=== PATIENT | female | born 1955 | race Caucasian/White ===

== ENCOUNTER 2022-08-03 12:54 | Outpatient (CLI) | payer MEDICARE, OTHER, SELFPAY ==
--- NOTE | ~2022-08-03 | US_ITS ---
EXAMINATION: US carotid duplex BI DATE: 08/03/2022 14:50 INDICATION: Carotid stenosis TECHNIQUE: Grayscale, color Doppler, and pulsed Doppler images of the cervical carotid arteries were obtained. The degree of vessel stenosis is placed in one of the following categories: normal, <50%, 5 0-69%, >=70% but less than near-occlusion, near-occlusion, or total occlusion. Note that percent sten osis relative to normal distal artery lumen diameter is indirectly measured from velocity measurement s as described by Jono, et al. Radiology 2003; 229:340-346. Notes: Normal: Peak systolic velocity <125 centimeters/sec and no plaque <50%. Peak systolic velocity <125 ( EDV <40; ICA/CCA PSV ratio <2.0; used these factors only a tandem lesions or low cardiac output or co ntralateral disease) 50-69 %: PSV 125-230 (EDV 40-100; ratio 2-4) >= 70% but less than near occlusion: PSV greater than 230 (EDV > 100; ratio> 4.0) Near Occlusion: PSV that is variable; markedly narrowed lumen Occlusion: Absent flow on color/spectral Doppler and no lumen on cardona scale. COMPARISON: None. FINDINGS: RIGHT: The right common carotid artery (CCA) peak systolic velocity (PSV) is 78 cm/s. The right internal car otid artery (ICA) PSV is 122 cm/s. The right ICA end-diastolic velocity (EDV) is 19 cm/s. The right I CA/CCA PSV ratio is 1.6. The external carotid artery (ECA) PSV is 232 cm/s. There is antegrade flow i n the right vertebral artery. LEFT: The left CCA PSV is 102 cm/s. The left ICA PSV is 293 cm/s. The left ICA EDV is 62 cm/s. The left ICA /CCA PSV ratio is 2.9. The ECA PSV is 181 cm/s. There is antegrade flow in the left vertebral artery . IMPRESSION: 1. Less than 50% stenosis in the right internal carotid artery by sonographic criteria. 2. Greater than or equal to 70% stenosis in the left internal carotid artery by sonographic criteria. Reviewed, dictated and finalized at location A. HIC DESIGN ASSISTANT IMPRESSION: 1. Less than 50% stenosis in the right internal carotid artery by sonographic c riteria. 2. Greater than or equal to 70% stenosis in the left internal carotid artery by sonographic criteria.
--- NOTE | ~2022-08-03 | US_ITS ---
US art doppler w press LE BI INDICATION: Intermittent claudication bilaterally. TECHNIQUE: Segmental pressures and plethysmographic and Doppler waveforms of the brachial and lower e xtremity arteries were obtained. COMPARISON: None. FINDINGS: Right and left brachial artery pressures of 193 mm Hg and 187 mm Hg, respectively, are concordant (no rmal difference <= 30 mmHg). There is bilateral mixed monophasic and biphasic flow in the lower extre mity arteries. The femoral artery pressures are significantly lower than the brachial pressures, cons istent with inflow disease. The right ankle-brachial index (ALEXIS) is 0.49 (normal >= 0.9-1.0). The right great toe-brachial index (TBI) is 0.26 (normal >= 0.60). The left ALEXIS is 0.41. The left TBI is 0.23. IMPRESSION: 1. Moderate-severe bilateral lower extremity peripheral vascular disease. Reviewed, dictated and finalized at location A. L MAKING SUPERVISOR
== END 2022-08-03 12:55 | disposition home or self-care (01) ==
LOC: ANHIMG 12:56
PROVIDERS: Visit Provider Internal Medicine Cardiovascular Disease
DX: I70.213 Atherosclerosis of native arteries of extremities with intermittent claudication, bilateral legs (principal); I65.23 Occlusion and stenosis of bilateral carotid arteries
CPT/HCPCS: 93880; 93923

== ENCOUNTER 2022-11-26 18:09 | Inpatient (IN) | payer MEDICARE, OTHER, SELFPAY ==
[2022-11-26] VITALS (11 sets, daily range): BP systolic 120–207; BP diastolic 60–87; PULSE 55–82; RESP 10–20; TEMP 36.4–37; O2SAT 96–100; BMI 26.1
--- NOTE | ~2022-11-26 | CT_ITS ---
EXAMINATION: CT abdomen pelvis wo con DATE: 11/26/2022 19:22 INDICATION: Lower abdominal pain TECHNIQUE: Computed tomography (CT) of the abdomen and pelvis was performed without intravenous contr ast. The dose-length product (DLP) was 398.96 mGy-cm. Automated exposure control and iterative recons truction technique were employed. COMPARISON: None FINDINGS: There are two nodules of the right middle lobe which measure 2 mm the heart size is normal. There are changes of prior cardiac surgery. A dialysis catheter ends with its tip in the right atriu m. The gallbladder is surgically absent. The liver, spleen, pancreas, and adrenal glands are normal. There is bilateral atrophy of the kidneys. There is a 3.7 cm fusiform aneurysm of the infrarenal abdo robi aorta. There is calcified atherosclerosis of the aorta and many of the other arteries. A right internal ureteral stent is in expected position. There are multiple dilated loops of small bowel with transition point in the pelvis. There is a spiculated mass of the small bowel mesentery with calcifi cation. There are adjacent lymph nodes of the small bowel mesentery which, although normal in size, c ould reflect metastatic disease A femoral-femoral bypass graft is noted. There is mild lumbar spondyl osis. There are changes of mesh ventral hernia repair. IMPRESSION: 1. 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 Adjacent lymph nodes of the small bowel mesentery could reflect metast atic disease. 2. Fusiform infrarenal abdominal aortic aneurysm. Reviewed, dictated and finalized at location F. IMPRESSION: 1. Small bowel obstruction with transition point in the pelvis, possibly relate d to a carcinoid tumor of the small bowel mesentery. Adjacent lymph nodes of th e small bowel mesentery could reflect metastatic disease. 2. Fusiform infrarenal abdominal aortic aneurysm.
--- NOTE | ~2022-11-26 | XR_ITS ---
EXAMINATION: XR abdomen NG/feed tube insert INDICATION: Nasogastric tube placement TECHNIQUE: Portable AP KUB-NG at 2110 hours COMPARISON: None available FINDINGS: The nasogastric tube is in the stomach. There are multiple dilated loops of small bowel. Th ere is a partially imaged right internal ureteral stent. Changes of mesh ventral hernia repair are no alex. A dialysis catheter ends with its tip in the right atrium. IMPRESSION: 1. Nasogastric tube in the stomach. 2. Small bowel obstruction. Reviewed, dictated and finalized at location F.
--- NOTE | ~2022-11-26 | XR_ITS ---
EXAMINATION: XR fl guide central line place DATE: 11/28/2022 15:54 INDICATION: Central line placement. TECHNIQUE: 5 intraoperative fluoroscopic views of the chest were obtained. I was not present. Fluoros copy exposure time was 17 seconds. COMPARISON: Chest single view 11/28/2022 FINDINGS: The initial image demonstrates a left internal jugular central venous catheter. The second image demonstrates removal of the catheter and a right subclavian central venous catheter with tip in right atrium. Median sternotomy wires and mediastinal surgical clips are seen, likely from prior cor onary artery bypass grafting. The nasogastric tube tip is beyond the inferior margin of the radiograp h, but at least to the stomach. IMPRESSION: 1. Central line tip in right atrium. Reviewed, dictated and finalized at location A.
--- NOTE | ~2022-11-26 | XR_ITS ---
EXAMINATION: XR chest port-a-cath/central DATE: 11/28/2022 15:53 INDICATION: Central line placement. TECHNIQUE: A single frontal view of the chest was obtained. COMPARISON: CT abdomen and pelvis 11/26/2022 FINDINGS: There is mild elevation of right hemidiaphragm. There is mild scarring in right lower lung zone. No pleural effusion or pneumothorax. The heart size is normal. Median sternotomy wires and medi astinal surgical clips are seen, likely from prior coronary artery bypass grafting. The nasogastric t ube tip is in the stomach. Surgical clips in the right upper quadrant are likely from cholecystectomy . A right subclavian central venous catheter is seen with tip in the right atrium. IMPRESSION: 1. Central line tip in right atrium. 2. Chronic mild scarring in right lower lung zone. Reviewed, dictated and finalized at location A.
--- NOTE | ~2022-11-26 | XR_ITS ---
EXAMINATION: XR sm bowel follow through DATE: 11/27/2022 16:21 INDICATION: Small bowel obstruction. TECHNIQUE: Oral contrast was administered, and a time course of radiographs of the abdomen was obtain ed. Fluoroscopy of the small bowel was not performed. Fluoroscopy exposure time was 0 minutes. The to matteo number of images was 5. COMPARISON: CT abdomen and pelvis 11/26/2022 FINDINGS: There are multiple dilated loops of small bowel. There are surgical clips from ventral hernia repair. Vascular stents are noted. The nasogastric tube tip is in the stomach. Surgical clips in the right u pper quadrant are likely from cholecystectomy. There is a right internal ureteral stent in expected p osition. Transit time from the stomach to proximal colon was approximately 1 hour 45 minutes. IMPRESSION: 1. Dilated small bowel with normal transit time of contrast to the colon, consistent with partial sma ll bowel obstruction. Reviewed, dictated and finalized at location A. IMPRESSION: 1. Dilated small bowel with normal transit time of contrast to the colon, consi stent with partial small bowel obstruction.
--- NOTE | ~2022-11-26 | XR_ITS ---
EXAMINATION: XR chest 1V portable DATE: 11/29/2022 14:38 INDICATION: Right lateral chest pain. TECHNIQUE: A single frontal view of the chest was obtained. COMPARISON: Chest single view 11/28/2022 FINDINGS: There is mild elevation of right hemidiaphragm. There is mild scarring in right lower lung zone. No pleural effusion or pneumothorax. The heart size is normal. Median sternotomy wires and medi astinal surgical clips are seen, likely from prior coronary artery bypass grafting. There is a right subclavian central venous catheter tip in right atrium. There is indentation of the catheter between the clavicle and first rib. Surgical clips in the right upper quadrant are likely from cholecystectom y. IMPRESSION: 1. Chronic mild scarring in right lower lung zone. 2. Indentation of the central venous catheter between the clavicle and first rib, which increases the risk of catheter fracture. Reviewed, dictated and finalized at location A. IMPRESSION: 1. Chronic mild scarring in right lower lung zone. 2. Indentation of the central venous catheter between the clavicle and first ri b, which increases the risk of catheter fracture.
--- NOTE | 2022-11-26 19:09 | ED.NAVMDI ---
HPI - Nausea/Vomiting/Diarrhea General Chief complaint: Nausea/Vomiting/Diarrhea <Rebecca Muñiz PA-C - Last Filed: 11/26/22 22:28> Stated complaint: abd pain/vomiting <Rebecca Muñiz PA-C - Last Filed: 11/26/22 22:28> Time Seen by Provider: 11/26/22 18:49 <Rebecca Muñiz PA-C - Last Filed: 11/26/22 22:28> History of Present Illness HPI Narrative: Patient is a 67-year-old female with a history of ESRD on hemodialysis Sunday and through duraflow in her chest (placed 4 months ago at [facility]), numerous vascular bypass surgeries and stenting, hernia repair, SBO x3 treated nonsurgically, here for evaluation of nausea, vomiting and abdominal cramping x2 days. Feels similar to history of bowel obstructions. She took milk of magnesia yesterday and was able to have a bowel movement at noon today, reportedly with her bowel obstruction she usually passes gas as well. She does still make urine and denies any changes to that. Patient followed at [facility] in the past, however was told they do not manage dialysis and therefore will need to find new electric stop installer. <Rebecca Muñiz PA-C - Last Filed: 11/26/22 22:28> Related Data Home medications: Home Medications Medication Instructions Recorded Confirmed aspirin 325 mg tablet 325 mg PO DAILY 11/26/22 11/26/22 carvedilol 6.25 mg tablet 6.25 mg PO BID 11/26/22 11/26/22 clonazepam 1 mg tablet 1 mg PO DAILY PRN Anxiety 11/26/22 11/26/22 furosemide 40 mg tablet 40 mg PO BID 11/26/22 11/26/22 gabapentin 300 mg capsule 300 mg PO HS 11/26/22 11/26/22 hydralazine 25 mg tablet 25 mg PO BID 11/26/22 11/26/22 losartan 25 mg tablet 25 mg PO DAILY 11/26/22 11/26/22 nifedipine 60 mg tablet,extended 60 mg PO DAILY 11/26/22 11/26/22 release thyroid (pork) 60 mg tablet ([employer] SERVICE SUPERVISOR 60 mg PO QAM 11/26/22 11/26/22 Thyroid) <Rebecca Muñiz PA-C - Last Filed: 11/26/22 22:28> Allergies/Adverse reactions: Allergies Allergy/AdvReac Type Severity Reaction Status Date / Time iohexol Allergy Rash Verified 11/26/22 18:20 [From contrast - CT, X-RAY] fentanyl AdvReac Other Verified 11/26/22 18:19 <SAI Fuentes Last Filed: 11/26/22 22:28> Review of Systems Review of Systems: Gen.: Denies fevers or chills Eyes: Denies eye pain or visual change ENT: Denies congestion Respiratory: Denies shortness of breath or cough CV: Denies chest pain or palpitations GI: Reports abdominal pain, nausea and vomiting denies burning, urgency, frequency or hematuria Musculoskeletal: Denies back pain or muscle pain Neuro: Denies numbness, tingling, weakness or focal weakness Skin: Denies rash Except as documented, all other systems reviewed and negative <Rebecca Muñiz PA-C - Last Filed: 11/26/22 22:28> [facility] Past Medical History Medical History: Medical History (Updated 11/28/22 @ 12:59 by Jazlyn Cai MD) Atrial fibrillation 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 No longer on chronic anticoagulation due to bleeds History of small bowel obstruction Hypothyroidism Kidney stones Peripheral artery disease Moderate to severe bilateral lower extremity peripheral vascular disease noted on ABIs July 2022 <Rebecca Muñiz PA-C - Last Filed: 11/26/22 22:28> Surgical History Surgical History: Surgical History (Updated 11/27/22 @ 15:13 by AGUSTINA Muhammad) History of abdominal aortic aneurysm repair (1997) Open repair History of cardiac radiofrequency ablation History of four vessel coronary artery bypass graft (1997) History of vascular surgery History of ve
[2022-11-26] MEDS: ONDANSETRON INJ 4 MG/2 ML VIAL IV PUSH (19:43)
[2022-11-26 19:51] LABS: Basophils Absolute Auto 0.1 K/mm3 (0.0-0.1); Basophils Percent Auto 0.4 % (0.2-1.2); Eosinophils Absolute Auto 0.1 K/mm3 (0-0.3); Eosinophils Percent Auto 0.8 % (0-4.4); Hematocrit 41.2 % (37.0-47.0); Hemoglobin 13.5 g/dL (12.0-15.0); Immature Granulocyte Absolute 0.08 K/mm3 (0.00-0.031); Immature Granulocyte Percent A 0.5 % (0-0.5); Lymphocytes Absolute Auto 1.03 K/mm3 (0.9-3.2); Lymphocytes Percent Auto 6.6 % (18.3-44.2); Mean Corpuscular HGB Conc 32.8 g/dl (32-36); Mean Corpuscular Hemoglobin 29.7 pg (26-34); Mean Corpuscular Volume 90.7 fl (80-100); Mean Platelet Volume 10.6 fl (7.4-10.4); Monocytes Percent Auto 6.4 % (2.6-8.5); Neutrophils Absolute Auto 13.3 K/mm3 (1.3-6.7); Neutrophils Percent Auto 85.3 % (45.5-73.1); Platelet Count Result 324 k/mm3 (150-375); Red Blood Count 4.54 M/mm3 (4.2-5.4); Red Cell Distribution Width 12.9 % (11.5-14.5); White Blood Count 15.6 K/mm3 (4.5-10.0)
[2022-11-26 19:59] LABS: Alanine Aminotransferase 17 U/L (6-35); Albumin Level 5.1 g/dL (3.5-5.1); Alkaline Phosphatase 84 U/L (38-126); Anion Gap 16 mmol/L (8-16); Aspartate Amino Transferase 25 U/L (14-36); Bilirubin,Total 0.8 mg/dL (0.2-1.3); Blood Urea Nitrogen 49 mg/dL (7-17); Calcium 10.8 mg/dL (8.4-10.2); Carbon Dioxide 25 mmol/L (22-30); Chloride 95 mmol/L (98-107); Estimated CRCL calculation 8 ml/min; Estimated Glomerular Filt Rate 9; Glucose 121 mg/dL (65-110); Lactic Acid Reflex 1.3 mmol/L (0.7-2.0); Lipase 101 U/L (23-300); Magnesium 3.4 mg/dL (1.6-2.3); Potassium 4.5 mmol/L (3.4-5.0); Sodium 136 mmol/L (137-145)
[2022-11-26 20:08] LABS: Appearance Urine Cloudy (Clear); Bacteria Urine None Seen /hpf; Bilirubin Urine Negative (Negative); Blood Urine Negative (Negative); Color Urine Yellow (Yellow); Glucose Urine UA Negative (Negative); Ketones Urine Negative (Negative); Leukocyte Esterase Ur 2+ LEU/UL (Negative); Need Manual Microscopic Reviewed; Nitrate Urine Negative (Negative); Non Pathogenic Casts >20; Protein Urine 3+ mg/dL (Negative); Specific Grav Ur 1.017 (1.001-1.035); Squamous Epithelial Cell Urine Moderate /hpf (Few); Urobilinogen Urine 0.2 mg/dL (<2.0); WBC Urine >100 /hpf; pH Urine 5.5 (5.0-9.0)
[2022-11-26 20:17] LABS: Add Urine Microscopic? YES
[2022-11-26] MEDS: SODIUM CHLORIDE 0.9% IV 1,000 ML 500 ML IV CONT (20:36)
--- NOTE | 2022-11-26 23:53 | PM.IMHP ---
H&P: HPI History of Present Illness Date/Time: 11/26/22 23:53 Chief Complaint: ?Pain like when I have my bowel obstructions? Narrative: 67-year-old female with a past medical history of multiple abdominal surgeries, coronary disease status post four-vessel CABG, aortic aneurysm repair, peripheral vascular disease, COPD, essential hypertension, hypothyroidism and end-stage renal disease who presented to the ER with abdominal pain nausea and vomiting similar to when she has had her prior bowel obstructions. The patient reports that she has had bowel obstructions as far back as 2017 due to her history of multiple abdominal surgeries. The patient reports that she began having nausea vomiting and abdominal cramping 2 days prior to presentation. She tried to manage this at home with just eating puddings and soft foods as well as clear liquids. However she has not been able to keep anything down for over 24 hours. She last ate something on the morning of the . After that time her abdominal pain got per aggressively worse. She has continued to have soft mushy bowel movements. She took a dose of milk of magnesia yesterday. She had another small mushy stool after she arrived to the medical floor. She she is passing gas but states that she usually is able to pass gas with her bowel obstructions. Her abdominal pain is improved significantly since NG tube has been placed. She has had about 250 mL out of the NG since she arrived to the medical floor. She states that she still makes urine but does get frequent urinary tract infections since she started on dialysis 1.5 years ago. Her dialysis is on Sunday and Sunday. She usually gets her care at [facility] but they told her the last time she was there that she needs to go to a different hospital when she is having issues since they no longer provide dialysis services inpatient. She reports that she has 2 small vessels to have a AV fistula created and is afraid to have an AV graft created as she has had problems with clotting of her intra-abdominal graft in the past. She had a right-sided dialysis catheter in the right upper chest but it was nonfunctioning and had it replaced 5 months ago she now has 1 in the left upper chest. She reports that she is no longer on anticoagulants besides full-dose aspirin due to history of multiple GI bleeds. The patient was hypertensive in the ER. On arrival to the medical floor patient was diet denying any pain but was markedly hypertensive. She reports that she had not been able to take her antihypertensives today. Dose of IV hydralazine and IV MAX-inhibitor was provided and patient improvement blood pressures. She reports that she at times will not completely empty her bladder and has to sit on the toilet to let her bladder drain. She denies any current dysuria. She has not been having any fevers or chills. She denies chest pain or shortness of breath. Review of Systems Review of Systems: 12 systems were reviewed with pertinent positives and negatives per HPI. Except as documented in the HPI, all other systems were reviewed and are negative. [facility] Past Medical History Medical History (Updated 11/27/22 @ 08:15 by Cleo Guzman DO) Atrial fibrillation Coronary artery disease End-stage renal disease on hemodialysis Essential hypertension History of GI bleed Multiple and requiring transfusion. No longer on chronic anticoagulation due to bleeds Hypothyroidism Kidney stones Peripheral artery disease Surgical History Surgical History (Updated 11/27/22 @ 08:15 by Cleo Guzman DO) History of abdominal aortic aneurysm repair (1997) Open repair History of cardiac radiofrequency ablation History of four vessel coronary artery bypass graft (1997) History of ventral hernia repair With mesh Hx laparoscopic cholecystectomy (~2000) Retained ureteral stent Chronic S/P dialysis catheter insertion Right upper chest was placed and r
[2022-11-27 00:48] VITALS: BP 158/65
[2022-11-27] MEDS: hydrALAZINE HCL 20 MG/ML VIAL 10 MG IV PUSH (01:06)
[2022-11-27] MEDS: ENALAPRILAT 1.25 MG/ML VIAL IV PUSH ×5 (01:06→23:24)
[2022-11-27] MEDS: SODIUM CHLORIDE 0.9% IV 1,000 ML 30 ML IV CONT ×2 (01:06→15:25)
[2022-11-27 05:15] VITALS: BP 127/42; PULSE 61; RESP 17; TEMP 37; O2SAT 95
[2022-11-27 08:15] LABS: Basophils Absolute Auto 0.1 K/mm3 (0.0-0.1); Basophils Percent Auto 0.4 % (0.2-1.2); Eosinophils Absolute Auto 0.1 K/mm3 (0-0.3); Eosinophils Percent Auto 0.8 % (0-4.4); Hematocrit 36.2 % (37.0-47.0); Hemoglobin 11.9 g/dL (12.0-15.0); Immature Granulocyte Absolute 0.04 K/mm3 (0.00-0.031); Immature Granulocyte Percent A 0.3 % (0-0.5); Lymphocytes Absolute Auto 1.29 K/mm3 (0.9-3.2); Lymphocytes Percent Auto 9.8 % (18.3-44.2); Mean Corpuscular HGB Conc 32.9 g/dl (32-36); Mean Corpuscular Hemoglobin 30.1 pg (26-34); Mean Corpuscular Volume 91.6 fl (80-100); Mean Platelet Volume 10.2 fl (7.4-10.4); Monocytes Absolute Auto 1.3 K/mm3 (0.1-0.6); Monocytes Percent Auto 9.7 % (2.6-8.5); Neutrophils Absolute Auto 10.4 K/mm3 (1.3-6.7); Platelet Count Result 263 k/mm3 (150-375); Red Blood Count 3.95 M/mm3 (4.2-5.4); Red Cell Distribution Width 13.2 % (11.5-14.5); White Blood Count 13.2 K/mm3 (4.5-10.0)
[2022-11-27 08:25] LABS: Alanine Aminotransferase 14 U/L (6-35); Albumin Level 4.4 g/dL (3.5-5.1); Alkaline Phosphatase 63 U/L (38-126); Anion Gap 11 mmol/L (8-16); Aspartate Amino Transferase 20 U/L (14-36); Bilirubin,Total 0.6 mg/dL (0.2-1.3); Blood Urea Nitrogen 59 mg/dL (7-17); Calcium 9.4 mg/dL (8.4-10.2); Carbon Dioxide 31 mmol/L (22-30); Chloride 96 mmol/L (98-107); Estimated CRCL calculation 7 ml/min; Estimated Glomerular Filt Rate 8; Glucose 113 mg/dL (65-110); Phosphorus 6.5 mg/dL (2.5-4.5); Potassium 3.7 mmol/L (3.4-5.0); Sodium 138 mmol/L (137-145)
[2022-11-27 09:10] LABS: Hepatitis B Surface Antigen Negative (Negative)
[2022-11-27 09:16] LABS: HAV RESULT Negative (Negative); Hepatitis B Core IgM Result Negative (Negative)
[2022-11-27 09:29] LABS: Hepatitis B Surface Anti Res Indeterminate; Hepatitis C Virus Antibody Negative (Negative)
--- NOTE | 2022-11-27 10:28 | PC.NURSE ---
Pt past medical hx is extensive. Pt brought in paperwork outlining most of her procedures. Entered into hx. Paper copied and placed into chart.
--- NOTE | 2022-11-27 11:34 | PM.CNNEP ---
Assessment and Plan Assessment and plan (1) End stage renal disease: Code(s): N18.6 - End stage renal disease Status: Chronic Assessment and Plan: will plan HD today normally does HD on Mondays and Fridays follow electrolytes, volume status, and clearance (2) Small bowel obstruction: Code(s): K56.609 - Unspecified intestinal obstruction, unspecified as to partial versus complete obstruction Status: Acute Assessment and Plan: as evidenced by history and imaging studies NG tube in place for decompression Surgery consulted for further recommendations continue current therapy (3) Essential hypertension: Code(s): I10 - Essential (primary) hypertension Status: Chronic Assessment and Plan: noted fluctuations since admission suspect pain issues playing a role along with inability to take po BP medications recommend PRN IV medications (i.e. hydralazine or labetalol) for now until she can resume home oral BP medications follow trend of hemodynamics (4) Mesenteric mass: Code(s): K63.89 - Other specified diseases of intestine Status: Acute Assessment and Plan: spiculated mass of the small bowel mesentery with calcification, concerning for possible carcinoid tumor Surgery to see I will continue follow patient with you while she remains hospitalized make further recommendations during her hospital course. Thank you for allowing me to participate in the care of this patient. History of Present Illness Reason for Consult Consult date: 11/27/22 Reason for consult: end stage renal disease Chief Complaint Chief complaint: small bowel obstruction History of Present Illness Narrative: The patient is a 67-year-old female with a past medical history as outlined below who presented to [facility] Emergency Room due to complaints of abdominal pain. The patient reports that her abdominal pain in association with nausea and vomiting for last 2-3 days. Initially, she tried to conservative management with just clear liquids and soft foods but when the nausea and vomiting started to occur, she became quite concern. She has a known history of small-bowel obstructions that date back to 2018 secondary to her multiple abdominal surgeries in the past. The symptoms that she was having for last 2-3 days are quite similar to her previous episodes of small-bowel obstructions. Her abdominal pain has progressively worsened although she reports she has had still some soft bowel movements and has been passing flatus. Nonetheless, she came to the emergency room for further assessment Workup and evaluation in the emergency room demonstrated the patient be hemodynamically stable if not hypertensive and in mild to moderate distress secondary to her abdominal pain routine blood test demonstrated labs consistent with her known history of end-stage renal disease with no critical electrolyte abnormalities noted. Subsequent imaging of her abdomen was consistent with a small-bowel obstruction. An NG tube was placed for decompression and general surgery was consulted for further recommendations. She was subsequently admitted to the hospital for further evaluation and therapy. Renal consultation was requested due to her end-stage renal disease. The patient normally dialyzes on a Sunday and Sunday schedule currently at [facility] under the care of Dr. Grey. Prior to this, she was receiving dialysis at [facility] but this facility recently closed down. I am not entirely sure why she only dialyzes 2 times a week but presumably she has significant residual kidney function that allows her to not need 3 time a week dialysis treatments. Her last dialysis treatment was on 11/24/2022. She tells me that she has had issues and problems with dialysis access placement secondary to her significant and profound peripheral vascular disease and a
[2022-11-27] MEDS: ONDANSETRON INJ 4 MG/2 ML VIAL IV PUSH ×2 (12:29→17:16)
--- NOTE | 2022-11-27 13:33 | PM.EVENT ---
Event Note Event Note Event Note: Informed by dialysis nurse that patient's tunneled HD catheter is non-functional despite several attempts at use. Her last treatment was on Sunday (11/24/22) and there were apparently some issues per patient at that time but she was able to complete her treatment. She is unable to recall who or when her current HD catheter was placed but does report she has had several HD catheter exchanges in the past secondary to general HD catheter dysfunction. Will ask Surgery if they can attempt a guidewire exchange of her current HD catheter -- if this is not successful or her new HD catheter still has issues, she may need transfer to another facility that has Vascular Surgery or Interventional Radiology capable of the intervention she needs.
--- NOTE | 2022-11-27 14:10 | PM.IMPN ---
Progress Note: A&P Assessment and Plan (1) Small bowel obstruction: Code(s): K56.609 - Unspecified intestinal obstruction, unspecified as to partial versus complete obstruction Status: Acute Assessment and Plan: Pt does have history of SBO and has had multiple prior abdodminal surgeries. 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 antihypertensives are on hold while NPO appreciate nephrology recommendations for BP control continue IV vasotec q.6 while NPO (3) End-stage renal disease on hemodialysis: Code(s): N18.6 - End stage renal disease; Z99.2 - Dependence on renal dialysis Status: Acute Assessment and Plan: patient is maintained on hemodialysis on Mondays and Fridays appreciate nephrology consultation for dialysis management attempted dialysis today, however tunneled dialysis catheter not functioning. General surgery aware and will await further recommendations (4) Sterile pyuria: Code(s): R82.81 - Pyuria Status: Acute Assessment and Plan: The patient has pyuria but no bacteriuria. She does not have any significant symptoms of UTI. No antibiotics indicated. urine culture is pending Subjective Date/time seen: 11/27/22 14:10 Interval history: date of service: 11/27/2022 Mary Ramirez is a 67-year-old female with a history of ESRD on hemodialysis,bperipheral artery disease, hypertension, and atrial fibrillation who is seen in follow-up for small bowel obstruction. Patient reports she is feeling slightly improved today. She does endorse abdominal cramping. States that her abdominal bloating has improved. She denies nausea or vomiting. She denies fever, chills, sweats, dizziness, or lightheadedness. She reports having approximately 4-5 stools today that she describes as mushy brown. She denies shortness of breath, cough, or chest pain. Does complain of sore throat secondary to NG tube. Review of Systems Review of Systems: 12 systems were reviewed with pertinent positives and negatives per HPI. Except as documented in the HPI, all other systems were reviewed and are negative. All systems reviewed & are unremarkable except as noted in HPI and below Exam Narrative: General: thin, well-appearing 67-year-old female, sitting up in bed, comfortable, NARD Neuro: awake, alert and oriented x4, speech clear, no focal neuro deficits noted HEENMT: normocephalic, atraumatic, EOMI, sclerae anicteric, moist oral mucosa Respiratory: clear to auscultation bilaterally, nonlabored breathing Cardio: regular rate, regular rhythm with S1-S2 Abdomen: nondistended, normoactive bowel sounds, soft, nontender to palpation Extremities: no edema, erythema, or tenderness to palpation, DP pulses 2+ bilaterally Skin: no rashes or lesions, warm and dry Psych: appropriate mood and affect, judgment and insight intact Objective Data Vital Signs Vital Signs: Vital Signs - 24 hr 11/26/22 18:15 11/26/22 20:32 11/26/22 20:47 Temperature 97.5 F L Pulse Rate 69 63 61 Respiratory Rate 20 13 14 Blood Pressure 123/67 189/79 H 177/72 H Pulse Oximetry 100 99 100 Oxygen Delivery Room Air 11/26/22 21:17 11/26/22 21:32 11/26/22 21:40 Temperature Pulse Rate 65 66 63 Respiratory Rate 13 12 10 L
--- NOTE | 2022-11-27 14:35 | PM.CNGS ---
Assessment and Plan Assessment and plan (1) Small bowel obstruction: Code(s): K56.609 - Unspecified intestinal obstruction, unspecified as to partial versus complete obstruction Status: Acute Assessment and Plan: Patient has had multiple previous abdominal surgeries and at least three previous episodes of small bowel obstructions since 2018. CT showed evidence of a small bowel obstruction with a mesenteric mass concerning for possible carcinoid. Her small bowel obstruction could also be related to intraabdominal adhesions from previous surgeries. There are no peritoneal signs on exam. Lactic acid normal. Her abdominal pain has already improved and her abdomen is not distended. She has also had a few liquid bowel movements overnight. Does not appear to have a high-grade small bowel obstruction or acute abdomen at this time. Will continue conservative measures with NG tube decompression, bowel rest, IV fluids, and analgesics as needed. Will order a water-soluble small bowel follow through to further evaluate the obstruction. (2) Mesenteric mass: Code(s): K63.89 - Other specified diseases of intestine Status: Acute Assessment and Plan: CT suggests a spiculated mass of the small bowel mesentery with calcification, concerning for possible carcinoid tumor. Will review CT with Radiologist. Patient denies any known history of a mesenteric mass with previous obstruction. (3) Hemodialysis catheter malfunction: Code(s): T82.41XA - Breakdown (mechanical) of vascular dialysis catheter, initial encounter Status: Acute Assessment and Plan: Left chest tunneled hemodialysis catheter is not functioning. Nephrology requesting to replace the catheter for hemodialysis, which is not currently emergent. Discussed this with Dr. Sal and will work on planning accordingly. (4) End-stage renal disease on hemodialysis: Code(s): N18.6 - End stage renal disease; Z99.2 - Dependence on renal dialysis Status: Acute Assessment and Plan: Nephrology following. She last received hemodialysis on Sunday and they were unable to do dialysis today due to catheter malfunction. See above. (5) Peripheral artery disease: Code(s): I73.9 - Peripheral vascular disease, unspecified Status: Acute (6) History of abdominal aortic aneurysm repair: Onset Date: 1997 Code(s): Z98.890 - Other specified postprocedural states Status: Resolved Plan I have discussed the patient's case and plan of care with Dr. Sal. Thank you for allowing us to see the patient in consultation and we will continue to follow along with you. History of Present Illness Consult details Consult date: 11/27/22 Reason for consult: other (Small bowel obstruction with possible mesenteric mass) Requesting physician: Rebecca Muñiz PA-C Narrative: This is a 67-year-old woman with multiple previous abdominal and vascular surgeries, with a past medical history significant for CAD s/p four-vessel CABG, aortic aneurysm repair, peripheral vascalar disease, COPD, end-stage renal disease on hemodialysis, hypertension, and multiple other medical problems, who presented to the ER via EMS for evaluation of abdominal pain. She has a history of small bowel obstructions in the past, reportedly three since 2018, that have been managed conservatively. She reports an onset of lower abdominal pain that was cramping in nature, starting yesterday. She developed nausea and vomiting. Her symptoms felt similar to previous bowel obstructions. She has been treated at [facility] in the past and was told to go to another facility if she has another bowel obstruction that could also manage her hemodialysis, therefore she presented here for evaluation. Labs showed a WBC count of 15,[address] and l[address] acid [address]3. [address] scan of the abdomen and pelvis showed a small bowel obstruction with transition point in the pelvis, possibly related to a carcinoid tumor of th
[2022-11-27] MEDS: LORazepam INJ (*CRX) 2 MG/ML VIAL 0.5 MG IV PUSH ×2 (15:26→23:47)
[2022-11-27 15:28] VITALS: BP 128/65; PULSE 64; RESP 16; TEMP 37.2; O2SAT 100
[2022-11-27] MEDS: PANTOPRAZOLE SODIUM IV 40 MG VIAL IV PUSH (17:05)
[2022-11-27 20:39] VITALS: BP 149/58; PULSE 65; RESP 17; TEMP 36.8; O2SAT 98
[2022-11-27 23:25] VITALS: BP 147/55
[2022-11-28] VITALS (23 sets, daily range): BP systolic 141–198; BP diastolic 42–97; PULSE 64–82; RESP 14–20; TEMP 36–37; O2SAT 92–100
[2022-11-28] MEDS: ENALAPRILAT 1.25 MG/ML VIAL IV PUSH ×3 (05:12→23:46)
[2022-11-28] MEDS: LORazepam INJ (*CRX) 2 MG/ML VIAL 0.5 MG IV PUSH ×2 (05:15→20:07)
[2022-11-28 05:37] LABS: Hematocrit 38.1 % (37.0-47.0); Mean Corpuscular HGB Conc 31.5 g/dl (32-36); Mean Corpuscular Hemoglobin 29.9 pg (26-34); Mean Platelet Volume 10.6 fl (7.4-10.4); Platelet Count Result 279 k/mm3 (150-375); Red Blood Count 4.01 M/mm3 (4.2-5.4); Red Cell Distribution Width 13.5 % (11.5-14.5); White Blood Count 11.9 K/mm3 (4.5-10.0)
[2022-11-28 05:58] LABS: Anion Gap 15 mmol/L (8-16); Blood Urea Nitrogen 70 mg/dL (7-17); Calcium 9.2 mg/dL (8.4-10.2); Carbon Dioxide 27 mmol/L (22-30); Chloride 104 mmol/L (98-107); Estimated CRCL calculation 6 ml/min; Estimated Glomerular Filt Rate 6; Glucose 102 mg/dL (65-110); Potassium 3.5 mmol/L (3.4-5.0); Sodium 146 mmol/L (137-145)
[2022-11-28] MEDS: PANTOPRAZOLE SODIUM IV 40 MG VIAL IV PUSH (08:40)
--- NOTE | 2022-11-28 11:11 | PM.PNGS ---
Progress Note: A&P Assessment and Plan (1) Small bowel obstruction: Code(s): K56.609 - Unspecified intestinal obstruction, unspecified as to partial versus complete obstruction Status: Acute Assessment and Plan: Small bowel follow through showed contrast moving through to the colon in under 2 hours. No evidence of a high-grade obstruction. Bowels are moving and she is clinically improving. Will clamp her NG for now. She will remain NPO for replacement of her dialysis catheter later today. (2) Mesenteric mass: Code(s): K63.89 - Other specified diseases of intestine Status: Acute (3) Hemodialysis catheter malfunction: Code(s): T82.41XA - Breakdown (mechanical) of vascular dialysis catheter, initial encounter Status: Acute Assessment and Plan: Left chest dialysis catheter not functioning. Dr. Sal spoke with Nephrology who is requesting we attempt to replace the catheter. Plan to proceed with replacement of Permacath later today. Description of the procedure, risks, benefits, and alternatives were discussed with the patient. She agrees to proceed. (4) End-stage renal disease on hemodialysis: Code(s): N18.6 - End stage renal disease; Z99.2 - Dependence on renal dialysis Status: Acute Plan I have discussed the patient's case and plan of care with Dr. Sal. Subjective Subjective Date/Time Seen: 11/28/22 09:11 Patient reports: no new complaints, feels better, pain is less, flatus, bowel movement and diarrhea Interval history: Patient doing better today. She denies any abdominal pain. She reports some mild nausea overnight but has not received any Zofran since 5pm yesterday with improvement. Reports multiple liquid BMs since her SBFT yesterday. No other complaints at this time. Exam Const: General: comfortable and no acute distress Orientation/consciousness: patient oriented x3 GI: Inspection: non-distended GI Palp: Yes Soft to palpation (soft with some firmness to the mid lower abdomen ), Yes Tenderness to palpation present (GI) (mild improved lower abdominal tenderness, reportedly chronic), No Guarding due to palpation present (GI) and No Rebound tenderness present Auscultation: normal bowel sounds Psych: Mental Status: mental status grossly normal Insight: Good insight present (Psych) Objective Data Vital Signs Vital Signs: Vital Signs - 24 hr 11/27/22 15:28 11/27/22 20:39 11/27/22 23:25 Temperature 98.9 F 98.2 F Pulse Rate 64 65 Respiratory Rate 16 17 Blood Pressure 128/65 149/58 H 147/55 H Pulse Oximetry 100 98 11/28/22 04:59 Temperature 98.4 F Pulse Rate 66 Respiratory Rate 17 Blood Pressure 143/51 H Pulse Oximetry 99 Intake/Output Intake/Output: Intake & Output 11/25/22 11/26/22 11/27/22 11/28/22 23:59 23:59 23:59 23:59 Intake Total 500 240 Output Total 400 1 400 Balance 100 -1 -160 Meds/Results Medications: Active Medications Generic Name Dose Route Start Last Admin Trade Name Freq PRN Reason Stop Dose Admin Enalaprilat 1.25 mg 11/27/22 00:00 11/28/22 05:12 Enalaprilat 1.25 Mg/Ml Vial IV PUSH 1.25 mg Q6HR ANDRÉS Administration Hydralazine HCl 10 mg 11/26/22 23:54 11/27/22 01:06 Hydralazine Hcl 20 Mg/Ml Vial IV PUSH 10 mg Q4H PRN Administration SBP greater than 160 Albumin Human 50 mls @ 999 mls/hr 11/27/22 11:56 Albutein IVPB 12/27/22 11:55 Q10M PRN HYPOTENSION Sodium Chloride 1,000 mls @ 30 mls/hr 11/27/22 14:40 11/27/22 15:25 Normal Saline Iv IV CONT 30 mls/hr .Q24H ANDRÉS Administration Lorazepam 0.5 mg 11/27/22 23:39 11/28/22 05:15 Lorazepam Inj (*Crx) 2 Mg/Ml Vial IV PUSH 0.5 mg Q4H PRN Administration Anxiety Ondansetron HCl 4 mg 11/26/22 21:10 11/27/22 17:16 Ondansetron Inj 4 Mg/2 Ml Vial IV PUSH 4 mg Q4H PRN Administration Nausea Pantoprazole Sodium 40 mg 11/27/22 15:05 11/28/22 08:40 Pantoprazole Sodium Iv 40 Mg
--- NOTE | 2022-11-28 12:36 | WPDHPUPDATE1 ---
History and Physical Update Update Date/Time: 11/28/22 12:36 History and Physical has been reviewed, including an updated exam of the patient. There are NO changes in the patient's condition. Risks, benefits, and alternatives have been discussed and questions answered. Patient agrees to proceed with procedure.
--- NOTE | 2022-11-28 12:44 | WPDHPUPDATE1 ---
History and Physical Update Update Date/Time: 11/28/22 12:44 History and Physical has been reviewed, including an updated exam of the patient. There are NO changes in the patient's condition. Risks, benefits, and alternatives have been discussed and questions answered. Patient agrees to proceed with procedure.
--- NOTE | 2022-11-28 13:03 | WPDANESEPPF ---
Anes - Initial Pre Proc Eval Procedure: Operation Date: 11/28/22 20:30 Proposed Procedures p Replacment Permacath - Abdifatah Sal MD Date/Time: 11/28/22 13:03 Surgeon: Betsy Murray PA-C Pre Op Diagnosis: small bowel obstruction Patient Data Age: 67 Gender: F Height: 1.57 m Weight: 64.6 kg Last Vital Signs Temp 36.9 C 11/28/22 04:59 Pulse 66 11/28/22 04:59 Resp 17 11/28/22 04:59 BP 143/51 H 11/28/22 04:59 Pulse Ox 99 11/28/22 04:59 O2 Del Method Room Air 11/26/22 22:46 Allergies Allergy/AdvReac Type Severity Reaction Status Date / Time iohexol Allergy Rash Verified 11/26/22 18:20 [From contrast - CT, X-RAY] fentanyl AdvReac Other Verified 11/26/22 18:19 Home Medications Medication Instructions Recorded Confirmed Type aspirin 325 mg tablet 325 mg PO DAILY 11/26/22 11/26/22 History carvedilol 6.25 mg tablet 6.25 mg PO BID 11/26/22 11/26/22 History clonazepam 1 mg tablet 1 mg PO DAILY PRN Anxiety 11/26/22 11/26/22 History furosemide 40 mg tablet 40 mg PO BID 11/26/22 11/26/22 History gabapentin 300 mg capsule 300 mg PO HS 11/26/22 11/26/22 History hydralazine 25 mg tablet 25 mg PO BID 11/26/22 11/26/22 History losartan 25 mg tablet 25 mg PO DAILY 11/26/22 11/26/22 History nifedipine 60 mg tablet,extended 60 mg PO DAILY 11/26/22 11/26/22 History release thyroid (pork) 60 mg tablet ([employer]GER 60 mg PO QAM 11/26/22 11/26/22 History Thyroid) Laboratory Tests 11/28/22 05:00 WBC 11.9 H K/mm3 (4.5-10.0) RBC 4.01 L M/mm3 (4.2-5.4) Hgb 12.0 g/dL (12.0-15.0) Hct 38.1 % (37.0-47.0) MCV 95.0 fl (80-100) MCH 29.9 pg (26-34) MCHC 31.5 L g/dl (32-36) RDW 13.5 % (11.5-14.5) Plt Count 279 k/mm3 (150-375) MPV 10.6 H fl (7.4-10.4) Sodium 146 H mmol/L (137-145) Potassium 3.5 mmol/L (3.4-5.0) Chloride 104 mmol/L (98-107) Carbon Dioxide 27 mmol/L (22-30) Anion Gap 15 mmol/L (8-16) BUN 70 H D mg/dL (7-17) Creatinine 6.80 H mg/dL (0.7-1.0) Estim Creat Clear Calc 6 ml/min Estimated GFR 6 L (59 - ) Glucose 102 mg/dL (65-110) Calcium 9.2 mg/dL (8.4-10.2) Patient hx anesthesia problems: none Family hx anesthesia problems: none Results Review: All pre-operative results and documents have been reviewed as part of the pre-operative evaluation. 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 No longer on chronic anticoagulation due to bleeds History of small bowel obstruction Hypothyroidism Kidney stones Peripheral artery disease Moderate to severe bilateral lower extremity peripheral vascular disease noted on ABIs July 2022 Surgical History Surgical History (Updated 11/27/22 @ 15:13 by AGUSTINA Muhammad) History of abdominal aortic aneurysm repair (1997) Open repair History of cardiac radiofrequency ablation History of four vessel coronary artery bypass graft (1997) History of vascular surgery History of ventral hernia repair With mesh Hx laparoscopic cholecystectomy (~2000) Retained ureteral stent Chronic S/P dialysis catheter insertion Right upper chest was placed and removed, currently in left upper chest Stenosis of right femoral artery Status post stent approximately 1994 Family History Family History Sibling Acute myocardial infarction Hx of CABG Sibling , As a child Third degree burn injury Sibling Opiate abuse,
[2022-11-28] MEDS: SODIUM CHLORIDE 0.9% IV 500 ML 30 ML IV CONT (13:07)
[2022-11-28] MEDS: VANCOMYCIN HCL 500 MG in DEXTROSE 5% 100 ML IVPB (13:12)
[2022-11-28] MEDS: HEPARIN SODIUM 1,000 UNITS/ML VIAL 1000 UNITS IV PUSH (13:46)
[2022-11-28] MEDS: HEPARIN SODIUM 5,000 UNITS/ML VIAL 5000 UNITS IRRIGATION (13:47)
[2022-11-28] MEDS: LIDO 1%/EPINEPHRINE 1:100,000 50 ML VIAL 10 ML INFILTRATE (13:51)
[2022-11-28] MEDS: BUPivacaine HCL 0.5% PF 30 ML VIAL INFILTRATE (13:51)
--- NOTE | 2022-11-28 16:15 | PM.IMPN ---
Progress Note: A&P Assessment and Plan (1) Small bowel obstruction: Code(s): K56.609 - Unspecified intestinal obstruction, unspecified as to partial versus complete obstruction Status: Acute Assessment and Plan: Pt does have history of SBO and has had multiple prior abdominal surgeries. 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 Continue with fluids to keep vein open 30 mL an hour but will avoid any more aggressive IV fluid hydration due to ESRD (2) Essential hypertension: Code(s): I10 - Essential (primary) hypertension Status: Chronic Assessment and Plan: BP has been poorly controlled Likely due to missed p.o. antihypertensives which are on hold while NPO appreciate nephrology recommendations for BP control continue IV vasotec q.6 while NPO P.r.n. hydralazine as needed for systolic BP greater than 160 (3) End-stage renal disease on hemodialysis: Code(s): N18.6 - End stage renal disease; Z99.2 - Dependence on renal dialysis Status: Acute Assessment and Plan: patient is maintained on hemodialysis on Mondays and Fridays appreciate nephrology consultation for dialysis management attempted dialysis on 11/27/2022 but not able to be completed due to dialysis catheter malfunction Planning for PermCath replacement this evening per General surgery. NPO (4) Sterile pyuria: Code(s): R82.81 - Pyuria Status: Acute Assessment and Plan: The patient has pyuria but no bacteriuria. She does not have any significant symptoms of UTI. No antibiotics indicated. urine culture with mixed genital kraig not indicative of UTI Subjective Date/time seen: 11/28/22 16:15 Interval history: date of service: 11/27/2022 Mary Ramirez is a 67-year-old female with a history of ESRD on hemodialysis, peripheral artery disease, hypertension, and atrial fibrillation who is seen in follow-up for small bowel obstruction. She states that her abdominal discomfort is better today. She has no abdominal pain or bloating. She does have intermittent mild abdominal cramps. She reports 3 watery stools this morning. Denies fevers or chills. Complains of feeling fatigued. No shortness of breath, cough, or chest pain. Review of Systems Review of Systems: All systems reviewed & are unremarkable except as noted in HPI and below Exam Narrative: General: thin, well-appearing 67-year-old female, sitting up in bed, comfortable, NARD Neuro: awake, alert and oriented x4, speech clear, no focal neuro deficits noted HEENMT: normocephalic, atraumatic, EOMI, sclerae anicteric, moist oral mucosa Respiratory: clear to auscultation bilaterally, nonlabored breathing Cardio: regular rate, regular rhythm with S1-S2 Abdomen: nondistended, normoactive bowel sounds, soft, nontender to palpation Extremities: no edema, erythema, or tenderness to palpation, DP pulses 2+ bilaterally Skin: no rashes or lesions, warm and dry Psych: appropriate mood and affect, judgment and insight intact Objective Data Vital Signs Vital Signs: Vital Signs - 24 hr 11/27/22 20:39 11/27/22 23:25 11/28/22 04:59 Temperature 98.2 F 98.4 F Pulse Rate 65 66 Respiratory Rate 17 17 Blood Pressure 149/58 H 147/55 H 143/51 H Pulse Oximetry 98 99 Oxygen Delivery Oxygen Flow Rate 11/28/22 14:43 11/28/22 15:40 11/28/22 15:55 Temperature 98.1 F Pulse Rate 82 71 67 Respiratory Rate 16 16 1
--- NOTE | 2022-11-28 17:22 | PM.PNNEP ---
Progress Note: A&P Assessment and Plan (1) End stage renal disease: Code(s): N18.6 - End stage renal disease Status: Chronic Assessment and Plan: HD today normally does HD on Mondays and Fridays plan next treatment Sunday or Sunday if still hospitalized follow electrolytes, volume status, and clearance (2) Small bowel obstruction: Code(s): K56.609 - Unspecified intestinal obstruction, unspecified as to partial versus complete obstruction Status: Acute Assessment and Plan: as evidenced by history and imaging studies NG tube in place for decompression Surgery following continue current therapy (3) Essential hypertension: Code(s): I10 - Essential (primary) hypertension Status: Chronic Assessment and Plan: noted fluctuations since admission suspect pain issues playing a role along with inability to take po BP medications recommend PRN IV medications (i.e. hydralazine or labetalol) for now until she can resume home oral BP medications follow trend of hemodynamics (4) Mesenteric mass: Code(s): K63.89 - Other specified diseases of intestine Status: Acute Assessment and Plan: spiculated mass of the small bowel mesentery with calcification, concerning for possible carcinoid tumor Surgery following (5) Hemodialysis catheter malfunction: Code(s): T82.41XA - Breakdown (mechanical) of vascular dialysis catheter, initial encounter Status: Acute Assessment and Plan: new HD catheter in place for dialysis and being used currently (good blood flow noted) Will continue to follow. Subjective Date/time seen: 11/28/22 17:22 Interval history: Follow-up for end stage renal disease on hemodialysis. Unable to receive dialysis yesterday as her HD catheter was non-functional; new HD catheter placed in OR by Surgery earlier today with subsequent removal of previous HD catheter; tolerating dialysis at the time of my visit (seen on HD at 5:10PM); less abdominal pain at this time as well. Exam Narrative: General:thin WD/WN female in NAD Heart: normal S1 and S2; no rub Lungs: clear to auscultation Abdomen: soft, mild TTP, nondistended, positive bowel sounds Extremities: no cyanosis or clubbing; no edema Skin: warm and dry Objective Data Vital Signs Vital Signs: Vital Signs Temp Pulse Resp BP Pulse Ox O2 Del Method O2 Flow Rate 11/28/22 15:25 70 14 184/52 H 100 Room Air 11/28/22 15:10 71 16 173/60 H 100 Simple Face Mask 6 11/28/22 14:55 80 16 174/66 H 100 Simple Face Mask 6 11/28/22 16:10 68 16 184/49 H Nasal Cannula 2 11/28/22 15:55 67 16 168/59 H 100 Nasal Cannula 2 11/28/22 15:40 71 16 180/55 H 92 Room Air 11/28/22 14:43 98.1 F 82 16 169/66 H 100 Simple Face Mask 6 11/28/22 04:59 98.4 F 66 17 143/51 H 99 11/27/22 23:25 147/55 H 11/27/22 20:39 98.2 F 65 17 149/58 H 98 Intake/Output Intake/Output: Intake & Output 11/25/22 11/26/22 11/27/22 11/28/22 23:59 23:59 23:59 23:59 Intake Total 500 290 Output Total 400 1 400 Balance 100 -1 -110 Meds/Results Medications: Active Medications Generic Name Dose Route Start Last Admin Trade Name Freq PRN Reason Stop Dose Admin Enalaprilat 1.25 mg 11/27/22 00:00 11/28/22 12:30 Enalaprilat 1.25 Mg/Ml Vial IV PUSH 1.25 mg Q6HR ANDRÉS Administration Hydralazine HCl 10 mg 11/26/22 23:54 11/27/22 01:06 Hydralazine Hcl 20 Mg/Ml Vial IV PUSH 10 mg Q4H PRN Administration SBP greater than 160 Hydromorphone HCl 0.25 mg 11/28/22 13:03 Hydromorphone Hcl Inj (*Crx) 1 Mg/Ml Syr IV PUSH Q5M PRN Pain Albumin Human 50 mls @ 999 mls/hr 11/27/22 11:56 Albutein IVPB 12/27/22 11:55 Q10M PRN HYPOTENSION Sodium Chloride 1,000 mls @ 30 mls/hr 11/27/22 14:40 11/27/22 15:25 Normal Saline Iv IV CONT 30 mls/hr .Q2
[2022-11-28] MEDS: SODIUM CHLORIDE 0.9% IV 1,000 ML 30 ML IV CONT (20:06)
[2022-11-29] MEDS: LORazepam INJ (*CRX) 2 MG/ML VIAL 0.5 MG IV PUSH (00:21)
[2022-11-29 05:41] LABS: Hematocrit 33.7 % (37.0-47.0); Hemoglobin 10.6 g/dL (12.0-15.0); Mean Corpuscular HGB Conc 31.5 g/dl (32-36); Mean Corpuscular Hemoglobin 29.9 pg (26-34); Mean Corpuscular Volume 94.9 fl (80-100); Mean Platelet Volume 10.5 fl (7.4-10.4); Platelet Count Result 220 k/mm3 (150-375); Red Blood Count 3.55 M/mm3 (4.2-5.4); Red Cell Distribution Width 13.2 % (11.5-14.5); White Blood Count 11.8 K/mm3 (4.5-10.0)
[2022-11-29] MEDS: ENALAPRILAT 1.25 MG/ML VIAL IV PUSH ×2 (05:56→12:11)
[2022-11-29 05:59] LABS: Alanine Aminotransferase 11 U/L (6-35); Alkaline Phosphatase 60 U/L (38-126); Anion Gap 10 mmol/L (8-16); Aspartate Amino Transferase 20 U/L (14-36); Bilirubin,Total 0.9 mg/dL (0.2-1.3); Blood Urea Nitrogen 39 mg/dL (7-17); Carbon Dioxide 26 mmol/L (22-30); Chloride 100 mmol/L (98-107); Estimated CRCL calculation 9 ml/min; Estimated Glomerular Filt Rate 10; Glucose 89 mg/dL (65-110); Potassium 3.9 mmol/L (3.4-5.0); Sodium 136 mmol/L (137-145)
[2022-11-29 06:44] VITALS: BP 138/56; PULSE 77; RESP 20; TEMP 36.6; O2SAT 98
[2022-11-29] MEDS: PANTOPRAZOLE SODIUM IV 40 MG VIAL IV PUSH (09:08)
--- NOTE | 2022-11-29 10:22 | PM.IMPN ---
Progress Note: A&P Assessment and Plan (1) Small bowel obstruction: Code(s): K56.609 - Unspecified intestinal obstruction, unspecified as to partial versus complete obstruction Status: Acute Assessment and Plan: Pt does have history of SBO and has had multiple prior abdominal surgeries. 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 NG tube discontinued per surgery Advanced diet as tolerated per General surgery recommendations. After discussion with General surgery possible carcinoid tumor seen on CT scan is unlikely cause of small-bowel obstruction. Per General surgery this may also be scarring from previous surgery and would recommend repeat CT outpatient to ensure it is not increasing in size (2) Essential hypertension: Code(s): I10 - Essential (primary) hypertension Status: Chronic Assessment and Plan: BP has been poorly controlled Likely due to missed p.o. antihypertensives which were held while NPO appreciate nephrology recommendations for BP control 11/29/2022 patient is able to take clear liquids today and will resume home antihypertensives. Adjust as needed P.r.n. hydralazine as needed for systolic BP greater than 160 (3) End-stage renal disease on hemodialysis: Code(s): N18.6 - End stage renal disease; Z99.2 - Dependence on renal dialysis Status: Chronic Assessment and Plan: patient is maintained on hemodialysis on Mondays and Fridays appreciate nephrology consultation for dialysis management attempted dialysis on 11/27/2022 but not able to be completed due to dialysis catheter malfunction PermCath replaced by 11/28/22 and repeat chest x-ray without pneumothorax And next dialysis day is Sunday (4) Sterile pyuria: Code(s): R82.81 - Pyuria Status: Acute Assessment and Plan: The patient has pyuria but no bacteriuria. She does not have any significant symptoms of UTI. No antibiotics indicated. urine culture with mixed genital kraig not indicative of UTI Time Spent With Patient Time with patient: 25 - 35 minutes Subjective Date/time seen: 11/29/22 10:22 Interval history: Patient is a? 67-year-old female with a history of? ESRD on hemodialysis, peripheral artery disease, hypertension, and atrial fibrillation who is seen in follow-up for small bowel obstruction.??She complains of some dizziness this morning but reports she has had this for several days. She attributes dizziness to decreased activity since admission. No complaints of abdominal pain, nausea, vomiting. She has had loose stool since small-bowel follow-through was completed on 11/27 however she reports no stool today. She had clear liquid tray for lunch and has been tolerating so far. She is concerned about starting her aspirin. She does have some tenderness to her right upper chest/breast region following PermCath placement yesterday. No right upper extremity swelling or paresthesia per patient. Review of Systems Review of Systems: All systems reviewed & are unremarkable except as noted in HPI and below Exam Narrative: General: thin, well-appearing 67-year-old female, sitting up in bed, no acute distress Neuro: awake, alert and oriented x4, speech clear, no focal neuro deficits noted HEENMT: normocephalic, atraumatic, EOMI, sclerae anicteric, moist oral mucosa Respiratory: clear to auscultation bilaterally, nonlabored breathing Cardio: regular rate, regular rhythm with S1-S2 Ab
[2022-11-29 11:11] VITALS: BP 159/56; PULSE 64; RESP 18; TEMP 36.7; O2SAT 98
--- NOTE | 2022-11-29 12:13 | WPDANESPN ---
Anes - Prog Note Post-Op Date/Time: 11/29/22 12:13 Vital Signs: Last Vital Signs Temp 36.7 C 11/29/22 11:11 Pulse 64 11/29/22 11:11 Resp 18 11/29/22 11:11 BP 159/56 H 11/29/22 11:11 Pulse Ox 98 11/29/22 11:11 O2 Del Method Nasal Cannula 11/28/22 16:10 O2 Flow Rate 2 11/28/22 16:10 Pain Score (VAS): 0 I/O: Intake & Output 11/28/22 11/29/22 11/29/22 23:59 07:59 15:59 Intake Total 1050 440 480 Output Total 170 400 Balance 880 40 480 Laboratory Tests 11/29/22 05:15 11/29/22 05:15 11/29/22 05:15 WBC 11.8 H RBC 3.55 L Hgb 10.6 L Hct 33.7 L MCV 94.9 MCH 29.9 MCHC 31.5 L RDW 13.2 Plt Count 220 MPV 10.5 H Sodium 136 L Potassium 3.9 Chloride 100 Carbon Dioxide 26 Anion Gap 10 BUN 39 H D Creatinine 4.20 H Estim Creat Clear Calc 9 Estimated GFR 10 L Glucose 89 Calcium 9.0 Total Bilirubin 0.9 AST 20 ALT 11 Alkaline Phosphatase 60 Total Protein 7.0 Albumin 4.0 Microbiology 11/26/22 19:40 Urine Clean Catch Urine Culture - Final Patient Feedback: Patient satisfied with anesthetic care.
--- NOTE | 2022-11-29 13:42 | PM.PNNEP ---
Progress Note: A&P Assessment and Plan (1) End stage renal disease: Code(s): N18.6 - End stage renal disease Status: Chronic Assessment and Plan: HD yesterday normally does HD on Mondays and Fridays plan next treatment Sunday or Sunday if still hospitalized follow electrolytes, volume status, and clearance (2) Small bowel obstruction: Code(s): K56.609 - Unspecified intestinal obstruction, unspecified as to partial versus complete obstruction Status: Acute Assessment and Plan: as evidenced by history and imaging studies s/p NG tube placement for decompression Surgery following continue current therapy (3) Essential hypertension: Code(s): I10 - Essential (primary) hypertension Status: Chronic Assessment and Plan: noted fluctuations since admission suspect pain issues playing a role along with inability to take po BP medications recommend PRN IV medications (i.e. hydralazine or labetalol) for now until she can resume home oral BP medications follow trend of hemodynamics (4) Mesenteric mass: Code(s): K63.89 - Other specified diseases of intestine Status: Acute Assessment and Plan: spiculated mass of the small bowel mesentery with calcification, concerning for possible carcinoid tumor Surgery recommnedations noted (5) Hemodialysis catheter malfunction: Code(s): T82.41XA - Breakdown (mechanical) of vascular dialysis catheter, initial encounter Status: Acute Assessment and Plan: new HD catheter in place for dialysis Will continue to follow. Subjective Date/time seen: 11/29/22 13:42 Interval history: Follow-up for end stage renal disease on hemodialysis. Tolerated dialysis treatment yesterday without any issue or problems following new HD catheter placement yesterday afternoon; small bowel obstruction seems to be slowly resolving; mild discomfort at insertion site of new HD catheter; no acute distress at this time. Exam Narrative: General:thin WD/WN female in NAD Heart: normal S1 and S2; no rub Lungs: clear to auscultation Abdomen: soft, mild TTP, nondistended, positive bowel sounds Extremities: no cyanosis or clubbing; no edema Skin: warm and intact Objective Data Vital Signs Vital Signs: Vital Signs Temp Pulse Resp BP Pulse Ox 11/29/22 13:40 97.4 F L 61 16 176/47 H 98 11/29/22 11:11 98.0 F 64 18 159/56 H 98 11/29/22 06:44 97.8 F 77 20 138/56 L 98 11/28/22 23:49 159/42 H 11/28/22 22:52 97.3 F L 70 20 147/55 H 99 11/28/22 19:38 98.0 F 70 18 182/70 H 11/28/22 19:25 67 177/75 H 11/28/22 19:20 73 186/81 H 11/28/22 19:00 74 177/92 H 11/28/22 18:40 68 168/78 H 11/28/22 18:20 79 157/83 H 11/28/22 18:00 82 182/97 H 11/28/22 17:40 76 166/88 H Intake/Output Intake/Output: Intake & Output 11/26/22 11/27/22 11/28/22 11/29/22 23:59 23:59 23:59 23:59 Intake Total 500 1290 1400 Output Total 400 1 570 400 Balance 100 -1 720 1000 Meds/Results Medications: Active Medications Generic Name Dose Route Start Last Admin Trade Name Chavoq PRN Reason Stop Dose Admin Aspirin 325 mg 11/30/22 09:00 Aspirin 325 Mg Enteric Tablet PO QAM ANDRÉS Carvedilol 6.25 mg 11/29/22 17:00 11/29/22 17:22 Carvedilol 6.25 Mg Tablet PO 6.25 mg BID ANDRÉS Administration Clonazepam 1 mg 11/29/22 13:06 Clonazepam (*Crx) 0.5 Mg Tablet PO DAILY PRN Anxiety Furosemide 40 mg 11/29/22 17:00 11/29/22 17:23 Furosemide 40 Mg Tablet PO 40 mg BID ANDRÉS Administration Gabapentin 300 mg 11/29/22 21:00 Gabapentin 300 Mg Capsule PO HS ANDRÉS Hydralazine HCl 10 mg 11/26/22 23:54 11/27/22 01:06 Hydralazine Hcl 20 Mg/Ml Vial IV PUSH 10 mg Q4H PRN Administration SBP greater than 160 Hydralazine HCl 25 mg 11/29/22 17:00 11/29/22 17:23 Hydralazine Hcl 2
[2022-11-29 13:57] VITALS: BP 176/47; PULSE 61; RESP 16; TEMP 36.3; O2SAT 98
--- NOTE | 2022-11-29 14:25 | PM.PNGS ---
Progress Note: A&P Assessment and Plan (1) Small bowel obstruction: Code(s): K56.609 - Unspecified intestinal obstruction, unspecified as to partial versus complete obstruction Status: Acute Assessment and Plan: SBFT showed contrast moving through to the colon in under 2 hours, no high grade obstruction. Bowels are functioning and she continues to clinically improve. NG removed and okay to advance diet as tolerated. No indication for surgical intervention. Will sign off at this time. Call with any surgical questions or concerns. (2) Mesenteric mass: Code(s): K63.89 - Other specified diseases of intestine Status: Acute Assessment and Plan: CT suggested a possible mesenteric mass, which is very small and is not the cause of her small bowel obstruction. Radiologist suggested possible carcinoid but this could also be some scar tissue from previous surgeries or a benign finding. No indication for surgical intervention or follow-up at this time. If felt necessary, could recommend outpatient CT in 6 months to re-evaluate. (3) Hemodialysis catheter malfunction: Code(s): T82.41XA - Breakdown (mechanical) of vascular dialysis catheter, initial encounter Status: Acute Assessment and Plan: Placement of right subclavian tunneled dialysis catheter yesterday. Doing well today and able to be dialyzed last night without issues. Call with any issues. (4) End-stage renal disease on hemodialysis: Code(s): N18.6 - End stage renal disease; Z99.2 - Dependence on renal dialysis Status: Acute Plan I have discussed the patient's case and plan of care with Dr. Sal. Subjective Subjective Date/Time Seen: 11/29/22 08:45 Patient reports: no new complaints, feels better, flatus, bowel movement and afebrile Interval history: Patient seen this morning. She still has her NG in place. Per nursing, when they attempted to remove it she requested it be left in overnight as she was scared it would have to be put back in. Her NG has been clamped overnight with no nausea, vomiting, bloating, or abdominal pain. She is passing flatus today and had multiple liquid BMs yesterday. I removed her NG while in the room this morning. No other complaints at this time. Review of Systems Review of Systems: ROS unchanged Exam Const: General: comfortable, no acute distress and awake Orientation/consciousness: patient oriented x3 Chest: Other: Right subclavian tunneled cath with dressing dry and intact, no swelling Resp: Effort & Inspection: normal respiratory effort Auscultation: clear to auscultation bilaterally GI: Inspection: non-distended GI Palp: Yes Soft to palpation, No Tenderness to palpation present (GI), No Guarding due to palpation present (GI) and No Rebound tenderness present Auscultation: normal bowel sounds Extrem: General: normal to inspection and no edema Psych: Mental Status: mental status grossly normal Insight: Good insight present (Psych) Objective Data Vital Signs Vital Signs: Vital Signs - 24 hr 11/28/22 14:43 11/28/22 15:40 11/28/22 15:55 Temperature 98.1 F Pulse Rate 82 71 67 Respiratory Rate 16 16 16 Blood Pressure 169/66 H 180/55 H 168/59 H Pulse Oximetry 100 92 100 Oxygen Delivery Simple Face Mask Room Air Nasal Cannula Oxygen Flow Rate 6 2 11/28/22 16:10 11/28/22 14:55 11/28/22 15:10 Temperature Pulse Rate 68 80 71 Respiratory Rate 16 16 16 Blood Pressure 184/49 H 174/66 H 173/60 H Pulse Oximetry 100 100 Oxygen Delivery Nasal Cannula Simple Face Mask Simple Face Mask Oxygen Flow Rate 2 6 6 11/28/22 15:25 11/28/22 16:28 11/28/22 16:43 Temperature 98.6 F Pulse Rate 70 64 65 Respiratory Rate 14 18 Blood Pressure 184/52 H 198/73 H 171/78 H Pulse Oximetry 100 Oxygen Delivery Room Air Oxygen Flow Rate 11/28/22 17:00 11/28/22 17:20 11/28/22 17:40 Temperature Pulse Rate 70 71 76 Respiratory Rate Blood Pressur
[2022-11-29 17:22] VITALS: PULSE 81
[2022-11-29] MEDS: carvediloL 6.25 MG TABLET PO (17:22)
[2022-11-29] MEDS: FUROSEMIDE 40 MG TABLET PO (17:23)
[2022-11-29] MEDS: hydrALAZINE HCL 25 MG TABLET PO (17:23)
[2022-11-29] MEDS: GABAPENTIN 300 MG CAPSULE PO (20:01)
[2022-11-29 21:32] VITALS: BP 164/32; PULSE 54; RESP 20; TEMP 37; O2SAT 98
[2022-11-29] MEDS: clonazePAM (*CRX) 0.5 MG TABLET 1 MG PO (21:32)
[2022-11-30] VITALS (7 sets, daily range): BP systolic 145–180; BP diastolic 43–52; PULSE 64–70; RESP 17–20; TEMP 36.4–37.3; O2SAT 96
[2022-11-30] MEDS: hydrALAZINE HCL 20 MG/ML VIAL 10 MG IV PUSH (05:09)
[2022-11-30 05:57] LABS: Basophils Absolute Auto 0.1 K/mm3 (0.0-0.1); Basophils Percent Auto 0.6 % (0.2-1.2); Eosinophils Absolute Auto 0.5 K/mm3 (0-0.3); Eosinophils Percent Auto 5.9 % (0-4.4); Hematocrit 30.8 % (37.0-47.0); Hemoglobin 9.8 g/dL (12.0-15.0); Immature Granulocyte Absolute 0.04 K/mm3 (0.00-0.031); Immature Granulocyte Percent A 0.5 % (0-0.5); Lymphocytes Absolute Auto 1.58 K/mm3 (0.9-3.2); Lymphocytes Percent Auto 18.5 % (18.3-44.2); Mean Corpuscular HGB Conc 31.8 g/dl (32-36); Mean Corpuscular Hemoglobin 29.6 pg (26-34); Mean Corpuscular Volume 93.1 fl (80-100); Mean Platelet Volume 10.7 fl (7.4-10.4); Monocytes Percent Auto 11.4 % (2.6-8.5); Neutrophils Absolute Auto 5.4 K/mm3 (1.3-6.7); Neutrophils Percent Auto 63.1 % (45.5-73.1); Platelet Count Result 182 k/mm3 (150-375); Red Blood Count 3.31 M/mm3 (4.2-5.4); Red Cell Distribution Width 12.9 % (11.5-14.5); White Blood Count 8.5 K/mm3 (4.5-10.0)
[2022-11-30 06:07] LABS: Alanine Aminotransferase 11 U/L (6-35); Alkaline Phosphatase 47 U/L (38-126); Anion Gap 11 mmol/L (8-16); Aspartate Amino Transferase 23 U/L (14-36); Bilirubin,Total 0.7 mg/dL (0.2-1.3); Blood Urea Nitrogen 54 mg/dL (7-17); Calcium 9.1 mg/dL (8.4-10.2); Carbon Dioxide 25 mmol/L (22-30); Chloride 100 mmol/L (98-107); Estimated CRCL calculation 8 ml/min; Estimated Glomerular Filt Rate 9; Glucose 92 mg/dL (65-110); Potassium 3.9 mmol/L (3.4-5.0); Sodium 136 mmol/L (137-145)
[2022-11-30] MEDS: PANTOPRAZOLE SODIUM IV 40 MG VIAL IV PUSH (08:14)
--- NOTE | 2022-11-30 08:49 | PM.IMPN ---
Progress Note: A&P Assessment and Plan (1) Small bowel obstruction: Code(s): K56.609 - Unspecified intestinal obstruction, unspecified as to partial versus complete obstruction Status: Acute Assessment and Plan: Pt does have history of SBO and has had multiple prior abdominal surgeries. 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 NG tube discontinued per surgery Advanced diet as tolerated per General surgery recommendations. After discussion with General surgery possible carcinoid tumor seen on CT scan is unlikely cause of small-bowel obstruction. Per General surgery this may also be scarring from previous surgery and would recommend repeat CT outpatient to ensure it is not increasing in size (2) Essential hypertension: Code(s): I10 - Essential (primary) hypertension Status: Chronic Assessment and Plan: BP has been poorly controlled Likely due to missed p.o. antihypertensives which were held while NPO appreciate nephrology recommendations for BP control 11/29/2022 patient is able to take clear liquids today and will resume home antihypertensives. Adjust as needed P.r.n. hydralazine as needed for systolic BP greater than 160 (3) End-stage renal disease on hemodialysis: Code(s): N18.6 - End stage renal disease; Z99.2 - Dependence on renal dialysis Status: Chronic Assessment and Plan: patient is maintained on hemodialysis on Mondays and Fridays appreciate nephrology consultation for dialysis management attempted dialysis on 11/27/2022 but not able to be completed due to dialysis catheter malfunction PermCath replaced by 11/28/22 and repeat chest x-ray without pneumothorax And next dialysis day is Sunday (4) Sterile pyuria: Code(s): R82.81 - Pyuria Status: Acute Assessment and Plan: The patient has pyuria but no bacteriuria. She does not have any significant symptoms of UTI. No antibiotics indicated. urine culture with mixed genital kraig not indicative of UTI Subjective Date/time seen: 11/30/22 08:49 Exam Narrative: General: thin, well-appearing 67-year-old female, sitting up in bed, no acute distress Neuro: awake, alert and oriented x4, speech clear, no focal neuro deficits noted HEENMT: normocephalic, atraumatic, EOMI, sclerae anicteric, moist oral mucosa Respiratory: clear to auscultation bilaterally, nonlabored breathing Cardio: regular rate, regular rhythm with S1-S2 Abdomen: nondistended, normoactive bowel sounds, soft, nontender to palpation Extremities: no edema, erythema, or tenderness to palpation, DP pulses 2+ bilaterally Skin: no rashes or lesions, warm and dry. Right upper chest PermCath with some ecchymosis to upper border. No discharge noted Psych: appropriate mood and affect Objective Data Vital Signs Vital Signs: Vital Signs - 24 hr 11/29/22 11:11 11/29/22 13:57 11/29/22 17:22 Temperature 98.0 F 97.4 F L Pulse Rate 64 61 81 Respiratory Rate 18 16 Blood Pressure 159/56 H 176/47 H Pulse Oximetry 98 98 11/29/22 21:32 11/30/22 05:04 11/30/22 05:05 Temperature 98.6 F 97.6 F Pulse Rate 54 L 64 Respiratory Rate 20 20 Blood Pressure 164/32 H 168/47 H 177/43 H Pulse Oximetry 98 96 11/30/22 05:09 11/30/22 05:44 11/30/22 08:10 Temperature Pulse Rate 67 Respiratory Rate Blood Pressure 180/50 H 152/50 H 145/46 H Pulse Oximetry Intake/Output Intake/Output: Intake & Output 11/27/22 0
[2022-11-30] MEDS: ASPIRIN 325 MG ENTERIC TABLET PO (10:21)
[2022-11-30] MEDS: carvediloL 6.25 MG TABLET PO (10:22)
[2022-11-30] MEDS: FUROSEMIDE 40 MG TABLET PO (10:23)
[2022-11-30] MEDS: hydrALAZINE HCL 25 MG TABLET PO (10:23)
--- NOTE | 2022-11-30 11:37 | W.PM.PROC2 ---
Procedure Note - Detailed Date of Procedure 11/30/22 Pre-op Diagnosis Malfunctioning left internal jugular vein tunneled hemodialysis catheter, End-stage renal disease. Post-op Diagnosis Same Procedure Performed 1.) Placement of right subclavian vein tunneled Perma catheter. 2.) Removal of left internal jugular vein tunneled Perma catheter Surgeon Abdifatah Sal MD [employer] Gat[employer] Beverley Ontiveros, FACILITIES ENGINEER Anesthesia MAC and Local Indications The patient has end-stage renal disease and has had multiple tunneled Perma catheters the bilateral upper central veins in the past. Her last primary catheter placed about 4 to 5 months ago and was placed in the left internal jugular vein. It is now malfunctioning and nonfunctional. Patient presents now for placement of a new primary catheter for hemodialysis and removal of the old Perma catheter that is now malfunctioning. Findings None. Description of Procedure After informed consent was obtained the patient was brought to the operating room she was placed supine position and then IV sedation was administered by anesthesia. The bilateral upper anterior neck and chest was then prepped and draped in usual sterile fashion including the exit site of the existing nonfunctioning Perma catheter in the left upper anterior chest region. Time-out was then performed correctly identifying the patient as well as procedure to be performed. She was given 500mg IV vancomycin as a 1 time dose perioperatively. I 1st started by trying to get access into the right-sided central veins. Two attempts were made to try to access the right internal jugular vein without success. I then switched to trying to access the right subclavian vein and on the 2nd pass and was able to cannulate the right subclavian vein with return of dark venous appearing blood. I advanced the guidewire through the needle into the right subclavian vein into the right atrium of the heart. Intraoperative fluoroscopy views confirmed the correct location of the tip of the guidewire. I then proceeded to remove the left internal jugular vein Perma catheter. I palpated the cuff in the subcutaneous tissues and anesthetized the area with 1% lidocaine mixed with 0.5% Marcaine. The mid transverse incision over the calf and dissected down through the subcutaneous tissues and then divided the scar tissue around the cuff to free the catheter. With gentle traction on the catheter distal to the cuff I removed the catheter from the left internal jugular vein. Pressure was held in the area of the insertion site of the catheter into the vein for about 5minutes to achieve hemostasis. I then removed the remaining portion of the malfunction catheter from the subcutaneous tissues discarded the catheter. I then irrigated the incision with sterile saline solution hemostasis excellent. I then closed the incision utilizing interrupted 3-0 Vicryl sutures in the subcutaneous tissues. The skin edges were approximated using a running subcuticular 4 Monocryl suture. The old exit site the catheter was left open to drain spontaneously and to close by secondary intention. I then returned to placing the right-sided new tunneled Perma catheter. The Perma catheter was measured and I made a small stab incision in the right upper anterior chest region after anesthetizing the area stable local anesthetic mixture. I then tunneled the primary catheter to the insertion site of the guidewire. The cuff was located in the mid point between the insertion site of the guidewire and the skin opening where the catheter exited. I then serially advanced dilators over the guidewire to enlarge the anatomy in the right subclavian vein. Lastly the dilator and breakaway sheath was advanced over the guidewire and the guidewire and dilator were removed leaving the sheath in place. I then advanced the rim catheter through the sheath into the right subclavian vein and subsequently down into the superior vena cava.
--- NOTE | 2022-11-30 16:13 | P.DS_ITS ---
DS: Admitting Diagnosis Discharge Date 11/30/22 Admitting Diagnosis Small bowel obstruction Essential (primary) hypertension ESRD on HD Pyuria DS: Discharge Diagnosis Discharge Diagnosis (1) Small bowel obstruction: Code(s): K56.609 - Unspecified intestinal obstruction, unspecified as to partial versus complete obstruction Status: Acute Assessment and Plan: Pt has history of SBO and has had multiple prior abdominal surgeries. 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 Patient treated conservatively. * ?NG decompression initiated and completed 11/29/2022 * ?Small-bowel follow-through completed on 11/27/2022 nd showed dilated small bowel with normal transit time of contrast into the colon consistent with partial SBO * 11/29/2022 patient advanced to clear liquid diet.? NG tube discontinued per surgery * Advanced diet as tolerated per General surgery recommendations.? * 11/30/22 Patient tolerating regular diet and having bowel movements following small bowel follow-through, as well as flatus. (2) Essential hypertension: Code(s): I10 - Essential (primary) hypertension Status: Chronic Assessment and Plan: BP has been poorly controlled * Likely due to missed p.o. antihypertensives which were held while NPO * nephrology following. * 11/29/2022 patient is able to take clear liquids and home antihypertensives resumed.? Adjust as needed * P.r.n. hydralazine as needed for systolic BP greater than 160 * 11/30/22 BP improved. (3) Hemodialysis catheter malfunction: Qualifiers: Encounter type: initial encounter Qualified Code(s): T82.41XA - Breakdown (mechanical) of vascular dialysis catheter, initial encounter Code(s): T82.41XA - Breakdown (mechanical) of vascular dialysis catheter, initial encounter Status: Acute Assessment and Plan: Permacath replaced 11/28/22 due to poor functioning line during dialysis Sunday11/27/22. Old left IJ tunneled catheter removed. (4) End-stage renal disease on hemodialysis: Code(s): N18.6 - End stage renal disease; Z99.2 - Dependence on renal dialysis Status: Chronic Assessment and Plan: ?patient is on hemodialysis on Mondays and Fridays * nephrology consulted for dialysis management * attempted dialysis on 11/27/2022 but not able to be completed due to dialysis catheter malfunction * PermCath replaced by 11/28/22 as detailed above * 11/29/22 chest x-ray for c/o right lower breast pain without pneumothorax * And next dialysis day is Sunday as previous scheduled at outpatient HD facility. (5) Mesenteric mass: Code(s): K63.89 - Other specified diseases of intestine Status: Acute Assessment and Plan: Possible small bowel mesenteric mass on CT scan. * After discussion with General surgery possible carcinoid tumor seen on CT scan is unlikely cause of small-bowel obstruction.? * Per General surgery this may also be scarring from previous surgery and would recommend repeat CT outpatient to ensure it is not increasing in size * Discussed with patient who reports understanding.? * Repeat CT scan abd/pelvis in 6 months (6) Sterile pyuria: Code(s): R82.81 - Pyuria Status: Acute Assessment and Plan: The patient has pyuria but no bacteriuria.? She does not have any significant symptoms of UTI.? * No antibiotics indicated. * urine culture wit
--- NOTE | 2022-11-30 16:13 | PM.DS ---
DS: Admitting Diagnosis Discharge Date 11/30/22 Admitting Diagnosis Small bowel obstruction Essential (primary) hypertension ESRD on HD Pyuria DS: Discharge Diagnosis Discharge Diagnosis (1) Small bowel obstruction: Code(s): K56.609 - Unspecified intestinal obstruction, unspecified as to partial versus complete obstruction Status: Acute Assessment and Plan: Pt has history of SBO and has had multiple prior abdominal surgeries. 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 Patient treated conservatively. ?NG decompression initiated and completed 11/29/2022 ?Small-bowel follow-through completed on 11/27/2022 nd showed dilated small bowel with normal transit time of contrast into the colon consistent with partial SBO 11/29/2022 patient advanced to clear liquid diet.? NG tube discontinued per surgery Advanced diet as tolerated per General surgery recommendations.? 11/30/22 Patient tolerating regular diet and having bowel movements following small bowel follow-through, as well as flatus. (2) Essential hypertension: Code(s): I10 - Essential (primary) hypertension Status: Chronic Assessment and Plan: BP has been poorly controlled Likely due to missed p.o. antihypertensives which were held while NPO nephrology following. 11/29/2022 patient is able to take clear liquids and home antihypertensives resumed.? Adjust as needed P.r.n. hydralazine as needed for systolic BP greater than 160 11/30/22 BP improved. (3) Hemodialysis catheter malfunction: Qualifiers: Encounter type: initial encounter Qualified Code(s): T82.41XA - Breakdown (mechanical) of vascular dialysis catheter, initial encounter Code(s): T82.41XA - Breakdown (mechanical) of vascular dialysis catheter, initial encounter Status: Acute Assessment and Plan: Permacath replaced 11/28/22 due to poor functioning line during dialysis Sunday11/27/22. Old left IJ tunneled catheter removed. (4) End-stage renal disease on hemodialysis: Code(s): N18.6 - End stage renal disease; Z99.2 - Dependence on renal dialysis Status: Chronic Assessment and Plan: ?patient is on hemodialysis on Mondays and Fridays nephrology consulted for dialysis management attempted dialysis on 11/27/2022 but not able to be completed due to dialysis catheter malfunction PermCath replaced by 11/28/22 as detailed above 11/29/22 chest x-ray for c/o right lower breast pain without pneumothorax And next dialysis day is Sunday as previous scheduled at outpatient HD facility. (5) Mesenteric mass: Code(s): K63.89 - Other specified diseases of intestine Status: Acute Assessment and Plan: Possible small bowel mesenteric mass on CT scan. After discussion with General surgery possible carcinoid tumor seen on CT scan is unlikely cause of small-bowel obstruction.? Per General surgery this may also be scarring from previous surgery and would recommend repeat CT outpatient to ensure it is not increasing in size Discussed with patient who reports understanding.? Repeat CT scan abd/pelvis in 6 months (6) Sterile pyuria: Code(s): R82.81 - Pyuria Status: Acute Assessment and Plan: The patient has pyuria but no bacteriuria.? She does not have any significant symptoms of UTI.? No antibiotics indicated. urine culture with mixed genital kraig not indicative of UTI DS: Summary Hospital Course Reason for hospitalization: cc: Pain like when I have my bowel obstructions Hospital Course: Patient is a 67-year-old female with history of multiple abdominal surgeries, coronary disease status post four-vessel CABG, aortic aneurysm repair, peripheral vascular disease, COPD, essential hypertension, hypothyroidism and end-stage renal disease
== END 2022-11-30 13:32 | disposition home or self-care (01) | DRG 698 ==
LOC: ANHED 20:48 → ANH2MED 21:33
PROVIDERS: Emergency Medicine; Internal Medicine Nephrology; Physician Assistant; Surgery; Admitting Provider Internal Medicine; Emergency Provider Physician Assistant; Visit Provider Nurse Practitioner Family
PROC: 05H533Z Insertion of Infusion Device into Right Subclavian Vein, Percutaneous Approach (ICD-10-PCS; CPT 36908; principal; 2022-11-28 20:30)
DX: T82.41XA Breakdown (mechanical) of vascular dialysis catheter, initial encounter (principal); N18.6 End stage renal disease; K56.600 Partial intestinal obstruction, unspecified as to cause; I12.0 Hypertensive chronic kidney disease with stage 5 chronic kidney disease or end stage renal disease; E03.9 Hypothyroidism, unspecified; I73.9 Peripheral vascular disease, unspecified; I48.91 Unspecified atrial fibrillation; I25.10 Atherosclerotic heart disease of native coronary artery without angina pectoris; J44.9 Chronic obstructive pulmonary disease, unspecified; K63.89 Other specified diseases of intestine; R82.81 Pyuria; Z90.49 Acquired absence of other specified parts of digestive tract; Z99.2 Dependence on renal dialysis; Z79.82 Long term (current) use of aspirin; Z96.0 Presence of urogenital implants; Z87.891 Personal history of nicotine dependence; Z95.1 Presence of aortocoronary bypass graft; Z95.828 Presence of other vascular implants and grafts
CPT/HCPCS: 36415; 71045; 74176; 74250; 77001; 80048; 80053; 80074; 81001; 83605; 83690; 83735; 84100; 84443; 85025; 85027; 86706; 87086; 87088; 87340; 96361; 96374; 96375; 97165; 97530; 97535; 99285; A9270; C1750; C9113; G0257; G0378; J0360; J0696; J1644; J2060; J2250; J2370; J2405; J2704; J3370; J7030; J7040

== ENCOUNTER 2023-06-25 05:55 | Inpatient (IN) | payer MEDICARE, OTHER, SELFPAY ==
[2023-06-25] VITALS (34 sets, daily range): BP systolic 117–187; BP diastolic 52–66; PULSE 48–69; RESP 12–21; TEMP 36.1–37.2; O2SAT 93–100; BMI 26.5
--- NOTE | ~2023-06-25 | CT_ITS ---
Non-contrast CT scan of the Abdomen and Pelvis Clinical indication: Abdominal pain Technique: 2.5 mm axial scans were obtained through the abdomen and pelvis without intravenous or or al contrast. Dose reduction technique was used on this scan by utilizing automated exposure control a nd iterative reconstruction technique. The dose-length product (DLP) was 441.69 mGy-cm. COMPARISON: 11/26/2022 Findings: Images through the lung bases reveal right basilar scarring and right basilar calcified pl eural plaques. There is extensive atherosclerotic calcification of the aortic root. Right ureteral stent in place, with minimal fullness of the right renal collecting system. No stone i s seen on either side. No left hydronephrosis. The liver, spleen, pancreas, and adrenals appear normal. Cholecystectomy clips are present. There are atherosclerotic calcifications of the aorta, with infrarenal abdominal aortic aneurysm measuring up to 3.7 cm in diameter. There are multiple mildly distended proximal small bowel loops. Distal small bowel is decompressed. P robable small bilateral central mesenteric mass present (axial images 129-135). Evidence of probable prior herniorrhaphy. Images through the pelvis were performed. There is no evidence of ascites or lymphadenopathy. Femoral -femoral bypass present. Urinary bladder unremarkable aside from the distal portion of ureteral stent in place. No adnexal mass evident. Impression: Findings most consistent with small bowel obstruction. Suspected small central mesenteric mass presen t, unchanged, which could reflect carcinoid. Please see details above. Right ureteral stent in place. Reviewed, dictated and finalized at [facility]. [place] OPERATOR Impression: Findings most consistent with small bowel obstruction. Suspected small central mesenteric mass present, unchanged, which could reflect carcinoid. Please see d etails above. Right ureteral stent in place.
--- NOTE | ~2023-06-25 | XR_ITS ---
XR abdomen/kub 1V 06/30/2023 20:32 Indication: Abdominal pain and distention Procedure: KUB Comparison: 06/26/2023 Findings: There is a large amount of gas throughout the small bowel and colon, likely ileus. There ar e changes of anterior abdominal wall hernia repair. Right internal ureteral stent in expected positio n. Impression: 1: Persistent diffusely gas-filled distended small bowel and colon, likely ileus. Reviewed, dictated and finalized at location A. [employer] Impression: 1: Persistent diffusely gas-filled distended small bowel and colon, likely ileu s.
--- NOTE | ~2023-06-25 | XR_ITS ---
Supine and upright views of the abdomen Clinical history: Small bowel obstruction COMPARISON: 11/27/2022 Findings: Probable mildly distended small bowel loops are present. No definite free air. Right ureter al stent in place. There is evidence of prior herniorrhaphy. Osseous structures are intact. Impression: Probable mildly distended small bowel loops. Correlate for small bowel obstruction. Right ureteral stent. Reviewed, dictated and finalized at location . SIVE MIXER Impression: Probable mildly distended small bowel loops. Correlate for small bowel obstruct ion. Right ureteral stent.
--- NOTE | ~2023-06-25 | CT_ITS ---
EXAMINATION: CT abdomen pelvis wo con DATE: 06/29/2023 13:10 INDICATION: Small bowel obstruction. TECHNIQUE: Computed tomography (CT) of the abdomen and pelvis was performed without intravenous contr ast. The dose-length product was 469.47 mGy-cm. Automated exposure control and iterative reconstructi on technique were employed. COMPARISON: CT dated 06/25/2023. FINDINGS: Persistent dilated small bowel with air-fluid levels. No definite transition site identifie d. The colon is decompressed. There is a right internal ureteral stent. There is diffuse atherosclero sis with ectasia of the abdominal aorta measuring up to 2.8 cm greatest sagittal dimension. There is a right common iliac artery stent. There is a femoral-femoral bypass graft. Status post median sterno antonietta. There are changes of ventral abdominal wall hernia mesh repair. There are calcified pleural plaques, consistent with priors asbestos exposure. There is a right inter nal ureteral stent in expected position. There is bilateral renal atrophy. There is an irregular shap ed mesenteric mass with spiculations, images 134-136, suspicious for carcinoid tumor. No acute osseou s abnormality. IMPRESSION: 1. Diffusely dilated small bowel with air-fluid levels which may reflect obstruction or ileus. No tra nsition site is identified. 2: Irregular shaped 1.2 cm mesenteric mass with spiculations, suspicious for carcinoid tumor. 3: Calcified pleural plaques, consistent with prior asbestos exposure. Reviewed, dictated and finalized at location B. STEWARD IMPRESSION: 1. Diffusely dilated small bowel with air-fluid levels which may reflect obstru ction or ileus. No transition site is identified. 2: Irregular shaped 1.2 cm mesenteric mass with spiculations, suspicious for ca rcinoid tumor. 3: Calcified pleural plaques, consistent with prior asbestos exposure.
--- NOTE | ~2023-06-25 | XR_ITS ---
EXAMINATION: XR abdomen gastric tube insert DATE: 06/25/2023 09:04 INDICATION: Nasogastric tube placement. TECHNIQUE: An upright view of the abdomen was obtained. COMPARISON: CT abdomen and pelvis 06/25/2023 FINDINGS: There are multiple dilated loops of small bowel. The lower abdomen is excluded. There are c hanges of ventral hernia repair. There is a right internal ureteral stent in expected position. The n asogastric tube tip is in the stomach. Median sternotomy wires and mediastinal surgical clips are see n, likely from prior coronary artery bypass grafting. There is a central venous catheter with tip in right atrium. Surgical clips in the right upper quadrant are likely from cholecystectomy. IMPRESSION: 1. Nasogastric tube tip in the stomach. 2. Dilated small bowel, consistent with small bowel obstruction. Reviewed, dictated and finalized at location A. DIMPLING MACHINE OPERATOR
--- NOTE | ~2023-06-25 | XR_ITS ---
EXAMINATION: XR sm bowel follow through WS DATE: 07/01/2023 13:20 INDICATION: Small bowel obstruction TECHNIQUE: Experimental Preflight Mechanic radiograph(s) of the abdomen was/were obtained. Water-soluble oral contrast was admi nistered through the patient's existing nasogastric tube, and sequential radiographs of the abdomen w ere obtained until oral contrast was noted to be in the proximal colon. COMPARISON: CT dated 06/29/2023 FINDINGS: Experimental Preflight Mechanic image demonstrates nasogastric tube in expected position with distal tip in proximal side port in the stomach. There are multiple gas-filled but nondilated loops of bowel throughout the abdomen an d pelvis. Cholecystectomy clips in right upper quadrant. There are few additional surgical clips scat tered throughout the central abdomen. Change of prior infraumbilical ventral hernia mesh repair and r ight common iliac artery stenting. Right internal ureteral stent in expected position with loops form ed over the right renal pelvis and bladder. Transit time from the stomach to proximal colon was appro ximately 1 hour. There is normal caliber and mucosal fold pattern throughout the small bowel. Calcifi cations projecting over the central abdomen correspond to the heterotopic ossifications along the ant erior abdominal wall on prior CT. IMPRESSION: 1. Postoperative changes detailed above. No bowel obstruction. Reviewed, dictated and finalized at location A. ING PANTOGRAPH OPERATOR
--- NOTE | ~2023-06-25 | XR_ITS ---
XR abdomen gastric tube insert INDICATION: Evaluate NG tube position. TECHNIQUE: Limited KUB perform for evaluating NG tube . COMPARISON: 06/25/2023 FINDINGS: NG tube tip in the stomach. Visualized bowel gas pattern is nonspecific. IMPRESSION: 1: NG tube tip in the stomach. Reviewed, dictated and finalized at location A. DER AND CHIEF EXECUTIVE OFFICER
[2023-06-25 06:16] LABS: Basophils Absolute Auto 0.1 K/mm3 (0.0-0.1); Basophils Percent Auto 0.7 % (0.2-1.2); Eosinophils Absolute Auto 0.1 K/mm3 (0-0.3); Eosinophils Percent Auto 0.8 % (0-4.4); Hematocrit 42.2 % (37.0-47.0); Hemoglobin 13.8 g/dL (12.0-15.0); Immature Granulocyte Percent A 0.6 % (0-0.5); Lymphocytes Absolute Auto 1.19 K/mm3 (0.9-3.2); Lymphocytes Percent Auto 7.1 % (18.3-44.2); Mean Corpuscular HGB Conc 32.7 g/dl (32-36); Mean Corpuscular Hemoglobin 29.9 pg (26-34); Mean Corpuscular Volume 91.3 fl (80-100); Mean Platelet Volume 10.5 fl (7.4-10.4); Monocytes Absolute Auto 1.2 K/mm3 (0.1-0.6); Monocytes Percent Auto 7.2 % (2.6-8.5); Neutrophils Absolute Auto 14.1 K/mm3 (1.3-6.7); Neutrophils Percent Auto 83.6 % (45.5-73.1); Platelet Count Result 311 k/mm3 (150-375); Red Blood Count 4.62 M/mm3 (4.2-5.4); Red Cell Distribution Width 13.4 % (11.5-14.5); White Blood Count 16.9 K/mm3 (4.5-10.0)
[2023-06-25 06:26] LABS: Alanine Aminotransferase 14 U/L (6-35); Albumin Level 4.9 g/dL (3.5-5.1); Alkaline Phosphatase 80 U/L (38-126); Anion Gap 16 mmol/L (8-16); Aspartate Amino Transferase 26 U/L (14-36); Bilirubin,Total 0.8 mg/dL (0.2-1.3); Blood Urea Nitrogen 42 mg/dL (7-17); Carbon Dioxide 25 mmol/L (22-30); Chloride 94 mmol/L (98-107); Estimated CRCL calculation 11 ml/min; Estimated Glomerular Filt Rate 11; Glucose 132 mg/dL (65-110); Lipase 51 U/L (23-300); Potassium 4.3 mmol/L (3.4-5.0); Sodium 135 mmol/L (137-145)
--- NOTE | 2023-06-25 06:45 | ED.GENADULT ---
HPI - General Adult General Chief complaint: Abdominal Pain Stated complaint: lower abd pain, hx sbo Time Seen by Provider: 06/25/23 06:33 History of Present Illness HPI narrative: the patient is a 68-year-old female who presents emergency department with chief complaint of abdominal pain. Patient reports that she has prior history of bowel obstructions that have been treated with medical management. The patient reports that she has had multiple abdominal surgeries before in the past and has had several episodes of bowel obstructions. The patient also reports that she is a dialysis patient goes to dialysis Sunday and Sunday the patient states that due to the holiday the patient had dialysis on Sunday. Patient reports that yesterday she started having fullness feeling in her lower abdomen reports that she has had bowel movements and has passed gas patient states that her abdomen feels full and has a crampy-like sensation similar to previous episodes the patient reports this is not as bad as her previous episodes have been previously. The patient denies fever Related Data Home Medications Medication Instructions Recorded Confirmed aspirin 325 mg tablet 325 mg PO DAILY 11/26/22 06/25/23 carvedilol 6.25 mg tablet 6.25 mg PO BID 11/26/22 06/25/23 clonazepam 1 mg tablet 1 mg PO DAILY PRN Anxiety 11/26/22 06/25/23 furosemide 40 mg tablet 40 mg PO BID 11/26/22 06/25/23 gabapentin 300 mg capsule 300 mg PO HS 11/26/22 06/25/23 hydralazine 25 mg tablet 25 mg PO BID 11/26/22 06/25/23 losartan 25 mg tablet 25 mg PO DAILY 11/26/22 06/25/23 nifedipine 60 mg tablet,extended 60 mg PO DAILY 11/26/22 06/25/23 release Allergies Allergy/AdvReac Type Severity Reaction Status Date / Time iohexol Allergy Mild Rash Verified 06/25/23 11:41 [From contrast - CT, X-RAY] fentanyl AdvReac Other Verified 06/25/23 11:41 Review of Systems Review of Systems: A 10 system review of systems was completed on the patient and is negative except for what is stated in the HPI. Nursing and ancillary documentation was reviewed. [facility] Past Medical History Medical History (Updated 06/26/23 @ 07:05 by Jean Marie Romero MD) Anxiety Atrial fibrillation Carotid stenosis Most recent carotid Doppler July 2022: Less than 50% stenosis right internal carotid artery and greater than 70% stenosis of the left internal carotid artery. Coronary artery disease End-stage renal disease on hemodialysis Essential hypertension History of GI bleed Multiple and requiring transfusion. No longer on chronic anticoagulation due to bleeds History of small bowel obstruction Hypothyroidism Kidney stones Peripheral artery disease Moderate to severe bilateral lower extremity peripheral vascular disease noted on ABIs July 2022 Surgical History Surgical History (Updated 06/25/23 @ 14:28 by Trang Talbert PA-C) History of abdominal aortic aneurysm repair (1997) Open repair History of cardiac radiofrequency ablation History of four vessel coronary artery bypass graft (1997) History of laparoscopic cholecystectomy (2000) History of vascular surgery History of ventral hernia repair With mesh Retained ureteral stent Chronic S/P dialysis catheter insertion Right upper chest was placed and removed, currently in left upper chest Stenosis of right femoral artery Status post stent approximately 1994 Family History Family History Sibling Acute myocardial infarction Hx of CABG Sibling , As a child Third degree burn injury Sibling Opiate abuse, continuous Mother Age older than 80 years Father , Age greater than 80 Acute myocardial infarction, Onset Age: 45 Sibling Acute myocardial infarction Heart disease Social History Social History (Updated 06/25/23 @ 14:29 by Trang Talbert PA-C) Social History: Surrogate medical de
[2023-06-25] MEDS: SODIUM CHLORIDE 0.9% IV 500 ML 999 ML IV CONT (07:07)
[2023-06-25] MEDS: LORazepam INJ (*CRX) 2 MG/ML VIAL 0.5 MG IV PUSH (07:07)
[2023-06-25] MEDS: ONDANSETRON INJ 4 MG/2 ML VIAL IV PUSH ×2 (07:07→11:42)
[2023-06-25 07:08] LABS: Lactic Acid Reflex 1.8 mmol/L (0.7-2.0)
--- NOTE | 2023-06-25 07:59 | PC.NURSE ---
Incontinent of bowel and bladder. Linens changed.
[2023-06-25 08:50] LABS: Appearance Urine Cloudy (Clear); Bacteria Urine None Seen /hpf; Bilirubin Urine Negative (Negative); Budding Yeast Urine Present /hpf; Color Urine Yellow (Yellow); Glucose Urine UA Negative (Negative); Ketones Urine Negative (Negative); Leukocyte Esterase Ur 2+ LEU/UL (Negative); Need Manual Microscopic Reviewed; Nitrate Urine Negative (Negative); Protein Urine 3+ mg/dL (Negative); Specific Grav Ur 1.016 (1.001-1.035); Squamous Epithelial Cell Urine None seen /hpf (Few); Urobilinogen Urine 0.2 mg/dL (<2.0); WBC Urine 51-100 /hpf; pH Urine 6.5 (5.0-9.0)
[2023-06-25 08:52] LABS: Add Urine Microscopic? YES
--- NOTE | 2023-06-25 09:02 | PM.CNGS ---
Assessment and Plan Assessment and plan (1) Small bowel obstruction: Code(s): K56.609 - Unspecified intestinal obstruction, unspecified as to partial versus complete obstruction Status: Acute Assessment and Plan: Patient presents with recurrent small-bowel obstruction. CT reviewed and discussed with patient in detail. No diffuse peritoneal signs on exam. Would recommend to continue conservative treatment with NG tube decompression, bowel rest, IV fluids, and analgesics as needed. We will continue to monitor with serial abdominal exams and imaging. The patient would be a high risk surgical candidate given her multiple comorbidities and extensive surgical history. (2) Mesenteric mass: Code(s): K63.89 - Other specified diseases of intestine Status: Acute Assessment and Plan: Small central mesenteric mass that was also seen in November of 2022. Appears unchanged on recent CT. (3) UTI (urinary tract infection): Code(s): N39.0 - Urinary tract infection, site not specified Status: Acute Assessment and Plan: Abnormal UA with yeast present, urine culture pending, management per primary service (4) End-stage renal disease on hemodialysis: Code(s): N18.6 - End stage renal disease; Z99.2 - Dependence on renal dialysis Status: Chronic Assessment and Plan: Nephrology consulted. (5) Peripheral artery disease: Code(s): I73.9 - Peripheral vascular disease, unspecified Status: Acute (6) History of abdominal aortic aneurysm repair: Onset Date: 1997 Code(s): Z98.890 - Other specified postprocedural states Status: Resolved (7) Atrial fibrillation: Code(s): I48.91 - Unspecified atrial fibrillation Status: Chronic (8) Essential hypertension: Code(s): I10 - Essential (primary) hypertension Status: Chronic Plan I have discussed the patient's case and plan of care with Dr. Webb. Thank you for allowing us to see the patient in consultation and we will continue to follow along with you. History of Present Illness Consult details Consult date: 06/25/23 Reason for consult: other (Small-bowel obstruction) Requesting physician: Ulisses Meeks MD Narrative: This is a 68-year-old woman with multiple medical problems and multiple previous abdominal and vascular surgeries. She is known to our service from a previous hospitalization for a small-bowel obstruction in November of this year. She developed generalized abdominal pain last night that progressively worsened overnight. She reports associated nausea and vomiting. Multiple episodes of vomiting at home. Symptoms felt similar to her previous bowel obstruction and she presented to the ER for further evaluation. [place] [address] and lactic acid 1.8. She has end-stage renal disease on hemodialysis. BUN is 42 and creatinine 4.1. UA also shows 2+ leukocytes, 11-20 rbc's, 5100 wbc's, 3+ protein, and yeast. CT scan of the abdomen and pelvis suggests small bowel obstruction with an unchanged small central mesenteric mass. Incidentally noted is a right ureteral stent and 3.7 cm infrarenal abdominal aortic aneurysm. Our service was consulted by the ED physician for the small-bowel obstruction. She has had multiple previous small-bowel obstructions that were all treated conservatively in the past. This is her second hospitalization this year for a small-bowel obstruction. She has had multiple previous abdominal surgeries. She had an abdominal aortic aneurysm repair, what appears to be a femoral femoral bypass and reported clotting complication of her bypass that required further surgery. She also had an incisional hernia repair and laparoscopic cholecystectomy. She denies any new surgeries or bowel obstructions since her last office pill is a toth. She denies having any further workup of her mesenteric mass. She has a history of coronary artery disease
--- NOTE | 2023-06-25 10:21 | ADMGEN ---
This patient, Mary Ramirez, was admitted to Medical Room 346-01. Patient/family oriented to hospital policies and general routines including ID bracelet, bed and alarms, visiting hours, pain management, procedures, bathroom and other care routines, personal items, smoking policy, room service/diet, and visiting hours. Information on how to activate the Rapid Response Team has been discussed. Patient/Family are encouraged to report perceived risks to care and to ask questions if they do not understand what they are told or what they should do.
--- NOTE | 2023-06-25 11:15 | PM.CNNEP ---
Assessment and Plan Assessment and plan (1) End stage renal disease: Code(s): N18.6 - End stage renal disease Status: Chronic Assessment and Plan: plan HD tomorrow per patient preference normally does HD on Mondays and Fridays follow electrolytes, volume status, and clearance (2) Small bowel obstruction: Code(s): K56.609 - Unspecified intestinal obstruction, unspecified as to partial versus complete obstruction Status: Acute Assessment and Plan: as evidenced by history and imaging studies NG tube in place for decompression Surgery following continue current therapy (3) Essential hypertension: Code(s): I10 - Essential (primary) hypertension Status: Chronic Assessment and Plan: noted fluctuations since admission suspect pain issues playing a role along with inability to take po BP medications recommend PRN IV medications (i.e. hydralazine or labetalol) for now until she can resume home oral BP medications follow trend of hemodynamics (4) Mesenteric mass: Code(s): K63.89 - Other specified diseases of intestine Status: Acute Assessment and Plan: noted on previous CT scan done on 11/26/22 appears unchanged I will continue follow patient with you while she remains hospitalized make further recommendations during her hospital course. Thank you for allowing me to participate in the care of this patient. History of Present Illness Reason for Consult Consult date: 06/25/23 Reason for consult: end stage renal disease Chief Complaint Chief complaint: SBO/ESRD History of Present Illness Narrative: The patient is a 68-year-old female with a past medical history as outlined below who presented to [facility] Emergency Room due to complaints of abdominal pain. Apparently, the evening before admission the patient noticed increasing fullness and cramping throughout her lower abdominal. The symptoms were somewhat similar to her previous bowel obstructions but she did state that she was passing gas and passing stools. Her symptoms persisted overnight and on the day of admission in association with 3 episodes of vomiting which prompted her to come to the emergency room for further assessment for fear that she had another bowel obstruction. She reported no fevers, chills, diaphoresis, hemataemesis, melena, or hematochezia. Workup and evaluation emergency room demonstrated the patient to be hemodynamically stable and afebrile. Routine blood test demonstrated an elevated white blood cell count of 16.9 and her chemistry results demonstrated labs consistent with her known history of end-stage renal disease although her calcium level was slightly elevated. Subsequent CT scan of the abdomen pelvis demonstrated findings consistent with a small-bowel obstruction and a small suspected central mesenteric mass which was unchanged from previous imaging. Given these findings, an NG-tube was placed for decompression and she was subsequently admitted to the hospital for further evaluation and therapy along with surgery consultation. Renal consultation was requested due to her end-stage renal disease. The patient normally dialyzes on a Sunday and Sunday schedule currently at [facility] under the care of Dr. Grey. I am not entirely sure why she only dialyzes 2 times a week but presumably she has significant residual kidney function that allows her to not need 3 times a week dialysis treatments. Her last dialysis treatment was on 06/22/23. She tells me that she has had issues and problems with dialysis access placement secondary to her significant and profound peripheral vascular disease and also had issues and problems with dialysis catheters requiring multiple exchanges and placements since her initiation on renal replacement therapy/dialysis. She is due for dialysis today. Currently, at the time my visit, she is in mild discomfo
[2023-06-25] MEDS: SODIUM CHLORIDE 0.9% IV 1,000 ML 100 ML IV CONT ×2 (11:39→21:21)
--- NOTE | 2023-06-25 13:14 | PM.IMHP ---
H&P: HPI History of Present Illness Date/Time: 06/25/23 14:00 Chief Complaint: Abdominal pain. Narrative: This is a pleasant 68-year-old female with history of multiple abdominal surgeries and bowel obstructions, aortic aneurysm repair, paroxysmal atrial fibrillation, coronary artery disease status post 4 vessel bypass, peripheral vascular disease, hypertension, chronic obstructive pulmonary disease, hypothyroidism, and end-stage renal disease on hemodialysis who presented to the emergency department via EMS from home for evaluation of abdominal pain. The patient provides the following history. Yesterday evening she noticed fullness and cramping throughout the lower abdomen, somewhat similar to prior bowel obstructions however she reports passing gas and passing loose stools. Her symptoms persisted overnight and this morning she had 3 episodes of emesis which prompted her to come in for evaluation. She denies fever, chills, sweats, hematemesis, melena, and hematochezia. She was afebrile on arrival with stable vital signs. Labs were significant for a WBC count of 16.9, sodium 135, chloride 94, BUN 42, creatinine 4.10, calcium 11.0. CT of the abdomen and pelvis showed findings most consistent with small-bowel obstruction, right ureteral stent in place, and a suspected small central mesenteric mass which is unchanged from previous imaging, could reflect carcinoid. NG tube was inserted and she has been admitted in this setting. She is resting comfortably at the time my evaluation and has no complaints. Review of Systems Review of Systems: Twelve systems were reviewed. She has had URI symptoms for the last couple of weeks after being exposed to a sick great grandson. She tested negative for COVID on a home test. She continues to have a cough which is rarely productive. Other than that she is feeling back to normal. She does still urinate but denies dysuria. Except as documented, all other systems were reviewed and are negative. [facility] Past Medical History Medical History (Updated 06/25/23 @ 15:50 by Trang Talbert PA-C) Anxiety Atrial fibrillation Carotid stenosis Most recent carotid Doppler July 2022: Less than 50% stenosis right internal carotid artery and greater than 70% stenosis of the left internal carotid artery. Coronary artery disease End-stage renal disease on hemodialysis Essential hypertension History of GI bleed Multiple and requiring transfusion. No longer on chronic anticoagulation due to bleeds History of small bowel obstruction Hypothyroidism Kidney stones Peripheral artery disease Moderate to severe bilateral lower extremity peripheral vascular disease noted on ABIs July 2022 Surgical History Surgical History (Updated 06/25/23 @ 14:28 by Trang Talbert PA-C) History of abdominal aortic aneurysm repair (1997) Open repair History of cardiac radiofrequency ablation History of four vessel coronary artery bypass graft (1997) History of laparoscopic cholecystectomy (2000) History of vascular surgery History of ventral hernia repair With mesh Retained ureteral stent Chronic S/P dialysis catheter insertion Right upper chest was placed and removed, currently in left upper chest Stenosis of right femoral artery Status post stent approximately 1994 Family History Family History Sibling Acute myocardial infarction Hx of CABG Sibling , As a child Third degree burn injury Sibling Opiate abuse, continuous Mother Age older than 80 years Father , Age greater than 80 Acute myocardial infarction, Onset Age: 45 Sibling Acute myocardial infarction Heart disease Social History Social History (Updated 06/25/23 @ 14:29 by Trang Talbert PA-C) Social History: Surrogate medical decision maker: Beverley Ann, daughter Code status: Full code Smoking packs per day: 2 Smoking cigarettes
[2023-06-25] MEDS: METOPROLOL TARTRATE INJ 5 MG/5 ML VIAL IV PUSH (17:29)
[2023-06-25] MEDS: HEPARIN SODIUM 5,000 UNITS/ML VIAL 5000 UNITS SUB-Q (21:21)
[2023-06-26] VITALS (24 sets, daily range): BP systolic 162–220; BP diastolic 59–93; PULSE 49–71; RESP 16–20; TEMP 36.1–37.4; O2SAT 97–98; BMI 24.2
[2023-06-26 06:01] LABS: Basophils Absolute Auto 0.1 K/mm3 (0.0-0.1); Basophils Percent Auto 0.8 % (0.2-1.2); Eosinophils Absolute Auto 0.3 K/mm3 (0-0.3); Eosinophils Percent Auto 3.1 % (0-4.4); Hemoglobin 12.2 g/dL (12.0-15.0); Immature Granulocyte Absolute 0.07 K/mm3 (0.00-0.031); Immature Granulocyte Percent A 0.7 % (0-0.5); Lymphocytes Absolute Auto 1.55 K/mm3 (0.9-3.2); Lymphocytes Percent Auto 15.4 % (18.3-44.2); Mean Corpuscular HGB Conc 32.1 g/dl (32-36); Mean Corpuscular Hemoglobin 30.3 pg (26-34); Mean Corpuscular Volume 94.5 fl (80-100); Mean Platelet Volume 10.6 fl (7.4-10.4); Monocytes Absolute Auto 0.8 K/mm3 (0.1-0.6); Monocytes Percent Auto 8.3 % (2.6-8.5); Neutrophils Absolute Auto 7.2 K/mm3 (1.3-6.7); Neutrophils Percent Auto 71.7 % (45.5-73.1); Platelet Count Result 238 k/mm3 (150-375); Red Blood Count 4.02 M/mm3 (4.2-5.4); Red Cell Distribution Width 13.2 % (11.5-14.5); White Blood Count 10.1 K/mm3 (4.5-10.0)
[2023-06-26 06:25] LABS: Anion Gap 11 mmol/L (8-16); Blood Urea Nitrogen 45 mg/dL (7-17); Calcium 9.3 mg/dL (8.4-10.2); Carbon Dioxide 27 mmol/L (22-30); Chloride 102 mmol/L (98-107); Estimated CRCL calculation 10 ml/min; Estimated Glomerular Filt Rate 10; Glucose 91 mg/dL (65-110); Magnesium 2.4 mg/dL (1.6-2.3); Phosphorus 4.9 mg/dL (2.5-4.5); Potassium 3.8 mmol/L (3.4-5.0); Sodium 140 mmol/L (137-145)
[2023-06-26] MEDS: hydrALAZINE HCL 20 MG/ML VIAL 10 MG IV PUSH ×3 (06:34→20:15)
[2023-06-26 07:50] LABS: Parathyroid Intact 281.3 pg/mL (7.5-53.5)
[2023-06-26] MEDS: HEPARIN SODIUM 5,000 UNITS/ML VIAL 5000 UNITS SUB-Q ×2 (08:29→20:14)
--- NOTE | 2023-06-26 10:00 | PM.PNGS ---
Progress Note: A&P Assessment and Plan (1) Small bowel obstruction: Code(s): K56.609 - Unspecified intestinal obstruction, unspecified as to partial versus complete obstruction Status: Acute Assessment and Plan: Clinically improving. We will clamp her NG. If she is able to tolerate the clamping trial, then we will remove the NG tube and start clear liquids. (2) Mesenteric mass: Code(s): K63.89 - Other specified diseases of intestine Status: Acute Assessment and Plan: Small central mesenteric mass that was also seen in November of 2022. Appears unchanged on recent CT. (3) End-stage renal disease on hemodialysis: Code(s): N18.6 - End stage renal disease; Z99.2 - Dependence on renal dialysis Status: Chronic Assessment and Plan: Nephrology following Plan I have discussed the patient's case and plan of care with Dr. Webb. Subjective Subjective Date/Time Seen: 06/26/23 10:00 Patient reports: feels better, pain is less, flatus and no bowel movement Interval history: Patient doing well today. She is reporting only mild intermittent lower abdominal cramping this morning, but much improved from yesterday. No nausea. NG tube with 1400 out yesterday and only 200 cc out overnight. Other complaints at this time. Exam Const: General: comfortable and no acute distress Orientation/consciousness: patient oriented x3 GI: Inspection: non-distended GI Palp: Yes Soft to palpation (Other than some firmness just the right of midline in the lower abdomen), Yes Tenderness to palpation present (GI) (Mild tenderness across the lower abdomen), No Guarding due to palpation present (GI) and No Rebound tenderness present Auscultation: normal bowel sounds Objective Data Vital Signs Vital Signs: Vital Signs - 24 hr 06/25/23 11:00 06/25/23 13:07 06/25/23 14:00 Temperature 97.5 F L 97.0 F L Pulse Rate 60 68 Respiratory Rate 18 16 Blood Pressure 142/55 H 172/57 H Pulse Oximetry 95 96 Oxygen Delivery Room Air 06/25/23 12:00 06/25/23 16:00 06/25/23 17:29 Temperature Pulse Rate 61 60 69 Respiratory Rate Blood Pressure Pulse Oximetry Oxygen Delivery 06/25/23 23:34 06/25/23 20:00 06/26/23 00:00 Temperature Pulse Rate 48 L 58 L 52 L Respiratory Rate Blood Pressure Pulse Oximetry Oxygen Delivery 06/25/23 20:00 06/26/23 04:00 06/26/23 06:33 Temperature Pulse Rate 54 L 49 L Respiratory Rate Blood Pressure Pulse Oximetry Oxygen Delivery Room Air 06/26/23 06:00 06/25/23 22:15 Temperature 98.1 F 97.4 F L Pulse Rate 60 60 Respiratory Rate 18 16 Blood Pressure 182/64 H 155/52 H Pulse Oximetry 97 94 Oxygen Delivery Intake/Output Intake/Output: Intake & Output 06/23/23 06/24/23 06/25/23 06/26/23 23:59 23:59 23:59 23:59 Intake Total 1500 Output Total 1400 200 Balance 100 -200 Meds/Results Medications: Active Medications Generic Name Dose Route Start Last Admin Trade Name Freq PRN Reason Stop Dose Admin Heparin Sodium (Porcine) 5,000 units 06/25/23 21:00 06/26/23 08:29 Heparin Sodium 5,000 Units/Ml Vial SUB-Q 5,000 units Q12HR ANDRÉS Administration Hydralazine HCl 10 mg 06/25/23 15:57 06/26/23 06:34 Hydralazine Hcl 20 Mg/Ml Vial IV PUSH 10 mg Q6H PRN Administration SBP > 165 or DBP > 105 Albumin Human 50 mls @ 999 mls/hr 06/26/23 06:49 Albutein IVPB 07/26/23 06:48 Q10M PRN HYPOTENSION Lorazepam 0.5 mg 06/25/23 15:50 Lorazepam Inj (*Crx) 2 Mg/Ml Vial IV PUSH TID PRN Anxiety Metoprolol Tartrate 5 mg 06/25/23 18:00 06/26/23 06:33 Metoprolol Tartrate Inj 5 Mg/5 Ml Vial IV PUSH Not Given Q6H ANDRÉS Ondansetron HCl 4 mg 06/25/23 09:15 06/25/23 11:42 Ondansetron Inj 4 Mg/2 Ml Vial IV PUSH 4 mg Q4H PRN Administration Nausea Radiology Results: ITS Impressions Abdomen/Pelvis CT 06/25/23 07:23 Impre
[2023-06-26] MEDS: clonazePAM (*CRX) 0.5 MG TABLET 1 MG PO (12:35)
--- NOTE | 2023-06-26 12:52 | PM.IMPN ---
Progress Note: A&P Assessment and Plan (1) Small bowel obstruction: Code(s): K56.609 - Unspecified intestinal obstruction, unspecified as to partial versus complete obstruction Status: Acute Assessment and Plan: Patient has had multiple abdominal surgeries and prior small-bowel obstructions. Conservative treatment with NG tube decompression and bowel rest. Avoid over-hydration as she has on dialysis. Analgesics and antiemetics are available as needed. Continue serial abdominal exams and imaging. General surgery consulted. NG tube clamped and clear liquids at dinner. (2) Mesenteric mass: Code(s): K63.89 - Other specified diseases of intestine Status: Acute Assessment and Plan: Small central mesenteric mass appears unchanged from CT in November 2022. May need outpatient monitoring. (3) End-stage renal disease on hemodialysis: Code(s): N18.6 - End stage renal disease; Z99.2 - Dependence on renal dialysis Status: Chronic Assessment and Plan: Patient has dialysis on Sunday, Sunday, Sunday. Stable volume status. No acute electrolyte abnormalities. Nephrology consulted. (4) Hypercalcemia: Code(s): E83.52 - Hypercalcemia Status: Acute Assessment and Plan: Has not historically had an issue with hypercalcemia. Nephrology is following. Check parathyroid and phosphorus. Repeat calcium in a.m. (5) Essential hypertension: Code(s): I10 - Essential (primary) hypertension Status: Chronic Assessment and Plan: Blood pressures have fluctuated from the 120s to 170 systolic, in part due to pain. Home medications restarted. Continue to monitor blood pressures closely. (6) Anxiety: Code(s): F41.9 - Anxiety disorder, unspecified Status: Acute Assessment and Plan: Home dose of clonazepam 1 mg as needed for anxiety. Subjective Date/time seen: 06/26/23 12:52 Interval history: Patient doing well today. Denies any nausea vomiting at this time. NG tube clamped and plan to give patient water around lunch and then clear liquids at dinner if tolerated. Her home medications have been restarted. She denies any abdominal pain. This is her 5th small-bowel obstruction. General surgery also following. Exam Narrative: GENERAL: Comfortable, no acute distress HENMT: moist mucous membranes , NG tube in place and clamped EYES: EOM intact b/l RESPIRATORY: clear to auscultation CARDIO: RRR GI: soft, nontender, bowel sounds present EXTREMITIES: no edema, redness or tenderness Objective Data Vital Signs Vital Signs: Vital Signs - 24 hr 06/25/23 13:07 06/25/23 14:00 06/25/23 16:00 Temperature 97.0 F L Pulse Rate 68 60 Respiratory Rate 16 Blood Pressure 172/57 H Pulse Oximetry 96 Oxygen Delivery Room Air 06/25/23 17:29 06/25/23 23:34 06/25/23 20:00 Temperature Pulse Rate 69 48 L 58 L Respiratory Rate Blood Pressure Pulse Oximetry Oxygen Delivery 06/26/23 00:00 06/25/23 20:00 06/26/23 04:00 Temperature Pulse Rate 52 L 54 L Respiratory Rate Blood Pressure Pulse Oximetry Oxygen Delivery Room Air 06/26/23 06:33 06/26/23 06:00 06/25/23 22:15 Temperature 98.1 F 97.4 F L Pulse Rate 49 L 60 60 Respiratory Rate 18 16 Blood Pressure 182/64 H 155/52 H Pulse Oximetry 97 94 Oxygen Delivery 06/26/23 08:00 06/26/23 12:00 Temperature Pulse Rate 56 L 62 Respiratory Rate Blood Pressure Pulse Oximetry Oxygen Delivery Intake/Output Intake/Output: Intake & Output 06/23/23 06/24/23 06/25/23 06/26/23 23:59 23:59 23:59 23:59 Intake Total 1500 Output Total 1400 200 Balance 100 -200 Meds/Results Medications: Active Medications Generic Name Dose Route Start Last Admin Trade Name Freq PRN Reason Stop Dose Admin Carvedilol 6.25 mg 06/26/23 17:00 Carvedilol 6.25 Mg Tablet P
--- NOTE | 2023-06-26 16:46 | PM.PNNEP ---
Progress Note: A&P Assessment and Plan (1) End stage renal disease: Code(s): N18.6 - End stage renal disease Status: Chronic Assessment and Plan: HD today normally does HD on Mondays and Fridays will eventually transtion back to follow electrolytes, volume status, and clearance (2) Small bowel obstruction: Code(s): K56.609 - Unspecified intestinal obstruction, unspecified as to partial versus complete obstruction Status: Acute Assessment and Plan: as evidenced by history and imaging studies NG tube in place for decompression Surgery following continue current therapy (3) Essential hypertension: Code(s): I10 - Essential (primary) hypertension Status: Chronic Assessment and Plan: noted fluctuations since admission suspect pain issues playing a role along with inability to take po BP medications recommend PRN IV medications (i.e. hydralazine or labetalol) for now until she can resume home oral BP medications follow trend of hemodynamics (4) Mesenteric mass: Code(s): K63.89 - Other specified diseases of intestine Status: Acute Assessment and Plan: noted on previous CT scan done on 11/26/22 appears unchanged Will continue to follow. Subjective Date/time seen: 06/26/23 16:46 Interval history: Follow-up for end stage renal disease on hemodialysis. Tolerating dialysis treatment at the time of my visit (seen on HD at 4:38PM); reports only mild mild intermittent lower abdominal cramping earlier today but much better in comparison to yesterday; still with significant NG tube output noted but no nausea; no other acute complaints voiced. Exam Narrative: General: thin WD/WN female in NAD Heart: normal S1 and S2; no rub Lungs: clear to auscultation Abdomen: soft, mild TTP, nondistended, positive bowel sounds Extremities: no cyanosis or clubbing; no edema Skin: warm and dry Objective Data Vital Signs Vital Signs: Vital Signs Temp Pulse Resp BP Pulse Ox O2 Del Method 06/26/23 16:00 67 06/26/23 16:30 65 204/87 H 06/26/23 16:17 62 220/83 H 06/26/23 16:25 97.4 F L 65 18 216/93 H 06/26/23 15:28 97.7 F 59 L 16 200/70 H 97 06/26/23 12:00 62 06/26/23 08:00 56 L 06/25/23 22:15 97.4 F L 60 16 155/52 H 94 06/26/23 06:00 98.1 F 60 18 182/64 H 97 06/26/23 06:33 49 L 06/26/23 04:00 54 L 06/25/23 20:00 Room Air 06/26/23 00:00 52 L 06/25/23 20:00 58 L 06/25/23 23:34 48 L Intake/Output Intake/Output: Intake & Output 06/23/23 06/24/23 06/25/23 06/26/23 23:59 23:59 23:59 23:59 Intake Total 1500 Output Total 1400 200 Balance 100 -200 Meds/Results Medications: Active Medications Generic Name Dose Route Start Last Admin Trade Name Freq PRN Reason Stop Dose Admin Carvedilol 6.25 mg 06/26/23 17:00 Carvedilol 6.25 Mg Tablet PO BID ANDRÉS Clonazepam 1 mg 06/26/23 11:56 06/26/23 12:35 Clonazepam (*Crx) 0.5 Mg Tablet PO 1 mg DAILY PRN Administration Anxiety Furosemide 40 mg 06/26/23 17:00 Furosemide 40 Mg Tablet PO BID ANDRÉS Gabapentin 300 mg 06/26/23 21:00 Gabapentin 300 Mg Capsule PO HS ANDRÉS Heparin Sodium (Porcine) 5,000 units 06/25/23 21:00 06/26/23 08:29 Heparin Sodium 5,000 Units/Ml Vial SUB-Q 5,000 units Q12HR ANDRÉS Administration Hydralazine HCl 10 mg 06/25/23 15:57 06/26/23 15:29 Hydralazine Hcl 20 Mg/Ml Vial IV PUSH 10 mg Q6H PRN Administration SBP > 165 or DBP > 105 Hydralazine HCl 25 mg 06/26/23 17:00 Hydralazine Hcl 25 Mg Tablet PO BID ANDRÉS Albumin Human 50 mls @ 999 mls/hr 06/26/23 06:49 Albutein IVPB 07/26/23 06:48 Q10M PRN HYPOTENSION Losartan Potassium 25 mg 06/27/23 09:00 Losartan Potassium 25 Mg Tablet PO DAILY ANDRÉS Nifedipine 60 mg 06/27/23 09:00 Nif
--- NOTE | 2023-06-26 16:46 | P.PNNP_ITS ---
Progress Note: A&P Assessment and Plan (1) End stage renal disease: Code(s): N18.6 - End stage renal disease Status: Chronic Assessment and Plan: * HD today * normally does HD on Mondays and Fridays * will eventually transtion back to * follow electrolytes, volume status, and clearance (2) Small bowel obstruction: Code(s): K56.609 - Unspecified intestinal obstruction, unspecified as to partial versus complete obstruction Status: Acute Assessment and Plan: * as evidenced by history and imaging studies * NG tube in place for decompression * Surgery following * continue current therapy (3) Essential hypertension: Code(s): I10 - Essential (primary) hypertension Status: Chronic Assessment and Plan: * noted fluctuations since admission * suspect pain issues playing a role along with inability to take po BP medications * recommend PRN IV medications (i.e. hydralazine or labetalol) for now until she can resume home oral BP medications * follow trend of hemodynamics (4) Mesenteric mass: Code(s): K63.89 - Other specified diseases of intestine Status: Acute Assessment and Plan: * noted on previous CT scan done on 11/26/22 * appears unchanged Will continue to follow. Subjective Date/time seen: 06/26/23 16:46 Interval history: Follow-up for end stage renal disease on hemodialysis. Tolerating dialysis treatment at the time of my visit (seen on HD at 4:38PM); reports only mild mild intermittent lower abdominal cramping earlier today but much better in comparison to yesterday; still with significant NG tube output noted but no nausea; no other acute complaints voiced. Exam Narrative: General: thin WD/WN female in NAD Heart: normal S1 and S2; no rub Lungs: clear to auscultation Abdomen: soft, mild TTP, nondistended, positive bowel sounds Extremities: no cyanosis or clubbing; no edema Skin: warm and dry Objective Data Vital Signs Vital Signs: Vital Signs Temp Pulse Resp BP Pulse Ox O2 Del Method 06/26/23 16:00 67 06/26/23 16:30 65 204/87 H 06/26/23 16:17 62 220/83 H 06/26/23 16:25 97.4 F L 65 18 216/93 H 06/26/23 15:28 97.7 F 59 L 16 200/70 H 97 06/26/23 12:00 62 11/28/23 08:00 56 L 06/25/23 22:15 97.4 F L 60 16 155/52 H 94 06/26/23 06:00 98.1 F 60 18 182/64 H 97 06/26/23 06:33 49 L 06/26/23 04:00 54 L 06/25/23 20:00 Room Air 06/26/23 00:00 52 L 06/25/23 20:00 58 L 06/25/23 23:34 48 L Intake/Output Intake/Output: Intake & Output 06/23/23 06/24/23 06/25/23 06/26/23 23:59 23:59 23:59 23:59 Intake Total 1500 Output Total 1400 200 Balance 100 -200 Meds/Results Medications: Active Medications Generic Name Dose Route Start Last Admin Trade Name Freq PRN Reason Stop Dose Admin Carvedilol 6.25 mg 06/26/23 17:00 Carvedilol 6.25 Mg Tablet PO BID [facility] Clonazepam 1 mg 06/26/23 11:56 06/26/23 12:35 Clonazepam (*Crx) 0.5 Mg Tablet PO 1 mg DAILY PRN Administr
[2023-06-26] MEDS: GABAPENTIN 300 MG CAPSULE PO (20:15)
[2023-06-26] MEDS: ONDANSETRON INJ 4 MG/2 ML VIAL IV PUSH (20:15)
[2023-06-26] MEDS: LORazepam INJ (*CRX) 2 MG/ML VIAL 0.5 MG IV PUSH (23:08)
[2023-06-27] VITALS (13 sets, daily range): BP systolic 163–196; BP diastolic 41–64; PULSE 56–72; RESP 16–18; TEMP 36.9–37.1; O2SAT 97–98
[2023-06-27 05:48] LABS: Hematocrit 36.3 % (37.0-47.0); Hemoglobin 11.4 g/dL (12.0-15.0); Mean Corpuscular HGB Conc 31.4 g/dl (32-36); Mean Corpuscular Hemoglobin 30.1 pg (26-34); Mean Corpuscular Volume 95.8 fl (80-100); Mean Platelet Volume 10.3 fl (7.4-10.4); Platelet Count Result 211 k/mm3 (150-375); Red Blood Count 3.79 M/mm3 (4.2-5.4); Red Cell Distribution Width 13.5 % (11.5-14.5); White Blood Count 8.3 K/mm3 (4.5-10.0)
[2023-06-27] MEDS: hydrALAZINE HCL 20 MG/ML VIAL 10 MG IV PUSH (05:56)
[2023-06-27 06:15] LABS: Anion Gap 8 mmol/L (8-16); Blood Urea Nitrogen 22 mg/dL (7-17); Calcium 9.6 mg/dL (8.4-10.2); Carbon Dioxide 28 mmol/L (22-30); Chloride 104 mmol/L (98-107); Estimated CRCL calculation 13 ml/min; Estimated Glomerular Filt Rate 16; Glucose 88 mg/dL (65-110); Sodium 140 mmol/L (137-145)
[2023-06-27] MEDS: FUROSEMIDE 40 MG TABLET PO ×2 (09:13→17:36)
[2023-06-27] MEDS: HEPARIN SODIUM 5,000 UNITS/ML VIAL 5000 UNITS SUB-Q ×2 (09:13→20:10)
[2023-06-27] MEDS: hydrALAZINE HCL 25 MG TABLET PO ×2 (09:13→17:37)
[2023-06-27] MEDS: NIFEdipine 30 MG TAB.ER.24 60 MG PO (09:13)
[2023-06-27] MEDS: LOSARTAN POTASSIUM 25 MG TABLET PO (09:13)
[2023-06-27] MEDS: carvediloL 6.25 MG TABLET PO ×2 (09:15→17:37)
--- NOTE | 2023-06-27 11:14 | PM.PNGS ---
Progress Note: A&P Assessment and Plan (1) Small bowel obstruction: Code(s): K56.609 - Unspecified intestinal obstruction, unspecified as to partial versus complete obstruction Status: Acute Assessment and Plan: Continues to improve. Refused NG removal yesterday as she continued to have abdominal cramping, which has improved overnight. Will try clamping the NG tube today and remove the NG if she tolerates. May need to consider getting a water-soluble small bowel follow through if she doesn't tolerate the clamping trial. (2) Mesenteric mass: Code(s): K63.89 - Other specified diseases of intestine Status: Acute Assessment and Plan: Small central mesenteric mass that was also seen in November of 2022. Appears unchanged on recent CT. (3) End-stage renal disease on hemodialysis: Code(s): N18.6 - End stage renal disease; Z99.2 - Dependence on renal dialysis Status: Chronic Assessment and Plan: Nephrology following Plan I have discussed the patient's case and plan of care with Dr. Webb. Subjective Subjective Date/Time Seen: 06/27/23 11:14 Patient reports: feels better, pain is less, flatus, no bowel movement and afebrile Interval history: Patient seen this morning. She had her NG clamped yesterday morning and into the afternoon during dialysis. She began having worsening abdominal cramping in her lower abdomen while clamped and apparently refused to have her NG tube pulled. She did not try any clear liquids yesterday when the tube was clamped, but somehow her diet was changed to clear liquids and she received a clear liquid tray while her NG was in place this morning. She reportedly took in her entire tray of clear liquids. She had 550 cc NG output overnight when on suction. She reports her abdominal pain and cramping is much better today. Still passing flatus today but no BM since admission. Review of Systems Review of Systems: All systems reviewed & are unremarkable except as noted in HPI and below Exam Const: General: comfortable and no acute distress Orientation/consciousness: patient oriented x3 GI: Inspection: non-distended GI Palp: Yes Soft to palpation, No Tenderness to palpation present (GI), No Guarding due to palpation present (GI) and No Rebound tenderness present Auscultation: normal bowel sounds Objective Data Vital Signs Vital Signs: Vital Signs - 24 hr 06/26/23 12:00 06/26/23 15:28 06/26/23 16:25 Temperature 97.7 F 97.4 F L Pulse Rate 62 59 L 65 Respiratory Rate 16 18 Blood Pressure 200/70 H 216/93 H Pulse Oximetry 97 Oxygen Delivery 06/26/23 16:17 06/26/23 16:30 06/26/23 16:00 Temperature Pulse Rate 62 65 67 Respiratory Rate Blood Pressure 220/83 H 204/87 H Pulse Oximetry Oxygen Delivery 06/26/23 16:45 06/26/23 17:00 06/26/23 17:15 Temperature Pulse Rate 69 68 63 Respiratory Rate Blood Pressure 190/88 H 189/76 H 188/81 H Pulse Oximetry Oxygen Delivery 06/26/23 17:30 06/26/23 17:45 06/26/23 18:00 Temperature Pulse Rate 66 69 70 Respiratory Rate Blood Pressure 169/76 H 189/89 H 172/87 H Pulse Oximetry Oxygen Delivery 06/26/23 18:15 06/26/23 18:57 06/26/23 18:30 Temperature 97.4 F L Pulse Rate 68 63 71 Respiratory Rate 18 Blood Pressure 184/89 H 203/76 H 179/93 H Pulse Oximetry Oxygen Delivery 06/26/23 18:45 06/26/23 18:48 06/26/23 22:50 Temperature 97.0 F L Pulse Rate 67 67 61 Respiratory Rate 20 Blood Pressure 186/86 H 162/81 H 181/59 H Pulse Oximetry 98 Oxygen Delivery 06/26/23 20:00 06/26/23 20:00 06/27/23 00:00 Temperature Pulse Rate 60 68 Respiratory Rate Blood Pressure Pulse Oximetry Oxygen Delivery Room Air 06/27/23 04:00 06/27/23 06:08 06/27/23 06:37 Temperature 98.7 F Pulse Rate 66 63 Respiratory Rate 17 Blood Pressure 195/56 H 173/64 H Pulse Oximetry 98 Oxygen Delivery 06/27/23 09:15 1
--- NOTE | 2023-06-27 14:02 | PM.PNNEP ---
Progress Note: A&P Assessment and Plan (1) End stage renal disease: Code(s): N18.6 - End stage renal disease Status: Chronic Assessment and Plan: plan next HD session Sunday or Sunday normally does HD on Mondays and Fridays will eventually transition back to this schedule follow electrolytes, volume status, and clearance (2) Small bowel obstruction: Code(s): K56.609 - Unspecified intestinal obstruction, unspecified as to partial versus complete obstruction Status: Acute Assessment and Plan: as evidenced by history and imaging studies NG tube in place for decompression Surgery following clamping NGT and attempting to advance diet continue current therapy (3) Essential hypertension: Code(s): I10 - Essential (primary) hypertension Status: Chronic Assessment and Plan: noted fluctuations since admission suspect pain issues playing a role along with inability to take po BP medications PRN IV medications (i.e. hydralazine or labetalol) for now until she can resume home oral BP medications follow trend of hemodynamics (4) Mesenteric mass: Code(s): K63.89 - Other specified diseases of intestine Status: Acute Assessment and Plan: noted on previous CT scan done on 11/26/22 appears unchanged Will continue to follow. Subjective Date/time seen: 06/27/23 14:02 Interval history: Follow-up for end stage renal disease on hemodialysis. Tolerated dialysis yesterday without any issues or problems; trial of clamping NG tube resulted in worsening abdominal cramping in her lower abdomen while clamped and apparently refused to have her NG tube pulled. She reports her abdominal pain and cramping is much better today; + flatus but no bowel movement as of yet. Exam Narrative: General: thin WD/WN female in NAD Heart: normal S1 and S2; no rub Lungs: clear to auscultation Abdomen: soft, mild TTP, nondistended, positive bowel sounds Extremities: no cyanosis or clubbing; no edema Skin: warm and intact Objective Data Vital Signs Vital Signs: Vital Signs Temp Pulse Resp BP Pulse Ox O2 Del Method 06/27/23 14:00 98.7 F 60 16 196/48 H 98 06/27/23 13:21 98 Room Air 06/27/23 08:00 Room Air 06/27/23 09:15 72 06/27/23 06:37 173/64 H 06/27/23 06:08 98.7 F 63 17 195/56 H 98 06/27/23 04:00 66 06/27/23 00:00 68 06/26/23 20:00 Room Air 06/26/23 20:00 60 06/26/23 22:50 97.0 F L 61 20 181/59 H 98 06/26/23 18:48 67 162/81 H 06/26/23 18:45 67 186/86 H 06/26/23 18:57 97.4 F L 63 18 203/76 H Intake/Output Intake/Output: Intake & Output 06/24/23 06/25/23 06/26/23 06/27/23 23:59 23:59 23:59 23:59 Intake Total 1500 560 Output Total 1400 200 150 Balance 100 -200 410 Meds/Results Medications: Active Medications Generic Name Dose Route Start Last Admin Trade Name Freq PRN Reason Stop Dose Admin Carvedilol 6.25 mg 06/26/23 17:00 06/27/23 17:37 Carvedilol 6.25 Mg Tablet PO 6.25 mg BID ANDRÉS Administration Clonazepam 1 mg 06/27/23 18:28 Clonazepam (*Crx) 0.5 Mg Tablet PO BID PRN Anxiety Furosemide 40 mg 06/26/23 17:00 06/27/23 17:36 Furosemide 40 Mg Tablet PO 40 mg BID ANDRÉS Administration Gabapentin 300 mg 06/26/23 21:00 06/26/23 20:15 Gabapentin 300 Mg Capsule PO 300 mg HS ANDRÉS Administration Guaifenesin 600 mg 06/27/23 21:00 Guaifenesin 12 Hr 600 Mg Tabcr PO Q12HR ANDRÉS Guaifenesin/Dextromethorphan 10 ml 06/27/23 14:45 Guaifenesin/Dextromethorphan 10 Ml Udc PO Q4H PRN Cough Heparin Sodium (Porcine) 5,000 units 06/25/23 21:00 06/27/23 09:13 Heparin Sodium 5,000 Units/Ml Vial SUB-Q 5,000 units Q12HR ANDRÉS Administration Hydralazine HCl 10 mg 06/25/23 15:57 06/27/23 05:56 Hydralazine Hcl 20 Mg/Ml Vial IV PUSH 10 mg Q6H PRN
--- NOTE | 2023-06-27 14:09 | P.PNIM_ITS ---
Progress Note: A&P Assessment and Plan (1) Small bowel obstruction: Code(s): K56.609 - Unspecified intestinal obstruction, unspecified as to partial versus complete obstruction Status: Acute Assessment and Plan: 06/26/23: * Patient has had multiple abdominal surgeries and prior small-bowel obstructions. * Conservative treatment with NG tube decompression and bowel rest. * Avoid over-hydration as she has on dialysis. * Analgesics and antiemetics are available as needed. * Continue serial abdominal exams and imaging. * General surgery consulted. * NG tube clamped and clear liquids at dinner. 06/27/23: * Continue with conservative management. * We will clamp NG tube today and start clear liquid see how she tolerates. * General surgery following. (2) Mesenteric mass: Code(s): K63.89 - Other specified diseases of intestine Status: Acute Assessment and Plan: 06/26/23: * Small central mesenteric mass appears unchanged from CT in November 2022. * May need outpatient monitoring. 06/27/23: * Of note (3) End-stage renal disease on hemodialysis: Code(s): N18.6 - End stage renal disease; Z99.2 - Dependence on renal dialysis Status: Chronic Assessment and Plan: 06/26/23: * Patient has dialysis on Sunday, Sunday, Sunday. * Stable volume status. * No acute electrolyte abnormalities. * Nephrology consulted. 06/27/23: * Patient had HD today, no UF removal * BUN 22, creatinine 2.9, potassium 4.0 * Nephrology following * has right chest port a cath (4) Hypercalcemia: Code(s): E83.52 - Hypercalcemia Status: Acute Assessment and Plan: 06/26/23: * Has not historically had an issue with hypercalcemia. * Nephrology is following. * Check parathyroid and phosphorus. * Repeat calcium in a.m. 06/27/23: * Calcium level 9.6 * Phosphorus 4.9 * Continue to trend labs (5) Essential hypertension: Code(s): I10 - Essential (primary) hypertension Status: Chronic Assessment and Plan: 06/26/23: * Blood pressures have fluctuated from the 120s to 170 systolic, in part due to pain. * Home medications restarted. * Continue to monitor blood pressures closely. 06/27/23: * Blood pressures ranging 173/64 to 196/48 * Continue with home medication for blood pressure control * Continue with hydralazine 10 mg IV push q.6 hour p.r.n. for systolic greater than 165 (6) Anxiety: Code(s): F41.9 - Anxiety disorder, unspecified Status: Acute Assessment and Plan: 06/26/23: * Home dose of clonazepam 1 mg as needed for anxiety. 06/27/23: * Will increase clonazepam to 1 mg twice a day as needed for anxiety. Time Spent With Patient Time with patient: Greater than 35 minutes Subjective Date/time seen: 06/27/23 14:09 Interval history: This is a 68 year old female who presented to the hospital on 06/25/2023 with complaints of abdominal pain. Patient has had history of multiple abdominal surgeries and bowel obstructions in the past. Workup in the hospital included a CT scan of the abdomen and pelvis which showed findings consistent with small-bowel obstruction, a suspected small central mesenteric mass was also present and unchanged from previous imaging. Patient also had a KUB done which showed dilated small bowel, consistent with a small-bowel obstruction in the NG tube was in the stomach. Patient had an NG tube inserted and placed to lo
--- NOTE | 2023-06-27 14:09 | PM.IMPN ---
Progress Note: A&P Assessment and Plan (1) Small bowel obstruction: Code(s): K56.609 - Unspecified intestinal obstruction, unspecified as to partial versus complete obstruction Status: Acute Assessment and Plan: 06/26/23: Patient has had multiple abdominal surgeries and prior small-bowel obstructions. Conservative treatment with NG tube decompression and bowel rest. Avoid over-hydration as she has on dialysis. Analgesics and antiemetics are available as needed. Continue serial abdominal exams and imaging. General surgery consulted. NG tube clamped and clear liquids at dinner. 06/27/23: Continue with conservative management. We will clamp NG tube today and start clear liquid see how she tolerates. General surgery following. (2) Mesenteric mass: Code(s): K63.89 - Other specified diseases of intestine Status: Acute Assessment and Plan: 06/26/23: Small central mesenteric mass appears unchanged from CT in November 2022. May need outpatient monitoring. 06/27/23: Of note (3) End-stage renal disease on hemodialysis: Code(s): N18.6 - End stage renal disease; Z99.2 - Dependence on renal dialysis Status: Chronic Assessment and Plan: 06/26/23: Patient has dialysis on Sunday, Sunday, Sunday. Stable volume status. No acute electrolyte abnormalities. Nephrology consulted. 06/27/23: Patient had HD today, no UF removal BUN 22, creatinine 2.9, potassium 4.0 Nephrology following has right chest port a cath (4) Hypercalcemia: Code(s): E83.52 - Hypercalcemia Status: Acute Assessment and Plan: 06/26/23: Has not historically had an issue with hypercalcemia. Nephrology is following. Check parathyroid and phosphorus. Repeat calcium in a.m. 06/27/23: Calcium level 9.6 Phosphorus 4.9 Continue to trend labs (5) Essential hypertension: Code(s): I10 - Essential (primary) hypertension Status: Chronic Assessment and Plan: 06/26/23: Blood pressures have fluctuated from the 120s to 170 systolic, in part due to pain. Home medications restarted. Continue to monitor blood pressures closely. 06/27/23: Blood pressures ranging 173/64 to 196/48 Continue with home medication for blood pressure control Continue with hydralazine 10 mg IV push q.6 hour p.r.n. for systolic greater than 165 (6) Anxiety: Code(s): F41.9 - Anxiety disorder, unspecified Status: Acute Assessment and Plan: 06/26/23: Home dose of clonazepam 1 mg as needed for anxiety. 06/27/23: Will increase clonazepam to 1 mg twice a day as needed for anxiety. Time Spent With Patient Time with patient: Greater than 35 minutes Subjective Date/time seen: 06/27/23 14:09 Interval history: This is a 68 year old female who presented to the hospital on 06/25/2023 with complaints of abdominal pain. Patient has had history of multiple abdominal surgeries and bowel obstructions in the past. Workup in the hospital included a CT scan of the abdomen and pelvis which showed findings consistent with small-bowel obstruction, a suspected small central mesenteric mass was also present and unchanged from previous imaging. Patient also had a KUB done which showed dilated small bowel, consistent with a small-bowel obstruction in the NG tube was in the stomach. Patient had an NG tube inserted and placed to low intermittent suction with high-output the 1st day. General surgery was consulted and is following. Patient also has end-stage renal disease on HD Sunday. Nephrology was consulted as well. On examination today patient is alert and oriented x4 lying in the bed. Vital signs are stable, she is afebrile, she is currently on room air. She denies any pain or discomfort at this time. She also denies any fevers, chills, nausea, vomiting, diarrhea, shortness of breath, chest pain, abdominal pain. She does
[2023-06-27] MEDS: guaiFENesin 12 HR 600 MG TABCR PO (20:09)
[2023-06-27] MEDS: GABAPENTIN 300 MG CAPSULE PO (20:09)
[2023-06-27] MEDS: clonazePAM (*CRX) 0.5 MG TABLET 1 MG PO (20:13)
[2023-06-27] MEDS: guaiFENesin/DEXTROMETHORPHAN 10 ML UDC PO (20:13)
[2023-06-28] VITALS (7 sets, daily range): BP systolic 148–173; BP diastolic 51–58; PULSE 53–60; RESP 14–17; TEMP 36.6–37.1; O2SAT 95–99
[2023-06-28] MEDS: guaiFENesin/DEXTROMETHORPHAN 10 ML UDC PO ×3 (00:33→17:18)
[2023-06-28 05:48] LABS: Basophils Absolute Auto 0.1 K/mm3 (0.0-0.1); Eosinophils Absolute Auto 0.3 K/mm3 (0-0.3); Eosinophils Percent Auto 4.3 % (0-4.4); Hematocrit 32.3 % (37.0-47.0); Hemoglobin 10.1 g/dL (12.0-15.0); Immature Granulocyte Absolute 0.02 K/mm3 (0.00-0.031); Immature Granulocyte Percent A 0.3 % (0-0.5); Lymphocytes Absolute Auto 1.45 K/mm3 (0.9-3.2); Mean Corpuscular HGB Conc 31.3 g/dl (32-36); Mean Corpuscular Volume 95.8 fl (80-100); Mean Platelet Volume 10.6 fl (7.4-10.4); Monocytes Absolute Auto 0.9 K/mm3 (0.1-0.6); Monocytes Percent Auto 11.4 % (2.6-8.5); Neutrophils Absolute Auto 4.9 K/mm3 (1.3-6.7); Platelet Count Result 174 k/mm3 (150-375); Red Blood Count 3.37 M/mm3 (4.2-5.4); Red Cell Distribution Width 13.3 % (11.5-14.5); White Blood Count 7.7 K/mm3 (4.5-10.0)
[2023-06-28 06:01] LABS: Alanine Aminotransferase 10 U/L (6-35); Albumin Level 3.7 g/dL (3.5-5.1); Alkaline Phosphatase 61 U/L (38-126); Anion Gap 11 mmol/L (8-16); Aspartate Amino Transferase 21 U/L (14-36); Bilirubin,Total 0.8 mg/dL (0.2-1.3); Blood Urea Nitrogen 31 mg/dL (7-17); Calcium 9.7 mg/dL (8.4-10.2); Carbon Dioxide 27 mmol/L (22-30); Chloride 98 mmol/L (98-107); Estimated CRCL calculation 10 ml/min; Estimated Glomerular Filt Rate 12; Glucose 93 mg/dL (65-110); Phosphorus 3.4 mg/dL (2.5-4.5); Potassium 3.7 mmol/L (3.4-5.0); Sodium 136 mmol/L (137-145)
[2023-06-28] MEDS: NIFEdipine 30 MG TAB.ER.24 60 MG PO (08:29)
[2023-06-28] MEDS: guaiFENesin 12 HR 600 MG TABCR PO ×2 (08:29→20:33)
[2023-06-28] MEDS: FUROSEMIDE 40 MG TABLET PO ×2 (08:29→17:18)
[2023-06-28] MEDS: LOSARTAN POTASSIUM 25 MG TABLET PO (08:30)
[2023-06-28] MEDS: hydrALAZINE HCL 25 MG TABLET PO ×2 (08:30→17:18)
[2023-06-28] MEDS: HEPARIN SODIUM 5,000 UNITS/ML VIAL 5000 UNITS SUB-Q (08:32)
[2023-06-28] MEDS: carvediloL 6.25 MG TABLET PO ×2 (08:33→17:20)
--- NOTE | 2023-06-28 11:25 | P.PNIM_ITS ---
Progress Note: A&P Assessment and Plan (1) Small bowel obstruction: Code(s): K56.609 - Unspecified intestinal obstruction, unspecified as to partial versus complete obstruction Status: Acute Assessment and Plan: 06/26/23: * Patient has had multiple abdominal surgeries and prior small-bowel obstructions. * Conservative treatment with NG tube decompression and bowel rest. * Avoid over-hydration as she has on dialysis. * Analgesics and antiemetics are available as needed. * Continue serial abdominal exams and imaging. * General surgery consulted. * NG tube clamped and clear liquids at dinner. 06/27/23: * Continue with conservative management. * We will clamp NG tube today and start clear liquid see how she tolerates. * General surgery following. 06/28/23: * NG tube removed. Patient tolerating clears. * Will advance diet today and see how she tolerates. (2) Mesenteric mass: Code(s): K63.89 - Other specified diseases of intestine Status: Acute Assessment and Plan: 06/26/23: * Small central mesenteric mass appears unchanged from CT in November 2022. * May need outpatient monitoring. 06/27/23: * Of note (3) End-stage renal disease on hemodialysis: Code(s): N18.6 - End stage renal disease; Z99.2 - Dependence on renal dialysis Status: Chronic Assessment and Plan: 06/26/23: * Patient has dialysis on Sunday, Sunday, Sunday. * Stable volume status. * No acute electrolyte abnormalities. * Nephrology consulted. 06/27/23: * Patient had HD today, no UF removal * BUN 22, creatinine 2.9, potassium 4.0 * Nephrology following * has right chest port a cath 06/28/23: * Plan for HD tomorrow * BUN 31, Creatinine 3.70, K+ 3.7 * Nephrology following (4) Essential hypertension: Code(s): I10 - Essential (primary) hypertension Status: Chronic Assessment and Plan: 06/26/23: * Blood pressures have fluctuated from the 120s to 170 systolic, in part due to pain. * Home medications restarted. * Continue to monitor blood pressures closely. 06/27/23: * Blood pressures ranging 173/64 to 196/48 * Continue with home medication for blood pressure control * Continue with hydralazine 10 mg IV push q.6 hour p.r.n. for systolic greater than 165 06/28/23: * Blood pressures ranging 163/41-173/51 * Continue with current treatment plan (5) Anxiety: Code(s): F41.9 - Anxiety disorder, unspecified Status: Acute Assessment and Plan: 06/26/23: * Home dose of clonazepam 1 mg as needed for anxiety. 06/27/23: * Will increase clonazepam to 1 mg twice a day as needed for anxiety. 06/28/23: * No change to current treatment plan Time Spent With Patient Time with patient: 25 - 35 minutes Subjective Date/time seen: 06/28/23 11:25 Interval history: 06/27/23: This is a 68 year old female who presented to the hospital on 06/25/2023 with complaints of abdominal pain. Patient has had history of multiple abdominal surgeries and bowel obstructions in the past. Workup in the hospital included a CT scan of the abdomen and pelvis which showed findings consistent with small- bowel obstruction, a suspected small central mesenteric mass was also present and unchanged from previous imaging. Patient also had a KUB done which showed dilated small bowel, consistent with a small-bowel obstruction in the NG tube was in the stomach. Patient had an NG tube inserted and placed to
--- NOTE | 2023-06-28 11:25 | PM.IMPN ---
Progress Note: A&P Assessment and Plan (1) Small bowel obstruction: Code(s): K56.609 - Unspecified intestinal obstruction, unspecified as to partial versus complete obstruction Status: Acute Assessment and Plan: 06/26/23: Patient has had multiple abdominal surgeries and prior small-bowel obstructions. Conservative treatment with NG tube decompression and bowel rest. Avoid over-hydration as she has on dialysis. Analgesics and antiemetics are available as needed. Continue serial abdominal exams and imaging. General surgery consulted. NG tube clamped and clear liquids at dinner. 06/27/23: Continue with conservative management. We will clamp NG tube today and start clear liquid see how she tolerates. General surgery following. 06/28/23: NG tube removed. Patient tolerating clears. Will advance diet today and see how she tolerates. (2) Mesenteric mass: Code(s): K63.89 - Other specified diseases of intestine Status: Acute Assessment and Plan: 06/26/23: Small central mesenteric mass appears unchanged from CT in November 2022. May need outpatient monitoring. 06/27/23: Of note (3) End-stage renal disease on hemodialysis: Code(s): N18.6 - End stage renal disease; Z99.2 - Dependence on renal dialysis Status: Chronic Assessment and Plan: 06/26/23: Patient has dialysis on Sunday, Sunday, Sunday. Stable volume status. No acute electrolyte abnormalities. Nephrology consulted. 06/27/23: Patient had HD today, no UF removal BUN 22, creatinine 2.9, potassium 4.0 Nephrology following has right chest port a cath 06/28/23: Plan for HD tomorrow BUN 31, Creatinine 3.70, K+ 3.7 Nephrology following (4) Essential hypertension: Code(s): I10 - Essential (primary) hypertension Status: Chronic Assessment and Plan: 06/26/23: Blood pressures have fluctuated from the 120s to 170 systolic, in part due to pain. Home medications restarted. Continue to monitor blood pressures closely. 06/27/23: Blood pressures ranging 173/64 to 196/48 Continue with home medication for blood pressure control Continue with hydralazine 10 mg IV push q.6 hour p.r.n. for systolic greater than 165 06/28/23: Blood pressures ranging 163/41-173/51 Continue with current treatment plan (5) Anxiety: Code(s): F41.9 - Anxiety disorder, unspecified Status: Acute Assessment and Plan: 06/26/23: Home dose of clonazepam 1 mg as needed for anxiety. 06/27/23: Will increase clonazepam to 1 mg twice a day as needed for anxiety. 06/28/23: No change to current treatment plan Time Spent With Patient Time with patient: 25 - 35 minutes Subjective Date/time seen: 06/28/23 11:25 Interval history: 06/27/23: This is a 68 year old female who presented to the hospital on 06/25/2023 with complaints of abdominal pain. Patient has had history of multiple abdominal surgeries and bowel obstructions in the past. Workup in the hospital included a CT scan of the abdomen and pelvis which showed findings consistent with small-bowel obstruction, a suspected small central mesenteric mass was also present and unchanged from previous imaging. Patient also had a KUB done which showed dilated small bowel, consistent with a small-bowel obstruction in the NG tube was in the stomach. Patient had an NG tube inserted and placed to low intermittent suction with high-output the 1st day. General surgery was consulted and is following. Patient also has end-stage renal disease on HD Sunday. Nephrology was consulted as well. On examination today patient is alert and oriented x4 lying in the bed. Vital signs are stable, she is afebrile, she is currently on room air. She denies any pain or discomfort at this time. She also denies any fevers, chills, nausea, vomiting, diarrhea, shortness of breath, chest pain, abdominal pain. She
--- NOTE | 2023-06-28 12:59 | PM.PNGS ---
Progress Note: A&P Assessment and Plan (1) Small bowel obstruction: Code(s): K56.609 - Unspecified intestinal obstruction, unspecified as to partial versus complete obstruction Status: Acute Assessment and Plan: Resolving. Bowel function returned. Advance diet as tolerated to a renal diet. Okay to discharge from a surgical standpoint once tolerating a solid diet. F/u only as needed. (2) Mesenteric mass: Code(s): K63.89 - Other specified diseases of intestine Status: Acute (3) End-stage renal disease on hemodialysis: Code(s): N18.6 - End stage renal disease; Z99.2 - Dependence on renal dialysis Status: Chronic Assessment and Plan: Nephrology following Plan I have discussed the patient's case and plan of care with Dr. Webb. Subjective Subjective Date/Time Seen: 06/28/23 09:59 Patient reports: no new complaints, feels better, pain is less, tolerating liquids well, flatus and bowel movement Interval history: Patient feeling much better today. No abdominal pain or bloating. Denies nausea or vomiting. Had a BM last night. Exam Const: General: comfortable and no acute distress GI: Inspection: non-distended GI Palp: Yes Soft to palpation, No Tenderness to palpation present (GI) and No Guarding due to palpation present (GI) Auscultation: normal bowel sounds Objective Data Vital Signs Vital Signs: Vital Signs - 24 hr 06/27/23 13:21 06/27/23 14:00 06/27/23 16:00 Temperature 98.7 F Pulse Rate 60 66 Respiratory Rate 16 Blood Pressure 196/48 H Pulse Oximetry 98 98 Oxygen Delivery Room Air 06/27/23 17:37 06/27/23 20:00 06/27/23 22:00 Temperature 98.4 F Pulse Rate 65 59 L 56 L Respiratory Rate 18 Blood Pressure 163/41 H Pulse Oximetry 97 Oxygen Delivery 06/28/23 00:00 06/28/23 06:00 06/28/23 08:33 Temperature 98.7 F Pulse Rate 53 L 58 L 54 L Respiratory Rate 17 Blood Pressure 173/51 H Pulse Oximetry 97 Oxygen Delivery 06/28/23 08:00 Temperature Pulse Rate 54 L Respiratory Rate 17 Blood Pressure Pulse Oximetry 97 Oxygen Delivery Room Air Intake/Output Intake/Output: Intake & Output 06/25/23 06/26/23 06/27/23 11/30/23 23:59 23:59 23:59 23:59 Intake Total 1500 680 240 Output Total 1400 200 800 Balance 100 -200 -120 240 Meds/Results Medications: Active Medications Generic Name Dose Route Start Last Admin Trade Name Sherrie PRN Reason Stop Dose Admin Carvedilol 6.25 mg 06/26/23 17:00 06/28/23 08:33 Carvedilol 6.25 Mg Tablet PO 6.25 mg BID ANDRÉS Administration Clonazepam 1 mg 06/27/23 18:28 06/27/23 20:13 Clonazepam (*Crx) 0.5 Mg Tablet PO 1 mg BID PRN Administration Anxiety Furosemide 40 mg 06/26/23 17:00 06/28/23 08:29 Furosemide 40 Mg Tablet PO 40 mg BID ANDRÉS Administration Gabapentin 300 mg 06/26/23 21:00 06/27/23 20:09 Gabapentin 300 Mg Capsule PO 300 mg HS ANDRÉS Administration Guaifenesin 600 mg 06/27/23 21:00 06/28/23 08:29 Guaifenesin 12 Hr 600 Mg Tabcr PO 600 mg Q12HR ANDRÉS Administration Guaifenesin/Dextromethorphan 10 ml 06/27/23 14:45 06/28/23 08:29 Guaifenesin/Dextromethorphan 10 Ml Udc PO 10 ml Q4H PRN Administration Cough Heparin Sodium (Porcine) 5,000 units 06/25/23 21:00 06/28/23 08:32 Heparin Sodium 5,000 Units/Ml Vial SUB-Q 5,000 units Q12HR ANDRÉS Administration Hydralazine HCl 10 mg 06/25/23 15:57 06/27/23 05:56 Hydralazine Hcl 20 Mg/Ml Vial IV PUSH 10 mg Q6H PRN Administration SBP > 165 or DBP > 105 Hydralazine HCl 25 mg 06/26/23 17:00 06/28/23 08:30 Hydralazine Hcl 25 Mg Tablet PO 25 mg BID ANDRÉS Administration Albumin Human 50 mls @ 999 mls/hr 06/26/23 06:49 Albutein IVPB 07/26/23 06:48 Q10M PRN HYPOTENSION Losartan Potassium 25 mg 06/27/23 09:00 06/28/23 08:30 Losartan Potassium 25 Mg Tablet PO 25 mg DAILY ANDRÉS Administration Nifed
--- NOTE | 2023-06-28 15:36 | PM.PNNEP ---
Progress Note: A&P Assessment and Plan (1) End stage renal disease: Code(s): N18.6 - End stage renal disease Status: Chronic Assessment and Plan: plan next HD session Sunday or Sunday normally does HD on Mondays and Fridays will eventually transition back to this schedule follow electrolytes, volume status, and clearance (2) Small bowel obstruction: Code(s): K56.609 - Unspecified intestinal obstruction, unspecified as to partial versus complete obstruction Status: Acute Assessment and Plan: as evidenced by history and imaging studies s/p NG tube placement for decompression Surgery following NG tube out -- diet being advanced continue current therapy (3) Essential hypertension: Code(s): I10 - Essential (primary) hypertension Status: Chronic Assessment and Plan: noted fluctuations since admission suspect pain issues playing a role along with inability to take po BP medications PRN IV medications (i.e. hydralazine or labetalol) and slowly restart oral BP medications follow trend of hemodynamics (4) Mesenteric mass: Code(s): K63.89 - Other specified diseases of intestine Status: Acute Assessment and Plan: noted on previous CT scan done on 11/26/22 appears unchanged Will continue to follow. Subjective Date/time seen: 06/28/23 15:36 Interval history: Follow-up for end stage renal disease on hemodialysis. NG tube is out and she appears to tolerating oral intake; passing flatus and did have a bowel movement as well; no other acute issues or problems voiced; no apparent distress. Exam Narrative: General: thin WD/WN female in NAD Heart: normal S1 and S2; no rub Lungs: clear to auscultation Abdomen: soft, mild TTP, nondistended, positive bowel sounds Extremities: no cyanosis or clubbing; no edema Skin: no rash Objective Data Vital Signs Vital Signs: Vital Signs Temp Pulse Resp BP Pulse Ox O2 Del Method 06/28/23 14:00 97.9 F 60 16 148/53 H 99 06/28/23 08:00 54 L 17 97 Room Air 06/28/23 08:33 54 L 06/28/23 06:00 98.7 F 58 L 17 173/51 H 97 06/28/23 00:00 53 L 06/27/23 22:00 98.4 F 56 L 18 163/41 H 97 06/27/23 20:00 59 L Intake/Output Intake/Output: Intake & Output 06/25/23 06/26/23 06/27/23 06/28/23 23:59 23:59 23:59 23:59 Intake Total 1500 680 600 Output Total 1400 200 800 Balance 100 -200 -120 600 Meds/Results Medications: Active Medications Generic Name Dose Route Start Last Admin Trade Name Freq PRN Reason Stop Dose Admin Carvedilol 6.25 mg 06/26/23 17:00 06/28/23 17:20 Carvedilol 6.25 Mg Tablet PO 6.25 mg BID ANDRÉS Administration Clonazepam 1 mg 06/27/23 18:28 06/27/23 20:13 Clonazepam (*Crx) 0.5 Mg Tablet PO 1 mg BID PRN Administration Anxiety Furosemide 40 mg 06/26/23 17:00 06/28/23 17:18 Furosemide 40 Mg Tablet PO 40 mg BID ANDRÉS Administration Gabapentin 300 mg 06/26/23 21:00 06/27/23 20:09 Gabapentin 300 Mg Capsule PO 300 mg HS ANDRÉS Administration Guaifenesin 600 mg 06/27/23 21:00 06/28/23 08:29 Guaifenesin 12 Hr 600 Mg Tabcr PO 600 mg Q12HR ANDRÉS Administration Guaifenesin/Dextromethorphan 10 ml 06/27/23 14:45 06/28/23 17:18 Guaifenesin/Dextromethorphan 10 Ml Udc PO 10 ml Q4H PRN Administration Cough Heparin Sodium (Porcine) 5,000 units 06/25/23 21:00 06/28/23 08:32 Heparin Sodium 5,000 Units/Ml Vial SUB-Q 5,000 units Q12HR ANDRÉS Administration Hydralazine HCl 10 mg 06/25/23 15:57 06/27/23 05:56 Hydralazine Hcl 20 Mg/Ml Vial IV PUSH 10 mg Q6H PRN Administration SBP > 165 or DBP > 105 Hydralazine HCl 25 mg 06/26/23 17:00 06/28/23 17:18 Hydralazine Hcl 25 Mg Tablet PO 25 mg BID ANDRÉS Administration Albumin Human 50 mls @ 999 mls/hr 06/26/23 06:49 Albutein IVPB 07/26/23 06:48 Q10M PRN HYPOT
--- NOTE | 2023-06-28 20:07 | PC.NURSE ---
Patient is refusing heparin injection at this time. Patient educated on importance of taking the medication as scheduled while in the hospital and risks of not taking this medication. Patient verbalizes understanding.
[2023-06-28] MEDS: clonazePAM (*CRX) 0.5 MG TABLET 1 MG PO (20:33)
[2023-06-28] MEDS: GABAPENTIN 300 MG CAPSULE PO (20:33)
[2023-06-28] MEDS: CALCIUM CARBONATE (TUMS) 500 MG (200 MG ELEMENTAL) PO (20:33)
[2023-06-29] VITALS (22 sets, daily range): BP systolic 120–181; BP diastolic 51–87; PULSE 53–65; RESP 16–18; TEMP 36.6–37.1; O2SAT 93–94
[2023-06-29] MEDS: MORPHINE SULFATE (*CRX) 4 MG/ML INJ 2 MG IV PUSH (00:35)
[2023-06-29] MEDS: ACETAMINOPHEN 500 MG TABLET PO (00:35)
[2023-06-29] MEDS: ONDANSETRON INJ 4 MG/2 ML VIAL IV PUSH (05:49)
[2023-06-29 05:57] LABS: Basophils Absolute Auto 0.1 K/mm3 (0.0-0.1); Basophils Percent Auto 0.5 % (0.2-1.2); Eosinophils Absolute Auto 0.3 K/mm3 (0-0.3); Eosinophils Percent Auto 3.1 % (0-4.4); Hematocrit 34.1 % (37.0-47.0); Hemoglobin 10.9 g/dL (12.0-15.0); Immature Granulocyte Absolute 0.06 K/mm3 (0.00-0.031); Immature Granulocyte Percent A 0.6 % (0-0.5); Lymphocytes Absolute Auto 0.59 K/mm3 (0.9-3.2); Mean Corpuscular Hemoglobin 29.6 pg (26-34); Mean Corpuscular Volume 92.7 fl (80-100); Mean Platelet Volume 10.5 fl (7.4-10.4); Monocytes Percent Auto 10.4 % (2.6-8.5); Neutrophils Absolute Auto 7.8 K/mm3 (1.3-6.7); Neutrophils Percent Auto 79.4 % (45.5-73.1); Platelet Count Result 206 k/mm3 (150-375); Red Blood Count 3.68 M/mm3 (4.2-5.4); Red Cell Distribution Width 12.9 % (11.5-14.5); White Blood Count 9.8 K/mm3 (4.5-10.0)
[2023-06-29 06:01] LABS: Alanine Aminotransferase 28 U/L (6-35); Alkaline Phosphatase 74 U/L (38-126); Anion Gap 11 mmol/L (8-16); Aspartate Amino Transferase 50 U/L (14-36); Bilirubin,Total 0.8 mg/dL (0.2-1.3); Blood Urea Nitrogen 33 mg/dL (7-17); Calcium 9.9 mg/dL (8.4-10.2); Carbon Dioxide 31 mmol/L (22-30); Chloride 93 mmol/L (98-107); Estimated CRCL calculation 9 ml/min; Estimated Glomerular Filt Rate 10; Glucose 110 mg/dL (65-110); Potassium 3.7 mmol/L (3.4-5.0); Sodium 135 mmol/L (137-145)
[2023-06-29] MEDS: CALCIUM CARBONATE (TUMS) 500 MG (200 MG ELEMENTAL) PO (06:32)
[2023-06-29] MEDS: hydrALAZINE HCL 20 MG/ML VIAL 10 MG IV PUSH (06:38)
[2023-06-29] MEDS: hydrALAZINE HCL 25 MG TABLET PO ×2 (09:37→17:50)
[2023-06-29] MEDS: NIFEdipine 30 MG TAB.ER.24 60 MG PO (09:37)
[2023-06-29] MEDS: carvediloL 6.25 MG TABLET PO ×2 (09:37→17:50)
--- NOTE | 2023-06-29 10:01 | PM.DS ---
DS: Discharge Diagnosis Discharge Diagnosis (1) Small bowel obstruction: Code(s): K56.609 - Unspecified intestinal obstruction, unspecified as to partial versus complete obstruction Status: Acute (2) Mesenteric mass: Code(s): K63.89 - Other specified diseases of intestine Status: Acute (3) End-stage renal disease on hemodialysis: Code(s): N18.6 - End stage renal disease; Z99.2 - Dependence on renal dialysis Status: Chronic (4) Essential hypertension: Code(s): I10 - Essential (primary) hypertension Status: Chronic (5) Anxiety: Code(s): F41.9 - Anxiety disorder, unspecified Status: Acute DS: Summary Hospital Course Reason for hospitalization: Small bowel obstruction Hospital Course: This is a 68 year old female who presents to the hospital on Status at Discharge Cognitive/behavioral status at discharge: Alert and oriented x4 Functional status at discharge: independent ambulation Overall status at discharge: patient is progressing back to baseline Time Spent with Patient Time attestation: Total time spent providing and/or coordinating discharge services: Exam Narrative: General: In no acute distress, well nourished Head: atraumatic, no encephalopathy Eyes: EOMI, PERRLA, sclera clear ENT: moist mucous membranes, nasal passages clear Neck: supple, no JVD, no adenopathy, trachea midline Cardiac: Normal S1 and S2. No murmur, gallops or friction rubs, peripheral pulses intact. Respiratory: Lungs clear to auscultation, no adventitious lung sounds Gastrointestinal: soft, non-distended, non-tender, normoactive bowel sounds, she is passing flatus, NG tube removed. BM x1 liquid stool : voiding without difficulty. Extremities: moves all extremities well, no edema, good ROM, strength 5/5 Skin: clean, dry, intact. No wounds or lesions. Neuro: Alert and oriented x4, cranial nerves intact, no neuro deficits. Psych: normal mood, normal affect, interactive DS: Data Data Completed and Pending Completed studies during hospitalization: Abdomen/Pelvis CT Abdomen X-ray x2 Pending studies at discharge: None Labs on day of discharge: Labs from last 24 hours 06/29/23 05:40 WBC 9.8 RBC 3.68 L Hgb 10.9 L Hct 34.1 L MCV 92.7 MCH 29.6 MCHC 32.0 RDW 12.9 Plt Count 206 MPV 10.5 H Immature Gran % (Auto) 0.6 H Neut % (Auto) 79.4 H Lymph % (Auto) 6.0 L Weakley % (Auto) 10.4 H Eos % (Auto) 3.1 Baso % (Auto) 0.5 Lymph # (Auto) 0.59 L Weakley # (Auto) 1.0 H Eos # (Auto) 0.3 Baso # (Auto) 0.1 Abs Immat Gran (auto) 0.06 H Absolute Neuts (auto) 7.8 H Absolute Nucleated RBC 0.0 Nucleated RBC % 0.0 Sodium 135 L Potassium 3.7 Chloride 93 L Carbon Dioxide 31 H Anion Gap 11 BUN 33 H Creatinine 4.40 H Estim Creat Clear Calc 9 Estimated GFR 10 L Glucose 110 Calcium 9.9 Total Bilirubin 0.8 AST 50 H ALT 28 Alkaline Phosphatase 74 Total Protein 7.0 Albumin 4.0 Discharge Plan Discharge Attending physician on discharge: Shelley Greer Consulting providers: Nicol Webb; Marzena Limon Discharging Clinician: Juliette Rodriguez Anticipated Discharge Date/Time: 06/29/23 09:59 Patient Disposition: Home, Self-Care Activity: as tolerated Diet: as tolerated Patient Instructions: Bowel Obstruction (DC) Patient Language: Cook Islander Stand Alone Forms: General Discharge Information Follow-up/Referrals: Katherine,Radha Jean-Baptiste MD [Primary Care Provider] - 1 Week Discharge Medications: Continued furosemide 40 mg tablet 40 mg PO BID carvedilol 6.25 mg tablet 6.25 mg PO BID aspirin 325 mg Tablet 325 mg PO DAILY clonazepam 1 mg tablet 1 mg PO DAILY PRN (Reason: Anxiety) losartan 25 mg tablet 25 mg PO DAILY gabapentin 300 mg capsule 300 mg PO HS nifedipine 60 mg tablet extended release 60 mg PO DAILY No Action hydralazine 25 mg tablet 25
[2023-06-29] MEDS: clonazePAM (*CRX) 0.5 MG TABLET 1 MG PO ×2 (11:03→20:45)
--- NOTE | 2023-06-29 12:21 | P.PNIM_ITS ---
Progress Note: A&P Assessment and Plan (1) Small bowel obstruction: Code(s): K56.609 - Unspecified intestinal obstruction, unspecified as to partial versus complete obstruction Status: Acute Assessment and Plan: 06/26/23: * Patient has had multiple abdominal surgeries and prior small-bowel obstructions. * Conservative treatment with NG tube decompression and bowel rest. * Avoid over-hydration as she has on dialysis. * Analgesics and antiemetics are available as needed. * Continue serial abdominal exams and imaging. * General surgery consulted. * NG tube clamped and clear liquids at dinner. 06/27/23: * Continue with conservative management. * We will clamp NG tube today and start clear liquid see how she tolerates. * General surgery following. 06/28/23: * NG tube removed. Patient tolerating clears. * Will advance diet today and see how she tolerates. 06/29/23: * Patient complaining of increased abdominal pain, increased nausea, increased distension of her abdomen today. * Patient has been passing gas, she has had a small bowel movement last night, her bowel sounds are hypoactive currently. * Will back off on her diet again today to a clear liquid diet as tolerated * Continue Zofran for nausea * Encourage ambulation in the halls * Will go ahead and repeat a CT scan of her abdomen pelvis today considering her abdomen is firm and she is more symptomatic today. (2) Mesenteric mass: Code(s): K63.89 - Other specified diseases of intestine Status: Acute Assessment and Plan: 06/26/23: * Small central mesenteric mass appears unchanged from CT in November 2022. * May need outpatient monitoring. 06/27/23: * Of note (3) End-stage renal disease on hemodialysis: Code(s): N18.6 - End stage renal disease; Z99.2 - Dependence on renal dialysis Status: Chronic Assessment and Plan: 06/26/23: * Patient has dialysis on Sunday, Sunday, Sunday. * Stable volume status. * No acute electrolyte abnormalities. * Nephrology consulted. 06/27/23: * Patient had HD today, no UF removal * BUN 22, creatinine 2.9, potassium 4.0 * Nephrology following * has right chest port a cath 06/28/23: * Plan for HD tomorrow * BUN 31, Creatinine 3.70, K+ 3.7 * Nephrology following 06/29/23: * BUN 33, creatinine 4.4, potassium 3.7 * Plan for HD today * Nephrology following (4) Essential hypertension: Code(s): I10 - Essential (primary) hypertension Status: Chronic Assessment and Plan: 06/26/23: * Blood pressures have fluctuated from the 120s to 170 systolic, in part due to pain. * Home medications restarted. * Continue to monitor blood pressures closely. 06/27/23: * Blood pressures ranging 173/64 to 196/48 * Continue with home medication for blood pressure control * Continue with hydralazine 10 mg IV push q.6 hour p.r.n. for systolic greater than 165 06/28/23: * Blood pressures ranging 163/41-173/51 * Continue with current treatment plan 06/29/23: * Continue with current treatment plan (5) Anxiety: Code(s): F41.9 - Anxiety disorder, unspecified Status: Acute Assessment and Plan: 06/26/23: * Home dose of clonazepam 1 mg as needed for anxiety. 06/27/23: * Will increase clonazepam to 1 mg twice a day as needed for anxiety. 06/28/23: * No change to current treatment plan Time Spent With Patient Time with patient: Greater than 35 minutes
--- NOTE | 2023-06-29 12:21 | PM.IMPN ---
Progress Note: A&P Assessment and Plan (1) Small bowel obstruction: Code(s): K56.609 - Unspecified intestinal obstruction, unspecified as to partial versus complete obstruction Status: Acute Assessment and Plan: 06/26/23: Patient has had multiple abdominal surgeries and prior small-bowel obstructions. Conservative treatment with NG tube decompression and bowel rest. Avoid over-hydration as she has on dialysis. Analgesics and antiemetics are available as needed. Continue serial abdominal exams and imaging. General surgery consulted. NG tube clamped and clear liquids at dinner. 06/27/23: Continue with conservative management. We will clamp NG tube today and start clear liquid see how she tolerates. General surgery following. 06/28/23: NG tube removed. Patient tolerating clears. Will advance diet today and see how she tolerates. 06/29/23: Patient complaining of increased abdominal pain, increased nausea, increased distension of her abdomen today. Patient has been passing gas, she has had a small bowel movement last night, her bowel sounds are hypoactive currently. Will back off on her diet again today to a clear liquid diet as tolerated Continue Zofran for nausea Encourage ambulation in the halls Will go ahead and repeat a CT scan of her abdomen pelvis today considering her abdomen is firm and she is more symptomatic today. (2) Mesenteric mass: Code(s): K63.89 - Other specified diseases of intestine Status: Acute Assessment and Plan: 06/26/23: Small central mesenteric mass appears unchanged from CT in November 2022. May need outpatient monitoring. 06/27/23: Of note (3) End-stage renal disease on hemodialysis: Code(s): N18.6 - End stage renal disease; Z99.2 - Dependence on renal dialysis Status: Chronic Assessment and Plan: 06/26/23: Patient has dialysis on Sunday, Sunday, Sunday. Stable volume status. No acute electrolyte abnormalities. Nephrology consulted. 06/27/23: Patient had HD today, no UF removal BUN 22, creatinine 2.9, potassium 4.0 Nephrology following has right chest port a cath 06/28/23: Plan for HD tomorrow BUN 31, Creatinine 3.70, K+ 3.7 Nephrology following 06/29/23: BUN 33, creatinine 4.4, potassium 3.7 Plan for HD today Nephrology following (4) Essential hypertension: Code(s): I10 - Essential (primary) hypertension Status: Chronic Assessment and Plan: 06/26/23: Blood pressures have fluctuated from the 120s to 170 systolic, in part due to pain. Home medications restarted. Continue to monitor blood pressures closely. 06/27/23: Blood pressures ranging 173/64 to 196/48 Continue with home medication for blood pressure control Continue with hydralazine 10 mg IV push q.6 hour p.r.n. for systolic greater than 165 06/28/23: Blood pressures ranging 163/41-173/51 Continue with current treatment plan 06/29/23: Continue with current treatment plan (5) Anxiety: Code(s): F41.9 - Anxiety disorder, unspecified Status: Acute Assessment and Plan: 06/26/23: Home dose of clonazepam 1 mg as needed for anxiety. 06/27/23: Will increase clonazepam to 1 mg twice a day as needed for anxiety. 06/28/23: No change to current treatment plan Time Spent With Patient Time with patient: Greater than 35 minutes Subjective Date/time seen: 06/29/23 12:21 Interval history: 06/27/23: This is a 68 year old female who presented to the hospital on 06/25/2023 with complaints of abdominal pain. Patient has had history of multiple abdominal surgeries and bowel obstructions in the past. Workup in the hospital included a CT scan of the abdomen and pelvis which showed findings consistent with small-bowel obstruction, a suspected small central mesenteric mass was also present and unchanged from previous imaging. Patient also had a KUB done which showed dilate
--- NOTE | 2023-06-29 13:09 | PC.NURSE ---
Patient is refusing heparin injection at morning med pass. Patient educated on importance of taking the medication as scheduled while in the hospital and risks of not taking this medication. Patient verbalizes understanding.
--- NOTE | 2023-06-29 13:48 | PC.NURSE ---
Patient to Dialysis at 1349
[2023-06-29 13:49] LABS: Hepatitis B Surface Antigen Negative (Negative)
--- NOTE | 2023-06-29 14:50 | PM.PNNEP ---
Progress Note: A&P Assessment and Plan (1) End stage renal disease: Code(s): N18.6 - End stage renal disease Status: Chronic Assessment and Plan: HD today normally does HD on Mondays and Fridays follow electrolytes, volume status, and clearance (2) Small bowel obstruction: Code(s): K56.609 - Unspecified intestinal obstruction, unspecified as to partial versus complete obstruction Status: Acute Assessment and Plan: as evidenced by history and imaging studies s/p NG tube placement for decompression Surgery following NG tube out -- diet being advanced continue current therapy (3) Essential hypertension: Code(s): I10 - Essential (primary) hypertension Status: Chronic Assessment and Plan: noted fluctuations since admission suspect pain issues playing a role along with inability to take po BP medications PRN IV medications (i.e. hydralazine or labetalol) and back on oral BP medications follow trend of hemodynamics (4) Mesenteric mass: Code(s): K63.89 - Other specified diseases of intestine Status: Acute Assessment and Plan: noted on previous CT scan done on 11/26/22 appears unchanged Will continue to follow. Subjective Date/time seen: 06/29/23 14:50 Interval history: Follow-up for end stage renal disease on hemodialysis. Tolerating dialysis treatment at the time of my visit (seen on HD at 2:40PM); issues with nausea, increased abdominal pain + distension overnight with associated restlessness -- repeat CT scan of abdomen/pelvis noted today; attempting to ambulate as tolerated. Exam Narrative: General: thin WD/WN female in NAD Heart: normal S1 and S2; no rub Lungs: clear to auscultation Abdomen: soft, mild TTP, nondistended, positive bowel sounds Extremities: no cyanosis or clubbing; no edema Skin: no rash Objective Data Vital Signs Vital Signs: Vital Signs Temp Pulse Resp BP Pulse Ox 06/29/23 09:37 59 L 06/29/23 09:34 59 L 143/57 H 06/29/23 06:35 170/51 H 06/29/23 05:45 98.8 F 64 16 181/87 H 93 06/28/23 19:46 98.4 F 59 L 14 152/58 H 95 06/28/23 17:20 58 L Intake/Output Intake/Output: Intake & Output 06/26/23 06/27/23 06/28/23/01/23 23:59 23:59 23:59 23:59 Intake Total 680 1840 220 Output Total 200 800 Balance -200 -120 1840 220 Meds/Results Medications: Active Medications Generic Name Dose Route Start Last Admin Trade Name Sherrie PRN Reason Stop Dose Admin Acetaminophen 500 mg 06/29/23 00:26 06/29/23 00:35 Acetaminophen 500 Mg Tablet PO 500 mg Q6H PRN Administration Mild Pain (1-3) or Fever Calcium Carbonate 200 mg 06/28/23 20:09 06/29/23 06:32 Calcium Carbonate (Tums) 500 Mg (200 Mg Elemental) PO 200 mg Q6H PRN Administration Indigestion Carvedilol 6.25 mg 06/26/23 17:00 06/29/23 09:37 Carvedilol 6.25 Mg Tablet PO 6.25 mg BID ANDRÉS Administration Clonazepam 1 mg 06/27/23 18:28 06/29/23 11:03 Clonazepam (*Crx) 0.5 Mg Tablet PO 0.5 mg BID PRN Administration Anxiety Epoetin Erasmo-epbx 4,000 units 06/29/23 20:23 06/29/23 16:08 Epoetin Erasmo-Epbx 4,000 Units/Ml Vial IV PUSH 06/29/23 20:24 4,000 units ONCE ONE Administration Furosemide 40 mg 06/26/23 17:00 06/29/23 09:35 Furosemide 40 Mg Tablet PO Not Given BID ANDRÉS Gabapentin 300 mg 06/26/23 21:00 06/28/23 20:33 Gabapentin 300 Mg Capsule PO 300 mg HS ANDRÉS Administration Guaifenesin 600 mg 06/27/23 21:00 06/29/23 09:36 Guaifenesin 12 Hr 600 Mg Tabcr PO Not Given Q12HR ANDRÉS Guaifenesin/Dextromethorphan 10 ml 06/27/23 14:45 06/28/23 17:18 Guaifenesin/Dextromethorphan 10 Ml Udc PO 10 ml Q4H PRN Administration Cough Heparin Sodium (Porcine) 5,000 units 06/25/23 21:00 06/29/23 09:36 Heparin Sodium 5,000 Units/Ml Vial SUB-Q Not Given Q12HR ANDRÉS Hydralazine HCl
--- NOTE | 2023-06-29 15:45 | PM.PNGS ---
Progress Note: A&P Assessment and Plan (1) Small bowel obstruction: Code(s): K56.609 - Unspecified intestinal obstruction, unspecified as to partial versus complete obstruction Status: Acute Assessment and Plan: worsening symptoms today, CT reviewed and likely c ileus, cont serial exams, back down to clears for now (2) Mesenteric mass: Code(s): K63.89 - Other specified diseases of intestine Status: Acute Assessment and Plan: stable, will workup further as outpt Subjective Subjective Date/Time Seen: 06/29/23 15:45 Interval history: feels worse today, more bloating, pain Review of Systems Review of Systems: All systems reviewed & are unremarkable except as noted in HPI and below Exam Const: General: cooperative, no acute distress, ill appearing and uncomfortable Resp: Auscultation: diminished lung sounds Cardio: Rate: regular rate Rhythm: regular rhythm GI: Inspection: normal to inspection and distended GI Palp: Yes abdominal tenderness, Yes Soft to palpation, Yes Tenderness to palpation present (GI), No Guarding due to palpation present (GI) and No Rigid due to palpation Objective Data Vital Signs Vital Signs: Vital Signs - 24 hr 06/28/23 17:20 06/28/23 19:46 06/29/23 05:45 Temperature 36.9 C 37.1 C Pulse Rate 58 L 59 L 64 Respiratory Rate 14 16 Blood Pressure 152/58 H 181/87 H Pulse Oximetry 95 93 06/29/23 06:35 06/29/23 09:34 06/29/23 09:37 Temperature Pulse Rate 59 L 59 L Respiratory Rate Blood Pressure 170/51 H 143/57 H Pulse Oximetry Intake/Output Intake/Output: Intake & Output 06/26/23 06/27/23 06/28/23 06/29/23 23:59 23:59 23:59 23:59 Intake Total 680 1840 220 Output Total 200 800 Balance -200 -120 1840 220 Meds/Results Medications: Active Medications Generic Name Dose Route Start Last Admin Trade Name Freq PRN Reason Stop Dose Admin Acetaminophen 500 mg 06/29/23 00:26 06/29/23 00:35 Acetaminophen 500 Mg Tablet PO 500 mg Q6H PRN Administration Mild Pain (1-3) or Fever Calcium Carbonate 200 mg 06/28/23 20:09 06/29/23 06:32 Calcium Carbonate (Tums) 500 Mg (200 Mg Elemental) PO 200 mg Q6H PRN Administration Indigestion Carvedilol 6.25 mg 06/26/23 17:00 06/29/23 09:37 Carvedilol 6.25 Mg Tablet PO 6.25 mg BID ANDRÉS Administration Clonazepam 1 mg 06/27/23 18:28 06/29/23 11:03 Clonazepam (*Crx) 0.5 Mg Tablet PO 0.5 mg BID PRN Administration Anxiety Epoetin Erasmo-epbx 4,000 units 06/29/23 20:23 Epoetin Erasmo-Epbx 4,000 Units/Ml Vial IV PUSH 06/29/23 20:24 ONCE ONE Furosemide 40 mg 06/26/23 17:00 06/29/23 09:35 Furosemide 40 Mg Tablet PO Not Given BID ANDRÉS Gabapentin 300 mg 06/26/23 21:00 06/28/23 20:33 Gabapentin 300 Mg Capsule PO 300 mg HS ANDRÉS Administration Guaifenesin 600 mg 06/27/23 21:00 06/29/23 09:36 Guaifenesin 12 Hr 600 Mg Tabcr PO Not Given Q12HR ANDRÉS Guaifenesin/Dextromethorphan 10 ml 06/27/23 14:45 06/28/23 17:18 Guaifenesin/Dextromethorphan 10 Ml Udc PO 10 ml Q4H PRN Administration Cough Heparin Sodium (Porcine) 5,000 units 06/25/23 21:00 06/29/23 09:36 Heparin Sodium 5,000 Units/Ml Vial SUB-Q Not Given Q12HR ANDRÉS Hydralazine HCl 10 mg 06/25/23 15:57 06/29/23 06:38 Hydralazine Hcl 20 Mg/Ml Vial IV PUSH 10 mg Q6H PRN Administration SBP > 165 or DBP > 105 Hydralazine HCl 25 mg 06/26/23 17:00 06/29/23 09:37 Hydralazine Hcl 25 Mg Tablet PO 25 mg BID ANDRÉS Administration Albumin Human 50 mls @ 999 mls/hr 06/26/23 06:49 Albutein IVPB 07/26/23 06:48 Q10M PRN HYPOTENSION Losartan Potassium 25 mg 06/27/23 09:00 06/29/23 09:40 Losartan Potassium 25 Mg Tablet PO Not Given DAILY ANDRÉS Nifedipine 60 mg 06/27/23 09:00 06/29/23 09:37 Nifedipine 30 Mg Tab.Er.24 PO 60 mg DAILY ANDRÉS Administration Ondansetron HCl 4 mg
[2023-06-29] MEDS: EPOETIN ALFA-EPBX 4,000 UNITS/ML VIAL 4000 UNITS IV PUSH (16:08)
[2023-06-29 17:38] LABS: Hepatitis B Surface Anti Res Indeterminate
[2023-06-29 20:03] LABS: Vitamin D 1,25 (OH)2 Total 22 pg/mL (18-72); Vitamin D2 1,25 (OH)2 <8 pg/mL; Vitamin D3 1,25 (OH)2 22 pg/mL
[2023-06-29] MEDS: GABAPENTIN 300 MG CAPSULE PO (20:45)
[2023-06-29] MEDS: guaiFENesin 12 HR 600 MG TABCR PO (20:46)
[2023-06-29] MEDS: guaiFENesin/DEXTROMETHORPHAN 10 ML UDC PO (22:17)
[2023-06-30 05:55] VITALS: BP 151/64; PULSE 57; RESP 16; TEMP 37.2; O2SAT 95
[2023-06-30 06:04] LABS: Basophils Absolute Auto 0.1 K/mm3 (0.0-0.1); Basophils Percent Auto 0.9 % (0.2-1.2); Eosinophils Absolute Auto 0.3 K/mm3 (0-0.3); Eosinophils Percent Auto 4.9 % (0-4.4); Hematocrit 34.9 % (37.0-47.0); Hemoglobin 11.1 g/dL (12.0-15.0); Immature Granulocyte Absolute 0.04 K/mm3 (0.00-0.031); Immature Granulocyte Percent A 0.6 % (0-0.5); Lymphocytes Absolute Auto 1.03 K/mm3 (0.9-3.2); Lymphocytes Percent Auto 14.9 % (18.3-44.2); Mean Corpuscular HGB Conc 31.8 g/dl (32-36); Mean Corpuscular Hemoglobin 30.2 pg (26-34); Mean Corpuscular Volume 94.8 fl (80-100); Mean Platelet Volume 10.8 fl (7.4-10.4); Monocytes Absolute Auto 0.8 K/mm3 (0.1-0.6); Monocytes Percent Auto 11.4 % (2.6-8.5); Neutrophils Absolute Auto 4.6 K/mm3 (1.3-6.7); Neutrophils Percent Auto 67.3 % (45.5-73.1); Platelet Count Result 190 k/mm3 (150-375); Red Blood Count 3.68 M/mm3 (4.2-5.4); Red Cell Distribution Width 13.2 % (11.5-14.5); White Blood Count 6.9 K/mm3 (4.5-10.0)
[2023-06-30 06:26] LABS: Alanine Aminotransferase 33 U/L (6-35); Albumin Level 3.9 g/dL (3.5-5.1); Alkaline Phosphatase 72 U/L (38-126); Anion Gap 6 mmol/L (8-16); Aspartate Amino Transferase 44 U/L (14-36); Bilirubin,Total 0.7 mg/dL (0.2-1.3); Blood Urea Nitrogen 15 mg/dL (7-17); Calcium 9.5 mg/dL (8.4-10.2); Carbon Dioxide 29 mmol/L (22-30); Chloride 102 mmol/L (98-107); Estimated CRCL calculation 14 ml/min; Estimated Glomerular Filt Rate 15; Glucose 97 mg/dL (65-110); Potassium 3.9 mmol/L (3.4-5.0); Sodium 137 mmol/L (137-145)
[2023-06-30] MEDS: ONDANSETRON INJ 4 MG/2 ML VIAL IV PUSH ×2 (08:00→21:00)
[2023-06-30 08:32] VITALS: PULSE 55
[2023-06-30] MEDS: NIFEdipine 30 MG TAB.ER.24 60 MG PO (08:32)
[2023-06-30] MEDS: carvediloL 6.25 MG TABLET PO ×2 (08:32→17:13)
[2023-06-30] MEDS: LOSARTAN POTASSIUM 25 MG TABLET PO (08:33)
[2023-06-30] MEDS: hydrALAZINE HCL 25 MG TABLET PO ×2 (08:33→17:13)
[2023-06-30] MEDS: guaiFENesin 12 HR 600 MG TABCR PO (08:33)
[2023-06-30] MEDS: FUROSEMIDE 40 MG TABLET PO ×2 (08:33→17:13)
[2023-06-30 08:34] VITALS: PULSE 55; O2SAT 97
--- NOTE | 2023-06-30 08:39 | P.PNIM_ITS ---
Progress Note: A&P Assessment and Plan (1) Small bowel obstruction: Code(s): K56.609 - Unspecified intestinal obstruction, unspecified as to partial versus complete obstruction Status: Acute Assessment and Plan: 06/26/23: * Patient has had multiple abdominal surgeries and prior small-bowel obstructions. * Conservative treatment with NG tube decompression and bowel rest. * Avoid over-hydration as she has on dialysis. * Analgesics and antiemetics are available as needed. * Continue serial abdominal exams and imaging. * General surgery consulted. * NG tube clamped and clear liquids at dinner. 06/27/23: * Continue with conservative management. * We will clamp NG tube today and start clear liquid see how she tolerates. * General surgery following. 06/28/23: * NG tube removed. Patient tolerating clears. * Will advance diet today and see how she tolerates. 06/29/23: * Patient complaining of increased abdominal pain, increased nausea, increased distension of her abdomen today. * Patient has been passing gas, she has had a small bowel movement last night, her bowel sounds are hypoactive currently. * Will back off on her diet again today to a clear liquid diet as tolerated * Continue Zofran for nausea * Encourage ambulation in the halls * Will go ahead and repeat a CT scan of her abdomen pelvis today considering her abdomen is firm and she is more symptomatic today. 06/30/23: * Patient's symptoms have improved significantly today. She is still reporting some nausea but she is contributing that to her cough with phlegm more than her abdominal issue. * She is passing gas and had a small bowel movement overnight, her bowel sounds are normoactive and her abdomen is slightly distended this morning, nontender. * CT scan her abdomen pelvis shown small bowel obstruction versus ileus * Continue to encourage ambulation in the halls, patient reports she has been walking the halls at least once an hour while she is awake. * General surgery still following * Plan to increase her diet again today and see how she does (2) Mesenteric mass: Code(s): K63.89 - Other specified diseases of intestine Status: Acute Assessment and Plan: 06/26/23: * Small central mesenteric mass appears unchanged from CT in November 2022. * May need outpatient monitoring. 06/27/23: * Of note (3) End-stage renal disease on hemodialysis: Code(s): N18.6 - End stage renal disease; Z99.2 - Dependence on renal dialysis Status: Chronic Assessment and Plan: 06/26/23: * Patient has dialysis on Sunday, Sunday, Sunday. * Stable volume status. * No acute electrolyte abnormalities. * Nephrology consulted. 06/27/23: * Patient had HD today, no UF removal * BUN 22, creatinine 2.9, potassium 4.0 * Nephrology following * has right chest port a cath 06/28/23: * Plan for HD tomorrow * BUN 31, Creatinine 3.70, K+ 3.7 * Nephrology following 06/29/23: * BUN 33, creatinine 4.4, potassium 3.7 * Plan for HD today * Nephrology following 06/30/23: * Patient had dialysis yesterday * BUN 15, creatinine 3.0, potassium 3.9 * Nephrology following * Plan for dialysis tomorrow (4) Essential hypertension: Code(s): I10 - Essential (primary) hypertension Status: Chronic Assessment and Plan: 06/26/23: * Blood pressures have fluctuated from the 120s to 170 systolic, in part due to pain. * Home medications restarted. * Continue to monitor blood pressures closely.
--- NOTE | 2023-06-30 08:39 | PM.IMPN ---
Progress Note: A&P Assessment and Plan (1) Small bowel obstruction: Code(s): K56.609 - Unspecified intestinal obstruction, unspecified as to partial versus complete obstruction Status: Acute Assessment and Plan: 06/26/23: Patient has had multiple abdominal surgeries and prior small-bowel obstructions. Conservative treatment with NG tube decompression and bowel rest. Avoid over-hydration as she has on dialysis. Analgesics and antiemetics are available as needed. Continue serial abdominal exams and imaging. General surgery consulted. NG tube clamped and clear liquids at dinner. 06/27/23: Continue with conservative management. We will clamp NG tube today and start clear liquid see how she tolerates. General surgery following. 06/28/23: NG tube removed. Patient tolerating clears. Will advance diet today and see how she tolerates. 06/29/23: Patient complaining of increased abdominal pain, increased nausea, increased distension of her abdomen today. Patient has been passing gas, she has had a small bowel movement last night, her bowel sounds are hypoactive currently. Will back off on her diet again today to a clear liquid diet as tolerated Continue Zofran for nausea Encourage ambulation in the halls Will go ahead and repeat a CT scan of her abdomen pelvis today considering her abdomen is firm and she is more symptomatic today. 06/30/23: Patient's symptoms have improved significantly today. She is still reporting some nausea but she is contributing that to her cough with phlegm more than her abdominal issue. She is passing gas and had a small bowel movement overnight, her bowel sounds are normoactive and her abdomen is slightly distended this morning, nontender. CT scan her abdomen pelvis shown small bowel obstruction versus ileus Continue to encourage ambulation in the halls, patient reports she has been walking the halls at least once an hour while she is awake. General surgery still following Plan to increase her diet again today and see how she does (2) Mesenteric mass: Code(s): K63.89 - Other specified diseases of intestine Status: Acute Assessment and Plan: 06/26/23: Small central mesenteric mass appears unchanged from CT in November 2022. May need outpatient monitoring. 06/27/23: Of note (3) End-stage renal disease on hemodialysis: Code(s): N18.6 - End stage renal disease; Z99.2 - Dependence on renal dialysis Status: Chronic Assessment and Plan: 06/26/23: Patient has dialysis on Sunday, Sunday, Sunday. Stable volume status. No acute electrolyte abnormalities. Nephrology consulted. 06/27/23: Patient had HD today, no UF removal BUN 22, creatinine 2.9, potassium 4.0 Nephrology following has right chest port a cath 06/28/23: Plan for HD tomorrow BUN 31, Creatinine 3.70, K+ 3.7 Nephrology following 06/29/23: BUN 33, creatinine 4.4, potassium 3.7 Plan for HD today Nephrology following 06/30/23: Patient had dialysis yesterday BUN 15, creatinine 3.0, potassium 3.9 Nephrology following Plan for dialysis tomorrow (4) Essential hypertension: Code(s): I10 - Essential (primary) hypertension Status: Chronic Assessment and Plan: 06/26/23: Blood pressures have fluctuated from the 120s to 170 systolic, in part due to pain. Home medications restarted. Continue to monitor blood pressures closely. 06/27/23: Blood pressures ranging 173/64 to 196/48 Continue with home medication for blood pressure control Continue with hydralazine 10 mg IV push q.6 hour p.r.n. for systolic greater than 165 06/28/23: Blood pressures ranging 163/41-173/51 Continue with current treatment plan 06/29/23: Continue with current treatment plan 06/30/23: No change to current treatment plan (5) Anxiety: Code(s): F41.9 - Anxiety disorder, unspecified Status: Acute Assessment and [place]
--- NOTE | 2023-06-30 08:44 | PC.NURSE ---
Patient refused hep injection with morning med pass. Educated patient on risk and benefits. Patient verbally expressed understanding expressed
--- NOTE | 2023-06-30 10:11 | PM.PNGS ---
Progress Note: A&P Assessment and Plan (1) Small bowel obstruction: Code(s): K56.609 - Unspecified intestinal obstruction, unspecified as to partial versus complete obstruction Status: Acute Assessment and Plan: feels better today, +bowel fxn, will advance to renal diet Subjective Subjective Date/Time Seen: 06/30/23 10:11 Interval history: feels better this am, had a BM overnight, jose clears Review of Systems Review of Systems: All systems reviewed & are unremarkable except as noted in HPI and below Exam Const: General: cooperative, comfortable and no acute distress Resp: Auscultation: clear to auscultation bilaterally Cardio: Rate: regular rate Rhythm: regular rhythm GI: Inspection: normal to inspection and non-distended GI Palp: Yes abdominal tenderness, Yes Soft to palpation, Yes Tenderness to palpation present (GI), No Guarding due to palpation present (GI) and No Rigid due to palpation Objective Data Vital Signs Vital Signs: Vital Signs - 24 hr 06/29/23 13:53 06/29/23 13:53 06/29/23 14:07 Temperature 36.6 C Pulse Rate 61 60 Respiratory Rate 18 Blood Pressure 162/58 H 138/58 L Pulse Oximetry Oxygen Flow Rate 0 Fraction of Inspired Oxygen 0 06/29/23 14:15 06/29/23 14:30 06/29/23 14:45 Temperature Pulse Rate 57 L 55 L 56 L Respiratory Rate Blood Pressure 144/64 H 161/58 H 144/61 H Pulse Oximetry Oxygen Flow Rate Fraction of Inspired Oxygen 06/29/23 15:00 06/29/23 15:15 06/29/23 15:30 Temperature Pulse Rate 54 L 57 L 56 L Respiratory Rate Blood Pressure 131/54 L 145/60 H 142/57 H Pulse Oximetry Oxygen Flow Rate Fraction of Inspired Oxygen 06/29/23 15:45 06/29/23 16:00 06/29/23 16:15 Temperature Pulse Rate 55 L 56 L 57 L Respiratory Rate Blood Pressure 144/51 H 142/57 H 132/56 L Pulse Oximetry Oxygen Flow Rate Fraction of Inspired Oxygen 06/29/23 16:30 06/29/23 16:47 06/29/23 16:58 Temperature 36.7 C Pulse Rate 61 63 61 Respiratory Rate 18 Blood Pressure 165/63 H 170/64 H 162/58 H Pulse Oximetry Oxygen Flow Rate Fraction of Inspired Oxygen 06/29/23 17:49 06/29/23 17:50 06/29/23 21:22 Temperature 36.8 C Pulse Rate 65 65 53 L Respiratory Rate 18 Blood Pressure 158/51 H 120/62 Pulse Oximetry 94 Oxygen Flow Rate Fraction of Inspired Oxygen 06/30/23 05:55 06/30/23 08:32 06/30/23 08:34 Temperature 37.2 C Pulse Rate 57 L 55 L 55 L Respiratory Rate 16 Blood Pressure 151/64 H Pulse Oximetry 95 97 Oxygen Flow Rate Fraction of Inspired Oxygen 06/30/23 08:36 Temperature Pulse Rate Respiratory Rate Blood Pressure Pulse Oximetry Oxygen Flow Rate Fraction of Inspired Oxygen 0 Intake/Output Intake/Output: Intake & Output 06/27/23 06/28/23 06/29/23 06/30/23 23:59 23:59 23:59 23:59 Intake Total 680 1840 220 200 Output Total 800 0 Balance -120 1840 220 200 Meds/Results Medications: Active Medications Generic Name Dose Route Start Last Admin Trade Name Chavoq PRN Reason Stop Dose Admin Acetaminophen 500 mg 06/29/23 00:26 06/29/23 00:35 Acetaminophen 500 Mg Tablet PO 500 mg Q6H PRN Administration Mild Pain (1-3) or Fever Calcium Carbonate 200 mg 06/28/23 20:09 06/29/23 06:32 Calcium Carbonate (Tums) 500 Mg (200 Mg Elemental) PO 200 mg Q6H PRN Administration Indigestion Carvedilol 6.25 mg 06/26/23 17:00 06/30/23 08:32 Carvedilol 6.25 Mg Tablet PO 6.25 mg BID ANDRÉS Administration Clonazepam 1 mg 06/27/23 18:28 06/29/23 20:45 Clonazepam (*Crx) 0.5 Mg Tablet PO 1 mg BID PRN Administration Anxiety Furosemide 40 mg 06/26/23 17:00 06/30/23 08:33 Furosemide 40 Mg Tablet PO 40 mg BID ANDRÉS Administration Gabapentin 300 mg 06/26/23 21:00 06/29/23 20:45 Gabapentin 300 Mg Capsule PO 300 mg HS ANDRÉS Administration Guaifenesin 600 mg 06/27/23 21:00 1
--- NOTE | 2023-06-30 13:15 | PM.PNNEP ---
Progress Note: A&P Assessment and Plan (1) End stage renal disease: Code(s): N18.6 - End stage renal disease Status: Chronic Assessment and Plan: HD yesterday normally does HD on Mondays and Fridays follow electrolytes, volume status, and clearance (2) Small bowel obstruction: Code(s): K56.609 - Unspecified intestinal obstruction, unspecified as to partial versus complete obstruction Status: Acute Assessment and Plan: as evidenced by history and imaging studies s/p NG tube placement for decompression Surgery following NG tube out -- diet being advanced continue current therapy (3) Essential hypertension: Code(s): I10 - Essential (primary) hypertension Status: Chronic Assessment and Plan: noted fluctuations since admission suspect pain issues playing a role along with inability to take po BP medications PRN IV medications (i.e. hydralazine or labetalol) and back on oral BP medications follow trend of hemodynamics (4) Mesenteric mass: Code(s): K63.89 - Other specified diseases of intestine Status: Acute Assessment and Plan: noted on previous CT scan done on 11/26/22 appears unchanged Will continue to follow. Subjective Date/time seen: 06/30/23 13:15 Interval history: Follow-up for end stage renal disease on hemodialysis. Tolerated dialysis treatment yesterday without any issues or problems; overall, feels better in general; + flatus and bowel movements; still with some intermittent nausea; no apparent distress voiced. Exam Narrative: General: thin WD/WN female in NAD Heart: normal S1 and S2; no rub Lungs: clear to auscultation Abdomen: soft, mild TTP, nondistended, positive bowel sounds Extremities: no cyanosis or clubbing; no edema Skin: no nodules Objective Data Vital Signs Vital Signs: Vital Signs Temp Pulse Resp BP Pulse Ox FiO2 06/30/23 13:15 97.8 F 56 L 18 152/56 H 97 06/30/23 08:36 0 06/30/23 08:34 55 L 97 06/30/23 08:32 55 L 06/30/23 05:55 98.9 F 57 L 16 151/64 H 95 06/29/23 21:22 98.2 F 53 L 18 120/62 94 06/29/23 17:50 65 06/29/23 17:49 65 158/51 H Intake/Output Intake/Output: Intake & Output 06/27/23 06/28/23 06/29/23 06/30/23 23:59 23:59 23:59 23:59 Intake Total 680 1840 220 560 Output Total 800 0 Balance -120 1840 220 560 Meds/Results Medications: Active Medications Generic Name Dose Route Start Last Admin Trade Name Freq PRN Reason Stop Dose Admin Acetaminophen 500 mg 06/29/23 00:26 06/29/23 00:35 Acetaminophen 500 Mg Tablet PO 500 mg Q6H PRN Administration Mild Pain (1-3) or Fever Calcium Carbonate 200 mg 06/28/23 20:09 06/29/23 06:32 Calcium Carbonate (Tums) 500 Mg (200 Mg Elemental) PO 200 mg Q6H PRN Administration Indigestion Carvedilol 6.25 mg 06/26/23 17:00 06/30/23 17:13 Carvedilol 6.25 Mg Tablet PO 6.25 mg BID ANDRÉS Administration Clonazepam 1 mg 06/27/23 18:28 06/30/23 15:31 Clonazepam (*Crx) 0.5 Mg Tablet PO 0.5 mg BID PRN Administration Anxiety Furosemide 40 mg 06/26/23 17:00 06/30/23 17:13 Furosemide 40 Mg Tablet PO 40 mg BID ANDRÉS Administration Gabapentin 300 mg 06/26/23 21:00 06/29/23 20:45 Gabapentin 300 Mg Capsule PO 300 mg HS ANDRÉS Administration Guaifenesin 600 mg 06/27/23 21:00 06/30/23 08:33 Guaifenesin 12 Hr 600 Mg Tabcr PO 600 mg Q12HR ANDRÉS Administration Guaifenesin/Dextromethorphan 10 ml 06/27/23 14:45 06/29/23 22:17 Guaifenesin/Dextromethorphan 10 Ml Udc PO 10 ml Q4H PRN Administration Cough Heparin Sodium (Porcine) 5,000 units 06/25/23 21:00 06/30/23 08:33 Heparin Sodium 5,000 Units/Ml Vial SUB-Q Not Given Q12HR ANDRÉS Hydralazine HCl 10 mg 06/25/23 15:57 06/29/23 06:38 Hydralazine Hcl 20 Mg/Ml Vial IV PUSH 10 mg Q6H PRN Administration SBP
[2023-06-30 14:18] VITALS: BP 152/56; PULSE 56; RESP 18; TEMP 36.6; O2SAT 97
[2023-06-30] MEDS: clonazePAM (*CRX) 0.5 MG TABLET 1 MG PO ×2 (15:31→20:34)
--- NOTE | 2023-06-30 15:31 | PC.NURSE ---
Pt ask literary writer at administer 0.5 mg clonazepam rather than full dose
[2023-06-30 17:13] VITALS: PULSE 62
[2023-06-30 19:40] VITALS: BP 147/65; PULSE 61; RESP 16; TEMP 36.7; O2SAT 98
[2023-06-30] MEDS: GABAPENTIN 300 MG CAPSULE PO (20:35)
[2023-06-30] MEDS: LORazepam INJ (*CRX) 2 MG/ML VIAL 1 MG IV PUSH (21:16)
[2023-07-01 04:39] VITALS: BP 186/54; PULSE 61; RESP 14; TEMP 36.9; O2SAT 96
[2023-07-01] MEDS: hydrALAZINE HCL 20 MG/ML VIAL 10 MG IV PUSH ×2 (04:58→20:34)
[2023-07-01 05:44] VITALS: BP 165/52
[2023-07-01 06:21] LABS: Basophils Percent Auto 0.4 % (0.2-1.2); Eosinophils Absolute Auto 0.3 K/mm3 (0-0.3); Eosinophils Percent Auto 3.7 % (0-4.4); Hematocrit 33.6 % (37.0-47.0); Hemoglobin 10.7 g/dL (12.0-15.0); Immature Granulocyte Absolute 0.06 K/mm3 (0.00-0.031); Immature Granulocyte Percent A 0.7 % (0-0.5); Lymphocytes Absolute Auto 1.32 K/mm3 (0.9-3.2); Lymphocytes Percent Auto 15.9 % (18.3-44.2); Mean Corpuscular HGB Conc 31.8 g/dl (32-36); Mean Corpuscular Hemoglobin 29.9 pg (26-34); Mean Corpuscular Volume 93.9 fl (80-100); Mean Platelet Volume 10.9 fl (7.4-10.4); Monocytes Absolute Auto 0.9 K/mm3 (0.1-0.6); Monocytes Percent Auto 10.6 % (2.6-8.5); Neutrophils Absolute Auto 5.7 K/mm3 (1.3-6.7); Neutrophils Percent Auto 68.7 % (45.5-73.1); Platelet Count Result 196 k/mm3 (150-375); Red Blood Count 3.58 M/mm3 (4.2-5.4); Red Cell Distribution Width 13.1 % (11.5-14.5); White Blood Count 8.3 K/mm3 (4.5-10.0)
[2023-07-01 06:39] LABS: Alanine Aminotransferase 24 U/L (6-35); Albumin Level 3.7 g/dL (3.5-5.1); Alkaline Phosphatase 70 U/L (38-126); Anion Gap 12 mmol/L (8-16); Aspartate Amino Transferase 26 U/L (14-36); Bilirubin,Total 0.5 mg/dL (0.2-1.3); Blood Urea Nitrogen 22 mg/dL (7-17); Calcium 9.4 mg/dL (8.4-10.2); Carbon Dioxide 25 mmol/L (22-30); Chloride 100 mmol/L (98-107); Estimated CRCL calculation 10 ml/min; Estimated Glomerular Filt Rate 12; Glucose 98 mg/dL (65-110); Potassium 3.3 mmol/L (3.4-5.0); Sodium 137 mmol/L (137-145)
--- NOTE | 2023-07-01 08:30 | P.PNIM_ITS ---
Progress Note: A&P Assessment and Plan (1) Small bowel obstruction: Code(s): K56.609 - Unspecified intestinal obstruction, unspecified as to partial versus complete obstruction Status: Acute Assessment and Plan: 06/26/23: * Patient has had multiple abdominal surgeries and prior small-bowel obstructions. * Conservative treatment with NG tube decompression and bowel rest. * Avoid over-hydration as she has on dialysis. * Analgesics and antiemetics are available as needed. * Continue serial abdominal exams and imaging. * General surgery consulted. * NG tube clamped and clear liquids at dinner. 06/27/23: * Continue with conservative management. * We will clamp NG tube today and start clear liquid see how she tolerates. * General surgery following. 06/28/23: * NG tube removed. Patient tolerating clears. * Will advance diet today and see how she tolerates. 06/29/23: * Patient complaining of increased abdominal pain, increased nausea, increased distension of her abdomen today. * Patient has been passing gas, she has had a small bowel movement last night, her bowel sounds are hypoactive currently. * Will back off on her diet again today to a clear liquid diet as tolerated * Continue Zofran for nausea * Encourage ambulation in the halls * Will go ahead and repeat a CT scan of her abdomen pelvis today considering her abdomen is firm and she is more symptomatic today. 06/30/23: * Patient's symptoms have improved significantly today. She is still reporting some nausea but she is contributing that to her cough with phlegm more than her abdominal issue. * She is passing gas and had a small bowel movement overnight, her bowel sounds are normoactive and her abdomen is slightly distended this morning, nontender. * CT scan her abdomen pelvis shown small bowel obstruction versus ileus * Continue to encourage ambulation in the halls, patient reports she has been walking the halls at least once an hour while she is awake. * General surgery still following * Plan to increase her diet again today and see how she does 07/01/23: * Patient having symptoms through the night requiring an NG tube to be replaced. * General surgery seen patient today and recommended an SBS, results are pending * Will defer to General surgery team for any increase in her diet (2) Mesenteric mass: Code(s): K63.89 - Other specified diseases of intestine Status: Acute Assessment and Plan: 06/26/23: * Small central mesenteric mass appears unchanged from CT in November 2022. * May need outpatient monitoring. 06/27/23: * Of note (3) End-stage renal disease on hemodialysis: Code(s): N18.6 - End stage renal disease; Z99.2 - Dependence on renal dialysis Status: Chronic Assessment and Plan: 06/26/23: * Patient has dialysis on Sunday, Sunday, Sunday. * Stable volume status. * No acute electrolyte abnormalities. * Nephrology consulted. 06/27/23: * Patient had HD today, no UF removal * BUN 22, creatinine 2.9, potassium 4.0 * Nephrology following * has right chest port a cath 06/28/23: * Plan for HD tomorrow * BUN 31, Creatinine 3.70, K+ 3.7 * Nephrology following 06/29/23: * BUN 33, creatinine 4.4, potassium 3.7 * Plan for HD today * Nephrology following 06/30/23: * Patient had dialysis yesterday * BUN 15, creatinine 3.0, potassium 3.9 * Nephrology following * Plan for dialysis tomorrow 07/01/23: * Nephrology following * Patient will have HD tomorrow * BUN 22, creatinine 3.8, potas
--- NOTE | 2023-07-01 08:30 | PM.IMPN ---
Progress Note: A&P Assessment and Plan (1) Small bowel obstruction: Code(s): K56.609 - Unspecified intestinal obstruction, unspecified as to partial versus complete obstruction Status: Acute Assessment and Plan: 06/26/23: Patient has had multiple abdominal surgeries and prior small-bowel obstructions. Conservative treatment with NG tube decompression and bowel rest. Avoid over-hydration as she has on dialysis. Analgesics and antiemetics are available as needed. Continue serial abdominal exams and imaging. General surgery consulted. NG tube clamped and clear liquids at dinner. 06/27/23: Continue with conservative management. We will clamp NG tube today and start clear liquid see how she tolerates. General surgery following. 06/28/23: NG tube removed. Patient tolerating clears. Will advance diet today and see how she tolerates. 06/29/23: Patient complaining of increased abdominal pain, increased nausea, increased distension of her abdomen today. Patient has been passing gas, she has had a small bowel movement last night, her bowel sounds are hypoactive currently. Will back off on her diet again today to a clear liquid diet as tolerated Continue Zofran for nausea Encourage ambulation in the halls Will go ahead and repeat a CT scan of her abdomen pelvis today considering her abdomen is firm and she is more symptomatic today. 06/30/23: Patient's symptoms have improved significantly today. She is still reporting some nausea but she is contributing that to her cough with phlegm more than her abdominal issue. She is passing gas and had a small bowel movement overnight, her bowel sounds are normoactive and her abdomen is slightly distended this morning, nontender. CT scan her abdomen pelvis shown small bowel obstruction versus ileus Continue to encourage ambulation in the halls, patient reports she has been walking the halls at least once an hour while she is awake. General surgery still following Plan to increase her diet again today and see how she does 07/01/23: Patient having symptoms through the night requiring an NG tube to be replaced. General surgery seen patient today and recommended an SBS, results are pending Will defer to General surgery team for any increase in her diet (2) Mesenteric mass: Code(s): K63.89 - Other specified diseases of intestine Status: Acute Assessment and Plan: 06/26/23: Small central mesenteric mass appears unchanged from CT in November 2022. May need outpatient monitoring. 06/27/23: Of note (3) End-stage renal disease on hemodialysis: Code(s): N18.6 - End stage renal disease; Z99.2 - Dependence on renal dialysis Status: Chronic Assessment and Plan: 06/26/23: Patient has dialysis on Sunday, Sunday, Sunday. Stable volume status. No acute electrolyte abnormalities. Nephrology consulted. 06/27/23: Patient had HD today, no UF removal BUN 22, creatinine 2.9, potassium 4.0 Nephrology following has right chest port a cath 06/28/23: Plan for HD tomorrow BUN 31, Creatinine 3.70, K+ 3.7 Nephrology following 06/29/23: BUN 33, creatinine 4.4, potassium 3.7 Plan for HD today Nephrology following 06/30/23: Patient had dialysis yesterday BUN 15, creatinine 3.0, potassium 3.9 Nephrology following Plan for dialysis tomorrow 07/01/23: Nephrology following Patient will have HD tomorrow BUN 22, creatinine 3.8, potassium 3.3 Will continue to trend labs (4) Essential hypertension: Code(s): I10 - Essential (primary) hypertension Status: Chronic Assessment and Plan: 06/26/23: Blood pressures have fluctuated from the 120s to 170 systolic, in part due to pain. Home medications restarted. Continue to monitor blood pressures closely. 06/27/23: Blood pressures ranging 173/64 to 196/48 Continue with home medication for blood pressure control Continue with hydralaz
--- NOTE | 2023-07-01 08:41 | PC.NURSE ---
Pt refused hep injection. Educated pt on risk and benefits quita with re-insertion of NG and ambulating less. Pt verbally stated understanding.
--- NOTE | 2023-07-01 11:17 | PM.PNGS ---
Progress Note: A&P Assessment and Plan (1) Small bowel obstruction: Code(s): K56.609 - Unspecified intestinal obstruction, unspecified as to partial versus complete obstruction Status: Acute Assessment and Plan: exam benign this am, cont NG, bowel rest, will get SBS Subjective Subjective Date/Time Seen: 07/01/23 11:17 Interval history: recurrent N/V, cramping last night requiring NG placement, feels better this am Review of Systems Review of Systems: All systems reviewed & are unremarkable except as noted in HPI and below Exam Const: General: cooperative, comfortable, no acute distress and ill appearing Resp: Auscultation: clear to auscultation bilaterally Cardio: Rate: regular rate Rhythm: regular rhythm GI: Inspection: normal to inspection and distended GI Palp: Yes abdominal tenderness, Yes Soft to palpation, Yes Tenderness to palpation present (GI), No Guarding due to palpation present (GI) and No Rigid due to palpation Objective Data Vital Signs Vital Signs: Vital Signs - 24 hr 06/30/23 14:18 06/30/23 17:13 06/30/23 19:40 Temperature 36.6 C 36.7 C Pulse Rate 56 L 62 61 Respiratory Rate 18 16 Blood Pressure 152/56 H 147/65 H Pulse Oximetry 97 98 07/01/23 04:39 07/01/23 05:44 Temperature 36.9 C Pulse Rate 61 Respiratory Rate 14 Blood Pressure 186/54 H 165/52 H Pulse Oximetry 96 Intake/Output Intake/Output: Intake & Output 06/28/23 06/29/23 06/30/23 07/01/23 23:59 23:59 23:59 23:59 Intake Total 1840 220 800 0 Output Total 0 1100 Balance 1840 220 800 -1100 Meds/Results Medications: Active Medications Generic Name Dose Route Start Last Admin Trade Name Freq PRN Reason Stop Dose Admin Acetaminophen 500 mg 06/29/23 00:26 06/29/23 00:35 Acetaminophen 500 Mg Tablet PO 500 mg Q6H PRN Administration Mild Pain (1-3) or Fever Calcium Carbonate 200 mg 06/28/23 20:09 06/29/23 06:32 Calcium Carbonate (Tums) 500 Mg (200 Mg Elemental) PO 200 mg Q6H PRN Administration Indigestion Carvedilol 6.25 mg 06/26/23 17:00 07/01/23 08:33 Carvedilol 6.25 Mg Tablet PO Not Given BID ANDRÉS Clonazepam 1 mg 06/27/23 18:28 06/30/23 20:34 Clonazepam (*Crx) 0.5 Mg Tablet PO 0.5 mg BID PRN Administration Anxiety Furosemide 40 mg 06/26/23 17:00 07/01/23 08:33 Furosemide 40 Mg Tablet PO Not Given BID ANDRÉS Gabapentin 300 mg 06/26/23 21:00 06/30/23 20:35 Gabapentin 300 Mg Capsule PO 300 mg HS ANDRÉS Administration Guaifenesin 600 mg 06/27/23 21:00 07/01/23 08:33 Guaifenesin 12 Hr 600 Mg Tabcr PO Not Given Q12HR ANDRÉS Guaifenesin/Dextromethorphan 10 ml 06/27/23 14:45 06/29/23 22:17 Guaifenesin/Dextromethorphan 10 Ml Udc PO 10 ml Q4H PRN Administration Cough Heparin Sodium (Porcine) 5,000 units 06/25/23 21:00 07/01/23 08:41 Heparin Sodium 5,000 Units/Ml Vial SUB-Q Not Given Q12HR ANDRÉS Hydralazine HCl 10 mg 06/25/23 15:57 07/01/23 04:58 Hydralazine Hcl 20 Mg/Ml Vial IV PUSH 10 mg Q6H PRN Administration SBP > 165 or DBP > 105 Hydralazine HCl 25 mg 06/26/23 17:00 07/01/23 08:33 Hydralazine Hcl 25 Mg Tablet PO Not Given BID [facility] Albumin Human 50 mls @ 999 mls/hr 06/26/23 06:49 Albutein IVPB 07/26/23 06:48 Q10M PRN HYPOTENSION Losartan Potassium 25 mg 06/27/23 09:00 07/01/23 08:33 Losartan Potassium 25 Mg Tablet PO Not Given DAILY [facility] Nifedipine 60 mg 06/27/23 09:00 07/01/23 08:33 Nifedipine 30 Mg Tab.Er.24 PO Not Given DAILY [facility] Ondansetron HCl 4 mg 06/25/23 09:15 06/30/23 21:00 Ondansetron Inj 4 Mg/2 Ml Vial IV PUSH 4 mg Q4H PRN Administration Nausea Radiology Results: ITS Impressions Abdomen/Pelvis CT 06/29/23 13:14 IMPRESSION: 1. Diffusely dilated small bowel with air-fluid levels which may reflect obstruction or ileus. No transition site is identified. 2: Irregular shaped 1
--- NOTE | 2023-07-01 12:16 | PM.PNNEP ---
Progress Note: A&P Assessment and Plan (1) End stage renal disease: Code(s): N18.6 - End stage renal disease Status: Chronic Assessment and Plan: HD tomorrow normally does HD on Mondays and Fridays follow electrolytes, volume status, and clearance (2) Small bowel obstruction: Code(s): K56.609 - Unspecified intestinal obstruction, unspecified as to partial versus complete obstruction Status: Acute Assessment and Plan: as evidenced by history and imaging studies s/p NG tube placement for decompression NG tube placed again overnight () Surgery following small bowel follow-through ordered continue current therapy (3) Essential hypertension: Code(s): I10 - Essential (primary) hypertension Status: Chronic Assessment and Plan: noted fluctuations since admission suspect pain issues playing a role along with inability to take po BP medications PRN IV medications (i.e. hydralazine or labetalol) and back on oral BP medications follow trend of hemodynamics (4) Mesenteric mass: Code(s): K63.89 - Other specified diseases of intestine Status: Acute Assessment and Plan: noted on previous CT scan done on 11/26/22 appears unchanged Will continue to follow. Subjective Date/time seen: 07/01/23 12:16 Interval history: Follow-up for end stage renal disease on hemodialysis. Worsening symptoms noted as diet being advanced; NG tube placed again as KUB overnight noted diffusely gas filled/distended small bowel and colon likely to be ileus; a bit down by her lack of progress in the last 24 hours. Exam Narrative: General: thin WD/WN female in NAD Heart: normal S1 and S2; no rub Lungs: clear to auscultation Abdomen: soft, mild TTP, nondistended, positive bowel sounds Extremities: no cyanosis or clubbing; no edema Skin: warm and dry Objective Data Vital Signs Vital Signs: Vital Signs Temp Pulse Resp BP Pulse Ox 07/01/23 11:52 98.8 F 63 16 176/65 H 96 07/01/23 05:44 165/52 H 07/01/23 04:39 98.4 F 61 14 186/54 H 96 06/30/23 19:40 98.1 F 61 16 147/65 H 98 06/30/23 17:13 62 Intake/Output Intake/Output: Intake & Output 06/28/23 06/29/23 06/30/2307/01/23 23:59 23:59 23:59 23:59 Intake Total 1840 220 800 0 Output Total 0 1100 Balance 1840 220 800 -1100 Meds/Results Medications: Active Medications Generic Name Dose Route Start Last Admin Trade Name Freq PRN Reason Stop Dose Admin Acetaminophen 500 mg 06/29/23 00:26 06/29/23 00:35 Acetaminophen 500 Mg Tablet PO 500 mg Q6H PRN Administration Mild Pain (1-3) or Fever Calcium Carbonate 200 mg 06/28/23 20:09 06/29/23 06:32 Calcium Carbonate (Tums) 500 Mg (200 Mg Elemental) PO 200 mg Q6H PRN Administration Indigestion Carvedilol 6.25 mg 06/26/23 17:00 07/01/23 08:33 Carvedilol 6.25 Mg Tablet PO Not Given BID ANDRÉS Clonazepam 1 mg 06/27/23 18:28 06/30/23 20:34 Clonazepam (*Crx) 0.5 Mg Tablet PO 0.5 mg BID PRN Administration Anxiety Furosemide 40 mg 06/26/23 17:00 07/01/23 08:33 Furosemide 40 Mg Tablet PO Not Given BID ANDRÉS Gabapentin 300 mg 06/26/23 21:00 06/30/23 20:35 Gabapentin 300 Mg Capsule PO 300 mg HS ANDRÉS Administration Guaifenesin 600 mg 06/27/23 21:00 07/01/23 08:33 Guaifenesin 12 Hr 600 Mg Tabcr PO Not Given Q12HR ANDRÉS Guaifenesin/Dextromethorphan 10 ml 06/27/23 14:45 06/29/23 22:17 Guaifenesin/Dextromethorphan 10 Ml Udc PO 10 ml Q4H PRN Administration Cough Heparin Sodium (Porcine) 5,000 units 06/25/23 21:00 07/01/23 08:41 Heparin Sodium 5,000 Units/Ml Vial SUB-Q Not Given Q12HR ANDRÉS Hydralazine HCl 10 mg 06/25/23 15:57 07/01/23 04:58 Hydralazine Hcl 20 Mg/Ml Vial IV PUSH 10 mg Q6H PRN Administration SBP > 165 or DBP > 105 Hydralazine HCl 25 mg 06/26/23 17:00 07/01/23
--- NOTE | 2023-07-01 12:16 | P.PNNP_ITS ---
Progress Note: A&P Assessment and Plan (1) End stage renal disease: Code(s): N18.6 - End stage renal disease Status: Chronic Assessment and Plan: * HD tomorrow * normally does HD on Mondays and Fridays * follow electrolytes, volume status, and clearance (2) Small bowel obstruction: Code(s): K56.609 - Unspecified intestinal obstruction, unspecified as to partial versus complete obstruction Status: Acute Assessment and Plan: * as evidenced by history and imaging studies * s/p NG tube placement for decompression * NG tube placed again overnight () * Surgery following * small bowel follow-through ordered * continue current therapy (3) Essential hypertension: Code(s): I10 - Essential (primary) hypertension Status: Chronic Assessment and Plan: * noted fluctuations since admission * suspect pain issues playing a role along with inability to take po BP medications * PRN IV medications (i.e. hydralazine or labetalol) and back on oral BP medications * follow trend of hemodynamics (4) Mesenteric mass: Code(s): K63.89 - Other specified diseases of intestine Status: Acute Assessment and Plan: * noted on previous CT scan done on 11/26/22 * appears unchanged Will continue to follow. Subjective Date/time seen: 07/01/23 12:16 Interval history: Follow-up for end stage renal disease on hemodialysis. Worsening symptoms noted as diet being advanced; NG tube placed again as KUB overnight noted diffusely gas filled/distended small bowel and colon likely to be ileus; a bit down by her lack of progress in the last 24 hours. Exam Narrative: General: thin WD/WN female in NAD Heart: normal S1 and S2; no rub Lungs: clear to auscultation Abdomen: soft, mild TTP, nondistended, positive bowel sounds Extremities: no cyanosis or clubbing; no edema Skin: warm and dry Objective Data Vital Signs Vital Signs: Vital Signs Temp Pulse Resp BP Pulse Ox 07/01/23 11:52 98.8 F 63 16 176/65 H 96 07/01/23 05:44 165/52 H 07/01/23 04:39 98.4 F 61 14 186/54 H 96 06/30/23 19:40 98.1 F 61 16 147/65 H 98 06/30/23 17:13 62 Intake/Output Intake/Output: Intake & Output 06/28/23 06/29/23 06/30/23 07/01/23 23:59 23:59 23:59 23:59 Intake Total 1840 220 800 0 Output Total 0 1100 Balance 1840 220 800 -1100 Meds/Results Medications: Active Medications Generic Name Dose Route Start Last Admin Trade Name Freq PRN Reason Stop Dose Admin Acetaminophen 500 mg 06/29/23 00:26 06/29/23 00:35 Acetaminophen 500 Mg Tablet PO 500 mg Q6H PRN Administration Mild Pain (1-3) or Fever Calcium Carbonate 200 mg 06/28/23 20:09 06/29/23 06:32 Calcium Carbonate (Tums) 500 Mg (200 Mg Elemental) PO 200 mg Q6H PRN Administration Indigestion Carvedilol 6.25 mg 06/26/23 17:00 07/01/23 08:33 Carvedilol 6.25 Mg Tablet PO Not Given BID ANDRÉS Clonazepam 1 mg 06/27/23 18:28 06/30/23 20:34 Clonazepam (*Crx) 0.5 Mg Tablet PO 0.5 mg BID PRN Administration Anxiety Furo
--- NOTE | 2023-07-01 13:17 | PC.NURSE ---
Pt back to room following SBS
[2023-07-01 14:52] VITALS: BP 176/65; PULSE 63; RESP 16; TEMP 37.1; O2SAT 96
[2023-07-01 17:25] VITALS: BP 156/58
[2023-07-01 20:15] VITALS: BP 175/67; PULSE 59; RESP 16; TEMP 36.6; O2SAT 95
[2023-07-01 21:40] VITALS: BP 170/65
[2023-07-02] VITALS (20 sets, daily range): BP systolic 140–214; BP diastolic 50–101; PULSE 60–82; RESP 14–18; TEMP 36.4–37; O2SAT 98–100
--- NOTE | 2023-07-02 02:57 | PC.NURSE ---
Verified with patient that it is ok if her sister Mariella receives information over the phone about her condition. Mariella's number added to chart.
[2023-07-02 05:59] LABS: Basophils Absolute Auto 0.1 K/mm3 (0.0-0.1); Basophils Percent Auto 0.6 % (0.2-1.2); Eosinophils Absolute Auto 0.3 K/mm3 (0-0.3); Hematocrit 36.1 % (37.0-47.0); Hemoglobin 11.3 g/dL (12.0-15.0); Immature Granulocyte Absolute 0.03 K/mm3 (0.00-0.031); Immature Granulocyte Percent A 0.4 % (0-0.5); Lymphocytes Absolute Auto 1.26 K/mm3 (0.9-3.2); Lymphocytes Percent Auto 16.3 % (18.3-44.2); Mean Corpuscular HGB Conc 31.3 g/dl (32-36); Mean Corpuscular Hemoglobin 30.1 pg (26-34); Mean Platelet Volume 10.9 fl (7.4-10.4); Monocytes Absolute Auto 0.9 K/mm3 (0.1-0.6); Neutrophils Absolute Auto 5.2 K/mm3 (1.3-6.7); Neutrophils Percent Auto 67.7 % (45.5-73.1); Platelet Count Result 201 k/mm3 (150-375); Red Blood Count 3.76 M/mm3 (4.2-5.4); Red Cell Distribution Width 13.3 % (11.5-14.5); White Blood Count 7.7 K/mm3 (4.5-10.0)
[2023-07-02] MEDS: hydrALAZINE HCL 20 MG/ML VIAL 10 MG IV PUSH ×2 (06:18→12:49)
[2023-07-02 06:25] LABS: Alanine Aminotransferase 21 U/L (6-35); Albumin Level 3.9 g/dL (3.5-5.1); Alkaline Phosphatase 65 U/L (38-126); Anion Gap 15 mmol/L (8-16); Aspartate Amino Transferase 28 U/L (14-36); Bilirubin,Total 0.7 mg/dL (0.2-1.3); Blood Urea Nitrogen 29 mg/dL (7-17); Carbon Dioxide 22 mmol/L (22-30); Chloride 105 mmol/L (98-107); Estimated CRCL calculation 9 ml/min; Estimated Glomerular Filt Rate 10; Glucose 84 mg/dL (65-110); Potassium 3.6 mmol/L (3.4-5.0); Sodium 142 mmol/L (137-145)
[2023-07-02] MEDS: EPOETIN ALFA-EPBX 4,000 UNITS/ML VIAL 4000 UNITS IV PUSH (10:52)
[2023-07-02] MEDS: SODIUM CHLORIDE 0.9% IV 1,000 ML 999 ML IV CONT (10:52)
--- NOTE | 2023-07-02 10:52 | PM.PNNEP ---
Progress Note: A&P Assessment and Plan (1) End stage renal disease: Code(s): N18.6 - End stage renal disease Status: Chronic Assessment and Plan: HD today normally does HD on Mondays and Fridays follow electrolytes, volume status, and clearance (2) Small bowel obstruction: Code(s): K56.609 - Unspecified intestinal obstruction, unspecified as to partial versus complete obstruction Status: Acute Assessment and Plan: as evidenced by history and imaging studies s/p NG tube placement for decompression NG tube placed again overnight () Surgery following small bowel follow-through ordered continue current therapy (3) Essential hypertension: Code(s): I10 - Essential (primary) hypertension Status: Chronic Assessment and Plan: noted fluctuations since admission suspect pain issues playing a role along with inability to take po BP medications PRN IV medications (i.e. hydralazine or labetalol) and back on oral BP medications follow trend of hemodynamics (4) Mesenteric mass: Code(s): K63.89 - Other specified diseases of intestine Status: Acute Assessment and Plan: noted on previous CT scan done on 11/26/22 appears unchanged Will continue to follow. Subjective Date/time seen: 07/02/23 10:52 Interval history: Follow-up for end stage renal disease on hemodialysis. Tolerating hemodialysis treatment at the time of my visit (seen on HD at 10:48AM); small bowel series yesterday was negative; plan clamping NGT and advancing diet again later today. Exam Narrative: General: thin WD/WN female in NAD Heart: normal S1 and S2; no rub Lungs: clear to auscultation Abdomen: soft, mild TTP, nondistended, positive bowel sounds Extremities: no cyanosis or clubbing; no edema Skin: warm and intact Objective Data Vital Signs Vital Signs: Vital Signs Temp Pulse Resp BP Pulse Ox 07/02/23 10:45 66 170/77 H 07/02/23 10:30 74 183/77 H 07/02/23 10:15 69 207/79 H 07/02/23 10:00 70 172/85 H 07/02/23 09:45 72 176/80 H 07/02/23 09:30 70 170/80 H 07/02/23 09:15 72 174/81 H 07/02/23 09:00 68 167/101 H 07/02/23 08:49 67 194/80 H 07/02/23 08:37 98.4 F 82 16 214/82 H 07/01/23 21:40 170/65 H 07/01/23 20:15 97.9 F 59 L 16 175/67 H 95 07/01/23 17:25 156/58 H 07/01/23 14:52 98.8 F 63 16 176/65 H 96 Intake/Output Intake/Output: Intake & Output 06/29/23 06/30/23 07/01/23 07/02/23 23:59 23:59 23:59 23:59 Intake Total 220 800 0 Output Total 0 1100 750 Balance 220 800 -1100 -750 Meds/Results Medications: Active Medications Generic Name Dose Route Start Last Admin Trade Name Freq PRN Reason Stop Dose Admin Acetaminophen 500 mg 06/29/23 00:26 06/29/23 00:35 Acetaminophen 500 Mg Tablet PO 500 mg Q6H PRN Administration Mild Pain (1-3) or Fever Calcium Carbonate 200 mg 06/28/23 20:09 06/29/23 06:32 Calcium Carbonate (Tums) 500 Mg (200 Mg Elemental) PO 200 mg Q6H PRN Administration Indigestion Camphor/Menthol/Phenol 1 applic 07/01/23 20:35 Alum/Camp/Menth/Phenol/Salicy (Carmex) 7.5 Gm Jar TOPICAL PRN PRN Dry Lips Carvedilol 6.25 mg 06/26/23 17:00 07/01/23 23:22 Carvedilol 6.25 Mg Tablet PO Not Given BID ANDRÉS Clonazepam 1 mg 06/27/23 18:28 06/30/23 20:34 Clonazepam (*Crx) 0.5 Mg Tablet PO 0.5 mg BID PRN Administration Anxiety Furosemide 40 mg 06/26/23 17:00 07/01/23 23:22 Furosemide 40 Mg Tablet PO Not Given BID ANDRÉS Gabapentin 300 mg 06/26/23 21:00 07/01/23 19:58 Gabapentin 300 Mg Capsule PO Not Given HS ANDRÉS Guaifenesin 600 mg 06/27/23 21:00 07/01/23 19:58 Guaifenesin 12 Hr 600 Mg Tabcr PO Not Given Q12HR ANDRÉS Guaifenesin/Dextromethorphan 10 ml 06/27/23 14:45 06/29/23 22:17 Guaifenesin/Dextromethorphan 10 Ml Udc PO
--- NOTE | 2023-07-02 11:31 | PCNFU ---
Nutrition Follow-Up Complete: Inadequate Oral Intake as related to SBO as evidenced by NPO. Adequate Intake of at least 75% of meals/supplements - Not meeting goal Goal: Pt current nutrition is NPO. Nutrition recommendation: Possible PPN if unable to advance diet: Clinmix 4.25/5 with lipids @ goal 80 ml/h: 1153 kcal, 82 g protein, 2170 ml total volume Last recorded weight is 63 kg. Bowel Motility: +1 BM 07/02/23 Labs Reviewed: Hgb 11,3m Hct 36.1, BUN 29. Cre 4.4 Meds Noted: Lasix, Zofran Skin: No pressure breakdown Additional Notes: Unable to advance diet; may want to try PPN until diet can be advanced, as pt has been unable to eat and NPO/clear liquids combined [address] will monitor weight, labs, skin, oral intake every 5 days.
--- NOTE | 2023-07-02 11:38 | PCDIET ---
TPN orders if needed: PPN Clinmix 4.25.5 w/lipids @ 80 ml/h: 1153 kcal, 82 g protein, 2170 ml free water.
--- NOTE | 2023-07-02 12:31 | PC.NURSE ---
[employer] spoke with DAVION Segovia regarding pt crying and stating its her anxiety . Instructed to give po clonazepam and clamp NG for 1 hr after administration
[2023-07-02] MEDS: clonazePAM (*CRX) 0.5 MG TABLET 1 MG PO ×2 (12:37→20:03)
--- NOTE | 2023-07-02 16:06 | PM.PNGS ---
Progress Note: A&P Assessment and Plan (1) Small bowel obstruction: Code(s): K56.609 - Unspecified intestinal obstruction, unspecified as to partial versus complete obstruction Status: Acute Assessment and Plan: SBS with normal transit to the colon, no bowel obstruction. Will remove NG and start liquids. Advance diet as tolerated. Plan I have discussed the patient's case and plan of care with Dr. Webb. Subjective Subjective Date/Time Seen: 07/02/23 16:06 Patient reports: no new complaints, feels better, pain is less, flatus and bowel movement Interval history: Chart reviewed since last seen. She had her NG tube replaced through the weekend. She had a small bowel series today and is having multiple bowel movements. No abdominal pain or nausea at this time. She is tearful and anxious that she reports is due to discomfort from coughing/phlegm production during dialysis. Exam Const: General: comfortable and no acute distress Orientation/consciousness: patient oriented x3 GI: Inspection: non-distended GI Palp: Yes Soft to palpation, No Tenderness to palpation present (GI), No Guarding due to palpation present (GI) and No Rebound tenderness present Auscultation: normal bowel sounds Objective Data Vital Signs Vital Signs: Vital Signs - 24 hr 07/01/23 17:25 07/01/23 20:15 07/01/23 21:40 Temperature 97.9 F Pulse Rate 59 L Respiratory Rate 16 Blood Pressure 156/58 H 175/67 H 170/65 H Pulse Oximetry 95 07/02/23 08:37 07/02/23 08:49 07/02/23 09:00 Temperature 98.4 F Pulse Rate 82 67 68 Respiratory Rate 16 Blood Pressure 214/82 H 194/80 H 167/101 H Pulse Oximetry 07/02/23 09:15 07/02/23 09:30 07/02/23 09:45 Temperature Pulse Rate 72 70 72 Respiratory Rate Blood Pressure 174/81 H 170/80 H 176/80 H Pulse Oximetry 07/02/23 10:00 07/02/23 10:15 07/02/23 10:30 Temperature Pulse Rate 70 69 74 Respiratory Rate Blood Pressure 172/85 H 207/79 H 183/77 H Pulse Oximetry 07/02/23 10:45 07/02/23 11:00 07/02/23 11:15 Temperature Pulse Rate 66 68 69 Respiratory Rate Blood Pressure 170/77 H 163/64 H 179/89 H Pulse Oximetry 07/02/23 11:30 07/02/23 11:45 07/02/23 12:05 Temperature 98.2 F Pulse Rate 68 74 63 Respiratory Rate 18 Blood Pressure 160/76 H 162/82 H 190/73 H Pulse Oximetry 07/02/23 11:58 07/02/23 12:48 07/02/23 13:43 Temperature 98.3 F Pulse Rate 73 64 Respiratory Rate 18 Blood Pressure 166/75 H 170/65 H 164/62 H Pulse Oximetry 100 Intake/Output Intake/Output: Intake & Output 06/29/23 06/30/23 07/01/23 07/02/23 23:59 23:59 23:59 23:59 Intake Total 220 800 0 Output Total 0 1100 750 Balance 220 800 -1100 -750 Meds/Results Medications: Active Medications Generic Name Dose Route Start Last Admin Trade Name Freq PRN Reason Stop Dose Admin Acetaminophen 500 mg 06/29/23 00:26 06/29/23 00:35 Acetaminophen 500 Mg Tablet PO 500 mg Q6H PRN Administration Mild Pain (1-3) or Fever Calcium Carbonate 200 mg 06/28/23 20:09 06/29/23 06:32 Calcium Carbonate (Tums) 500 Mg (200 Mg Elemental) PO 200 mg Q6H PRN Administration Indigestion Camphor/Menthol/Phenol 1 applic 07/01/23 20:35 Alum/Camp/Menth/Phenol/Salicy (Carmex) 7.5 Gm Jar TOPICAL PRN PRN Dry Lips Carvedilol 6.25 mg 06/26/23 17:00 07/02/23 12:12 Carvedilol 6.25 Mg Tablet PO Not Given BID ANDRÉS Clonazepam 1 mg 06/27/23 18:28 07/02/23 12:37 Clonazepam (*Crx) 0.5 Mg Tablet PO 1 mg BID PRN Administration Anxiety Furosemide 40 mg 06/26/23 17:00 07/02/23 12:13 Furosemide 40 Mg Tablet PO Not Given BID ANDRÉS Gabapentin 300 mg 06/26/23 21:00 07/01/23 19:58 Gabapentin 300 Mg Capsule PO Not Given HS ANDRÉS Guaifenesin 600 mg 06/27/23 21:00 07/02/23 12:13 Guaifenesin 12 Hr 600 Mg Tabcr PO Not Given Q12HR ANDRÉS Guaifenesin/Dextromethorphan 10 ml 06/27
--- NOTE | 2023-07-02 16:26 | P.PNIM_ITS ---
Progress Note: A&P Assessment and Plan (1) Small bowel obstruction: Code(s): K56.609 - Unspecified intestinal obstruction, unspecified as to partial versus complete obstruction Status: Acute Assessment and Plan: 06/26/23: * Patient has had multiple abdominal surgeries and prior small-bowel obstructions. * Conservative treatment with NG tube decompression and bowel rest. * Avoid over-hydration as she has on dialysis. * Analgesics and antiemetics are available as needed. * Continue serial abdominal exams and imaging. * General surgery consulted. * NG tube clamped and clear liquids at dinner. 06/27/23: * Continue with conservative management. * We will clamp NG tube today and start clear liquid see how she tolerates. * General surgery following. 06/28/23: * NG tube removed. Patient tolerating clears. * Will advance diet today and see how she tolerates. 06/29/23: * Patient complaining of increased abdominal pain, increased nausea, increased distension of her abdomen today. * Patient has been passing gas, she has had a small bowel movement last night, her bowel sounds are hypoactive currently. * Will back off on her diet again today to a clear liquid diet as tolerated * Continue Zofran for nausea * Encourage ambulation in the halls * Will go ahead and repeat a CT scan of her abdomen pelvis today considering her abdomen is firm and she is more symptomatic today. 06/30/23: * Patient's symptoms have improved significantly today. She is still reporting some nausea but she is contributing that to her cough with phlegm more than her abdominal issue. * She is passing gas and had a small bowel movement overnight, her bowel sounds are normoactive and her abdomen is slightly distended this morning, nontender. * CT scan her abdomen pelvis shown small bowel obstruction versus ileus * Continue to encourage ambulation in the halls, patient reports she has been walking the halls at least once an hour while she is awake. * General surgery still following * Plan to increase her diet again today and see how she does 07/01/23: * Patient having symptoms through the night requiring an NG tube to be replaced. * General surgery seen patient today and recommended an SBS, results are pending * Will defer to General surgery team for any increase in her diet 07/02/2023: * SP is normal according to General surgery * plan to remove NG tube again and advanced diet as tolerated, we will start with clears * will touch base with General surgery team tomorrow regarding plan of care going forward. (2) Mesenteric mass: Code(s): K63.89 - Other specified diseases of intestine Status: Acute Assessment and Plan: 06/26/23: * Small central mesenteric mass appears unchanged from CT in November 2022. * May need outpatient monitoring. 06/27/23: * Of note (3) End-stage renal disease on hemodialysis: Code(s): N18.6 - End stage renal disease; Z99.2 - Dependence on renal dialysis Status: Chronic Assessment and Plan: 06/26/23: * Patient has dialysis on Sunday, Sunday, Sunday. * Stable volume status. * No acute electrolyte abnormalities. * Nephrology consulted. 06/27/23: * Patient had HD today, no UF removal * BUN 22, creatinine 2.9, potassium 4.0 * Nephrology following * has right chest port a cath 06/28/23: * Plan for HD tomorrow * BUN 31, Creatinine 3.70, K+ 3.7 * Nephrology following 06/29/23: * BUN 33, creatinine 4.4, potassium 3.7 * Plan for HD today * Nephrology following
--- NOTE | 2023-07-02 16:26 | PM.IMPN ---
Progress Note: A&P Assessment and Plan (1) Small bowel obstruction: Code(s): K56.609 - Unspecified intestinal obstruction, unspecified as to partial versus complete obstruction Status: Acute Assessment and Plan: 06/26/23: Patient has had multiple abdominal surgeries and prior small-bowel obstructions. Conservative treatment with NG tube decompression and bowel rest. Avoid over-hydration as she has on dialysis. Analgesics and antiemetics are available as needed. Continue serial abdominal exams and imaging. General surgery consulted. NG tube clamped and clear liquids at dinner. 06/27/23: Continue with conservative management. We will clamp NG tube today and start clear liquid see how she tolerates. General surgery following. 06/28/23: NG tube removed. Patient tolerating clears. Will advance diet today and see how she tolerates. 06/29/23: Patient complaining of increased abdominal pain, increased nausea, increased distension of her abdomen today. Patient has been passing gas, she has had a small bowel movement last night, her bowel sounds are hypoactive currently. Will back off on her diet again today to a clear liquid diet as tolerated Continue Zofran for nausea Encourage ambulation in the halls Will go ahead and repeat a CT scan of her abdomen pelvis today considering her abdomen is firm and she is more symptomatic today. 06/30/23: Patient's symptoms have improved significantly today. She is still reporting some nausea but she is contributing that to her cough with phlegm more than her abdominal issue. She is passing gas and had a small bowel movement overnight, her bowel sounds are normoactive and her abdomen is slightly distended this morning, nontender. CT scan her abdomen pelvis shown small bowel obstruction versus ileus Continue to encourage ambulation in the halls, patient reports she has been walking the halls at least once an hour while she is awake. General surgery still following Plan to increase her diet again today and see how she does 07/01/23: Patient having symptoms through the night requiring an NG tube to be replaced. General surgery seen patient today and recommended an SBS, results are pending Will defer to General surgery team for any increase in her diet 07/02/2023: SP is normal according to General surgery plan to remove NG tube again and advanced diet as tolerated, we will start with clears will touch base with General surgery team tomorrow regarding plan of care going forward. (2) Mesenteric mass: Code(s): K63.89 - Other specified diseases of intestine Status: Acute Assessment and Plan: 06/26/23: Small central mesenteric mass appears unchanged from CT in November 2022. May need outpatient monitoring. 06/27/23: Of note (3) End-stage renal disease on hemodialysis: Code(s): N18.6 - End stage renal disease; Z99.2 - Dependence on renal dialysis Status: Chronic Assessment and Plan: 06/26/23: Patient has dialysis on Sunday, Sunday, Sunday. Stable volume status. No acute electrolyte abnormalities. Nephrology consulted. 06/27/23: Patient had HD today, no UF removal BUN 22, creatinine 2.9, potassium 4.0 Nephrology following has right chest port a cath 06/28/23: Plan for HD tomorrow BUN 31, Creatinine 3.70, K+ 3.7 Nephrology following 06/29/23: BUN 33, creatinine 4.4, potassium 3.7 Plan for HD today Nephrology following 06/30/23: Patient had dialysis yesterday BUN 15, creatinine 3.0, potassium 3.9 Nephrology following Plan for dialysis tomorrow 07/01/23: Nephrology following Patient will have HD tomorrow BUN 22, creatinine 3.8, potassium 3.3 Will continue to trend labs 07/02/2023: nephrology following patient had HD today BUN 11, creatinine 0.7 continue to trend labs (4) Essential hypertension: Code(s): I10 - Essential (primary) hypertension
[2023-07-02] MEDS: carvediloL 6.25 MG TABLET PO (18:12)
[2023-07-02] MEDS: FUROSEMIDE 40 MG TABLET PO (18:12)
[2023-07-02] MEDS: hydrALAZINE HCL 25 MG TABLET PO (18:12)
[2023-07-02] MEDS: GABAPENTIN 300 MG CAPSULE PO (20:03)
[2023-07-03 05:50] VITALS: BP 210/60; PULSE 56; RESP 20; TEMP 36.5; O2SAT 97
[2023-07-03 05:53] LABS: Basophils Absolute Auto 0.1 K/mm3 (0.0-0.1); Basophils Percent Auto 0.9 % (0.2-1.2); Eosinophils Absolute Auto 0.5 K/mm3 (0-0.3); Eosinophils Percent Auto 5.3 % (0-4.4); Hematocrit 37.5 % (37.0-47.0); Hemoglobin 11.7 g/dL (12.0-15.0); Immature Granulocyte Absolute 0.09 K/mm3 (0.00-0.031); Lymphocytes Absolute Auto 1.81 K/mm3 (0.9-3.2); Lymphocytes Percent Auto 19.6 % (18.3-44.2); Mean Corpuscular HGB Conc 31.2 g/dl (32-36); Mean Corpuscular Hemoglobin 30.2 pg (26-34); Mean Corpuscular Volume 96.6 fl (80-100); Mean Platelet Volume 10.8 fl (7.4-10.4); Monocytes Absolute Auto 1.1 K/mm3 (0.1-0.6); Monocytes Percent Auto 11.4 % (2.6-8.5); Neutrophils Absolute Auto 5.7 K/mm3 (1.3-6.7); Neutrophils Percent Auto 61.8 % (45.5-73.1); Platelet Count Result 229 k/mm3 (150-375); Red Blood Count 3.88 M/mm3 (4.2-5.4); Red Cell Distribution Width 13.6 % (11.5-14.5); White Blood Count 9.2 K/mm3 (4.5-10.0)
[2023-07-03] MEDS: hydrALAZINE HCL 20 MG/ML VIAL 10 MG IV PUSH (06:45)
[2023-07-03 07:46] LABS: Alanine Aminotransferase 17 U/L (6-35); Alkaline Phosphatase 73 U/L (38-126); Anion Gap 11 mmol/L (8-16); Aspartate Amino Transferase 23 U/L (14-36); Bilirubin,Total 0.6 mg/dL (0.2-1.3); Blood Urea Nitrogen 17 mg/dL (7-17); Calcium 10.1 mg/dL (8.4-10.2); Carbon Dioxide 23 mmol/L (22-30); Chloride 102 mmol/L (98-107); Estimated CRCL calculation 12 ml/min; Estimated Glomerular Filt Rate 14; Glucose 85 mg/dL (65-110); Sodium 136 mmol/L (137-145)
[2023-07-03 08:29] VITALS: BP 191/56; PULSE 58
[2023-07-03] MEDS: NIFEdipine 30 MG TAB.ER.24 60 MG PO (08:29)
[2023-07-03] MEDS: guaiFENesin 12 HR 600 MG TABCR PO (08:29)
[2023-07-03] MEDS: carvediloL 6.25 MG TABLET PO (08:29)
[2023-07-03] MEDS: hydrALAZINE HCL 25 MG TABLET PO (08:30)
[2023-07-03] MEDS: FUROSEMIDE 40 MG TABLET PO (08:30)
[2023-07-03] MEDS: LOSARTAN POTASSIUM 25 MG TABLET PO (08:30)
--- NOTE | 2023-07-03 08:54 | PM.DS ---
DS: Admitting Diagnosis Discharge Date 07/03/23 Admitting Diagnosis Small bowel obstruction Mesenteric mass ESRD on HD Hypercalcemia Essential hypertension Anxiety DS: Discharge Diagnosis Discharge Diagnosis (1) Small bowel obstruction: Code(s): K56.609 - Unspecified intestinal obstruction, unspecified as to partial versus complete obstruction Status: Acute (2) Mesenteric mass: Code(s): K63.89 - Other specified diseases of intestine Status: Acute (3) End-stage renal disease on hemodialysis: Code(s): N18.6 - End stage renal disease; Z99.2 - Dependence on renal dialysis Status: Chronic (4) Essential hypertension: Code(s): I10 - Essential (primary) hypertension Status: Chronic (5) Anxiety: Code(s): F41.9 - Anxiety disorder, unspecified Status: Acute DS: Summary Hospital Course Reason for hospitalization: Small bowel obstruction Hospital Course: This is a 68 year old female who presented to the hospital on 06/25/2023 with complaints of abdominal pain.? Patient has had history of multiple abdominal surgeries and bowel obstructions in the past.? Workup in the hospital included a CT scan of the abdomen and pelvis which showed findings consistent with small-bowel obstruction, a suspected small central mesenteric mass was also present and unchanged from previous imaging.? Patient also had a KUB done which showed dilated small bowel, consistent with a small-bowel obstruction in the NG tube was in the stomach.? Patient had an NG tube inserted and placed to low intermittent suction with high-output the 1st day. Then was discontinued.? General surgery was consulted and is following.? Patient also has end-stage renal disease on HD Sunday.? Nephrology was consulted as well. Patient was tolerating an advancement of her diet with clear liquids but became symptomatic with any additional advancement. On 06/30/23 she had NG tube placed again and another KUB which shown persistent diffusely gas filled distended small bowel and colon, likely ileus. On 07/01/23 she had an SBS which shown contrast moving through her bowels, essentially normal. NG tube was discontinued again and we advanced her back to a clear liquid diet. General surgery is fine with discharging the patient home today. On examination today patient is alert and oriented x3, sitting in the chair, eating her lunch. She has been tolerating solid food, has been passing gas, and has had BM's. Her abdomen is less distended. Labs today reveal WBC 9.2, Hgb 11.7, Na+ 136, K+ 4.0, BUN 17, Creatinine 3.30, liver enzymes are normal, BG ranging 84-98. Patient had HD yesterday. Patient is stable for discharge. She will need to follow up with PCP in 1 week. I prescribed Zofran for use at home, for nausea. I also prescribed tessalon perles for her cough. Final diagnosis: Small bowel obstruction Status at Discharge Cognitive/behavioral status at discharge: Alert and oriented x3 Functional status at discharge: independent ambulation Overall status at discharge: patient is not back to baseline Time Spent with Patient Time attestation: Total time spent providing and/or coordinating discharge services: Time spent: Greater than 30 minutes Exam Narrative: General:Chronically ill appearing, no acute distress, plesant Head: atraumatic, no encephalopathy Eyes: EOMI, PERRLA, sclera clear ENT: moist mucous membranes, nasal passages clear Neck: supple, no JVD, no adenopathy, trachea midline Cardiac: Normal S1 and S2. No murmur, gallops or friction rubs, peripheral pulses intact. Respiratory: Lungs clear to auscultation, no adventitious lung sounds Gastrointestinal: Abdomen soft, non-distended, nontender, bowel sounds are normoactive, she is passing gas, she has had normal BM's, and is tolerating solid foods. : voiding without difficulty. Extremities: moves all extremities well, no edema, good ROM, strength 5/5 Skin: clean, dry, intact. No w
[2023-07-03 12:15] LABS: Hepatitis B Core Ab Total Nonreactive (Nonreactive)
--- NOTE | 2023-07-03 12:15 | PM.PNGS ---
Progress Note: A&P Assessment and Plan (1) Small bowel obstruction: Code(s): K56.609 - Unspecified intestinal obstruction, unspecified as to partial versus complete obstruction Status: Acute Assessment and Plan: Resolved. Tolerating solid foods and bowels are moving. Okay to discharge from a surgical standpoint. F/u PRN. Plan I have discussed the patient's case and plan of care with Dr. Webb. Subjective Subjective Date/Time Seen: 07/03/23 12:15 Patient reports: no new complaints, feels better, tolerating a regular diet, flatus and bowel movement Interval history: Patient feeling better today. No abdominal pain, nausea, or vomiting. Bowels are moving. Exam GI: Inspection: non-distended GI Palp: Yes Soft to palpation, No Tenderness to palpation present (GI) and No Guarding due to palpation present (GI) Auscultation: normal bowel sounds Objective Data Vital Signs Vital Signs: Vital Signs - 24 hr 07/02/23 12:48 07/02/23 13:43 07/02/23 18:12 Temperature 98.3 F Pulse Rate 64 64 Respiratory Rate 18 Blood Pressure 170/65 H 164/62 H Pulse Oximetry 100 07/02/23 21:30 07/03/23 05:50 07/03/23 08:29 Temperature 97.5 F L 97.7 F Pulse Rate 60 56 L Respiratory Rate 14 20 Blood Pressure 140/50 L 210/60 H 191/56 H Pulse Oximetry 98 97 07/03/23 08:29 Temperature Pulse Rate 58 L Respiratory Rate Blood Pressure Pulse Oximetry Intake/Output Intake/Output: Intake & Output 06/30/23 07/01/23 07/02/23 07/03/23 23:59 23:59 23:59 23:59 Intake Total 800 0 440 Output Total 1100 750 Balance 800 -1100 -750 440 Meds/Results Medications: Active Medications Generic Name Dose Route Start Last Admin Trade Name Freq PRN Reason Stop Dose Admin Acetaminophen 500 mg 06/29/23 00:26 06/29/23 00:35 Acetaminophen 500 Mg Tablet PO 500 mg Q6H PRN Administration Mild Pain (1-3) or Fever Calcium Carbonate 200 mg 06/28/23 20:09 06/29/23 06:32 Calcium Carbonate (Tums) 500 Mg (200 Mg Elemental) PO 200 mg Q6H PRN Administration Indigestion Camphor/Menthol/Phenol 1 applic 07/01/23 20:35 Alum/Camp/Menth/Phenol/Salicy (Carmex) 7.5 Gm Jar TOPICAL PRN PRN Dry Lips Carvedilol 6.25 mg 06/26/23 17:00 07/03/23 08:29 Carvedilol 6.25 Mg Tablet PO 6.25 mg BID ANDRÉS Administration Clonazepam 1 mg 06/27/23 18:28 07/02/23 20:03 Clonazepam (*Crx) 0.5 Mg Tablet PO 1 mg BID PRN Administration Anxiety Furosemide 40 mg 06/26/23 17:00 07/03/23 08:30 Furosemide 40 Mg Tablet PO 40 mg BID ANDRÉS Administration Gabapentin 300 mg 06/26/23 21:00 07/02/23 20:03 Gabapentin 300 Mg Capsule PO 300 mg HS ANDRÉS Administration Guaifenesin 600 mg 06/27/23 21:00 07/03/23 08:29 Guaifenesin 12 Hr 600 Mg Tabcr PO 600 mg Q12HR ANDRÉS Administration Guaifenesin/Dextromethorphan 10 ml 06/27/23 14:45 06/29/23 22:17 Guaifenesin/Dextromethorphan 10 Ml Udc PO 10 ml Q4H PRN Administration Cough Heparin Sodium (Porcine) 5,000 units 06/25/23 21:00 07/03/23 08:30 Heparin Sodium 5,000 Units/Ml Vial SUB-Q Not Given Q12HR ANDRÉS Hydralazine HCl 10 mg 06/25/23 15:57 07/03/23 06:45 Hydralazine Hcl 20 Mg/Ml Vial IV PUSH 10 mg Q6H PRN Administration SBP > 165 or DBP > 105 Hydralazine HCl 25 mg 06/26/23 17:00 07/03/23 08:30 Hydralazine Hcl 25 Mg Tablet PO 25 mg BID ANDRÉS Administration Albumin Human 50 mls @ 999 mls/hr 06/26/23 06:49 Albutein IVPB 07/26/23 06:48 Q10M PRN HYPOTENSION Losartan Potassium 25 mg 06/27/23 09:00 07/03/23 08:30 Losartan Potassium 25 Mg Tablet PO 25 mg DAILY ANDRÉS Administration Nifedipine 60 mg 06/27/23 09:00 12/05/23 08:29 Nifedipine 30 Mg Tab.Er.24 PO 60 mg DAILY ANDRÉS Administration Ondansetron HCl 4 mg 06/25/23 09:15 06/30/23 21:00 Ondansetron Inj 4 Mg/2 Ml Vial IV PUSH 4 mg Q4H PRN Administration Nausea
[2023-07-03 14:00] VITALS: BP 139/55; PULSE 68; RESP 18; TEMP 36.4; O2SAT 98
[2023-07-04 16:33] LABS: Parathyroid Hormone Related Pr 21 pg/mL (11-20)
== END 2023-07-03 16:02 | disposition home or self-care (01) | DRG 388 ==
LOC: ANHED 07:44 → ANH3MEDSUR 09:35 → ANH3MED 09:57
PROVIDERS: Internal Medicine Critical Care Medicine; Internal Medicine Nephrology; Nurse Practitioner Family; Physician Assistant; Admitting Provider Internal Medicine; Emergency Provider Emergency Medicine; PCP Family Medicine; Visit Provider Nurse Practitioner Acute Care
DX: K56.699 Other intestinal obstruction unspecified as to partial versus complete obstruction (principal); N18.6 End stage renal disease; I12.0 Hypertensive chronic kidney disease with stage 5 chronic kidney disease or end stage renal disease; N39.0 Urinary tract infection, site not specified; I48.91 Unspecified atrial fibrillation; E03.9 Hypothyroidism, unspecified; E83.52 Hypercalcemia; F41.9 Anxiety disorder, unspecified; I73.9 Peripheral vascular disease, unspecified; I71.43 Infrarenal abdominal aortic aneurysm, without rupture; I25.10 Atherosclerotic heart disease of native coronary artery without angina pectoris; J44.9 Chronic obstructive pulmonary disease, unspecified; K63.89 Other specified diseases of intestine; R05.9 Cough, unspecified; Z99.2 Dependence on renal dialysis; Z79.82 Long term (current) use of aspirin; Z95.1 Presence of aortocoronary bypass graft; Z90.49 Acquired absence of other specified parts of digestive tract; Z96.0 Presence of urogenital implants; Z87.891 Personal history of nicotine dependence
CPT/HCPCS: 36415; 74018; 74176; 74250; 80048; 80053; 81001; 82652; 83519; 83605; 83690; 83735; 83970; 84100; 84443; 85025; 85027; 86704; 86706; 87086; 87340; 96361; 96374; 96375; 99285; A9270; G0257; J0360; J1644; J2060; J2270; J2405; J7030; J7040; Q5105

== ENCOUNTER 2024-04-09 17:10 | Inpatient (IN) | payer MEDICARE, OTHER, SELFPAY ==
--- NOTE | ~2024-04-09 | CT_ITS ---
CT abdomen pelvis wo con Ordering provider: Jazlyn Vanegas MD History: 68 years Female with . abdominal pain, concern for SBO . Comparison: None. Technique: CT abdomen and pelvis without IV and without oral contrast. Automated exposure control and iterative reconstruction technique were employed. The dose-length product was 287.34 mGy-cm. Findings: VISUALIZED LOWER CHEST: Atherosclerotic changes of the aorta coronary arteries. Pleural calcification in the right lung bases. Subsegmental atelectasis in the middle lobe area. UPPER ABDOMINAL ORGANS: Liver: Normal. Slightly dilated CBD measuring 1.5 cm. Gallbladder: Status post cholecystectomy. Spleen: Normal. Stomach/duodenum: Normal. Pancreas: Normal. Adrenals: Normal. Kidneys: Atrophic kidneys. Right kidney hydronephrotic changes with double-J stent. PELVIC ORGANS: The bladder is normal. BOWEL AND MESENTERY: Colon: No evidence of diverticulitis. Fluid is seen in the proximal colon. Appendix is not demonstrat ed. Small Bowel: Dilated small bowel loops are seen which may indicate ileus versus small bowel obstructi on. Follow-up advised. Peritoneum/mesentery: No free air or free fluid. No mesenteric lymphadenopathy . RETROPERITONEUM: Aneurysmal dilatation seen in the distal abdominal aorta measuring 2.7 cm.. Mild ath eromatous disease of the abdominal aorta. No retroperitoneal lymphadenopathy. MUSCULOSKELETAL: Superficial soft tissues: Postoperative changes in the anterior abdominal wall. Otherwise, The superf icial soft tissues are normal. Bifemoral stent is noted. Bones: Age appropriate degenerative changes of the spine. Left sacroiliitis. IMPRESSION: 1. Bilateral atrophic kidneys with the right double-J stent. Mild right hydronephrotic changes. 2. Pleural calcification in the right hemidiaphragm area. 3. Small bowel dilatation suggestive of ileus versus intestinal obstruction. Follow-up advised. 4. Aneurysmal dilatation of the distal aorta measuring 2.7 cm. Bifemoral stent. Reviewed, dictated and finalized at location A. IMPRESSION: 1. Bilateral atrophic kidneys with the right double-J stent. Mild right hydron ephrotic changes. 2. Pleural calcification in the right hemidiaphragm area. 3. Small bowel dilatation suggestive of ileus versus intestinal obstruction. F ollow-up advised. 4. Aneurysmal dilatation of the distal aorta measuring 2.7 cm. Bifemoral stent .
--- NOTE | ~2024-04-09 | XR_ITS ---
XR chest 1V portable Ordering provider: Marzena Limon MD History: 68 years Female with . SOB . Comparison: None. FINDINGS: MEDIASTINUM: The cardiac silhouette is not enlarged. Right permacath with the tip overlying the right atrium. Postoperative changes in the mediastinum. LUNGS: No infiltrates, effusions or pneumothorax. OTHER: No free air under the diaphragm. IMPRESSION: No acute cardiopulmonary pathology. Reviewed, dictated and finalized at location A.
[2024-04-09 17:13] VITALS: BP 134/55; PULSE 54; RESP 15; TEMP 36.4; O2SAT 98
--- NOTE | 2024-04-09 18:00 | ED.NAVMDI ---
HPI - Nausea/Vomiting/Diarrhea General Chief complaint: Nausea/Vomiting/Diarrhea <Rebecca King PA-C - Last Filed: 04/10/24 10:00> Stated complaint: N/V/D <Rebecca King PA-C - Last Filed: 04/10/24 10:00> Time Seen by Provider: 04/09/24 18:00 <Rebecca King PA-C - Last Filed: 04/10/24 10:00> Focused HPI: This is a 68 year old female that presents to the ER for possible bowel blockage. Reports she has had abdominal pain ongoing since Sunday. Reports she started having vomiting and diarrhea. Her last bowel movement was 2 days ago. Reports she was on Bactrim for a UTI prior to this starting. She only finished a couple days of this antibiotic due to abdominal discomfort. She does dialysis on Mondays and Fridays. Denies fevers. GENERAL: Chronically ill-appearing, well-nourished, and in no acute distress. HEAD: Normocephalic, atraumatic. CHEST: Clear to auscultation. ?No respiratory distress. HEART: Regular rate and rhythm.? NEURO: ?Alert and oriented x3. Patient screened in triage and initial orders placed.? ?Additional care and disposition to be based upon?diagnostic testing and treatment. <Rebecca King PA-C - Last Filed: 04/10/24 10:00> History of Present Illness HPI Narrative: 68-year-old female presenting with concerns for possible bowel obstruction. States that she has a history of bowel obstructions and she is scheduled for a biopsy tomorrow. Her oncologist wanted her to come in to be evaluated for SBO. States that she has been having some diarrhea and vomiting for the last 4-5 days. States that the vomiting has actually resolved and so has the diarrhea. States that she just has some mild diffuse abdominal pain. Has not vomited for the last 3 days. Is tolerating p.o. intake. No further complaints. <Jazlyn Vanegas MD - Last Filed: 04/10/24 22:05> Related Data Home medications: Home Medications Medication Instructions Recorded Confirmed aspirin 325 mg tablet 325 mg PO DAILY 11/26/22 04/10/24 carvedilol 6.25 mg tablet 6.25 mg PO BIDWM 11/26/22 04/10/24 clonazepam 1 mg tablet 0.5 mg PO BID PRN Anxiety 11/26/22 04/10/24 furosemide 40 mg tablet 40 mg PO BID 11/26/22 04/10/24 gabapentin 300 mg capsule 300 mg PO HS 11/26/22 04/10/24 hydralazine 25 mg tablet 25 mg PO BID 11/26/22 04/10/24 losartan 25 mg tablet 25 mg PO DAILY 11/26/22 04/10/24 nifedipine 60 mg tablet,extended 60 mg PO DAILY 11/26/22 04/10/24 release Colace 100 mg PO DAILY PRN Constipation 04/10/24 04/10/24 Miralax 17 g PO DAILY PRN Constipation 04/10/24 04/10/24 Vitamin D3 1,000 units PO DAILY 04/10/24 04/10/24 <Rebecca King PA-C - Last Filed: 04/10/24 10:00> Allergies/Adverse reactions: Allergies Allergy/AdvReac Type Severity Reaction Status Date / Time iohexol Allergy Mild Rash Verified 04/10/24 00:27 [From contrast - CT, X-RAY] fentanyl AdvReac Other Verified 04/10/24 00:27 <Rebecca King PA-C - Last Filed: 04/10/24 10:00> Review of Systems Review of Systems: All systems reviewed & are unremarkable except as noted in HPI and below <Jazlyn Vanegas MD - Last Filed: 04/10/24 22:05> [facility] Past Medical History Medical History: Medical History Anxiety Atrial fibrillation Carotid stenosis Most recent carotid Doppler July 2022: Less than 50% stenosis right internal carotid artery and greater than 70% stenosis of the left internal carotid artery. Coronary artery disease End-stage renal disease on hemodialysis Essential hypertension History of GI bleed Multiple and requiring transfusion. No longer on chronic anticoagulation due to bleeds History of small bowel obstruction Hypothyroidism Kidney stones Lung nodule Peripheral artery disease Moderate to severe bilateral lower extremity peripheral vascular disease noted on ABIs July 2022 <Reebcca King PA-C - Last Filed: 04/10/24 10:00> Surgical History Melo
[2024-04-09 18:16] LABS: Basophils Absolute Auto 0.1 K/mm3 (0.0-0.1); Basophils Percent Auto 1.2 % (0.2-1.2); Eosinophils Absolute Auto 0.2 K/mm3 (0-0.3); Eosinophils Percent Auto 1.9 % (0-4.4); Hemoglobin 10.9 g/dL (12.0-15.0); Immature Granulocyte Absolute 0.07 K/mm3 (0.00-0.031); Immature Granulocyte Percent A 0.7 % (0-0.5); Lymphocytes Absolute Auto 1.48 K/mm3 (0.9-3.2); Lymphocytes Percent Auto 15.5 % (18.3-44.2); Mean Corpuscular HGB Conc 32.1 g/dl (32-36); Mean Corpuscular Hemoglobin 29.3 pg (26-34); Mean Corpuscular Volume 91.4 fl (80-100); Mean Platelet Volume 11.2 fl (7.4-10.4); Monocytes Absolute Auto 0.8 K/mm3 (0.1-0.6); Neutrophils Absolute Auto 6.9 K/mm3 (1.3-6.7); Neutrophils Percent Auto 72.7 % (45.5-73.1); Platelet Count Result 258 k/mm3 (150-375); Red Blood Count 3.72 M/mm3 (4.2-5.4); Red Cell Distribution Width 13.7 % (11.5-14.5); White Blood Count 9.5 K/mm3 (4.5-10.0)
[2024-04-09 18:26] LABS: Alanine Aminotransferase 10 U/L (6-35); Albumin Level 4.5 g/dL (3.5-5.1); Alkaline Phosphatase 50 U/L (38-126); Anion Gap 24 mmol/L (4-12); Aspartate Amino Transferase 26 U/L (14-36); Bilirubin,Total 0.9 mg/dL (0.2-1.3); Blood Urea Nitrogen 49 mg/dL (7-17); Calcium 10.1 mg/dL (8.4-10.2); Carbon Dioxide 21 mmol/L (22-30); Chloride 89 mmol/L (98-107); Estimated CRCL calculation 6 ml/min; Estimated Glomerular Filt Rate 7; Glucose 72 mg/dL (65-110); Lipase 158 U/L (23-300); Potassium 3.9 mmol/L (3.4-5.0); Sodium 134 mmol/L (137-145)
[2024-04-09 18:32] LABS: INR 0.9; Prothrombin Time 13.1 Seconds (11.1-14.7)
[2024-04-09 18:34] LABS: Partial Thromboplastin Time 30.9 Seconds (22.3-36.8)
[2024-04-09 18:41] LABS: Add Urine Microscopic? YES; Appearance Urine Clear (Clear); Bacteria Urine None Seen /hpf; Bilirubin Urine Negative (Negative); Blood Urine Negative (Negative); Color Urine Yellow (Yellow); Glucose Urine UA Negative (Negative); Ketones Urine 1+ mg/dL (Negative); Leukocyte Esterase Ur 2+ LEU/UL (Negative); Nitrate Urine Negative (Negative); Protein Urine 2+ mg/dL (Negative); Squamous Epithelial Cell Urine Moderate /hpf (Few); WBC Urine 21-50 /hpf (0-3); pH Urine 6.5 (5.0-9.0)
--- NOTE | 2024-04-09 21:47 | PM.IMHP ---
H&P: HPI History of Present Illness Date/Time: 04/09/24 21:47 Chief Complaint: abdominal pain Narrative: This is a 68-year-old female with past medical history significant for peripheral vascular disease, coronary artery disease, atrial fibrillation, carotid stenosis, end-stage renal disease on hemodialysis. patient presents to the emergency room due to abdominal pain, abdominal distention, small bowel movements, poor per orally intake. Patient has been her usual state of health up until this moment recently completed a course of antibiotics. Preliminary workup was significant for CT of abdomen and pelvis with dilated bowel loops CT abdomen pelvis wo con Ordering provider: Jazlyn Vanegas MD History: 68 years Female with . abdominal pain, concern for SBO . Comparison: None. Technique: CT abdomen and pelvis without IV and without oral contrast. Automated exposure control and iterative reconstruction technique were employed. The dose-length product was 287.34 mGy-cm. Findings: VISUALIZED LOWER CHEST: Atherosclerotic changes of the aorta coronary arteries. Pleural calcification in the right lung bases. Subsegmental atelectasis in the middle lobe area. UPPER ABDOMINAL ORGANS: Liver: Normal. Slightly dilated CBD measuring 1.5 cm. Gallbladder: Status post cholecystectomy. Spleen: Normal. Stomach/duodenum: Normal. Pancreas: Normal. Adrenals: Normal. Kidneys: Atrophic kidneys. Right kidney hydronephrotic changes with double-J stent. PELVIC ORGANS: The bladder is normal. BOWEL AND MESENTERY: Colon: No evidence of diverticulitis. Fluid is seen in the proximal colon. Appendix is not demonstrated. Small Bowel: Dilated small bowel loops are seen which may indicate ileus versus small bowel obstruction. Follow-up advised. Peritoneum/mesentery: No free air or free fluid. No mesenteric lymphadenopathy. RETROPERITONEUM: Aneurysmal dilatation seen in the distal abdominal aorta measuring 2.7 cm.. Mild atheromatous disease of the abdominal aorta. No retroperitoneal lymphadenopathy. MUSCULOSKELETAL: Superficial soft tissues: Postoperative changes in the anterior abdominal wall. Otherwise, The superficial soft tissues are normal. Bifemoral stent is noted. Bones: Age appropriate degenerative changes of the spine. Left sacroiliitis. IMPRESSION: 1. Bilateral atrophic kidneys with the right double-J stent. Mild right hydronephrotic changes. 2. Pleural calcification in the right hemidiaphragm area. 3. Small bowel dilatation suggestive of ileus versus intestinal obstruction. Follow-up advised. 4. Aneurysmal dilatation of the distal aorta measuring 2.7 cm. Bifemoral stent. Review of Systems Review of Systems: abdominal pain, abdominal distention, nausea, poor per orally intake, small bowel movements PMFSH Past Medical History Medical History Anxiety Atrial fibrillation Carotid stenosis Most recent carotid Doppler July 2022: Less than 50% stenosis right internal carotid artery and greater than 70% stenosis of the left internal carotid artery. Coronary artery disease End-stage renal disease on hemodialysis Essential hypertension History of GI bleed Multiple and requiring transfusion. No longer on chronic anticoagulation due to bleeds History of small bowel obstruction Hypothyroidism Kidney stones Peripheral artery disease Moderate to severe bilateral lower extremity peripheral vascular disease noted on ABIs July 2022 Surgical History Surgical History History of abdominal aortic aneurysm repair (1997) Open repair History of cardiac radiofrequency ablation History of four vessel coronary artery bypass graft (1997) History of laparoscopic cholecystectomy (2000) History of vascular surgery History of ventral hernia repair With mesh Retained ureteral stent Chronic S/P dialysis catheter
[2024-04-09] MEDS: cefTRIAXone 2 GM/NS 100 ML 2 GM/100 ML BAG IVPB (22:07)
[2024-04-09 22:13] VITALS: BP 190/52; PULSE 52; RESP 15; O2SAT 98
[2024-04-10] VITALS (11 sets, daily range): BP systolic 152–190; BP diastolic 45–64; PULSE 46–60; RESP 14–20; TEMP 35.9–36.8; O2SAT 96–100; BMI 23.8
--- NOTE | 2024-04-10 00:19 | ADMGEN ---
This patient, Mary Ramirez, was admitted to [facility] Surg Room 322-02. Patient/family oriented to hospital policies and general routines including ID bracelet, bed and alarms, visiting hours, pain management, procedures, bathroom and other care routines, personal items, smoking policy, room service/diet, and visiting hours. Information on how to activate the Rapid Response Team has been discussed. Patient/Family are encouraged to report perceived risks to care and to ask questions if they do not understand what they are told or what they should do.
[2024-04-10] MEDS: ONDANSETRON INJ 4 MG/2 ML VIAL IV PUSH ×2 (00:51→08:14)
[2024-04-10] MEDS: hydrALAZINE HCL 20 MG/ML VIAL 10 MG IV PUSH ×2 (02:48→04:37)
[2024-04-10] MEDS: FUROSEMIDE INJ 40 MG/4 ML VIAL IV PUSH (04:37)
--- NOTE | 2024-04-10 09:21 | PM.IMPN ---
Progress Note: A&P Assessment and Plan (1) Small bowel obstruction: Code(s): K56.609 - Unspecified intestinal obstruction, unspecified as to partial versus complete obstruction Status: Acute (2) End-stage renal disease on hemodialysis: Code(s): N18.6 - End stage renal disease; Z99.2 - Dependence on renal dialysis Status: Chronic (3) Anxiety: Code(s): F41.9 - Anxiety disorder, unspecified Status: Acute (4) Atrial fibrillation: Code(s): I48.91 - Unspecified atrial fibrillation Status: Chronic (5) End stage renal disease: Code(s): N18.6 - End stage renal disease Status: Chronic (6) Peripheral artery disease: Code(s): I73.9 - Peripheral vascular disease, unspecified Status: Acute (7) Essential hypertension: Code(s): I10 - Essential (primary) hypertension Status: Chronic Plan This is a 68-year-old female who presents to the ED for abdominal pain nausea vomiting possible bowel obstruction. Patient has history of bowel obstruction in the past. Last bowel movement was on Sunday. He was on Bactrim for UTI bowel movement initially. She has end-stage renal disease and on hemodialysis Sunday and Fridays on 80 evaluation were stable. Laboratory evaluation showed a hemoglobin of 10.9 WBC of 9.5 creatinine of 6.2 potassium of 3.9. Urinalysis with urine WBC 20 1-50 RBC 3-5 lipase was normal at 158. LFTs were within normal limits. CT abdomen pelvis was performed which showed bilateral atrophic kidneys with right double-J stent mild right hydronephrotic changes to rule out a calcification in the right hemidiaphragmatic area. Small bowel dilatation suggestive of ileus versus intestinal obstruction. Dilatation of the distal aorta measuring 2.7 cm by femoral stent. General surgery has been consulted. She already started having bowel movement. Will start clear liquid diet and advanced as tolerated await General surgery evaluation nephrology will be consulted for inpatient hemodialysis. UTI will treat with antibiotics ceftriaxone follow urine culture Hypertension resume home medication disorder home medication End-stage renal disease on hemodialysis Mondays and Fridays DVT prophylaxis heparin subQ Code status full Subjective Date/time seen: 04/10/24 09:21 Interval history: History reviewed. Reports have bowel movement earlier today. Abdominal distention has improved. No nausea or vomiting. Review of Systems Review of Systems: All systems reviewed & are unremarkable except as noted in HPI and below Exam Narrative: GENERAL: Well-appearing, in no acute distress, pleasant cooperative HEAD: Normocephalic, atraumatic. EYES: PERRLA and EOMI. ENT: Mucous membranes moist. NECK: Supple. CHEST: Clear to auscultation. No respiratory distress. HEART: Regular rate and rhythm ABDOMEN: Soft, nontender mildly distended hypoactive bowel sounds EXTREMITIES: Normal range of motion. SKIN: Warm, dry, no rash. NEURO: Alert and oriented x3. PSYCH: Normal mood and affect. Objective Data Vital Signs Vital Signs: Vital Signs - 24 hr 04/09/24 17:13 04/09/24 22:13 04/10/24 00:42 Temperature 97.5 F L Pulse Rate 54 L 52 L Respiratory Rate 15 15 Blood Pressure 134/55 L 190/52 H Pulse Oximetry 98 98 Oxygen Delivery Room Air Room Air 04/10/24 00:45 04/10/24 03:35 04/10/24 05:50 Temperature 96.7 F L 97.5 F L Pulse Rate 46 L 52 L Respiratory Rate 20 18 Blood Pressure 188/64 H 190/62 H 164/60 H Pulse Oximetry 100 98 Oxygen Delivery Intake/Output Intake/Output: Intake & Output 04/07/24 04/08/24 04/09/24 04/10/24 23:59 23:59 23:59 23:59 Intake Total 100 Balance 100 Meds/Results Medications: Active Medications Generic Name Dose Route Start Last Admin Trade Name Freq PRN Reason Stop Dose Admin Ondansetron HCl 4 mg 04/10/24 00:40 04/10/24 08:14 Ondansetron Inj 4 Mg/2 Ml Vial IV PUSH 4 mg Q6H PRN Admi
[2024-04-10] MEDS: ASPIRIN 325 MG TABLET PO (09:54)
[2024-04-10] MEDS: hydrALAZINE HCL 25 MG TABLET PO ×2 (09:54→16:54)
[2024-04-10] MEDS: LOSARTAN POTASSIUM 25 MG TABLET PO (09:54)
[2024-04-10] MEDS: NIFEdipine 30 MG TAB.ER.24 60 MG PO (09:54)
[2024-04-10] MEDS: CHOLECALCIFEROL 1,000 UNITS TABLET 1000 UNITS PO (09:55)
[2024-04-10] MEDS: HEPARIN SODIUM 5,000 UNITS/ML VIAL 5000 UNITS SUB-Q ×2 (09:55→20:18)
--- NOTE | 2024-04-10 11:00 | P.CONGS_ITS ---
Patient with extensive abdominal surgery to include prior cholecystectomy and bowel resection. She also had ventral hernia repair with mesh. Last admitted to the hospital May 2023 for partial small-bowel obstruction which resolved without surgical management. She apparently had multiple admissions in the past for the same condition. She apparently has enlarging lung nodule which could be metastatic disease from a abdominal mass. Patient tells me that she has been under the care of an oncologist at [facility] and a PET scan was done and the scanned shows these lesions to be consistent with a malignant process. She was supposed to get a CT-guided lung biopsy at [facility] today but was admitted to the hospital because of her recent history of having several days of nausea vomiting and abdominal distention abdominal pain. Since admission to the hospital she has had no further nausea or vomiting. She had a bowel movement last evening. She does not feel that her abdomen is particularly distended this point. She feels she is getting back to her baseline. Her abdominal exam is benign now. She most likely has had a partial small-bowel obstruction again due to her abdominal adhesions which has resolved without need for further surgical management or evaluation. She can go ahead and start on clear liquids and advanced diet as tolerated. She will need to follow-up with her oncologist at [facility] to get her lung biopsy rescheduled. Assessment and Plan Assessment and plan (1) Small bowel obstruction: Code(s): K56.609 - Unspecified intestinal obstruction, unspecified as to partial versus complete obstruction <AGUSTINA Muhammad - Last Filed: 04/10/24 12:55> Status: Acute <AGUSTINA Muhammad - Last Filed: 04/10/24 12:55> Assessment and Plan: CT scan shows dilated small bowel without definite transition point, suspicious for partial small bowel obstruction versus ileus. She has had multiple previous small bowel obstructions and previous surgeries that could cause intraabdominal adhesions. The patient initially had vomiting and diarrhea 5-6 days ago, which has resolved. Clinically she was improving at home, but she was instructed to come in for evaluation by Oncology. Her bowels are moving and her abdominal exam is benign. She has not evidence of a high-grade small bowel obstruction. We will start a clear liquid diet now and start advancing as tolerated. If she develops obstructive symptoms again, then we could consider a small bowel follow through to further evaluate. No indication for surgical intervention at this time. That being said, the patient would be a high risk surgical candidate due to her multiple co-morbidities. Will continue to follow along with serial abdominal exams. <AGUSTINA Muhammad - Last Filed: 04/10/24 12:55> (2) Mesenteric mass: Code(s): K63.89 - Other specified diseases of intestine <AGUSTINA Muhammad - Last Filed: 04/10/24 12:55> Status: Chronic <AGUSTINA Muhammad - Last Filed: 04/10/24 12:55> Assessment and Plan: Patient with a mesenteric mass measuring 1.2 cm on her previous CT scan of the abdomen and pelvis from May 2023. The patient has known about the mass for almost 2 years and is currently following an Oncologist at [facility]. She has also had a growing lung nodule that Oncology was planning to biopsy. Follow-up with Oncology after discharge. <AGUSTINA Muhammad - Last Filed: 04/10/24 12:55> (3) Lung nodule: Code(s): R91.1 - Solitary pulmonary nodule <AGUSTINA Muhammad - Last Filed: 04/10/24 12:55> Status: Chronic <AGUSTINA Muhammad - Last Filed: 04/10/24 12:55> Assessment and Plan:
--- NOTE | 2024-04-10 11:00 | PM.CNGS ---
Assessment and Plan Assessment and plan (1) Small bowel obstruction: Code(s): K56.609 - Unspecified intestinal obstruction, unspecified as to partial versus complete obstruction <Edith GarciaAGUSTINA gaming - Last Filed: 04/10/24 12:55> Status: Acute <Edith ZunigaAGUSTINA - Last Filed: 04/10/24 12:55> Assessment and Plan: CT scan shows dilated small bowel without definite transition point, suspicious for partial small bowel obstruction versus ileus. She has had multiple previous small bowel obstructions and previous surgeries that could cause intraabdominal adhesions. The patient initially had vomiting and diarrhea 5-6 days ago, which has resolved. Clinically she was improving at home, but she was instructed to come in for evaluation by Oncology. Her bowels are moving and her abdominal exam is benign. She has not evidence of a high-grade small bowel obstruction. We will start a clear liquid diet now and start advancing as tolerated. If she develops obstructive symptoms again, then we could consider a small bowel follow through to further evaluate. No indication for surgical intervention at this time. That being said, the patient would be a high risk surgical candidate due to her multiple co-morbidities. Will continue to follow along with serial abdominal exams. <Edith UgarteAGUSTINA harvey - Last Filed: 04/10/24 12:55> (2) Mesenteric mass: Code(s): K63.89 - Other specified diseases of intestine <Edith UgarteAGUSTINA harvey - Last Filed: 04/10/24 12:55> Status: Chronic <Edith UgarteAGUSTINA harvey - Last Filed: 04/10/24 12:55> Assessment and Plan: Patient with a mesenteric mass measuring 1.[address] cm [address] previous [address] scan of the abdomen and pelvis from May 2023. The patient has known about the mass for almost 2 years and is currently following an Oncologist at [facility]. She has also had a growing lung nodule that Oncology was planning to biopsy. Follow-up with Oncology after discharge. <Edith UgarteAGUSTINA harvey - Last Filed: 04/10/24 12:55> (3) Lung nodule: Code(s): R91.1 - Solitary pulmonary nodule <Edith Angeles ToritoAGUSTINA harvey - Last Filed: 04/10/24 12:55> Status: Chronic <Edith Bridgette Zuniga TUBE WASHER - Last Filed: 04/10/24 12:55> Assessment and Plan: Lung biopsy will be rescheduled by Oncology after discharge. <VIPUL MuhammadP - Last Filed: 04/10/24 12:55> (4) End-stage renal disease on hemodialysis: Code(s): N18.6 - End stage renal disease; Z99.2 - Dependence on renal dialysis <Edith Zuniga, TUBE WASHER - Last Filed: 04/10/24 12:55> Status: Chronic <Edith BShivani Ugartemutamberly, TUBE WASHER - Last Filed: 04/10/24 12:55> (5) Peripheral artery disease: Code(s): I73.9 - Peripheral vascular disease, unspecified <Edith Bridgette Zuniga, TUBE WASHER - Last Filed: 04/10/24 12:55> Status: Acute <Edith Bridgette Zuniga TUBE WASHER - Last Filed: 04/10/24 12:55> (6) History of abdominal aortic aneurysm repair: Onset Date: 1997 <Edith Zuniga TUBE WASHER - Last Filed: 04/10/24 12:55> Code(s): Z98.890 - Other specified postprocedural states <Edith Zuniga, TUBE WASHER - Last Filed: 04/10/24 12:55> Status: Resolved <Edith BShivani Ugartemutamberly, TUBE WASHER - Last Filed: 04/10/24 12:55> (7) Atrial fibrillation: Code(s): I48.91 - Unspecified atrial fibrillation <Edith Bridgette Ugartemutamberly, TUBE WASHER - Last Filed: 04/10/24 12:55> Status: Chronic <Edith BShivani Ugartemutamberly, TUBE WASHER - Last Filed: 04/10/24 12:55> Assessment and Plan: I have discussed the patient's case and plan of care with Dr. Sal. Thank you for allowing us to see the patient in consultation and we will continue to follow along with you. <Edith Zuniga, TUBE WASHER - Last Filed: 04/10/24 12:55> History of Present Illness Consult details Consult date: 04/10/24 <AGUSTINA Muhammad - Last Filed: 04/10/24 12:55> 04/10/24 <Abdifatah Sal MD - Last Filed: 04/10/24 12:27> Reason for consult: other (Small-bowel obst
--- NOTE | 2024-04-10 14:20 | PM.CNNEP ---
Assessment and Plan Assessment and plan (1) End stage renal disease: Code(s): N18.6 - End stage renal disease Status: Chronic Assessment and Plan: plan HD tomorrow normally does HD on Mondays and Fridays - will continue this schedule while hospitalized follow electrolytes, volume status, and clearance (2) Small bowel obstruction: Code(s): K56.609 - Unspecified intestinal obstruction, unspecified as to partial versus complete obstruction Status: Acute Assessment and Plan: CT scan shows dilated small bowel suspicious for partial small bowel obstruction versus ileus she also had vomiting and diarrhea 5-6 days ago (which has resolved) had been having bowel movements since admission tolerating clear liquid diet General Surgery is following continue supportive therapy (3) Essential hypertension: Code(s): I10 - Essential (primary) hypertension Status: Chronic Assessment and Plan: noted fluctuations since admission suspect pain issues playing a role along with inability to take po BP medications PRN IV medications (i.e. hydralazine or labetalol) for now until she can resume home oral BP medications follow trend of hemodynamics (4) Anemia: Code(s): D64.9 - Anemia, unspecified Status: Chronic Assessment and Plan: due to ESRD JESSY with dialysis follow trend of H/H (5) UTI (urinary tract infection): Code(s): N39.0 - Urinary tract infection, site not specified Status: Suspected Assessment and Plan: admission UA suggestive follow-up on urine culture on antibiotics I will continue to follow the patient with you while she remains hospitalized and make further recommendations as deemed necessary. Thank you for allowing me to participate in the care of this patient. History of Present Illness Reason for Consult Consult date: 04/10/24 Reason for consult: end stage renal disease Chief Complaint Chief complaint: UTI/Possible SBO vs Ileus History of Present Illness Narrative: The patient is a 68-year-old female with a past medical history as outlined below who presented to [facility] Emergency Room due to complaints of abdominal pain. Her abdominal pain has been present for last few days has been associated with some nausea and vomiting. She has a long extensive history of bowel obstructions in the past and due to these symptoms, she had concerns that there was another possible bowel obstruction present and came to the ER for further assessment. Workup and evaluation emergency room demonstrated the patient to be hemodynamically stable but in mild distress secondary to abdominal pain. Routine blood test demonstrated labs consistent with her known history of end-stage renal disease with otherwise normal CBC. Her urinalysis was somewhat suggestive of urinary tract infection and her liver function tests were all within normal limits. Given her extensive history of abdominal surgeries and previous bowel obstructions, she underwent a CT scan of the abdomen pelvis which demonstrated bilateral atrophic kidneys with a right double-J stent with mild right hydronephrotic changes along with small bowel dilation suggestive of ileus versus intestinal obstruction. General surgery was consulted given the CT scan findings and after appropriate cultures were obtained, she was started on IV antibiotics for her potential urinary tract infection. She was subsequently admitted to the hospital for further evaluation and therapy. Since her admission, she has been seen by General surgery and her overall abdominal symptoms seem to be improving. She is tolerating a clear liquid diet and she has already had a bowel movement. There are currently no plans for any type of surgical intervention at this time given her improvement in symptoms. Renal consultation was requested due to her end-stage renal disease. The patient normally dialyze
[2024-04-10] MEDS: FUROSEMIDE 40 MG TABLET PO (16:54)
[2024-04-10] MEDS: carvediloL 6.25 MG TABLET PO (16:55)
[2024-04-10] MEDS: GABAPENTIN 300 MG CAPSULE PO (20:15)
[2024-04-11] VITALS (26 sets, daily range): BP systolic 142–215; BP diastolic 49–98; PULSE 44–80; RESP 14–18; TEMP 36.1–37; O2SAT 97–100
[2024-04-11 06:47] LABS: Basophils Absolute Auto 0.1 K/mm3 (0.0-0.1); Basophils Percent Auto 1.4 % (0.2-1.2); Eosinophils Absolute Auto 0.3 K/mm3 (0-0.3); Eosinophils Percent Auto 4.4 % (0-4.4); Hematocrit 33.8 % (37.0-47.0); Hemoglobin 10.6 g/dL (12.0-15.0); Immature Granulocyte Absolute 0.06 K/mm3 (0.00-0.031); Immature Granulocyte Percent A 0.9 % (0-0.5); Lymphocytes Percent Auto 18.4 % (18.3-44.2); Mean Corpuscular HGB Conc 31.4 g/dl (32-36); Mean Corpuscular Hemoglobin 29.3 pg (26-34); Mean Corpuscular Volume 93.4 fl (80-100); Mean Platelet Volume 11.4 fl (7.4-10.4); Monocytes Absolute Auto 0.7 K/mm3 (0.1-0.6); Monocytes Percent Auto 10.7 % (2.6-8.5); Neutrophils Absolute Auto 4.2 K/mm3 (1.3-6.7); Neutrophils Percent Auto 64.2 % (45.5-73.1); Platelet Count Result 232 k/mm3 (150-375); Red Blood Count 3.62 M/mm3 (4.2-5.4); Red Cell Distribution Width 13.8 % (11.5-14.5); White Blood Count 6.5 K/mm3 (4.5-10.0)
[2024-04-11 07:18] LABS: Alanine Aminotransferase 9 U/L (6-35); Alkaline Phosphatase 34 U/L (38-126); Anion Gap 20 mmol/L (4-12); Aspartate Amino Transferase 27 U/L (14-36); Bilirubin,Total 0.6 mg/dL (0.2-1.3); Blood Urea Nitrogen 59 mg/dL (7-17); Calcium 10.1 mg/dL (8.4-10.2); Carbon Dioxide 22 mmol/L (22-30); Chloride 94 mmol/L (98-107); Estimated CRCL calculation 7 ml/min; Estimated Glomerular Filt Rate 8; Glucose 99 mg/dL (65-110); Magnesium 2.1 mg/dL (1.6-2.3); Potassium 3.9 mmol/L (3.4-5.0); Sodium 136 mmol/L (137-145)
[2024-04-11 07:52] LABS: Hepatitis B Surface Antigen Negative (Negative)
--- NOTE | 2024-04-11 08:26 | PC.NURSE ---
RN spoke with dredge or barge shore hand about holding her meds and she suggested holding meds and only give hydralazine.
[2024-04-11 08:38] LABS: Hepatitis B Surface Anti Res Positive
--- NOTE | 2024-04-11 08:59 | PM.IMPN ---
Progress Note: A&P Assessment and Plan (1) Small bowel obstruction: Code(s): K56.609 - Unspecified intestinal obstruction, unspecified as to partial versus complete obstruction Status: Acute (2) End-stage renal disease on hemodialysis: Code(s): N18.6 - End stage renal disease; Z99.2 - Dependence on renal dialysis Status: Chronic (3) Anxiety: Code(s): F41.9 - Anxiety disorder, unspecified Status: Acute (4) Atrial fibrillation: Code(s): I48.91 - Unspecified atrial fibrillation Status: Chronic (5) End stage renal disease: Code(s): N18.6 - End stage renal disease Status: Chronic (6) Peripheral artery disease: Code(s): I73.9 - Peripheral vascular disease, unspecified Status: Acute (7) Essential hypertension: Code(s): I10 - Essential (primary) hypertension Status: Chronic Plan This is a 68-year-old female who presents to the ED for abdominal pain nausea vomiting possible bowel obstruction. Patient has history of bowel obstruction in the past. Last bowel movement was on Sunday. He was on Bactrim for UTI bowel movement initially. She has end-stage renal disease and on hemodialysis Sunday and Fridays on 80 evaluation were stable. Laboratory evaluation showed a hemoglobin of 10.9 WBC of 9.5 creatinine of 6.2 potassium of 3.9. Urinalysis with urine WBC 20 1-50 RBC 3-5 lipase was normal at 158. LFTs were within normal limits. CT abdomen pelvis was performed which showed bilateral atrophic kidneys with right double-J stent mild right hydronephrotic changes to rule out a calcification in the right hemidiaphragmatic area. Small bowel dilatation suggestive of ileus versus intestinal obstruction. Dilatation of the distal aorta measuring 2.7 cm by femoral stent. General surgery has been consulted. She already started having bowel movement. Will start clear liquid diet and advanced as tolerated await General surgery evaluation nephrology will be consulted for inpatient hemodialysis. UTI will treat with antibiotics ceftriaxone follow urine culture Hypertension resume home medication disorder home medication End-stage renal disease on hemodialysis Mondays and Fridays small-bowel obstruction Patient is on clear diet now, will advance diet per general surgeon evaluation pain is tolerable patient denies nausea vomiting, abdomen pain, patient had a bowel movement a.m. today UTI Patient is on ceftriaxone urine culture has no growth Patient is asymptomatic Discontinue ceftriaxone end-stage renal disease and on hemodialysis Sunday and Fridays consult floor broker for dialysis BUN creatinine close to baseline No sign of fluid overload patient is on hemodialysis today, patient felt comfortable on dialysis Chronic anemia Hemoglobin stable Likely secondary to chronic renal failure and chronic medical issues management per floor broker patient is on epoetin essential hypertension Continue losartan 25 mg daily p.o., nifedipine 6 mg daily p.o. DVT prophylaxis heparin subQ Code status full Subjective Date/time seen: 04/11/24 08:59 Interval history: I saw examined the patient but patient was on hemodialysis. Patient fell combo on hemodialysis, denies headache, lightheadedness, shortness cough asthma chest pain. patient tolerate liquid diet, denies nausea vomiting abdomen pain Exam Narrative: GENERAL: Pleasant, in no acute distress. Well-nourished. - EYES: EOMI. Anicteric. - HENT: Moist mucous membranes. - LUNGS: Clear to auscultation bilaterally, no wheezing, rhonchi, or rales. - CARDIOVASCULAR: Regular rate and rhythm. No murmur. No JVD. - ABDOMEN: Soft, mild abdominal tender and non-distended. No palpable masses. - EXTREMITIES: No edema. Peripheral pulses 2+. Non-tender. - NEUROLOGIC: No focal neurological deficits. CN II-XII grossly intact. - PSYCHIATRIC: Awake, Alert and oriented x 3. Appropriate mood and affect.
[2024-04-11] MEDS: hydrALAZINE HCL 25 MG TABLET PO ×2 (09:35→16:57)
--- NOTE | 2024-04-11 09:39 | PC.NURSE ---
RN took pt to dialysis
--- NOTE | 2024-04-11 10:40 | PC.NURSE ---
Primary RN, Mars Chavarria called to bring patient's remaining blood pressure medications due to SBP in the 200's.
--- NOTE | 2024-04-11 10:55 | PM.PNNEP ---
Progress Note: A&P Assessment and Plan (1) End stage renal disease: Code(s): N18.6 - End stage renal disease Status: Chronic Assessment and Plan: HD today normally does HD on Mondays and Fridays - will continue this schedule while hospitalized follow electrolytes, volume status, and clearance (2) Small bowel obstruction: Code(s): K56.609 - Unspecified intestinal obstruction, unspecified as to partial versus complete obstruction Status: Acute Assessment and Plan: CT scan shows dilated small bowel suspicious for partial small bowel obstruction versus ileus she also had vomiting and diarrhea 5-6 days ago prior to admission (which has resolved) had been having bowel movements since admission tolerating clear liquid diet with diet being advanced General Surgery is following continue supportive therapy (3) Essential hypertension: Code(s): I10 - Essential (primary) hypertension Status: Chronic Assessment and Plan: noted fluctuations since admission suspect pain issues playing a role along with inability to take po BP medications on admission restarted on oral BP mediations follow trend of hemodynamics (4) Anemia: Code(s): D64.9 - Anemia, unspecified Status: Chronic Assessment and Plan: due to ESRD JESSY with dialysis follow trend of H/H (5) UTI (urinary tract infection): Code(s): N39.0 - Urinary tract infection, site not specified Status: Suspected Assessment and Plan: admission UA suggestive follow-up on urine culture - negative to date on antibiotics Will continue to follow.. Subjective Date/time seen: 04/11/24 10:55 Interval history: Follow-up for end stage renal disease on hemodialysis. Tolerating dialysis treatment at the time of my visit (seen on HD at 10:45AM); BP quite elevated so floor nurse to administer AM blood pressure medications; tolerated clear liquid diet yesterday and noted plans to advance diet as tolerated; still with some abdominal pain but has a chronic component; no other issues/events overnight or earlier this morning. Exam Narrative: General: thin WD/WN female in NAD Heart: normal S1 and S2; no rub Lungs: clear to auscultation Abdomen: soft, mild TTP, nondistended, positive bowel sounds Extremities: no cyanosis or clubbing; no edema Skin: warm and dry Objective Data Vital Signs Vital Signs: Vital Signs Temp Pulse Resp BP Pulse Ox O2 Del Method 04/11/24 10:45 49 L 200/77 H 04/11/24 10:30 50 L 205/62 H 04/11/24 09:55 53 L 215/96 H 04/11/24 09:48 97.9 F 55 L 18 207/83 H 97 04/11/24 05:52 97.4 F L 53 L 14 174/49 H 97 04/11/24 04:00 76 04/11/24 00:00 52 L 04/10/24 20:00 49 L 04/10/24 20:00 Room Air 04/10/24 20:59 98.3 F 50 L 16 152/45 H 97 Intake/Output Intake/Output: Intake & Output 04/08/24 04/09/24 04/10/24 04/11/24 23:59 23:59 23:59 23:59 Intake Total 100 860 750 Output Total 1 496 Balance 100 859 254 Meds/Results Medications: Active Medications Generic Name Dose Route Start Last Admin Trade Name Chavoq PRN Reason Stop Dose Admin Aspirin 325 mg 04/10/24 09:35 04/11/24 16:58 Aspirin 325 Mg Tablet PO 325 mg DAILY ANDRÉS Administration Carvedilol 6.25 mg 04/10/24 09:40 04/11/24 16:57 Carvedilol 6.25 Mg Tablet PO 6.25 mg BIDWM ANDRÉS Administration Clonazepam 0.5 mg 04/10/24 09:25 Clonazepam (*Crx) 0.5 Mg Tablet PO BID PRN Anxiety Docusate Sodium 100 mg 04/10/24 09:25 Docusate Sodium 100 Mg Capsule PO DAILY PRN Constipation Epoetin Erasmo-epbx 4,000 units 04/11/24 20:01 04/11/24 10:37 Epoetin Erasmo-Epbx 4,000 Units/Ml Vial IV PUSH 04/11/24 20:02 Not Given ONCE ONE Furosemide 40 mg 04/10/24 17:00 04/11/24 17:02 Furosemide 40 Mg Tablet PO 40 mg BID ANDRÉS Administration Gabapentin 300
--- NOTE | 2024-04-11 10:55 | P.PNNP_ITS ---
Progress Note: A&P Assessment and Plan (1) End stage renal disease: Code(s): N18.6 - End stage renal disease Status: Chronic Assessment and Plan: * HD today * normally does HD on Mondays and Fridays - will continue this schedule while hospitalized * follow electrolytes, volume status, and clearance (2) Small bowel obstruction: Code(s): K56.609 - Unspecified intestinal obstruction, unspecified as to partial versus complete obstruction Status: Acute Assessment and Plan: * CT scan shows dilated small bowel suspicious for partial small bowel obstruction versus ileus * she also had vomiting and diarrhea 5-6 days ago prior to admission (which has resolved) * had been having bowel movements since admission * tolerating clear liquid diet with diet being advanced * General Surgery is following * continue supportive therapy (3) Essential hypertension: Code(s): I10 - Essential (primary) hypertension Status: Chronic Assessment and Plan: * noted fluctuations since admission * suspect pain issues playing a role along with inability to take po BP medications on admission * restarted on oral BP mediations * follow trend of hemodynamics (4) Anemia: Code(s): D64.9 - Anemia, unspecified Status: Chronic Assessment and Plan: * due to ESRD * JESSY with dialysis * follow trend of H/H (5) UTI (urinary tract infection): Code(s): N39.0 - Urinary tract infection, site not specified Status: Suspected Assessment and Plan: * admission UA suggestive * follow-up on urine culture - negative to date * on antibiotics Will continue to follow.. Subjective Date/time seen: 04/11/24 10:55 Interval history: Follow-up for end stage renal disease on hemodialysis. Tolerating dialysis treatment at the time of my visit (seen on HD at 10:45AM); BP quite elevated so floor nurse to administer AM blood pressure medications; tolerated clear liquid diet yesterday and noted plans to advance diet as tolerated; still with some abdominal pain but has a chronic component; no other issues/events overnight or earlier this morning. Exam Narrative: General: thin WD/WN female in NAD Heart: normal S1 and S2; no rub Lungs: clear to auscultation Abdomen: soft, mild TTP, nondistended, positive bowel sounds Extremities: no cyanosis or clubbing; no edema Skin: warm and dry Objective Data Vital Signs Vital Signs: Vital Signs Temp Pulse Resp BP Pulse Ox O2 Del Method 04/11/24 10:45 49 L 200/77 H 04/11/24 10:30 50 L 205/62 H 04/11/24 09:55 53 L 215/96 H 04/11/24 09:48 97.9 F 55 L 18 207/83 H 97 04/11/24 05:52 97.4 F L 53 L 14 174/49 H 97 04/11/24 04:00 76 04/11/24 00:00 52 L 04/10/24 20:00 49 L 04/10/24 20:00 Room Air 04/10/24 20:59 98.3 F 50 L 16 152/45 H 97 Intake/Output Intake/Output: Intake & Output 04/08/24 04/09/24 04/10/24 04/11/24 23:59 23:59 23:59 23:59 Intake Total 100 860 750 Output Total 1 496 Balance 100 859 254 Meds/Results Medications: Active Medications Generic Name Dose Route Start Last Admin
[2024-04-11] MEDS: LOSARTAN POTASSIUM 25 MG TABLET PO (11:15)
[2024-04-11] MEDS: NIFEdipine 30 MG TAB.ER.24 60 MG PO (11:15)
[2024-04-11] MEDS: carvediloL 6.25 MG TABLET PO ×2 (11:16→16:57)
[2024-04-11] MEDS: HEPARIN SODIUM 1,000 UNITS/ML VIAL 5000 UNITS (13:14)
[2024-04-11] MEDS: HEPARIN SODIUM 1,000 UNITS/ML VIAL 2000 UNITS (13:15)
--- NOTE | 2024-04-11 13:20 | WPDPN ---
Progress Note: A&P Assessment and Plan (1) Small bowel obstruction: Code(s): K56.609 - Unspecified intestinal obstruction, unspecified as to partial versus complete obstruction Status: Acute Assessment and Plan: Patient is improving after her partial small-bowel obstruction. Apparently this has been more chronic intermittent issue with the patient since had multiple admissions in the past for partial small-bowel obstructions to her many prior abdominal surgeries. She has always been able to resolve these with non operative management. Her abdomen is benign. She has tolerated liquids and advanced to solid food today. From a surgical standpoint as on she is able to tolerate solid food and she be discharged when she is medically optimized. No need to follow up with general surgery after discharge. Subjective Date/time seen: 04/11/24 13:20 Interval history: Patient without acute changes today surgically. She was seen up in the dialysis unit and she was tolerating hemodialysis well. Had tolerated liquids yesterday had but had not had any solid food yet today and is planning on having solid food after her dialysis treatment. No nausea or vomiting. She is passing flatus but has not had a bowel movement in 1/2 days. Really denies any significant change in her low level chronic abdominal pain. Exam GI: Other: Abdomen is soft and nondistended. Minimal diffuse tenderness which is pretty much the patient's baseline. No acute surgical abdomen. Objective Data Vital Signs Vital Signs: Vital Signs - 24 hr 04/10/24 14:00 04/10/24 16:55 04/10/24 16:00 Temperature 36.1 C L Pulse Rate 51 L 60 54 L Respiratory Rate 14 Blood Pressure 187/53 H Pulse Oximetry 96 Oxygen Delivery 04/10/24 20:59 04/10/24 20:00 04/10/24 20:00 Temperature 36.8 C Pulse Rate 50 L 49 L Respiratory Rate 16 Blood Pressure 152/45 H Pulse Oximetry 97 Oxygen Delivery Room Air 04/11/24 00:00 04/11/24 04:00 04/11/24 05:52 Temperature 36.3 C L Pulse Rate 52 L 76 53 L Respiratory Rate 14 Blood Pressure 174/49 H Pulse Oximetry 97 Oxygen Delivery 04/11/24 09:48 04/11/24 09:55 04/11/24 10:30 Temperature 36.6 C Pulse Rate 55 L 53 L 50 L Respiratory Rate 18 Blood Pressure 207/83 H 215/96 H 205/62 H Pulse Oximetry 97 Oxygen Delivery 04/11/24 10:45 04/11/24 11:16 04/11/24 11:00 Temperature Pulse Rate 49 L 50 L 48 L Respiratory Rate Blood Pressure 200/77 H 205/76 H Pulse Oximetry Oxygen Delivery 04/11/24 12:00 04/11/24 12:15 04/11/24 10:00 Temperature Pulse Rate 49 L 52 L 56 L Respiratory Rate Blood Pressure 173/76 H 179/66 H 199/87 H Pulse Oximetry Oxygen Delivery 04/11/24 10:15 04/11/24 11:15 04/11/24 11:30 Temperature Pulse Rate 54 L 50 L 51 L Respiratory Rate Blood Pressure 202/98 H 201/73 H 190/72 H Pulse Oximetry Oxygen Delivery 04/11/24 11:45 Temperature Pulse Rate 50 L Respiratory Rate Blood Pressure 204/74 H Pulse Oximetry Oxygen Delivery Intake/Output Intake/Output: Intake & Output 04/08/24 04/09/24 04/10/24 04/11/24 23:59 23:59 23:59 23:59 Intake Total 100 860 750 Output Total 1 Balance 100 859 750 Meds/Results Medications: Active Medications Generic Name Dose Route Start Last Admin Trade Name Freq PRN Reason Stop Dose Admin Aspirin 325 mg 04/10/24 09:35 04/10/24 09:54 Aspirin 325 Mg Tablet PO 325 mg DAILY ANDRÉS Administration Carvedilol 6.25 mg 04/10/24 09:40 04/11/24 11:16 Carvedilol 6.25 Mg Tablet PO 6.25 mg BIDWM ANDRÉS Administration Clonazepam 0.5 mg 04/10/24 09:25 Clonazepam (*Crx) 0.5 Mg Tablet PO BID PRN Anxiety Docusate Sodium 100 mg 04/10/24 09:25 Docusate Sodium 100 Mg Capsule PO DAILY PRN Constipation Epoetin Erasmo-epbx 4,000 units 04/11/24 20:01 04/11/24 10:37 Epoetin Erasmo-Epbx 4,000 Units/Ml Vi
[2024-04-11] MEDS: CHOLECALCIFEROL 1,000 UNITS TABLET 1000 UNITS PO (16:57)
[2024-04-11] MEDS: ASPIRIN 325 MG TABLET PO (16:58)
[2024-04-11] MEDS: FUROSEMIDE 40 MG TABLET PO (17:02)
--- NOTE | 2024-04-11 18:05 | PC.NURSE ---
RN called provider regarding pt Klonopin and order was put in place at night
[2024-04-11] MEDS: clonazePAM (*CRX) 0.5 MG TABLET PO (20:21)
[2024-04-11] MEDS: GABAPENTIN 300 MG CAPSULE PO (20:21)
[2024-04-11] MEDS: HEPARIN SODIUM 5,000 UNITS/ML VIAL 5000 UNITS SUB-Q (20:22)
[2024-04-12] VITALS (14 sets, daily range): BP systolic 142–198; BP diastolic 56–68; PULSE 49–70; RESP 12–18; TEMP 36.6–36.8; O2SAT 96–99
[2024-04-12 06:54] LABS: MRSA (PCR) NOT DETECTED (NOT DETECTE)
--- NOTE | 2024-04-12 08:23 | PM.IMPN ---
Progress Note: A&P Assessment and Plan (1) Small bowel obstruction: Code(s): K56.609 - Unspecified intestinal obstruction, unspecified as to partial versus complete obstruction Status: Acute (2) End-stage renal disease on hemodialysis: Code(s): N18.6 - End stage renal disease; Z99.2 - Dependence on renal dialysis Status: Chronic (3) Anxiety: Code(s): F41.9 - Anxiety disorder, unspecified Status: Acute (4) Atrial fibrillation: Code(s): I48.91 - Unspecified atrial fibrillation Status: Chronic (5) End stage renal disease: Code(s): N18.6 - End stage renal disease Status: Chronic (6) Peripheral artery disease: Code(s): I73.9 - Peripheral vascular disease, unspecified Status: Acute (7) Essential hypertension: Code(s): I10 - Essential (primary) hypertension Status: Chronic Plan This is a 68-year-old female who presents to the ED for abdominal pain nausea vomiting possible bowel obstruction. Patient has history of bowel obstruction in the past. Last bowel movement was on Sunday. He was on Bactrim for UTI bowel movement initially. She has end-stage renal disease and on hemodialysis Sunday and Fridays on 80 evaluation were stable. Laboratory evaluation showed a hemoglobin of 10.9 WBC of 9.5 creatinine of 6.2 potassium of 3.9. Urinalysis with urine WBC 20 1-50 RBC 3-5 lipase was normal at 158. LFTs were within normal limits. CT abdomen pelvis was performed which showed bilateral atrophic kidneys with right double-J stent mild right hydronephrotic changes to rule out a calcification in the right hemidiaphragmatic area. Small bowel dilatation suggestive of ileus versus intestinal obstruction. Dilatation of the distal aorta measuring 2.7 cm by femoral stent. General surgery has been consulted. She already started having bowel movement. Will start clear liquid diet and advanced as tolerated await General surgery evaluation nephrology will be consulted for inpatient hemodialysis. UTI will treat with antibiotics ceftriaxone follow urine culture Hypertension resume home medication disorder home medication End-stage renal disease on hemodialysis Mondays and Fridays small-bowel obstruction Patient is on clear diet now, will advance diet per general surgeon evaluation pain is tolerable patient denies nausea vomiting, abdomen pain, patient had a bowel movement a.m. today 9/14: patient tolerated breakfast in the morning, denies abdomen pain, nausea vomiting UTI Patient is on ceftriaxone urine culture has no growth Patient is asymptomatic Discontinue ceftriaxone end-stage renal disease and on hemodialysis Sunday and Fridays consult research specialist for dialysis BUN creatinine close to baseline No sign of fluid overload patient is on hemodialysis , patient underwent dialysis yesterday, patient felt comfortable on dialysis without complication no sign of fluid overload 04/12 Chronic anemia Hemoglobin stable Likely secondary to chronic renal failure and chronic medical issues management per research specialist patient is on epoetin hemoglobin 10.6, stable essential hypertension Continue losartan 25 mg daily p.o., nifedipine 6 mg daily p.o. DVT prophylaxis heparin subQ Code status full Subjective Date/time seen: 04/12/24 08:23 Interval history: I saw examined patient today, patient tolerated breakfast with regular renal diet. Patient denies abdomen pain, nausea vomiting. No new issue or event over the night. patient tolerated dialysis well yesterday. patient is afebrile, blood pressure stable, pulse ox 96 on room air Exam Narrative: GENERAL: Pleasant, in no acute distress. Well-nourished. - EYES: EOMI. Anicteric. - HENT: Moist mucous membranes. - LUNGS: Clear to auscultation bilaterally, no wheezing, rhonchi, or rales. - CARDIOVASCULAR: Regular rate and rhythm. No murmur. No JVD. - ABDOMEN: Soft, abdominal te
[2024-04-12] MEDS: FUROSEMIDE 40 MG TABLET PO ×2 (08:51→17:14)
[2024-04-12] MEDS: NIFEdipine 30 MG TAB.ER.24 60 MG PO (08:51)
[2024-04-12] MEDS: hydrALAZINE HCL 25 MG TABLET PO (08:51)
[2024-04-12] MEDS: LOSARTAN POTASSIUM 25 MG TABLET PO (08:51)
[2024-04-12] MEDS: ASPIRIN 325 MG TABLET PO (08:51)
[2024-04-12] MEDS: carvediloL 6.25 MG TABLET PO ×2 (08:52→17:14)
[2024-04-12] MEDS: CHOLECALCIFEROL 1,000 UNITS TABLET 1000 UNITS PO (08:52)
[2024-04-12 09:26] LABS: Hematocrit 33.6 % (37.0-47.0); Hemoglobin 10.6 g/dL (12.0-15.0); Mean Corpuscular HGB Conc 31.5 g/dl (32-36); Mean Corpuscular Hemoglobin 29.1 pg (26-34); Mean Corpuscular Volume 92.3 fl (80-100); Mean Platelet Volume 11.5 fl (7.4-10.4); Platelet Count Result 204 k/mm3 (150-375); Red Blood Count 3.64 M/mm3 (4.2-5.4); White Blood Count 6.5 K/mm3 (4.5-10.0)
[2024-04-12 09:44] LABS: Anion Gap 11 mmol/L (4-12); Blood Urea Nitrogen 23 mg/dL (7-17); Calcium 9.8 mg/dL (8.4-10.2); Carbon Dioxide 30 mmol/L (22-30); Chloride 96 mmol/L (98-107); Estimated CRCL calculation 10 ml/min; Estimated Glomerular Filt Rate 12; Glucose 140 mg/dL (65-110); Potassium 3.1 mmol/L (3.4-5.0); Sodium 137 mmol/L (137-145)
--- NOTE | 2024-04-12 13:46 | P.PNNP_ITS ---
Progress Note: A&P Assessment and Plan (1) End stage renal disease: Code(s): N18.6 - End stage renal disease Status: Chronic Assessment and Plan: * HD done yesterday * Volume status looks good * Electrolytes look okay (2) Small bowel obstruction: Code(s): K56.609 - Unspecified intestinal obstruction, unspecified as to partial versus complete obstruction Status: Acute Assessment and Plan: * CT scan shows dilated small bowel suspicious for partial small bowel obstruction versus ileus * she also had vomiting and diarrhea 5-6 days ago prior to admission (which has resolved) * had been having bowel movements since admission * tolerating clear liquid diet with diet being advanced * General Surgery is following * She feels much better and is hoping to be discharged. (3) Essential hypertension: Code(s): I10 - Essential (primary) hypertension Status: Chronic Assessment and Plan: * Systolic very high early this morning. * Will have nursing call me if a blood pressure from this afternoon * She has received her blood pressure meds today (4) Anemia: Code(s): D64.9 - Anemia, unspecified Status: Chronic Assessment and Plan: * due to ESRD * Hemoglobin 10.6 today * Getting Epogen (5) UTI (urinary tract infection): Code(s): N39.0 - Urinary tract infection, site not specified Status: Suspected Assessment and Plan: * admission UA suggestive * follow-up on urine culture - negative to date * on antibiotics Subjective Date/time seen: 04/12/24 13:46 Interval history: Patient is eager for discharge. She is due for dialysis on Sunday Exam Narrative: General: thin WD/WN female in NAD Heart: normal S1 and S2; no rub or gallop Lungs: clear to auscultation Abdomen: soft, mild TTP, nondistended, positive bowel sounds Extremities: no cyanosis or clubbing; no edema Skin: No rash Objective Data Vital Signs Vital Signs: Vital Signs - 24 hr 04/11/24 14:03 04/11/24 14:00 04/11/24 16:57 Temperature 96.9 F L Pulse Rate 54 L 80 Respiratory Rate 14 Blood Pressure 167/53 H Pulse Oximetry 100 Oxygen Delivery Room Air 04/11/24 16:00 04/11/24 20:50 04/11/24 20:00 Temperature 97.5 F L Pulse Rate 50 L 52 L Respiratory Rate 18 Blood Pressure 142/52 H Pulse Oximetry 100 Oxygen Delivery Room Air 04/11/24 20:00 04/12/24 00:00 04/12/24 04:00 Temperature Pulse Rate 80 54 L 49 L Respiratory Rate Blood Pressure Pulse Oximetry Oxygen Delivery 04/12/24 06:00 04/12/24 08:52 04/12/24 09:56 Temperature 98.0 F Pulse Rate 62 62 Respiratory Rate 12 Blood Pressure 198/66 H Pulse Oximetry 98 96 Oxygen Delivery Room Air 04/12/24 08:02 04/12/24 08:49 Temperature Pulse Rate 54 L 62 Respiratory Rate 18 Blood Pressure Pulse Oximetry 98 Oxygen Delivery Room Air Intake/Output Intake/Output: Intake & Output 04/09/24 04/10/2403/30
--- NOTE | 2024-04-12 13:46 | PM.PNNEP ---
Progress Note: A&P Assessment and Plan (1) End stage renal disease: Code(s): N18.6 - End stage renal disease Status: Chronic Assessment and Plan: HD done yesterday Volume status looks good Electrolytes look okay (2) Small bowel obstruction: Code(s): K56.609 - Unspecified intestinal obstruction, unspecified as to partial versus complete obstruction Status: Acute Assessment and Plan: CT scan shows dilated small bowel suspicious for partial small bowel obstruction versus ileus she also had vomiting and diarrhea 5-6 days ago prior to admission (which has resolved) had been having bowel movements since admission tolerating clear liquid diet with diet being advanced General Surgery is following She feels much better and is hoping to be discharged. (3) Essential hypertension: Code(s): I10 - Essential (primary) hypertension Status: Chronic Assessment and Plan: Systolic very high early this morning. Will have nursing call me if a blood pressure from this afternoon She has received her blood pressure meds today (4) Anemia: Code(s): D64.9 - Anemia, unspecified Status: Chronic Assessment and Plan: due to ESRD Hemoglobin 10.6 today Getting Epogen (5) UTI (urinary tract infection): Code(s): N39.0 - Urinary tract infection, site not specified Status: Suspected Assessment and Plan: admission UA suggestive follow-up on urine culture - negative to date on antibiotics Subjective Date/time seen: 04/12/24 13:46 Interval history: Patient is eager for discharge. She is due for dialysis on Sunday Exam Narrative: General: thin WD/WN female in NAD Heart: normal S1 and S2; no rub or gallop Lungs: clear to auscultation Abdomen: soft, mild TTP, nondistended, positive bowel sounds Extremities: no cyanosis or clubbing; no edema Skin: No rash Objective Data Vital Signs Vital Signs: Vital Signs - 24 hr 04/11/24 14:03 04/11/24 14:00 04/11/24 16:57 Temperature 96.9 F L Pulse Rate 54 L 80 Respiratory Rate 14 Blood Pressure 167/53 H Pulse Oximetry 100 Oxygen Delivery Room Air 04/11/24 16:00 04/11/24 20:50 04/11/24 20:00 Temperature 97.5 F L Pulse Rate 50 L 52 L Respiratory Rate 18 Blood Pressure 142/52 H Pulse Oximetry 100 Oxygen Delivery Room Air 04/11/24 20:00 04/12/24 00:00 04/12/24 04:00 Temperature Pulse Rate 80 54 L 49 L Respiratory Rate Blood Pressure Pulse Oximetry Oxygen Delivery 04/12/24 06:00 04/12/24 08:52 04/12/24 09:56 Temperature 98.0 F Pulse Rate 62 62 Respiratory Rate 12 Blood Pressure 198/66 H Pulse Oximetry 98 96 Oxygen Delivery Room Air 04/12/24 08:02 04/12/24 08:49 Temperature Pulse Rate 54 L 62 Respiratory Rate 18 Blood Pressure Pulse Oximetry 98 Oxygen Delivery Room Air Intake/Output Intake/Output: Intake & Output 04/09/24 04/10/24 04/11/24 04/12/24 23:59 23:59 23:59 23:59 Intake Total 100 860 750 800 Output Total 1 496 Balance 100 859 254 800 Meds/Results Medications: Active Medications Generic Name Dose Route Start Last Admin Trade Name Freq PRN Reason Stop Dose Admin Aspirin 325 mg 04/10/24 09:35 04/12/24 08:51 Aspirin 325 Mg Tablet PO 325 mg DAILY ANDRÉS Administration Carvedilol 6.25 mg 04/10/24 09:40 04/12/24 08:52 Carvedilol 6.25 Mg Tablet PO 6.25 mg BIDWM ANDRÉS Administration Clonazepam 0.5 mg 04/11/24 21:00 04/11/24 20:21 Clonazepam (*Crx) 0.5 Mg Tablet PO 0.5 mg HS ANDRÉS Administration Docusate Sodium 100 mg 04/10/24 09:25 Docusate Sodium 100 Mg Capsule PO DAILY PRN Constipation Furosemide 40 mg 04/10/24 17:00 04/12/24 08:51 Furosemide 40 Mg Tablet PO 40 mg BID ANDRÉS Administration Gabapentin 300 mg 04/10/24 21:00 04/11/24 20:21 Gabapentin 300 Mg Capsule PO 300 mg HS ANDRÉS Admi
--- NOTE | 2024-04-12 14:36 | PC.NURSE ---
Dr. Goldstein (nephrology) called as requested for blood pressure of 190/60 and stated to give the prn IV Hydralazine as ordered, change scheduled po hydralazine to 50mg BID, hold discharge for now and recheck blood pressure in 2hrs. BP was verified by second RN Mary. Patient made aware of instructions and verbalized understanding. Will administer medication and continue to monitor.
[2024-04-12] MEDS: hydrALAZINE HCL 20 MG/ML VIAL 10 MG IV PUSH ×2 (14:40→21:09)
--- NOTE | 2024-04-12 14:41 | PC.NURSE ---
1440 IV Hydralazine administered as ordered and will recheck blood pressure in 2 hrs.
--- NOTE | 2024-04-12 16:43 | PC.NURSE ---
Torito Teague called and was made aware of continued blood pressure of 180/56 with heart rate of 57 and stated to continue to hold discharge related to blood pressure and give Nifedipine 30mg po x1 now and continue to monitor.
--- NOTE | 2024-04-12 16:53 | PCDIET ---
MD Dejesus notified at 1652 about patient's elevated blood pressure, orders received from DR. Goldstein of medication change and statement to hold off on discharge today related to blood pressure. MD Dejesus stated to place nurse monitoring back on and continue to monitor.
[2024-04-12] MEDS: NIFEdipine 30 MG TAB.ER.24 PO (17:15)
[2024-04-12] MEDS: hydrALAZINE HCL 25 MG TABLET 50 MG PO (17:15)
[2024-04-12] MEDS: GABAPENTIN 300 MG CAPSULE PO (20:01)
[2024-04-12] MEDS: clonazePAM (*CRX) 0.5 MG TABLET PO (20:02)
[2024-04-13] VITALS (16 sets, daily range): BP systolic 184–202; BP diastolic 58–68; PULSE 59–72; RESP 14–20; TEMP 36.3–37.7; O2SAT 97–98
[2024-04-13] MEDS: hydrALAZINE HCL 20 MG/ML VIAL 10 MG IV PUSH ×3 (03:43→20:48)
[2024-04-13] MEDS: CHOLECALCIFEROL 1,000 UNITS TABLET 1000 UNITS PO (08:35)
[2024-04-13] MEDS: carvediloL 6.25 MG TABLET PO ×2 (08:35→17:41)
[2024-04-13] MEDS: FUROSEMIDE 40 MG TABLET PO ×2 (08:35→17:41)
[2024-04-13] MEDS: hydrALAZINE HCL 25 MG TABLET 50 MG PO ×2 (08:35→17:41)
[2024-04-13] MEDS: LOSARTAN POTASSIUM 25 MG TABLET PO (08:35)
[2024-04-13] MEDS: ASPIRIN 325 MG TABLET PO (08:35)
[2024-04-13] MEDS: HEPARIN SODIUM 5,000 UNITS/ML VIAL 5000 UNITS SUB-Q ×2 (08:35→20:47)
[2024-04-13] MEDS: NIFEdipine 30 MG TAB.ER.24 60 MG PO (08:35)
--- NOTE | 2024-04-13 09:44 | P.PNNP_ITS ---
Progress Note: A&P Assessment and Plan (1) End stage renal disease: Code(s): N18.6 - End stage renal disease Status: Chronic Assessment and Plan: * HD is due tomorrow. * Volume status looks good * Electrolytes look okay (2) Small bowel obstruction: Code(s): K56.609 - Unspecified intestinal obstruction, unspecified as to partial versus complete obstruction Status: Acute Assessment and Plan: * CT scan shows dilated small bowel suspicious for partial small bowel obstruction versus ileus * she also had vomiting and diarrhea 5-6 days ago prior to admission (which has resolved) * had been having bowel movements since admission * tolerating clear liquid diet with diet being advanced * General Surgery is following * She feels much better and is hoping to be discharged. (3) Essential hypertension: Code(s): I10 - Essential (primary) hypertension Status: Chronic Assessment and Plan: * Systolic very high early this morning. * It was high yesterday also. She was given p.r.n. hydralazine and the scheduled hydralazine was increased also she was given an extra dose of nifedipine. Blood pressure still high this morning. Sometimes it takes a day or so for the nifedipine to kick in so will give another 90 this morning. * Consider higher dose of hydralazine or possibly changing from losartan to irbesartan but I do not make too many changes at once. (4) Anemia: Code(s): D64.9 - Anemia, unspecified Status: Chronic Assessment and Plan: * due to ESRD * Hemoglobin 10.6 today * Getting Epogen * Will hold the blood pressure is high (5) UTI (urinary tract infection): Code(s): N39.0 - Urinary tract infection, site not specified Status: Suspected Assessment and Plan: * admission UA suggestive * follow-up on urine culture - negative to date * finished atbs Subjective Date/time seen: 04/13/24 09:44 Interval history: Patient feels okay. No chest pain or shortness of breath Blood pressure was high yesterday and so received extra nifedipine. Exam Narrative: General: thin WD/WN female in NAD Heart: normal S1 and S2; no rub or gallop Lungs: clear to auscultation Abdomen: soft, mild TTP, nondistended, positive bowel sounds Extremities: no cyanosis or clubbing; no edema Skin: No rash or subQ nodules Objective Data Vital Signs Vital Signs: Vital Signs - 24 hr 04/12/24 09:56 04/12/24 14:00 04/12/24 16:41 Temperature 97.9 F Pulse Rate 55 L 57 L Respiratory Rate 18 Blood Pressure 190/60 H 180/56 H Pulse Oximetry 96 97 Oxygen Delivery Room Air 04/12/24 17:14 04/12/24 17:19 04/12/24 20:32 Temperature 98.3 F Pulse Rate 58 L 70 58 L Respiratory Rate 14 Blood Pressure 184/62 H Pulse Oximetry 99 Oxygen Delivery 04/12/24 20:00 04/12/24 22:05 04/13/24 03:38 Temperature Pulse Rate Respiratory Rate Blood Pressure 142/68 H 198/64 H Pulse Oximetry Oxygen Delivery Room Air 04/12/24 20:00 04/13/24 00:00 04/13/24 04:00 Temperature Pulse Rate 57 L 61 65 Respiratory Rate Blood Pressure Pulse Oxim
--- NOTE | 2024-04-13 09:44 | PM.PNNEP ---
Progress Note: A&P Assessment and Plan (1) End stage renal disease: Code(s): N18.6 - End stage renal disease Status: Chronic Assessment and Plan: HD is due tomorrow. Volume status looks good Electrolytes look okay (2) Small bowel obstruction: Code(s): K56.609 - Unspecified intestinal obstruction, unspecified as to partial versus complete obstruction Status: Acute Assessment and Plan: CT scan shows dilated small bowel suspicious for partial small bowel obstruction versus ileus she also had vomiting and diarrhea 5-6 days ago prior to admission (which has resolved) had been having bowel movements since admission tolerating clear liquid diet with diet being advanced General Surgery is following She feels much better and is hoping to be discharged. (3) Essential hypertension: Code(s): I10 - Essential (primary) hypertension Status: Chronic Assessment and Plan: Systolic very high early this morning. It was high yesterday also. She was given p.r.n. hydralazine and the scheduled hydralazine was increased also she was given an extra dose of nifedipine. Blood pressure still high this morning. Sometimes it takes a day or so for the nifedipine to kick in so will give another 90 this morning. Consider higher dose of hydralazine or possibly changing from losartan to irbesartan but I do not make too many changes at once. (4) Anemia: Code(s): D64.9 - Anemia, unspecified Status: Chronic Assessment and Plan: due to ESRD Hemoglobin 10.6 today Getting Epogen Will hold the blood pressure is high (5) UTI (urinary tract infection): Code(s): N39.0 - Urinary tract infection, site not specified Status: Suspected Assessment and Plan: admission UA suggestive follow-up on urine culture - negative to date finished atbs Subjective Date/time seen: 04/13/24 09:44 Interval history: Patient feels okay. No chest pain or shortness of breath Blood pressure was high yesterday and so received extra nifedipine. Exam Narrative: General: thin WD/WN female in NAD Heart: normal S1 and S2; no rub or gallop Lungs: clear to auscultation Abdomen: soft, mild TTP, nondistended, positive bowel sounds Extremities: no cyanosis or clubbing; no edema Skin: No rash or subQ nodules Objective Data Vital Signs Vital Signs: Vital Signs - 24 hr 04/12/24 09:56 04/12/24 14:00 04/12/24 16:41 Temperature 97.9 F Pulse Rate 55 L 57 L Respiratory Rate 18 Blood Pressure 190/60 H 180/56 H Pulse Oximetry 96 97 Oxygen Delivery Room Air 04/12/24 17:14 04/12/24 17:19 04/12/24 20:32 Temperature 98.3 F Pulse Rate 58 L 70 58 L Respiratory Rate 14 Blood Pressure 184/62 H Pulse Oximetry 99 Oxygen Delivery 04/12/24 20:00 04/12/24 22:05 04/13/24 03:38 Temperature Pulse Rate Respiratory Rate Blood Pressure 142/68 H 198/64 H Pulse Oximetry Oxygen Delivery Room Air 04/12/24 20:00 04/13/24 00:00 04/13/24 04:00 Temperature Pulse Rate 57 L 61 65 Respiratory Rate Blood Pressure Pulse Oximetry Oxygen Delivery 04/13/24 05:39 04/13/24 06:00 04/13/24 09:08 Temperature 99.9 F H Pulse Rate 64 Respiratory Rate 14 Blood Pressure 184/58 H 188/60 H Pulse Oximetry 98 Oxygen Delivery Intake/Output Intake/Output: Intake & Output 04/10/24 04/11/24 04/12/24 04/13/24 23:59 23:59 23:59 23:59 Intake Total 542 953 4797 790 Output Total 1 496 1 Balance 295 718 3061 790 Meds/Results Medications: Active Medications Generic Name Dose Route Start Last Admin Trade Name Freq PRN Reason Stop Dose Admin Aspirin 325 mg 04/10/24 09:35 04/13/24 08:35 Aspirin 325 Mg Tablet PO 325 mg DAILY ANDRÉS Administration Carvedilol 6.25 mg 04/10/24 09:40 04/13/24 08:35 Carvedilol 6.25 Mg Tablet PO 6.25 mg BIDWM ANDRÉS Administration Clonazepam
--- NOTE | 2024-04-13 10:50 | PM.IMPN ---
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 and plan -patient with history of HD on Wednesdays (3) Anxiety: Code(s): F41.9 - Anxiety disorder, unspecified Status: Acute (4) Atrial fibrillation: Code(s): I48.91 - Unspecified atrial fibrillation Status: Chronic (5) End stage renal disease: Code(s): N18.6 - End stage renal disease Status: Chronic (6) Peripheral artery disease: Code(s): I73.9 - Peripheral vascular disease, unspecified Status: Acute (7) Essential hypertension: Code(s): I10 - Essential (primary) hypertension Status: Chronic Assessment and Plan: -continue losartan 25 mg daily, nifedipine 60 mg daily -b/p: has been consistently high during admission -may consider higher dose of hydralazine, or changing losartan to irbesartan, change on hold at this time per Nephrology Plan Continue home medications: VTE Prophylaxis: Heparin subQ DIET: Renal diet Anticipated hospital stay: > 2 days Code Status: Full code Time Spent With Patient Time with patient: 25 - 35 minutes Subjective Date/time seen: 04/13/24 10:50 Interval history: Patient seen this morning, A&O x3, she denies any overnight events. She reports she was going to discharge yesterday put her b/p: was moderately elevated, she has history of ESRD on HD Wednesdays, she denies any SOB, fever chills nausea vomiting this morning. Review of Systems Review of Systems: All systems reviewed & are unremarkable except as noted in HPI and below Exam Narrative: GENERAL: Pleasant, in no acute distress. Well-nourished. - EYES: EOMI. Anicteric. - HENT: Moist mucous membranes. - LUNGS: Clear to auscultation bilaterally, no wheezing, rhonchi, or rales. - CARDIOVASCULAR: Regular rate and rhythm. No murmur. No JVD. - ABDOMEN: Soft, abdominal tender and non-distended. No palpable masses. - EXTREMITIES: No edema. Peripheral pulses 2+. Non-tender. - NEUROLOGIC: No focal neurological deficits. CN II-XII grossly intact. - PSYCHIATRIC: Awake, Alert and oriented x 3. Appropriate mood and affect. - SKIN: No rashes or lesions. Warm. - LYMPH: No cervical lymphadenopathy. Objective Data Vital Signs Vital Signs: Vital Signs - 24 hr 04/12/24 14:00 04/12/24 16:41 04/12/24 17:14 Temperature 97.9 F Pulse Rate 55 L 57 L 58 L Respiratory Rate 18 Blood Pressure 190/60 H 180/56 H Pulse Oximetry 97 Oxygen Delivery 04/12/24 17:19 04/12/24 20:32 04/12/24 20:00 Temperature 98.3 F Pulse Rate 70 58 L Respiratory Rate 14 Blood Pressure 184/62 H Pulse Oximetry 99 Oxygen Delivery Room Air 04/12/24 22:05 04/13/24 03:38 04/12/24 20:00 Temperature Pulse Rate 57 L Respiratory Rate Blood Pressure 142/68 H 198/64 H Pulse Oximetry Oxygen Delivery 04/13/24 00:00 04/13/24 04:00 04/13/24 05:39 Temperature Pulse Rate 61 65 Respiratory Rate Blood Pressure 184/58 H Pulse Oximetry Oxygen Delivery 04/13/24 06:00 04/13/24 09:08 04/13/24 08:00 Temperature 99.9 F H Pulse Rate 64 64 Respiratory Rate 14 14 Blood Pressure 188/60 H Pulse Oximetry 98 98 Oxygen Delivery Room Air Intake/Output Intake/Output: Intake & Output 04/10/24 04/11/24 04/12/24 04/13/24 23:59 23:59 23:59 23:59 Intake Total 185 978 7739 790 Output Total 1 4
[2024-04-13] MEDS: NIFEdipine 30 MG TAB.ER.24 PO (12:15)
[2024-04-13] MEDS: DOCUSATE SODIUM 100 MG CAPSULE PO (12:18)
--- NOTE | 2024-04-13 17:43 | PC.NURSE ---
Patient took 1 PO Clonazepam from personal supply at 1700. Has scheduled Clonazepam ordered for 2100, pt felt that she needed to take one for breakthrough anxiety. Hospitalist is aware.
--- NOTE | 2024-04-13 17:47 | PC.NURSE ---
MD notified of high blood pressures throughout the day. Systolic's of 200. PRN hydralazine and ANDRÉS hydralazine given. Systolic only down to 198 after 10mg IVP. Pt is asymptomatic currently but did c/o headache, pounding heart rate and ear ringing this AM. MD came to bedside to assess and discuss with patient. Given she is asymptomatic, will hold off on adding any new medication. Assess BP after dialysis tomorrow per MD. Will continue to monitor.
[2024-04-13] MEDS: clonazePAM (*CRX) 0.5 MG TABLET PO (20:47)
[2024-04-13] MEDS: GABAPENTIN 300 MG CAPSULE PO (20:47)
[2024-04-14] VITALS (21 sets, daily range): BP systolic 130–178; BP diastolic 54–76; PULSE 59–87; RESP 12–18; TEMP 36.2–37.2; O2SAT 96–100
[2024-04-14] MEDS: hydrALAZINE HCL 20 MG/ML VIAL 10 MG IV PUSH (00:45)
[2024-04-14 06:55] LABS: Hematocrit 34.3 % (37.0-47.0); Hemoglobin 10.6 g/dL (12.0-15.0); Mean Corpuscular HGB Conc 30.9 g/dl (32-36); Mean Corpuscular Hemoglobin 28.6 pg (26-34); Mean Corpuscular Volume 92.7 fl (80-100); Mean Platelet Volume 11.2 fl (7.4-10.4); Platelet Count Result 201 k/mm3 (150-375); Red Cell Distribution Width 14.6 % (11.5-14.5); White Blood Count 7.6 K/mm3 (4.5-10.0)
[2024-04-14 07:31] LABS: Albumin Level 3.9 g/dL (3.5-5.1); Anion Gap 12 mmol/L (4-12); Blood Urea Nitrogen 45 mg/dL (7-17); Calcium 10.6 mg/dL (8.4-10.2); Carbon Dioxide 25 mmol/L (22-30); Chloride 98 mmol/L (98-107); Estimated CRCL calculation 7 ml/min; Estimated Glomerular Filt Rate 8; Glucose 104 mg/dL (65-110); Phosphorus 4.8 mg/dL (2.5-4.5); Potassium 3.6 mmol/L (3.4-5.0); Sodium 135 mmol/L (137-145)
[2024-04-14] MEDS: hydrALAZINE HCL 25 MG TABLET 50 MG PO (07:37)
--- NOTE | 2024-04-14 10:14 | PM.DS ---
DS: Admitting Diagnosis Discharge Date 04/14/2024 Admitting Diagnosis small-bowel obstruction end-stage renal disease anxiety atrial fibrillation peripheral arterial hypertension DS: Discharge Diagnosis Discharge Diagnosis (1) Small bowel obstruction: Code(s): K56.609 - Unspecified intestinal obstruction, unspecified as to partial versus complete obstruction Status: Resolved Assessment and Plan: Resolved -patient had bowel rest seen by general surgeon -she denies any nausea vomiting or abdominal pain, also reported she had a bowel movement yesterday 04/14/24: Date of discharge. Pt denies having had any BM's for this provider, but does report flatus and has reportedly refused the Miralax that has been offered to her as she did not want to take it with having a room mate in her room. She wants to take at home to clean herself out. Gen Lara has signed off of the case and the pt is otherwise stable for discharge at this time. (2) End-stage renal disease on hemodialysis: Code(s): N18.6 - End stage renal disease; Z99.2 - Dependence on renal dialysis Status: Chronic Assessment and Plan: -notereader following appreciate recommendation and plan -patient with history of HD on Wednesdays04/14/24: Date of discharge. Pt dialyzed today. I have spoken with her Nude Model, Dr. Limon regarding his agreement for discharge and he is comfortable for discharge after dialysis today and believes she is someone who just has poorly controlled HTN. He suggests following her normal dialysis schedule and to continue the current regimen of anti-hypertensives. (3) Anxiety: Code(s): F41.9 - Anxiety disorder, unspecified Status: Chronic Assessment and Plan: 04/14/24: Date of discharge: Continue all home medications. (4) Atrial fibrillation: Code(s): I48.91 - Unspecified atrial fibrillation Status: Chronic Assessment and Plan: 04/14/24: Date of discharge: Continue all home medications for rate control and anticoagulation. (5) End stage renal disease: Code(s): N18.6 - End stage renal disease Status: Chronic Assessment and Plan: 04/14/24: Date of discharge: continue HD schedule. Confirmed ok to discharge with Dr. limon, the pt's notereader. (6) Peripheral artery disease: Code(s): I73.9 - Peripheral vascular disease, unspecified Status: Chronic Assessment and Plan: 04/14/24: Date of discharge: Continue all therapies. (7) Essential hypertension: Code(s): I10 - Essential (primary) hypertension Status: Chronic Assessment and Plan: -continue losartan 25 mg daily, nifedipine 60 mg daily -b/p: has been consistently high during admission -may consider higher dose of hydralazine, or changing losartan to irbesartan, change on hold at this time per Nephrology 04/14/24: Date of discharge. Discussed with Dr. Limon prior to discharge and he would like patient to be discharged on the medications she is currently taking including increased dose of losartan. He also suggest continuing hydralazine, nifedipine, carvedilol and furosemide. Patient will follow-up his clinic post discharge. DS: Summary Hospital Course Reason for hospitalization: Small-bowel obstruction, end-stage renal Hospital Course: This very pleasant 68-year-old female patient with past medical history significant of end-stage renal disease on hemodialysis with this could be due to, peripheral vascular disease, hypertension, atrial fibrillation, anxiety and repetitive small-bowel obstructions presented to the Emergency was subsequently admitted on April 09, 2024. she presented to the emergency room with complaints of having nausea, vomiting and diarrhea as well as some abdominal pain. In the emergency room it was found that patient had a potential small bowel obstruction. she was therefore admitted to hospital, genera
--- NOTE | 2024-04-14 10:20 | PM.PNNEP ---
Progress Note: A&P Assessment and Plan (1) End stage renal disease: Code(s): N18.6 - End stage renal disease Status: Chronic Assessment and Plan: HD today continue outpatient schedule of Mondays and Fridays follow electrolytes, volume status, and clearance (2) Small bowel obstruction: Code(s): K56.609 - Unspecified intestinal obstruction, unspecified as to partial versus complete obstruction Status: Resolved Assessment and Plan: CT scan shows dilated small bowel suspicious for partial small bowel obstruction versus ileus she also had vomiting and diarrhea 5-6 days ago prior to admission (which has resolved) had been having bowel movements since admission tolerating oral intake General Surgery following (3) Essential hypertension: Code(s): I10 - Essential (primary) hypertension Status: Chronic Assessment and Plan: noted elevate BPs over the weekend appears better currently nifedipine XL increased to 90mg qday with noted increase in hydralazine and losartan dosage BP seems to be doing better (4) Anemia: Code(s): D64.9 - Anemia, unspecified Status: Chronic Assessment and Plan: due to ESRD H/H in range hold JESSY in the context of elevated BP (5) UTI (urinary tract infection): Code(s): N39.0 - Urinary tract infection, site not specified Status: Suspected Assessment and Plan: admission UA suggestive follow-up on urine culture - negative to date completed antibiotics Not opposed to discharge from renal perspective following dialysis today if otherwise medically stable. Will continue to follow. Subjective Date/time seen: 04/14/24 10:20 Interval history: Follow-up for end stage renal disease on hemodialysis. Chart reviewed since last seen -- issues with HTN over the weekend but appears to be doing better; tolerating dialysis treatment at the time of my visit (seen on HD at 10:10AM); tolerating oral intake without any issues or problems; no apparent distress noted; no issues/events overnight or earlier this morning. Exam Narrative: General: thin WD/WN female in NAD Heart: normal S1 and S2; no rub Lungs: clear to auscultation Abdomen: soft, mild TTP, nondistended, positive bowel sounds Extremities: no cyanosis or clubbing; no edema Skin: warm and dry Objective Data Vital Signs Vital Signs: Vital Signs Temp Pulse Resp BP Pulse Ox O2 Del Method 04/14/24 10:15 70 172/74 H 04/14/24 10:00 65 172/69 H 04/14/24 09:45 66 166/63 H 04/14/24 09:30 62 169/63 H 04/14/24 09:15 62 177/73 H 04/14/24 11:30 66 145/71 H 04/14/24 10:45 67 163/74 H 04/14/24 10:30 75 144/76 H 04/14/24 08:58 59 L 155/73 H 04/14/24 08:48 97.6 F 59 L 16 178/71 H 100 04/14/24 05:45 97.2 F L 62 14 178/54 H 97 04/14/24 04:00 62 04/14/24 01:28 162/58 H 04/14/24 00:00 63 04/13/24 20:00 59 L 04/13/24 20:00 Room Air 04/13/24 23:47 196/62 H 04/13/24 21:58 200/68 H 04/13/24 20:55 98.5 F 61 16 202/62 H 97 04/13/24 16:00 62 04/13/24 15:19 198/62 H 04/13/24 14:00 97.3 F L 60 20 98 04/13/24 13:58 200/60 H Intake/Output Intake/Output: Intake & Output 04/11/24 04/12/24 04/13/24 04/14/24 23:59 23:59 23:59 23:59 Intake Total 750 2380 1890 360 Output Total 496 1 Balance 254 2379 1890 360 Meds/Results Medications: Active Medications Generic Name Dose Route Start Last Admin Trade Name Sherrie PRN Reason Stop Dose Admin Aspirin 325 mg 04/10/24 09:35 04/13/24 08:35 Aspirin 325 Mg Tablet PO 325 mg DAILY ANDRÉS Administration Carvedilol 6.25 mg 04/10/24 09:40 04/13/24 17:41 Carvedilol 6.25 Mg Tablet PO 6.25 mg BIDWM ANDRÉS Administration Clonazepam 0.5 mg 04/11/24 21:00 04/13/24 20:47 Clonazepam (*Crx) 0.5 Mg Tablet PO 0.5 m
[2024-04-14] MEDS: EPOETIN ALFA-EPBX 10,000 UNITS/ML VIAL 10000 UNITS IV PUSH (10:48)
[2024-04-14] MEDS: HEPARIN SODIUM 1,000 UNITS/ML VIAL 5000 UNITS IV PUSH (12:16)
[2024-04-14] MEDS: NIFEdipine 30 MG TAB.ER.24 90 MG PO (13:31)
[2024-04-14] MEDS: LOSARTAN POTASSIUM 25 MG TABLET 50 MG PO (13:31)
[2024-04-14] MEDS: FUROSEMIDE 40 MG TABLET PO (13:31)
[2024-04-14] MEDS: ASPIRIN 325 MG TABLET PO (13:31)
[2024-04-14] MEDS: CHOLECALCIFEROL 1,000 UNITS TABLET 1000 UNITS PO (13:31)
[2024-04-14] MEDS: carvediloL 6.25 MG TABLET PO (13:34)
--- NOTE | 2024-04-14 13:59 | PCPTNOTE ---
Patient declined PT this afternoon stating she just returned from dialysis and is feeling fatigued and cold. Patient states she hopes to discharge home later today. Patient states she has no difficulties or concerns transferring and ambulating without assist at home.
== END 2024-04-14 19:00 | disposition home or self-care (01) | DRG 388 ==
LOC: ANHED 19:21 → ANH3MEDSUR 22:37
PROVIDERS: Hospitalist; Internal Medicine; Internal Medicine Nephrology; Physician Assistant; Admitting Provider Internal Medicine; Emergency Provider Emergency Medicine; Visit Provider Nurse Practitioner Adult Health
DX: K56.609 Unspecified intestinal obstruction, unspecified as to partial versus complete obstruction (principal); N18.6 End stage renal disease; I12.0 Hypertensive chronic kidney disease with stage 5 chronic kidney disease or end stage renal disease; N39.0 Urinary tract infection, site not specified; Z99.2 Dependence on renal dialysis; E03.9 Hypothyroidism, unspecified; F41.9 Anxiety disorder, unspecified; I48.91 Unspecified atrial fibrillation; I73.9 Peripheral vascular disease, unspecified; I25.10 Atherosclerotic heart disease of native coronary artery without angina pectoris; K63.89 Other specified diseases of intestine; Z87.891 Personal history of nicotine dependence; R91.1 Solitary pulmonary nodule; Z90.49 Acquired absence of other specified parts of digestive tract; Z95.1 Presence of aortocoronary bypass graft
CPT/HCPCS: 36415; 71045; 74176; 80048; 80053; 80069; 81001; 83690; 83735; 85025; 85027; 85610; 85730; 86706; 87086; 87340; 87641; 96365; 96375; 96376; 97161; 97165; 99285; A9270; G0257; G0378; J0360; J0696; J1644; J1940; J2405; J7030; Q5105

== ENCOUNTER 2025-05-29 16:07 | Inpatient (IN) | payer MEDICARE, OTHER, SELFPAY ==
[2025-05-29] VITALS (8 sets, daily range): BP systolic 144–205; BP diastolic 54–86; PULSE 51–67; RESP 14–23; TEMP 36.4; O2SAT 97–100; BMI 16.3
--- NOTE | ~2025-05-29 | XR_ITS ---
EXAMINATION: XR chest 1V portable COMPARISON: No comparisons available. HISTORY: vascular catheter not working FINDINGS: Ill-defined spiculated appearing density noted in the left lung apex possibly an area of nodular scarring but incompletely evaluated, this appears more prominent compared to the prior study and may represent a small focus of pneumonia, follow-up recommended to assess resolution No pneumothorax. Heart is normal size. Mediastinal and hilar contours are within normal limits. Poststernotomy. Miscellaneous: Right central line terminates in the SVC. Impression: Please see above Reviewed, dictated and finalized at location P. PATCHER Impression: Please see above
--- NOTE | ~2025-05-29 | XR_ITS ---
PROCEDURE(S): Radiograph abdomen/one view KUB INDICATION(S): Small bowel obstruction. Follow-up. COMPARISON(S): May 31 TECHNIQUE: Two supine radiographic images was/were obtained. FINDINGS: Bowel gas: The bowel gas pattern is non-specific. There are scattered gas throughout the nondilated small bowel and colon. There is no evidence of bowel obstruction. Soft tissues: Multiple coiled metallic structures overlie the right lower quadrant. Bones: Osseous structures appear to be intact. There is a stent in right common iliac artery. There is also a right ureteral stent in place, unchanged. NG tube has its tip in the gastric fundus. Multiple surgical clips overlie the right upper quadrant and the medial right lung. IMPRESSION: No positive evidence for obstruction. Similar to the prior study. Reviewed, dictated and finalized at location A. HER MACHINE OPERATOR
--- NOTE | ~2025-05-29 | XR_ITS ---
EXAMINATION: XR abdomen gastric tube rechec, 05/30/2025 15:15 CDT HISTORY: NGT readvance confirmation COMPARISON: No comparisons available. Technique: 3 view. Findings: Bowel gas pattern unremarkable. No obstruction. No free air. No abnormal calcifications No acute osseous abnormality. Nasogastric tube terminates in the mid stomach. Partially imaged right ureteral stent. Impression: 1. Nasogastric tube in appropriate location Reviewed, dictated and finalized at location P. Impression: 1. Nasogastric tube in appropriate location
--- NOTE | ~2025-05-29 | XR_ITS ---
Abdominal radiograph(s) INDICATION: Small bowel obstruction COMPARISON: One day prior TECHNIQUE: Portable AP supine abdomen FINDINGS: NG tube within gastric fundus. Air-fluid levels cannot be assessed on supine projection. Scattered small and large bowel gas. Right double-J ureteral stent. No acute bony abnormality. IMPRESSION: 1. No significant change or acute abnormality given supine technique. Reviewed, dictated and finalized at location R. LE NEEDLE OPERATOR LOCKSTITCH
--- NOTE | ~2025-05-29 | XR_ITS ---
EXAMINATION: XR chest 2V, 05/29/2025 17:20 CDT HISTORY: weakness COMPARISON: No comparisons available. Technique: 2 views obtained. Findings: Small left upper lobe and right lower lobe infiltrates. No pneumothorax. Heart is normal size. Mediastinal and hilar contours are within normal limits. Post sternotomy. Right central line in the SVC. Impression: Bilateral pneumonia Reviewed, dictated and finalized at location P. Impression: Bilateral pneumonia
--- NOTE | ~2025-05-29 | XR_ITS ---
Abdominal radiograph(s) INDICATION: SBO COMPARISON: CT and x-ray one day prior TECHNIQUE: Portable supine AP abdomen FINDINGS: NG tube sidehole just past GE junction. Air-fluid levels cannot be assessed on supine projection Scattered colonic gas. Small bowel loops not well seen. Right-sided double-J ureteral stent. No acute bony abnormality. IMPRESSION: 1. No acute abnormality identified given supine projection. Reviewed, dictated and finalized at location R.
--- NOTE | ~2025-05-29 | XR_ITS ---
EXAMINATION: XR abdomen/kub 1V DATE: 06/03/2025 05:45 INDICATION: Follow-up small bowel obstruction TECHNIQUE: A supine view of the abdomen on 2 radiographs was obtained. COMPARISON: 06/02/2025 FINDINGS: Advancement of the oral contrast material from the small bowel follow-through from 2 days prior which is now located predominantly in the colon with small amount of residual dilute contrast in the persistently dilated distal ileum at the right lower quadrant. Right internal ureteral stent projecting over expected position. Stenting along the right common iliac artery. Cholecystectomy clips right upper quadrant. Additional surgical clips bilaterally in the pelvis. Median sternotomy wires and mediastinal surgical clips are seen, likely from prior coronary artery bypass grafting. Distal tip of a large-bore dual-lumen central venous catheter extends caudally from the superior vena cava with distal tip in the right atrium. IMPRESSION: 1. Advancement of oral contrast now predominantly within the colon but with residual dilute contrast within the persistently dilated loop of small bowel in the right lower quadrant consistent with persistent intermittent versus partial obstruction. Reviewed, dictated and finalized at location A. UE WORKER IMPRESSION: 1. Advancement of oral contrast now predominantly within the colon but with res idual dilute contrast within the persistently dilated loop of small bowel in th e right lower quadrant consistent with persistent intermittent versus partial o bstruction.
--- NOTE | ~2025-05-29 | US_ITS ---
EXAMINATION: US carotid duplex BI DATE: 06/01/2025 20:59 INDICATION: History of severe left internal carotid artery stenosis TECHNIQUE: Grayscale, color Doppler, and pulsed Doppler images of the cervical carotid arteries were obtained. The degree of vessel stenosis is placed in one of the following categories: normal, <50%, 50-69%, >=70% but less than near- occlusion, near-occlusion, or total occlusion. Note that percent stenosis relative to normal distal artery lumen diameter is indirectly measured from velocity measurements as described by Jono, et al. Radiology 2003; 229:340-346. Notes: Normal: Peak systolic velocity <125 centimeters/sec and no plaque <50%. Peak systolic velocity <125 (EDV <40; ICA/CCA PSV ratio <2.0; used these factors only a tandem lesions or low cardiac output or contralateral disease) 50-69 %: PSV 125-230 (EDV 40-100; ratio 2-4) >= 70% but less than near occlusion: PSV greater than 230 (EDV > 100; ratio> 4.0) Near Occlusion: PSV that is variable; markedly narrowed lumen Occlusion: Absent flow on color/spectral Doppler and no lumen on cardona scale. COMPARISON: Ultrasound dated 08/03/2022. FINDINGS: RIGHT: The right common carotid artery (CCA) peak systolic velocity (PSV) is 40 cm/s. The right internal carotid artery (ICA) PSV is 146 cm/s. The right ICA end- diastolic velocity (EDV) is 30 cm/s. The right ICA/CCA PSV ratio is 3.7. The external carotid artery (ECA) PSV is 104 cm/s. There is antegrade flow in the right vertebral artery. LEFT: The left CCA PSV is 58 cm/s. The left ICA PSV is 269 cm/s. The left ICA EDV is 83 cm/s. The left ICA/CCA PSV ratio is 4.6. The ECA PSV is 64 cm/s. There is antegrade flow in the left vertebral artery. IMPRESSION: 1. 50-69% stenosis in the right internal carotid artery by sonographic criteria. 2. Greater than or equal to 70% stenosis in the left internal carotid artery by sonographic criteria. Reviewed, dictated and finalized at location O. R SERVICE WORKER SPRING IMPRESSION: 1. 50-69% stenosis in the right internal carotid artery by sonographic criteria . 2. Greater than or equal to 70% stenosis in the left internal carotid artery by sonographic criteria.
--- NOTE | ~2025-05-29 | XR_ITS ---
EXAMINATION: XR sm bowel follow through WS DATE: 06/01/2025 15:19 INDICATION: Small bowel obstruction TECHNIQUE: [employer] radiograph(s) of the abdomen was/were obtained. Oral contrast was administered, and sequential radiographs of the abdomen were obtained until oral contrast was noted to be in the proximal colon. COMPARISON: None. FINDINGS: [employer] images demonstrate nasogastric tube tip in proximal side port in the body the stomach. Multiple surgical clips in the abdomen, pelvis and lower chest including cholecystectomy clips in right upper quadrant. Postoperative change of prior ventral hernia mesh repair. Stenting along the right common and external iliac artery. Additional femoral-femoral bypass graft. Atherosclerotic calcifications along the margin of an aneurysmal infrarenal abdominal aorta. Right internal ureteral stent in expected position. There is some gas scattered throughout multiple loops of nondilated small bowel. Additional moderate amount of gas and stool scattered throughout the colon. Contrast extends through a significant length of ileum on the initial 15 minutes. There is subsequently slower progression through the jejunum or the following 4 hours of imaging. There are loops of ileum which are of normal caliber when initially opacified with contrast at 30 minutes but which progressively dilated, most prominent on the three-hour imaging. Contrast can be seen in the hepatic flexure the colon on the 4 hour and 15 minute imaging. IMPRESSION: 1. Likely intermittent or partial small bowel obstruction in the distal ileum with transit time to the colon of between 3-4 hours. 2. Multiple postoperative changes in the abdomen and pelvis as detailed above. Reviewed, dictated and finalized at location A. ERN SETTER IMPRESSION: 1. Likely intermittent or partial small bowel obstruction in the distal ileum w ith transit time to the colon of between 3-4 hours. 2. Multiple postoperative changes in the abdomen and pelvis as detailed above.
--- NOTE | ~2025-05-29 | XR_ITS ---
XR abdomen gastric tube insert INDICATION: NG tube REFERENCE: NONE FINDINGS: A supine view of the abdomen is submitted.Enteric tube is in appropriate position within the stomach. Gaseous distention of the bowel loops are partially included. Osseous structures are intact. IMPRESSION: Enteric tube is in appropriate position. Reviewed, dictated and finalized at location S. EMATICAL STATISTICIAN
--- NOTE | ~2025-05-29 | XR_ITS ---
EXAMINATION: XR chest port-a-cath/central COMPARISON: No comparisons available. 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 No pneumothorax. Heart is normal size. Mediastinal and hilar contours are within normal limits. Poststernotomy. Miscellaneous: Right central line terminates in the atrium. Impression: Line placement as above. Probable early right lower lobe pneumonia Reviewed, dictated and finalized at location P. H CLEANER Impression: Line placement as above. Probable early right lower lobe pneumonia
--- NOTE | ~2025-05-29 | XR_ITS ---
EXAMINATION: XR abdomen/kub 1V DATE: 06/02/2025 07:46 INDICATION: Small bowel obstruction. Follow-up TECHNIQUE: A single portable AP supine frontal image of the abdomen was obtained. COMPARISON: 06/01/2025 FINDINGS: Contrast is noted within large bowel and possibly within the stomach. Right- sided double-J ureteral stent is identified in similar position. Clips are noted in the abdomen. Air-filled loops of small bowel are noted which are distended. Tubing projects over the right hemipelvis. IMPRESSION: 1. Air-filled loops of small bowel noted which are distended. 2. Contrast is noted within the large bowel and possibly within the stomach. If continued concern, consider a CT of the abdomen and pelvis are further assessment. Reviewed, dictated and finalized at location Q. L ARTIST IMPRESSION: 1. Air-filled loops of small bowel noted which are distended. 2. Contrast is noted within the large bowel and possibly within the stomach. If continued concern, consider a CT of the abdomen and pelvis are further asses sment.
--- NOTE | ~2025-05-29 | XR_ITS ---
XR abdomen gastric tube insert INDICATION: KUB INSERT REFERENCE: NONE FINDINGS: A supine view of the abdomen is submitted.Enteric tube terminates in the stomach. Gaseous distention of the bowel loops are noted. No free air is identified. Osseous structures are intact. IMPRESSION: Enteric tube is in appropriate position. Reviewed, dictated and finalized at location S.
--- NOTE | ~2025-05-29 | XR_ITS ---
XR fl guide central line place Indication: Central line placement TECHNIQUE: Fluoroscopy used during central line placement performed by [Yonas Gonzalez MD] on 06/02/2025. Fluoroscopy time is 2 minutes 21 seconds with 16 fluoroscopic images captured. FINDINGS: Correlate with procedure note. IMPRESSION: Fluoroscopy used during central line placement. Reviewed, dictated and finalized at location O. WORKER
--- NOTE | ~2025-05-29 | CT_ITS ---
CT abdomen pelvis wo con INDICATION:n/v, constipation, abd pain, hx obstruction . COMPARISON: 04/09/2024 TECHNIQUE: Axial 2.5 mm images of the abdomen were obtained without IV or oral contrast. Diagnostic sensitivity is limited due to lack of IV contrast. FINDINGS: Pleural plaque calcification at the right lung base is again noted. The liver parenchyma is unremarkable. No intrahepatic mass or ductal dilatation is evident. The patient has had a cholecystectomy. The pancreas and spleen are normal in appearance. The adrenal glands are symmetric in size. Right double-J ureteral stent is in place. There is mild right hydronephrosis. There is atrophy of the left kidney. No intrarenal stones are noted. Evaluation of the stomach and bowel loops are limited due to lack of oral contrast. Distended small bowel loops with multiple air-fluid levels may represent partial to early small bowel obstruction. Moderate fecal loading of the rectum suggestive of constipation. Bladder is moderately distended. No free intraperitoneal fluid or air is evident. There is no significant retroperitoneal lymphadenopathy. Aneurysmal dilatation of the infrarenal abdominal aorta measures up to 3.6 cm. There is extensive vascular calcification. The lower thoracic and lumbar vertebrae are in normal alignment. IMPRESSION: Right double-J ureteral stent is noted. There is mild right hydronephrosis. The left kidneys atrophy. There is fluid filled distended small bowel loops with multiple air-fluid levels may represent partial to early small bowel obstruction. All CT scans at this facility are performed using low dose modulation techniques as appropriate to perform exam including the following: automated exposure control; use of iterative reconstruction technique; adjustment of the mA and/or kV according to patient size (this includes techniques or standardized protocols for targeted exams where dose is matched to indication/reason for exam). Reviewed, dictated and finalized at location S. IMPRESSION: Right double-J ureteral stent is noted. There is mild right hydronephrosis. The left kidneys atrophy. There is fluid filled distended small bowel loops with multiple air-fluid level s may represent partial to early small bowel obstruction. All CT scans at this facility are performed using low dose modulation techniqu es as appropriate to perform exam including the following: automated exposure c ontrol; use of iterative reconstruction technique; adjustment of the mA and/or kV according to patient size (this includes techniques or standardized protocol s for targeted exams where dose is matched to indication/reason for exam).
--- OUTSIDE RECORDS SUMMARY | 2025-05-29 16:11 | XMS_ITS | Patient Health Record ---
Author Organization [facility] Address [address] [place], [place] [id number] Support Name Relationship Address Phone KANNAN JAMESON Emergency Contact Unknown ADITYA JAMESON Guarantor Unknown [phone] Reason For Referral No Information Social History Social History Additional Details Category Social Info Options Details Migrated Social History Migrated Social History Smoking Status : Former smoker , History of tobacco use : Plan Of Treatment No Information Insurance Providers Payer Name Payer Address Payer Phone Subscriber Number Group Number Insured Name Patient Relationship to Insured Coverage Start Date Coverage End Date [facility] [address] [address] [place] [address] [id number] KANNAN JAMESON Spouse - patient is the spouse of the insured Medicare Part [place] [address] [place] [address] [id number] ADITYA JAMESON Self - patient is the insured [facility] [address] [place], [place] [id number] ADITYA JAMESON Self - patient is the insured
--- OUTSIDE RECORDS SUMMARY | 2025-05-29 16:11 | XMS_ITS | Clinical Summary ---
Author Organization [facility] Address [address] [place] [address] Care Team Providers Care Used Car Lot Attendant Name Role Phone Radha Murphy MD Primary Care Provider [phone] Radha Murphy MD Unavailable [phone] Source Comments [facility],non-owned Affiliates and Associated Physician Practices is amultiple site organization consisting of ambulatory clinics and hospital sitesin [place], [place], [place] and [place]. This disclosure is being madepursuant to the Care Everywhere program and may not contain all information available regarding this patient. Last updated 18.[facility] Allergies Active Allergy Reactions Criticality Noted Date Comments Ciprofloxacin Other Low 02/03/2021 Pt said she does not want this med due to hearing that it causes aneurysms and she has one Red Dye Itching 01/10/2018 Fentanyl Other Reaction: Decreased respirat, , Reaction: OTHER, Hydromorphone Other Reaction: UNKNOWN, Nitrofurantoin Diarrhea,Other Low 01/26/2020 Shellfish-Derived Products Itching,Rash Medium 021 Medications * Be aware that medications may not be up to date on this document. Alwaysverify current medications with the patient. ROBERTH KNIGHTICK 140 MG/ML auto-injector 8 Active clonazePAM (KLONOPIN) 1 MG tablet Take 1 mg by mouth once daily as needed 1 8 Active aspirin EC (ECOTRIN) 81 MG tablet aspirin 81 mg tablet,delayed release Take 1 tablet every day by oral route. Active carvedilol (COREG) 6.25 MG tablet Take 6.25 mg by mouth 2 times daily 1 Active vitamin D3 (CHOLECALCIFERO L) (25 MCG) 1000 UNIT capsule Take 1,000 Units by mouth once daily Active Docusate Sodium (DSS) 100 MG Take 100 mg by mouth Active furosemide (LASIX) 40 MG tablet TAKE 1 TABLET BY MOUTH BEFORE BREAKFAST AND BEFORE SUPPER 1 Active gabapentin (NEURONTIN) 300 MG capsule Take 300 mg by mouth once daily 1 Active hydrALAZINE (APRESOLINE) 50 MG tablet Take 75 mg by mouth 3 times daily 1 Active losartan (COZAAR) 25 MG tablet TAKE 1 TABLET BY MOUTH ONCE DAILY EXCEPT SUNDAY AND Sunday 1 Active mirtazapine (REMERON) 15 MG tablet Take 15 mg by mouth at bedtime 1 Active NIFEdipine CR 24hr (ADALAT CC) 60 MG tablet Take 60 mg by mouth once daily 1 Active thyroid (SUPERVISOR VAT [employer]SE THYROID) 60 MG tablet Take 60 mg by mouth once daily Active polyethylene glycol 3350 (MIRALAX) 17 g packet Take by mouth once daily Active ondansetron (ZOFRAN) 4 MG tablet Take 4 mg by mouth every 6 hours as needed for Nausea/Vomitin g Active Active Problems No known active problems Family History Medical History Relation Name Comments Cancer - Skin, Melanoma Brother Other Father vascular diseas e Relation Name Status Comments Brother Father Mother Alive Sister Social History Tobacco Use Types Packs/Day Years Used Date Smoking Tobacco: Former Cigarettes Q uit: 07/30/1997 Smokeless Tobacco: Never Alcohol Use Standard Drinks/Week Comments No 0 (1 standard drink = 0.6 oz pur e alcohol) Comments Unknown Sex and Gender Information Value Date Recorded Sex Assigned at Not on file Legal Sex Female 5:56 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 Gender Identity Not on file Sexual Orientation Not on file Last Filed Vital Signs Vital Sign Reading Time Taken Comments Blood Pressure - - Pulse - - Temperature - - Respiratory Rate - - Oxygen Saturation - - Inhaled Oxygen Concentration - - Weight 65.5 kg (144 lb 8 oz) 02/03/2021 1:07 PM CDT Height 157.5 cm (5' 2) 02/03/2021 1:07 PM CDT Body Mass Index 26.43 02/03/2021 1:07 PM CDT Plan of Treatment Health Maintenance Due Date Last Done Comments BONE DENSITY TESTING 1953 COLOGUARD (AGES 45-75) - COL ON CA SCREENING 1953 CT COLONOGRAPHY - COLON CA SCREENING 1955 FIT - COLON CA SCREENING 1953 FLEX SIG - COLON CA SCREENING 1953 LIPID TESTING 1955 MAMMOGRAM 1955 MEDICARE AWV 12 MONTHS 1953 HEPATITIS C SCREENING 05/17/1971 DTAP/TDAP/TD VACCINES (1 - Tdap) 1972 PNEUMOCOCCAL VACCINE 50+ (1 of 2 - PCV) 1972 HEPATITIS B VACCINE (1 of 3 - Risk Dialysis 4-dose series) 1973 ZOSTER VACCINE (1 of 2) 2003 Respiratory Syncytial Virus (RSV) Vaccine Pt: or over 60 yrs (1 - Risk 60-74 years 1-dose series) 2013 SCREENING FOR DIABETES 02/03/2021 DEPRESSION SCREENING 07/30/2024 COVID-19 VACCINE (1 - 2023-2 5 season) 2025 INFLUENZA VACCINE (#1) 2025 COLON MONITORING 07/16/2028 07/16/2018 COLONOSCOPY - COLON CA SCREENING 07/16/2028 07/16/20 18 Colorectal Cancer Screening 07/16/2028 HIB VACCINE Aged Out No longer eligi ble based on patient's age to complete this topic HPV VACCINE Aged Out No longer eligi ble based on patient's age to complete this topic MENINGOCOCCAL (Group B) VACC INE SHARED DECISION-MAKING Aged Out No longer eligibl e based on patient's age to complete this topic MENINGOCOCCAL GROUPS A/C/Y/W VACCINE Aged Out No longer eligible b ased on patient's age to complete this topic Insurance MEDICARE [place] [id number] Care Teams Used Car Lot Attendant Relationship Specialty Start Date End Date Radha Murphy MD [address] [place] [id number] PCP - General Family Medicine 02/03/21 Radha Murphy MD [address] [id number] [facility] 11/27/24
--- OUTSIDE RECORDS SUMMARY | 2025-05-29 16:11 | XMS_ITS | Encounter Summary ---
Author Organization [facility] Address [address] [place] [address] Phone Care Team Providers Care Public Relations Sales Marketing Name Role Phone Yoanna Dove MD PhD Unavailable [phone] Jair Waterman MD Unavailable Unknown, Notinfile Primary Care Provider Unavail able Serina Pedroza MD Unavailable [phone] Encounter Details Date Type Department Care Team (Late st Contact Info) Description 05/26/2025 Orders Only [facility] Medicine Oncology [address] [facility] [address] [place] [address] Jair Waterman MD [address] [facility] [address] [place] [address] Social History Tobacco Use Types Packs/Day Years Used Date Smoking Tobacco: Former Cigarettes 2 28 1 970 - 1997 Smokeless Tobacco: Never Alcohol Use Standard Drinks/Week Comments Never 0 (1 standard drink = 0.6 oz pur e alcohol) [facility] Utilities Answer Date Recorded In the past 12 months has e electric, gas, oil, or water company threatened to shut off services in your home? Patient unable to answer 01/13/2025 Social Connection and Isolation Panel Answer Date Recorded In a typical week, how many times do you talk on the phone with family, friends, or neighbors? Patient unable to answer 01/13/2025 How often do you get togethe r with friends or relatives? Patient unable to answer 01/13/2025 How often do you attend chur or cheondoism services? Patient unable to answer 01/13/2025 Do you belong to any clubs o r organizations such as mormonism groups, unions, fraternal or athletic groups, or school groups? Patient unable to answer 01/13/2025 How often do you attend meet ings of the clubs or organizations you belong to? Patient unable to answer 01/13/2025 Are you , , di vorced, , never , or living with a partner? Patient unable to answer 01/13/2025 Overall Financial Resource Strain (CARDIA) Answe r Date Recorded How hard is it for you to pa y for the very basics like food, housing, medical care, and heating? Patient unable to answer 01/13/2025 Hunger Vital Sign Answer Date Recorded Within the past 12 months, y ou worried that your food would run out before you got the money to buy more. Patient unable to answer 01/13/2025 Within the past 12 months, t he food you bought just didn't last and you didn't have money to get more. Patient unable to answer 01/13/2025 PRAPARE - Transportation Answer Date Re corded In the past 12 months, has l ack of transportation kept you from medical appointments or from getting medications? Patient unable to answer 01/13/2025 In the past 12 months, has l ack of transportation kept you from meetings, work, or from getting things needed for daily living? Patient unable to answer 01/13/2025 Housing Stability Vital Sign Answer John e Recorded In the last 12 months, was t here a time when you were not able to pay the mortgage or rent on time? Patient unable to answer 01/13/2025 In the past 12 months, how m any times have you moved where you were living? 0 01/13/2025 At any time in the past 12 m [facility], were you homeless or living in a longterm (including now)? Patient unable to answer 01/13/2025 AUDIT-C Answer Date Recorded Q1: How often do you have a drink containing alcohol? Never 03/11/2025 Q2: How many drinks containi ng alcohol do you have on a typical day when you are drinking? Patient does not drink Q3: How often do you have si x or more drinks on one occasion? Never 03/11/2025 Personal Safety Answer Date Recorded Have you ever been in or are you currently in a harmful physical or emotional relationship or is someone making you feel afraid or unsafe? 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 Gender Identity Not on file Sexual Orientation Not on file Occupation Industry Job Start Date Job End Date disability Not on file Not on file Not on file documented as of this encounter Plan of Treatment Not on file documented as of this encounter Visit Diagnoses Not on filedocumented in this encounter Care Teams Public Relations Sales Marketing Relationship Specialty Start Date End Date Unknown, Notinfile PCP - General 06/12/24 Yoanna Dove MD PhD Surgeon Vascular Surgery 12/09/18 Jair Waterman MD [address] [place] [address] Consulting Physician Medical Oncology 05/29/24 Serina Pedroza MD [address] [facility] [address] [place] [address] Radiation Oncologist Radiation Oncology 07/14/24 documented as of this encounter
--- OUTSIDE RECORDS SUMMARY | 2025-05-29 16:11 | XMS_ITS | Encounter Summary ---
Author Organization [facility] Health Address [address] [place] [address] Care Team Providers Care Hospital Receptionist Name Role Phone Radha Murphy MD Primary Care Provider Swapnil Dill MD Unavailable Unavailable Radha Murphy MD Unavailable Swapnil Dill MD Unavailable Unavailable Radha Murphy MD Unavailable Encounter Details Date Type Department Care Team (Late st Contact Info) Description 01/10/2018 [facility] Outpatient Visit [facility] [address] [place] [address] [place] [address] [place] [id number] Social History Tobacco Use Types Packs/Day Years Used Date Smoking Tobacco: Former Cigarettes Q uit: 07/30/1997 Smokeless Tobacco: Never Alcohol Use Standard Drinks/Week Comments No 0 (1 standard drink = 0.6 oz pur e alcohol) Comments Unknown Sex and Gender Information Value Date Recorded Sex Assigned at Not on file 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 [id number] PCP - General Family Medicine 02/03/21 Swapnil Dill MD PCP - [facility] 03/06/22 05/08/22 Radha Murphy MD [address] [place] [address] PCP - [facility] 05/09/22 05/29/23 Swapnil Dill MD PCP - [facility] 05/30/23 11/26/24 Radha Murphy MD [address] [place] [address] PCP - [facility] 11/27/24 documented as of this encounter
--- OUTSIDE RECORDS SUMMARY | 2025-05-29 16:11 | XMS_ITS | Encounter Summary ---
Author Organization [facility] Address [address] [place] [address] Phone Care Team Providers Care Negotiator Sales Name Role Phone Yoanna Dove MD PhD Unavailable [phone] Jair Waterman MD Unavailable [phone] Unknown, Notinfile Primary Care Provider Unavail able Serina Pedroza MD Unavailable [phone] Encounter Details Date Type Department Care Team (Late st Contact Info) Description 05/26/2025 Telephone [facility] Medicine Oncology [address] [facility] [address] [place] [address] Jair Waterman MD [address] [facility] [address] [place] [address] Social History Tobacco Use Types Packs/Day Years Used Date Smoking Tobacco: Former Cigarettes 2 28 1 970 - 1997 Smokeless Tobacco: Never Alcohol Use Standard Drinks/Week Comments Never 0 (1 standard drink = 0.6 oz pur e alcohol) [facility] Utilities Answer Date Recorded In the [...] 01/13/2025 How often do you attend chur ch or yazidism services? Patient unable to answer 01/13/2025 Do you belong to any clubs o r organizations such as episcopalian groups, unions, fraternal or athletic groups, or [...] any time in the past 12 m [facility], were you homeless or living in a prison (including now)? 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 ----- Message from Lara Schulz sent at 05/26/2025 1:14 PM CDT ----- Pt needs refill on her shots used the last one the other day documented in this encounter Plan of Treatment Not on file documented as of this encounter Visit Diagnoses Not on filedocumented in this encounter Care Teams Negotiator Sales Relationship Specialty Start Date End Date Unknown, Notinfile PCP - General 06/12/24 Yoanna Dove MD PhD Surgeon Vascular Surgery 12/09/18 Jair Waterman MD [address] [place] [address] Consulting Physician Medical Oncology 05/29/24 Serina Pedroza MD [address] [facility] [address] [place] [address] Radiation Oncologist Radiation Oncology 07/14/24 documented as of this encounter
--- OUTSIDE RECORDS SUMMARY | 2025-05-29 16:11 | XMS_ITS | Encounter Summary ---
Author Organization [facility] Address [address] [place] [address] Phone Care Team Providers Care Set Up Inspector Name Role Phone Yoanna Dove MD PhD Unavailable [phone] aJir Waterman MD Unavailable Unknown, Notinfile Primary Care Provider Unavail able Serina Pedroza MD Unavailable [phone] Encounter Details Date Type Department Care Team (Late st Contact Info) Description 05/28/2025 Telephone [facility] Medicine Oncology [address] [facility] [address] [place] [address] Jair Waterman MD [address] [facility] [address] [place] [address] Social History Tobacco Use Types Packs/Day Years Used Date Smoking Tobacco: Former Cigarettes 2 28 1 970 - 1997 Smokeless Tobacco: Never Alcohol Use Standard Drinks/Week Comments Never 0 (1 standard drink = 0.6 oz pur e alcohol) [facility] Utilities Answer Date Recorded In the [...] often do you attend chur ch or jehovah's witness services? Patient unable to answer 01/13/2025 Do you belong to any clubs o r organizations such as cheondoism groups, unions, fraternal or athletic groups, or [...] any time in the past 12 m [facility], were you homeless or living in a senior care (including now)? 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 Patient let me know she has not been feeling well, and has been implementing the diet provided by the [employer] administrator, but has not been doing well with the diet. She has reported having stomach cramping around belly button area, and sometimes gurgling across grown area. Patient reports when she eats, she gets nausea and vomits up the food and is feeling unable to eat; feeling weak; no fevers or chills; does feel like her heart is racing and SOB when ambulating. [facility] in [place], [facility] would be closest if needs to go to ER for evaluation; but her daughter is on way and will have her call me. Do patric Guajardo [phone], patient's daughter called back and said the symptoms started yesterday and she was concerned; and continue to get worse. called and said it started yesterday and getting worse. Discussed with Ruchi to take her Mom to the emergency room and they agreed would go to the closest one, [facility] in [place], [place]: I called report to their ER, spoke with Corrine; she will obtain medical records from [facility] but asked if I could fax the last office note with Dr. Randhawa FAX [phone]. Updated Dr. Waterman. documented in this encounter Plan of Treatment Not on file documented as of this encounter Visit Diagnoses Not on filedocumented in this encounter Care Teams Set Up Inspector Relationship Specialty Start Date End Date Unknown, Notinfile PCP - General 06/12/24 Yoanna Dove MD PhD Surgeon Vascular Surgery 12/09/18 Jair Waterman MD [address] [place] [address] Consulting Physician Medical Oncology 05/29/24 Serina Pedroza MD [address] [facility] [address] [place] [address] Radiation Oncologist Radiation Oncology 07/14/24 documented as of this encounter
--- OUTSIDE RECORDS SUMMARY | 2025-05-29 16:11 | XMS_ITS | Encounter Summary ---
Author Organization [facility] Address [address] [place] [address] Phone Care Team Providers Care Account Executive Agribusiness Name Role Phone Yoanna Dove MD PhD Unavailable [phone] Jair Waterman MD Unavailable [phone] Unknown, Notinfile Primary Care Provider Unavail able Serina Pedroza MD Unavailable [phone] Encounter Details Date Type Department Care Team (Late st Contact Info) Description 05/27/2025 Orders Only [facility] Medicine Oncology [address] [facility] [address] [place] [address] Jair Waterman MD [address] [facility] [address] [place] [address] Neuroendocrine carcinoma of small bowel (HCC); Diarrhea, unspecified type Social History Tobacco Use Types Packs/Day Years Used Date Smoking Tobacco: Former Cigarettes 2 28 1 970 - 1997 Smokeless Tobacco: Never Alcohol Use Standard Drinks/Week Comments Never 0 (1 standard drink = 0.6 oz pur e alcohol) [facility] Utilities Answer Date Recorded In the past 12 months has [employer], gas, oil, or water company threatened to [...] often do you attend chur ch or religion services? Patient unable to answer 01/13/2025 Do you belong to any clubs o r organizations such as gnosticism groups, unions, fraternal or athletic groups, or [...] any time in the past 12 m [facility], were you homeless or living in a [facility] (including now)? 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 Gender Identity Not on file Sexual Orientation Not on file Occupation Industry Job Start Date Job End Date disability Not on file Not on file Not on file documented as of this encounter Ordered Prescriptions Prescription Sig Dispense Quantity Refills Last Filled Start Date End Date octreotide (SandoSTATIN) 100 mcg/mL injectionIndicatio ns:Neuroendocrine carcinoma of small bowel (HCC),Diarrhea, unspecified type Inject 1 mL (100 mcg total) under the skin 3 (three) times a day as needed (Diarrhea) 9 mL 05/27/2025 syringe with needle 1 mL 28 gauge x 1/2 syringeIndications :Neuroendocrine carcinoma of small bowel (HCC),Diarrhea, unspecified type 1 Syringe 3 (three) times a day as needed (Syringes to use for pre-filled short acting Octreotide) 9 each 05/27/2025 documented in this encounter Plan of Treatment Not on file documented as of this encounter Visit Diagnoses Diagnosis Neuroendocrine carcinoma of small bowel (HCC) Diarrhea, unspecified type documented in this encounter Discontinued Medications Medication Sig Discontinue Reason Start Date End Da te syringe with needle 1 mL 28 gauge x 1/2 syringeIndications:Ne uroendocrine carcinoma of small bowel (HCC),Diarrhea, unspecified type 1 Syringe 3 (three) times a day as needed (Syringes to use for pre-filled short acting Octreotide) Reorder 06/10/2024 05/27/2025 octreotide (SandoSTATIN) 100 mcg/mL injectionIndications: Neuroendocrine carcinoma of small bowel (HCC),Diarrhea, unspecified type INJECT 1 ML SUBCUTANEOUSLY 3 TIMES DAILY NEEDED FOR DIARRHEA Reorder 04/15/2025 05/27/2025 documented as of this encounter Care Teams Account Executive Agribusiness Relationship Specialty Start Date End Date Unknown, Notinfile PCP - General 06/12/24 Yoanna Dove MD PhD Surgeon Vascular Surgery 12/09/18 Jair Waterman MD [address] [facility] [address] [place] [address] Consulting Physician Medical Oncology 05/29/24 Serina Pedroza MD [address] [facility] [address] [place] [address] Radiation Oncologist Radiation Oncology 07/14/24 documented as of this encounter
--- OUTSIDE RECORDS SUMMARY | 2025-05-29 16:12 | XMS_ITS | Data Portability ---
Author Organization [facility], Main Office Address [address] [place] [address] Assessment Encounter Date Assessment Date Assessment LastModified by Organization Details LastModified Time 07/19/2023 07/19/2023 I have reconciled the patient's medications post their discharge from inpatient facility. [email or web address] Not available 07/19/2023 14:25:43 Plan of Treatment Reminders Order Date Submit Date Provider Last Modified By Organization Details Last Modified Time Details Appointments None recorded. 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 Please call patient to schedule appointment . Thank you 2022 023 [email or web address] [facility], [address] [place], [address], 4 16:17:17 Procedures None recorded. Surgeries None recorded. Imaging DEXA 2023 [email or web address] [place] [address] (Imaging), [address] [place] [address], [place], [address], 4 08:44:41 Medication Orders clonazepam 0.5 mg tablet 2023 024 [facility], [address] [facility], [place], [address], 4 15:17:06 Patient TargetsNo targets recorded. Patient Instructions Encounter Date Encounter Id Patient Instructions Last Modified By Organization Details Last Modified Time 07/19/2023 [id number] Thank you for yo ur visit to our office today. We would like to request that you reach out to your referring or previous provider and request that they send us a Summary of Care in electronic form, so that we may have it on file in your medical record. At your visit, we had the medical records we needed to provide you with the best possible care; however, for insurance purposes, an electronic Summary of Care is beneficial. Thank you for your assistance in obtaining this information and we look forward to providing continued care to you. Please review your medication list from the Summary of Care for this visit. If there are any differences from what you are currently taking at home, please call us to discuss. [email or web address] Not available 07/19/2023 14:25:43 Homebound Status : Required Home Health Services: Durable Medical Equipment needed: Billing Guidelines CPT code 74098- Transitional Care Management services with moderate medical decision complexity (igpo-wf-injc visit within 14 days of discharge). CPT code 73636- Transitional Care Management services with high medical decision complexity (qcti-za-rfva visit within 7 days of discharge). [email or web address] Not available 07/19/2023 14:25:43 10/16/2023 [id number] Personalized a lt Plan and Screening Recommendations Advance Directives - Do you have one? Advance Directives - Do we have your advance directive on file in your health record? Primary Prevention/Interven tion (prevents or decreases the chance of common diseases from occurring) Smoking Risk: Alcohol Misuse Screening: Weight: Physical activity: Nutrition: Fall Risk (screened today): Vaccines Pneumococcal: Influenza: Your next one in the fall of this year Chronic Disease Risks Stroke: Active diagnosis, Continue current treatment plan Heart Attack: Active diagnosis, Continue current treatment plan Clogging of the Arteries: Active diagnosis, Continue current treatment plan Diabetes: Active diagnosis, Continue current treatment plan Secondary Prevention/Interven tion (detects treatable diseases before they may cause symptoms, disability, or ) Breast Cancer Screening with mammogram: Cervical/Uterine/Ov alon Cancer Screening: Osteoporosis Screening: Date Screening Last Performed: Colon Cancer Screening: Date Screening Last Performed: Eye Disease Screening: Your next exam in: Dementia Risk: Depression Screening: Active diagnosis, Continue current treatment plan [email or web address] Not available 10/25/2023 21:04:38 Reason for Referral suspected mesenteric carcino id tumor. Please call patient to schedule appointment. Thank you Referring Physician: Radha Murphy, Family Medicine, Encounter Date: 07/19/2023 Results Created Date Observation Date Name Description Value Unit Range Abnormal Flag Note LastModifiedBy Organization Detail LastModifiedTime 06/29/20 23 06/29/2023 CT, abdom en + pelvi s, w/o contr ast No observ ation record ed. [address], [address], 07/18/2023 09:54:58 06/30/20 23 06/30/2023 XR, abdom en No observ ation record ed. [email or web address] [address], [address], 12/07/2023 16:44:45 06/30/20 23 06/30/2023 XR, abdom en No observ ation record ed. [address], [address], 07/18/2023 10:01:01 07/02/20 23 07/01/2023 RF, small bowel follo w-thr ough study No observ ation record ed. [email or web address] [address], [address], 07/18/2023 09:54:34 Result Notes None recorded. Problems Name Problem SNOMED Code Status Onset Date Resolution Date Notes Provider Name and Address Organization Details Recorded Time Hemoglobin below reference range 053297771 Active Not Available [facility] 3 00:46:51 Hematocrit - borderline low 441236714 Active low Not Available [facility] 3 00:46:51 Abdominal aortic aneurysm 804701237 Active Not Available [facility] 3 00:46:51 Peripheral vascular disease 024923255 Active Not Available [facility] 3 00:46:51 Essential hypertension 33904444 Active Not Available [facility] 3 00:46:51 Spinal stenosis 72769063 Active Not Available [facility] 3 00:46:52 Anxiety 04002563 Active 2022 LESLIE Doshi [address], [place], [address] , [facility] 3 11:19:10 Hypothyroidis m 63860219 Active 2022 Radha Murphy MD [address], [place], [address] , [facility] 3 12:46:39 Insomnia 124107306 Active 2022 Radha Murphy MD [address], [place], [address] , [facility] 3 13:09:15 Carcinoid tumor 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 Procedures Surgical History Date Name Laterality Status Provider Name and Address Organization Details Recorded Time 4 Medicare Wellness CPT Code, subsequent completed RUY [facility] 10/16/2023 14:44:56 3 Transitional_Ca re_Management completed RUY [facility] [facility] 07/19/2023 14:25:43 Imaging Results None recorded. Procedure Notes None recorded. Medical Equipment None Reported. Allergies Allergen ID Allergen Name Allergen Category Reaction Reaction Severity Criticality Documentation Date Start Date Code Code System Note Provider Name and Address Organization Details Recorded Time 355 nitrofura ntoin medicatio n other Not available Not available 09/27/2022 7454 RxNorm Not Available [facility] 3 00:51:17 356 Iodinated contrast media (substanc e) medicatio n Not available Not available Not available 09/27/2022 66758 2004 SNOMED IV dye Not Available [facility] 3 00:51:17 357 fentanyl medicatio n respirato ry distress Not available Not available 09/27/2022 4337 RxNorm Not Available [facility] 3 00:51:17 358 ciproflox acin medicatio n Not available Not available Not available 09/27/2022 2551 RxNorm Not Available [facility] 3 00:51:17 Medications Name Sig Start Date Stop Date Status Note LastModified by Organization Details LastModified Time losartan 50 mg tablet Take 1 tablet every day by oral route for 90 days. 02/07 completed Not Available Not Available Not Available nifedipin e ER 30 mg tablet,ex tended release 24 hr TAKE 1 TABLET BY MOUTH ONCE DAILY 09/30 completed Not Available Not Available Not Available amoxicill in 500 mg capsule TAKE 1 CAPSULE BY MOUTH TWICE DAILY 01/25 completed Not Available Not Available Not Available furosemid e 40 mg tablet TAKE 1 TABLET BY MOUTH TWICE DAILY active Not Available Not Available No t Available nystatin 100,000 unit/mL oral suspensio n SWISH AND SWALLOW 5 MILLILIT ERS BY MOUTH THREE TIMES DAILY FOR 14 DAYS 02/07 completed Not Available Not Available Not Available clonidine HCl 0.1 mg tablet TAKE 1 TABLET BY MOUTH TWICE DAILY HOLD OF BP 140 90 12/15 completed Not Available Not Available Not Available carvedilo l 6.25 mg tablet Take 1 tablet twice a day by oral route with meals for 90 days. active Not Available Not Available No t Available gabapenti n 600 mg tablet TAKE 1 TABLET BY MOUTH 4 TIMES DAILY 02/07 completed Not Available Not Available Not Available cefuroxim e axetil 250 mg tablet 02/07 completed Not Available Not Available Not Available diphenhyd ramine 50 mg capsule TAKE ONE CAPSULE BY MOUTH MORNING OF PROCEDUR E 02/13 completed Not Available Not Available Not Available Epogen 10,000 unit/mL injection solution Take by injectio n route. 2021 active Not Available Not Available Not Avai lable polyethyl jesus glycol 3350 17 gram oral powder packet 12/15 completed Not Available Not Available Not Available azithromy aislinn 250 mg tablet 02/13 completed Not Available Not Available Not Available aspirin 325 mg tablet Take 1 tablet every day by oral route. 09/30 completed Not Available Not Available Not Available pravastat in 40 mg tablet Take 1 tablet every day by oral route for 90 days. 01/11 completed Not Available Not Available Not Available fluconazo le 150 mg tablet TAKE 1 TABLET BY MOUTH ONCE DAILY FOR 1 DAY 12/15 completed Not Available Not Available Not Available benzonata te 200 mg capsule TAKE 1 CAPSULE BY MOUTH THREE TIMES DAILY FOR COUGH 10/15 completed Not Available Not Available Not Available sulfameth oxazole 400 mg-trimet hoprim 80 mg tablet TAKE 1 TABLET BY MOUTH TWICE DAILY FOR 7 DAYS 10/15 completed Not Available Not Available Not Available phenazopy ridine 200 mg tablet Take 1 tablet 3 times a day by oral route as needed for 2 days. active Not Available Not Available No t Available lisinopri l 20 mg tablet Take 1 tablet twice a day by oral route for 90 days. 07/16 completed Not Available Not Available Not Available ondansetr on HCl 4 mg tablet TAKE 1 TABLET BY MOUTH THREE TIMES DAILY NEEDED FOR 10 DAYS 02/07 completed Not Available Not Available Not Available prednison e 20 mg tablet TAKE 2 TABLETS BY MOUTH ONCE DAILY FOR 5 DAYS active Not Available Not Available No t Available clonazepa m 0.5 mg tablet TAKE 1 TABLET BY MOUTH TWICE DAILY NEEDED active Not Available Not Available No t Available clonazepa m 1 mg tablet TAKE 1 TABLET BY MOUTH ONCE DAILY NEEDED 10/15 completed Not Available Not Available Not Available hydralazi ne 25 mg tablet TAKE 1 TABLET BY MOUTH TWICE DAILY active Not Available Not Available No t Available clopidogr el 75 mg tablet Take 1 tablet every day by oral route for 90 days. 07/24 completed Not Available Not Available Not Available ciproflox acin 250 mg tablet Take 1 tablet every 12 hours by oral route for 7 days. active Not Available Not Available No t Available sulfameth oxazole 800 mg-trimet hoprim 160 mg tablet TAKE 1 TABLET qday x 7 days active Not Available Not Available No t Available aspirin 81 mg tablet,de layed release Take 1 tablet every day by oral route. 02/07 completed Not Available Not Available Not Available spironola ctone 25 mg tablet Take 1 tablet every day by oral route for 90 days. 01/11 completed Not Available Not Available Not Available famotidin e 20 mg tablet TAKE 1 TABLET BY MOUTH AT BEDTIME THEN 1 TABLET MORNING OF PROCEDUR E 09/30 completed Not Available Not Available Not Available magnesium oxide 400 mg (241.3 mg magnesium ) tablet TAKE 1 TABLET BY MOUTH TWICE A DAY 05/26 completed Not Available Not Available Not Available sodium bicarbona te 650 mg tablet TAKE 1 TABLET BY MOUTH TWICE DAILY active Not Available Not Available No t Available phenazopy ridine 100 mg tablet TAKE 1 TABLET BY MOUTH THREE TIMES DAILY NEEDED FOR URINARY PAIN 02/07 completed Not Available Not Available Not Available amlodipin e 10 mg tablet TAKE 1 TABLET BY MOUTH ONCE DAILY active Not Available Not Available No t Available cephalexi n 500 mg capsule TAKE 1 CAPSULE BY MOUTH TWICE DAILY FOR 7 DAYS 10/15 completed Not Available Not Available Not Available pantopraz ole 40 mg tablet,de layed release TAKE 1 TABLET BY MOUTH TWICE DAILY 01/11 completed Not Available Not Available Not Available prednison e 50 mg tablet TAKE 1 TAB BY MOUTH EVENING BEFORE WITH DINNER 1 TAB AT BEDTIME 1 TAB IN THE MORNING OF PROCEDUR E 07/16 completed Not Available Not Available Not Available losartan 25 mg tablet TAKE 1 TABLET BY MOUTH ONCE DAILY EXCEPT SUNDAY AND SUNDAY active Not Available Not Available No t Available gabapenti n 300 mg capsule TAKE 1 CAPSULE BY MOUTH ONCE DAILY active Not Available Not Available No t Available codeine 10 mg-guaife nesin 100 mg/5 mL oral liquid 02/13 completed Not Available Not Available Not Available hydralazi ne 50 mg tablet TAKE 1 & 1/2 (ONE & ONE HALF) TABLETS BY MOUTH THREE TIMES DAILY 02/07 completed Not Available Not Available Not Available hydrochlo rothiazid e 25 mg tablet TAKE 1 TABLET BY MOUTH ONCE DAILY active Not Available Not Available No t Available mirtazapi ne 15 mg tablet TAKE 1 TABLET BY MOUTH EVERY DAY AT BEDTIME 02/07 completed Not Available Not Available Not Available metoprolo l succinate ER 25 mg tablet,ex tended release 24 hr TAKE 1 TABLET BY MOUTH ONCE DAILY active Not Available Not Available No t Available diazepam 10 mg tablet 02/13 completed Not Available Not Available Not Available Ecotrin 325 mg tablet,en teric coated Take 1 tablet every day by oral route. 09/30 completed Not Available Not Available Not Available zolpidem 10 mg tablet Take 1 tablet as needed by oral route at bedtime for 30 days. 05/26 completed Not Available Not Available Not Available celecoxib 100 mg capsule 07/24 completed Not Available Not Available Not Available oxybutyni n chloride 5 mg tablet 09/30 completed Not Available Not Available Not Available nifedipin e ER 60 mg tablet,ex tended release Take 1 tablet every day by oral route for 90 days. active Not Available Not Available No t Available lisinopri l 40 mg tablet TAKE A 1/2 TABLET BY MOUTH TWICE A DAY 07/24 completed Not Available Not Available Not Available ondansetr on 4 mg disintegr ating tablet DISSOLVE 1 TABLET IN MOUTH EVERY 6 HOURS NEEDED FOR NAUSEA AND VOMITING 10/15 completed Not Available Not Available Not Available losartan 100 mg tablet Take 1 tablet every day by oral route for 90 days. active Not Available Not Available No t Available amoxicill in 500 mg-potass ium clavulana te 125 mg tablet TAKE 1 TABLET BY MOUTH ONCE DAILY ON HEMO DAYS 10/15 completed Not Available Not Available Not Available oxycodone 5 mg tablet 05/29 completed Not Available Not Available Not Available enoxapari n 80 mg/0.8 mL subcutane ous syringe 05/29 completed Not Available Not Available Not Available escitalop bella 10 mg tablet TAKE 1 TABLET BY MOUTH EVERY DAY AT BEDTIME 02/07 completed Not Available Not Available Not Available ezetimibe 10 mg tablet TAKE 1 TABLET EVERY DAY active Not Available Not Available No t Available nitrofura ntoin monohydra te/macroc rystals 100 mg capsule Take 1 capsule every 12 hours by oral route for 7 days. 07/24 completed Not Available Not Available Not Available Flovent HFA 220 mcg/actua tion aerosol inhaler INHALE ONE PUFF BY MOUTH TWICE DAILY 05/26 completed Not Available Not Available Not Available Vitamin C 01/11 completed dialysis Not Available Not Available Not Available Fish Oil 09/30 completed Not Available Not Available Not Available iron 09/30 completed Not Available Not Available Not Available Stool Softener 2017 active Not Available Not Available Not Avai lable Vitamin D3 2017 active Not Available Not Available Not Avai lable Miralax prn 2021 active Not Available Not Available Not Avai lable FeroSul 325 mg (65 mg iron) tablet TAKE 1 TABLET BY MOUTH TWICE DAILY 12/15 completed Not Available Not Available Not Available sevelamer carbonate 800 mg tablet TAKE 1 TABLET BY MOUTH WITH MEALS THREE TIMES DAILY 02/07 completed Not Available Not Available Not Available Triphroca ps 1 mg capsule TAKE 1 CAPSULE BY MOUTH ONCE DAILY 02/07 completed Not Available Not Available Not Available PRODUCTION PROOFREADER Thyroid 60 mg tablet TAKE 1 TABLET BY MOUTH ONCE DAILY 02/07 completed Not Available Not Available Not Available Eliquis 5 mg tablet Take 1 tablet twice a day by oral route. active Not Available Not Available No t Available B6 100 mg-FA 800 mcg-B12 200 mcg-co Q10 100 mg-herbal no.225 tablet Take by oral route. 02/07 completed Not Available Not Available Not Available Vitamin B12 02/07 completed Not Available Not Available Not Available Repatha SureClick 140 mg/mL subcutane ous pen injector 09/30 completed Not Available Not Available Not Available Vitals Date Recorded Body height Body mass index (BMI) Body weight Heart rate Oxygen saturation Oxygen saturation in Arterial blood by Pulse oximetry Body temperature Systolic And Diastolic Provider Name and Address Organization Details Last Updated DateTime 4 157.48 cm 24.7 kg/m2 31025.9 7 g 64 /min 97 % 97 % 98.2 [degF] 142/72 mm[Hg] Isabel Hendrickson RN [facility] 4 14:47:12 Date Recorded Body height Body mass index (BMI) Body weight Provider Name and Address Organization Details Last Updated DateTime 11/23/2022 157.48 cm 25.8 kg/m2 02071.52 g Kristen Zhao, QUALITY AUDIT REPRESENTATIVE [facility] Lysanda [facility] 11/23/2022 08:48:54 Date Recorded Body height Body mass index (BMI) Body weight Body temperature Heart rate Oxygen saturation Oxygen saturation in Arterial blood by Pulse oximetry Systolic And Diastolic Provider Name and Address Organization Details Last Updated DateTime 3 157.48 cm 26.2 kg/m2 45015.7 1 g 97.2 [degF] 55 /min 97 % 97 % 140/72 mm[Hg] Isabel Hendrickson RN [facility] Lysanda [facility] 3 12:26:49 Date Recorded Body mass index (BMI) Body height Oxygen saturation Oxygen saturation in Arterial blood by Pulse oximetry Heart rate Body temperature Body weight Systolic And Diastolic Provider Name and Address Organization Details Last Updated DateTime 2 25.1 kg/m2 157.48 cm 98 % 98 % 56 /min 98.4 [degF] 23111.1 5 g 117/60 mm[Hg] Not Available [facility] 3 00:46:10 Date Recorded Body height Body mass index (BMI) Body weight Body temperature Heart rate Oxygen saturation Oxygen saturation in Arterial blood by Pulse oximetry Systolic And Diastolic Provider Name and Address Organization Details Last Updated DateTime 3 157.48 cm 24.3 kg/m2 50868.7 9 g 97.8 [degF] 57 /min 97 % 97 % 164/72 mm[Hg] Isabel Hendrickson RN [facility] Lysanda [facility] 3 14:28:29 Social History Question Answer Notes LastModified by Organizat ion Details LastModified Time Tobacco Smoking Status Never Smoker Not Available [facility] 09/27/2022 00:42:11 Are You Blind Or Do You Have Difficulty Seeing? Yes Eyeglasses [id number] Information not available 09/27/2022 What Is Your Level Of Caffeine Consumption? Occasional MIGRATION.23861 [id number] Information not available 09/27/2022 How Much Tobacco Do You Chew? None MIGRATION.88522 [id number] Information not available 09/27/2022 What Is Your Code Status? Full Code MIGRATION. Information not available 09/27/2022 In The 14 Days Before Symptom Onset, Have You Had Close Contact With A Laboratory-confi rmed COVID-19 While That Case Was Ill? No [id number].[id number] Information not available 09/27/2022 In The 14 Days Before Symptom Onset, Have You Had Close Contact With A Person Who Is Under Investigation For COVID-19 While That Person Was Ill? No MIGRATION.44007 [id number] Information not available 09/27/2022 Are You Deaf Or Do You Have Serious Difficulty Hearing? No MIGRATION.36160 55020 Information not available 09/27/2022 What Type Of Diet Are You Following? REGULAR MIGRATION.57782 87204 Information not available 09/27/2022 Which Illicit Or Recreational Drugs Have You Used? No MIGRATION.81438 [id number] Information not available 09/27/2022 Are There Any Guns Present In Your Home? No MIGRATION.12078 06585 Information not available 09/27/2022 Do You Use Insect Repellent Routinely? No N/A MIGRATION.51359 08521 Information not available 09/27/2022 What Was The Date Of Your Most Recent Tobacco Screening? 10/16/2023 [email or web address] Information not available 10/16/2023 Do You Have Smoke And Carbon Monoxide Detectors In Your Home? No Not CO Monoxide Detector MIGRATION.59637 33243 Information not available 09/27/2022 How Much Tobacco Do You Smoke? No MIGRATION.87416 99308 Information not available 09/27/2022 Do You Use Sunscreen Routinely? Yes MIGRATION.32393 [id number] Information not available 09/27/2022 Do You Have Difficulty Walking Or Climbing Stairs? Yes Can't Climb Stairs MIGRATION.89035 26201 Information not available 09/27/2022 Sex: Unknown Functional Status Question Answer Note LastModified by Organizat ion Details LastModified Time What is your level of alcohol consumption? None MIGRATION.27628 [id number] Information not available 09/27/2022 Do you or have you ever used smokeless tobacco? Never used smokeless tobacco MIGRATION.84483 49558 Information not available 09/27/2022 Do you have transportation difficulties? No MIGRATION.34420 36765 Information not available 09/27/2022 Are you able to walk independently without assistance or assistive devices? YESASSIST walker if needed MIGRATION.40775 35271 Information not available 09/27/2022 Do you have difficulty doing errands alone? No MIGRATION.61413 05403 Information not available 09/27/2022 Are you able to care for yourself independently? 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 No MIGRATION.32630 90042 Information not available 09/27/2022 Do you or have you ever used e-cigarettes or vape? Never used electronic cigarettes MIGRATION.39067 84107 Information not available 09/27/2022 What is your exercise level? Occasional MIGRATION.70068 27718 Information not available 09/27/2022 Mental Status Question Answer Note LastModified by Organizat ion Details LastModified Time Do you have difficulty concentrating, remembering or making decisions? Yes sometimes MIGRATION.[id number] 026 Information not available 09/27/2022 Family History Relationship Description Onset Age of this Age Resolved Age Notes LastModified by Organization Details LastModified Time Father Heart disease [id number].793 [id number] Not available 09/27/2022 00:42:32 Father Essential hypertension MIGRATION.748 [id number] Not available 09/27/2022 00:42:32 Father Peripheral vascular disease MIGRATION.857 [id number] Not available 09/27/2022 00:42:32 Sister Sister [id number].216 [id number] Not available 09/27/2022 00:42:32 Sister Essential hypertension MIGRATION.119 [id number] Not available 09/27/2022 00:42:33 Sister Diabetes mellitus [id number].018 [id number] Not available 09/27/2022 00:42:33 Brother Malignant neoplastic disease MIGRATION.877 [id number] Not available 09/27/2022 00:42:33 Medical History Condition Response BLINDNESS N RHEUMATIC FEVER N KIDNEY STONES N BLADDER PROBLEMS N MRSA N OTHER # 1 N POLIO N LUNG DISEASE/DISORDER N RADIATION / CHEMOTHERAPY N COPD N Other # 2 N BLOOD DISEASES N SURGERY N EAR OR HEARING PROBLEMS N MUMPS N FEMALE PROBLEMS / INFECTIONS N DEPRESSION (INCLUDING POST ) Y BOWEL PROBLEMS Y STROKE/TIA N THYROID DISEASE N ULCERS N BENIGN PROSTATIC HYPERPLASIA N MEASLES N CERVICALGIA N TB SKIN TEST N MYOCARDIAL INFARCTION N PARAPELGIA N OBESITY N GERD/NAUSEA N ANEURYSM Y URINARY/BLADDER/KIDNEY PROBLEMS N CORONARY ARTERY DISEASE (CAD) N MENIERE'S DISEASE N ADDICTION CONCERNS N ENDOMETRIOSIS N USE OF BLOOD THINNERS N SKIN PROBLEMS N EMPHYSEMA N GASTROINTESTINAL DISORDER N MUSCLE,JOINT OR BONE PROBLEMS N GASTROINTESTINAL BLEEDING N BLOOD CLOTS N ASTHMA N CATARACTS N ERECTILE DYSFUNCTION N GI PROBLEMS N CHF N Low Testosterone N NEUROPATHY N INFERTILITY N AIDS/HIV N FRACTURES N CHEMOTHERAPY / RADIATION N VISION/EYE PROBLEMS N LIVER DISEASE N MALE HYPOGONADISM N HYPERTENSION Y ANXIETY DISORDER Y BLOOD TRANSFUSION N ANEMIA/BLOOD DISORDER Y CHRONIC EAR INFECTIONS N BRONCHITIS N TUBERCULOSIS N GLAUCOMA N FOOT PROBLEM N DIVERTICULITIS N SLEEP APNEA N CHICKENPOX N ALLERGIES/HAYFEVER N INFECTIOUS DISEASE N PROSTATE N HEART ARRHYTHMIA N INSOMNIA N HIGH CHOLESTEROL / HYPERLIPIDEMIA N EYE PROBLEMS N HYPERTHYROIDISM N EATING DISORDER N NEUROLOGICAL PROBLEMS N EDEMA N CHRONIC PAIN SYNDROME N HYPOTHYROIDISM N CAROTID BLOCKAGE Y CONSTIPATION N BACK / NECK PROBLEMS N HAVE YOU BEEN HOSPITALIZED OR SEEN IN [facility] IN THE PAST YEAR ? N ATHEROSCLEROSIS N BREAST PROBLEMS N DIALYSIS N ECZEMA N FIBROMYALGIA N OSTEOPOROSIS N ARTHRITIS Y NO SIGNIFICANT PAST MEDICAL HISTORY N APPENDICITIS N DIABETES, TYPE N BAD TEETH N HEARTBURN / REFLUX N ADD/ADHD N AFIB N AUTISM SPECTRUM DISORDER (ASD) N HEPATITIS / LIVER DISEASE N PULMONARY DISEASE N GOUT N SLEEP DISORDER Y ALZHEIMER'S DISEASE N PAIN N DEMENTIA N HERPES N SEIZURES/EPILEPSY N HEADACHES/MIGRAINES N VASCULAR DISEASE Y PACEMAKER N DIZZINESS N HEART DISEASE/HEART PROBLEMS N KIDNEY DISEASE N SCARLET FEVER N MULTIPLE SCLEROSIS N DEVELOPMENTAL OR BEHAVIORAL DISORDERS N MENTAL DISORDER/ILLNESS N CANCER: SPECIFY N CARDIAC ARRHYTHMIA N PNEUMONIA N ATRIAL FIBRILLATION N Gall Stones N PULMONARY EMBOLISM N AUTOIMMUNE DISEASE N Gynecological History Statement/Question Response Menses Monthly N Date of Last Colonoscopy Breast Problems no Discharge no Obstetrics History GPAL:G 0 P 0 0 0 0 Immunizations Vaccine Type Date Status Note Provider Nam e and Address Organization Details Recorded Time Pneumococcal conjugate PCV 13 2 completed Not Available [facility] 09/27/2022 00:51:10 Influenza, high-dose, quadrivalent, PF 0 completed Not Available [facility] 09/27/2022 00:51:10 Influenza, split virus, quadrivalent, PF 9 completed Tracee Gonzalez, ROTARY BAR OPERATOR [address] [facility], [place] [address], [place], [address], [facility] [employer] [facility] 04/10/2024 09:00:46 pneumococcal polysaccharide PPV23 8 completed Not Available [facility] 09/27/2022 00:51:11 Tdap 8 completed Not Available [facility] 09/27/2022 00:51:11 Influenza, high-dose, trivalent, PF 8 completed Not Available [facility] 09/27/2022 00:51:11 Past Encounters Encounter ID Performer Location Encounter Start Date Encounter Closed Date Diagnosis/Indication Diagnosis SNOMED-CT Code Diagnosis ICD10 Code Diagnosis IMO Codes Diagnosis Note [id number] AGUSTINA Mora [facility] [place] [address] [place] [address] 11/10/2020 00:00:00 11/10/2020 20:12:40 [id number] AGUSTINA Mora [facility] [place] [address] [place] [address] 12/15/2020 00:00:00 12/15/2020 19:53:08 [id number] AGUSTINA Mora [facility] [place] [address] [place] [address] 01/11/2021 00:00:00 01/11/2021 19:42:20 [id number] Radha Murphy MD [facility] Primary [facility] [place] [address] [place] [address] 02/07/2022 00:00:00 02/07/2022 14:34:03 [id number] Radha Murphy MD [facility] [place] [address] [place] [address] 07/05/2022 00:00:00 07/27/2022 10:09:18 [id number] Radha Murphy MD [facility] Primary [facility] [place] [address] [place] [address] 11/23/2022 08:43:56 11/25/2022 03:54:49 [id number] Radha Murphy MD [facility] Primary [facility] [place] [address] [place] [address] 01/25/2023 12:22:33 01/25/2023 13:02:44 Hypothyroidism 95989038 E03.9 doing well off 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 labf/u in 6 months Insomnia 672881539 G47.0 0 ok to take melatonin up to 10 mg qhs [id number] Radha Murphy MD [facility] Primary Care [facility] [address] [facility] [address] [facility] [place] [address] 07/19/2023 14:21:31 07/19/2023 15:05:45 Transition of care 2408931546 105 Z75.8 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[address] scan that has been followed with at least 2 CTs thought to be probable carcinoid tumorrefer ral given [id number] Radha Murphy MD [facility] Primary Care [facility] [address] [facility] [facility] [place] [address] 10/16/2023 14:40:30 10/16/2023 15:18:07 Adult health examination 665028733 Z00.00 Has received pneumovax 23 and prevnar 13 Tdap 2018 Recommend yearly flu vaccine She declines covid booster screen mammogram recommende d, declined for now port a cath in place DEXA normal 2017, repeat 2022 Postmenopausal state 764 57515 Z78.0 Hypothyroidism 61376335 E03.9 doing well off 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 labf/u in 6 months Anxiety 15135489 F41.9 stable, refill given End-stage renal disease 39502060 N18.6 on dialysis Health Concerns Section Related Observation LastModified by Organization Detai ls LastModified Time None Recorded Concern Status LastModified by Organization Details LastModified Time None Recorded Advance Directives Directive None Recorded Payers Insurance Date Sequence Insurance Name Policy Number Policy Morales Covered Member ID Morales Member ID Guarantor Name 10/16/2023 1 [place] Mary Ramirez [id number] Mary Ramirez 10/26/2023 2 [employer] [facility] (MEDICARE SUPPLEMENT) Mary Ramirez [id number] Mary Ramirez Notes Date Note Type Note Provider Name and Address Organization Details Recorded Time 01/25/2023 text/html ROS as noted in the HPI dialysis twice per week not sleeping well, does not want to take a sleeping prescription med Radha Murphy MD [address], [place], [address], [employer] [facility] 01/26/2023 12:25:49 07/19/2023 text/html ROS as noted in the HPI appetite is still downnausea is okshe is drinking okno constipation or diarrheaeating some foodcough is now betterhad labs done at dialysis Radha Murphy MD [address], [place], [address], [employer] 07/26/2023 13:59:39 10/16/2023 text/html ROS as noted in the HPI appetite is still downnausea is okshe is drinking okno constipation or diarrheaeating some foodcough is now betterhad labs done at dialysis update 10/16/23: MWErecently had a bowel obstruction she dealt with at home but it seemed to increase her degenerative disk disease that radiated down left leg. She has to lay a certain way and using biofreeze. Today it is feeling better, close to baseline. Gets dialysis 2x per week, has ESRD Radha Murphy MD [address], [place], [address], [employer] 10/25/2023 21:04:54 OBGyn Episode No OBEpisode recorded.
--- OUTSIDE RECORDS SUMMARY | 2025-05-29 16:12 | XMS_ITS | Encounter Summary ---
Author Organization [facility] Healthcare Address [address] [place] [address] Care Team Providers Care Community Development Coordinator Name Role Phone Radha Murphy MD Primary Care Provider + Yoanna Dove MD PhD Unavailable [phone] Jair Waterman MD Unavailable [phone] Unknown, Notinfile Primary Care Provider Unavail able Serina Pedroza MD Unavailable [phone] Encounter Details Date Type Department Care Team (Late st Contact Info) Description 06/23/2020 Telephone [facility] Radiology [address] [place], [place] [id number] Yoanna Dove MD PhD [address] [place] [address] Social History Tobacco Use Types Packs/Day Years Used Date Smoking Tobacco: Former Cigarettes 2 28 1 970 - 1997 Smokeless Tobacco: Never Alcohol Use Standard Drinks/Week Comments Never 0 (1 standard drink = 0.6 oz pur e alcohol) AUDIT-C Answer Date Recorded Frequency of Alcohol Consumption Never 11/13/2018 Average Number of Drinks Not on file 019 Frequency of Binge Drinking Not on file 10/28 Comments No Sex and Gender Information Value Date Recorded Sex Assigned at Not on file Legal Sex Female 3:32 PM SETTER UP Gender Identity Not on file Sexual Orientation Not on file Occupation Industry Job Start Date Job End Date disability Not on file Not on file Not on file documented as of this encounter Plan of Treatment Not on file documented as of this encounter Visit Diagnoses Not on filedocumented in this encounter Additional Health Concerns Infection Onset Date Last Indicated Resolved Time C. difficile suspected 05/27/2024 05/27/202405/30 9:42 AM CDT documented as of this encounter Care Teams Community Development Coordinator Relationship Specialty Start Date End Date Radha Murphy MD [address] [place] [address] PCP - General Family Medicine 11/13/18 06/11/24 Unknown, Notinfile PCP - General 06/12/24 Yoanna Dove MD PhD [address] [place] [address] Surgeon Vascular Surgery 12/09/18 Jair Waterman MD [address] [place] [address] Consulting Physician Medical Oncology 05/29/24 Serina Pedroza MD [address] [facility] [address] [place] [address] Radiation Oncologist Radiation Oncology 07/14/24 documented as of this encounter
--- OUTSIDE RECORDS SUMMARY | 2025-05-29 16:12 | XMS_ITS ---
Author Organization [facility] al Address [address] [place] [address] Care Team Providers Care Supervisor [employer] Name Role Phone Yoanna Dove MD PhD Unavailable [phone] Jair Waterman MD Unavailable Unknown, Notinfile Primary Care Provider Unavail able Serina Pedroza MD Unavailable [phone] Active Problems Problem Noted Date Diagnosed Date Encounter for preoperative assessment 03/05/2025 Bowel obstruction 01/10/2025 Assessment & Plan (01/13/2025 5:11 PM CDT): - Patient presenting with acute onset of worsening abdominal pain, nausea and vomiting, which feel to her similar in characteristic to her prior history of bowel obstructions. 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 Associated mild wall thickening of scattered small bowel loops may represent a component of superimposed enteritis. - On PRN nausea meds - s/p 1L IVF and given a dose of ceftriaxone on 01/10 and started Augmentin 01/11- 01/14 for possible enteritis - Unable to place NG tube and No nausea/vomiting. Hence advanced diet to clear liquid-->esophageal soft-->regular. Assessment & Plan (01/12/2025 6:25 PM CDT): - Patient presenting with acute onset of worsening abdominal pain, nausea and vomiting, which feel to her similar in characteristic to her prior history of bowel obstructions. 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 Associated mild wall thickening of scattered small bowel loops may represent a component of superimposed enteritis. - On PRN nausea meds - s/p 1L IVF and given a dose of ceftriaxone on 01/10 and started Augmentin 01/11- P - Unable to place NG tube and No nausea/vomiting. Hence advanced diet to clear liquid-->esophageal soft. Assessment & Plan (01/11/2025 6:23 PM CDT): - Patient presenting with acute onset of worsening abdominal pain, nausea and vomiting, which feel to her similar in characteristic to her prior history of bowel obstructions. 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 Associated mild wall thickening of scattered small bowel loops may represent a component of superimposed enteritis. - On PRN nausea meds - s/p 1L IVF and given a dose of ceftriaxone on 01/10 and started Augmentin 01/11- P - Unable to place NG tube and No nausea/vomiting. Hence advanced diet to clear liquid. Assessment & Plan (01/10/2025 6:28 PM CDT): - Patient presenting with acute onset of worsening abdominal pain, nausea and vomiting, which feel to her similar in characteristic to her prior history of bowel obstructions. - We will plan to get a CT scan of her abdomen and pelvis to evaluate for possible partial versus total obstruction. If she does have evidence of obstruction, would recommend NG tube placement which he has had in the past. -Unfortunately, patient has significant contrast allergy and tries to avoid contrast in general due to her renal dysfunction, so we will have to start with a noncontrasted scan - Plan for symptomatic control as well with antiemetics - Given significant poor p.o. intake over the past several days, we will plan for 1 L of lactated Ringer bolus, but we will avoid maintenance fluids due to her end- stage renal disease and difficulty with fluid balance. Intractable nausea and vomiting 01/10/2025 Assessment & Plan (01/13/2025 5:11 PM CDT): - Patient presenting with acute onset of worsening abdominal pain, nausea and vomiting, which feel to her similar in characteristic to her prior history of bowel obstructions. 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 Associated mild wall thickening of scattered small bowel loops may represent a component of superimposed enteritis. - On PRN nausea meds - s/p 1L IVF and given a dose of ceftriaxone on 01/10 and started Augmentin 01/11- 01/14 for possible enteritis - Unable to place NG tube and No nausea/vomiting. Hence advanced diet to clear liquid-->esophageal soft-->regular. Assessment & Plan (01/12/2025 6:25 PM CDT): - Patient presenting with acute onset of worsening abdominal pain, nausea and vomiting, which feel to her similar in characteristic to her prior history of bowel obstructions. 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 Associated mild wall thickening of scattered small bowel loops may represent a component of superimposed enteritis. - On PRN nausea meds - s/p 1L IVF and given a dose of ceftriaxone on 01/10 and started Augmentin 01/11- P - Unable to place NG tube and No nausea/vomiting. Hence advanced diet to clear liquid-->esophageal soft. Assessment & Plan (01/11/2025 6:23 PM CDT): - Patient presenting with acute onset of worsening abdominal pain, nausea and vomiting, which feel to her similar in characteristic to her prior history of bowel obstructions. 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 Associated mild wall thickening of scattered small bowel loops may represent a component of superimposed enteritis. - On PRN nausea meds - s/p 1L IVF and given a dose of ceftriaxone on 01/10 and started Augmentin 01/11- P - Unable to place NG tube and No nausea/vomiting. Hence advanced diet to clear liquid. Assessment & Plan (01/10/2025 6:28 PM CDT): - Patient presenting with acute onset of worsening abdominal pain, nausea and vomiting, which feel to her similar in characteristic to her prior history of bowel obstructions. - We will plan to get a CT scan of her abdomen and pelvis to evaluate for possible partial versus total obstruction. If she does have evidence of obstruction, would recommend NG tube placement which he has had in the past. -Unfortunately, patient has significant contrast allergy and tries to avoid contrast in general due to her renal dysfunction, so we will have to start with a noncontrasted scan - Plan for symptomatic control as well with antiemetics - Given significant poor p.o. intake over the past several days, we will plan for 1 L of lactated Ringer bolus, but we will avoid maintenance fluids due to her end- stage renal disease and difficulty with fluid balance. Abdominal pain 11/22/2024 Assessment & Plan (11/27/2024 2:34 PM CDT): Due to partial small bowel obstruction Longstanding issue with bowel obstruction/ileus in the setting of multiple abdominal surgeries and possible mesentric neuroendocrine tumor. - CT A/P wo contrast (hx contrast allergy): Multiple mildly dilated fluid-filled loops of small bowel, without discrete transition point identified, may represent partial small bowel obstruction Patient was treated conservatively with bowel rest, later patient's nausea/vomiting/abdominal pain got improved, patient was started on diet, patient's diet was advanced. Patient started tolerating solid diet without any issues. will discharge patient home. Assessment & Plan (11/26/2024 11:50 AM CDT): Longstanding issue with bowel obstruction/ileus in the setting of multiple abdominal surgeries and possible mesentric neuroendocrine tumor. Substantial nausea with intermittent emesis. Variable stool output (sometimes diarrhea, sometimes no BM for days) - CT A/P wo contrast (hx contrast allergy): Multiple mildly dilated fluid-filled loops of small bowel, without discrete transition point identified, may represent partial small bowel obstruction - med onc feels It is unlikely that her presumed neuroendocrine neoplasm is the sole etiology of her current partial SBO - On full liquid diet - serial abdominal exam Assessment & Plan (11/25/2024 11:42 AM CDT): Longstanding issue with bowel obstruction/ileus in the setting of multiple abdominal surgeries and possible mesentric neuroendocrine tumor. Substantial nausea with intermittent emesis. Variable stool output (sometimes diarrhea, sometimes no BM for days) - CT A/P wo contrast (hx contrast allergy): Multiple mildly dilated fluid-filled loops of small bowel, without discrete transition point identified, may represent partial small bowel obstruction - med onc feels It is unlikely that her presumed neuroendocrine neoplasm is the sole etiology of her current partial SBO - Tolerated clear liquid diet, advanced to full liquid diet - serial abdominal exam Assessment & Plan (11/24/2024 9:44 AM CDT): Longstanding issue with bowel obstruction/ileus in the setting of multiple abdominal surgeries and possible mesentric neuroendocrine tumor. Substantial nausea with intermittent emesis. Variable stool output (sometimes diarrhea, sometimes no BM for days) - CT A/P wo contrast (hx contrast allergy): Multiple mildly dilated fluid-filled loops of small bowel, without discrete transition point identified, may represent partial small bowel obstruction - med onc feels It is unlikely that her presumed neuroendocrine neoplasm is the sole etiology of her current partial SBO - diet changed to CLD as no nausea/vomiting - serial abdominal exam Assessment & Plan (11/23/2024 10:33 AM CDT): Longstanding issue with bowel obstruction/ileus in the setting of multiple abdominal surgeries and possible mesentric neuroendocrine tumor. Substantial nausea with intermittent emesis. Variable stool output (sometimes diarrhea, sometimes no BM for days) - CT A/P wo contrast (hx contrast allergy): Multiple mildly dilated fluid-filled loops of small bowel, without discrete transition point identified, may represent partial small bowel obstruction - NPO - serial abdominal exam Assessment & Plan (11/22/2024 6:02 PM CDT): Longstanding issue with bowel obstruction/ileus in the setting of multiple abdominal surgeries and possible small bowel carcinoid tumor. Substantial nausea with intermittent emesis. Variable stool output (sometimes diarrhea, sometimes no BM for days) - last BM 11/16. Previously documented concern for carcinoid syndrome. Given extensive history of vasculopathy, mesenteric ischemia is a distinct possibility. Other consideration is pyelonephritis/hydronephrosis given R ureteral stent. Tolerating small amounts of food - KUB, CT A/P wo contrast (hx contrast allergy); may require a contrasted study if there is concern for mesenteric ischemia - Check lactate, CMP, TSH - Check UA w/reflex to culture - RD consult - Limit opioids and anticholinergics, hold nifedipine for now given concern for ileus Diagnosis unknown 11/19/2024 Overview (11/19/2024): low Low hemoglobin 11/19/2024 Spinal stenosis 11/19/2024 Adenocarcinoma of left lung 05/27/2024 Overview (06/11/2024): [facility] #: [id number] Taken:05/06/2024 Received:05/06/2024 Reported: 05/08/2024 Patient Type: [facility] Ancillary Service: Pulmonary Location: Physician(s): Luiz Landers MD Saiama N. Waqar, M.D. FINAL DIAGNOSIS A. Lung, left upper lobe nodule, endobronchial ultrasound-guided fine needle aspiration: - Non-small cell carcinoma, favor adenocarcinoma (see comment) Assessment & Plan (01/13/2025 8:32 AM CDT): - Diagnosed 01/2024 with 1.7 x 2.1cm left upper lobe pulmonary spiculated nodule with mild dotatate uptake on PET dotatate scan. EBUS biopsy of left upper lobe lung nodule on 05/06/24 showed non-small cell carcinoma favored to be adenocarcinoma. S/p palliative XRT (end 07/07/24) with resolution of L apical pulmonary mass on PET/CT 09/30/24 Assessment & Plan (01/12/2025 9:19 AM CDT): - Diagnosed 01/2024 with 1.7 x 2.1cm left upper lobe pulmonary spiculated nodule with mild dotatate uptake on PET dotatate scan. EBUS biopsy of left upper lobe lung nodule on 05/06/24 showed non-small cell carcinoma favored to be adenocarcinoma. S/p palliative XRT (end 07/07/24) with resolution of L apical pulmonary mass on PET/CT 09/30/24 Assessment & Plan (01/11/2025 8:48 AM CDT): - Diagnosed 01/2024 with 1.7 x 2.1cm left upper lobe pulmonary spiculated nodule with mild dotatate uptake on PET dotatate scan. EBUS biopsy of left upper lobe lung nodule on 05/06/24 showed non-small cell carcinoma favored to be adenocarcinoma. S/p palliative XRT (end 07/07/24) with resolution of L apical pulmonary mass on PET/CT 09/30/24 Assessment & Plan (01/10/2025 6:28 PM CDT): - Diagnosed 01/2024 with 1.7 x 2.1cm left upper lobe pulmonary spiculated nodule with mild dotatate uptake on PET dotatate scan. EBUS biopsy of left upper lobe lung nodule on 05/06/24 showed non-small cell carcinoma favored to be adenocarcinoma. S/p palliative XRT (end 07/07/24) with resolution of L apical pulmonary mass on PET/CT 09/30/24 Assessment & Plan (11/27/2024 2:34 PM CDT): She was found in 01/2024 to have 1.7 x 2.1cm left upper lobe pulmonary spiculated nodule with mild dotatate uptake on PET dotatate scan. EBUS biopsy of left upper lobe lung nodule on 05/06/24 showed non-small cell carcinoma favored to be adenocarcinoma. S/p palliative XRT (end 07/07/24) with resolution of L apical pulmonary mass on PET/CT 09/30/24 Assessment & Plan (11/26/2024 11:50 AM CDT): She was found in 01/2024 to have 1.7 x 2.1cm left upper lobe pulmonary spiculated nodule with mild dotatate uptake on PET dotatate scan. EBUS biopsy of left upper lobe lung nodule on 05/06/24 showed non-small cell carcinoma favored to be adenocarcinoma. S/p palliative XRT (end 07/07/24) with resolution of L apical pulmonary mass on PET/CT 09/30/24 Assessment & Plan (11/25/2024 11:42 AM CDT): She was found in 01/2024 to have 1.7 x 2.1cm left upper lobe pulmonary spiculated nodule with mild dotatate uptake on PET dotatate scan. EBUS biopsy of left upper lobe lung nodule on 05/06/24 showed non-small cell carcinoma favored to be adenocarcinoma. S/p palliative XRT (end 07/07/24) with resolution of L apical pulmonary mass on PET/CT 09/30/24 Assessment & Plan (11/24/2024 9:44 AM CDT): She was found in 01/2024 to have 1.7 x 2.1cm left upper lobe pulmonary spiculated nodule with mild dotatate uptake on PET dotatate scan. EBUS biopsy of left upper lobe lung nodule on 05/06/24 showed non-small cell carcinoma favored to be adenocarcinoma. S/p palliative XRT (end 07/07/24) with resolution of L apical pulmonary mass on PET/CT 09/30/24 Assessment & Plan (11/23/2024 10:33 AM CDT): She was found in 01/2024 to have 1.7 x 2.1cm left upper lobe pulmonary spiculated nodule with mild dotatate uptake on PET dotatate scan. EBUS biopsy of left upper lobe lung nodule on 05/06/24 showed non-small cell carcinoma favored to be adenocarcinoma. S/p palliative XRT (end 07/07/24) with resolution of L apical pulmonary mass on PET/CT 09/30/24 Assessment & Plan (11/22/2024 5:54 PM CDT): She was found in 01/2024 to have 1.7 x 2.1cm left upper lobe pulmonary spiculated nodule with mild dotatate uptake on PET dotatate scan. EBUS biopsy of left upper lobe lung nodule on 05/06/24 showed non-small cell carcinoma favored to be adenocarcinoma. S/p palliative XRT (end 07/07/24) with resolution of L apical pulmonary mass on PET/CT 09/30/24 - north onc c/s Assessment & Plan (06/03/2024 2:13 PM SLIP BRIDGE OPERATOR): Follows with Dr. Gaitan, seen in clinic 05/27. - She was found in 01/2024 to have 1.7 x 2.1cm left upper lobe pulmonary spiculated nodule with mild dotatate uptake on PET dotatate scan. - EBUS biopsy of left upper lobe lung nodule on 05/06/24 showed non-small cell carcinoma favored to be adenocarcinoma - MRI brain (05/29) - no IC mets; FDG PET (05/28/24) - Markedly hypermetabolic left upper lobar spiculated pulmonary nodule is consistent with known non-small cell carcinoma. There is no FDG PET evidence of mimi or distant metastasis. Previously demonstrated soft tissue mass in the mesentery and small bowel lesions do not reveal significant FDG uptake. 2. Moderately hypermetabolic right thyroid nodule. Correlation with ultrasound is recommended. 3. Intense FDG uptake along the infrarenal aortic aneurysm as well as along the femoral arterial bypass grafts, likely reactive. 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 Waterman for history of suspected neuroendocrine neoplasm - Has not been able to be confirmed by biopsy, but clinically has had episodes of periodic diarrhea - onc on board. Recommended to follow up as outpt and also the recurrent SBO could be from the neuroendocrine cancer and plan to revisit the regimen again. Assessment & Plan (01/12/2025 6:25 PM CDT): - Patient follows with Dr. Waterman for history of suspected neuroendocrine neoplasm - Has not been able to be confirmed by biopsy, but clinically has had episodes of periodic diarrhea - onc on board. Recommended to follow up as outpt and also the recurrent SBO could be from the neuroendocrine cancer and plan to revisit the regimen again. Assessment & Plan (01/11/2025 6:23 PM CDT): - Patient follows with Dr. Waterman for history of suspected neuroendocrine neoplasm - Has not been able to be confirmed by biopsy, but clinically has had episodes of periodic diarrhea - onc on board Assessment & Plan (01/10/2025 6:28 PM CDT): - Patient follows with Dr. Waterman for history of suspected neuroendocrine neoplasm - Has not been able to be confirmed by biopsy, but clinically has had episodes of periodic diarrhea - Admitted with another episode of severe abdominal pain/discomfort, plan for oncology consult Assessment & Plan (06/03/2024 2:15 PM SLIP BRIDGE OPERATOR): Patient has had intermittent self resolving small bowel obstruction episodes and more recently uncontrolled diarrhea Possible carcinoid lesions in the distal small bowel seen in CT in June of 2023 PET-DOTATATE scan showed intensely somatostatin receptor avid lesions in the distal small bowel associated with tracer avid mesenteric node/adjacent desmoplasia Patient had a quick resolution of the diarrhea while started on octreotide, held beginning 05/30 with no bowel movements until 11/5 AM - serotonin serum 367, chromogranin A - 399 - urine 5 HIAA - pending - unable to obtain biopsy inpatient. GI feels reaching lesion via balloon enteroscopy would be difficult, HPB recommended against surgery given adhesions, IR considered FNA but unable to visualize mass on abdominal US - Per discussion with oncology, no further need for inpatient workup, discharge for outpatient follow up with Dr. Waterman Diarrhea 05/27/2024 Assessment & Plan (06/02/2024 1:56 PM SLIP BRIDGE OPERATOR): Likely 2/2 known carcinoid tumor; unable to send cdiff as diarrhea resolved quickly with octreotide initiation. - serotonin serum 367, chromogranin A - 399 - urine 5 HIAA pending - holding octreotide as no BM for over 24 hrs Generalized weakness 05/27/2024 Assessment & Plan (06/03/2024 2:16 PM SLIP BRIDGE OPERATOR): 2/2 dehydration and diarrhea discussed elsewhere PT - home with family/home with initial 24 hour supervision/home. Daughter will take home and supervise initially at home while patient regains strength Atrial fibrillation 05/27/2024 Assessment & Plan (06/03/2024 2:16 PM SLIP BRIDGE OPERATOR): S/p ablation. 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 Waterman. Suspicion for a neuroendocrine neoplasm (consensus at [facility]) based on episodes of diarrhea and index mesenteric mass, Dotatate avid and FDG negative. Not amenable to surgery or biopsy by HPB or IR. Assessment & Plan (11/26/2024 11:50 AM CDT): Follows Roque Waterman. Suspicion for a neuroendocrine neoplasm (consensus at [facility]) based on episodes of diarrhea and index mesenteric mass, Dotatate avid and FDG negative. Not amenable to surgery or biopsy by HPB or IR. - north onc c/s Assessment & Plan (11/25/2024 11:42 AM CDT): Follows Roque Waterman. Suspicion for a neuroendocrine neoplasm (consensus at [facility]) based on episodes of diarrhea and index mesenteric mass, Dotatate avid and FDG negative. Not amenable to surgery or biopsy by HPB or IR. - north onc c/s Assessment & Plan (11/24/2024 9:44 AM CDT): Follows Roque Waterman. Suspicion for a neuroendocrine neoplasm (consensus at [facility]) based on episodes of diarrhea and index mesenteric mass, Dotatate avid and FDG negative. Not amenable to surgery or biopsy by HPB or IR. - north onc c/s Assessment & Plan (11/23/2024 10:33 AM CDT): Follows Roque Waterman. Suspicion for a neuroendocrine neoplasm (consensus at [facility]) based on episodes of diarrhea and index mesenteric mass, Dotatate avid and FDG negative. Not amenable to surgery or biopsy by HPB or IR. - north onc c/s Assessment & Plan (11/22/2024 5:54 PM CDT): Follows w/Dr. Waterman. Suspicion for a neuroendocrine neoplasm (consensus at [facility]) based on episodes of diarrhea and index mesenteric mass, Dotatate avid and FDG negative. Not amenable to surgery or biopsy by HPB or IR. Some concern in the past for carcinoid syndrome based on diarrhea, but clinical picture is not fully clear. Possibly contributing to present abdominal pain - north onc c/s Hypothyroidism 01/25/2023 Insomnia 01/25/2023 Anxiety 10/23/2022 Assessment & Plan (01/13/2025 8:32 AM CDT): - PRN clonazepam (home medication) Assessment & Plan (01/12/2025 9:19 AM CDT): - PRN clonazepam (home medication) Assessment & Plan (01/11/2025 8:48 AM CDT): - PRN clonazepam (home medication) Assessment & Plan (01/10/2025 6:28 PM CDT): - PRN clonazepam (home medication) Bilateral carotid artery stenosis 07/19/2022 History of GI bleed 07/19/2022 Statin myopathy 07/19/2022 ESRD (end stage renal disease) 06/12/2022 Overview (06/12/2022): Added automatically from request for surgery [id number] Assessment & Plan (01/13/2025 8:32 AM CDT): - On lasix and has oliguri. M/F schedules but missed Sunday. - consulted nephrology for dialysis on 01/12 Assessment & Plan (01/12/2025 9:19 AM CDT): - On lasix and has oliguri. M/F schedules but missed Sunday. - consulted nephrology for dialysis on 01/12 Assessment & Plan (01/11/2025 6:23 PM CDT): - On lasix and has oliguri. M/F schedules but missed Sunday. - consulted nephrology for dialysis on 01/12 Assessment & Plan (01/10/2025 6:28 PM CDT): - Patient currently gets dialysis on Mondays and Fridays, also on scheduled Lasix she is nonoliguric - We will consult Nephrology team to resume dialysis on Sunday, does not appear overtly volume overloaded at this point in time Assessment & Plan (11/27/2024 2:34 PM CDT): Gets HD Mondays and Fridays. Still makes urine. Euvolemic on exam. - Renal on board for HD - Continue Lasix 40 BID Assessment & Plan (11/26/2024 11:50 AM CDT): Gets HD Mondays and Fridays. Still makes urine. Euvolemic on exam. - Renal on board for HD - Continue Lasix 40 BID Assessment & Plan (11/25/2024 11:42 AM CDT): Gets HD Mondays and Fridays. Still makes urine. Euvolemic on exam. - Renal on board for HD - Continue Lasix 40 BID Assessment & Plan (11/24/2024 9:44 AM CDT): Gets HD Mondays and Fridays. Still makes urine. Euvolemic on exam. - Renal on board for HD - Continue Lasix 40 BID Assessment & Plan (11/23/2024 10:33 AM CDT): Gets HD Mondays and Fridays. Still makes urine. Euvolemic on exam. - Renal consult for HD - Continue Lasix 40 BID Assessment & Plan (11/22/2024 5:54 PM CDT): Gets HD Mondays and Fridays. Still makes urine. Euvolemic on exam. - Renal consult for HD when closer to dialysis day - Continue Lasix 40 BID Assessment & Plan (06/03/2024 2:11 PM SLIP BRIDGE OPERATOR): HD on Mondays and Fridays - nephrology following; s/p HD on 05/30, 06/02 - PTH 196 Assessment & Plan (06/13/2022 2:47 PM SLIP BRIDGE OPERATOR): Patient seen today for malfunctioning subclavian Perma catheter. states that she only able to be dialyzed for 1 hour on Sunday06/09/2022. They used Allteplase to the catheter which did not resolve the issue of high-pressure alarms. I stated that the red port was sluggish unable to draw. Here at the access center blue port is working well however the report remained sluggish. Chest x-ray shows the tip of the catheter in the superior vena cava. She has had this catheter for the past year. As is nonfunctioning she will need appropriate catheter exchange. Discussed procedure with the patient. Answered all questions at this time. She is scheduled for catheter exchange with Dr. Kelly Cole tomorrow at 1:30 p.m. Ureteral obstruction, right 04/20/2022 Obstruction of right ureter 11/15/2018 Overview (11/15/2018): Added automatically from request for surgery [id number] Sciatica 07/11/2018 Assessment & Plan (07/11/2018 4:12 AM SLIP BRIDGE OPERATOR): With MRI spine earlier this year w/o evidence of central canal stenosis. Seen by orthopedic surgery for this and started on Celebrex. Peripheral neuropathy 07/11/2018 Assessment & Plan (05/28/2024 6:23 PM CDT): On gabapentin 300 nightly Assessment & Plan (07/11/2018 5:50 AM SLIP BRIDGE OPERATOR): Peripheral vascular neuropathy. Resume gabapentin. Check B12. Peripheral vascular disease 07/11/2018 Assessment & Plan (01/13/2025 8:32 AM CDT): - Has history of longstanding vascular disease with multiple surgeries including fem-fem bypasses, aortobifemoral grafting, angioplastie - h/o CABG. Continue ASA 325 mg nightly Assessment & Plan (01/12/2025 9:19 AM CDT): - Has history of longstanding vascular disease with multiple surgeries including fem-fem bypasses, aortobifemoral grafting, angioplastie - h/o CABG. Continue ASA 325 mg nightly Assessment & Plan (01/11/2025 6:23 PM CDT): - Has history of longstanding vascular disease with multiple surgeries including fem-fem bypasses, aortobifemoral grafting, angioplastie - h/o CABG. Continue ASA 325 mg nightly Assessment & Plan (01/10/2025 6:28 PM CDT): - Has history of longstanding vascular disease with multiple surgeries including fem-fem bypasses, aortobifemoral grafting, angioplastie - Also has previously undergone CABG - Continue ASA 325 mg nightly Assessment & Plan (11/27/2024 2:34 PM CDT): Extensive history of vascular surgeries including fem-fem bypasses, aortobifemoral grafting, angioplasties, CABG - ASA 325 nightly Assessment & Plan (11/26/2024 11:50 AM CDT): Extensive history of vascular surgeries including fem-fem bypasses, aortobifemoral grafting, angioplasties, CABG - ASA 325 nightly Assessment & Plan (11/25/2024 11:42 AM CDT): Extensive history of vascular surgeries including fem-fem bypasses, aortobifemoral grafting, angioplasties, CABG - ASA 325 nightly Assessment & Plan (11/24/2024 9:44 AM CDT): Extensive history of vascular surgeries including fem-fem bypasses, aortobifemoral grafting, angioplasties, CABG - ASA 325 nightly - held just in case if she requires surgery for sbo, resume if tolerating clear liquid diet Assessment & Plan (11/23/2024 10:33 AM CDT): Extensive history of vascular surgeries including fem-fem bypasses, aortobifemoral grafting, angioplasties, CABG - Continue ASA 325 nightly Assessment & Plan (11/22/2024 5:54 PM CDT): Extensive history of vascular surgeries including fem-fem bypasses, aortobifemoral grafting, angioplasties, CABG - Continue ASA 325 nightly Assessment & Plan (07/19/2018 12:07 PM SLIP BRIDGE OPERATOR): She has a long vascular history s/p aortobifemoral and fem-fem bypass with recurrent claudication s/p TRADING ANALYST stent x 2 to R aortofem limb and known L limb occlusion. She now presents with worsening vascular neuropathy and claudication symptoms, which are not explained by her recent spine MRI. CTA was obtained on 07/12 and shows fairly patent grafts; however vascular surgery is concerned that given her degree of vascular disease, she should remain inpatient on a heparin drip for as long as she is off aspirin and Plavix. Now that her scopes have been finished, she can go off the heparin drip. -Continue Zetia -History of statin myopathy -Appreciate vascular surgery recs, will eventually need outpatient follow-up with Dr. Dove -Per vascular, stay on aspirin and may discontinue Plavix - Also vascular recommends Eliquis 5 BID. Assessment & Plan (07/18/2018 12:40 PM SLIP BRIDGE OPERATOR): She has a long vascular history s/p aortobifemoral and fem-fem bypass with recurrent claudication s/p TRADING ANALYST stent x 2 to R aortofem limb and known L limb occlusion. She now presents with worsening vascular neuropathy and claudication symptoms, which are not explained by her recent spine MRI. CTA was obtained on 07/12 and shows fairly patent grafts; however vascular surgery is concerned that given her degree of vascular disease, she should remain inpatient on a heparin drip for as long as she is off aspirin and Plavix. Now that her scopes have been finished, she can go off the heparin drip. -Continue Zetia -History of statin myopathy -Appreciate vascular surgery recs, will eventually need outpatient follow-up with Dr. Dove -Per vascular, stay on aspirin and may discontinue Plavix - Also vascular recommends Eliquis 5 BID. Assessment & Plan (07/17/2018 2:30 PM SLIP BRIDGE OPERATOR): She has a long vascular history s/p aortobifemoral and fem-fem bypass with recurrent claudication s/p TRADING ANALYST stent x 2 to R aortofem limb and known L limb occlusion. She now presents with worsening vascular neuropathy and claudication symptoms, which are not explained by her recent spine MRI. CTA was obtained on 07/12 and shows fairly patent grafts; however vascular surgery is concerned that given her degree of vascular disease, she should remain inpatient on a heparin drip for as long as she is off aspirin and Plavix. -Continue Zetia -History of statin myopathy -Appreciate vascular surgery recs, will eventually need outpatient follow-up with Dr. Dove -Per vascular, is okay to stay on aspirin and may discontinue Plavix if no heart indication after GI workup - Also vascular recommends starting Eliquis 5 BID. Assessment & Plan (07/16/2018 10:57 AM SLIP BRIDGE OPERATOR): She has a long vascular history s/p aortobifemoral and fem-fem bypass with recurrent claudication s/p TRADING ANALYST stent x 2 to R aortofem limb and known L limb occlusion. She now presents with worsening vascular neuropathy and claudication symptoms, which are not explained by her recent spine MRI. CTA was obtained on 07/12 and shows fairly patent grafts; however vascular surgery is concerned that given her degree of vascular disease, she should remain inpatient on a heparin drip for as long as she is off aspirin and Plavix. -Continue Zetia -History of statin myopathy -Appreciate vascular surgery recs, will eventually need outpatient follow-up with Dr. Dove -Holding ASA/Plavix and bridging with heparin drip, holding heparin 6 hours before any procedure Assessment & Plan (07/15/2018 2:08 PM SLIP BRIDGE OPERATOR): She has a long vascular history s/p aortobifemoral and fem-fem bypass with recurrent claudication s/p TRADING ANALYST stent x 2 to R aortofem limb and known L limb occlusion. She now presents with worsening vascular neuropathy and claudication symptoms, which are not explained by her recent spine MRI. CTA was obtained on 07/12 and shows fairly patent grafts; however vascular surgery is concerned that given her degree of vascular disease, she should remain inpatient on a heparin drip for as long as she is off aspirin and Plavix. -Continue Zetia -History of statin myopathy -Appreciate vascular surgery recs, will eventually need outpatient follow-up with Dr. Dove -Holding ASA/Plavix and bridging with heparin drip - plan to hold heparin drip 6 hr before any procedure. Assessment & Plan (07/14/2018 12:52 PM SLIP BRIDGE OPERATOR): She has a long vascular history s/p aortobifemoral and fem-fem bypass with recurrent claudication s/p TRADING ANALYST stent x 2 to R aortofem limb and known L limb occlusion. She now presents with worsening vascular neuropathy and claudication symptoms, which are not explained by her recent spine MRI. CTA was obtained on 07/12 and shows fairly patent grafts; however vascular surgery is concerned that given her degree of vascular disease, she should remain inpatient on a heparin drip for as long as she is off aspirin and Plavix. -Continue Zetia -History of statin myopathy -Appreciate vascular surgery recs, will eventually need outpatient follow-up with Dr. Dove -Holding ASA/Plavix and bridging with heparin drip Assessment & Plan (07/13/2018 5:26 PM SLIP BRIDGE OPERATOR): She has a long vascular history s/p aortobifemoral and fem-fem bypass with recurrent claudication s/p TRADING ANALYST stent x 2 to R aortofem limb and known L limb occlusion. She now presents with worsening vascular neuropathy and claudication symptoms, which are not explained by her recent spine MRI. CTA was obtained on 07/12 and shows fairly patent grafts; however vascular surgery is concerned that given her degree of vascular disease, she should remain inpatient on a heparin drip for as long as she is off aspirin and Plavix. -Continue Zetia -History of statin myopathy -Holding ASA/Plavix and bridging with heparin drip Assessment & Plan (07/12/2018 6:40 PM SLIP BRIDGE OPERATOR): She has a long vascular history s/p aortobifemoral and fem-fem bypass with recurrent claudication s/p TRADING ANALYST stent x 2 to R aortofem limb and known L limb occlusion. She now presents with worsening vascular neuropathy and claudication symptoms, which are not explained by her recent spine MRI. CTA was obtained today and shows fairly patent grafts; however vascular surgery is concerned that given her degree of vascular disease, she should remain inpatient on a heparin drip for as long as she is off aspirin and Plavix. -Continue Zetia -History of statin myopathy -Holding ASA/Plavix and bridging with heparin drip Assessment & Plan (07/11/2018 5:37 AM SLIP BRIDGE OPERATOR): H/o aortobifemoral and fem-fem bypass with recurrent claudication s/p TRADING ANALYST stent x 2 to R aortofem limb and known L limb occlusion. Patient with acute of chronic worsening of b/l lower extremity numbness and decreased pulses. Recent spine MRI not c/w spine compression to explain these symptoms. Patient also with known infrarenal AAA and aortofem bypass graft arising from this aneurysm. Per patient, her vascular surgeon has now retired. -concern for vascular neuropathy -will order ABIs and discuss with vascular surgery as may need CT angio for further eval while inhouse. -ASA and Plavix currently on hold due to c/f GIB -no longer on Evolocumab as unable to afford; h/o myopathy wit statin -continue Zetia, check lipids Recurrent UTI 07/11/2018 Assessment & Plan (07/19/2018 12:08 PM SLIP BRIDGE OPERATOR): Patient with recurrent UTI over the past 3 years and recent admission in April for pyelo. Has history of chronic right ureteral obstruction and undergoes yearly stent exchanges with Dr. Carney here. -Urine culture with no growth, CTX discontinued Assessment & Plan (07/18/2018 12:43 PM SLIP BRIDGE OPERATOR): Patient with recurrent UTI over the past 3 years and recent admission in April for pyelo. Has history of chronic right ureteral obstruction and undergoes yearly stent exchanges with Dr. Carney here. -Urine culture with no growth, CTX discontinued Assessment & Plan (07/17/2018 2:31 PM SLIP BRIDGE OPERATOR): Patient with recurrent UTI over the past 3 years and recent admission in April for pyelo. Has history of chronic right ureteral obstruction and undergoes yearly stent exchanges with Dr. Carney here. -Urine culture with no growth, CTX discontinued Assessment & Plan (07/16/2018 11:01 AM SLIP BRIDGE OPERATOR): Patient with recurrent UTI over the past 3 years and recent admission in April for pyelo. Has history of chronic right ureteral obstruction and undergoes yearly stent exchanges with Dr. Carney here. -Urine culture with no growth, CTX discontinued Assessment & Plan (07/15/2018 2:09 PM SLIP BRIDGE OPERATOR): Patient with recurrent UTI over the past 3 years and recent admission in April for pyelo. Has history of chronic right ureteral obstruction and undergoes yearly stent exchanges with Dr. Carney here. -Urine culture with no growth, CTX discontinued Assessment & Plan (07/12/2018 6:40 PM SLIP BRIDGE OPERATOR): Patient with recurrent UTI over the past 3 years and recent admission in April for pyelo. Has history of chronic right ureteral obstruction and undergoes yearly stent exchanges with Dr. Carney here. -Urine culture with no growth, CTX discontinued Assessment & Plan (07/11/2018 5:45 AM SLIP BRIDGE OPERATOR): Patient with recurrent UTI over the past 3 years and recent admission in April for pyelo. Has history of chronic right ureteral obstruction and undergoes yearly stent exchanges with Dr. Carney here. Planned for next exchange in the spring. -UA with 3+ LE and pyuria. Symptomatic a few days ago but states that sxs have now improved. -started empirically on CTX; f/u Ucx and d/c abx if no growth Anemia 07/11/2018 Assessment & Plan (07/19/2018 12:08 PM SLIP BRIDGE OPERATOR): She presented with anemia down to 6.8 in setting of almost a month of dark and maroon stools. These have cleared in the week before admission, and she has no active signs of bleeding currently. She finished her scopes on 07/16 with no absolute cause of the anemia. On 07/17, patient's Hgb dropped from 8.4 to 7. 12/20 After 2 units of blood, now at 9.9. KUB shows pill not stuck in abdomen. On 07/19, hemoglobin stable at 9.9 and had endoscopy did not find a source of bleeding. -Transfuse for Hgb >7 -PO PPI - start ferrous sulfate 325 daily Assessment & Plan (07/18/2018 12:41 PM SLIP BRIDGE OPERATOR): She presented with anemia down to 6.8 in setting of almost a month of dark and maroon stools. These have cleared in the week before admission, and she has no active signs of bleeding currently. She finished her scopes on 07/16 with no absolute cause of the anemia. On 07/17, patient's Hgb dropped from 8.4 to 7. 12/20 After 2 units of blood, now at 9.9. KUB shows pill not stuck in abdomen. -Transfuse for Hgb >7 -PO PPI - Now to get, actual study pill. Assessment & Plan (07/17/2018 2:33 PM SLIP BRIDGE OPERATOR): She presented with anemia down to 6.8 in setting of almost a month of dark and maroon stools. These have cleared in the week before admission, and she has no active signs of bleeding currently. She finished her scopes on 07/16 with no absolute cause of the anemia. On 07/17, patient's Hgb dropped from 8.4 to 7. -Transfuse for Hgb >7 - 07/17 transfuse 2 units of blood - After conversation with GI, planning to give placebo pill the PM, then KUB tomorrow morning with NPO at midnight. - Actual pill study tomorrow -PO PPI Assessment & Plan (07/16/2018 10:58 AM SLIP BRIDGE OPERATOR): She presented with anemia down to 6.8 in setting of almost a month of dark and maroon stools. These have cleared in the week before admission, and she has no active signs of bleeding currently. GI would like her to be off ASA/Plavix for at least five days at this would otherwise limit her endoscopic intervention options. However given her severe PVD, vascular surgery recommends bridging with a heparin drip, so she will need to remain here until her scopes on 07/16. Her hemoglobin has been fairly stable here with a very slow downtrend since transfusion. -Transfuse for Hgb >7 -PO PPI -Dual scopes today -Should return to previous diet after scopes if they do not find any problems. Assessment & Plan (07/15/2018 2:09 PM SLIP BRIDGE OPERATOR): She presented with anemia down to 6.8 in setting of almost a month of dark and maroon stools. These have cleared in the week before admission, and she has no active signs of bleeding currently. GI would like her to be off ASA/Plavix for at least five days at this would otherwise limit her endoscopic intervention options. However given her severe PVD, vascular surgery recommends bridging with a heparin drip, so she will need to remain here until her scopes on 07/16. Her hemoglobin has been fairly stable here with a very slow downtrend since transfusion. -Transfuse for Hgb >7 -Transitioned PPI to PO -Plan dual scopes on 07/16 after five days off ASA/Plavix, bridging with heparin drip until then -clear liquid diet today, ordered new bowel prep for the evening. Assessment & Plan (07/14/2018 12:51 PM SLIP BRIDGE OPERATOR): She presented with anemia down to 6.8 in setting of almost a month of dark and maroon stools. These have cleared in the week before admission, and she has no active signs of bleeding currently. GI would like her to be off ASA/Plavix for at least five days at this would otherwise limit her endoscopic intervention options. However given her severe PVD, vascular surgery recommends bridging with a heparin drip, so she will need to remain here until her scopes on 07/16. Her hemoglobin has been fairly stable here with a very slow downtrend since transfusion. -Transfuse for Hgb >7 -Transitioned PPI to PO -Plan dual scopes on 07/16 after five days off ASA/Plavix, bridging with heparin drip until then -Will initiate 2-day prep starting tonight as she reports she is fairly constipated -Clear liquids tomorrow, will need new bowel prep ordered for tomorrow night Assessment & Plan (07/13/2018 5:22 PM SLIP BRIDGE OPERATOR): She presented with anemia down to 6.8 in setting of almost a month of dark and maroon stools. These have evidently cleared in the last week, and she has no active signs of bleeding currently. GI would like her to be off ASA/Plavix for at least five days at this would otherwise limit her intervention options. However given her severe PVD, vascular surgery recommends bridging with a heparin drip, so she will need to remain here until her scopes on 07/16. -Transfuse for Hgb >7 -Transition PPI to PO -Plan dual scopes on 07/16 after five days off ASA/Plavix, bridging with heparin drip until then Assessment & Plan (07/12/2018 6:38 PM SLIP BRIDGE OPERATOR): She presented with anemia down to 6.8 in setting of almost a month of dark and maroon stools. These have evidently cleared in the last week, and she has no active signs of bleeding currently. GI would like her to be off ASA/Plavix for at least five days at this would otherwise limit her intervention options. However given her severe PVD, vascular surgery recommends bridging with a heparin drip, so she will need to remain here until her scopes on 07/16. -Transfuse for Hgb >7 -PPI BID, will transition to PO pending hemoglobin stability -Plan dual scopes on 07/16 after five days off ASA/Plavix, bridging with heparin drip until then Assessment & Plan (07/11/2018 5:49 AM SLIP BRIDGE OPERATOR): Normocytic anemia of 6.8 in setting of recent dark (maroon and black stools) since early May c/f blood loss anemia and possible upper GIB. Per patient stools have now cleared for the most part and she is HD stable. -has been ordered for 1u prbc -f/u post transfusion CBC -PPI BID -iron studies ordered -PIV x [address] -currently NPO -GI c/s for possible upper GI -no h/o C-scopes in the past but known diverticulosis per previous imaging Palpitations 07/11/2018 Assessment & Plan (07/19/2018 12:08 PM SLIP BRIDGE OPERATOR): Symptomatically improved after transfusion. Likely 2/2 stress of anemia. - Discontinue telemetry Assessment & Plan (07/18/2018 12:43 PM SLIP BRIDGE OPERATOR): Symptomatically improved after transfusion. Likely 2/2 stress of anemia. - Discontinue telemetry Assessment & Plan (07/17/2018 2:30 PM SLIP BRIDGE OPERATOR): Symptomatically improved after transfusion. Likely 2/2 stress of anemia Assessment & Plan (07/16/2018 11:00 AM SLIP BRIDGE OPERATOR): Symptomatically improved after transfusion. Likely 2/2 stress of anemia Assessment & Plan (07/15/2018 2:11 PM SLIP BRIDGE OPERATOR): Symptomatically improved after transfusion. She is having runs of NSVT on telemetry for which she might benefit from a beta-ubaldo. Assessment & Plan (07/14/2018 12:52 PM SLIP BRIDGE OPERATOR): Symptomatically improved after transfusion. She is having runs of NSVT on telemetry for which she might benefit from a beta-ubaldo. Assessment & Plan (07/13/2018 5:25 PM SLIP BRIDGE OPERATOR): Symptomatically improved after transfusion. She is having runs of NSVT on telemetry for which she might benefit from a beta-ubaldo. Assessment & Plan (07/11/2018 5:51 AM SLIP BRIDGE OPERATOR): H/o PVCs s/p RF ablation; not on BB. Reports ongoing palpitations w/o associated CP. EKG as above. -monitor on tele -correct anemia -trend troponins as above, check TSH Severe malnutrition 07/11/2018 Assessment & Plan (05/28/2024 6:22 PM CDT): RD consulted. Supplements ordered Gastrointestinal hemorrhage 07/10/2018 Overview (07/15/2018): Added automatically from request for surgery [id number] Hyperlipidemia 11/10/2016 Abnormal results of pulmonary function studies 0 09/15/2016 Ventricular premature depolarization 09/15/2016 Bradycardia 09/08/2016 Shortness of breath 09/08/2016 Atrial paroxysmal tachycardia 08/31/2016 Premature atrial contraction 08/31/2016 Septic shock 07/02/2016 Stenosis of carotid artery 08/27/2014 Right renal artery stenosis 08/14/2014 Abdominal aortic aneurysm 06/09/2014 Atherosclerosis of coronary artery bypass graft(s) without angina pectoris 10/15/1997 Assessment & Plan (01/13/2025 8:32 AM CDT): - Continue home dose of aspirin (325 mg daily) - Not on statin due to history of muscle pains in the past Assessment & Plan (01/12/2025 9:19 AM CDT): - Continue home dose of aspirin (325 mg daily) - Not on statin due to history of muscle pains in the past Assessment & Plan (01/11/2025 8:48 AM CDT): - Continue home dose of aspirin (325 mg daily) - Not on statin due to history of muscle pains in the past Assessment & Plan (01/10/2025 6:28 PM CDT): - Continue home dose of aspirin (325 mg daily) - Not on statin due to history of muscle pains in the past Assessment & Plan (11/27/2024 2:34 PM CDT): Continue ASA 325, not currently on a statin (muscle pains) Assessment & Plan (11/26/2024 11:50 AM CDT): Continue ASA 325, not currently on a statin (muscle pains) Assessment & Plan (11/25/2024 11:42 AM CDT): Continue ASA 325, not currently on a statin (muscle pains) Assessment & Plan (11/24/2024 9:44 AM CDT): Continue ASA 325, not currently on a statin (muscle pains) Assessment & Plan (11/23/2024 10:33 AM CDT): Continue ASA 325, not currently on a statin (muscle pains) Assessment & Plan (11/22/2024 5:54 PM CDT): Continue ASA 325, not currently on a statin (muscle pains) Assessment & Plan (11/22/2024 5:33 PM CDT): Continue ASA 325 nightly, not on statin (muscle pains) Assessment & Plan (05/27/2024 8:47 PM CDT): S/p CABG Assessment & Plan (07/19/2018 12:08 PM SLIP BRIDGE OPERATOR): CAD s/p CABG, currently without chest pain. Serial troponins were negative. -Continue Zetia - ASA restarted - Discontinue plavix on elquis Assessment & Plan (07/18/2018 12:43 PM SLIP BRIDGE OPERATOR): CAD s/p CABG, currently without chest pain. Serial troponins were negative. -Continue Zetia - ASA restarted - Discontinue plavix on elquis Assessment & Plan (07/17/2018 2:31 PM SLIP BRIDGE OPERATOR): CAD s/p CABG, currently without chest pain. Serial troponins were negative. -Continue Zetia - ASA restarted - Discontinue plavix as no more cardiac indication for it - Planning to start eliquis instead Assessment & Plan (07/16/2018 11:00 AM SLIP BRIDGE OPERATOR): CAD s/p CABG, currently without chest pain. Serial troponins were negative. -Continue Zetia -Heparin drip as noted elsewhere in place of ASA/Plavix Assessment & Plan (07/15/2018 2:08 PM SLIP BRIDGE OPERATOR): CAD s/p CABG, currently without chest pain. Serial troponins were negative. -Continue Zetia -Heparin drip as noted elsewhere in place of ASA/Plavix Assessment & Plan (07/14/2018 12:51 PM SLIP BRIDGE OPERATOR): CAD s/p CABG, currently without chest pain. Serial troponins were negative. -Continue Zetia -Heparin drip as noted elsewhere in place of ASA/Plavix Assessment & Plan (07/13/2018 5:22 PM SLIP BRIDGE OPERATOR): CAD s/p CABG, currently without chest pain. -Continue Zetia -Heparin drip as noted elsewhere in place of ASA/Plavix -Serial troponins were negative Assessment & Plan (07/12/2018 6:38 PM SLIP BRIDGE OPERATOR): CAD s/p CABG, currently without chest pain. Holding ASA/Plavix as noted elsewhere. -Continue Zetia -Serial troponins were negative Assessment & Plan (07/11/2018 5:42 AM SLIP BRIDGE OPERATOR): CAD s/p CABG; currenlty w/o chest pain but endorsing palpitations. -ASA and Plavix on hold -resume Zetia as above -recheck lipids and a1c -EKG with new TWI in II/III/aVF; initial troponin neg -trend troponins, monitor on tele Hypertension, essential 10/15/1997 Assessment & Plan (01/13/2025 8:32 AM CDT): - c/w hydralazine, nifedipine, Lasix Assessment & Plan (01/12/2025 9:19 AM CDT): - c/w hydralazine, nifedipine, Lasix Assessment & Plan (01/11/2025 6:23 PM CDT): - c/w hydralazine, nifedipine, Lasix Assessment & Plan (01/10/2025 6:28 PM CDT): - Okay to continue patient's home medication regimen including hydralazine, nifedipine, Lasix Assessment & Plan (11/27/2024 3:01 PM CDT): Continue hydralazine 50 TID, losartan 50 daily, continue nifedipine xr 90 mg Recommended increasing hydralazine dose to 100 t.i.d. but patient prefers talking to her outpatient Nephrology before increasing hydralazine dose. Assessment & Plan (11/26/2024 11:50 AM CDT): Continue hydralazine 50 TID, losartan 50 daily, continue nifedipine Assessment & Plan (11/25/2024 11:42 AM CDT): Continue hydralazine 50 TID, losartan 50 daily, continue nifedipine Assessment & Plan (11/24/2024 9:44 AM CDT): Continue hydralazine 50 TID, losartan 50 daily, continue nifedipine Assessment & Plan (11/23/2024 10:33 AM CDT): Continue hydralazine 50 TID, losartan 50 daily, continue nifedipine Assessment & Plan (11/22/2024 5:54 PM CDT): Continue hydralazine 50 TID, losartan 50 daily Nifedipine on hold given c/f ileus Assessment & Plan (06/03/2024 2:11 PM SLIP BRIDGE OPERATOR): Prior to admission, the patient was on Coreg 6.25 BID, hydralazine 50mg BID, nifedipine 90mg nightly and losartan 50mg daily on non-dialysis days. Due to uncontrolled blood pressures especially at night, the regimen was adjusted to hydralazine 50 TID, nifedipine 90 nightly, and losartan 50 mg daily. Due to concomitant bradycardia, Coreg was held Given episodic hypertension obtained pheochromocytoma workup with plasma and urine metanephrines, collected and in process at time of discharge Assessment & Plan (06/13/2022 2:39 PM SLIP BRIDGE OPERATOR): Chronic stable hypertension be controlled with medications. Continue monitoring blood pressures and taking medications as per PCP. Assessment & Plan (07/19/2018 12:08 PM SLIP BRIDGE OPERATOR): She has a fairly wide pulse pressure so despite high systolic pressures, her actual MAP is not particularly high. She is now starting to be hypertensive - restarting lisinopril Assessment & Plan (07/18/2018 12:42 PM SLIP BRIDGE OPERATOR): She has a fairly wide pulse pressure so despite high systolic pressures, her actual MAP is not particularly high. She is not currently tachycardic or hypertensive - Continue holding lisinopril Assessment & Plan (07/17/2018 2:30 PM SLIP BRIDGE OPERATOR): She has a fairly wide pulse pressure so despite high systolic pressures, her actual MAP is not particularly high. She may benefit from a beta-ubaldo for her NSVT, but pulse might be too low. NVST has also resolved - Continue lisinopril though might remove if pressures become too low Assessment & Plan (07/16/2018 11:00 AM SLIP BRIDGE OPERATOR): She has a fairly wide pulse pressure so despite high systolic pressures, her actual MAP is not particularly high. She may benefit from a beta-ubaldo for her NSVT, but pulse might be too low. NEST has also resolved -Restarting lisinopril this AM. Assessment & Plan (07/15/2018 2:11 PM SLIP BRIDGE OPERATOR): She has a fairly wide pulse pressure so despite high systolic pressures, her actual MAP is not particularly high. She may benefit from a beta-ubaldo for her NSVT, but herbal in between 62 and 70 and this might be too low. -Holding lisinopril in setting of recent contrast load -If heart rate improves in the next 1-2 days, would favor starting a beta- ubaldo instead of her MAX-inhibitor Assessment & Plan (07/14/2018 12:52 PM SLIP BRIDGE OPERATOR): She has a fairly wide pulse pressure so despite high systolic pressures, her actual MAP is not particularly high. She may benefit from a beta-ubaldo for her NSVT, but she is also fairly bradycardic to the 60s. -Holding lisinopril in setting of recent contrast load -If heart rate improves in the next 1-2 days, would favor starting a beta- ubaldo instead of her MAX-inhibitor Assessment & Plan (07/13/2018 5:26 PM SLIP BRIDGE OPERATOR): She has a fairly wide pulse pressure so despite high systolic pressures, her actual MAP is not particularly high. She may benefit from a beta-ubaldo for her NSVT. -Holding lisinopril in setting of recent contrast load -Will discuss beta-ubaldo versus ACEi Assessment & Plan (07/12/2018 6:39 PM SLIP BRIDGE OPERATOR): She has a fairly wide pulse pressure. -Holding lisinopril in setting of recent contrast load, restart if creatinine is stable Assessment & Plan (07/11/2018 5:50 AM SLIP BRIDGE OPERATOR): Hold home lisinopril given low hemoglobin although will likely be able to start in AM. 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 Past Treatment and Therapy Plans Oncology Chemotherapy Treatment Plan Name Start Date Discontinue Date Treatment Medications Discontinue Reason Plan Provider Cycles Octreotide 28 Day Cycles - Carcinoid 05/28/20 24 07/13/2024 octreotide (SandoSTATIN LAR) Provider Discretion Jair Waterman MD 1 of 5 cycles completed Radiation Treatments * Course [id number] - 07/07/2024 Treatment Period Energy Fraction Dose Fractions Total Dose Plans Planned SBRT GISSEL LUNG 07/01/2024 - 07/07/2024 1,800 3 / 5,400 Reference Points Delivered SBRT [id number] 07/01/2024 - 07/07/2024 5,400 Lifetime Dose Tracking * Chemical Lifetime Dose Automatic Entry Manual Entr y Fluoro Time 15.894 minutes 15.794 minutes 0.1 minutes Air kerma at the reference point (Ka,r) 63.627 mGy 5 9.627 mGy 4 mGy DLP 2,036 mGycm 2,036 mGycm 0 mGycm DAP 0.08 Gy-cm2 0 Gy-cm2 0.08 Gy-cm2 Resolved Problems Problem Noted Date Diagnosed Date Resolved Date Goals of care, counseling/discussion 05/27/2024 12/30/2024 Adenocarcinoma of upper lobe of left lung 03/18/2024 05/27/2024 Hx of CABG 07/19/2022 05/27/2024
--- OUTSIDE RECORDS SUMMARY | 2025-05-29 16:12 | XMS_ITS | Encounter Summary ---
Author Organization [facility] Healthcare Address [address] [place] [address] Care Team Providers Care Revenue Cycle Analyst Name Role Phone Radha Murphy MD Primary Care Provider + Yoanna Dove MD PhD Unavailable [phone] Jair Waterman MD Unavailable [phone] Unknown, Notinfile Primary Care Provider Unavail able Serina Pedroza MD Unavailable [phone] Encounter Details Date Type Department Care Team (Late st Contact Info) Description 04/20/2022 Telephone [facility] [id number] [place] [address] Radha Corey RN Social History Tobacco Use Types Packs/Day Years Used Date Smoking Tobacco: Former Cigarettes 2 28 1 970 - 1998 Smokeless Tobacco: Never Alcohol Use Standard Drinks/Week Comments Never 0 (1 standard drink = 0.6 oz pur e alcohol) AUDIT-C Answer Date Recorded Q1: How often do you have a drink containing alcohol? Never 04/20/2022 Q2: How many drinks containi ng alcohol do you have on a typical day when you are drinking? Patient does not drink Q3: How often do you have si x or more drinks on one occasion? Never 04/20/2022 Comments No Sex and Gender Information Value Date Recorded Sex Assigned at Not on file Legal Sex Female 3:32 PM CAUSTIC PUMP OPERATOR Gender Identity Not on file Sexual Orientation Not on file Occupation Industry Job Start Date Job End Date disability Not on file Not on file Not on file documented as of this encounter Functional Status * AUDIT-C Score Answer Date of Assessment Author 0 04/20/2022 8:16 AM CDT Sherrill Paiz RN * Question Answer Date of Assessment Author Q1: How often do you have a drink containing alcohol? Never 04/20/2022 8:16 AM CDT Hima Paiz RN Q2: How many drinks containing alcohol do you have on a typical day when you are drinking? Patient does not drink 04/20/2022 8:16 AM CDT Sherrill Paiz RN Q3: How often do you have six or more drinks on one occasion? Never 04/20/2022 8:16 AM CDT Hima Paiz RN documented as of this encounter Plan of Treatment Not on file documented as of this encounter Visit Diagnoses Not on filedocumented in this encounter Additional Health Concerns Infection Onset Date Last Indicated Resolved Time C. difficile suspected 05/27/2024 05/27/202405/30 9:42 AM CDT documented as of this encounter Care Teams Revenue Cycle Analyst Relationship Specialty Start Date End Date Radha Murphy MD [address] [place] [address] PCP - General Family Medicine 11/13/18 06/11/24 Unknown, Notinfile PCP - General 06/12/24 Yoanna Dove MD PhD [address] [place] [address] Surgeon Vascular Surgery 12/09/18 Jair Waterman MD [address] [place] [address] Consulting Physician Medical Oncology 05/29/24 Serina Pedroza MD [address] [facility] [place] [address] [place] [address] Radiation Oncologist Radiation Oncology 07/14/24 documented as of this encounter
--- OUTSIDE RECORDS SUMMARY | 2025-05-29 16:12 | XMS_ITS ---
Author Organization [facility] al Address [address] [place] [address] Care Team Providers Care Embroiderer Hand Name Role Phone Yoanna Dove MD PhD Unavailable [phone] Jair Waterman MD Unavailable [phone] Unknown, Notinfile Primary Care Provider Unavail able Serina Pedroza MD Unavailable [phone] Dialysis Access Sites Type Status Location Placement Date Removal Da te Hemodialysis Cath Double Active Right Breast - Upper 0 10/28/2020 Procedures Procedure Name Priority Date/Time Associated Diagnosis Comments EGFR Routine 03/11/2025 12:36 PM CDT Neuroendocrine carcinoma of small bowel (HCC) DIFFERENTIAL AUTO Routine 03/11/2025 12: 36 PM CDT Neuroendocrine carcinoma of small bowel (HCC) COMPREHENSIVE METABOLIC PANEL Routine 03/11/2025 12:36 PM CDT Neuroendocrine carcinoma of small bowel (HCC) PREALBUMIN Routine 03/11/2025 12:36 PM CDT Neuroendocrine carcinoma of small bowel (HCC) CBC WITH AUTO DIFFERENTIAL Routine 03/11/2025 12:36 PM CDT Neuroendocrine carcinoma of small bowel (HCC) FL FLUOROSCOPY < 1 HOUR IP Routine 03/05/2025 12:02 PM CDT PYELOGRAM - RETROGRADE 03/05/2025 11:31 AM CDT Obstruction of right ureter Case Notes C-ARM CYSTOSCOPY 03/05/2025 11:31 AM CDT Obstruction of right ureter Case Notes C-ARM EXCHANGE STENT - URETERAL 03/05/2025 11:31 AM CDT Obstruction of right ureter Case Notes C-ARM POC BLOOD GAS AND CHEMISTRIES, VENOUS Routine 03/05/2025 11:10 AM CDT HEPATITIS PANEL, ACUTE STAT 04/21/2022 11:19 AM CDT COLONOSCOPY 07/16/2018 12:21 PM SHOT EXAMINER DIAGNOSTIC MAMMOGRAM BILATERAL W MIKHAIL Routine 06/22/2015 11:21 AM SHOT EXAMINER from Last 3 Months or Most Recently Relevant to Health Maintenance Allergies Active Allergy Reactions Criticality Noted Date Comments Chlorhexidine Itching Low 01/12/2025 Ciprofloxacin Other (See comments) Low Pt said she does not want this med due to hearing that it causes aneurysms and she has one Iodinated Contrast Media Itching,Rash Medium Fentanyl Shortness of breath High Per pt stops her breathing Hydromorphone Other (See comments),Dizziness Low Reaction: Pt felt weird Nitrofurantoin Diarrhea Low 01/26/2020 Iagxrzr-Abq-Fmt Reductase Inhibitors Muscle pain Medium 07/19/2022 Multiple statins Medications polyethylene glycol (MIRALAX) 17 gram packet Take 1 packet (17 g total) by mouth as needed for constipation Active furosemide (LASIX) 40 mg tablet Take 1 tablet (40 mg total) by mouth 2 (two) times a day 01/01/20 21 Active aspirin 325 mg tablet Take 1 tablet (325 mg total) by mouth nightly Active acetaminophen (TYLENOL) 325 mg tablet Take 2 tablets (650 mg total) by mouth every 4 (four) hours as needed for pain 30 tablet 04/23/20 22 Active gabapentin (NEURONTIN) 300 mg capsule Take 1 capsule (300 mg total) by mouth nightly 04/25/20 22 Active clonazePAM (KlonoPIN) 0.5 mg disintegrating tablet Take 1 tablet (0.5 mg total) by mouth 2 (two) times a day as needed for anxiety Active losartan (COZAAR) 50 mg tablet Take 1 tablet (50 mg total) by mouth daily 60 tablet 06/04/20 24 025 Active Additional Information Patient taking differently:50 mg oralEvery morning, Does not take on Sunday or Fridays, Informant: Self, Reported on 03/05/2025 NIFEdipine (PROCARDIA XL/ADALAT CC) 90 mg 24 hr tablet Take 1 tablet (90 mg total) by mouth daily 30 tablet 11/29/19 25 026 Active Additional Information Patient taking differently:90 mg oralNightly, Indications: Blood Pressure, Informant: Self, Reported on 03/05/[address] (PROTONIX) 40 mg EC tablet Take 1 tablet (40 mg total) by mouth daily 30 tablet 11/29/19 25 026 Active Additional Information Patient taking differently:40 mg oralEvery morning, Informant: Self, Reported on 03/05/2025 ondansetron ODT (ZOFRAN-ODT) 8 mg disintegrating tablet Take 1 tablet (8 mg total) by mouth every 8 (eight) hours as needed for nausea or vomiting 20 tablet 11/28/19 25 Active docusate sodium (DOK) 100 mg tablet Take 1 tablet (100 mg total) by mouth 2 (two) times a day as needed for constipation Active hydrALAZINE (APRESOLINE) 50 mg tablet Take 1.5 tablets (75 mg total) by mouth 3 (three) times a day 01/14/20 25 026 Active predniSONE (DELTASONE) 50 mg tablet Take 50mg 13h before, 50mg 7h before, and 50mg 1h before CT o 3 tablet 02/05/20 25 Active Additional Information Patient taking differently: 50 mg oral As needed, ct scan, Take 50mg 13h before, 50mg 7h before, and 50mg 1h before CT o, Informant: Self, Reported on 03/05/2025 diphenhydrAMINE (BENADRYL) 50 mg capsule Take 1 capsule (50 mg total) by mouth once for 1 dose [address] 1 capsule 02/05/20 25 Active hydrALAZINE (APRESOLINE) 25 mg tablet Take 1 tablet (25 mg total) by mouth 3 (three) times a day 02/12/20 25 Active syringe with needle 1 mL 28 gauge x 1/2 syringeIndication s:Neuroendocrine carcinoma of small bowel (HCC),Diarrhea, unspecified type 1 Syringe 3 (three) times a day as needed (Syringes to use for pre-filled short acting Octreotide) 9 each 05/27/20 25 Active octreotide (SandoSTATIN) 100 mcg/mL injectionIndicati ons:Neuroendocrin e carcinoma of small bowel (HCC),Diarrhea, unspecified type Inject 1 mL (100 mcg total) under the skin 3 (three) times a day as needed (Diarrhea) 9 mL 05/27/20 25 Active syringe with needle 1 mL 28 gauge x 1/2 syringeIndication s:Neuroendocrine carcinoma of small bowel (HCC),Diarrhea, unspecified type 1 Syringe 3 (three) times a day as needed (Syringes to use for pre-filled short acting Octreotide) 9 each 06/10/20 24 025 Disconti nued(Reo rder) octreotide (SandoSTATIN) 100 mcg/mL injectionIndicati ons:Neuroendocrin e carcinoma of small bowel (HCC),Diarrhea, unspecified type INJECT 1 ML SUBCUTANEOUSLY 3 TIMES DAILY NEEDED FOR DIARRHEA 9 mL 04/15/20 25 025 Disconti nued(Reo rder) Active Problems Problem Noted Date Diagnosed Date [...] Adenocarcinoma of left lung 05/27/2024 Overview (06/11/2024): Hospital #: [id number] Taken:05/06/2024 Received:05/06/2024 Reported: 05/08/2024 Patient Type: [facility] Ancillary Service: Pulmonary Location: Physician(s): Luiz [...] apical pulmonary mass on PET/CT 09/30/24 - [facility] c/s Assessment & Plan (06/03/2024 2:13 PM SHOT EXAMINER): Follows with Dr. 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 - serotonin serum 367, chromogranin A - 399 - urine 5 HIAA pending - holding octreotide as no BM for over 24 hrs Generalized weakness 05/27/2024 Assessment & Plan (06/03/2024 2:16 PM SHOT EXAMINER): 2/2 dehydration and diarrhea discussed elsewhere PT - home with family/home with initial 24 hour supervision/home. Daughter will take home and supervise initially at home while patient regains strength Atrial fibrillation 05/27/2024 Assessment & Plan (06/03/2024 2:16 PM SHOT EXAMINER): S/p ablation. 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 Waterman. Suspicion for a neuroendocrine neoplasm (consensus at [facility]) based on episodes of diarrhea and index mesenteric mass, Dotatate avid and FDG negative. Not amenable to surgery or biopsy by HPB or IR. Assessment & Plan (11/26/2024 11:50 AM CDT): Follows Roque Waterman. Suspicion for a neuroendocrine neoplasm (consensus at [facility]) based on episodes of diarrhea and index mesenteric mass, Dotatate avid and FDG negative. Not amenable to surgery or biopsy by [facility] or IR. - [facility] c/s Assessment & Plan (11/25/2024 11:42 AM CDT): Follows Roque Waterman. Suspicion for a neuroendocrine neoplasm (consensus at [facility]) based on episodes of diarrhea and index mesenteric mass, Dotatate avid and FDG negative. Not amenable to surgery or biopsy by [facility] or IR. - [facility] onc c/s Assessment & Plan (11/24/2024 9:44 AM CDT): Follows Roque Waterman. Suspicion for a neuroendocrine neoplasm (consensus at [facility]) based on episodes of diarrhea and index mesenteric mass, Dotatate avid and FDG negative. Not amenable to surgery or biopsy by [facility] or IR. - [facility] onc c/s Assessment & Plan (11/23/2024 10:33 AM CDT): Follows w/Dr. Waterman. Suspicion for a neuroendocrine neoplasm (consensus at [facility]) based on episodes of diarrhea and index mesenteric mass, Dotatate avid and FDG negative. Not amenable to surgery or biopsy by [facility] or IR. - [facility] onc c/s Assessment & Plan (11/22/2024 5:54 PM CDT): Follows w/Dr. Waterman. Suspicion for a neuroendocrine neoplasm (consensus at [facility]) based on episodes of diarrhea and index [...] (06/12/2022): Added automatically from request for surgery [id number] Assessment & Plan (01/13/2025 8:32 AM CDT): [...] BID Assessment & Plan (06/03/2024 2:11 PM SHOT EXAMINER): HD on Mondays and Fridays - nephrology following; s/p HD on 05/30, 06/02 - PTH 196 Assessment & Plan (06/13/2022 2:47 PM SHOT EXAMINER): Patient seen today for malfunctioning subclavian Perma [...] (11/15/2018): Added automatically from request for surgery [id number] Sciatica 07/11/2018 Assessment & Plan (07/11/2018 4:12 AM SHOT EXAMINER): With MRI spine earlier this year w/o evidence of central canal stenosis. Seen by orthopedic surgery for this and started on Celebrex. Peripheral neuropathy 07/11/2018 Assessment & Plan (05/28/2024 6:23 PM CDT): On gabapentin 300 nightly Assessment & Plan (07/11/2018 5:50 AM SHOT EXAMINER): Peripheral vascular neuropathy. Resume gabapentin. Check B12. [...] nightly Assessment & Plan (07/19/2018 12:07 PM SHOT EXAMINER): She has a long vascular history s/p aortobifemoral and fem-fem bypass with recurrent claudication s/p DRAFTER PATENT stent x 2 to R aortofem limb [...] BID. Assessment & Plan (07/18/2018 12:40 PM SHOT EXAMINER): She has a long vascular history s/p aortobifemoral and fem-fem bypass with recurrent claudication s/p DRAFTER PATENT stent x 2 to R aortofem limb [...] will eventually need outpatient follow-up with Dr. Derrell mcdaniel, stay on aspirin and may discontinue Plavix - Also vascular recommends Eliquis 5 BID. Assessment & Plan (07/17/2018 2:30 PM SHOT EXAMINER): She has a long vascular history s/p aortobifemoral and fem-fem bypass with recurrent claudication s/p DRAFTER PATENT stent x 2 to R aortofem limb [...] eventually need outpatient follow-up with Dr. Dove -[facility], is okay to stay on aspirin and may discontinue Plavix if no heart indication after GI workup - Also vascular recommends starting Eliquis 5 BID. Assessment & Plan (07/16/2018 10:57 AM SHOT EXAMINER): She has a long vascular history s/p aortobifemoral and fem-fem bypass with recurrent claudication s/p DRAFTER PATENT stent x 2 to R aortofem limb [...] procedure Assessment & Plan (07/15/2018 2:08 PM SHOT EXAMINER): She has a long vascular history s/p aortobifemoral and fem-fem bypass with recurrent claudication s/p DRAFTER PATENT stent x 2 to R aortofem limb [...] procedure. Assessment & Plan (07/14/2018 12:52 PM SHOT EXAMINER): She has a long vascular history s/p aortobifemoral and fem-fem bypass with recurrent claudication s/p DRAFTER PATENT stent x 2 to R aortofem limb [...] drip Assessment & Plan (07/13/2018 5:26 PM SHOT EXAMINER): She has a long vascular history s/p aortobifemoral and fem-fem bypass with recurrent claudication s/p DRAFTER PATENT stent x 2 to R aortofem limb [...] drip Assessment & Plan (07/12/2018 6:40 PM SHOT EXAMINER): She has a long vascular history s/p aortobifemoral and fem-fem bypass with recurrent claudication s/p DRAFTER PATENT stent x 2 to R aortofem limb [...] drip Assessment & Plan (07/11/2018 5:37 AM SHOT EXAMINER): H/o aortobifemoral and fem-fem bypass with recurrent claudication s/p DRAFTER PATENT stent x 2 to R aortofem limb [...] 07/11/2018 Assessment & Plan (07/19/2018 12:08 PM SHOT EXAMINER): Patient with recurrent UTI over the past 3 years and recent admission in April for pyelo. Has history of chronic right ureteral obstruction and undergoes yearly stent exchanges with Dr. Carney here. -Urine culture with no growth, CTX discontinued Assessment & Plan (07/18/2018 12:43 PM SHOT EXAMINER): Patient with recurrent UTI over the past 3 years and recent admission in April for pyelo. Has history of chronic right ureteral obstruction and undergoes yearly stent exchanges with Dr. Carney here. -Urine culture with no growth, CTX discontinued Assessment & Plan (07/17/2018 2:31 PM SHOT EXAMINER): Patient with recurrent UTI over the past 3 years and recent admission in April for pyelo. Has history of chronic right ureteral obstruction and undergoes yearly stent exchanges with Dr. Carney here. -Urine culture with no growth, CTX discontinued Assessment & Plan (07/16/2018 11:01 AM SHOT EXAMINER): Patient with recurrent UTI over the past 3 years and recent admission in April for pyelo. Has history of chronic right ureteral obstruction and undergoes yearly stent exchanges with Dr. Carney here. -Urine culture with no growth, CTX discontinued Assessment & Plan (07/15/2018 2:09 PM SHOT EXAMINER): Patient with recurrent UTI over the past 3 years and recent admission in April for pyelo. Has history of chronic right ureteral obstruction and undergoes yearly stent exchanges with Dr. Carney here. -Urine culture with no growth, CTX discontinued Assessment & Plan (07/12/2018 6:40 PM SHOT EXAMINER): Patient with recurrent UTI over the past 3 years and recent admission in April for pyelo. Has history of chronic right ureteral obstruction and undergoes yearly stent exchanges with Dr. Carney here. -Urine culture with no growth, CTX discontinued Assessment & Plan (07/11/2018 5:45 AM SHOT EXAMINER): Patient with recurrent UTI over the past [...] 07/11/2018 Assessment & Plan (07/19/2018 12:08 PM SHOT EXAMINER): She presented with anemia down to 6.8 [...] daily Assessment & Plan (07/18/2018 12:41 PM SHOT EXAMINER): She presented with anemia down to 6.8 [...] pill. Assessment & Plan (07/17/2018 2:33 PM SHOT EXAMINER): She presented with anemia down to 6.8 [...] PPI Assessment & Plan (07/16/2018 10:58 AM SHOT EXAMINER): She presented with anemia down to 6.8 [...] problems. Assessment & Plan (07/15/2018 2:09 PM SHOT EXAMINER): She presented with anemia down to 6.8 [...] evening. Assessment & Plan (07/14/2018 12:51 PM SHOT EXAMINER): She presented with anemia down to 6.8 [...] night Assessment & Plan (07/13/2018 5:22 PM SHOT EXAMINER): She presented with anemia down to 6.8 [...] then Assessment & Plan (07/12/2018 6:38 PM SHOT EXAMINER): She presented with anemia down to 6.8 [...] then Assessment & Plan (07/11/2018 5:49 AM SHOT EXAMINER): Normocytic anemia of 6.8 in setting of [...] 07/11/2018 Assessment & Plan (07/19/2018 12:08 PM SHOT EXAMINER): Symptomatically improved after transfusion. Likely 2/2 stress of anemia. - Discontinue telemetry Assessment & Plan (07/18/2018 12:43 PM SHOT EXAMINER): Symptomatically improved after transfusion. Likely 2/2 stress of anemia. - Discontinue telemetry Assessment & Plan (07/17/2018 2:30 PM SHOT EXAMINER): Symptomatically improved after transfusion. Likely 2/2 stress of anemia Assessment & Plan (07/16/2018 11:00 AM SHOT EXAMINER): Symptomatically improved after transfusion. Likely 2/2 stress of anemia Assessment & Plan (07/15/2018 2:11 PM SHOT EXAMINER): Symptomatically improved after transfusion. She is having runs of NSVT on telemetry for which she might benefit from a beta-ubaldo. Assessment & Plan (07/14/2018 12:52 PM SHOT EXAMINER): Symptomatically improved after transfusion. She is having runs of NSVT on telemetry for which she might benefit from a beta-ubaldo. Assessment & Plan (07/13/2018 5:25 PM SHOT EXAMINER): Symptomatically improved after transfusion. She is having runs of NSVT on telemetry for which she might benefit from a beta-ubaldo. Assessment & Plan (07/11/2018 5:51 AM SHOT EXAMINER): H/o PVCs s/p RF ablation; not on BB. Reports ongoing palpitations w/o associated CP. EKG as above. -monitor on tele -correct anemia -trend troponins as above, check TSH Severe malnutrition 07/11/2018 Assessment & Plan (05/28/2024 6:22 PM CDT): RD consulted. Supplements ordered Gastrointestinal hemorrhage 07/10/2018 Overview (07/15/2018): Added automatically from request for surgery [id number] Hyperlipidemia 11/10/2016 Abnormal results of pulmonary function [...] CABG Assessment & Plan (07/19/2018 12:08 PM SHOT EXAMINER): CAD s/p CABG, currently without chest pain. Serial troponins were negative. -Continue Zetia - ASA restarted - Discontinue plavix on elquis Assessment & Plan (07/18/2018 12:43 PM SHOT EXAMINER): CAD s/p CABG, currently without chest pain. Serial troponins were negative. -Continue Zetia - ASA restarted - Discontinue plavix on elquis Assessment & Plan (07/17/2018 2:31 PM SHOT EXAMINER): CAD s/p CABG, currently without chest pain. Serial troponins were negative. -Continue Zetia - ASA restarted - Discontinue plavix as no more cardiac indication for it - Planning to start eliquis instead Assessment & Plan (07/16/2018 11:00 AM SHOT EXAMINER): CAD s/p CABG, currently without chest pain. Serial troponins were negative. -Continue Zetia -Heparin drip as noted elsewhere in place of ASA/Plavix Assessment & Plan (07/15/2018 2:08 PM SHOT EXAMINER): CAD s/p CABG, currently without chest pain. Serial troponins were negative. -Continue Zetia -Heparin drip as noted elsewhere in place of ASA/Plavix Assessment & Plan (07/14/2018 12:51 PM SHOT EXAMINER): CAD s/p CABG, currently without chest pain. Serial troponins were negative. -Continue Zetia -Heparin drip as noted elsewhere in place of ASA/Plavix Assessment & Plan (07/13/2018 5:22 PM SHOT EXAMINER): CAD s/p CABG, currently without chest pain. -Continue Zetia -Heparin drip as noted elsewhere in place of ASA/Plavix -Serial troponins were negative Assessment & Plan (07/12/2018 6:38 PM SHOT EXAMINER): CAD s/p CABG, currently without chest pain. Holding ASA/Plavix as noted elsewhere. -Continue Zetia -Serial troponins were negative Assessment & Plan (07/11/2018 5:42 AM SHOT EXAMINER): CAD s/p CABG; currenlty w/o chest pain [...] ileus Assessment & Plan (06/03/2024 2:11 PM SHOT EXAMINER): Prior to admission, the patient was on [...] discharge Assessment & Plan (06/13/2022 2:39 PM SHOT EXAMINER): Chronic stable hypertension be controlled with medications. Continue monitoring blood pressures and taking medications as per PCP. Assessment & Plan (07/19/2018 12:08 PM SHOT EXAMINER): She has a fairly wide pulse pressure so despite high systolic pressures, her actual MAP is not particularly high. She is now starting to be hypertensive - restarting lisinopril Assessment & Plan (07/18/2018 12:42 PM SHOT EXAMINER): She has a fairly wide pulse pressure so despite high systolic pressures, her actual MAP is not particularly high. She is not currently tachycardic or hypertensive - Continue holding lisinopril Assessment & Plan (07/17/2018 2:30 PM SHOT EXAMINER): She has a fairly wide pulse pressure so despite high systolic pressures, her actual MAP is not particularly high. She may benefit from a beta-ubaldo for her NSVT, but pulse might be too low. [facility] has also resolved - Continue lisinopril though might remove if pressures become too low Assessment & Plan (07/16/2018 11:00 AM SHOT EXAMINER): She has a fairly wide pulse pressure so despite high systolic pressures, her actual MAP is not particularly high. She may benefit from a beta-ubaldo for her NSVT, but pulse might be too low. [facility] has also resolved -Restarting lisinopril this AM. Assessment & Plan (07/15/2018 2:11 PM SHOT EXAMINER): She has a fairly wide pulse pressure [...] MAX-inhibitor Assessment & Plan (07/14/2018 12:52 PM SHOT EXAMINER): She has a fairly wide pulse pressure [...] MAX-inhibitor Assessment & Plan (07/13/2018 5:26 PM SHOT EXAMINER): She has a fairly wide pulse pressure so despite high systolic pressures, her actual MAP is not particularly high. She may benefit from a beta-ubaldo for her NSVT. -Holding lisinopril in setting of recent contrast load -Will discuss beta-ubaldo versus ACEi Assessment & Plan (07/12/2018 6:39 PM SHOT EXAMINER): She has a fairly wide pulse pressure. -Holding lisinopril in setting of recent contrast load, restart if creatinine is stable Assessment & Plan (07/11/2018 5:50 AM SHOT EXAMINER): Hold home lisinopril given low hemoglobin although will likely be able to start in AM. Atherosclerosis of [place] of extremities with intermittent claudication, unspecified extremity 12/12/1995 Overview (11/29/2018): Added automatically from request for surgery Immunizations Immunization Administration Dates Next Due Influenza, Quadrivalent, Hig h Dose, Preservative Free, Intrr 04/28/2020 Influenza, Quadrivalent, Spl it, Preservative Free, Intramuscular 05/29/2019 Influenza, Trivalent, High D ose, Split, Preservative Free, Intramuscular 05/29/2018 Pneumococcal Conjugate PCV 13 05/08/2012 Pneumococcal Polysaccharide PPV23 05/29/2018 Tdap 05/29/2018 Social History Tobacco Use Types Packs/Day Years Used Date Smoking Tobacco: Former Cigarettes 2 28 1 970 - 1998 Smokeless Tobacco: Never Tobacco Cessation:Counseling Given: Not Answered Alcohol Use Standard Drinks/Week Comments Never 0 (1 standard drink = 0.6 oz pur e alcohol) [facility] Utilities Answer Date Recorded In the past 12 months has [employer], gas, oil, or water [employer] threatened to shut off services in your [...] answer 01/13/2025 How often do you attend [facility] or buddhism services? Patient unable to answer 01/13/2025 Do you belong to any clubs o r organizations such as congregational groups, unions, fraternal or athletic groups, or [...] any time in the past 12 m [facility], were you homeless or living in a usp (including now)? Patient unable to answer 01/13/2025 [...] on file Legal Sex Female 3:32 PM SHOT EXAMINER Gender Identity Not on file Sexual Orientation Not on file Occupation Industry Job Start Date Job End Date disability Not on file Not on file Not on file Last Filed Vital Signs Vital Sign Reading Time Taken Comments Blood Pressure 124/72 05/20/2025 8:41 AM CDT Pulse 75 05/20/2025 8:41 AM CDT Temperature 36 C (96.8 F) 05/20/2025 8:41 AM CDT Respiratory Rate 18 05/20/2025 8:41 AM CDT Oxygen Saturation 99% 05/20/2025 8:41 AM CDT Inhaled Oxygen Concentration - - Weight 44.2 kg (97 lb 6.4 oz) 05/20/2025 8:41 AM CDT Height 157.5 cm (5' 2) 05/20/2025 8:41 AM CDT Body Mass Index 17.81 05/20/2025 8:41 AM CDT Results * (ABNORMAL) eGFR (03/11/2025 12:36 PM CDT) [facility] eGFR 11(L) >=60 mL/min/1. 73 m2 Comment: Interpretive Data Reference Interval Normal >/= 90 mL/min/1.73m2 Mildly decreased* 60 - 89 mL/min/1.73m2 Mildly to moderately decreased 45 - 59 mL/min/1.73m2 Moderately to severely decreased 30 - 44 mL/min/1.73m2 Severely decreased 15 - 29 mL/min/1.73m2 Kidney Failure < 15 mL/min/1.73m2 *Relative to young adult level Estimated glomerular filtration rate is determined by the 2020 CKD-EPI equation recommended by the National Kid[employer] Foundation (A Unifying Approach to GFR Estimation: Recommendations of the NKF-ASK Task Force on Reassessing the Inclusion of Race in Diagnosing Kidney Disease, JASN 2020). The CKD-EPI equation should not be used for patients with unstable renal function and has not been validated in children and those over 70. Current interpretive data was last reviewed 2021. Blood 03/11/2025 12:3 6 PM CDT 03/11/2025 12:49 PM CDT Clotilde LariosDianeBerta Bai DNP LAB BLOOD ORDERABLE S Final Result [facility] Department of Laboratories [place] [id number] * (ABNORMAL) Differential, auto (03/11/2025 12:36 PM CDT) Neutrophil abs 4.43 1.50 - 6.50 K/cumm Comment:Testing performed by : [facility], [address] [place] [address] Lymphocyte abs 0.77(L) 0.80 - 3.30 K/cumm CER[facility]LENE [facility] Comment:Testing performed by : [facility], [address] [place], [place] [phone] Monocyte abs 0.66 0.20 - 0.80 K/cumm [facility] Comment:Testing performed by : [facility], [address] [place], [place] [phone] Eosinophil abs 0.18 0.00 - 0.50 K/cumm CERJAYLENE [facility] Comment:Testing performed by : [facility], [address] [place] [phone] Basophil abs 0.17(H) 0.00 - 0.10 K/cumm [facility] Comment:Testing performed by : [facility], [address] [place] [phone] Neutrophil pct 71.3 % [facility] Comment: Interpretive Data Percent cell count reference ranges are not reported, since discordance with absolute values may lead to misinterpretation of CBC data. Current Interpretive Data was last revised on 2017. Testing performed by: [facility], [address] [place] [phone] Lymphocyte pct 12.3 % [facility]ERNER [facility] Comment: Interpretive Data Percent cell count reference ranges are not reported, since discordance with absolute values may lead to misinterpretation of CBC data. Current Interpretive Data was last revised on 2017. Testing performed by: [facility], [address] [place] [phone] Monocyte pct 10.7 % LUIS CARLOS [facility] Comment: Interpretive Data Percent cell count reference ranges are not reported, since discordance with absolute values may lead to misinterpretation of CBC data. Current Interpretive Data was last revised on 2017. Testing performed by: [facility], [address] [place] [phone] Eosinophil pct 2.9 % LUIS CARLOS [facility]AVIN Comment: Interpretive Data Percent cell count reference ranges are not reported, since discordance with absolute values may lead to misinterpretation of CBC data. Current Interpretive Data was last revised on 2017. Testing performed by: [facility], [address] [place] [phone] Basophil pct 2.8 % LUIS CARLOS GAVIN Comment: Interpretive Data Percent cell count reference ranges are not reported, since discordance with absolute values may lead to misinterpretation of CBC data. Current Interpretive Data was last revised on 2017. Testing performed by: [facility], [address] [place] [phone] Blood 03/11/2025 12:3 6 PM CDT 03/11/2025 12:45 PM CDT Clotilde Bai DNP LAB BLOOD ORDERABLE S Final Result LU[facility] CARLOS [facility] Department [place] [address] * (ABNORMAL) CBC with auto differential (03/11/2025 12:36 PM CDT) WBC 6.21 3.80 - 9.90 K/cumm Comment:Testing performed by : [facility], [address] [place] [phone] Hgb 10.9(L) 11.9 - 15.5 g/dL LUIS CARLOS GAVIN Comment:Testing performed by : [facility], [address] [place] [address] Hct 32.9(L) 35.6 - 45.5 % [facility]ER [facility] Comment:Testing performed by : [facility], [address] [place], [place] [phone] Plt 203 150 - 400 K/cumm [facility]ER [facility] Comment:Testing performed by : [facility], [address] [place], [place] [phone] MPV 8.2 6.8 - 10.4 fL [facility]ER [facility] Comment:Testing performed by : [facility], [address] [place], [place] [phone] RBC 3.70(L) 3.90 - 5.20 M/cumm [facility]ER [facility] Comment:Testing performed by : [facility], [address] [place], [place] [phone] MCV 88.9 81.3 - 96.4 fL [facility]ER [facility] Comment:Testing performed by : [facility], [address] [place] [address] MCH 29.5 27.1 - 33.3 pg [facility]ER [facility] Comment:Testing performed by : [facility], [address] [place] [address] MCHC 33.2 32.3 - 35.7 g/dL [facility] Comment:Testing performed by : [facility], [address] [place] [address] RDW CV 15.1(H) 11.1 - 14.9 % [facility]ER [facility] Comment:Testing performed by : [facility], [address] [place] [address] NRBC abs 0.00 0.00 - 0.01 K/cumm [facility]ER [facility] Comment:Testing performed by : [facility], [address] [place], [place] [phone] Blood 03/11/2025 12:3 6 PM CDT 03/11/2025 12:45 PM CDT Clotilde Bai [facility] LAB BLOOD ORDERABLE S Final Result [facility] Astrid [facility] [place] [address] * Prealbumin (03/11/2025 12:36 PM CDT) Prealbumin 21.0 20.0 - 40.0 mg/dL Blood 03/11/2025 12:3 6 PM CDT 03/11/2025 1:32 PM CDT [facility] LAB BLOOD ORDERABLE S Final Result Performing Organization Address [facility] de Phone Number [facility] Department [place] [address] * (ABNORMAL) Comprehensive metabolic panel (03/11/2025 12:36 PM CDT) Pathologist [facility] Sodium 138 135 - 145 mmol/L Potassium, pl 3.6 3.3 - 4.9 mmol/L [facility] Chloride 98 97 - 110 mmol/L [facility] CO2 27 22 - 32 mmol/L [facility] Anion gap 13 2 - 15 mmol/L [facility] BUN 34(H) 6 - 25 mg/dL [facility] Creatinine 4.10(H) 0.60 - 1.10 mg/dL [facility] Glucose 96 70 - 199 mg/dL [facility] Comment: Interpretive Data Fasting glucose >/= 126 mg/dl is diagnostic for diabetes. Fasting is defined as no caloric intake for at least 8 hours. Fasting glucose between 100 mg/dl to 125 mg/dl is diagnostic of prediabetes. In a patient with classic symptoms of hyperglycemia or hyperglycemic crisis, a random glucose >/= 200 mg/dl is diagnostic for diabetes. In the absence of unequivocal hyperglycemia, results should be confirmed by repeat testing. The classification and Diagnosis of Diabetes Diabetes Care 2021; 46: S19-S40. Current interpretive data was last revised 2022. Calcium 11.0(H) 8.5 - 10.3 mg/dL [facility] Bilirubin, total 0.2 0.1 - 1.2 mg/dL [facility] Protein, pl 6.9 6.5 - 8.5 g/dL CERNER [facility] Albumin 3.9 3.5 - 5.0 g/dL [facility] Alk phos 59 40 - 130 Units/L [facility] ALT 6(L) 7 - 45 Units/L [facility] AST 14 10 - 45 Units/L [facility] Blood 03/11/2025 12:3 6 PM CDT 03/11/2025 12:49 PM CDT Clotilde Bai DNP LAB BLOOD ORDERABLE S Final Result [facility] Department [place] [address] * FL Fluoroscopy < 1 Hour (03/05/2025 12:02 PM CDT) Narrative [id number] - 03/05/2025 12:02 PM CDT The images from this study are not interpreted by Radiology. Please refer to the physician's procedure / OR operative note. us Dean Ambrose MD IMG FLUOROSCOPY PROCEDURE S Final Result Performing Organization Address City/[facility]/ZIP Co de Phone Number [email or web address] * (ABNORMAL) POC Blood Gas and Chemistries, Venous - (03/05/2025 11:10 AM CDT) pH, Will POC 7.44(H) 7.32 - 7.43 pCO2, will POC 42 40 - 50 mmHg [facility] pO2, will POC 55 mmHg [facility] Na, POC 137 135 - 145 mmol/L [facility] K POC 3.9 3.3 - 4.9 mmol/L [facility] Comment: Interpretive Data Not all point of care methods assess for hemolysis. Confirm with instrument and retest K+ if not consistent with clinical signs and symptoms. Current Interpretive Data was last revised on 2023. Cl, POC 102 97 - 110 mmol/L [facility] Ionized Ca, POC 5.09 4.50 - 5.10 mg/dL [facility] Glucose, POC 109 70 - 199 mg/dL [facility] Lactate POC 2.1(H) 0.7 - 2.0 mmol/L [facility] O2 Sat, Will POC (Mumtaz) 87 % [facility] Base excess, POC 3.9 mmol/L [facility] HCO3, Will POC 28 20 - 30 mmol/L [facility] Hct, POC 34.0(L) 36.3 - 45.3 % [facility] Total Hb, POC 11.4(L) 11.9 - 15.5 g/dL [facility] Blood 03/05/2025 11:1 0 AM CDT 03/05/2025 11:10 AM CDT Dean Ambrose MD LAB POCT ORDERABLES - DEV ICE Final Result [facility] Department [place] [address] * Hepatitis panel, acute (04/21/2022 11:19 AM CDT) Hep A IgM Nonreactive Nonreactive [facility] CARLOS [facility] Comment: Interpretive Data: If Hep A IgM Ab is reported as Equivocal, a new sample should be drawn in two weeks for testing. Current interpretive data was last revised on 19. Testing performed by: [facility], [address] [place] [address]., [id number] Hep B core IgM Nonreactive Nonreactive [facility] Comment: Interpretive Data If HepB Core IgM Ab is reported as Equivocal, a new sample should be drawn in two weeks for testing. Current interpretive data was last revised on 19. Testing performed by: [facility], [address] [place] [address]., [id number] Hep C Ab Nonreactive Nonreactive LU[facility] CARLOS [facility] Comment: Interpretive Data Nonreactive: Antibodies to HCV not detected. Does NOT exclude the possibility of recent exposure to HCV. Equivocal: Equivocal for HCV antibodies. Supplemental molecular testing will be automatically performed to determine infection status in accordance with current CDC screening recommendations. Reactive: Positive for HCV antibodies. This may represent current or past HCV infection. Supplemental molecular testing will be automatically performed to determine current infection status in accordance with current CDC screening recommendations. Interpretive data was last revised on 2019. Testing performed by: [facility], [address] [place] [address]., [id number] HepBsAg Nonreactive Nonreactive [facility]IS CARLOS [facility] Comment:Testing performed by : [facility], [address] [place] [address]., [id number] Blood 04/21/2022 11:1 9 AM CDT 04/21/2022 2:30 PM CDT Sybil Carballo MD LAB MICROBIOLOGY - G ENERAL ORDERABLES Final Result [facility] CAR[facility]OS [facility] [address] [facility]. Department [place] [address] * COLONOSCOPY (07/16/2018 12:21 PM SHOT EXAMINER) Anatomical Region Laterality Modality Other Narrative Procedure Note Robbie Srivastava MD - 07/16/2018 12:21 PM [facility] Patient Name: Mary Ramirez Procedure Date: 07/16/2018 12:21PM Date of : 1955 Admit Type: Inpatient Age: 63 Gender: Female Attending MD: Robbie Srivastava MD Room: [facility] OR POD 5 ROOM 229 Note Status: Finalized Procedure: Colonoscopy Indications: Hematochezia Referring MD: Providers: Robbie Srivastava MD, Constantine Yates MD Medicines: Monitored Anesthesia Care Complications: No immediate complications. Estimated Blood Loss: Estimated blood loss: none. Procedure: Pre-Anesthesia Assessment: - Prior to the procedure, a History and Physical was performed, and patient medications and allergieswere reviewed. The patient is competent. The risks and benefits of the procedure and the sedation optionsand risks were discussed with the patient. All questions were answered and informed consent was obtained. Patient identification and proposed procedure were verified by the physician in the pre-procedure area. Mental Status Examination: alert and oriented.Airway Examination: normal oropharyngeal airway and neck mobility. Respiratory Examination: clear to auscultation. CV Examination: normal. Prophylactic Antibiotics: The patient does not requireprophylactic antibiotics. Prior Anticoagulants: The patient has taken heparin. ASA Grade Assessment: III - A patient with severe systemic disease. After reviewing therisks and benefits, the patient was deemed in satisfactory condition to undergo the procedure. The anesthesiaplan was to use monitored anesthesia care (MAC).Immediately prior to administration of medications, the patientwas re-assessed for adequacy to receive sedatives. The heart rate, respiratory rate, oxygen saturations,blood pressure, adequacy of pulmonary ventilation, and response to care were monitored throughout the procedure. The physical status of the patient was re-assessed after the procedure. The benefits, risks and alternatives of theprocedure and sedation were discussed and informed consent was obtained. All questions were answered. Please referto the signed informed consent document in the medical record. The scope was passed under direct vision.The [id number] endoscope was introduced throughthe anus and advanced to the the cecum, identified by appendiceal orifice and ileocecal valve. The colonoscopy was performed without difficulty. The patient tolerated the procedure well. The quality of the bowel preparation was good. Findings: The perianal and digital rectal examinations were normal. Non-bleeding internal hemorrhoids were found during retroflexion. The hemorrhoids were small. The exam was otherwise without abnormality on direct and retroflexion views. Impression: - Non-bleeding internal hemorrhoids. - The examination was otherwise normal on direct and retroflexion views. - No specimens collected. Recommendation: - [facility] - Resume previous diet. - Continue present medications. - To visualize the small bowel, perform videocapsule endoscopy at appointment to be scheduled. Attending Participation: I was present and participated during the entire procedure from insertion to removal of the endoscope. Robbie Srivastava MD 07/16/2018 12:50:07 PM Number of Addenda: 0 Note Initiated On: 07/16/2018 12:21 PM Recognized by the [employer] for promoting quality in endoscopy us Robbie Srivastava MD ENDOSCOPY PROCEDURES Final Result * Diagnostic Mammogram Bilateral W Mikhail (06/22/2015 11:21 AM SHOT EXAMINER) Anatomical Region Laterality Modality Breast Bilateral Mammography 06/22/2015 11:2 1 AM SHOT EXAMINER Narrative 06/22/2015 11:36 AM SHOT EXAMINER MILE BARBA M.D. FINAL REPORT ACC# Date Time Exam [id number] Jun 22, 2015 11:21:00 [facility] [address] Diag Mammogram Bilateral Technologist(s): Adriana Thibodeaux; ; [id number] Jun 22, 2015 11:21:00 [facility] [address] Dig Breast Mikhail Juan EXAMINATION: BILATERAL FULL FIELD DIGITAL DIAGNOSTIC MAMMOGRAM WITH CAD AND DIGITAL BREAST TOMOSYNTHESIS HISTORY: 60-year-old female presents for followup of a probably benign right breast mass. TECHNIQUE: Full field digital craniocaudal and mediolateral oblique views of both breasts were obtained. Computer Aided Detection was performed with R2, [employer] 1.3 version 9.3. Digital breast tomosynthesis was performed and reviewed as a part of this examination. COMPARISON: 09/29/2013 and 02/03/2013 BREAST PARENCHYMAL COMPOSITION: There are scattered areas of fibroglandular density. FINDINGS: No new suspicious abnormality is seen within either breast on mammogram. The previously described 1 cm oval, equal density mass in the upper outer quadrant of the right breast is unchanged in appearance. IMPRESSION: OVERALL FINAL ASSESSMENT: BI-RADS Category 2: Benign finding. RECOMMENDATION: Annual screening mammography is recommended. Requested By: Dictated By: MILE BARBA M.D. on Jun 22 2015 11:36A This document has been electronically signed by: MILE BARBA M.D. on Jun 22 2015 11:36A [id number] Procedure Note Provider, MD Ubaldo - 11/29/2016 MILE BARBA M.D. FINAL REPORT ACC# Date Time Exam [id number] Jun 22, 2015 11:21:00 [facility] [address] Diag Mammogram Bilateral Technologist(s): Adriana Thibodeaux; ; [id number] Jun 22, 2015 11:21:00 [facility] [address] Dig Breast Mikhail Juan EXAMINATION: BILATERAL FULL FIELD DIGITAL DIAGNOSTIC MAMMOGRAM WITH CAD AND DIGITAL BREAST TOMOSYNTHESIS HISTORY: 60-year-old female presents for followup of a probably benign right breast mass. TECHNIQUE: Full field digital craniocaudal and mediolateral oblique views of both breasts were obtained. Computer Aided Detection was performed with [employer] 1.3 version 9.3. Digital breast tomosynthesis was performed and reviewed as a part of this examination. COMPARISON: 09/29/2013 and 02/03/2013 BREAST PARENCHYMAL COMPOSITION: There are scattered areas of fibroglandular density. FINDINGS: No new suspicious abnormality is seen within either breast on mammogram. The previously described 1 cm oval, equal density mass in the upper outer quadrant of the right breast is unchanged in appearance. IMPRESSION: OVERALL FINAL ASSESSMENT: BI-RADS Category 2: Benign finding. RECOMMENDATION: Annual screening mammography is recommended. Requested By: Dictated By: MILE BARBA M.D. on Jun 22 2015 11:36A This document has been electronically signed by: MILE BARBA M.D. on Jun 22 2015 11:36A [id number] us Historical Provider MD [facility] MAMMO PROCEDURES Naida l Result from Last 3 Months or Most Recently Relevant to Health Maintenance
--- OUTSIDE RECORDS SUMMARY | 2025-05-29 16:12 | XMS_ITS | Clinical Summary ---
Author Organization [facility] Address [address] [place] [address] Care Team Providers Care Systems Lead Name Role Phone Yoanna Dove MD PhD Unavailable [phone] Jair Waterman MD Unavailable [phone] Unknown, Notinfile Primary Care Provider Unavail able Serina Pedroza MD Unavailable Allergies Active Allergy Reactions Criticality Noted Date [...] Pt felt weird Nitrofurantoin Diarrhea Low 01/26/2020 Yntqxam-Njx-Zer Reductase Inhibitors Muscle pain Medium 07/19/2022 Multiple [...] Adenocarcinoma of left lung 05/27/2024 Overview (06/11/2024): [facility] #: [id number] Taken:05/06/2024 Received:05/06/2024 Reported: 05/08/2024 Patient Type: [facility] Ancillary Service: Pulmonary Location: Physician(s): Luiz [...] c/s Assessment & Plan (06/03/2024 2:13 PM IT PROGRAMMER ANALYST): Follows with Dr. 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 - serotonin serum 367, chromogranin A - 399 - urine 5 HIAA pending - holding octreotide as no BM for over 24 hrs Generalized weakness 05/27/2024 Assessment & Plan (06/03/2024 2:16 PM IT PROGRAMMER ANALYST): 2/2 dehydration and diarrhea discussed elsewhere PT - home with family/home with initial 24 hour supervision/home. Daughter will take home and supervise initially at home while patient regains strength Atrial fibrillation 05/27/2024 Assessment & Plan (06/03/2024 2:16 PM IT PROGRAMMER ANALYST): S/p ablation. 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 Waterman. Suspicion for a neuroendocrine neoplasm (consensus at [facility]) based on episodes of diarrhea and index mesenteric mass, Dotatate avid and FDG negative. Not amenable to surgery or biopsy by HPB or IR. Assessment & Plan (11/26/2024 11:50 AM CDT): Follows elian/Dr. Waterman. Suspicion for a neuroendocrine neoplasm (consensus at [facility]) based on episodes of diarrhea and index mesenteric mass, Dotatate avid and FDG negative. Not amenable to surgery or biopsy by HPB or IR. - north onc c/s Assessment & Plan (11/25/2024 11:42 AM CDT): Follows elian/Dr. Waterman. Suspicion for a neuroendocrine neoplasm (consensus at [facility]) based on episodes of diarrhea and index mesenteric mass, Dotatate avid and FDG negative. Not amenable to surgery or biopsy by HPB or IR. - north onc c/s Assessment & Plan (11/24/2024 9:44 AM CDT): Follows elian/Dr. Waterman. Suspicion for a neuroendocrine neoplasm (consensus at [facility]) based on episodes of diarrhea and index mesenteric mass, Dotatate avid and FDG negative. Not amenable to surgery or biopsy by HPB or IR. - north onc c/s Assessment & Plan (11/23/2024 10:33 AM CDT): Follows w/Dr. Waterman. Suspicion for a neuroendocrine neoplasm (consensus at [facility]) based on episodes of diarrhea and index mesenteric mass, Dotatate avid and FDG negative. Not amenable to surgery or biopsy by HPB or IR. - north onc c/s Assessment & Plan (11/22/2024 5:54 PM CDT): Follows w/Dr. Waterman. Suspicion for a neuroendocrine neoplasm (consensus at [facility]) based on episodes of diarrhea and index [...] (06/12/2022): Added automatically from request for surgery [id number] Assessment & Plan (01/13/2025 8:32 AM CDT): [...] BID Assessment & Plan (06/03/2024 2:11 PM IT PROGRAMMER ANALYST): HD on Mondays and Fridays - nephrology following; s/p HD on 05/30, 06/02 - PTH 196 Assessment & Plan (06/13/2022 2:47 PM IT PROGRAMMER ANALYST): Patient seen today for malfunctioning subclavian Perma [...] (11/15/2018): Added automatically from request for surgery [id number] Sciatica 07/11/2018 Assessment & Plan (07/11/2018 4:12 AM IT PROGRAMMER ANALYST): With MRI spine earlier this year w/o evidence of central canal stenosis. Seen by orthopedic surgery for this and started on Celebrex. Peripheral neuropathy 07/11/2018 Assessment & Plan (05/28/2024 6:23 PM CDT): On gabapentin 300 nightly Assessment & Plan (07/11/2018 5:50 AM IT PROGRAMMER ANALYST): Peripheral vascular neuropathy. Resume gabapentin. Check B12. [...] nightly Assessment & Plan (07/19/2018 12:07 PM IT PROGRAMMER ANALYST): She has a long vascular history s/p aortobifemoral and fem-fem bypass with recurrent claudication s/p UROGYNECOLOGY PHYSICIAN stent x 2 to R aortofem limb [...] BID. Assessment & Plan (07/18/2018 12:40 PM IT PROGRAMMER ANALYST): She has a long vascular history s/p aortobifemoral and fem-fem bypass with recurrent claudication s/p UROGYNECOLOGY PHYSICIAN stent x 2 to R aortofem limb [...] eventually need outpatient follow-up with Dr. Derrell Queen vascular, stay on aspirin and may discontinue Plavix - Also vascular recommends Eliquis 5 BID. Assessment & Plan (07/17/2018 2:30 PM IT PROGRAMMER ANALYST): She has a long vascular history s/p aortobifemoral and fem-fem bypass with recurrent claudication s/p UROGYNECOLOGY PHYSICIAN stent x 2 to R aortofem limb [...] BID. Assessment & Plan (07/16/2018 10:57 AM IT PROGRAMMER ANALYST): She has a long vascular history s/p aortobifemoral and fem-fem bypass with recurrent claudication s/p UROGYNECOLOGY PHYSICIAN stent x 2 to R aortofem limb [...] procedure Assessment & Plan (07/15/2018 2:08 PM IT PROGRAMMER ANALYST): She has a long vascular history s/p aortobifemoral and fem-fem bypass with recurrent claudication s/p UROGYNECOLOGY PHYSICIAN stent x 2 to R aortofem limb [...] procedure. Assessment & Plan (07/14/2018 12:52 PM IT PROGRAMMER ANALYST): She has a long vascular history s/p aortobifemoral and fem-fem bypass with recurrent claudication s/p UROGYNECOLOGY PHYSICIAN stent x 2 to R aortofem limb [...] drip Assessment & Plan (07/13/2018 5:26 PM IT PROGRAMMER ANALYST): She has a long vascular history s/p aortobifemoral and fem-fem bypass with recurrent claudication s/p UROGYNECOLOGY PHYSICIAN stent x 2 to R aortofem limb [...] drip Assessment & Plan (07/12/2018 6:40 PM IT PROGRAMMER ANALYST): She has a long vascular history s/p aortobifemoral and fem-fem bypass with recurrent claudication s/p UROGYNECOLOGY PHYSICIAN stent x 2 to R aortofem limb [...] drip Assessment & Plan (07/11/2018 5:37 AM IT PROGRAMMER ANALYST): H/o aortobifemoral and fem-fem bypass with recurrent claudication s/p UROGYNECOLOGY PHYSICIAN stent x 2 to R aortofem limb [...] 07/11/2018 Assessment & Plan (07/19/2018 12:08 PM IT PROGRAMMER ANALYST): Patient with recurrent UTI over the past 3 years and recent admission in April for pyelo. Has history of chronic right ureteral obstruction and undergoes yearly stent exchanges with Dr. Carney here. -Urine culture with no growth, CTX discontinued Assessment & Plan (07/18/2018 12:43 PM IT PROGRAMMER ANALYST): Patient with recurrent UTI over the past 3 years and recent admission in April for pyelo. Has history of chronic right ureteral obstruction and undergoes yearly stent exchanges with Dr. Carney here. -Urine culture with no growth, CTX discontinued Assessment & Plan (07/17/2018 2:31 PM IT PROGRAMMER ANALYST): Patient with recurrent UTI over the past 3 years and recent admission in April for pyelo. Has history of chronic right ureteral obstruction and undergoes yearly stent exchanges with Dr. Carney here. -Urine culture with no growth, CTX discontinued Assessment & Plan (07/16/2018 11:01 AM IT PROGRAMMER ANALYST): Patient with recurrent UTI over the past 3 years and recent admission in April for pyelo. Has history of chronic right ureteral obstruction and undergoes yearly stent exchanges with Dr. Carney here. -Urine culture with no growth, CTX discontinued Assessment & Plan (07/15/2018 2:09 PM IT PROGRAMMER ANALYST): Patient with recurrent UTI over the past 3 years and recent admission in April for pyelo. Has history of chronic right ureteral obstruction and undergoes yearly stent exchanges with Dr. Carney here. -Urine culture with no growth, CTX discontinued Assessment & Plan (07/12/2018 6:40 PM IT PROGRAMMER ANALYST): Patient with recurrent UTI over the past 3 years and recent admission in April for pyelo. Has history of chronic right ureteral obstruction and undergoes yearly stent exchanges with Dr. Carney here. -Urine culture with no growth, CTX discontinued Assessment & Plan (07/11/2018 5:45 AM IT PROGRAMMER ANALYST): Patient with recurrent UTI over the past [...] 07/11/2018 Assessment & Plan (07/19/2018 12:08 PM IT PROGRAMMER ANALYST): She presented with anemia down to 6.8 [...] daily Assessment & Plan (07/18/2018 12:41 PM IT PROGRAMMER ANALYST): She presented with anemia down to 6.8 [...] pill. Assessment & Plan (07/17/2018 2:33 PM IT PROGRAMMER ANALYST): She presented with anemia down to 6.8 [...] PPI Assessment & Plan (07/16/2018 10:58 AM IT PROGRAMMER ANALYST): She presented with anemia down to 6.8 [...] problems. Assessment & Plan (07/15/2018 2:09 PM IT PROGRAMMER ANALYST): She presented with anemia down to 6.8 [...] evening. Assessment & Plan (07/14/2018 12:51 PM IT PROGRAMMER ANALYST): She presented with anemia down to 6.8 [...] night Assessment & Plan (07/13/2018 5:22 PM IT PROGRAMMER ANALYST): She presented with anemia down to 6.8 [...] then Assessment & Plan (07/12/2018 6:38 PM IT PROGRAMMER ANALYST): She presented with anemia down to 6.8 [...] then Assessment & Plan (07/11/2018 5:49 AM IT PROGRAMMER ANALYST): Normocytic anemia of 6.8 in setting of [...] 07/11/2018 Assessment & Plan (07/19/2018 12:08 PM IT PROGRAMMER ANALYST): Symptomatically improved after transfusion. Likely 2/2 stress of anemia. - Discontinue telemetry Assessment & Plan (07/18/2018 12:43 PM IT PROGRAMMER ANALYST): Symptomatically improved after transfusion. Likely 2/2 stress of anemia. - Discontinue telemetry Assessment & Plan (07/17/2018 2:30 PM IT PROGRAMMER ANALYST): Symptomatically improved after transfusion. Likely 2/2 stress of anemia Assessment & Plan (07/16/2018 11:00 AM IT PROGRAMMER ANALYST): Symptomatically improved after transfusion. Likely 2/2 stress of anemia Assessment & Plan (07/15/2018 2:11 PM IT PROGRAMMER ANALYST): Symptomatically improved after transfusion. She is having runs of NSVT on telemetry for which she might benefit from a beta-ubaldo. Assessment & Plan (07/14/2018 12:52 PM IT PROGRAMMER ANALYST): Symptomatically improved after transfusion. She is having runs of NSVT on telemetry for which she might benefit from a beta-ubaldo. Assessment & Plan (07/13/2018 5:25 PM IT PROGRAMMER ANALYST): Symptomatically improved after transfusion. She is having runs of NSVT on telemetry for which she might benefit from a beta-ubaldo. Assessment & Plan (07/11/2018 5:51 AM IT PROGRAMMER ANALYST): H/o PVCs s/p RF ablation; not on BB. Reports ongoing palpitations w/o associated CP. EKG as above. -monitor on tele -correct anemia -trend troponins as above, check TSH Severe malnutrition 07/11/2018 Assessment & Plan (05/28/2024 6:22 PM CDT): RD consulted. Supplements ordered Gastrointestinal hemorrhage 07/10/2018 Overview (07/15/2018): Added automatically from request for surgery [id number] Hyperlipidemia 11/10/2016 Abnormal results of pulmonary function [...] CABG Assessment & Plan (07/19/2018 12:08 PM IT PROGRAMMER ANALYST): CAD s/p CABG, currently without chest pain. Serial troponins were negative. -Continue Zetia - ASA restarted - Discontinue plavix on elquis Assessment & Plan (07/18/2018 12:43 PM IT PROGRAMMER ANALYST): CAD s/p CABG, currently without chest pain. Serial troponins were negative. -Continue Zetia - ASA restarted - Discontinue plavix on elquis Assessment & Plan (07/17/2018 2:31 PM IT PROGRAMMER ANALYST): CAD s/p CABG, currently without chest pain. Serial troponins were negative. -Continue Zetia - ASA restarted - Discontinue plavix as no more cardiac indication for it - Planning to start eliquis instead Assessment & Plan (07/16/2018 11:00 AM IT PROGRAMMER ANALYST): CAD s/p CABG, currently without chest pain. Serial troponins were negative. -Continue Zetia -Heparin drip as noted elsewhere in place of ASA/Plavix Assessment & Plan (07/15/2018 2:08 PM IT PROGRAMMER ANALYST): CAD s/p CABG, currently without chest pain. Serial troponins were negative. -Continue Zetia -Heparin drip as noted elsewhere in place of ASA/Plavix Assessment & Plan (07/14/2018 12:51 PM IT PROGRAMMER ANALYST): CAD s/p CABG, currently without chest pain. Serial troponins were negative. -Continue Zetia -Heparin drip as noted elsewhere in place of ASA/Plavix Assessment & Plan (07/13/2018 5:22 PM IT PROGRAMMER ANALYST): CAD s/p CABG, currently without chest pain. -Continue Zetia -Heparin drip as noted elsewhere in place of ASA/Plavix -Serial troponins were negative Assessment & Plan (07/12/2018 6:38 PM IT PROGRAMMER ANALYST): CAD s/p CABG, currently without chest pain. Holding ASA/Plavix as noted elsewhere. -Continue Zetia -Serial troponins were negative Assessment & Plan (07/11/2018 5:42 AM IT PROGRAMMER ANALYST): CAD s/p CABG; currenlty w/o chest pain [...] ileus Assessment & Plan (06/03/2024 2:11 PM IT PROGRAMMER ANALYST): Prior to admission, the patient was on [...] discharge Assessment & Plan (06/13/2022 2:39 PM IT PROGRAMMER ANALYST): Chronic stable hypertension be controlled with medications. Continue monitoring blood pressures and taking medications as per PCP. Assessment & Plan (07/19/2018 12:08 PM IT PROGRAMMER ANALYST): She has a fairly wide pulse pressure so despite high systolic pressures, her actual MAP is not particularly high. She is now starting to be hypertensive - restarting lisinopril Assessment & Plan (07/18/2018 12:42 PM IT PROGRAMMER ANALYST): She has a fairly wide pulse pressure so despite high systolic pressures, her actual MAP is not particularly high. She is not currently tachycardic or hypertensive - Continue holding lisinopril Assessment & Plan (07/17/2018 2:30 PM IT PROGRAMMER ANALYST): She has a fairly wide pulse pressure so despite high systolic pressures, her actual MAP is not particularly high. She may benefit from a beta-ubaldo for her NSVT, but pulse might be too low. NVST has also resolved - Continue lisinopril though might remove if pressures become too low Assessment & Plan (07/16/2018 11:00 AM IT PROGRAMMER ANALYST): She has a fairly wide pulse pressure so despite high systolic pressures, her actual MAP is not particularly high. She may benefit from a beta-ubaldo for her NSVT, but pulse might be too low. NVST has also resolved -Restarting lisinopril this AM. Assessment & Plan (07/15/2018 2:11 PM IT PROGRAMMER ANALYST): She has a fairly wide pulse pressure [...] MAX-inhibitor Assessment & Plan (07/14/2018 12:52 PM IT PROGRAMMER ANALYST): She has a fairly wide pulse pressure [...] MAX-inhibitor Assessment & Plan (07/13/2018 5:26 PM IT PROGRAMMER ANALYST): She has a fairly wide pulse pressure so despite high systolic pressures, her actual MAP is not particularly high. She may benefit from a beta-ubaldo for her NSVT. -Holding lisinopril in setting of recent contrast load -Will discuss beta-ubaldo versus ACEi Assessment & Plan (07/12/2018 6:39 PM IT PROGRAMMER ANALYST): She has a fairly wide pulse pressure. -Holding lisinopril in setting of recent contrast load, restart if creatinine is stable Assessment & Plan (07/11/2018 5:50 AM IT PROGRAMMER ANALYST): Hold home lisinopril given low hemoglobin although will likely be able to start in AM. Atherosclerosis of tetlin ar teries of extremities with intermittent claudication, unspecified extremity 12/12/1995 Overview (11/29/2018): Added automatically from request for surgery Resolved Problems Problem Noted Date Diagnosed Date Resolved Date Goals of care, counseling/discussion 05/27/2024 12/30/2024 Adenocarcinoma of upper lobe of left lung 03/18/2024 05/27/2024 Hx of CABG 07/19/2022 05/27/2024 Encounters Date Type Department Care Team Description 05/28/2025 Telephone [facility] Floor [address] [place] [address] Jair Waterman MD 05/27/2025 Telephone [facility] Floor [address] [place] [address] Jair Waterman MD 05/27/2025 Orders Only [facility] Floor [address] [place] [address] Jair Waterman MD Neuroendocrine carcinoma of small bowel (HCC); Diarrhea, unspecified type 05/26/2025 [facility] [address] [facility] [address] [place] [address] Jair Waterman MD 05/26/2025 [facility] [address] [facility] Floor [address] [place] [address] Jair Waterman MD 05/20/2025 8:45 AM CDT Office Visit [facility] [address] [facility] Floor 6 [place] [address] Natalie Esquivel MD 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) 05/20/2025 Documentation [facility] Nutrition Counseling [address] [place] [address] Adali Dill, CHRISTIANNE 04/21/2025 Telephone [facility] Medicine Cardiology [facility] 8th [place] [address] [place] [address] Ana Thomason 04/14/2025 [facility] [address] [facility] Floor [address] [place] [address] Jair Waterman MD 04/14/2025 Orders Only [facility] Medicine Oncology [address] [facility] Floor 5 [place] [address] Jair Waterman MD 03/24/2025 Documentation [facility] Nutrition Counseling [address] [place] [address] 03/17/2025 Documentation [facility] [address] [place] [address] 03/13/2025 Telephone [facility] Nutrition Counseling [address] [place] [address] 03/11/2025 1:[address] [facility] - Lab Collection [address] [facility] [address] [place] [address] Neuroendocrine carcinoma of small bowel (HCC) 03/11/2025 11:15 AM CDT Office Visit [facility] Medicine Surgery [address] [facility] Floor [address] [place] [address] Natalie Esquivel MD 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); Atrial fibrillation, unspecified type (HCC) 03/11/2025 Orders Only [facility] Surgery [address] [facility] [address] [place] [phone] Natalie Esquivel MD 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) 03/05/2025 12:15 PM CDT - 03/05/2025 2:15 PM CDT Surgery [facility] Operating Room [address] [place] [address] Dean Ambrose MD EXCHANGE STENT RIGHT 03/05/2025 11:26 AM CDT Anesthesia Event [facility] Operating Room [address] [place] [phone] John Gage MD Heimann, Liza Marie Ortillo, NP 03/05/2025 10:21 AM CDT - 03/05/2025 1:08 PM CDT Hospital Encounter [facility] Operating Room [address] [place] [phone] Dean Ambrose MD Encounter for preoperative assessment (Primary Dx) Discharge Disposition: Discharge to home or self care 03/05/2025 Telephone [facility] Medicine Surgery [address] [facility] [address] [place] [address] Dean Ambrose MD 02/26/2025 Telephone [facility] Medicine Urology [address] [facility] Medical [facility] Building [address] [place] [address] Moraima Connor from Last 3 Months Immunizations Immunization Administration Dates Next Due Influenza, Quadrivalent, Hig h Dose, Preservative Free, Intrr 04/28/2020 Influenza, Quadrivalent, Spl it, Preservative Free, Intramuscular 05/29/2019 Influenza, Trivalent, High D ose, Split, Preservative Free, Intramuscular 05/29/2018 Pneumococcal Conjugate PCV 13 05/08/2012 Pneumococcal Polysaccharide PPV23 05/29/2018 Tdap 05/29/2018 Surgical History Surgery Date Site/Laterality Comments FEMORAL BYPASS Bilateral PAD 1997, 1998, 2000, 2004, 11/2018 SMALL BOWEL RESECTION 07/30/2001 - 07/29/2002 ARM SURGERY 07/30/2009 - 07/29/2010 repair blockage in right arm r/t angioplasty in graft of right leg ANGIOPLASTY 07/30/2014 - 07/29/2015 Right RLE URETERAL STENT PLACEMENT 07/30/2000 - 07/29/2001 Right multiple replacements-- Last exchange 06/19/2024 VENTRAL HERNIA REPAIR 07/30/2007 - 07/29/2008 CARDIAC ELECTROPHYSIOLOGY STUDY AND ABLATION 07/30/2016 - 07/29/2017 Heart Ablation UPPER GASTROINTESTINAL ENDOSCOPY 07/2020, 2018 COLONOSCOPY 07/30/2020 - 08/29/2020 CORONARY ARTERY BYPASS GRAFT 07/30/1997 - 07/29/1998 X 4 vessel GALLBLADDER SURGERY 1989' removed NEPHROURETERAL STENT PLACEME NT NEW ACCESS RIGHT 04/20/2022 Right URETERAL STENT PLACEMENT VIA EXISTING TRACT RIGHT 06/08/2022 Right URETERAL STENT PLACEMENT 04/29/2023 - 05/29/2023 URETERAL STENT PLACEMENT 06/19/2024 Right exchange Medical History Medical History Date Comments Arthritis Hypertension Dxd 1998 Vascular disease Spinal stenosis Hx of CABG 4 vessel 1997 Neuropathy Abdominal aneurysm History of transfusion 06/2018 Bowel obstruction (HCC) CKD (chronic kidney disease) GERD (gastroesophageal reflu x disease) Hyperlipidemia Treated with sta tin Obesity History of atrial fibrillation s /p ablation 2016 PAD (peripheral artery disease) s/p multiple bypass and angioplasty BLE Makeda positive +AUS and Anti-K- -Easy cross match Hemodialysis patient 11/2020 HD Mondays & Fridays at [facility] Dialysis patient Sunday and ay Carotid artery stenosis Left ICA stenosis < 50% (Left ICA/CCA ratio 2.61) and Right ICA stenosis 50-69% (Right ICA/CCA ratio is 1.40) per doppler 05/20/2020 at OSH Carcinoid tumor of colon (HCC) P er Oncology OVN 01/2025--Suspicion for a neuroendocrine neoplasm (consensus at [facility]) based on episodes of diarrhea and index mesenteric mass, Dotatate avid and FDG negative. Not amenable to surgery or biopsy by HPB or IR. Primary lung adenocarcinoma (HCC) Lung cancer (HCC) 05/27/2024 Non-Small Cell Lung CA GISSEL dxd 04/2024 s/p palliative radiation (last 07/07/2024) Anemia of chronic disease Family History Medical History Relation Name Comments Hypertension Brother Melanoma Brother in his 50s from melanoma Hypertension Daughter Coronary artery disease Father Heart attack Father Hypertension Father Peripheral vascular disease Father Sudden Cardiac Father No Known Problems Mother Leukemia Mother's Brother Cancer Mother's Sister Diabetes Sister Anesthesia problems Neg Hx Relation Name Status Comments Brother Daughter Father Mother Alive Mother's Brother Alive Mother's Sister Alive Sister Social History Tobacco Use Types Packs/Day Years Used Date Smoking Tobacco: Former Cigarettes 2 28 1 - 1997 Smokeless Tobacco: Never Tobacco Cessation:Counseling Given: Not Answered Alcohol Use Standard Drinks/Week Comments Never 0 (1 standard drink = 0.6 oz pur e alcohol) [facility] Utilities Answer Date Recorded In the past 12 months has [employer], gas, oil, or water [employer] threatened to shut off services in your [...] answer 01/13/2025 How often do you attend [facility] or [facility] services? Patient unable to answer 01/13/2025 Do you belong to any clubs o r organizations such as mosque groups, unions, fraternal or athletic groups, or [...] any time in the past 12 m [facility], were you homeless or living in a [facility] (including now)? Patient unable to answer 01/13/2025 [...] on file Legal Sex Female 3:32 PM IT PROGRAMMER ANALYST Gender Identity Not on file Sexual Orientation Not on file Occupation Industry Job Start Date Job End Date disability Not on file Not on file Not on file Obstetrics History Last Filed Vital Signs Vital Sign Reading [...] Mass Index 17.81 05/20/2025 8:41 AM CDT Plan of Treatment Health Maintenance Due Date Last Done Comments Depression Screening 1955 Osteoporosis Screening-Bone Density Scan 1955 Zoster Vaccine (1 of 2) 1972 Breast Cancer Screening-Mammogram 06/22/2016 015, 04/02/2014 Well Visit 65+ 2018 Influenza Vaccine (#1) 2025 0, 05/29/2019, 05/29/2018 Fall Risk Assessment 03/05/2026 03/05/2025, 06/10/20 24 DTaP/Tdap/Td Vaccine (2 - Td or Tdap) 05/29/2028 05/29/2018 Colon Cancer Screening-Colonoscopy 07/16/20282017 Pneumococcal vaccine 65+ Completed 05/29/2018, 04/29 Colon Cancer Screening-CT Colonography Discontinued 07/16/2018 Colon Cancer Screening-DNA Stool Discontinued 07/16/20 Colon Cancer Screening-FIT Discontinued 07/16/2018 Colon Cancer Screening-Sigmoidoscopy Discontinued 06/29 Hepatitis C Screening Completed 04/21/2022 Hepatitis B Screening Completed 01/12/2025 Medical Devices Implanted Type Area Hitch Technician Device Identifier Shelf Expiration Date Model / Serial / Lot Goodspring [employer] Kory Stent Ureteral Double Pigtail Tria 2att63wb Ptfe [id number] - [id number] Implanted:Qty: 1 on 03/05/2025 by Dean Ambrose MD at [facility] Stent Right: Ureter [employer] Kory [id number] 10/14/2027 [id number] / / [id number] Boomerang [id number] Supple Selene-Guard Alkol Processing 4x4cm Patch Cardiovascular - [id number] Implanted:Qty: 1 on 12/06/2018 by Yoanna Dove MD PhD at [facility] Right: Iliac Butcher [employer] Kory 04/09/2023 [id number] / / [id number] [employer] Overton Mac-Loc 10.2fr 26cm Low Profile Radiopaque Sideport Distal [id number] - [id number] Implanted:Qty: 1 on 04/20/2022 at [facility] En[employer]ence Technologies 07/14/2024 [id number] / / [id number] Goodspring [employer] Kory 8fr 24cm Durometer Drainage Hole Catheter Flexible Stiffen 24-551 - [id number] Implanted:Qty: 1 on 06/08/2022 at [facility] HomeLight 09/18/2024 [id number] / / [id number] Angio Dynamics Duraflow Embosafe 15.5fr 28cm Basic 2 Lumen Kit Catheter [id number] - [id number] Implanted:Qty: 1 on 06/13/2022 by Uche Cole MD at [facility] Ang[employer] [id number] / / Explanted Type Area Hitch Technician Device Identifier Shelf Expiration Date Model / Serial / Lot Enablence Technologies Universa 7fr 24cm Radiopaque Positioner Monofilament Tether Firm [id number] - [id number] Implanted:Qty: 1 on 10/05/2022 by Dean Ambrose MD at [facility] Explanted:Qty: 1 on 05/10/2023 at [facility] Other - see comments [employer] 04/26/2025 [id number] / / [id number] Stent-10/04/2017 Implanted:10/04 (Quantity not on file) Explanted:Qty: 1 on 12/12/2018 by Nadir Holman MD at [facility] Stent Right: Ureter Description:Bard 6 x 24 sten t removed intact [employer] [id number] Universa 7fr 24cm 145cm Soft X Ray Electronics Wireman Braid Tether Guidewire - Sn/A - [id number] Implanted:Qty: 1 on 12/12/2018 by Nadir Holman MD at [facility] Explanted:Qty: 1 on 10/06/2021 by Dean Ambrose MD at [facility] Stent Right: Ureter Cook [employer] Inc 06/25/2021 [id number] / N/A / [id number] Cook [employer] [id number] Universa 7fr 24cm Radiopaque Positioner Monofilament Tether Firm - Sna - [id number] Implanted:Qty: 1 on 10/21/2020 by Dean Ambrose MD at [facility] Explanted:Qty: 1 on 05/10/2023 by Dean Ambrose MD at [facility] Stent Right: Ureter [employer] [id number] 08/04/2023 [id number] / NA / [id number] [employer] [id number] Universa 7fr 24cm Radiopaque Positioner Monofilament Tether Firm - Sna - [id number] Implanted:Qty: 1 on 10/06/2021 by Dean Ambrose MD at [facility] Explanted:Qty: 1 on 03/05/2025 by Dean Ambrose MD at [facility] Stent Right: Ureter [employer] 12/22/2023 [id number] / NA / [id number] [employer] Universa 7fr 24cm Radiopaque Positioner Monofilament Tether Firm [id number] - Sna - [id number] Implanted:Qty: 1 on 06/19/2024 by Mike Sal MD at [facility] Explanted:Qty: 1 on 03/05/2025 by Dean Ambrose MD at [facility] Stent Right: Ureter [employer] [id number] 06/09/2025 [id number] / NA / [id number] [employer] [id number] Inlay [place] 7fr 24cm Pusher Fluoro Marker Atraumatic Insertion Latex Free - [id number] Implanted:Qty: 1 on 02/05/2020 by Dean Ambrose MD at [facility] Explanted:Qty: 1 on 10/21/2020 at [facility] Right: Ureter [employer] 01/08/2023 [id number] / / [id number] Cook [employer] Universa 7fr 24cm Radiopaque Positioner Monofilament Tether Firm [id number] - [id number] Implanted:Qty: 1 on 05/10/2023 by Dean Ambrose MD at [facility] Explanted:Qty: 1 on 06/19/2024 by Mike Sal MD at [facility] Right: Ureter [employer] 09/26/2025 [id number] / / [id number] [employer] Universa 7fr 24cm Radiopaque Positioner Monofilament Tether Firm [id number] - [id number] Implanted:Qty: 1 on 11/22/2023 at [facility] Explanted:Qty: 1 on 03/05/2025 by Dean Ambrose MD at [facility] Right: Ureter [employer] 02/14/2026 [id number] / / [id number] Procedures Procedure Name Priority Date/Time Associated Diagnosis [...] 11:19 AM CDT COLONOSCOPY 07/16/2018 12:21 PM IT PROGRAMMER ANALYST DIAGNOSTIC MAMMOGRAM BILATERAL W MIKHAIL Routine 06/22/2015 11:21 AM IT PROGRAMMER ANALYST from Last 3 Months or Most Recently Relevant to Health Maintenance Results * (ABNORMAL) eGFR (03/11/2025 12:36 PM CDT) eGFR 11(L) >=60 mL/min/1. 73 m2 Comment: [...] of Race in Diagnosing Kidney Disease, JASN 202). The CKD-EPI equation should not be used for patients with unstable renal function and has not been validated in children and those over 70. Current interpretive data was last reviewed 2021. Blood 03/11/2025 12:3 6 PM CDT 03/11/2025 12:49 PM CDT Clotilde Bai DNP LAB BLOOD ORDERABLE S Final Result [facility] Department of Laboratories [place], [place] [id number] * (ABNORMAL) Differential, auto (03/11/2025 12:36 PM CDT) Pathologist [facility] Neutrophil abs 4.43 1.50 - 6.50 K/cumm Comment:Testing performed by : [facility], [address] [place] [phone] Lymphocyte abs 0.77(L) 0.80 - 3.30 K/cumm [facility] Comment:Testing performed by : [facility], [address] [place], [place] [id number] Monocyte abs 0.66 0.20 - 0.80 K/cumm [facility] Comment:Testing performed by : [facility], [address] [place], [place] [id number] Eosinophil abs 0.18 0.00 - 0.50 K/cumm [facility] Comment:Testing performed by : [facility], [address] [place], [place] [phone] Basophil abs 0.17(H) 0.00 - 0.10 K/cumm [facility] Comment:Testing performed by : [facility], [address] [place], [place] [phone] Neutrophil pct 71.3 % [facility] Comment: Interpretive Data Percent cell count reference ranges are not reported, since discordance with absolute values may lead to misinterpretation of CBC data. Current Interpretive Data was last revised on 2017. Testing performed by: [facility], [address] [place] [phone] Lymphocyte pct 12.3 % [facility] Comment: Interpretive Data Percent cell count reference ranges are not reported, since discordance with absolute values may lead to misinterpretation of CBC data. Current Interpretive Data was last revised on 2017. Testing performed by: [facility], [address] [place] [phone] Monocyte pct 10.7 % [facility] Comment: Interpretive Data Percent cell count reference ranges are not reported, since discordance with absolute values may lead to misinterpretation of CBC data. Current Interpretive Data was last revised on 2017. Testing performed by: [facility], [address] [place], [place] [phone] Eosinophil pct 2.9 % [facility] Comment: Interpretive Data Percent cell count reference ranges are not reported, since discordance with absolute values may lead to misinterpretation of CBC data. Current Interpretive Data was last revised on 2017. Testing performed by: [facility], [address] [place] [phone] Basophil pct 2.8 % [facility] Comment: Interpretive Data Percent cell count reference ranges are not reported, since discordance with absolute values may lead to misinterpretation of CBC data. Current Interpretive Data was last revised on 2017. Testing performed by: [facility], [address] [place] [phone] Blood 03/11/2025 12:3 6 PM CDT 03/11/2025 12:45 PM CDT Clotilde Bai DNP LAB BLOOD ORDERABLE S Final Result [facility] Department [place] [address] * (ABNORMAL) CBC with auto differential (03/11/2025 12:36 PM CDT) WBC 6.21 3.80 - 9.90 K/cumm Comment:Testing performed by : [facility], [address] [place] [address] Hgb 10.9(L) 11.9 - 15.5 g/dL [facility] Comment:Testing performed by : [facility], [address] [place] [address] Hct 32.9(L) 35.6 - 45.5 % [facility] Comment:Testing performed by : [facility], [address] [place] [address] Plt 203 150 - 400 K/cumm [facility] Comment:Testing performed by : [facility], [address] [place] [address] MPV 8.2 6.8 - 10.4 fL [facility] Comment:Testing performed by : [facility], [address] [place], [place] [phone] RBC 3.70(L) 3.90 - 5.20 M/cumm [facility] Comment:Testing performed by : [facility], [address] [place], [place] [phone] MCV 88.9 81.3 - 96.4 fL [facility] Comment:Testing performed by : [facility], [address] [place], [place] [phone] MCH 29.5 27.1 - 33.3 pg [facility] Comment:Testing performed by : [facility], [address] [place], [place] [phone] MCHC 33.2 32.3 - 35.7 g/dL [facility] Comment:Testing performed by : [facility], [address] [place], [place] [phone] RDW CV 15.1(H) 11.1 - 14.9 % [facility] Comment:Testing performed by : [facility], [address] [place], [place] [phone] NRBC abs 0.00 0.00 - 0.01 K/cumm [facility] Comment:Testing performed by : [facility], [address] [place], [place] [phone] Blood 03/11/2025 12:3 6 PM CDT 03/11/2025 12:45 PM CDT Clotilde Bai DNP LAB BLOOD ORDERABLE S Final Result [facility] Department [place] [address] * Prealbumin (03/11/2025 12:36 PM CDT) Prealbumin 21.0 20.0 - 40.0 mg/dL Blood 03/11/2025 12:3 6 PM CDT 03/11/2025 1:32 PM CDT Clotilde Bai DNP LAB BLOOD ORDERABLE S Final Result [facility] Department [place] [address] * (ABNORMAL) Comprehensive metabolic panel (03/11/2025 12:36 PM CDT) Sodium 138 135 - 145 mmol/L Potassium, pl 3.6 3.3 - 4.9 mmol/L [facility] Chloride 98 97 - 110 mmol/L [facility] CO2 27 22 - 32 mmol/L [facility] Anion gap 13 2 - 15 mmol/L [facility] BUN 34(H) 6 - 25 mg/dL [facility] Creatinine 4.10(H) 0.60 - 1.10 mg/dL [facility] Glucose 96 70 - 199 mg/dL [facility] Comment: Interpretive Data Fasting glucose >/= 126 [...] 2022. Calcium 11.0(H) 8.5 - 10.3 mg/dL [facility] Bilirubin, total 0.2 0.1 - 1.2 mg/dL [facility] Protein, pl 6.9 6.5 - 8.5 g/dL [facility] Albumin 3.9 3.5 - 5.0 g/dL [facility] Alk phos 59 40 - 130 Units/L [facility] ALT 6(L) 7 - 45 Units/L [facility] AST 14 10 - 45 Units/L [facility] Blood 03/11/2025 12:3 6 PM CDT 03/11/2025 12:49 PM CDT Clotilde Bai DNP LAB BLOOD ORDERABLE S Final Result [facility] Department [place] [address] * FL Fluoroscopy < 1 Hour (03/05/2025 12:02 PM CDT) Narrative [facility] - 03/05/2025 12:02 PM CDT The images from this study are not interpreted by Radiology. Please refer to the physician's procedure / OR operative note. us Dean Ambrose MD IMG FLUOROSCOPY PROCEDURE S Final Result Performing Organization Address City/[facility]/ZIP Co de Phone Number [facility] * (ABNORMAL) POC Blood Gas and Chemistries, Venous - (03/05/2025 11:10 AM CDT) pH, Will POC 7.44(H) 7.32 - 7.43 pCO2, will POC 42 40 - 50 mmHg [facility] pO2, will POC 55 mmHg [facility] Na, POC 137 135 - 145 mmol/L [facility] K POC 3.9 3.3 - 4.9 mmol/L [facility] Comment: Interpretive Data Not all point of care methods assess for hemolysis. Confirm with instrument and retest K+ if not consistent with clinical signs and symptoms. Current Interpretive Data was last revised on 2023. Cl, POC 102 97 - 110 mmol/L [facility] Ionized Ca, POC 5.09 4.50 - 5.10 mg/dL [facility] Glucose, POC 109 70 - 199 mg/dL [facility] Lactate POC 2.1(H) 0.7 - 2.0 mmol/L [facility] O2 Sat, Will POC (Mumtaz) 87 % [facility] Base excess, POC 3.9 mmol/L [facility] HCO3, Will POC 28 20 - 30 mmol/L [facility] Hct, POC 34.0(L) 36.3 - 45.3 % [facility] Total Hb, POC 11.4(L) 11.9 - 15.5 g/dL [facility] Blood 03/05/2025 11:1 0 AM CDT 03/05/2025 11:10 AM CDT Dean Ambrose MD LAB POCT ORDERABLES - DEV ICE Final Result [facility] Department [place] [address] * Hepatitis panel, acute (04/21/2022 11:19 AM CDT) Hep A IgM Nonreactive Nonreactive [facility] Comment: Interpretive Data: If Hep A IgM Ab is reported as Equivocal, a new sample should be drawn in two weeks for testing. Current interpretive data was last revised on 19. Testing performed by: [facility], [address] [place] [address]., [address] Hep B core IgM Nonreactive Nonreactive [facility] Comment: Interpretive Data If HepB Core IgM Ab is reported as Equivocal, a new sample should be drawn in two weeks for testing. Current interpretive data was last revised on 19. Testing performed by: [facility], [address] [place] [address]., [address] Hep C Ab Nonreactive Nonreactive [facility] Comment: Interpretive Data Nonreactive: Antibodies to HCV [...] last revised on 2019. Testing performed by: [facility], [address] [place] [address]., [address] HepBsAg Nonreactive Nonreactive [facility] Comment:Testing performed by : [facility], [facility] [facility], [place]., [address] Blood 04/21/2022 11:1 9 AM CDT 04/21/2022 2:30 PM CDT Sybil Carballo MD LAB MICROBIOLOGY - G ENERAL ORDERABLES Final Result [facility] [address] [facility]. Department [place] [address] * COLONOSCOPY (07/16/2018 12:21 PM IT PROGRAMMER ANALYST) Anatomical Region Laterality Modality Other Narrative Procedure Note Robbie Srivastava MD - 07/16/2018 12:21 PM CST [facility] Patient Name: Mary Jameson Procedure Date: 07/16/2018 12:21PM Date of : 1955 Admit Type: Inpatient Age: 63 Gender: Female Attending MD: Robbie Srivastava MD Room: [facility] OR POD 5 ROOM 229 Note [...] The scope was passed under direct vision.The [id number] endoscope was introduced throughthe anus and advanced [...] On: 07/16/2018 12:21 PM Recognized by the [employer] for promoting quality in endoscopy us Robbie Srivastava MD ENDOSCOPY PROCEDURES Final Result * Diagnostic Mammogram Bilateral W Mikhail (06/22/2015 11:21 AM IT PROGRAMMER ANALYST) Anatomical Region Laterality Modality Breast Bilateral Mammography 06/22/2015 11:2 1 AM IT PROGRAMMER ANALYST Narrative 06/22/2015 11:36 AM IT PROGRAMMER ANALYST MILE BARBA M.D. FINAL REPORT ACC# Date Time Exam [id number] Jun 22, 2015 11:21:00 [facility] [id number] Diag Mammogram Bilateral Technologist(s): Adriana Thibodeaux; ; [id number] Jun 22, 2015 11:21:00 [facility] [address] Dig Breast Mikhail Juan EXAMINATION: BILATERAL FULL FIELD DIGITAL DIAGNOSTIC MAMMOGRAM WITH CAD AND DIGITAL BREAST TOMOSYNTHESIS HISTORY: 60-year-old female presents for followup of a probably benign right breast mass. TECHNIQUE: Full field digital craniocaudal and mediolateral oblique views of both breasts were obtained. Computer Aided Detection was performed with [employer] 1.3 version 9.3. Digital breast tomosynthesis was [...] BARBA M.D. on Jun 22 2015 11:36A [id number] Procedure Note Provider, MD Ubaldo - 11/29/2016 MILE BARBA M.D. FINAL REPORT ACC# Date Time Exam [id number] Jun 22, 2015 11:21:00 [facility] [id number] Diag Mammogram Bilateral Technologist(s): Adriana Thibodeaux; ; [id number] Jun 22, 2015 11:21:00 [facility] [address] Dig Breast Mikhail Juan EXAMINATION: BILATERAL FULL FIELD DIGITAL DIAGNOSTIC MAMMOGRAM WITH CAD AND DIGITAL BREAST TOMOSYNTHESIS HISTORY: 60-year-old female presents for followup of a probably benign right breast mass. TECHNIQUE: Full field digital craniocaudal and mediolateral oblique views of both breasts were obtained. Computer Aided Detection was performed with [employer].3 version 9.3. Digital breast tomosynthesis was performed [...] BARBA M.D. 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 Use antibiotics, IV Fluids, and medical treatment unless specifically selected below: No intubation * Full Code Date Activated Date Inactivated Comments 06/08/2022 8:39 AM 06/09/2022 4:54 AM Care Teams Systems Lead Relationship Specialty Start Date End Date Unknown, Notinfile PCP - General 06/12/24 Yoanna Dove MD PhD Surgeon Vascular Surgery 12/09/18 Jair Waterman MD [address] [place] [address] Consulting Physician Medical Oncology 05/29/24 Serina Pedroza MD [address] [facility] [address] [place] [address] Radiation Oncologist Radiation Oncology 07/14/24
--- OUTSIDE RECORDS SUMMARY | 2025-05-29 16:12 | XMS_ITS | Clinical Summary ---
Author Organization [facility] Care Team Providers Care Picking Crew Supervisor Name Role Phone Unavailable Primary Care Provider Unavailabl e Social History Tobacco Use Types Packs/Day Years Used Date Smoking Tobacco: Never Assessed Comments Unknown Sex and Gender Information Value Date Recorded Sex Assigned at Not on file Legal Sex Female 12:05 AM CDT Gender Identity Not on file Sexual Orientation Not on file Plan of Treatment Not on file
--- NOTE | 2025-05-29 16:46 | ECG_ITS ---
Test Date: 2025-05-29 16:52:20 Measurements Intervals [place] Rate: 53 P: 76 MO: 153 QRS: 77 QRSD: 101 T: 91 QT: 451 QTc: 426 Interpretive Statements SINUS BRADYCARDIA LEFT ATRIAL ENLARGEMENT INCOMPLETE RIGHT BUNDLE BRANCH BLOCK BORDERLINE ST-T WAVE ABNORMALITY- DIFFUSE LEADS BASELINE ARTIFACT- I, III, AVR, AVL, AVF BORDERLINE ECG No previous ECG available for comparison Electronically Signed On 05-29-2025 20:06:36 CDT by Kyle Carballo D.O.
[2025-05-29 17:04] LABS: Hematocrit 41.1 % (37.0-47.0); Hemoglobin 12.9 g/dL (12.0-15.0); Immature Granulocyte Percent A 0.2 % (0-0.5); Lymphocytes Absolute Auto 0.96 K/mm3 (0.9-3.2); Mean Corpuscular HGB Conc 31.4 g/dl (32-36); Mean Corpuscular Hemoglobin 27.1 pg (26-34); Mean Corpuscular Volume 86.3 fl (80-100); Nucleated Red Blood Cells Absolute Auto 0.000 K/mm3 (0.0-0.012); Nucleated Red Blood Cells Perc 0.0 % (0.0-0.2); Platelet Count Result 224 k/mm3 (150-375); Red Blood Count 4.76 M/mm3 (4.2-5.4); White Blood Count 6.1 K/mm3 (4.5-10.0)
[2025-05-29 17:14] LABS: Alanine Aminotransferase 11 U/L (6-35); Albumin Level 3.7 g/dL (3.5-5.1); Alkaline Phosphatase 68 U/L (38-126); Anion Gap 12 mmol/L (4-12); Aspartate Amino Transferase 31 U/L (14-36); Bilirubin,Total 0.8 mg/dL (0.2-1.3); Blood Urea Nitrogen 42 mg/dL (7-17); Calcium 10.2 mg/dL (8.4-10.2); Carbon Dioxide 29 mmol/L (22-30); Chloride 91 mmol/L (98-107); Estimated CRCL calculation 8 ml/min; Estimated Glomerular Filt Rate 12; Glucose 85 mg/dL (65-110); Potassium 3.9 mmol/L (3.4-5.0); Sodium 132 mmol/L (137-145); Total Protein 6.5 g/dL (6.3-8.2)
--- NOTE | 2025-05-29 17:39 | ED_ITS ---
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 Patient reports she has been feeling ill for the past 3 days. Reports N/V, unable to keep down any food or drink, diffuse abd pain, weakness, lightheadedness. Per triage note, patient reportedly missed her dialysis treatment today. She reports constipation for the last 3-4 days, is unsure of the last bowel movement she had. Reports Hx of multiple previous abdominal surgeries and bowel obstructions. Denies fevers. <Kaylee Aburto PA-C - Last Filed: 05/29/25 20:55> Related Data Home medications: Home Medications ?Medication ?Instructions ?Recorded ?Confirmed ?Last Taken ?Type aspirin 325 mg tablet 325 mg PO DAILY 11/26/2207/2211/26/22 History 0900 carvedilol 6.25 mg tablet 6.25 mg PO BIDWM 11/26/2211/26/22 09:00 History clonazepam 1 mg tablet 0.5 mg PO BID PRN Anxiety 04/10/24 11/25/22 History furosemide 40 mg tablet 40 mg PO BID 11/26/2211/26/22 09:00 History gabapentin 300 mg capsule 300 mg PO HS 11/26/2211/25/22 21:00 History Colace 100 mg PO DAILY PRN Constipa tion 04/10/24 04/10/24 Unknown History Miralax 17 g PO DAILY PRN Constipati on 04/10/24 04/10/24 Unknown History Vitamin D3 1,000 units PO DAILY 4 04/10/24 Unknown History <Kaylee Aburto PA-C - Last Filed: 05/29/25 20:55> Allergies/Adverse reactions: Allergies Allergy/AdvReac Type Severity Reaction Status Date / Time iohexol (From contrast - CT, Allergy Mild Rash Verified 05/29/25 18:31 X-RAY) fentanyl AdvReac Other Verified 05/29/25 18:31 <Kaylee Aburto PA-C - Last Filed: 05/29/25 20:55> Review of Systems 2 Review of Systems: All systems reviewed & are unremarkable except as noted in HPI. <Kaylee Aburto PA-C - Last Filed: 05/29/25 20:55> All systems reviewed & are unremarkable except as noted in HPI and below < Kaylee Aburto PA-C - Last Filed: 05/29/25 20:55> [facility] Past Medical History Medical History: Medical History Lung nodule Anxiety History of small bowel obstruction Carotid stenosis Most recent carotid Doppler July 2022: Less than 50% stenosis right internal carotid artery and greater than 70% stenosis of the left internal carotid artery. Hypothyroidism History of GI bleed Multiple and requiring transfusion. No longer on chronic anticoagulation due to bleeds Atrial fibrillation Kidney stones Peripheral artery disease Moderate to severe bilateral lower extremity peripheral vascular disease noted on ABIs July 2022 End-stage renal disease on hemodialysis Essential hypertension Coronary artery disease <Kaylee Aburto PA-C - Last Filed: 05/29/25 20:55> Surgical History Surgical History: Surgical History History of bowel resection History of laparoscopic cholecystectomy (2000) History of vascular surgery History of cardiac radiofrequency ablation Retained ureteral stent Chronic S/P dialysis catheter insertion Right upper chest was placed and removed, currently in left upper chest History of ventral hernia repair With mesh Stenosis of right femoral artery Status post stent approximately 1994 History of abdominal aortic aneurysm repair (1997) Open repair History of four vessel coronary artery bypass graft (1997) <Kaylee Aburto PA-C - Last Filed: 05/29/25 20:55> Family History Family History: Family History Sibling Acute myocardial infarction Hx of CABG Sibling , As a child Third degree burn injury Sibling Opiate abuse, continuous Mother Age older than 80 years Father , Age greater than 80 Acute myocardial infarction, Onset Age: 45 Sibling Acute myocardial infarction Heart disease <Kaylee Aburto PA-C - Last Filed: 05/29/25 20:55> Social History Social History: Social History Social History: Surrogate medical decision maker: Beverley Seth, daughter Code status: Full code Smoking packs per day: 2 Smoking cigarettes per day: 40.0 Years smoked: 28 Smoking pack-years: 56.00 Smoking status: Former smoker Smoking end date: 07/30/97 Alcohol intake: never Substance use: never Do You Feel Safe in your Home?: Yes Lack of Transportation: No Lack of Food: Never True Current Housing: I Have Housing Concerned About Future Housing: No Difficulty Paying Gas/Electric Bills: No Difficulty Paying for Meds: No Currently Unemployed: No Education: High School Diploma/GED Difficulty w/ Childcare or Family Care: No Additional living arrangements comments: She is and lives alone. She has 1 of her 3 daughters living nearby. 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 Spiritual care concerns: No <Kaylee Aburto PA-C - Last Filed: 05/29/25 20:55> Exam 2 Narrative: GENERAL: Elderly, frail/thin, non-toxic, in no acute distress. HEAD: Normocephalic, atraumatic. RESPIRATORY: Airway patent, respirations nonlabored. Clear to auscultation bilaterally, no rales, rhonchi, wheezing. CARDIOVASCULAR: Regular rate and rhythm without murmurs, rubs, or gallops. ABDOMINAL: Soft, mid diffuse tenderness, nondistended. Hypoactive BS. MUSCULOSKELETAL: Moves all extremities. No gross deformities. No peripheral edema. SKIN: Warm, dry, normal color. NEURO: A&O X3. Speech clear. Cranial nerves II-XII grossly intact. Steady gait. No ataxic movements. No focal deficits. PSYCHIATRIC: Appropriate mood and affect. Normal interaction. <Kaylee Aburto PA-C - Last Filed: 05/29/25 20:55> Course PLANT FLOOR AUTOMATION MANAGER/PA Physician Supervision This visit was performed by both a physician and an APC. I performed all aspects of the MDM as documented. <Miguel Angel Garcia MD - Last Filed: 05/29/25 22:25> Vital Signs Vital signs: Vital Signs Temperature 36.4 C L 05/29/25 16:09 Pulse Rate 67 05/29/25 16:09 Respiratory Rate 18 05/29/25 16:09 Blood Pressure 144/55 H 05/29/25 16:09 Pulse Oximetry 98 05/29/25 16:09 Oxygen Delivery Room Air 05/29/25 16:09 Temperature 36.4 C L 05/29/25 16:09 Pulse Rate 57 L 05/29/25 20:01 Respiratory Rate 19 05/29/25 20:01 Blood Pressure 205/86 H 05/29/25 20:01 Pulse Oximetry 99 05/29/25 20:01 Oxygen Delivery Room Air 05/29/25 16:47 <Kaylee Aburto PA-C - Last Filed: 05/29/25 20:55> Vital Signs Temperature 36.4 C L 05/29/25 16:09 Pulse Rate 67 05/29/25 16:09 Respiratory Rate 18 05/29/25 16:09 Blood Pressure 144/55 H 05/29/25 16:09 Pulse Oximetry 98 05/29/25 16:09 Oxygen Delivery Room Air 05/29/25 16:09 Temperature 36.4 C L 05/29/25 16:09 Pulse Rate 57 L 05/29/25 20:01 Respiratory Rate 19 05/29/25 20:01 Blood Pressure 205/86 H 05/29/25 20:01 Pulse Oximetry 99 05/29/25 20:01 Oxygen Delivery Room Air 05/29/25 16:47 <Miguel Angel Garcia MD - Last Filed: 05/29/25 22:25> MDM - Weakness MDM Narrative Medical decision making narrative: Patient presented to ED with weakness, nausea/vomiting for the past 3 days. History of neuroendocrine/intestinal cancer, not currently undergoing treatment. History of previous bowel obstructions. Also reportedly missed her dialysis treatment today. Vital signs are stable upon arrival. Patient is in no acute distress, but does appear frail/weak. Cbc without leukocytosis or anemia. CMP with sodium 132, chloride 91. Creatinine stable at 3.8. Stable potassium and other electrolytes. UA concerning for infection with 3+ leuk esterase, 51-100 WBC. Sent for culture. Viral swabs are negative. Chest x-ray with bilateral pneumonia. CT scan of abdomen/pelvis was obtained and showing evidence of early/partial small bowel obstruction. Blood cultures obtained. Lactic acid within normal range at 0.7. Rocephin and azithromycin started in the ED for CAP/UTI Discussed lab and imaging findings with patient, need for hospitalization. Patient and family in agreement with plan. Discussed case with Dr. Gonzalez, general surgery, advised will consult, 18 Nepali NG tube, NPO, repeat imaging in the a.m.. Discussed case with Dr. Limon, nephrology regarding dialysis status, will consult and arrange for dialysis in the future. Discussed case with Carmita Barnes, PLANT FLOOR AUTOMATION MANAGER hospitalist, accepted patient for admission. <Kaylee Aburto PA-C - Last Filed: 05/29/25 20:55> Medical Records Attestation: I reviewed the patient's medical records. <Kaylee Aburto PA-C - Last Filed: 05/29/25 20:55> Lab Data Attestation: I reviewed the patient's lab results. <Kaylee Aburto PA-C - Last Filed: 05/29/25 20:55> Result diagrams: 05/29/25 16:57 05/29/25 16:57 <Kaylee Aburto PA-C - Last Filed: 05/29/25 20:55> Labs: Lab Results 05/29/25 05/29/25 05/29/25 Range/Units 16:57 18:33 19:51 WBC 6.1 (4.5-10.0) K/mm3 RBC 4.76 (4.2-5.4) M/mm3 Hgb 12.9 (12.0-15.0) g/dL Hct 41.1 (37.0-47.0) % MCV 86.3 (80-100) fl MCH 27.1 (26-34) pg MCHC 31.4 L (32-36) g/dl RDW 16.1 H (11.5-14.5) % Plt Count 224 (150-375) k/mm3 MPV 9.8 (7.4-10.4) fl Immature Gran % (Auto) 0.2 (0-0.5) % Neut % (Auto) 70.0 (45.5-73.1) % Lymph % (Auto) 15.7 L (18.3-44.2) % [place] % (Auto) 11.0 H (2.6-8.5) % Eos % (Auto) 1.6 (0-4.4) % Baso % (Auto) 1.5 H (0.2-1.2) % Lymph # (Auto) 0.96 (0.9-3.2) K/mm3 [place] # (Auto) 0.7 H (0.1-0.6) K/mm3 Eos # (Auto) 0.1 (0-0.3) K/mm3 Baso # (Auto) 0.1 (0.0-0.1) K/mm3 Abs Immat Gran (auto) 0.01 (0.00-0.031) K/mm3 Absolute Neuts (auto) 4.3 (1.3-6.7) K/mm3 Absolute Nucleated RBC 0.000 (0.0-0.012) K/mm3 Nucleated RBC % 0.0 (0.0-0.2) % Sodium 132 L (137-145) mmol/L Potassium 3.9 (3.4-5.0) mmol/L Chloride 91 L (98-107) mmol/L Carbon Dioxide 29 (22-30) mmol/L Anion Gap 12 (4-12) mmol/L BUN 42 H (7-17) mg/dL Creatinine 3.80 H (0.7-1.0) mg/dL Estim Creat Clear Calc 8 ml/min Estimated GFR 12 L (59 - ) Glucose 85 (65-110) mg/dL Lactic Acid 0.7 (0.7-2.0) mmol/L Calcium 10.2 (8.4-10.2) mg/dL Magnesium 2.4 H (1.6-2.3) mg/dL Total Bilirubin 0.8 (0.2-1.3) mg/dL AST 31 (14-36) U/L ALT 11 (6-35) U/L Alkaline Phosphatase 68 (38-126) U/L Total Protein 6.5 (6.3-8.2) g/dL Albumin 3.7 (3.5-5.1) g/dL Urine Color Yellow (Yellow) Urine Appearance Cloudy H (Clear) Urine pH 6.0 (5.0-9.0) Ur Specific [place] 1.010 (1.001-1.035) Urine Protein 1+ H (Negative) mg/dL Urine Glucose (UA) Negative (Negative) mg/dL Urine Ketones Trace H (Negative) mg/dL Ur Blood (Man) Negative (Negative) Urine Nitrate Negative (Negative) Urine Bilirubin Negative (Negative) Urine Urobilinogen 0.2 (<2.0) mg/dL Add Ur Microanalysis Reviewed Leukocyte Esterase Rfl 3+ H (Negative) BERTHA/UL Urine RBC 3-5 H (0-2) /hpf Urine WBC 51-100 H (0-3) /hpf Ur Squamous Epith Cells Few (Few) /hpf Urine Bacteria Rare /hpf Urine Casts 3-5 Influenza A (RT-PCR) Negative (Negative) Influenza B (RT-PCR) Negative (Negative) RSV (RT-PCR) Negative (Negative) SARS-CoV-2 RNA (RT-PCR) Negative (Negative) <Kaylee Aburto PA-C - Last Filed: 05/29/25 20:55> Lab Results 05/29/25 05/29/25 05/29/25 Range/Units 16:57 18:33 19:51 WBC 6.1 (4.5-10.0) K/mm3 RBC 4.76 (4.2-5.4) M/mm3 Hgb 12.9 (12.0-15.0) g/dL Hct 41.1 (37.0-47.0) % MCV 86.3 (80-100) fl MCH 27.1 (26-34) pg MCHC 31.4 L (32-36) g/dl RDW 16.1 H (11.5-14.5) % Plt Count 224 (150-375) k/mm3 MPV 9.8 (7.4-10.4) fl Immature Gran % (Auto) 0.2 (0-0.5) % Neut % (Auto) 70.0 (45.5-73.1) % Lymph % (Auto) 15.7 L (18.3-44.2) % [place] % (Auto) 11.0 H (2.6-8.5) % Eos % (Auto) 1.6 (0-4.4) % Baso % (Auto) 1.5 H (0.2-1.2) % Lymph # (Auto) 0.96 (0.9-3.2) K/mm3 [place] # (Auto) 0.7 H (0.1-0.6) K/mm3 Eos # (Auto) 0.1 (0-0.3) K/mm3 Baso # (Auto) 0.1 (0.0-0.1) K/mm3 Abs Immat Gran (auto) 0.01 (0.00-0.031) K/mm3 Absolute Neuts (auto) 4.3 (1.3-6.7) K/mm3 Absolute Nucleated RBC 0.000 (0.0-0.012) K/mm3 Nucleated RBC % 0.0 (0.0-0.2) % Sodium 132 L (137-145) mmol/L Potassium 3.9 (3.4-5.0) mmol/L Chloride 91 L (98-107) mmol/L Carbon Dioxide 29 (22-30) mmol/L Anion Gap 12 (4-12) mmol/L BUN 42 H (7-17) mg/dL Creatinine 3.80 H (0.7-1.0) mg/dL Estim Creat Clear Calc 8 ml/min Estimated GFR 12 L (59 - ) Glucose 85 (65-110) mg/dL Lactic Acid 0.7 (0.7-2.0) mmol/L Calcium 10.2 (8.4-10.2) mg/dL Magnesium 2.4 H (1.6-2.3) mg/dL Total Bilirubin 0.8 (0.2-1.3) mg/dL AST 31 (14-36) U/L ALT 11 (6-35) U/L Alkaline Phosphatase 68 (38-126) U/L Total Protein 6.5 (6.3-8.2) g/dL Albumin 3.7 (3.5-5.1) g/dL Urine Color Yellow (Yellow) Urine Appearance Cloudy H (Clear) Urine pH 6.0 (5.0-9.0) Ur Specific [place] 1.010 (1.001-1.035) Urine Protein 1+ H (Negative) mg/dL Urine Glucose (UA) Negative (Negative) mg/dL Urine Ketones Trace H (Negative) mg/dL Ur Blood (Man) Negative (Negative) Urine Nitrate Negative (Negative) Urine Bilirubin Negative (Negative) Urine Urobilinogen 0.2 (<2.0) mg/dL Add Ur Microanalysis Reviewed Leukocyte Esterase Rfl 3+ H (Negative) BERTHA/UL Urine RBC 3-5 H (0-2) /hpf Urine WBC 51-100 H (0-3) /hpf Ur Squamous Epith Cells Few (Few) /hpf Urine Bacteria Rare /hpf Urine Casts 3-5 Influenza A (RT-PCR) Negative (Negative) Influenza B (RT-PCR) Negative (Negative) RSV (RT-PCR) Negative (Negative) SARS-CoV-2 RNA (RT-PCR) Negative (Negative) <Miguel Angel Garcia MD - Last Filed: 05/29/25 22:25> Imaging Data Attestation: I personally reviewed and interpreted this imaging study as follows: < Kaylee Aburto PA-C - Last Filed: 05/29/25 20:55> Radiologist's impression: ITS Impressions Chest X-Ray 05/29/25 17:26 Impression: Bilateral pneumonia Abdomen/Pelvis CT 05/29/25 19:10 IMPRESSION: Right double-J ureteral stent is noted. There is mild right hydronephrosis. The left kidneys atrophy. There is fluid filled distended small bowel loops with multiple air-fluid levels may represent partial to early small bowel obstruction. All CT scans at this facility are performed using low dose modulation techniques as appropriate to perform exam including the following: automated exposure control; use of iterative reconstruction technique; adjustment of the mA and/or kV according to patient size (this includes techniques or standardized protocols for targeted exams where dose is matched to indication/reason for exam). <SAI Whalen Last Filed: 05/29/25 20:55> ECG Data EKG #1: Attestation: I personally reviewed and interpreted this ECG as follows: <SAI Whalen Last Filed: 05/29/25 20:55> ECG completion date: 05/29/25 <SAI Whalen Last Filed: 05/29/25 20:55> ECG completion time: 16:52 <SAI Whalen Last Filed: 05/29/25 20:55> EKG Interpretation: bradycardia (53), sinus rhythm and non-specific ST changes <SAI Whalen Last Filed: 05/29/25 20:55> Discharge Plan Discharge Clinical Impression: Partial small bowel obstruction, End-stage renal disease on hemodialysis, Neuroendocrine cancer Pneumonia Qualifiers: Pneumonia type: due to unspecified organism Laterality: bilateral Lung location: unspecified part of lung Qualified Code(s): J18.9 - Pneumonia, unspecified organism UTI (urinary tract infection) Qualifiers: Urinary tract infection type: acute cystitis Hematuria presence: with hematuria Qualified Code(s): N30.01 - Acute cystitis with hematuria <SAI Whalen Last Filed: 05/29/25 20:55> Patient Disposition: Still a Patient <SAI Whalen Last Filed: 05/29/25 20:55> Condition: Stable <SAI Whalen Last Filed: 05/29/25 20:55> Patient Language: Botswanan <SAI Whalen Last Filed: 05/29/25 20:55> Prescriptions: No Action furosemide 40 mg tablet 40 mg PO BID carvedilol 6.25 mg tablet 6.25 mg PO BIDWM aspirin 325 mg Tablet 325 mg PO DAILY clonazepam 1 mg tablet 0.5 mg PO BID PRN (Reason: Anxiety) gabapentin 300 mg capsule 300 mg PO HS Colace 100 mg tablet 100 mg PO DAILY PRN (Reason: Constipation) Miralax 17 g powder 17 g PO DAILY PRN (Reason: Constipation) Vitamin D3 tablet 1,000 units PO DAILY losartan 25 mg Tablet 50 mg PO DAILY Qty: 30 0RF hydralazine 25 mg Tablet 50 mg PO BID Qty: 60 0RF nifedipine [Procardia XL] 30 mg Tablet Extended Release 24hr 90 mg PO DAILY Qty: 90 0RF <Kaylee Aburto PA-C - Last Filed: 05/29/25 20:55> Follow-up/Referrals: PHYSICIAN,PRIMING MACHINE OPERATOR [Primary Care Provider, Internal Medicine] <Kaylee Aburto PA-C - Last Filed: 05/29/25 20:55>
--- OUTSIDE RECORDS SUMMARY | 2025-05-29 17:53 | XMS_ITS | Encounter Summary ---
Author Organization [facility] Address [address] [place] [address] Phone Care Team Providers Care Press Puller Name Role Phone Yoanna Dove MD PhD Unavailable [phone] Jair Waterman MD Unavailable Unknown, Notinfile Primary Care Provider Unavail able Serina Pedroza MD Unavailable [phone] Encounter Details Date Type Department Care Team (Late st Contact Info) Description 05/28/2025 Telephone [facility] Medicine Oncology [address] [place] [address] Jair Waterman MD [address] [facility] [address] [place] [address] Social History Tobacco Use Types Packs/Day Years Used Date Smoking Tobacco: Former Cigarettes 2 28 1 970 - 1997 Smokeless Tobacco: Never Alcohol Use Standard Drinks/Week Comments Never 0 (1 standard drink = 0.6 oz pur e alcohol) [facility] Utilities Answer Date Recorded In the past [...] often do you attend chur ch or jewish services? Patient unable to answer 01/13/2025 Do you belong to any clubs o r organizations such as orthodox groups, unions, fraternal or athletic groups, or [...] any time in the past 12 m 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 She has reported having stomach cramping around belly button area, and sometimes gurgling across grown area. Patient reports when she eats, she gets nausea and vomits up the food and is feeling unable to eat; feeling weak; no fevers or chills; does feel like her heart is racing and SOB when ambulating. [facility] in [place], [facility] would be closest if needs to go to ER for evaluation; but her daughter is on way and will have her call me. Do patric Guajardo [phone], patient's daughter called back and said the symptoms started yesterday and she was concerned; and continue to get worse. called and said it started yesterday and getting worse. Discussed with Ruchi to take her Mom to the emergency room and they agreed would go to the closest one, [facility] in [place], [place]: I called report to their ER, spoke with Corrine; she will obtain medical records from [facility] but asked if I could fax the last office note with Dr. Randhawa FAX [phone]. Updated Dr[address] Waterman. documented in this encounter Plan of Treatment Not on file documented as of this encounter Visit Diagnoses Not on filedocumented in this encounter Care Teams Press Puller Relationship Specialty Start Date End Date Unknown, Notinfile PCP - General 06/12/24 Yoanna Dove MD PhD Surgeon Vascular Surgery 12/09/18 Jair Waterman MD [address] [place] [address] Consulting Physician Medical Oncology 05/29/24 Serina Pedroza MD [address] [facility] [address] [place] [address] Radiation Oncologist Radiation Oncology 07/14/24 documented as of this encounter
--- OUTSIDE RECORDS SUMMARY | 2025-05-29 17:53 | XMS_ITS | Encounter Summary ---
Author Organization [facility] Health Address [address] [place] [address] Care Team Providers Care Medical Equipment Sales Name Role Phone Radha Murphy MD Primary Care Provider [phone] Swapnil Dill MD Unavailable Unavailable Radha Murphy MD Unavailable [phone] Swapnil Dill MD Unavailable Unavailable Radha Murphy MD Unavailable [phone] Encounter Details Date Type Department Care Team (Late st Contact Info) Description 01/10/2018 [facility] Outpatient Visit [facility] [address] [place] [address] [place] [address] [place] [id number] Social History Tobacco Use Types Packs/Day Years Used Date Smoking Tobacco: Former Cigarettes Q uit: 07/30/1997 Smokeless Tobacco: Never Alcohol Use Standard Drinks/Week Comments No 0 (1 standard drink = 0.6 oz pur e alcohol) Comments Unknown Sex and Gender Information Value Date Recorded Sex Assigned at Not on file Legal Sex Female 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 [id number] PCP - General Family Medicine 02/03/21 Swapnil Dill MD PCP - [facility] 03/06/22 05/08/22 Radha Murphy MD [address] [place] [address] PCP - [facility] 05/09/22 05/29/23 Swapnil Dill MD PCP - [facility] 05/30/23 11/26/24 Radha Murphy MD [address] [place] [address] PCP - [facility] 11/27/24 documented as of this encounter
--- OUTSIDE RECORDS SUMMARY | 2025-05-29 17:53 | XMS_ITS | Encounter Summary ---
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 Gender Identity Not on file Sexual Orientation [...] documented as of this encounter Care Teams Supervisor Carding Relationship Specialty Start Date End Date Radha Murphy MD [address] [place] [address] PCP - General Family Medicine 11/13/18 06/11/24 Unknown, Notinfile PCP - General 06/12/24 Yoanna Dove MD PhD [address] [place] [address] Surgeon Vascular Surgery 12/09/18 Jair Waterman MD [address] [place] [address] Consulting Physician Medical Oncology 05/29/24 Serina Pedroza MD [address] [facility] [address] [place] [address] Radiation Oncologist Radiation Oncology 07/14/24 documented as of this encounter
--- OUTSIDE RECORDS SUMMARY | 2025-05-29 17:53 | XMS_ITS ---
Author Organization [facility] al Address [address] [place] [address] Care Team Providers Care Privacy Specialist Name Role Phone Yoanna Dove MD PhD Unavailable [phone] Jair Waterman MD Unavailable [phone] Unknown, Notinfile Primary Care Provider Unavail able Serina Pedroza MD Unavailable [phone] Dialysis Access Sites Type Status Location Placement [...] 11:19 AM CDT COLONOSCOPY 07/16/2018 12:21 PM MIXING ENGINEER DIAGNOSTIC MAMMOGRAM BILATERAL W MIKHAIL Routine 06/22/2015 11:21 AM MIXING ENGINEER from Last 3 Months or Most Recently [...] Pt felt weird Nitrofurantoin Diarrhea Low 01/26/2020 Rhzrnwb-Klw-Ksf Reductase Inhibitors Muscle pain Medium 07/19/2022 Multiple [...] left lung 05/27/2024 Overview (06/11/2024): Hospital #: [id number] Taken:05/06/2024 Received:05/06/2024 Reported: 05/08/2024 Patient Type: [facility] Ancillary Service: Pulmonary Location: Physician(s): Luiz Landers [...] apical pulmonary mass on PET/CT 09/30/24 - [place] [facility] c/[facility] Assessment & Plan (06/03/2024 2:13 PM MIXING ENGINEER): Follows with Dr. 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 - serotonin serum 367, chromogranin A - 399 - urine 5 HIAA pending - holding octreotide as no BM for over 24 hrs Generalized weakness 05/27/2024 Assessment & Plan (06/03/2024 2:16 PM MIXING ENGINEER): 2/2 dehydration and diarrhea discussed elsewhere PT - home with family/home with initial 24 hour supervision/home. Daughter will take home and supervise initially at home while patient regains strength Atrial fibrillation 05/27/2024 Assessment & Plan (06/03/2024 2:16 PM MIXING ENGINEER): S/p ablation. NSR on admission - Prior [...] (06/12/2022): Added automatically from request for surgery [id number] Assessment & Plan (01/13/2025 8:32 AM CDT): [...] BID Assessment & Plan (06/03/2024 2:11 PM MIXING ENGINEER): HD on Mondays and Fridays - nephrology following; s/p HD on 05/30, 06/02 - PTH 196 Assessment & Plan (06/13/2022 2:47 PM MIXING ENGINEER): Patient seen today for malfunctioning subclavian Perma [...] (11/15/2018): Added automatically from request for surgery [id number] Sciatica 07/11/2018 Assessment & Plan (07/11/2018 4:12 AM MIXING ENGINEER): With MRI spine earlier this year w/o evidence of central canal stenosis. Seen by orthopedic surgery for this and started on Celebrex. Peripheral neuropathy 07/11/2018 Assessment & Plan (05/28/2024 6:23 PM CDT): On gabapentin 300 nightly Assessment & Plan (07/11/2018 5:50 AM MIXING ENGINEER): Peripheral vascular neuropathy. Resume gabapentin. Check B12. [...] nightly Assessment & Plan (07/19/2018 12:07 PM MIXING ENGINEER): She has a long vascular history s/p aortobifemoral and fem-fem bypass with recurrent claudication s/p LOCOMOTIVE ENGINEER DIESEL stent x 2 to R aortofem limb [...] BID. Assessment & Plan (07/18/2018 12:40 PM MIXING ENGINEER): She has a long vascular history s/p aortobifemoral and fem-fem bypass with recurrent claudication s/p LOCOMOTIVE ENGINEER DIESEL stent x 2 to R aortofem limb [...] BID. Assessment & Plan (07/17/2018 2:30 PM MIXING ENGINEER): She has a long vascular history s/p aortobifemoral and fem-fem bypass with recurrent claudication s/p LOCOMOTIVE ENGINEER DIESEL stent x 2 to R aortofem limb [...] BID. Assessment & Plan (07/16/2018 10:57 AM MIXING ENGINEER): She has a long vascular history s/p aortobifemoral and fem-fem bypass with recurrent claudication s/p LOCOMOTIVE ENGINEER DIESEL stent x 2 to R aortofem limb [...] procedure Assessment & Plan (07/15/2018 2:08 PM MIXING ENGINEER): She has a long vascular history s/p aortobifemoral and fem-fem bypass with recurrent claudication s/p LOCOMOTIVE ENGINEER DIESEL stent x 2 to R aortofem limb [...] procedure. Assessment & Plan (07/14/2018 12:52 PM MIXING ENGINEER): She has a long vascular history s/p aortobifemoral and fem-fem bypass with recurrent claudication s/p LOCOMOTIVE ENGINEER DIESEL stent x 2 to R aortofem limb [...] drip Assessment & Plan (07/13/2018 5:26 PM MIXING ENGINEER): She has a long vascular history s/p aortobifemoral and fem-fem bypass with recurrent claudication s/p LOCOMOTIVE ENGINEER DIESEL stent x 2 to R aortofem limb [...] drip Assessment & Plan (07/12/2018 6:40 PM MIXING ENGINEER): She has a long vascular history s/p aortobifemoral and fem-fem bypass with recurrent claudication s/p LOCOMOTIVE ENGINEER DIESEL stent x 2 to R aortofem limb [...] drip Assessment & Plan (07/11/2018 5:37 AM MIXING ENGINEER): H/o aortobifemoral and fem-fem bypass with recurrent claudication s/p LOCOMOTIVE ENGINEER DIESEL stent x 2 to R aortofem limb [...] 07/11/2018 Assessment & Plan (07/19/2018 12:08 PM MIXING ENGINEER): Patient with recurrent UTI over the past 3 years and recent admission in April for pyelo. Has history of chronic right ureteral obstruction and undergoes yearly stent exchanges with Dr. Carney here. -Urine culture with no growth, CTX discontinued Assessment & Plan (07/18/2018 12:43 PM MIXING ENGINEER): Patient with recurrent UTI over the past 3 years and recent admission in April for pyelo. Has history of chronic right ureteral obstruction and undergoes yearly stent exchanges with Dr. Carney here. -Urine culture with no growth, CTX discontinued Assessment & Plan (07/17/2018 2:31 PM MIXING ENGINEER): Patient with recurrent UTI over the past 3 years and recent admission in April for pyelo. Has history of chronic right ureteral obstruction and undergoes yearly stent exchanges with Dr. Carney here. -Urine culture with no growth, CTX discontinued Assessment & Plan (07/16/2018 11:01 AM MIXING ENGINEER): Patient with recurrent UTI over the past 3 years and recent admission in April for pyelo. Has history of chronic right ureteral obstruction and undergoes yearly stent exchanges with Dr. Carney here. -Urine culture with no growth, CTX discontinued Assessment & Plan (07/15/2018 2:09 PM MIXING ENGINEER): Patient with recurrent UTI over the past 3 years and recent admission in April for pyelo. Has history of chronic right ureteral obstruction and undergoes yearly stent exchanges with Dr. Carney here. -Urine culture with no growth, CTX discontinued Assessment & Plan (07/12/2018 6:40 PM MIXING ENGINEER): Patient with recurrent UTI over the past 3 years and recent admission in April for pyelo. Has history of chronic right ureteral obstruction and undergoes yearly stent exchanges with Dr. Carnye here. -Urine culture with no growth, CTX discontinued Assessment & Plan (07/11/2018 5:45 AM MIXING ENGINEER): Patient with recurrent UTI over the past [...] 07/11/2018 Assessment & Plan (07/19/2018 12:08 PM MIXING ENGINEER): She presented with anemia down to 6.8 [...] daily Assessment & Plan (07/18/2018 12:41 PM MIXING ENGINEER): She presented with anemia down to 6.8 [...] pill. Assessment & Plan (07/17/2018 2:33 PM MIXING ENGINEER): She presented with anemia down to 6.8 [...] PPI Assessment & Plan (07/16/2018 10:58 AM MIXING ENGINEER): She presented with anemia down to 6.8 [...] problems. Assessment & Plan (07/15/2018 2:09 PM MIXING ENGINEER): She presented with anemia down to 6.8 [...] evening. Assessment & Plan (07/14/2018 12:51 PM MIXING ENGINEER): She presented with anemia down to 6.8 [...] night Assessment & Plan (07/13/2018 5:22 PM MIXING ENGINEER): She presented with anemia down to 6.8 [...] then Assessment & Plan (07/12/2018 6:38 PM MIXING ENGINEER): She presented with anemia down to 6.8 [...] then Assessment & Plan (07/11/2018 5:49 AM MIXING ENGINEER): Normocytic anemia of 6.8 in setting of [...] 07/11/2018 Assessment & Plan (07/19/2018 12:08 PM MIXING ENGINEER): Symptomatically improved after transfusion. Likely 2/2 stress of anemia. - Discontinue telemetry Assessment & Plan (07/18/2018 12:43 PM MIXING ENGINEER): Symptomatically improved after transfusion. Likely 2/2 stress of anemia. - Discontinue telemetry Assessment & Plan (07/17/2018 2:30 PM MIXING ENGINEER): Symptomatically improved after transfusion. Likely 2/2 stress of anemia Assessment & Plan (07/16/2018 11:00 AM MIXING ENGINEER): Symptomatically improved after transfusion. Likely 2/2 stress of anemia Assessment & Plan (07/15/2018 2:11 PM MIXING ENGINEER): Symptomatically improved after transfusion. She is having runs of NSVT on telemetry for which she might benefit from a beta-ubaldo. Assessment & Plan (07/14/2018 12:52 PM MIXING ENGINEER): Symptomatically improved after transfusion. She is having runs of NSVT on telemetry for which she might benefit from a beta-ubaldo. Assessment & Plan (07/13/2018 5:25 PM MIXING ENGINEER): Symptomatically improved after transfusion. She is having runs of NSVT on telemetry for which she might benefit from a beta-ubaldo. Assessment & Plan (07/11/2018 5:51 AM MIXING ENGINEER): H/o PVCs s/p RF ablation; not on BB. Reports ongoing palpitations w/o associated CP. EKG as above. -monitor on tele -correct anemia -trend troponins as above, check TSH Severe malnutrition 07/11/2018 Assessment & Plan (05/28/2024 6:22 PM CDT): RD consulted. Supplements ordered Gastrointestinal hemorrhage 07/10/2018 Overview (07/15/2018): Added automatically from request for surgery [id number] Hyperlipidemia 11/10/2016 Abnormal results of pulmonary function [...] CABG Assessment & Plan (07/19/2018 12:08 PM MIXING ENGINEER): CAD s/p CABG, currently without chest pain. Serial troponins were negative. -Continue Zetia - ASA restarted - Discontinue plavix on elquis Assessment & Plan (07/18/2018 12:43 PM MIXING ENGINEER): CAD s/p CABG, currently without chest pain. Serial troponins were negative. -Continue Zetia - ASA restarted - Discontinue plavix on elquis Assessment & Plan (07/17/2018 2:31 PM MIXING ENGINEER): CAD s/p CABG, currently without chest pain. Serial troponins were negative. -Continue Zetia - ASA restarted - Discontinue plavix as no more cardiac indication for it - Planning to start eliquis instead Assessment & Plan (07/16/2018 11:00 AM MIXING ENGINEER): CAD s/p CABG, currently without chest pain. Serial troponins were negative. -Continue Zetia -Heparin drip as noted elsewhere in place of ASA/Plavix Assessment & Plan (07/15/2018 2:08 PM MIXING ENGINEER): CAD s/p CABG, currently without chest pain. Serial troponins were negative. -Continue Zetia -Heparin drip as noted elsewhere in place of ASA/Plavix Assessment & Plan (07/14/2018 12:51 PM MIXING ENGINEER): CAD s/p CABG, currently without chest pain. Serial troponins were negative. -Continue Zetia -Heparin drip as noted elsewhere in place of ASA/Plavix Assessment & Plan (07/13/2018 5:22 PM MIXING ENGINEER): CAD s/p CABG, currently without chest pain. -Continue Zetia -Heparin drip as noted elsewhere in place of ASA/Plavix -Serial troponins were negative Assessment & Plan (07/12/2018 6:38 PM MIXING ENGINEER): CAD s/p CABG, currently without chest pain. Holding ASA/Plavix as noted elsewhere. -Continue Zetia -Serial troponins were negative Assessment & Plan (07/11/2018 5:42 AM MIXING ENGINEER): CAD s/p CABG; currenlty w/o chest pain [...] ileus Assessment & Plan (06/03/2024 2:11 PM MIXING ENGINEER): Prior to admission, the patient was on [...] discharge Assessment & Plan (06/13/2022 2:39 PM MIXING ENGINEER): Chronic stable hypertension be controlled with medications. Continue monitoring blood pressures and taking medications as per PCP. Assessment & Plan (07/19/2018 12:08 PM MIXING ENGINEER): She has a fairly wide pulse pressure so despite high systolic pressures, her actual MAP is not particularly high. She is now starting to be hypertensive - restarting lisinopril Assessment & Plan (07/18/2018 12:42 PM MIXING ENGINEER): She has a fairly wide pulse pressure so despite high systolic pressures, her actual MAP is not particularly high. She is not currently tachycardic or hypertensive - Continue holding lisinopril Assessment & Plan (07/17/2018 2:30 PM MIXING ENGINEER): She has a fairly wide pulse pressure so despite high systolic pressures, her actual MAP is not particularly high. She may benefit from a beta-ubaldo for her NSVT, but pulse might be too low. [facility] has also resolved - Continue lisinopril though might remove if pressures become too low Assessment & Plan (07/16/2018 11:00 AM MIXING ENGINEER): She has a fairly wide pulse pressure so despite high systolic pressures, her actual MAP is not particularly high. She may benefit from a beta-ubaldo for her NSVT, but pulse might be too low. [facility] has also resolved -Restarting lisinopril this AM. Assessment & Plan (07/15/2018 2:11 PM MIXING ENGINEER): She has a fairly wide pulse pressure [...] MAX-inhibitor Assessment & Plan (07/14/2018 12:52 PM MIXING ENGINEER): She has a fairly wide pulse pressure [...] MAX-inhibitor Assessment & Plan (07/13/2018 5:26 PM MIXING ENGINEER): She has a fairly wide pulse pressure so despite high systolic pressures, her actual MAP is not particularly high. She may benefit from a beta-ubaldo for her NSVT. -Holding lisinopril in setting of recent contrast load -Will discuss beta-ubaldo versus ACEi Assessment & Plan (07/12/2018 6:39 PM MIXING ENGINEER): She has a fairly wide pulse pressure. -Holding lisinopril in setting of recent contrast load, restart if creatinine is stable Assessment & Plan (07/11/2018 5:50 AM MIXING ENGINEER): Hold home lisinopril given low hemoglobin although will likely be able to start in AM. Atherosclerosis of alutiiq ar teries of extremities with intermittent claudication, [...] drink = 0.6 oz pur e alcohol) [facility] Utilities Answer Date Recorded In the past 12 months has [employer], gas, oil, or water [employer] threatened to shut off services in your [...] answer 01/13/2025 How often do you attend [facility] or congregation services? Patient unable to answer 01/13/2025 Do you belong to any clubs o r organizations such as judaism groups, unions, fraternal or athletic groups, or [...] time in the past 12 m [facility], were you homeless or living in a halfway (including now)? Patient unable to answer 01/13/2025 [...] on file Legal Sex Female 3:32 PM MIXING ENGINEER Gender Identity Not on file Sexual Orientation [...] * (ABNORMAL) eGFR (03/11/2025 12:36 PM CDT) [facility] eGFR 11(L) >=60 mL/min/1. 73 m2 Comment: [...] DNP LAB BLOOD ORDERABLE S Final Result [facility] Department of Laboratories [place] [id number] * (ABNORMAL) Differential, auto (03/11/2025 12:36 PM CDT) Neutrophil abs 4.43 1.50 - 6.50 K/cumm Comment:Testing performed by : [facility], [address] [place] [address] Lymphocyte abs 0.77(L) 0.80 - 3.30 K/cumm [facility] Comment:Testing performed by : [facility], [address] [place], [place] [id number] Monocyte abs 0.66 0.20 - 0.80 K/cumm [facility] Comment:Testing performed by : [facility], [address] [place], [place] [phone] Eosinophil abs 0.18 0.00 - 0.50 K/cumm [facility] Comment:Testing performed by : [facility], [address] [place] [phone] Basophil abs 0.17(H) 0.00 - 0.10 K/cumm [facility] Comment:Testing performed by : [facility], [address] [place] [phone] Neutrophil pct 71.3 % [facility] Comment: Interpretive Data Percent cell count reference ranges are not reported, since discordance with absolute values may lead to misinterpretation of CBC data. Current Interpretive Data was last revised on 2017. Testing performed by: [facility], [address] [place] [phone] Lymphocyte pct 12.3 % [facility] Comment: Interpretive Data Percent cell count reference ranges are not reported, since discordance with absolute values may lead to misinterpretation of CBC data. Current Interpretive Data was last revised on 2017. Testing performed by: [facility], [address] [place] [phone] Monocyte pct 10.7 % [facility] Comment: Interpretive Data Percent cell count reference ranges are not reported, since discordance with absolute values may lead to misinterpretation of CBC data. Current Interpretive Data was last revised on 2017. Testing performed by: [facility], [address] [place] [phone] Eosinophil pct 2.9 % [facility] Comment: Interpretive Data Percent cell count reference ranges are not reported, since discordance with absolute values may lead to misinterpretation of CBC data. Current Interpretive Data was last revised on 2017. Testing performed by: [facility], [address] [place] [phone] Basophil pct 2.8 % [facility] CAR[facility]OS [facility] Comment: Interpretive Data Percent cell count reference ranges are not reported, since discordance with absolute values may lead to misinterpretation of CBC data. Current Interpretive Data was last revised on 2017. Testing performed by: [facility], [address] [place] [phone] Blood 03/11/2025 12:3 6 PM CDT 03/11/2025 12:45 PM CDT Clotilde Bai DNP LAB BLOOD ORDERABLE S Final Result [facility] Department [place] [address] * (ABNORMAL) CBC with auto differential (03/11/2025 12:36 PM CDT) WBC 6.21 3.80 - 9.90 K/cumm Comment:Testing performed by : [facility], [address] [place] [phone] Hgb 10.9(L) 11.9 - 15.5 g/dL [facility] CAR[facility] Comment:Testing performed by : [facility], [address] [place] [address] Hct 32.9(L) 35.6 - 45.5 % [facility] Comment:Testing performed by : [facility], [address] [place], [place] [phone] Plt 203 150 - 400 K/cumm [facility] Comment:Testing performed by : [facility], [address] [place], [place] [phone] MPV 8.2 6.8 - 10.4 fL [facility] Comment:Testing performed by : [facility], [address] [place], [place] [phone] RBC 3.70(L) 3.90 - 5.20 M/cumm [facility] Comment:Testing performed by : [facility], [address] [place], [place] [phone] MCV 88.9 81.3 - 96.4 fL [facility] Comment:Testing performed by : [facility], [address] [place] [address] MCH 29.5 27.1 - 33.3 pg [facility] Comment:Testing performed by : [facility], [address] [place] [address] MCHC 33.2 32.3 - 35.7 g/dL [facility] Comment:Testing performed by : [facility], [address] [place] [address] RDW CV 15.1(H) 11.1 - 14.9 % [facility] Comment:Testing performed by : [facility], [address] [place] [address] NRBC abs 0.00 0.00 - 0.01 K/cumm [facility] Comment:Testing performed by : [facility], [address] [place], [place] [phone] Blood 03/11/2025 12:3 6 PM CDT 03/11/2025 12:45 PM CDT Clotilde Bai [facility] LAB BLOOD ORDERABLE S Final Result [facility] Astr[facility] [place] [address] * Prealbumin (03/11/2025 12:36 PM CDT) Prealbumin 21.0 20.0 - 40.0 mg/dL Blood 03/11/2025 12:3 6 PM CDT 03/11/2025 1:32 PM CDT [facility] LAB BLOOD ORDERABLE S Final Result Performing Organization Address [facility] de Phone Number [facility] Department [place] [address] * (ABNORMAL) Comprehensive metabolic panel (03/11/2025 12:36 PM CDT) Pathologist [facility] Sodium 138 135 - 145 mmol/L Potassium, pl 3.6 3.3 - 4.9 mmol/L [facility] Chloride 98 97 - 110 mmol/L [facility] CO2 27 22 - 32 mmol/L [facility] Anion gap 13 2 - 15 mmol/L [facility] BUN 34(H) 6 - 25 mg/dL [facility] Creatinine 4.10(H) 0.60 - 1.10 mg/dL [facility] Glucose 96 70 - 199 mg/dL [facility] Comment: Interpretive Data Fasting glucose >/= 126 [...] 2022. Calcium 11.0(H) 8.5 - 10.3 mg/dL [facility] Bilirubin, total 0.2 0.1 - 1.2 mg/dL [facility] Protein, pl 6.9 6.5 - 8.5 g/dL [facility] Albumin 3.9 3.5 - 5.0 g/dL [facility] Alk phos 59 40 - 130 Units/L [facility] ALT 6(L) 7 - 45 Units/L [facility] AST 14 10 - 45 Units/L [facility] Blood 03/11/2025 12:3 6 PM CDT 03/11/2025 12:49 PM CDT Clotilde Bai DNP LAB BLOOD ORDERABLE S Final Result [facility] [place] [address] * [place] Fluoroscopy < 1 Hour (03/05/2025 12:02 PM CDT) Narrative [facility] - 03/05/2025 12:02 PM CDT The images from this study are not interpreted by Radiology. Please refer to the physician's procedure / OR operative note. us Dean Ambrose MD IMG FLUOROSCOPY PROCEDURE S Final Result Performing Organization Address City/[facility]/ZIP Co de Phone Number [facility] * (ABNORMAL) POC Blood Gas and Chemistries, Venous - (03/05/2025 11:10 AM CDT) pH, Will POC 7.44(H) 7.32 - 7.43 pCO2, will POC 42 40 - 50 mmHg [facility] pO2, will POC 55 mmHg [facility] Na, POC 137 135 - 145 mmol/L [facility] K POC 3.9 3.3 - 4.9 mmol/L [facility] Comment: Interpretive Data Not all point of care methods assess for hemolysis. Confirm with instrument and retest K+ if not consistent with clinical signs and symptoms. Current Interpretive Data was last revised on 2023. Cl, POC 102 97 - 110 mmol/L [facility] Ionized Ca, POC 5.09 4.50 - 5.10 mg/dL [facility] Glucose, POC 109 70 - 199 mg/dL [facility] Lactate POC 2.1(H) 0.7 - 2.0 mmol/L [facility] O2 Sat, Will POC (Mumtaz) 87 % [facility] Base excess, POC 3.9 mmol/L [facility] HCO3, Will POC 28 20 - 30 mmol/L [facility] Hct, POC 34.0(L) 36.3 - 45.3 % [facility] Total Hb, POC 11.4(L) 11.9 - 15.5 g/dL [facility] Blood 03/05/2025 11:1 0 AM CDT 03/05/2025 11:10 AM CDT Dean Ambrose MD LAB POCT ORDERABLES - DEV ICE Final Result [facility] Department [place] [address] * Hepatitis panel, acute (04/21/2022 11:19 AM CDT) Hep A IgM Nonreactive Nonreactive [facility] Comment: Interpretive Data: If Hep A IgM Ab is reported as Equivocal, a new sample should be drawn in two weeks for testing. Current interpretive data was last revised on 19. Testing performed by: [facility], [address] [place] [address]., [id number] Hep B core IgM Nonreactive Nonreactive [facility] Comment: Interpretive Data If HepB Core IgM Ab is reported as Equivocal, a new sample should be drawn in two weeks for testing. Current interpretive data was last revised on 19. Testing performed by: [facility], [address] [place] [address]., [id number] Hep C Ab Nonreactive Nonreactive LUIS CARLOS [facility] Comment: Interpretive Data Nonreactive: Antibodies to [...] last revised on 2019. Testing performed by: [facility], [address] [place] [address]., [id number] HepBsAg Nonreactive Nonreactive [facility] CAR[facility]OS [facility] Comment:Testing performed by : [facility], [address] [place] [address]., [id number] Blood 04/21/2022 11:1 9 AM CDT 04/21/2022 2:30 PM CDT Sybil Carballo MD LAB MICROBIOLOGY - G ENERAL ORDERABLES Final Result [facility] [id number] [facility]. Department [place] [address] * COLONOSCOPY (07/16/2018 12:21 PM MIXING ENGINEER) Anatomical Region Laterality Modality Other Narrative Procedure Note Robbie Srivastava MD - 07/16/2018 12:21 PM [facility] Patient Name: Mary Ramirez Procedure Date: 07/16/2018 12:21PM Date of : 1955 Admit Type: Inpatient Age: 63 Gender: Female Attending MD: Robbie Srivastava MD Room: [facility] 5 ROOM 229 Note Status: [...] The scope was passed under direct vision.The [id number] endoscope was introduced throughthe anus and advanced [...] On: 07/16/2018 12:21 PM Recognized by the [employer] for promoting quality in endoscopy us Robbie Srivastava MD ENDOSCOPY PROCEDURES Final Result * Diagnostic Mammogram Bilateral W Mikhail (06/22/2015 11:21 AM MIXING ENGINEER) Anatomical Region Laterality Modality Breast Bilateral Mammography 06/22/2015 11:2 1 AM MIXING ENGINEER Narrative 06/22/2015 11:36 AM MIXING ENGINEER MILE BARBA M.D. FINAL REPORT ACC# Date Time Exam [id number] Jun 22, 2015 11:21:00 [facility] [place] [address] Diag Mammogram Bilateral Technologist(s): Adriana Thibodeaux; ; [id number] Jun 22, 2015 11:21:00 [facility] [place] [address] Dig Breast Mikhail Juan EXAMINATION: BILATERAL FULL [...] BARBA M.D. on Jun 22 2015 11:36A [id number] Procedure Note Provider, MD Ubaldo - 11/29/2016 MILE BARBA M.D. FINAL REPORT ACC# Date Time Exam [id number] Jun 22, 2015 11:21:00 [facility] [place] [address] Diag Mammogram Bilateral Technologist(s): Adriana Thibodeaux; ; [id number] Jun 22, 2015 11:21:00 [facility] [place] [address] Dig Breast Mikhail Juan EXAMINATION: BILATERAL FULL FIELD DIGITAL DIAGNOSTIC MAMMOGRAM WITH CAD AND DIGITAL BREAST TOMOSYNTHESIS HISTORY: 60-year-old female presents for followup of a probably benign right breast mass. TECHNIQUE: Full field digital craniocaudal and mediolateral oblique views of both breasts were obtained. Computer Aided Detection was performed with [employer] 1.3 version 9.3. Digital breast tomosynthesis was [...] BARBA M.D. on Jun 22 2015 11:36A [id number] us Historical Provider MD MCKEE MAMMO PROCEDURES Naida l Result from Last 3 Months or Most Recently Relevant to Health Maintenance
--- OUTSIDE RECORDS SUMMARY | 2025-05-29 17:53 | XMS_ITS | Clinical Summary ---
Author Organization [facility] Address [address] [place] [address] Care Team Providers Care Rotor Winder Name Role Phone Yoanna Dove MD PhD Unavailable [phone] Jair Waterman MD Unavailable [phone] Unknown, Notinfile Primary Care Provider Unavail able Serina Pedroza MD Unavailable [phone] Allergies Active Allergy Reactions Criticality Noted Date [...] Pt felt weird Nitrofurantoin Diarrhea Low 01/26/2020 Lojqsep-Wxn-Uum Reductase Inhibitors Muscle pain Medium 07/19/2022 Multiple [...] Adenocarcinoma of left lung 05/27/2024 Overview (06/11/2024): [facility] #: [id number] Taken:05/06/2024 Received:05/06/2024 Reported: 05/08/2024 Patient Type: [facility] Ancillary Service: Pulmonary Location: Physician(s): Luiz [...] c/s Assessment & Plan (06/03/2024 2:13 PM RESEARCH BIOLOGIST): Follows with Dr. 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 - serotonin serum 367, chromogranin A - 399 - urine 5 HIAA pending - holding octreotide as no BM for over 24 hrs Generalized weakness 05/27/2024 Assessment & Plan (06/03/2024 2:16 PM RESEARCH BIOLOGIST): 2/2 dehydration and diarrhea discussed elsewhere PT - home with family/home with initial 24 hour supervision/home. Daughter will take home and supervise initially at home while patient regains strength Atrial fibrillation 05/27/2024 Assessment & Plan (06/03/2024 2:16 PM RESEARCH BIOLOGIST): S/p ablation. 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 Waterman. Suspicion for a neuroendocrine neoplasm (consensus at [facility]) based on episodes of diarrhea and index mesenteric mass, Dotatate avid and FDG negative. Not amenable to surgery or biopsy by HPB or IR. Assessment & Plan (11/26/2024 11:50 AM CDT): Follows elian/Dr. Waterman. Suspicion for a neuroendocrine neoplasm (consensus at [facility]) based on episodes of diarrhea and index mesenteric mass, Dotatate avid and FDG negative. Not amenable to surgery or biopsy by HPB or IR. - north onc c/s Assessment & Plan (11/25/2024 11:42 AM CDT): Follows elian/Dr. Waterman. Suspicion for a neuroendocrine neoplasm (consensus at [facility]) based on episodes of diarrhea and index mesenteric mass, Dotatate avid and FDG negative. Not amenable to surgery or biopsy by HPB or IR. - north onc c/s Assessment & Plan (11/24/2024 9:44 AM CDT): Follows elian/Dr. Waterman. Suspicion for a neuroendocrine neoplasm (consensus at [facility]) based on episodes of diarrhea and index mesenteric mass, Dotatate avid and FDG negative. Not amenable to surgery or biopsy by HPB or IR. - north onc c/s Assessment & Plan (11/23/2024 10:33 AM CDT): Follows w/Dr. Waterman. Suspicion for a neuroendocrine neoplasm (consensus at [facility]) based on episodes of diarrhea and index mesenteric mass, Dotatate avid and FDG negative. Not amenable to surgery or biopsy by HPB or IR. - north onc c/s Assessment & Plan (11/22/2024 5:54 PM CDT): Follows w/Dr. Waterman. Suspicion for a neuroendocrine neoplasm (consensus at [facility]) based on episodes of diarrhea and [...] (06/12/2022): Added automatically from request for surgery [id number] Assessment & Plan (01/13/2025 8:32 AM CDT): [...] BID Assessment & Plan (06/03/2024 2:11 PM RESEARCH BIOLOGIST): HD on Mondays and Fridays - nephrology following; s/p HD on 05/30, 06/02 - PTH 196 Assessment & Plan (06/13/2022 2:47 PM RESEARCH BIOLOGIST): Patient seen today for malfunctioning subclavian Perma [...] (11/15/2018): Added automatically from request for surgery [id number] Sciatica 07/11/2018 Assessment & Plan (07/11/2018 4:12 AM RESEARCH BIOLOGIST): With MRI spine earlier this year w/o evidence of central canal stenosis. Seen by orthopedic surgery for this and started on Celebrex. Peripheral neuropathy 07/11/2018 Assessment & Plan (05/28/2024 6:23 PM CDT): On gabapentin 300 nightly Assessment & Plan (07/11/2018 5:50 AM RESEARCH BIOLOGIST): Peripheral vascular neuropathy. Resume gabapentin. Check B12. [...] nightly Assessment & Plan (07/19/2018 12:07 PM RESEARCH BIOLOGIST): She has a long vascular history s/p aortobifemoral and fem-fem bypass with recurrent claudication s/p MANAGER IT TRAINING stent x 2 to R aortofem limb [...] BID. Assessment & Plan (07/18/2018 12:40 PM RESEARCH BIOLOGIST): She has a long vascular history s/p aortobifemoral and fem-fem bypass with recurrent claudication s/p MANAGER IT TRAINING stent x 2 to R aortofem limb [...] BID. Assessment & Plan (07/17/2018 2:30 PM RESEARCH BIOLOGIST): She has a long vascular history s/p aortobifemoral and fem-fem bypass with recurrent claudication s/p MANAGER IT TRAINING stent x 2 to R aortofem limb [...] BID. Assessment & Plan (07/16/2018 10:57 AM RESEARCH BIOLOGIST): She has a long vascular history s/p aortobifemoral and fem-fem bypass with recurrent claudication s/p MANAGER IT TRAINING stent x 2 to R aortofem limb [...] procedure Assessment & Plan (07/15/2018 2:08 PM RESEARCH BIOLOGIST): She has a long vascular history s/p aortobifemoral and fem-fem bypass with recurrent claudication s/p MANAGER IT TRAINING stent x 2 to R aortofem limb [...] procedure. Assessment & Plan (07/14/2018 12:52 PM RESEARCH BIOLOGIST): She has a long vascular history s/p aortobifemoral and fem-fem bypass with recurrent claudication s/p MANAGER IT TRAINING stent x 2 to R aortofem limb [...] drip Assessment & Plan (07/13/2018 5:26 PM RESEARCH BIOLOGIST): She has a long vascular history s/p aortobifemoral and fem-fem bypass with recurrent claudication s/p MANAGER IT TRAINING stent x 2 to R aortofem limb [...] drip Assessment & Plan (07/12/2018 6:40 PM RESEARCH BIOLOGIST): She has a long vascular history s/p aortobifemoral and fem-fem bypass with recurrent claudication s/p MANAGER IT TRAINING stent x 2 to R aortofem limb [...] drip Assessment & Plan (07/11/2018 5:37 AM RESEARCH BIOLOGIST): H/o aortobifemoral and fem-fem bypass with recurrent claudication s/p MANAGER IT TRAINING stent x 2 to R aortofem limb [...] 07/11/2018 Assessment & Plan (07/19/2018 12:08 PM RESEARCH BIOLOGIST): Patient with recurrent UTI over the past 3 years and recent admission in April for pyelo. Has history of chronic right ureteral obstruction and undergoes yearly stent exchanges with Dr. Carney here. -Urine culture with no growth, CTX discontinued Assessment & Plan (07/18/2018 12:43 PM RESEARCH BIOLOGIST): Patient with recurrent UTI over the past 3 years and recent admission in April for pyelo. Has history of chronic right ureteral obstruction and undergoes yearly stent exchanges with Dr. Carney here. -Urine culture with no growth, CTX discontinued Assessment & Plan (07/17/2018 2:31 PM RESEARCH BIOLOGIST): Patient with recurrent UTI over the past 3 years and recent admission in April for pyelo. Has history of chronic right ureteral obstruction and undergoes yearly stent exchanges with Dr. Carney here. -Urine culture with no growth, CTX discontinued Assessment & Plan (07/16/2018 11:01 AM RESEARCH BIOLOGIST): Patient with recurrent UTI over the past 3 years and recent admission in April for pyelo. Has history of chronic right ureteral obstruction and undergoes yearly stent exchanges with Dr. Carney here. -Urine culture with no growth, CTX discontinued Assessment & Plan (07/15/2018 2:09 PM RESEARCH BIOLOGIST): Patient with recurrent UTI over the past 3 years and recent admission in April for pyelo. Has history of chronic right ureteral obstruction and undergoes yearly stent exchanges with Dr. Carney here. -Urine culture with no growth, CTX discontinued Assessment & Plan (07/12/2018 6:40 PM RESEARCH BIOLOGIST): Patient with recurrent UTI over the past 3 years and recent admission in April for pyelo. Has history of chronic right ureteral obstruction and undergoes yearly stent exchanges with Dr. Carney here. -Urine culture with no growth, CTX discontinued Assessment & Plan (07/11/2018 5:45 AM RESEARCH BIOLOGIST): Patient with recurrent UTI over the past [...] 07/11/2018 Assessment & Plan (07/19/2018 12:08 PM RESEARCH BIOLOGIST): She presented with anemia down to 6.8 [...] daily Assessment & Plan (07/18/2018 12:41 PM RESEARCH BIOLOGIST): She presented with anemia down to 6.8 [...] pill. Assessment & Plan (07/17/2018 2:33 PM RESEARCH BIOLOGIST): She presented with anemia down to 6.8 [...] PPI Assessment & Plan (07/16/2018 10:58 AM RESEARCH BIOLOGIST): She presented with anemia down to 6.8 [...] problems. Assessment & Plan (07/15/2018 2:09 PM RESEARCH BIOLOGIST): She presented with anemia down to 6.8 [...] evening. Assessment & Plan (07/14/2018 12:51 PM RESEARCH BIOLOGIST): She presented with anemia down to 6.8 [...] night Assessment & Plan (07/13/2018 5:22 PM RESEARCH BIOLOGIST): She presented with anemia down to 6.8 [...] then Assessment & Plan (07/12/2018 6:38 PM RESEARCH BIOLOGIST): She presented with anemia down to 6.8 [...] then Assessment & Plan (07/11/2018 5:49 AM RESEARCH BIOLOGIST): Normocytic anemia of 6.8 in setting of [...] 07/11/2018 Assessment & Plan (07/19/2018 12:08 PM RESEARCH BIOLOGIST): Symptomatically improved after transfusion. Likely 2/2 stress of anemia. - Discontinue telemetry Assessment & Plan (07/18/2018 12:43 PM RESEARCH BIOLOGIST): Symptomatically improved after transfusion. Likely 2/2 stress of anemia. - Discontinue telemetry Assessment & Plan (07/17/2018 2:30 PM RESEARCH BIOLOGIST): Symptomatically improved after transfusion. Likely 2/2 stress of anemia Assessment & Plan (07/16/2018 11:00 AM RESEARCH BIOLOGIST): Symptomatically improved after transfusion. Likely 2/2 stress of anemia Assessment & Plan (07/15/2018 2:11 PM RESEARCH BIOLOGIST): Symptomatically improved after transfusion. She is having runs of NSVT on telemetry for which she might benefit from a beta-ubaldo. Assessment & Plan (07/14/2018 12:52 PM RESEARCH BIOLOGIST): Symptomatically improved after transfusion. She is having runs of NSVT on telemetry for which she might benefit from a beta-ubaldo. Assessment & Plan (07/13/2018 5:25 PM RESEARCH BIOLOGIST): Symptomatically improved after transfusion. She is having runs of NSVT on telemetry for which she might benefit from a beta-ubaldo. Assessment & Plan (07/11/2018 5:51 AM RESEARCH BIOLOGIST): H/o PVCs s/p RF ablation; not on BB. Reports ongoing palpitations w/o associated CP. EKG as above. -monitor on tele -correct anemia -trend troponins as above, check TSH Severe malnutrition 07/11/2018 Assessment & Plan (05/28/2024 6:22 PM CDT): RD consulted. Supplements ordered Gastrointestinal hemorrhage 07/10/2018 Overview (07/15/2018): Added automatically from request for surgery [id number] Hyperlipidemia 11/10/2016 Abnormal results of pulmonary function [...] CABG Assessment & Plan (07/19/2018 12:08 PM RESEARCH BIOLOGIST): CAD s/p CABG, currently without chest pain. Serial troponins were negative. -Continue Zetia - ASA restarted - Discontinue plavix on elquis Assessment & Plan (07/18/2018 12:43 PM RESEARCH BIOLOGIST): CAD s/p CABG, currently without chest pain. Serial troponins were negative. -Continue Zetia - ASA restarted - Discontinue plavix on elquis Assessment & Plan (07/17/2018 2:31 PM RESEARCH BIOLOGIST): CAD s/p CABG, currently without chest pain. Serial troponins were negative. -Continue Zetia - ASA restarted - Discontinue plavix as no more cardiac indication for it - Planning to start eliquis instead Assessment & Plan (07/16/2018 11:00 AM RESEARCH BIOLOGIST): CAD s/p CABG, currently without chest pain. Serial troponins were negative. -Continue Zetia -Heparin drip as noted elsewhere in place of ASA/Plavix Assessment & Plan (07/15/2018 2:08 PM RESEARCH BIOLOGIST): CAD s/p CABG, currently without chest pain. Serial troponins were negative. -Continue Zetia -Heparin drip as noted elsewhere in place of ASA/Plavix Assessment & Plan (07/14/2018 12:51 PM RESEARCH BIOLOGIST): CAD s/p CABG, currently without chest pain. Serial troponins were negative. -Continue Zetia -Heparin drip as noted elsewhere in place of ASA/Plavix Assessment & Plan (07/13/2018 5:22 PM RESEARCH BIOLOGIST): CAD s/p CABG, currently without chest pain. -Continue Zetia -Heparin drip as noted elsewhere in place of ASA/Plavix -Serial troponins were negative Assessment & Plan (07/12/2018 6:38 PM RESEARCH BIOLOGIST): CAD s/p CABG, currently without chest pain. Holding ASA/Plavix as noted elsewhere. -Continue Zetia -Serial troponins were negative Assessment & Plan (07/11/2018 5:42 AM RESEARCH BIOLOGIST): CAD s/p CABG; currenlty w/o chest pain [...] ileus Assessment & Plan (06/03/2024 2:11 PM RESEARCH BIOLOGIST): Prior to admission, the patient was on [...] discharge Assessment & Plan (06/13/2022 2:39 PM RESEARCH BIOLOGIST): Chronic stable hypertension be controlled with medications. Continue monitoring blood pressures and taking medications as per PCP. Assessment & Plan (07/19/2018 12:08 PM RESEARCH BIOLOGIST): She has a fairly wide pulse pressure so despite high systolic pressures, her actual MAP is not particularly high. She is now starting to be hypertensive - restarting lisinopril Assessment & Plan (07/18/2018 12:42 PM RESEARCH BIOLOGIST): She has a fairly wide pulse pressure so despite high systolic pressures, her actual MAP is not particularly high. She is not currently tachycardic or hypertensive - Continue holding lisinopril Assessment & Plan (07/17/2018 2:30 PM RESEARCH BIOLOGIST): She has a fairly wide pulse pressure so despite high systolic pressures, her actual MAP is not particularly high. She may benefit from a beta-ubaldo for her NSVT, but pulse might be too low. NVST has also resolved - Continue lisinopril though might remove if pressures become too low Assessment & Plan (07/16/2018 11:00 AM RESEARCH BIOLOGIST): She has a fairly wide pulse pressure so despite high systolic pressures, her actual MAP is not particularly high. She may benefit from a beta-ubaldo for her NSVT, but pulse might be too low. NVST has also resolved -Restarting lisinopril this AM. Assessment & Plan (07/15/2018 2:11 PM RESEARCH BIOLOGIST): She has a fairly wide pulse pressure [...] MAX-inhibitor Assessment & Plan (07/14/2018 12:52 PM RESEARCH BIOLOGIST): She has a fairly wide pulse pressure [...] MAX-inhibitor Assessment & Plan (07/13/2018 5:26 PM RESEARCH BIOLOGIST): She has a fairly wide pulse pressure so despite high systolic pressures, her actual MAP is not particularly high. She may benefit from a beta-ubaldo for her NSVT. -Holding lisinopril in setting of recent contrast load -Will discuss beta-ubaldo versus ACEi Assessment & Plan (07/12/2018 6:39 PM RESEARCH BIOLOGIST): She has a fairly wide pulse pressure. -Holding lisinopril in setting of recent contrast load, restart if creatinine is stable Assessment & Plan (07/11/2018 5:50 AM RESEARCH BIOLOGIST): Hold home lisinopril given low hemoglobin although will likely be able to start in AM. Atherosclerosis of [place] teries of extremities with intermittent claudication, unspecified extremity 12/12/1995 Overview (11/29/2018): Added automatically from request for surgery Resolved Problems Problem Noted Date Diagnosed Date Resolved Date Goals of care, counseling/discussion 05/27/2024 12/30/2024 Adenocarcinoma of upper lobe of left lung 03/18/2024 05/27/2024 Hx of CABG 07/19/2022 05/27/2024 Encounters Date Type Department Care Team Description 05/28/2025 Telephone [facility] Floor [address] [place] [address] Jair Waterman MD 05/27/2025 Telephone [facility] [address] [place] [address] Jair Waterman MD 05/27/2025 Orders Only [facility] Floor [address] [place] [address] Jair Waterman MD Neuroendocrine carcinoma of small bowel (HCC); Diarrhea, unspecified type 05/26/2025 [facility] [address] [facility] [address] [place] [address] Jair Waterman MD 05/26/2025 [facility] [address] [facility] [address] [place] [address] Jair Waterman MD 05/20/2025 8:45 AM CDT Office Visit [facility] [address] [facility] Floor [address] [place] [address] Natalie Esquivel MD 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) 05/20/2025 Documentation [facility] Nutrition Counseling [address] [place] [address] Adali Dill, CHRISTIANNE 04/21/2025 Telephone [facility] Medicine Cardiology [facility] 8th [place] [address] [place] [address] Ana Thomason 04/14/2025 [facility] [address] [facility] Floor [address] [place] [address] Jair Waterman MD 04/14/2025 Orders Only [facility] Medicine Oncology [address] [facility] Floor [address] [place] [address] Jair Waterman MD 03/24/2025 Documentation [facility] Nutrition Counseling [address] [place] [address] 03/17/2025 Documentation [facility] Nutrition Counseling [address] [place] [address] 03/13/2025 Telephone [facility] Nutrition Counseling [address] [place] [address] 03/11/2025 1:15 PM CDT Lab [facility] - Lab Collection [address] [facility] Floor [address] [place] [address] Neuroendocrine carcinoma of small bowel (HCC) 03/11/2025 11:15 AM CDT Office Visit [facility] Medicine Surgery [address] [facility] Floor [address] [place] [address] Natalie Esquivel MD 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); Atrial fibrillation, unspecified type (HCC) 03/11/2025 Orders Only [facility] Surgery [address] [facility] [address] [place] [phone] Natalie Esquivel MD 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) 03/05/2025 12:15 PM CDT - 03/05/2025 2:15 PM CDT Surgery [facility] Operating Room [address] [place] [address] Dean Ambrose MD EXCHANGE STENT RIGHT 03/05/2025 11:26 AM CDT Anesthesia Event [facility] Operating Room [address] [place] [phone] John Gage MD Heimann, Liza Marie Ortillo, NP 03/05/2025 10:21 AM CDT - 03/05/2025 1:08 PM CDT Hospital Encounter [facility] Operating Room [address] [place] [phone] Dean Ambrose MD Encounter for preoperative assessment (Primary Dx) Discharge Disposition: Discharge to home or self care 03/05/2025 Telephone [facility] Surgery [address] [facility] [address] [place] [address] Daen Ambrose MD 02/26/2025 Telephone [facility] Medicine Urology [address] [facility] [address] [place] [address] Moraima Connor from Last 3 [...] patient 11/2020 HD Mondays & Fridays at [facility] Dialysis patient Sunday and ay [...] = 0.6 oz pur e alcohol) [facility] Utilities Answer Date Recorded In the past 12 months has [place], gas, oil, or water [employer] threatened to shut off services in your [...] answer 01/13/2025 How often do you attend [facility] or oriental orthodox services? Patient unable to answer 01/13/2025 Do you belong to any clubs o r organizations such as mandaen groups, unions, fraternal or athletic groups, or [...] time in the past 12 m [facility], were you homeless or living in a residential (including now)? Patient unable to answer 01/13/2025 [...] on file Legal Sex Female 3:32 PM RESEARCH BIOLOGIST Gender Identity Not on file Sexual Orientation [...] Completed 01/12/2025 Medical Devices Implanted Type Area Vice Chairman Device Identifier Shelf Expiration Date Model / Serial / Lot [employer] Kory Stent Ureteral Double Pigtail Tria [id number] Ptfe [id number] - [id number] Implanted:Qty: 1 on 03/05/2025 by Dean Ambrose MD at [facility] Stent Right: Ureter [employer] Kory [id number] 10/14/2027 [id number] / / [id number] [employer] [id number] Supple Selene-Guard [place] Processing 4x4cm Patch Cardiovascular - [id number] Implanted:Qty: 1 on 12/06/2018 by Yoanna Dove MD PhD at [facility] Right: Iliac Butcher [employer] Kory 04/09/2023 [id number] / / [id number] [employer] Wilson Mac-Loc 10.2fr 26cm Low Profile Radiopaque Sideport Distal [id number] - [id number] Implanted:Qty: 1 on 04/20/2022 at [facility] [employer] 07/14/2024 [id number] / / [id number] Mahanoy [employer] Kory 8fr 24cm Durometer Drainage Hole Catheter Flexible Stiffen 24-551 - [id number] Implanted:Qty: 1 on 06/08/2022 at [facility] [employer] 09/18/2024 24-551 / / [id number] Angio [employer] Duraflow Embosafe 15.5fr 28cm Basic 2 Lumen Kit Catheter [id number] - [id number] Implanted:Qty: 1 on 06/13/2022 by Uche Cole MD at [facility] [employer] [id number] / / Explanted Type Area Vice Chairman Device Identifier Shelf Expiration Date Model / Serial / Lot [employer] Universa 7fr 24cm Radiopaque Positioner Monofilament Tether Firm [id number] - [id number] Implanted:Qty: 1 on 10/05/2022 by Dean Ambrose MD at [facility] Explanted:Qty: 1 on 05/10/2023 at [facility] Other - see comments [employer] 04/26/2025 [id number] / / [id number] Stent-10/04/2017 Implanted:10/04 (Quantity not on file) Explanted:Qty: 1 on 12/12/2018 by Nadir Holman MD at [facility] Stent Right: Ureter Description:Bard 6 x 24 sten t removed intact [employer] [id number] Universa 7fr 24cm 145cm Soft Lithographic Press Feeder Braid Tether Guidewire - Sn/A - [id number] Implanted:Qty: 1 on 12/12/2018 by Nadir Holman MD at [facility] Explanted:Qty: 1 on 10/06/2021 by Dean Ambrose MD at [facility] Stent Right: Ureter [employer] 06/25/2021 [id number] / N/A / [id number] [employer] [id number] Universa 7fr 24cm Radiopaque Positioner Monofilament Tether Firm - Sna - [id number] Implanted:Qty: 1 on 10/21/2020 by Dean Ambrose MD at [facility] Explanted:Qty: 1 on 05/10/2023 by Dean Ambrose MD at [facility] Stent Right: Ureter [employer] [id number] 08/04/2023 [id number] / NA / [id number] [employer] [id number] Universa 7fr 24cm Radiopaque Positioner Monofilament Tether Firm - Sna - [id number] Implanted:Qty: 1 on 10/06/2021 by Dean Ambrose MD at [facility] Explanted:Qty: 1 on 03/05/2025 by Dean Ambrose MD at [facility] Stent Right: Ureter [employer] 12/22/2023 [id number] / NA / [id number] [employer] Universa 7fr 24cm Radiopaque Positioner Monofilament Tether Firm [id number] - Sna - [id number] Implanted:Qty: 1 on 06/19/2024 by Mike Sal MD at [facility] Explanted:Qty: 1 on 03/05/2025 by Dean Ambrose MD at [facility] Stent Right: Ureter [employer] [id number] 06/09/2025 [id number] / NA / [id number] [employer] [id number] Inlay [place] 7fr 24cm Pusher Fluoro Marker Atraumatic Insertion Latex Free - [id number] Implanted:Qty: 1 on 02/05/2020 by Dean Ambrose MD at [facility] Explanted:Qty: 1 on 10/21/2020 at [facility] Right: Ureter [employer] 01/08/2023 [id number] / / [id number] [employer] Universa 7fr 24cm Radiopaque Positioner [employer] [id number] - [id number] Implanted:Qty: 1 on 05/10/2023 by Dean Ambrose MD at [facility] Explanted:Qty: 1 on 06/19/2024 by Mike Sal MD at [facility] Right: Ureter [employer] 09/26/2025 [id number] / / [id number] [employer] Universa 7fr 24cm Radiopaque Positioner Monofilament [employer]ether [employer] [id number] - [id number] Implanted:Qty: 1 on 11/22/2023 at [facility] Explanted:Qty: 1 on 03/05/2025 by Dean Ambrose MD at [facility] Right: [employer]reter [employer] 02/14/2026 [id number] / / [id number] Procedures Procedure Name Priority Date/Time Associated Diagnosis [...] 11:19 AM CDT COLONOSCOPY 07/16/2018 12:21 PM RESEARCH BIOLOGIST DIAGNOSTIC MAMMOGRAM BILATERAL W MIKHAIL Routine 06/22/2015 11:21 AM RESEARCH BIOLOGIST from Last 3 Months or Most Recently [...] BLOOD ORDERABLE S Final Result LUIS CARLOS [facility] Department of Laboratories [place], [place] [id number] * (ABNORMAL) Differential, auto (03/11/2025 12:36 PM CDT) Pathologist [facility] Neutrophil abs 4.43 1.50 - 6.50 K/cumm Comment:Testing performed by : [facility], [address] [place] [address] Lymphocyte abs 0.77(L) 0.80 - 3.30 K/cumm CERNER BJ Comment:Testing performed by : [facility], [address] [place], [place] [id number] Monocyte abs 0.66 0.20 - 0.80 K/cumm [facility] Comment:Testing performed by : [facility], [address] [place], [place] [id number] Eosinophil abs 0.18 0.00 - 0.50 K/cumm [facility] Comment:Testing performed by : [facility], [address] [place], [place] [id number] Basophil abs 0.17(H) 0.00 - 0.10 K/cumm [facility] Comment:Testing performed by : [facility], [address] [place], [place] [phone] Neutrophil pct 71.3 % [facility] Comment: Interpretive Data Percent cell count reference ranges are not reported, since discordance with absolute values may lead to misinterpretation of CBC data. Current Interpretive Data was last revised on 2017. Testing performed by: [facility], [address] [place] [phone] Lymphocyte pct 12.3 % [facility] Comment: Interpretive Data Percent cell count reference ranges are not reported, since discordance with absolute values may lead to misinterpretation of CBC data. Current Interpretive Data was last revised on 2017. Testing performed by: [facility], [address] [place] [phone] Monocyte pct 10.7 % [facility] Comment: Interpretive Data Percent cell count reference ranges are not reported, since discordance with absolute values may lead to misinterpretation of CBC data. Current Interpretive Data was last revised on 2017. Testing performed by: [facility], [address] [place], [place] [phone] Eosinophil pct 2.9 % CERNER [facility] Comment: Interpretive Data Percent cell count reference ranges are not reported, since discordance with absolute values may lead to misinterpretation of CBC data. Current Interpretive Data was last revised on 2017. Testing performed by: [facility], [address] [place] [phone] Basophil pct 2.8 % LUIS CARLOS [facility] Comment: Interpretive Data Percent cell count reference ranges are not reported, since discordance with absolute values may lead to misinterpretation of CBC data. Current Interpretive Data was last revised on 2017. Testing performed by: [facility], [address] [place] [phone] Blood 03/11/2025 12:3 6 PM CDT 03/11/2025 12:45 PM CDT Clotilde Bai DNP LAB BLOOD ORDERABLE S Final Result [facility] Department [place] [address] * (ABNORMAL) CBC with auto differential (03/11/2025 12:36 PM CDT) WBC 6.21 3.80 - 9.90 K/cumm Comment:Testing performed by : [facility], [address] [place] [address] Hgb 10.9(L) 11.9 - 15.5 g/dL LUIS CARLOS GAVIN Comment:Testing performed by : [facility], [address] [place] [address] Hct 32.9(L) 35.6 - 45.5 % LUIS CARLOS [facility]AV[facility] Comment:Testing performed by : [facility], [address] [place] [address] Plt 203 150 - 400 K/cumm LUIS CARLOS GAVIN Comment:Testing performed by : [facility], [address] [place] [address] MPV 8.2 6.8 - 10.4 fL LUIS CARLOS GAVIN Comment:Testing performed by : [facility], [address] [place], [place] [phone] RBC 3.70(L) 3.90 - 5.20 M/cumm LUIS CARLOS GAVIN Comment:Testing performed by : [facility], [address] [place], [place] [phone] MCV 88.9 81.3 - 96.4 fL LUIS CARLOS GAVIN Comment:Testing performed by : [facility], [address] [place], [place] [phone] MCH 29.5 27.1 - 33.3 pg LUIS CARLOS GAVIN Comment:Testing performed by : [facility], [address] [place], [place] [phone] MCHC 33.2 32.3 - 35.7 g/dL LUIS CARLOS GAVIN Comment:Testing performed by : [facility], [address] [place], [place] [phone] RDW CV 15.1(H) 11.1 - 14.9 % LUIS CARLOS [facility] Comment:Testing performed by : [facility], [address] [place], [place] [phone] NRBC abs 0.00 0.00 - 0.01 K/cumm LUIS CARLOS [facility] Comment:Testing performed by : [facility], [address] [place], [place] [phone] Blood 03/11/2025 12:3 6 PM CDT 03/11/2025 12:45 PM CDT Clotilde Bai DNP LAB BLOOD ORDERABLE S Final Result LUIS CARLOS [facility] Department [place] [address] * Prealbumin (03/11/2025 12:36 PM CDT) Prealbumin 21.0 20.0 - 40.0 mg/dL Blood 03/11/2025 12:3 6 PM CDT 03/11/2025 1:32 PM CDT Clotilde Bai DNP LAB BLOOD ORDERABLE S Final Result [facility] Department [place] [address] * (ABNORMAL) Comprehensive metabolic panel (03/11/2025 12:36 PM CDT) Sodium 138 135 - 145 mmol/L Potassium, pl 3.6 3.3 - 4.9 mmol/L CERNER [facility] Chloride 98 97 - 110 mmol/L [facility] CO2 27 22 - 32 mmol/L CERNER [facility] Anion gap 13 2 - 15 mmol/L [facility] BUN 34(H) 6 - 25 mg/dL [facility] Creatinine 4.10(H) 0.60 - 1.10 mg/dL [facility] Glucose 96 70 - 199 mg/dL [facility] Comment: Interpretive Data Fasting glucose [...] 2022. Calcium 11.0(H) 8.5 - 10.3 mg/dL [facility] Bilirubin, total 0.2 0.1 - 1.2 mg/dL [facility] Protein, pl 6.9 6.5 - 8.5 g/dL [facility] Albumin 3.9 3.5 - 5.0 g/dL [facility] Alk phos 59 40 - 130 Units/L [facility] ALT 6(L) 7 - 45 Units/L [facility] AST 14 10 - 45 Units/L [facility] Blood 03/11/2025 12:3 6 PM CDT 03/11/2025 12:49 PM CDT Clotilde Bai DNP LAB BLOOD ORDERABLE S Final Result LUIS CARLOS [facility] Department [place] [address] * FL Fluoroscopy < 1 Hour (03/05/2025 12:02 PM CDT) Narrative RAD_PACS_[facility] - 03/05/2025 12:02 PM CDT The images from this study are not interpreted by Radiology. Please refer to the physician's procedure / OR operative note. us Dean Ambrose MD IMG FLUOROSCOPY PROCEDURE S Final Result Performing Organization Address City/[facility]/ZIP Co de Phone Number [facility] * (ABNORMAL) POC Blood Gas and Chemistries, Venous - (03/05/2025 11:10 AM CDT) pH, Will POC 7.44(H) 7.32 - 7.43 pCO2, will POC 42 40 - 50 mmHg [facility] pO2, will POC 55 mmHg CERNER [facility] Na, POC 137 135 - 145 mmol/L [facility] K POC 3.9 3.3 - 4.9 mmol/L [facility] Comment: Interpretive Data Not all point of care methods assess for hemolysis. Confirm with instrument and retest K+ if not consistent with clinical signs and symptoms. Current Interpretive Data was last revised on 2023. Cl, POC 102 97 - 110 mmol/L CERNER [facility] Ionized Ca, POC 5.09 4.50 - 5.10 mg/dL CERNER [facility] Glucose, POC 109 70 - 199 mg/dL CERNER [facility] Lactate POC 2.1(H) 0.7 - 2.0 mmol/L CERNER [facility] O2 Sat, Will POC (Mumtaz) 87 % [facility] Base excess, POC 3.9 mmol/L [facility] HCO3, Will POC 28 20 - 30 mmol/L [facility] Hct, POC 34.0(L) 36.3 - 45.3 % [facility] Total Hb, POC 11.4(L) 11.9 - 15.5 g/dL [facility] Blood 03/05/2025 11:1 0 AM CDT 03/05/2025 11:10 AM CDT Dean Ambrose MD LAB POCT ORDERABLES - DEV ICE Final Result [facility] Department [place] [address] * Hepatitis panel, acute (04/21/2022 11:19 AM CDT) Hep A IgM Nonreactive Nonreactive [facility] Comment: Interpretive Data: If Hep A IgM Ab is reported as Equivocal, a new sample should be drawn in two weeks for testing. Current interpretive data was last revised on 19. Testing performed by: [facility], [address] [place] [address]., [id number] Hep B core IgM Nonreactive Nonreactive [facility] Comment: Interpretive Data If HepB Core IgM Ab is reported as Equivocal, a new sample should be drawn in two weeks for testing. Current interpretive data was last revised on 19. Testing performed by: [facility], [address] [place] [address]., [address] Hep C Ab Nonreactive Nonreactive LUIS CARLOS [facility] Comment: Interpretive Data Nonreactive: Antibodies to [...] last revised on 2019. Testing performed by: [facility], [address] [place] [address]., [address] HepBsAg Nonreactive Nonreactive LUIS CARLOS [facility] Comment:Testing performed by : [facility], [facility], [place]., [address] Blood 04/21/2022 11:1 9 AM CDT 04/21/2022 2:30 PM CDT Sybil Carballo MD LAB MICROBIOLOGY - G ENERAL ORDERABLES Final Result [facility] [address] [facility]. Department [place] [address] * COLONOSCOPY (07/16/2018 12:21 PM RESEARCH BIOLOGIST) Anatomical Region Laterality Modality Other Narrative Procedure Note Robbie Srivastava MD - 07/16/2018 12:21 PM [facility] Patient Name: Mary Jameson Procedure Date: 07/16/2018 12:21PM Date of : 1955 Admit Type: Inpatient Age: 63 Gender: Female Attending MD: Robbie Srivastava MD Room: [facility] OR POD 5 ROOM 229 Note [...] The scope was passed under direct vision.The [id number] endoscope was introduced throughthe anus and [...] On: 07/16/2018 12:21 PM Recognized by the [employer] for promoting quality in endoscopy us Robbie Srivastava MD ENDOSCOPY PROCEDURES Final Result * Diagnostic Mammogram Bilateral W Mikhail (06/22/2015 11:21 AM RESEARCH BIOLOGIST) Anatomical Region Laterality Modality Breast Bilateral Mammography 06/22/2015 11:2 1 AM RESEARCH BIOLOGIST Narrative 06/22/2015 11:36 AM RESEARCH BIOLOGIST MILE BARBA M.D. FINAL REPORT ACC# Date Time Exam [id number] Jun 22, 2015 11:21:00 [facility] [id number] Diag Mammogram Bilateral Technologist(s): Adriana Thibodeaux; ; [id number] Jun 22, 2015 11:21:00 [facility] [id number] Dig Breast Mikhail Juan EXAMINATION: BILATERAL FULL FIELD DIGITAL DIAGNOSTIC MAMMOGRAM WITH CAD AND DIGITAL BREAST TOMOSYNTHESIS HISTORY: 60-year-old female presents for followup of a probably benign right breast mass. TECHNIQUE: Full field digital craniocaudal and mediolateral oblique views of both breasts were obtained. Computer Aided Detection was performed with HauteDay 1.3 version 9.3. Digital breast tomosynthesis was [...] BARBA M.D. on Jun 22 2015 11:36A [id number] Procedure Note Provider, MD Ubaldo - 11/29/2016 MILE BARBA M.D. FINAL REPORT ACC# Date Time Exam [id number] Jun 22, 2015 11:21:00 [facility] [id number] Diag Mammogram Bilateral Technologist(s): Adriana Thibodeaux; ; [id number] Jun 22, 2015 11:21:00 [facility] [id number] Dig Breast Mikhail Juan EXAMINATION: BILATERAL FULL FIELD DIGITAL DIAGNOSTIC MAMMOGRAM WITH CAD AND DIGITAL BREAST TOMOSYNTHESIS HISTORY: 60-year-old female presents for followup of a probably benign right breast mass. TECHNIQUE: Full field digital craniocaudal and mediolateral oblique views of both breasts were obtained. Computer Aided Detection was performed with Relayr.3 version 9.3. Digital breast tomosynthesis was performed [...] BARBA M.D. on Jun 22 2015 11:36A [id number] Historical Provider MD MCKEE MAMMO PROCEDURES Naida l Result from Last 3 Months or Most Recently Relevant to Health Maintenance Insurance MEDICARE [facility] MEDICARE [facility] MEDIC[facility] Advance Directives For more information, please contact: [phone] Documents on File Type Date Recorded Patient Deckhand Tuna Boat Expl anation ADVANCE DIRECTIVE 12/06/2018 6:02 AM [...] 8:39 AM 06/09/2022 4:54 AM Care Teams Rotor Winder Relationship Specialty Start Date End Date Unknown, Notinfile PCP - General 06/12/24 Yoanna Dove MD PhD Surgeon Vascular Surgery 12/09/18 Jair Waterman MD [address] [place] [address] Consulting Physician Medical Oncology 05/29/24 Serina Pedroza MD [address] [facility] [address] [place] [address] Radiation Oncologist Radiation Oncology 07/14/24
--- OUTSIDE RECORDS SUMMARY | 2025-05-29 17:53 | XMS_ITS | Encounter Summary ---
Author Organization [facility] Address [address] [place] [address] Phone Care Team Providers Care Emergency Room Technician Name Role Phone Yoanna Dove MD PhD Unavailable [phone] Jair Waterman MD Unavailable Unknown, Notinfile Primary Care Provider Unavail able Serina Pedroza MD Unavailable [phone] Encounter Details Date Type Department Care Team (Late st Contact Info) Description 05/26/2025 Telephone [facility] Medicine Oncology [address] [facility] Floor 5 [place] [address] Jair Waterman MD [address] [facility] [address] [place] [address] Social History Tobacco Use Types Packs/Day Years Used Date Smoking Tobacco: Former Cigarettes 2 28 1 970 - 1997 Smokeless Tobacco: Never Alcohol Use Standard Drinks/Week Comments Never 0 (1 standard drink = 0.6 oz pur e alcohol) [facility] Utilities Answer Date Recorded In the past [...] often do you attend chur ch or protestant services? Patient unable to answer 01/13/2025 Do you belong to any clubs o r organizations such as quaker groups, unions, fraternal or athletic groups, or [...] any time in the past 12 m [facility], were you homeless or living in a fdc (including now)? 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
--- OUTSIDE RECORDS SUMMARY | 2025-05-29 17:53 | XMS_ITS | Encounter Summary ---
Author Organization [facility] Healthcare Address [address] [place] [address] Care Team Providers Care Dialer Name Role Phone Radha Murphy MD Primary Care Provider + Yoanna Dove MD PhD Unavailable [phone] Jair Waterman MD Unavailable [phone] Unknown, Notinfile Primary Care Provider Unavail able Serina Pedroza MD Unavailable [phone] Encounter Details Date Type Department Care Team (Late st Contact Info) Description 06/23/2020 Telephone [facility] Radiology 1 [place], [place] [id number] Yoanna Dove MD PhD [address] [place] [address] Social History Tobacco Use Types Packs/Day Years [...] on file 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 Gender Identity Not on file Sexual Orientation [...] documented as of this encounter Care Teams Dialer Relationship Specialty Start Date End Date Radha Murphy MD [address] [place] [address] PCP - General Family Medicine 11/13/18 06/11/24 Unknown, Notinfile PCP - General 06/12/24 Yoanna Dove MD PhD [address] [place] [address] Surgeon Vascular Surgery 12/09/18 Jair Waterman MD [address] [place] [address] Consulting Physician Medical Oncology 05/29/24 Serina Pedroza MD [address] [facility] [address] [place] [address] Radiation Oncologist Radiation Oncology 07/14/24 documented as of this encounter
--- OUTSIDE RECORDS SUMMARY | 2025-05-29 17:53 | XMS_ITS | Clinical Summary ---
Author Organization [facility] Care Team Providers Care Powder Cutting Operator Name Role Phone Unavailable Primary Care Provider [...]
--- OUTSIDE RECORDS SUMMARY | 2025-05-29 17:53 | XMS_ITS | Clinical Summary ---
Author Organization [facility] Address [address] [facility] [place] [address] Care Team Providers Care Suspect Artist Name Role Phone Radha Murphy MD Primary Care Provider [phone] Radha Murphy MD Unavailable [phone] Source Comments [facility],non-owned Affiliates and Associated Physician Practices is amultiple site organization consisting of ambulatory clinics and hospital sitesin [place], [place], [place] and [place]. This disclosure is being madepursuant to the Care Everywhere program and may not contain all information available regarding this patient. 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
--- OUTSIDE RECORDS SUMMARY | 2025-05-29 17:53 | XMS_ITS | Encounter Summary ---
Author Organization [facility] Address [address] [place] [address] Phone Care Team Providers Care Polysomnographic Tech Name Role Phone Yoanna Dove MD PhD Unavailable [phone] Jair Waterman MD Unavailable Unknown, Notinfile Primary Care Provider Unavail able Serina Pedroza MD Unavailable [phone] Encounter Details Date Type Department Care Team (Late st Contact Info) Description 05/27/2025 Orders Only Health system Medicine Oncology [address] [facility] Floor 5 [place] [address] Jair Waterman MD [address] [facility] [address] [place] [address] Neuroendocrine carcinoma of small bowel (HCC); Diarrhea, unspecified type Social History Tobacco Use Types Packs/Day Years Used Date Smoking Tobacco: Former Cigarettes 2 28 1 970 - 1997 Smokeless Tobacco: Never Alcohol Use Standard Drinks/Week Comments Never 0 (1 standard drink = 0.6 oz pur e alcohol) [facility] Utilities Answer Date Recorded In the past 12 months has [employer], gas, oil, or water company threatened to [...] often do you attend chur ch or confucianist services? Patient unable to answer 01/13/2025 Do [...] were you homeless or living in a retirement (including now)? 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 [address] [place] [address] Radiation Oncologist Radiation Oncology 07/14/24 documented as of this encounter
--- OUTSIDE RECORDS SUMMARY | 2025-05-29 17:53 | XMS_ITS | Encounter Summary ---
Author Organization [facility] Address [address] [place] [address] Phone Care Team Providers Care Communications Engineer Name Role Phone Yoanna Dove MD PhD Unavailable [phone] Jair Waterman MD Unavailable Unknown, Notinfile Primary Care Provider Unavail able Serina Pedroza MD Unavailable [phone] Encounter Details Date Type Department Care Team (Late st Contact Info) Description 05/26/2025 Orders Only [facility] Medicine Oncology [address] [facility] Floor 5 [place] [address] Jair Waterman MD [address] [facility] [address] [place] [address] Social History Tobacco Use Types Packs/Day Years Used Date Smoking Tobacco: Former Cigarettes 2 28 1 970 - 1997 Smokeless Tobacco: Never Alcohol Use Standard Drinks/Week Comments Never 0 (1 standard drink = 0.6 oz pur e alcohol) [facility] Utilities Answer Date Recorded In the [...] How often do you attend chur or christianity services? Patient unable to answer 01/13/2025 Do [...] any time in the past 12 m [facility], were you homeless or living in a custodial (including now)? 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 Gender Identity Not on file Sexual Orientation Not on file Occupation Industry Job Start Date Job End Date disability Not on file Not on file Not on file documented as of this encounter Plan of Treatment Not on file documented as of this encounter Visit Diagnoses Not on filedocumented in this encounter Care Teams Communications Engineer Relationship Specialty Start Date End Date Unknown, Notinfile PCP - General 06/12/24 Yoanna Dove MD PhD Surgeon Vascular Surgery 12/09/18 Jair Waterman MD [address] [place] [address] Consulting Physician Medical Oncology 05/29/24 Serina Pedroza MD [address] [facility] [address] [place] [address] Radiation Oncologist Radiation Oncology 07/14/24 documented as of this encounter
--- OUTSIDE RECORDS SUMMARY | 2025-05-29 17:53 | XMS_ITS ---
Author Organization [facility] al Address [address] [place] [address] Care Team Providers Care Podiatry Professor Name Role Phone Yoanna Dove MD PhD Unavailable [phone] Jair Waterman MD Unavailable Unknown, Notinfile Primary Care Provider Unavail able Serina Pedroza MD Unavailable [phone] Active Problems Problem Noted Date Diagnosed Date [...] Adenocarcinoma of left lung 05/27/2024 Overview (06/11/2024): [facility] #: [id number] Taken:05/06/2024 Received:05/06/2024 Reported: 05/08/2024 Patient Type: [facility] Ancillary Service: Pulmonary Location: Physician(s): Luiz [...] c/s Assessment & Plan (06/03/2024 2:13 PM FRONT END DEVELOPER DESIGNER): Follows with Dr. 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 - serotonin serum 367, chromogranin A - 399 - urine 5 HIAA pending - holding octreotide as no BM for over 24 hrs Generalized weakness 05/27/2024 Assessment & Plan (06/03/2024 2:16 PM FRONT END DEVELOPER DESIGNER): 2/2 dehydration and diarrhea discussed elsewhere PT - home with family/home with initial 24 hour supervision/home. Daughter will take home and supervise initially at home while patient regains strength Atrial fibrillation 05/27/2024 Assessment & Plan (06/03/2024 2:16 PM FRONT END DEVELOPER DESIGNER): S/p ablation. 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 Waterman. Suspicion for a neuroendocrine neoplasm (consensus at [facility]) based on episodes of diarrhea and index mesenteric mass, Dotatate avid and FDG negative. Not amenable to surgery or biopsy by [facility]B or IR. Assessment & Plan (11/26/2024 11:50 AM CDT): Follows Roque Waterman. Suspicion for a neuroendocrine neoplasm (consensus at [facility]) based on episodes of diarrhea and index mesenteric mass, Dotatate avid and FDG negative. Not amenable to surgery or biopsy by HPB or IR. - north onc c/s Assessment & Plan (11/25/2024 11:42 AM CDT): Follows Roque Waterman. Suspicion for a neuroendocrine neoplasm (consensus at [facility]) based on episodes of diarrhea and index mesenteric mass, Dotatate avid and FDG negative. Not amenable to surgery or biopsy by [facility] or IR. - north onc c/s Assessment & Plan (11/24/2024 9:44 AM CDT): Follows Roque Waterman. Suspicion for a neuroendocrine neoplasm (consensus at [facility]) based on episodes of diarrhea and [...] (06/12/2022): Added automatically from request for surgery [id number] Assessment & Plan (01/13/2025 8:32 AM CDT): [...] BID Assessment & Plan (06/03/2024 2:11 PM FRONT END DEVELOPER DESIGNER): HD on Mondays and Fridays - nephrology following; s/p HD on 05/30, 06/02 - PTH 196 Assessment & Plan (06/13/2022 2:47 PM FRONT END DEVELOPER DESIGNER): Patient seen today for malfunctioning subclavian Perma [...] (11/15/2018): Added automatically from request for surgery [id number] Sciatica 07/11/2018 Assessment & Plan (07/11/2018 4:12 AM FRONT END DEVELOPER DESIGNER): With MRI spine earlier this year w/o evidence of central canal stenosis. Seen by orthopedic surgery for this and started on Celebrex. Peripheral neuropathy 07/11/2018 Assessment & Plan (05/28/2024 6:23 PM CDT): On gabapentin 300 nightly Assessment & Plan (07/11/2018 5:50 AM FRONT END DEVELOPER DESIGNER): Peripheral vascular neuropathy. Resume gabapentin. Check B12. [...] nightly Assessment & Plan (07/19/2018 12:07 PM FRONT END DEVELOPER DESIGNER): She has a long vascular history s/p aortobifemoral and fem-fem bypass with recurrent claudication s/p CUSTOMER EXPERIENCE ASSOCIATE stent x 2 to R aortofem limb [...] BID. Assessment & Plan (07/18/2018 12:40 PM FRONT END DEVELOPER DESIGNER): She has a long vascular history s/p aortobifemoral and fem-fem bypass with recurrent claudication s/p CUSTOMER EXPERIENCE ASSOCIATE stent x 2 to R aortofem limb [...] BID. Assessment & Plan (07/17/2018 2:30 PM FRONT END DEVELOPER DESIGNER): She has a long vascular history s/p aortobifemoral and fem-fem bypass with recurrent claudication s/p CUSTOMER EXPERIENCE ASSOCIATE stent x 2 to R aortofem limb [...] BID. Assessment & Plan (07/16/2018 10:57 AM FRONT END DEVELOPER DESIGNER): She has a long vascular history s/p aortobifemoral and fem-fem bypass with recurrent claudication s/p CUSTOMER EXPERIENCE ASSOCIATE stent x 2 to R aortofem limb [...] procedure Assessment & Plan (07/15/2018 2:08 PM FRONT END DEVELOPER DESIGNER): She has a long vascular history s/p aortobifemoral and fem-fem bypass with recurrent claudication s/p CUSTOMER EXPERIENCE ASSOCIATE stent x 2 to R aortofem limb [...] procedure. Assessment & Plan (07/14/2018 12:52 PM FRONT END DEVELOPER DESIGNER): She has a long vascular history s/p aortobifemoral and fem-fem bypass with recurrent claudication s/p CUSTOMER EXPERIENCE ASSOCIATE stent x 2 to R aortofem limb [...] drip Assessment & Plan (07/13/2018 5:26 PM FRONT END DEVELOPER DESIGNER): She has a long vascular history s/p aortobifemoral and fem-fem bypass with recurrent claudication s/p CUSTOMER EXPERIENCE ASSOCIATE stent x 2 to R aortofem limb [...] drip Assessment & Plan (07/12/2018 6:40 PM FRONT END DEVELOPER DESIGNER): She has a long vascular history s/p aortobifemoral and fem-fem bypass with recurrent claudication s/p CUSTOMER EXPERIENCE ASSOCIATE stent x 2 to R aortofem limb [...] drip Assessment & Plan (07/11/2018 5:37 AM FRONT END DEVELOPER DESIGNER): H/o aortobifemoral and fem-fem bypass with recurrent claudication s/p CUSTOMER EXPERIENCE ASSOCIATE stent x 2 to R aortofem limb [...] 07/11/2018 Assessment & Plan (07/19/2018 12:08 PM FRONT END DEVELOPER DESIGNER): Patient with recurrent UTI over the past 3 years and recent admission in April for pyelo. Has history of chronic right ureteral obstruction and undergoes yearly stent exchanges with Dr. Carney here. -Urine culture with no growth, CTX discontinued Assessment & Plan (07/18/2018 12:43 PM FRONT END DEVELOPER DESIGNER): Patient with recurrent UTI over the past 3 years and recent admission in April for pyelo. Has history of chronic right ureteral obstruction and undergoes yearly stent exchanges with Dr. Carney here. -Urine culture with no growth, CTX discontinued Assessment & Plan (07/17/2018 2:31 PM FRONT END DEVELOPER DESIGNER): Patient with recurrent UTI over the past 3 years and recent admission in April for pyelo. Has history of chronic right ureteral obstruction and undergoes yearly stent exchanges with Dr. Carney here. -Urine culture with no growth, CTX discontinued Assessment & Plan (07/16/2018 11:01 AM FRONT END DEVELOPER DESIGNER): Patient with recurrent UTI over the past 3 years and recent admission in April for pyelo. Has history of chronic right ureteral obstruction and undergoes yearly stent exchanges with Dr. Carney here. -Urine culture with no growth, CTX discontinued Assessment & Plan (07/15/2018 2:09 PM FRONT END DEVELOPER DESIGNER): Patient with recurrent UTI over the past 3 years and recent admission in April for pyelo. Has history of chronic right ureteral obstruction and undergoes yearly stent exchanges with Dr. Carney here. -Urine culture with no growth, CTX discontinued Assessment & Plan (07/12/2018 6:40 PM FRONT END DEVELOPER DESIGNER): Patient with recurrent UTI over the past 3 years and recent admission in April for pyelo. Has history of chronic right ureteral obstruction and undergoes yearly stent exchanges with Dr. Carney here. -Urine culture with no growth, CTX discontinued Assessment & Plan (07/11/2018 5:45 AM FRONT END DEVELOPER DESIGNER): Patient with recurrent UTI over the past [...] 07/11/2018 Assessment & Plan (07/19/2018 12:08 PM FRONT END DEVELOPER DESIGNER): She presented with anemia down to 6.8 [...] daily Assessment & Plan (07/18/2018 12:41 PM FRONT END DEVELOPER DESIGNER): She presented with anemia down to 6.8 [...] pill. Assessment & Plan (07/17/2018 2:33 PM FRONT END DEVELOPER DESIGNER): She presented with anemia down to 6.8 [...] PPI Assessment & Plan (07/16/2018 10:58 AM FRONT END DEVELOPER DESIGNER): She presented with anemia down to 6.8 [...] problems. Assessment & Plan (07/15/2018 2:09 PM FRONT END DEVELOPER DESIGNER): She presented with anemia down to 6.8 [...] evening. Assessment & Plan (07/14/2018 12:51 PM FRONT END DEVELOPER DESIGNER): She presented with anemia down to 6.8 [...] night Assessment & Plan (07/13/2018 5:22 PM FRONT END DEVELOPER DESIGNER): She presented with anemia down to 6.8 [...] then Assessment & Plan (07/12/2018 6:38 PM FRONT END DEVELOPER DESIGNER): She presented with anemia down to 6.8 [...] then Assessment & Plan (07/11/2018 5:49 AM FRONT END DEVELOPER DESIGNER): Normocytic anemia of 6.8 in setting of [...] 07/11/2018 Assessment & Plan (07/19/2018 12:08 PM FRONT END DEVELOPER DESIGNER): Symptomatically improved after transfusion. Likely 2/2 stress of anemia. - Discontinue telemetry Assessment & Plan (07/18/2018 12:43 PM FRONT END DEVELOPER DESIGNER): Symptomatically improved after transfusion. Likely 2/2 stress of anemia. - Discontinue telemetry Assessment & Plan (07/17/2018 2:30 PM FRONT END DEVELOPER DESIGNER): Symptomatically improved after transfusion. Likely 2/2 stress of anemia Assessment & Plan (07/16/2018 11:00 AM FRONT END DEVELOPER DESIGNER): Symptomatically improved after transfusion. Likely 2/2 stress of anemia Assessment & Plan (07/15/2018 2:11 PM FRONT END DEVELOPER DESIGNER): Symptomatically improved after transfusion. She is having runs of NSVT on telemetry for which she might benefit from a beta-ubaldo. Assessment & Plan (07/14/2018 12:52 PM FRONT END DEVELOPER DESIGNER): Symptomatically improved after transfusion. She is having runs of NSVT on telemetry for which she might benefit from a beta-ubaldo. Assessment & Plan (07/13/2018 5:25 PM FRONT END DEVELOPER DESIGNER): Symptomatically improved after transfusion. She is having runs of NSVT on telemetry for which she might benefit from a beta-ubaldo. Assessment & Plan (07/11/2018 5:51 AM FRONT END DEVELOPER DESIGNER): H/o PVCs s/p RF ablation; not on BB. Reports ongoing palpitations w/o associated CP. EKG as above. -monitor on tele -correct anemia -trend troponins as above, check TSH Severe malnutrition 07/11/2018 Assessment & Plan (05/28/2024 6:22 PM CDT): RD consulted. Supplements ordered Gastrointestinal hemorrhage 07/10/2018 Overview (07/15/2018): Added automatically from request for surgery [id number] Hyperlipidemia 11/10/2016 Abnormal results of pulmonary function [...] CABG Assessment & Plan (07/19/2018 12:08 PM FRONT END DEVELOPER DESIGNER): CAD s/p CABG, currently without chest pain. Serial troponins were negative. -Continue Zetia - ASA restarted - Discontinue plavix on elquis Assessment & Plan (07/18/2018 12:43 PM FRONT END DEVELOPER DESIGNER): CAD s/p CABG, currently without chest pain. Serial troponins were negative. -Continue Zetia - ASA restarted - Discontinue plavix on elquis Assessment & Plan (07/17/2018 2:31 PM FRONT END DEVELOPER DESIGNER): CAD s/p CABG, currently without chest pain. Serial troponins were negative. -Continue Zetia - ASA restarted - Discontinue plavix as no more cardiac indication for it - Planning to start eliquis instead Assessment & Plan (07/16/2018 11:00 AM FRONT END DEVELOPER DESIGNER): CAD s/p CABG, currently without chest pain. Serial troponins were negative. -Continue Zetia -Heparin drip as noted elsewhere in place of ASA/Plavix Assessment & Plan (07/15/2018 2:08 PM FRONT END DEVELOPER DESIGNER): CAD s/p CABG, currently without chest pain. Serial troponins were negative. -Continue Zetia -Heparin drip as noted elsewhere in place of ASA/Plavix Assessment & Plan (07/14/2018 12:51 PM FRONT END DEVELOPER DESIGNER): CAD s/p CABG, currently without chest pain. Serial troponins were negative. -Continue Zetia -Heparin drip as noted elsewhere in place of ASA/Plavix Assessment & Plan (07/13/2018 5:22 PM FRONT END DEVELOPER DESIGNER): CAD s/p CABG, currently without chest pain. -Continue Zetia -Heparin drip as noted elsewhere in place of ASA/Plavix -Serial troponins were negative Assessment & Plan (07/12/2018 6:38 PM FRONT END DEVELOPER DESIGNER): CAD s/p CABG, currently without chest pain. Holding ASA/Plavix as noted elsewhere. -Continue Zetia -Serial troponins were negative Assessment & Plan (07/11/2018 5:42 AM FRONT END DEVELOPER DESIGNER): CAD s/p CABG; currenlty w/o chest pain [...] ileus Assessment & Plan (06/03/2024 2:11 PM FRONT END DEVELOPER DESIGNER): Prior to admission, the patient was on [...] discharge Assessment & Plan (06/13/2022 2:39 PM FRONT END DEVELOPER DESIGNER): Chronic stable hypertension be controlled with medications. Continue monitoring blood pressures and taking medications as per PCP. Assessment & Plan (07/19/2018 12:08 PM FRONT END DEVELOPER DESIGNER): She has a fairly wide pulse pressure so despite high systolic pressures, her actual MAP is not particularly high. She is now starting to be hypertensive - restarting lisinopril Assessment & Plan (07/18/2018 12:42 PM FRONT END DEVELOPER DESIGNER): She has a fairly wide pulse pressure so despite high systolic pressures, her actual MAP is not particularly high. She is not currently tachycardic or hypertensive - Continue holding lisinopril Assessment & Plan (07/17/2018 2:30 PM FRONT END DEVELOPER DESIGNER): She has a fairly wide pulse pressure so despite high systolic pressures, her actual MAP is not particularly high. She may benefit from a beta-ubaldo for her NSVT, but pulse might be too low. NVST has also resolved - Continue lisinopril though might remove if pressures become too low Assessment & Plan (07/16/2018 11:00 AM FRONT END DEVELOPER DESIGNER): She has a fairly wide pulse pressure so despite high systolic pressures, her actual MAP is not particularly high. She may benefit from a beta-ubaldo for her NSVT, but pulse might be too low. DCST has also resolved -Restarting lisinopril this AM. Assessment & Plan (07/15/2018 2:11 PM FRONT END DEVELOPER DESIGNER): She has a fairly wide pulse pressure [...] MAX-inhibitor Assessment & Plan (07/14/2018 12:52 PM FRONT END DEVELOPER DESIGNER): She has a fairly wide pulse pressure [...] MAX-inhibitor Assessment & Plan (07/13/2018 5:26 PM FRONT END DEVELOPER DESIGNER): She has a fairly wide pulse pressure so despite high systolic pressures, her actual MAP is not particularly high. She may benefit from a beta-ubaldo for her NSVT. -Holding lisinopril in setting of recent contrast load -Will discuss beta-ubaldo versus ACEi Assessment & Plan (07/12/2018 6:39 PM FRONT END DEVELOPER DESIGNER): She has a fairly wide pulse pressure. -Holding lisinopril in setting of recent contrast load, restart if creatinine is stable Assessment & Plan (07/11/2018 5:50 AM FRONT END DEVELOPER DESIGNER): Hold home lisinopril given low hemoglobin although will likely be able to start in AM. Atherosclerosis of [place] of extremities with intermittent claudication, [...] 24 07/13/2024 octreotide (SandoSTATIN LAR) Provider Discretion Jiar Waterman MD 1 of 5 cycles completed [...]
[2025-05-29] MEDS: SODIUM CHLORIDE 0.9% IV 500 ML 999 ML IV CONT (18:34)
[2025-05-29] MEDS: ONDANSETRON INJ 4 MG/2 ML VIAL IV PUSH (18:37)
[2025-05-29 18:45] LABS: Magnesium 2.4 mg/dL (1.6-2.3)
[2025-05-29 19:25] LABS: Influenza A QL RT-PCR Negative (Negative); Influenza B QL RT-PCR Negative (Negative); RSV RNA, RT-PCR Negative (Negative); SARS-CoV-2 RNA PCR Negative (Negative)
[2025-05-29 20:09] LABS: Add Urine Microscopic? YES; Appearance Urine Cloudy (Clear); Glucose Urine UA Negative (Negative); Leukocyte Esterase Ur 3+ LEU/UL (Negative); Need Manual Microscopic Reviewed; Nitrate Urine Negative (Negative); Specific Grav Ur 1.010 (1.001-1.035)
[2025-05-29] MEDS: cefTRIAXone 1 GM in SODIUM CHLORIDE 0.9% IV 50 ML 100 ML IVPB (21:37)
[2025-05-29] MEDS: clonazePAM (*CRX) 0.5 MG TABLET PO (22:16)
[2025-05-29] MEDS: AZITHROMYCIN IV 500 MG in SODIUM CHLORIDE 0.9% IV 250 ML IVPB (22:16)
[2025-05-29] MEDS: BENZOCAINE/TETRACAINE SPRAY (*SP) 56 ML AEROSOL 1 SPRAY MUCOUS MEM (22:22)
[2025-05-30] VITALS (15 sets, daily range): BP systolic 166–189; BP diastolic 49–69; PULSE 52–70; RESP 14–18; TEMP 36.3–36.6; O2SAT 96–99
--- NOTE | 2025-05-30 01:10 | ADMGEN ---
This patient, Mary Ramirez, was admitted to IMU Room 211-01 at 2300. Patient/family oriented to hospital policies and general routines including ID bracelet, bed and alarms, visiting hours, pain management, procedures, bathroom and other care routines, personal items, smoking policy, room service/diet, and visiting hours. Information on how to activate the Rapid Response Team has been discussed. Patient/Family are encouraged to report perceived risks to care and to ask questions if they do not understand what they are told or what they should do.
--- NOTE | 2025-05-30 06:22 | PM.IMHP ---
H&P: HPI History of Present Illness Date/Time: 05/30/25 06:22 Chief Complaint: Weakness Narrative: This is a 70-year-old female patient to has a history of endocrine he answer in her intestine. The patient presented via EMS with complaints of weakness. She has been feeling ill over the last 3 days. She does have end-stage renal disease and has dialysis on Mondays and Fridays. The patient did not go to dialysis on Sunday. She at has been having some nausea vomiting was having difficulty keeping any oral substance in her system. The patient had been constipated for 3-4 days. The patie her magnesium was high at 2.4. Nt has a history of having multiple abdominal surgery he has and has had a small bowel obstruction in the past. She denies any cough for fever chills. She denies any urinary symptoms. Abnormal labs sodium 123, BUN 42, creatinine 3.8, and GF are 12. Abdominal CT was read as a followingRight double-J ureteral stent is noted. There is mild right hydronephrosis. The left kidneys atrophy. There is fluid filled distended small bowel loops with multiple air-fluid levels may represent partial to early small bowel obstruction.chest x ray read as bilateral pneumonia. Urine results 3+ leukocyte esterase, urine RBC 3-5, urine wbc's 51-100. The patient has been started on a Zithromax and Rocephin. The NG tube was placed in the emergency room. Nephrology as well as surgery have been consulted from the emergency room. The patient is being admitted at as observation status on the date of service of 05/30/2025. Review of Systems Constitutional: Constitutional: Reports as per HPI and Reports no additional constitutional complaints Eyes: Eyes: Reports as per HPI and Reports no additional eye complaints ENT: Reports system reviewed and no additional complaints, except as documented and Reports Normal hearing present Cardiovascular: Cardiovascular: Reports no additional cardiovascular complaints Respiratory: Respiratory: Reports as per HPI and Reports no additional respiratory complaints Gastrointestinal: Gastrointestinal: Reports as per HPI and Reports no additional gastrointestinal complaints Genitourinary: Genitourinary: Reports no additional female genitourinary complaints Musculoskeletal: Musculoskeletal: Reports no additional musculoskeletal complaints Integumentary/Breasts: Skin/Breast: Reports system reviewed and no additional complaints, except as docu Neurologic: Reports system reviewed and no additional complaints, except as documented and Reports Normal hearing present Psychiatric: Psychiatric: Reports no additional psychiatric complaints and Reports as per HPI Hematologic/Lymphatic: Hematologic/Lymphatic: Reports no additional hematologic/lymphatic complaints Allergic/Immunologic: Allergic/Immunologic: Reports no additional allergic/immunologic complaints [facility] Past Medical History Medical History Lung nodule The patient stated that she took radiation for lung cancer and it is now resolved. Anxiety History of small bowel obstruction Carotid stenosis Most recent carotid Doppler July 2022: Less than 50% stenosis right internal carotid artery and greater than 70% stenosis of the left internal carotid artery. Hypothyroidism History of GI bleed Multiple and requiring transfusion. No longer on chronic anticoagulation due to bleeds Atrial fibrillation Kidney stones Peripheral artery disease Moderate to severe bilateral lower extremity peripheral vascular disease noted on ABIs July 2022 End-stage renal disease on hemodialysis Essential hypertension Coronary artery disease Surgical History Surgical History History of bowel resection History of laparoscopic cholecystectomy (2000) History of vascular surgery History of cardiac radiofrequency ablation Retained ureteral stent Chronic S/P dialysis catheter insertion Right upper chest was placed and removed, currently in left upper chest History of ventral hernia repair With mesh Stenosis of right femoral artery Status post stent approximately 1994 History of abdominal aortic aneurysm repair (1997) Open repair History of four vessel coronary artery bypass graft (1997) Family History Family History Sibling Acute myocardial infarction Hx of CABG Sibling , As a child Third degree burn injury Sibling Opiate abuse, continuous Mother Age older than 80 years Father , Age greater than 80 Acute myocardial infarction, Onset Age: 45 Sibling Acute myocardial infarction Heart disease Social History Social History Social History: She is . Surrogate medical decision maker: Beverley Ann, daughter Code status: Full code Smoking packs per day: 2 Smoking cigarettes per day: 40.0 Years smoked: 28 Smoking pack-years: 56.00 Smoking status: Former smoker Tobacco type: cigarettes Smoking end date: 07/30/97 Alcohol intake: never Substance use: never Substance use type: does not use Do You Feel Safe in your Home?: Yes Lack of Transportation: No Lack of Food: Never True Current Housing: I Have Housing Concerned About Future Housing: No Difficulty Paying Gas/Electric Bills: No Difficulty Paying for Meds: No Currently Unemployed: No Education: High School Diploma/GED Difficulty w/ Childcare or Family Care: No Additional living arrangements comments: She is and lives alone. She has 1 of her 3 daughters living nearby. 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 Spiritual care concerns: No Meds Home Medications and Allergies Home Medications ?Medication ?Instructions ?Recorded ?Confirmed ?Type aspirin 325 mg tablet 325 mg PO HS 11/26/22 05/29/25 History clonazepam 1 mg tablet 0.5 mg PO BID PRN Anxiety 11/26/22 05/29/25 History furosemide 40 mg tablet 40 mg PO BID 11/26/22 05/29/25 History gabapentin 300 mg capsule 300 mg PO HS 11/26/22 05/29/25 History Colace 100 mg PO DAILY PRN Constipation 04/10/24 05/29/25 History Miralax 17 g PO DAILY PRN Constipation 04/10/24 05/29/25 History Vitamin D3 1,000 units PO DAILY 04/10/24 05/29/25 History losartan 25 mg tablet 50 mg (2 x 25 mg) PO DAILY #30 tabs 04/14/24 05/29/25 Rx hydralazine 25 mg tablet 75 mg PO TID 05/29/25 05/29/25 History nifedipine 30 mg tablet,extended 60 mg PO HS 05/29/25 05/29/25 History release 24 hr (Procardia XL) octreotide acetate 100 mcg/mL (1 100 mcg subcut Q24H PRN diarrhea 05/29/25 05/29/25 History mL) injection syringe ondansetron 8 mg disintegrating 8 mg translingual Q8H PRN nausea 05/29/25 05/29/25 History tablet and vomiting pantoprazole 40 mg tablet,delayed 40 mg PO DAILY 05/29/25 05/29/25 History release Allergies Allergy/AdvReac Type Severity Reaction Status Date / Time iohexol (From contrast - CT, Allergy Mild Rash Verified 05/29/25 18:31 X-RAY) ciprofloxacin (From Cipro) AdvReac Unknown Other Verified 05/29/25 23:44 fentanyl AdvReac Other Verified 05/29/25 18:31 Vital Signs Vital Signs - 24 hr 05/29/25 16:09 05/29/25 16:47 05/29/25 16:47 Temperature 97.5 F L Pulse Rate 67 59 L 60 Respiratory Rate 18 15 14 Blood Pressure 144/55 H 180/63 H 180/63 H Pulse Oximetry 98 99 97 Oxygen Delivery Room Air Room Air 05/29/25 17:32 05/29/25 18:15 05/29/25 18:15 Temperature Pulse Rate 60 53 L 53 L Respiratory Rate 22 H 23 H Blood Pressure 155/82 H 190/54 H Pulse Oximetry 100 99 Oxygen Delivery 05/29/25 20:01 05/29/25 23:00 05/29/25 23:07 Temperature 97.5 F L Pulse Rate 57 L 56 L 60 Respiratory Rate 19 20 18 Blood Pressure 205/86 H 192/56 H 189/59 H Pulse Oximetry 99 100 98 Oxygen Delivery 05/29/25 23:30 05/30/25 00:00 05/30/25 00:00 Temperature Pulse Rate 51 L 55 L Respiratory Rate Blood Pressure Pulse Oximetry Oxygen Delivery Room Air 05/30/25 02:00 05/30/25 04:00 05/30/25 04:00 Temperature Pulse Rate 53 L 52 L Respiratory Rate Blood Pressure Pulse Oximetry Oxygen Delivery Room Air 05/30/25 04:00 05/30/25 06:00 Temperature 97.7 F Pulse Rate 54 L 54 L Respiratory Rate 18 Blood Pressure 184/49 H Pulse Oximetry 97 Oxygen Delivery Exam Const: General: cooperative, healthy appearing, no acute distress, well developed, awake, Physically active and average body habitus Orientation/consciousness: oriented to person, oriented to place, oriented to time and patient oriented x3 Limitations: no limitations HENMT: Head: normal to inspection and No palpable skull fracture present Ears: hearing grossly normal bilaterally Other: NG tube intact her right nares Eyes: General: appearance normal, both eyes and all related structures Alignment and Position: alignment normal Periorbital: periorbital findings normal Eyelids: eyelids normal Conjunctivae: conjunctivae normal Sclera: sclerae normal Cornea: corneas normal Pupils: Equal, round and reactive pupils present and Pupil accommodation reflex normal EOM: EOMs intact bilaterally Neck: Neck: normal visual inspection, full ROM, no lymphadenopathy, trachea midline and supple Thyroid: thyroid normal Chest: Chest palpation & inspection: normal inspection of the chest Other: Dialysis catheter intact to right upper chest Resp: Effort & Inspection: normal respiratory effort Auscultation: clear to auscultation bilaterally Cardio: Palpation: normal PMI Rate: bradycardic Rhythm: regular rhythm Heart sounds: S1 normal heart sound present and S2 normal heart sound present Peripheral pulses: Peripheral pulses 2+ throughout GI: Inspection: normal to inspection Auscultation: High-pitched bowel sounds present Rectal Exam: deferred : General: Yes no CVA tenderness Back/Spine/Pelvis: Back: no CVA tenderness Cervical Spine: cervical ROM normal Thoracic/Lumbar Spine: thoracic and lumbar spine normal to inspection Pelvis: no pain with anterior-posterior compression Skin: General skin exam: normal color Lesions: no lesions Rashes: no rashes Trauma: no lacerations or abrasions Wounds: no wounds Hair: normal Nails: normal Neuro: General: oriented to person, oriented to place, oriented to time and patient oriented x3 Cranial nerves: Yes Equal, round and reactive pupils present and Yes Normal hearing present Cognition (Neuro): normal cognition Speech: normal speech Gait exam (Neuro): Normal gait present Motor exam (neuro): 5/5 motor strength present throughout Sensory Exam: normal sensation Extrem: General: normal to inspection Right upper extremity: normal to inspection and shoulder/upper arm Left upper extremity: normal to inspection and shoulder/upper arm Right lower extremity: normal to inspection Left lower extremity: normal to inspection Psych: Appearance: grossly normal Mental Status: mental status grossly normal Speech and movement: Normal speech and movement present Affect: normal affect Attitude: cooperative Thought process: Normal thought process present Thought content: Yes Normal thought content present Insight: Good insight present (Psych) Judgement: Good judgement present (Psych) H&P: Results Labs Labs: Short CBC 05/29/25 Range/Units 16:57 WBC 6.1 (4.5-10.0) K/mm3 Hgb 12.9 (12.0-15.0) g/dL Hct 41.1 (37.0-47.0) % Plt Count 224 (150-375) k/mm3 BMP 05/29/25 16:57 Sodium 132 L Potassium 3.9 Chloride 91 L Carbon Dioxide 29 BUN 42 H Creatinine 3.80 H Glucose 85 Calcium 10.2 Liver Function 05/29/25 Range/Units 16:57 Total Bilirubin 0.8 (0.2-1.3) mg/dL AST 31 (14-36) U/L ALT 11 (6-35) U/L Alkaline Phosphatase 68 (38-126) U/L Albumin 3.7 (3.5-5.1) g/dL Urine 05/29/25 Range/Units 19:51 Urine Color Yellow (Yellow) Urine Appearance Cloudy H (Clear) Urine pH 6.0 (5.0-9.0) Ur Specific [place] 1.010 (1.001-1.035) Urine Protein 1+ H (Negative) mg/dL Urine Glucose (UA) Negative (Negative) mg/dL ECG Interpretation: Test Date: 2025-05-29 16:52:20 Measurements Intervals [place] Rate: 53 P: 76 MO: 153 QRS: 77 QRSD: 101 T: 91 QT: 451 QTc: 426 Interpretive Statements SINUS BRADYCARDIA LEFT ATRIAL ENLARGEMENT INCOMPLETE RIGHT BUNDLE BRANCH BLOCK BORDERLINE ST-T WAVE ABNORMALITY- DIFFUSE LEADS BASELINE ARTIFACT- I, III, AVR, AVL, AVF BORDERLINE ECG No previous ECG available for comparison Electronically Signed On 05-29-2025 20:06:36 CDT by Kyle Carballo D.O. Imaging Chest x-ray: Radiologist's impression: Impressions Chest X-Ray 05/29/25 17:26 Impression: Bilateral pneumonia Abdomen/Pelvis CT 05/29/25 19:10 IMPRESSION: Right double-J ureteral stent is noted. There is mild right hydronephrosis. The left kidneys atrophy. There is fluid filled distended small bowel loops with multiple air-fluid levels may represent partial to early small bowel obstruction. All CT scans at this facility are performed using low dose modulation techniques as appropriate to perform exam including the following: automated exposure control; use of iterative reconstruction technique; adjustment of the mA and/or kV according to patient size (this includes techniques or standardized protocols for targeted exams where dose is matched to indication/reason for exam). Abdomen X-Ray 05/29/25 22:46 IMPRESSION: Enteric tube is in appropriate position. Assessment and Plan Assessment and plan (1) Small bowel obstruction: Code(s): K56.609 - Unspecified intestinal obstruction, unspecified as to partial versus complete obstruction Status: Acute Assessment and Plan: -the patient has had multiple surgeries. She has also has small bowel obstruction in the past. 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 -surgery has been consulted. -NG tube has been placed in Chloraseptic for throat discomfort. -no IV fluids were continued at this time as she is a dialysis patient and did not have dialysis yesterday. -no drainage is noted in the NG tube at this time. -she is NPO on the hypoglycemic protocol has been initiated. (2) End-stage renal disease on hemodialysis: Code(s): N18.6 - End stage renal disease; Z99.2 - Dependence on renal dialysis Status: Chronic Assessment and Plan: -the patient has dialysis on Sunday and Sunday however she did not go Sunday. She denies going today. -nephrology had been consulted from ER and notified the personnel arbitrator that she does not want dialysis today. -the patient is not always compliant with dialysis. She has a tunneled catheter to the right upper chest. -her BUN is 40 creatinine 3.67 with a GFR of 12. She is at her baseline. -monitor her electrolytes closely. (3) UTI (urinary tract infection): Code(s): N39.0 - Urinary tract infection, site not specified Status: Suspected Assessment and Plan: -the patient is already on treatment for pneumonia which includes Rocephin. -blood in urine cultures are pending. -the patient is afebrile and no leukocytosis is noted. (4) Pneumonia: Qualifiers: Laterality: bilateral Lung location: unspecified part of lung Pneumonia type: due to unspecified organism Qualified Code(s): J18.9 - Pneumonia, unspecified organism Code(s): J18.9 - Pneumonia, unspecified organism Status: Acute Assessment and Plan: -the patient has been started on azithromycin and Rocephin. -the patient has no leukocytosis and is afebrile. -sputum and blood cultures are pending. (5) Essential hypertension: Code(s): I10 - Essential (primary) hypertension Status: Chronic Assessment and Plan: -the patient is NPO at this time. -her nifedipine and losartan are on hold at this time. -hydralazine IV p.r.n. with parameters. Quality VTE Prophylaxis VTE prophylaxis: mechanical ordered
[2025-05-30 06:44] LABS: Albumin Level 2.9 g/dL (3.5-5.1); Anion Gap 11 mmol/L (4-12); Blood Urea Nitrogen 40 mg/dL (7-17); Calcium 9.3 mg/dL (8.4-10.2); Carbon Dioxide 26 mmol/L (22-30); Chloride 95 mmol/L (98-107); Estimated CRCL calculation 8 ml/min; Estimated Glomerular Filt Rate 12; Glucose 63 mg/dL (65-110); Potassium 3.8 mmol/L (3.4-5.0); Sodium 132 mmol/L (137-145)
[2025-05-30 06:59] LABS: Hematocrit 34.3 % (37.0-47.0); Hemoglobin 10.7 g/dL (12.0-15.0); Immature Granulocyte Percent A 0.2 % (0-0.5); Lymphocytes Absolute Auto 1.03 K/mm3 (0.9-3.2); Mean Corpuscular HGB Conc 31.2 g/dl (32-36); Mean Corpuscular Hemoglobin 27.3 pg (26-34); Mean Corpuscular Volume 87.5 fl (80-100); Nucleated Red Blood Cells Absolute Auto 0.000 K/mm3 (0.0-0.012); Nucleated Red Blood Cells Perc 0.0 % (0.0-0.2); Platelet Count Result 169 k/mm3 (150-375); Red Blood Count 3.92 M/mm3 (4.2-5.4); White Blood Count 4.5 K/mm3 (4.5-10.0)
[2025-05-30] MEDS: PHENOL/SOD PHENO SPRAY CHERRY (*BKC) 1 SPRAY MUCOUS MEM ×3 (07:08→18:57)
[2025-05-30] MEDS: GLUCAGON FOR INJ 1 MG VIAL IM (07:09)
[2025-05-30 07:38] LABS: Hepatitis B Surface Anti Res Indeterminate
[2025-05-30 08:54] LABS: Hepatitis B Surface Antigen Negative (Negative)
[2025-05-30] MEDS: ONDANSETRON INJ 4 MG/2 ML VIAL IV PUSH (10:08)
--- NOTE | 2025-05-30 10:28 | P.PNIM_ITS ---
Progress Note: A&P Assessment and Plan (1) Small bowel obstruction: Code(s): K56.609 - Unspecified intestinal obstruction, unspecified as to partial versus complete obstruction Status: Resolved Assessment and Plan: -the patient has had multiple surgeries. She has also has small bowel obstruction in the past. 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 -surgery has been consulted. -NG tube has been placed in Chloraseptic for throat discomfort. -no IV fluids were continued at this time as she is a dialysis patient and did not have dialysis yesterday. NG tube in place and draining. -she is NPO on the hypoglycemic protocol has been initiated. (2) End-stage renal disease on hemodialysis: Code(s): N18.6 - End stage renal disease; Z99.2 - Dependence on renal dialysis Status: Chronic Assessment and Plan: -the patient has dialysis on Sunday and Sunday however she did not go Sunday. She denies going today. -nephrology had been consulted from ER and notified the search consultant that she does not want dialysis today. -the patient is not always compliant with dialysis. She has a tunneled catheter to the right upper chest. -her BUN is 40 creatinine 3.67 with a GFR of 12. She is at her baseline. -monitor her electrolytes closely. (3) UTI (urinary tract infection): Code(s): N39.0 - Urinary tract infection, site not specified Status: Suspected Assessment and Plan: -the patient is already on treatment for pneumonia which includes Rocephin. -blood in urine cultures are pending. -the patient is afebrile and no leukocytosis is noted. (4) Pneumonia: Qualifiers: Laterality: bilateral Lung location: unspecified part of lung Pneumonia type: due to unspecified organism Qualified Code(s): J18.9 - Pneumonia, unspecified organism Code(s): J18.9 - Pneumonia, unspecified organism Status: Acute Assessment and Plan: -the patient has been started on azithromycin and Rocephin. -the patient has no leukocytosis and is afebrile. -sputum and blood cultures are pending. (5) Essential hypertension: Code(s): I10 - Essential (primary) hypertension Status: Chronic Assessment and Plan: -the patient is NPO at this time. -her nifedipine and losartan are on hold at this time. -hydralazine IV p.r.n. with parameters. Subjective Date/time seen: 05/30/25 10:28 Interval history: Patient was seen during the morning rounds today. NG tube in place. No shortness of breath or chest pain. Review of Systems Constitutional: Constitutional: Reports as per HPI and Reports no additional constitutional complaints Eyes: Eyes: Reports as per HPI and Reports no additional eye complaints ENT: Reports system reviewed and no additional complaints, except as documented and Reports Normal hearing present Cardiovascular: Cardiovascular: Reports no additional cardiovascular complaints Respiratory: Respiratory: Reports as per HPI and Reports no additional respiratory complaints Gastrointestinal: Gastrointestinal: Reports as per HPI and Reports no additional gastrointestinal complaints Genitourinary: Genitourinary: Reports no additional female genitourinary complaints Musculoskeletal: Musculoskeletal: Reports no additional musculoskeletal complaints Integumentary/Breasts: Skin/Breast: Reports system reviewed and no additional complaints, except as docu Neurologic: Reports system reviewed and no additional complaints, except as documented and Reports Normal hearing present Psychiatric: Psychiatric: Reports no additional psychiatric complaints and Reports as per HPI Hematologic/Lymphatic: Hematologic/Lymphatic: Reports no additional hematologic/lymphatic complaints Allergic/Immunologic: Allergic/Immunologic: Reports no additional allergic/immunologic complaints Exam Const: General: cooperative, healthy appearing, no acute distress, well developed, awake, Physically active and average body habitus Nutritional Appearance: average body habitus Orientation/consciousness: oriented to person, oriented to place, oriented to time and patient oriented x3 Limitations: no limitations HENMT: Head: normal to inspection and No palpable skull fracture present Ears: hearing grossly normal bilaterally Other: NG tube intact her right nares Eyes: General: appearance normal, both eyes and all related structures Alignment and Position: alignment normal Periorbital: periorbital findings normal Eyelids: eyelids normal Conjunctivae: conjunctivae normal Sclera: sclerae normal Cornea: corneas normal Pupils: Equal, round and reactive pupils present and Pupil accommodation reflex normal EOM: EOMs intact bilaterally Neck: Neck: normal visual inspection, full ROM, no lymphadenopathy, trachea midline and supple Thyroid: thyroid normal Chest: Chest palpation & inspection: normal inspection of the chest Other: Dialysis catheter intact to right upper chest Resp: Effort & Inspection: normal respiratory effort Auscultation: clear to auscultation bilaterally Cardio: Palpation: normal PMI Rate: bradycardic Rhythm: regular rhythm Heart sounds: S1 normal heart sound present and S2 normal heart sound present Peripheral pulses: Peripheral pulses 2+ throughout GI: Inspection: normal to inspection Auscultation: High-pitched bowel sounds present Rectal Exam: deferred : General: Yes no CVA tenderness Back/Spine/Pelvis: Back: no CVA tenderness Cervical Spine: cervical ROM normal Thoracic/Lumbar Spine: thoracic and lumbar spine normal to inspection Pelvis: no pain with anterior-posterior compression Skin: General skin exam: normal color Lesions: no lesions Rashes: no rashes Trauma: no lacerations or abrasions Wounds: no wounds Hair: normal Nails: normal Neuro: General: oriented to person, oriented to place, oriented to time and patient oriented x3 Cranial nerves: Yes Equal, round and reactive pupils present and Yes Normal hearing present Cognition (Neuro): normal cognition Speech: normal speech Gait exam (Neuro): Normal gait present Motor exam (neuro): 5/5 motor strength present throughout Sensory Exam: normal sensation Extrem: General: normal to inspection Right upper extremity: normal to inspection and shoulder/upper arm Left upper extremity: normal to inspection and shoulder/upper arm Right lower extremity: normal to inspection Left lower extremity: normal to inspection Psych: Appearance: grossly normal Mental Status: mental status grossly normal Speech and movement: Normal speech and movement present Affect: normal affect Attitude: cooperative Thought process: Normal thought process present Insight: Good insight present (Psych) Judgement: Good judgement present (Psych) Objective Data Vital Signs Vital Signs: Vital Signs - 24 hr 05/29/25 16:09 05/29/25 16:47 05/29/25 16:47 Temperature 36.4 C L Pulse Rate 67 59 L 60 Respiratory Rate 18 15 14 Blood Pressure 144/55 H 180/63 H 180/63 H Pulse Oximetry 98 99 97 Oxygen Delivery Room Air Room Air 05/29/25 17:32 05/29/25 18:15 05/29/25 18:15 Temperature Pulse Rate 60 53 L 53 L Respiratory Rate 22 H 23 H Blood Pressure 155/82 H 190/54 H Pulse Oximetry 100 99 Oxygen Delivery 05/29/25 20:01 05/29/25 23:00 05/29/25 23:07 Temperature 36.4 C L Pulse Rate 57 L 56 L 60 Respiratory Rate 19 20 18 Blood Pressure 205/86 H 192/56 H 189/59 H Pulse Oximetry 99 100 98 Oxygen Delivery 05/29/25 23:30 05/30/25 00:00 05/30/25 00:00 Temperature Pulse Rate 51 L 55 L Respiratory Rate Blood Pressure Pulse Oximetry Oxygen Delivery Room Air 05/30/25 02:00 05/30/25 04:00 05/30/25 04:00 Temperature Pulse Rate 53 L 52 L Respiratory Rate Blood Pressure Pulse Oximetry Oxygen Delivery Room Air 05/30/25 04:00 05/30/25 06:00 05/30/25 08:00 Temperature 36.5 C 36.6 C Pulse Rate 54 L 54 L 56 L Respiratory Rate 18 14 Blood Pressure 184/49 H 174/52 H Pulse Oximetry 97 96 Oxygen Delivery Intake/Output Intake/Output: Intake & Output 05/27/25 05/28/25 05/29/25 05/30/25 23:59 23:59 23:59 23:59 Intake Total 800 Output Total 300 Balance 800 -300 Meds/Results Medications: Active Medications Generic Name Dose Route Start Last Admin Trade Name Chavoq PRN Reason Stop Dose Admin Albuterol 2.5 mg 05/30/25 06:49 Albuterol Sulfate Neb 2.5 Mg/3 Ml Inh INHALATION Q4HRT PRN Shortness Of Breath Dextrose 12.5 gm 05/29/25 20:44 Dextrose 50% 25 Gm/50 Ml Syringe IV PUSH PRN PRN Hypoglycemia Protocol Glucagon 1 mg 05/29/25 20:44 05/30/25 07:09 Glucagon For Inj 1 Mg Vial IM 1 mg PRN PRN Administration Hypoglycemia Protocol Glucose 15 gm 05/29/25 20:44 Glucose Oral Gel 15 Gm Of Glucse In 37.5 Gm Tube PO PRN PRN Hypoglycemia Protocol Hydralazine HCl 10 mg 05/30/25 06:48 Hydralazine Hcl 20 Mg/Ml Vial IV PUSH Q8H PRN Blood Pressure - High Hydromorphone HCl 0.5 mg 05/30/25 06:43 Hydromorphone Hcl Inj (*Crx) 1 Mg/Ml Syr IV PUSH Q3H PRN Pain Rated 7-10 Ceftriaxone Sodium 1 gm/ 50 mls @ 100 mls/hr 05/30/25 21:00 Sodium Chloride IVPB Q24H ANDRÉS Azithromycin 500 mg/ Sodium 250 mls @ 250 mls/hr 05/30/25 22:00 Chloride IVPB 06/02/25 22:59 Q24H ANDRÉS Dextrose 1,000 mls @ 100 mls/hr 05/29/25 20:44 Dextrose 5% 1,000 Ml IVPB PRN PRN Hypoglycemia Protocol Ondansetron HCl 4 mg 05/29/25 20:44 05/30/25 10:08 Ondansetron Inj 4 Mg/2 Ml Vial IV PUSH 4 mg Q4H PRN Administration Nausea Phenol 1 spray 05/30/25 06:22 05/30/25 07:08 Phenol/Sod Pheno [place] (*Bkc) MUCOUS MEM 1 spray PRN PRN Administration Sore Throat Radiology Results: ITS Impressions Chest X-Ray 05/29/25 17:26 Impression: Bilateral pneumonia Abdomen/Pelvis CT 05/29/25 19:10 IMPRESSION: Right double-J ureteral stent is noted. There is mild right hydronephrosis. The left kidneys atrophy. There is fluid filled distended small bowel loops with multiple air-fluid levels may represent partial to early small bowel obstruction. All CT scans at this facility are performed using low dose modulation techniques as appropriate to perform exam including the following: automated exposure control; use of iterative reconstruction technique; adjustment of the mA and/or kV according to patient size (this includes techniques or standardized protocols for targeted exams where dose is matched to indication/reason for exam). Labs Labs: Laboratory Results - last 24 hr 05/29/25 05/29/25 05/29/25 16:57 18:33 19:51 WBC 6.1 RBC 4.76 Hgb 12.9 Hct 41.1 MCV 86.3 MCH 27.1 MCHC 31.4 L RDW 16.1 H Plt Count 224 MPV 9.8 Immature Gran % (Auto) 0.2 Neut % (Auto) 70.0 Lymph % (Auto) 15.7 L [place] % (Auto) 11.0 H Eos % (Auto) 1.6 Baso % (Auto) 1.5 H Lymph # (Auto) 0.96 [place] # (Auto) 0.7 H Eos # (Auto) 0.1 Baso # (Auto) 0.1 Abs Immat Gran (auto) 0.01 Absolute Neuts (auto) 4.3 Absolute Nucleated RBC 0.000 Nucleated RBC % 0.0 Sodium 132 L Potassium 3.9 Chloride 91 L Carbon Dioxide 29 Anion Gap 12 BUN 42 H Creatinine 3.80 H Estim Creat Clear Calc 8 Estimated GFR 12 L Glucose 85 Lactic Acid 0.7 Calcium 10.2 Phosphorus Magnesium 2.4 H Total Bilirubin 0.8 AST 31 ALT 11 Alkaline Phosphatase 68 Total Protein 6.5 Albumin 3.7 Urine Color Yellow Urine Appearance Cloudy H Urine pH 6.0 Ur Specific [place] 1.010 Urine Protein 1+ H Urine Glucose (UA) Negative Urine Ketones Trace H Ur Blood (Man) Negative Urine Nitrate Negative Urine Bilirubin Negative Urine Urobilinogen 0.2 Add Ur Microanalysis Reviewed Leukocyte Esterase Rfl 3+ H Urine RBC 3-5 H Urine WBC 51-100 H Ur Squamous Epith Cells Few Urine Bacteria Rare Urine Casts 3-5 Hep Bs Antigen Hep Bs Antibody Influenza A (RT-PCR) Negative Influenza B (RT-PCR) Negative RSV (RT-PCR) Negative SARS-CoV-2 RNA (RT-PCR) Negative 05/30/25 05/30/25 04:49 04:55 WBC 4.5 RBC 3.92 L Hgb 10.7 L Hct 34.3 L MCV 87.5 MCH 27.3 MCHC 31.2 L RDW 16.3 H Plt Count 169 MPV 10.4 Immature Gran % (Auto) 0.2 Neut % (Auto) 58.5 Lymph % (Auto) 23.0 [place] % (Auto) 12.5 H Eos % (Auto) 4.5 H Baso % (Auto) 1.3 H Lymph # (Auto) 1.03 [place] # (Auto) 0.6 Eos # (Auto) 0.2 Baso # (Auto) 0.1 Abs Immat Gran (auto) 0.01 Absolute Neuts (auto) 2.6 Absolute Nucleated RBC 0.000 Nucleated RBC % 0.0 Sodium 132 L Potassium 3.8 Chloride 95 L Carbon Dioxide 26 Anion Gap 11 BUN 40 H Creatinine 3.67 H Estim Creat Clear Calc 8 Estimated GFR 12 L Glucose 63 L Lactic Acid Calcium 9.3 Phosphorus 4.8 H Magnesium Total Bilirubin AST ALT Alkaline Phosphatase Total Protein Albumin 2.9 L Urine Color Urine Appearance Urine pH Ur Specific [place] Urine Protein Urine Glucose (UA) Urine Ketones Ur Blood (Man) Urine Nitrate Urine Bilirubin Urine Urobilinogen Add Ur Microanalysis Leukocyte Esterase Rfl Urine RBC Urine WBC Ur Squamous Epith Cells Urine Bacteria Urine Casts Hep Bs Antigen Negative Hep Bs Antibody Indeterminate Influenza A (RT-PCR) Influenza B (RT-PCR) RSV (RT-PCR) SARS-CoV-2 RNA (RT-PCR)
--- NOTE | 2025-05-30 10:38 | P.CONNP_ITS ---
Assessment and Plan Assessment and plan (1) End stage renal disease: Code(s): N18.6 - End stage renal disease Status: Chronic Assessment and Plan: * despite missed HD treatment on Sunday -- no urgent need for HD today * furthermore, known history of missing Sunday dialysis treatments * plan next HD on Sunday * normally does HD on Mondays and Fridays - will continue this schedule while hospitalized * follow electrolytes, volume status, and clearance (2) Small bowel obstruction: Code(s): K56.609 - Unspecified intestinal obstruction, unspecified as to partial versus complete obstruction Status: Acute Assessment and Plan: * admission CT scan of A/P with evidence of early/partial small bowel obstruction * also with history of nasuea +vomiting and constipation for the last few days * NG tube in place for decompression * serial abdominal exams and imaging * General Surgery consulted (3) Pneumonia: Qualifiers: Laterality: bilateral Lung location: unspecified part of lung P neumonia type: due to unspecified organism Qualified Code(s): J18.9 - Pneumonia, unspecified organism Code(s): J18.9 - Pneumonia, unspecified organism Status: Acute Assessment and Plan: * as suggested by admission CXR * however, normal WBC, afebrile, and no respiratory symptoms * follow culture data * on antibiotcs (4) UTI (urinary tract infection): Code(s): N39.0 - Urinary tract infection, site not specified Status: Suspected Assessment and Plan: * admission UA suggestive * follow-up on urine culture * on antibiotics (5) Essential hypertension: Code(s): I10 - Essential (primary) hypertension Status: Chronic Assessment and Plan: * noted fluctuations since admission * suspect pain issues playing a role along with inability to take po BP medications * PRN IV medications (i.e. hydralazine or labetalol) for now until she can resume home oral BP medications * follow trend of hemodynamics (6) Anemia: Code(s): D64.9 - Anemia, unspecified Status: Chronic Assessment and Plan: * due to ESRD * JESSY with dialysis * follow trend of H/H I will continue to follow the patient with you while he remains hospitalized and make further recommendations as deemed necessary. Thank you for allowing me to participate in the care of this patient. L History of Present Illness Reason for Consult Consult date: 05/30/25 Reason for consult: end stage renal disease Chief Complaint Chief complaint: SBO, UTI, PNA, ESRD on HD History of Present Illness Narrative: The patient is a 70-year-old female with a past medical history as outlined below who presented to [facility] Emergency Room due to complaints of nausea, vomiting, abdominal pain and generalized weakness. The patient states that these above symptoms have been present for last 3 or 4 days if not longer. She is known to have known neuroendocrine intestinal malignancy and is being followed by [facility] for this issue but apparently is not undergoing any specific treatment. Due to her GI symptoms of nausea and vomiting, she is unable to keep any oral intake down and has had poor oral intake in general as well. Other associated symptoms included constipation for the last few days as well. She denies any overt fevers, chills, dizziness, lightheadedness, palpitations, melena, or hematochezia. As the symptoms continued progressively getting worse, she presented to the emergency room for further assessment. Workup and evaluation emergency room demonstrated the patient be hemodynamically stable and afebrile. Routine blood test demonstrated white blood cell count of 6.1, hemoglobin 12.9, hematocrit 41.1, platelet count of 224, sodium 132, potassium 3.9, bicarb 29, BUN 42 creatinine 3.8 with a glucose of 85, calcium 10.2, magnesium 2.4, normal LFTs, albumin 3.7, and lactic acid 0.7. Viral testing for RSV, COVID, and influenza was negative and her urinalysis demonstrated 1+ protein, trace ketones, 3+ leukocyte esterase, 3-5 red blood cells, 51-100 white blood cells, and rare bacteria. a CT scan of her abdomen pelvis was done which demonstrated a right double-J ureteral stent in association with mild right hydronephrosis, left kidney atrophy, and fluid- filled distended small bowel loops with multiple air-fluid levels which may represent partial to early small-bowel obstruction. Her chest x-ray demonstrated bilateral pneumonia. Given her constellation of symptoms as well as her testing/imaging, appropriate cultures were obtained and she was started on antibiotics for presumed community-acquired pneumonia and possible urinary tract infection and an NG-tube was placed for decompression given her suspected small bowel obstruction. She was subsequently admitted to the hospital for further evaluation and therapy. Since her admission, she really does not feel any significantly better but does not feel any worse either. No other significant issues/problems overnight or earlier this morning noted. Renal consultation was requested due to her end-stage renal disease. The patient normally dialyzes on a Sunday and Sunday schedule currently at [facility] under the care of Dr. Grey. Her last dialysis treatment was earlier this week on Sunday And she apparently missed her treatment on Sunday due to her presentation to the ER and her above symptoms. Apparently, from my discussion with her outpatient dialysis unit, her compliance with her dialysis treatments is quite poor. At best, she usually attends treatments on Mondays and if she does show up for her treatment on Sunday, she only runs for 2 hours as opposed to her full 3 hour treatment time. She tells me that she has had issues and problems with dialysis access placement secondary to her significant and profound peripheral vascular disease and has had issues/problems with dialysis catheters as well requiring multiple exchanges and placements since her initiation on renal replacement therapy/dialysis. Her current dialysis access remains a tunneled HD catheter. In spite of her missed dialysis treatment yesterday, she has no critical electrolyte abnormalities, metabolic acidosis, volume overload, or evidence of uremia. Currently, at the time my visit, she is in mild discomfort but in no acute distress. Review of Systems 2 Review of Systems: As per HPI. REPLACED BY [facility] Past Medical History Medical History Lung nodule The patient stated that she took radiation for lung cancer and it is now resolved. Anxiety History of small bowel obstruction Carotid stenosis Most recent carotid Doppler July 2022: Less than 50% stenosis right internal carotid artery and greater than 70% stenosis of the left internal carotid artery. Hypothyroidism History of GI bleed Multiple and requiring transfusion. No longer on chronic anticoagulation due to bleeds Atrial fibrillation Kidney stones Peripheral artery disease Moderate to severe bilateral lower extremity peripheral vascular disease noted on ABIs July 2022 End-stage renal disease on hemodialysis Essential hypertension Coronary artery disease Surgical History Surgical History History of bowel resection History of laparoscopic cholecystectomy (2000) History of vascular surgery History of cardiac radiofrequency ablation Retained ureteral stent Chronic S/P dialysis catheter insertion Right upper chest was placed and removed, currently in left upper chest History of ventral hernia repair With mesh Stenosis of right femoral artery Status post stent approximately 1994 History of abdominal aortic aneurysm repair (1997) Open repair History of four vessel coronary artery bypass graft (1997) Family History Family History Sibling Acute myocardial infarction Hx of CABG Sibling , As a child Third degree burn injury Sibling Opiate abuse, continuous Mother Age older than 80 years Father , Age greater than 80 Acute myocardial infarction, Onset Age: 45 Sibling Acute myocardial infarction Heart disease Social History Social History Social History: She is . Surrogate medical decision maker: Beverley Ann, daughter Code status: Full code Smoking packs per day: 2 Smoking cigarettes per day: 40.0 Years smoked: 28 Smoking pack-years: 56.00 Smoking status: Former smoker Tobacco type: cigarettes Smoking end date: 07/30/97 Alcohol intake: never Substance use: never Substance use type: does not use Do You Feel Safe in your Home?: Yes Lack of Transportation: No Lack of Food: Never True Current Housing: I Have Housing Concerned About Future Housing: No Difficulty Paying Gas/Electric Bills: No Difficulty Paying for Meds: No Currently Unemployed: No Education: High School Diploma/GED Difficulty w/ Childcare or Family Care: No Additional living arrangements comments: She is and lives alone. She has 1 of her 3 daughters living nearby. 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 Spiritual care concerns: No Meds Home Medications and Allergies Home Medications ?Medication ?Instructions ?Recorded ?Confirmed ?Type aspirin 325 mg tablet 325 mg PO HS 11/26/22 History clonazepam 1 mg tablet 0.5 mg PO BID PRN Anxiety 05/29/25 History furosemide 40 mg tablet 40 mg PO BID 11/26/22 History gabapentin 300 mg capsule 300 mg PO HS 11/26/22 History Colace 100 mg PO DAILY PRN Constipa tion 04/10/24 05/29/25 History Miralax 17 g PO DAILY PRN Constipati on 04/10/24 05/29/25 History Vitamin D3 1,000 units PO DAILY 4 05/29/25 History losartan 25 mg tablet 50 mg (2 x 25 mg) PO DAILY # 30 tabs 04/14/24 05/29/25 Rx hydralazine 25 mg tablet 75 mg PO TID 05/29/25 History nifedipine 30 mg tablet,extended 60 mg PO HS 05/29/25 05/29/25 History release 24 hr (Procardia XL) octreotide acetate 100 mcg/mL (1 100 mcg subcut Q24H P RN diarrhea 05/29/25 05/29/25 History mL) injection syringe ondansetron 8 mg disintegrating 8 mg translingual Q8H PRN nausea 05/29/25 05/29/25 History tablet and vomiting pantoprazole 40 mg tablet,delayed 40 mg PO DAILY 05/2905/29/25 History release Allergies Allergy/AdvReac Type Severity Reaction Status Date / Time iohexol (From contrast - CT, Allergy Mild Rash Verified 05/29/25 18:31 X-RAY) ciprofloxacin (From Cipro) AdvReac Unknown Other Verified 05/29/25 23:44 fentanyl AdvReac Other Verified 05/29/25 18:31 Vital Signs Vital Signs Temp Pulse Resp BP Pulse Ox O2 Del Method 05/30/25 10:20 98 F 58 L 14 174/69 H 98 05/30/25 08:00 53 L 05/30/25 08:00 97.8 F 56 L 14 174/52 H 96 05/30/25 06:00 54 L 05/30/25 04:00 97.7 F 54 L 18 184/49 H 97 05/30/25 04:00 52 L 05/30/25 04:00 Room Air 05/30/25 02:00 53 L 05/30/25 00:00 55 L 05/30/25 00:00 Room Air 05/29/25 23:30 51 L 05/29/25 23:07 60 18 189/59 H 98 05/29/25 23:00 97.5 F L 56 L 20 192/56 H 100 05/29/25 20:01 57 L 19 205/86 H 99 05/29/25 18:15 53 L 23 H 190/54 H 99 05/29/25 18:15 53 L 05/29/25 17:32 60 22 H 155/82 H 100 05/29/25 16:47 60 14 180/63 H 97 05/29/25 16:47 59 L 15 180/63 H 99 Room Air 05/29/25 16:09 97.5 F L 67 18 144/55 H 98 Room Air Exam 2 Narrative: GENERAL APPEARANCE: elderly and thin/frail appearing female in no acute distress HEENT: normocephalic, atraumatic, normal conjunctiva and sclera, nares patient NECK: no lymphadenopathy, thyromegaly, or JVD MOUTH: normal lips, teeth, and gums CARDIOVASCULAR: RRR, normal S1 and S2, no rub RESPIRATORY: clear to auscultation ABDOMEN: soft, mild tenderness, hypoactive bowel sounds present EXTREMITIES: no evidence of cyanosis, clubbing, or edema NEUROLOGICAL: alert and oriented x 3; CN II - XII intact bilaterally; no focal deficits noted Results Lab Results 05/30/25 04:49 05/30/25 04:49 Lab results: Most recent lab results Calcium 9.3 mg/dL (8.4-10.2) 05/30/25 04:49 Phosphorus 4.8 mg/dL (2.5-4.5) H 05/30/25 04:49 Magnesium 2.4 mg/dL (1.6-2.3) H 05/29/25 16:57
--- NOTE | 2025-05-30 14:04 | PM.CNGS ---
Assessment and Plan Assessment and plan (1) Small bowel obstruction: Code(s): K56.609 - Unspecified intestinal obstruction, unspecified as to partial versus complete obstruction Status: Acute Assessment and Plan: History, exam, imaging suggests recurrent small-bowel obstruction. Abdomen is not distended nor tender. Plain films show that the nasogastric tube needs to be advanced which I will order. I have talked to nursing about hooking the nasogastric tube up to suction. Will follow with serial exam, imaging, lab work. Hopefully this will resolve quickly as it has done in the past. (2) End-stage renal disease on hemodialysis: Code(s): N18.6 - End stage renal disease; Z99.2 - Dependence on renal dialysis Status: Chronic Assessment and Plan: Dialysis Sunday and Sunday (3) Pneumonia: Qualifiers: Laterality: bilateral Lung location: unspecified part of lung Pneumonia type: due to unspecified organism Qualified Code(s): J18.9 - Pneumonia, unspecified organism Code(s): J18.9 - Pneumonia, unspecified organism Status: Acute Assessment and Plan: Chest x-ray report shows left upper lobe and right middle or lower lobe infiltrate. I reviewed the chest x-ray and the abnormalities were seen. I am not sure if 1 of these infiltrates is not a result of scarring from radiation therapy. She is on antibiotics for pneumonia although does not show any cough, shortness of breath, or hypoxemia. (4) Protein-calorie malnutrition, moderate: Code(s): E44.0 - Moderate protein-calorie malnutrition Status: Acute Assessment and Plan: BMI 16.4, this further increases any surgical risks. (5) Carotid stenosis, left: Code(s): I65.22 - Occlusion and stenosis of left carotid artery Status: Chronic Assessment and Plan: Over 70% left internal carotid artery stenosis noted on carotid Doppler 2 years ago. No follow-up or history of intervention found. (6) History of abdominal aortic aneurysm repair: Onset Date: 1997 Code(s): Z98.890 - Other specified postprocedural states Status: Chronic Assessment and Plan: 1997 (7) Peripheral artery disease: Code(s): I73.9 - Peripheral vascular disease, unspecified Status: Chronic Assessment and Plan: Inflow disease with R ALEXIS 0.49, L 0.July (8) Neuroendocrine cancer: Code(s): C7A.8 - Other malignant neuroendocrine tumors Status: Chronic Assessment and Plan: Being followed (9) Lung nodule: Code(s): R91.1 - Solitary pulmonary nodule Status: Chronic Assessment and Plan: Old records show patient was to have a lung biopsy but apparently she did not have this. She does report that she had radiation therapy for lung cancer. I doubt very much they would treat with radiation therapy without a positive tissue diagnosis. Treated at [facility]. History of Present Illness Consult details Consult date: 05/30/25 Reason for consult: abdominal pain Requesting physician: Kaylee Aburto PA-C Narrative: Patient is a 70-year-old woman who has had multiple previous abdominal surgeries and multiple episodes of small-bowel obstruction. She came to the emergency room yesterday with complaints of weakness, nausea, vomiting, periumbilical abdominal pain, and obstipation for about [address] scan in the emergency room showed evidence of a recurrent partial small-bowel obstruction. Patient has had a nasogastric tube placed. She was admitted. She tells me that the abdominal pain has resolved. She has not had a bowel movement and still feels very weak. She tells me that she has an abdominal neuroendocrine tumor which has not been removed as abdominal surgery felt to be too risky. She is followed for this at [facility]. She also tells me that she has had a lung cancer that was treated with radiation therapy. Both of these tumors were noted and managed within the last 4 years. She is a severe vasculopath as she has had AAA repair, 4 vessel CABG, Fem-Fem vascular bypass, has bilateral ileofemoral stents. She last had ALEXIS's here in July 2022 which showed inflow disease bilaterally and ALEXIS 0.49 on right leg, 0.41 on left leg. Carotid doppler testing was also done then and showed >70% left internal carotid artery stenosis, right was normal. Nothing from the chart suggests she had intervention on the LICA. She is not a very good historian at this time. Most of history comes from review of old records. Aside from the AAA open repair, she has also had bowel resection, laparoscopic cholecystectomy, and laparoscopic ventral hernia repair with mesh. Imaging shows this mesh to be in RLQ. Patient also had CXR in ED which showed GISSEL and RLL pneumonia. Additionally, patient has history of ESRD and dialysis on Sunday and Sunday. She did not go for dialysis yesterday (Sunday) due to feeling ill. She is seen now in consultation. I asked her about her IV contrast allergy. She did not report an allergic response but rather that she would not have any contrast for fear of it harming her kidney function. Questioning further, she stated she would refuse any imaging study with contrast for this reason. When I told her that water soluble contrast GI imaging can be very helpful in SBO management, even resulting in resolution of sbo, she was very surprised and had no immediate response. Review of Systems Review of Systems: All systems reviewed & are unremarkable except as noted in HPI and below (HPI) [facility] Past Medical History Medical History Lung nodule The patient stated that she took radiation for lung cancer and it is now resolved. Anxiety History of small bowel obstruction Carotid stenosis Most recent carotid Doppler July 2022: Less than 50% stenosis right internal carotid artery and greater than 70% stenosis of the left internal carotid artery. Hypothyroidism History of GI bleed Multiple and requiring transfusion. No longer on chronic anticoagulation due to bleeds Atrial fibrillation Kidney stones Peripheral artery disease Moderate to severe bilateral lower extremity peripheral vascular disease noted on ABIs July 2022 End-stage renal disease on hemodialysis Essential hypertension Coronary artery disease Surgical History Surgical History History of bowel resection History of laparoscopic cholecystectomy (2000) History of vascular surgery History of cardiac radiofrequency ablation Retained ureteral stent Chronic S/P dialysis catheter insertion Right upper chest was placed and removed, currently in left upper chest History of ventral hernia repair With mesh Stenosis of right femoral artery Status post stent approximately 1994 History of abdominal aortic aneurysm repair (1997) Open repair History of four vessel coronary artery bypass graft (1997) Family History Family History Sibling Acute myocardial infarction Hx of CABG Sibling , As a child Third degree burn injury Sibling Opiate abuse, continuous Mother Age older than 80 years Father , Age greater than 80 Acute myocardial infarction, Onset Age: 45 Sibling Acute myocardial infarction Heart disease Social History Social History Social History: She is . Surrogate medical decision maker: Beverley Ann, daughter Code status: Full code Smoking packs per day: 2 Smoking cigarettes per day: 40.0 Years smoked: 28 Smoking pack-years: 56.00 Smoking status: Former smoker Tobacco type: cigarettes Smoking end date: 07/30/97 Alcohol intake: never Substance use: never Substance use type: does not use Do You Feel Safe in your Home?: Yes Lack of Transportation: No Lack of Food: Never True Current Housing: I Have Housing Concerned About Future Housing: No Difficulty Paying Gas/Electric Bills: No Difficulty Paying for Meds: No Currently Unemployed: No Education: High School Diploma/GED Difficulty w/ Childcare or Family Care: No Additional living arrangements comments: She is and lives alone. She has 1 of her 3 daughters living nearby. 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 Spiritual care concerns: No Meds Home Medications and Allergies Home Medications ?Medication ?Instructions ?Recorded ?Confirmed ?Type aspirin 325 mg tablet 325 mg PO HS 11/26/22 05/29/25 History clonazepam 1 mg tablet 0.5 mg PO BID PRN Anxiety 11/26/22 05/29/25 History furosemide 40 mg tablet 40 mg PO BID 11/26/22 05/29/25 History gabapentin 300 mg capsule 300 mg PO HS 11/26/22 05/29/25 History Colace 100 mg PO DAILY PRN Constipation 04/10/24 05/29/25 History Miralax 17 g PO DAILY PRN Constipation 04/10/24 05/29/25 History Vitamin D3 1,000 units PO DAILY 04/10/24 05/29/25 History losartan 25 mg tablet 50 mg (2 x 25 mg) PO DAILY #30 tabs 04/14/24 05/29/25 Rx hydralazine 25 mg tablet 75 mg PO TID 05/29/25 05/29/25 History nifedipine 30 mg tablet,extended 60 mg PO HS 05/29/25 05/29/25 History release 24 hr (Procardia XL) octreotide acetate 100 mcg/mL (1 100 mcg subcut Q24H PRN diarrhea 05/29/25 05/29/25 History mL) injection syringe ondansetron 8 mg disintegrating 8 mg translingual Q8H PRN nausea 05/29/25 05/29/25 History tablet and vomiting pantoprazole 40 mg tablet,delayed 40 mg PO DAILY 05/29/25 05/29/25 History release Allergies Allergy/AdvReac Type Severity Reaction Status Date / Time iohexol (From contrast - CT, Allergy Mild Rash Verified 05/29/25 18:31 X-RAY) ciprofloxacin (From Cipro) AdvReac Unknown Other Verified 05/29/25 23:44 fentanyl AdvReac Other Verified 05/29/25 18:31 Vital Signs Vital Signs - 24 hr 05/29/25 16:09 05/29/25 16:47 05/29/25 16:47 Temperature 36.4 C L Pulse Rate 67 59 L 60 Respiratory Rate 18 15 14 Blood Pressure 144/55 H 180/63 H 180/63 H Pulse Oximetry 98 99 97 Oxygen Delivery Room Air Room Air 05/29/25 17:32 05/29/25 18:15 05/29/25 18:15 Temperature Pulse Rate 60 53 L 53 L Respiratory Rate 22 H 23 H Blood Pressure 155/82 H 190/54 H Pulse Oximetry 100 99 Oxygen Delivery 05/29/25 20:01 05/29/25 23:00 05/29/25 23:07 Temperature 36.4 C L Pulse Rate 57 L 56 L 60 Respiratory Rate 19 20 18 Blood Pressure 205/86 H 192/56 H 189/59 H Pulse Oximetry 99 100 98 Oxygen Delivery 05/29/25 23:30 05/30/25 00:00 05/30/25 00:00 Temperature Pulse Rate 51 L 55 L Respiratory Rate Blood Pressure Pulse Oximetry Oxygen Delivery Room Air 05/30/25 02:00 05/30/25 04:00 05/30/25 04:00 Temperature Pulse Rate 53 L 52 L Respiratory Rate Blood Pressure Pulse Oximetry Oxygen Delivery Room Air 05/30/25 04:00 05/30/25 06:00 05/30/25 08:00 Temperature 36.5 C 36.6 C Pulse Rate 54 L 54 L 56 L Respiratory Rate 18 14 Blood Pressure 184/49 H 174/52 H Pulse Oximetry 97 96 Oxygen Delivery 05/30/25 08:00 05/30/25 10:00 05/30/25 11:50 Temperature 36.6 C Pulse Rate 53 L 54 L 58 L Respiratory Rate 14 Blood Pressure 174/69 H Pulse Oximetry 98 Oxygen Delivery Exam Const: General: cooperative, comfortable, no acute distress, alert, awake, tired appearing, malnourished and underweight Nutritional Appearance: underweight HENMT: Head: normocephalic and atraumatic Mouth: Yes lip normal, Yes dry mucous membranes and Yes other (Nasogastric tube not hooked to suction) Teeth and gingiva: poor dentition Eyes: Conjunctivae: conjunctivae normal Pupils: Equal, round and reactive pupils present EOM: EOMs intact bilaterally Neck: Neck: normal visual inspection, no lymphadenopathy and nontender Resp: Effort & Inspection: normal respiratory effort Auscultation: clear to auscultation bilaterally Cardio: Rate: regular rate Rhythm: regular rhythm Heart sounds: no gallops, no murmurs and no rubs GI: Inspection: non-distended, scaphoid, scar (Multiple) and no visible herniation GI Palp: Yes Firmness to palpation present (GI), No Tenderness to palpation present (GI), No Guarding due to palpation present (GI), No Hepatomegaly present, No Splenomegaly present, No Hernia present and Yes Palpable mass present (Right lower quadrant, consistent with previous hernia repair) Auscultation: normoactive bowel sounds Skin: Lesions: no lesions Rashes: no rashes Neuro: General: no focal motor deficits and CN's II-XI intact bilaterally Cranial nerves: Yes Equal, round and reactive pupils present, Yes Bilaterally intact EOM present, Yes facial symmetry and Yes Midline tongue present Speech: normal speech Motor exam (neuro): 5/5 motor strength present throughout and Motor abnormalities not present Extrem: General: no clubbing, cyanosis or edema and edema Psych: Speech and movement: Clear speech present Affect: Blunted affect present Attitude: cooperative Thought process: Illogical thought process present Thought content: Yes Phobia(s) present Insight: Limited insight present (Psych) Judgement: Limited judgement present (Psych) Results Labs 05/30/25 04:49 05/30/25 04:49 Labs: Abnormal lab results 05/29/25 05/29/25 05/30/25 Range/Units 16:57 19:51 04:49 RBC 3.92 L (4.2-5.4) M/mm3 Hgb 10.7 L (12.0-15.0) g/dL Hct 34.3 L (37.0-47.0) % MCHC 31.4 L 31.2 L (32-36) g/dl RDW 16.1 H 16.3 H (11.5-14.5) % Lymph % (Auto) 15.7 L (18.3-44.2) % Hanson % (Auto) 11.0 H 12.5 H (2.6-8.5) % Eos % (Auto) 4.5 H (0-4.4) % Baso % (Auto) 1.5 H 1.3 H (0.2-1.2) % Hanson # (Auto) 0.7 H (0.1-0.6) K/mm3 Sodium 132 L 132 L (137-145) mmol/L Chloride 91 L 95 L (98-107) mmol/L BUN 42 H 40 H (7-17) mg/dL Creatinine 3.80 H 3.67 H (0.7-1.0) mg/dL Estimated GFR 12 L 12 L (59 - ) Glucose 63 L (65-110) mg/dL Phosphorus 4.8 H (2.5-4.5) mg/dL Magnesium 2.4 H (1.6-2.3) mg/dL Albumin 2.9 L (3.5-5.1) g/dL Urine Appearance Cloudy H (Clear) Urine Protein 1+ H (Negative) mg/dL Urine Ketones Trace H (Negative) mg/dL Leukocyte Esterase Rfl 3+ H (Negative) BERTHA/UL Urine RBC 3-5 H (0-2) /hpf Urine WBC 51-100 H (0-3) /hpf Diabetes panel 05/29/25 05/30/25 Range/Units 16:57 04:49 Sodium 132 L 132 L (137-145) mmol/L Potassium 3.9 3.8 (3.4-5.0) mmol/L Chloride 91 L 95 L (98-107) mmol/L Carbon Dioxide 29 26 (22-30) mmol/L BUN 42 H 40 H (7-17) mg/dL Creatinine 3.80 H 3.67 H (0.7-1.0) mg/dL Glucose 85 63 L (65-110) mg/dL Calcium 10.2 9.3 (8.4-10.2) mg/dL AST 31 (14-36) U/L ALT 11 (6-35) U/L Alkaline Phosphatase 68 (38-126) U/L Total Protein 6.5 (6.3-8.2) g/dL Albumin 3.7 2.9 L (3.5-5.1) g/dL Calcium panel 05/29/25 05/30/25 Range/Units 16:57 04:49 Calcium 10.2 9.3 (8.4-10.2) mg/dL Phosphorus 4.8 H (2.5-4.5) mg/dL Albumin 3.7 2.9 L (3.5-5.1) g/dL Pituitary panel 05/29/25 05/30/25 Range/Units 16:57 04:49 Sodium 132 L 132 L (137-145) mmol/L Potassium 3.9 3.8 (3.4-5.0) mmol/L Chloride 91 L 95 L (98-107) mmol/L Carbon Dioxide 29 26 (22-30) mmol/L BUN 42 H 40 H (7-17) mg/dL Creatinine 3.80 H 3.67 H (0.7-1.0) mg/dL Glucose 85 63 L (65-110) mg/dL Calcium 10.2 9.3 (8.4-10.2) mg/dL Adrenal panel 05/29/25 05/30/25 Range/Units 16:57 04:49 Sodium 132 L 132 L (137-145) mmol/L Potassium 3.9 3.8 (3.4-5.0) mmol/L Chloride 91 L 95 L (98-107) mmol/L Carbon Dioxide 29 26 (22-30) mmol/L BUN 42 H 40 H (7-17) mg/dL Creatinine 3.80 H 3.67 H (0.7-1.0) mg/dL Glucose 85 63 L (65-110) mg/dL Calcium 10.2 9.3 (8.4-10.2) mg/dL Total Bilirubin 0.8 (0.2-1.3) mg/dL AST 31 (14-36) U/L ALT 11 (6-35) U/L Alkaline Phosphatase 68 (38-126) U/L Total Protein 6.5 (6.3-8.2) g/dL Albumin 3.7 2.9 L (3.5-5.1) g/dL All other labs normal. Imaging Chest x-ray: report reviewed and image reviewed Abdominal x-ray: report reviewed and image reviewed Abdomen CT scan report/results: report reviewed and image reviewed CT scan - pelvis: report reviewed and image reviewed
[2025-05-30] MEDS: cefTRIAXone 1 GM in SODIUM CHLORIDE 0.9% IV 50 ML 100 ML IVPB (20:44)
[2025-05-30] MEDS: AZITHROMYCIN IV 500 MG in SODIUM CHLORIDE 0.9% IV 250 ML IVPB (22:14)
[2025-05-31] VITALS (15 sets, daily range): BP systolic 219–234; BP diastolic 47–65; PULSE 54–63; RESP 14–18; TEMP 36.2–36.4; O2SAT 97–99
--- NOTE | 2025-05-31 01:56 | PC.NURSE ---
Daylight Savings Time For Daylight Savings Time Ending in the Fall - Clocks are moved back. For Daylight Savings Time Beginning in the Spring - Clocks are moved ahead. For [facility], the time of change occurs at 0200 hrs. Time is taken from the material mixer. This entry on the patient's chart recognizes the change in time reflected during documentation. Example: 2 entries for vital signs may be charted for 0200 hrs.
--- NOTE | 2025-05-31 01:57 | PC.NURSE ---
Daylight Savings Time For Daylight Savings Time Ending in the Fall - Clocks are moved back. For Daylight Savings Time Beginning in the Spring - Clocks are moved ahead. For [facility], the time of change occurs at 0200 hrs. Time is taken from the biosolids management technician. This entry on the patient's chart recognizes the change in time reflected during documentation. Example: 2 entries for vital signs may be charted for 0200 hrs.
[2025-05-31 04:26] LABS: Hematocrit 38.1 % (37.0-47.0); Hemoglobin 11.6 g/dL (12.0-15.0); Mean Corpuscular HGB Conc 30.4 g/dl (32-36); Mean Corpuscular Hemoglobin 27.2 pg (26-34); Mean Corpuscular Volume 89.2 fl (80-100); Platelet Count Result 187 k/mm3 (150-375); Red Blood Count 4.27 M/mm3 (4.2-5.4); White Blood Count 6.4 K/mm3 (4.5-10.0)
[2025-05-31 04:51] LABS: Alanine Aminotransferase 9 U/L (6-35); Albumin Level 3.3 g/dL (3.5-5.1); Alkaline Phosphatase 59 U/L (38-126); Anion Gap 13 mmol/L (4-12); Aspartate Amino Transferase 27 U/L (14-36); Bilirubin,Total 0.5 mg/dL (0.2-1.3); Blood Urea Nitrogen 41 mg/dL (7-17); Calcium 10.1 mg/dL (8.4-10.2); Carbon Dioxide 25 mmol/L (22-30); Chloride 98 mmol/L (98-107); Estimated CRCL calculation 8 ml/min; Estimated Glomerular Filt Rate 12; Glucose 49 mg/dL (65-110); Potassium 3.6 mmol/L (3.4-5.0); Sodium 136 mmol/L (137-145); Total Protein 5.8 g/dL (6.3-8.2)
[2025-05-31] MEDS: DEXTROSE 50% 25 GM/50 ML SYRINGE IV PUSH (05:24)
--- NOTE | 2025-05-31 10:35 | P.PNNP_ITS ---
Progress Note: A&P Assessment and Plan (1) End stage renal disease: Code(s): N18.6 - End stage renal disease Status: Chronic Assessment and Plan: * plan next HD tomorrow * normally does HD on Mondays and Fridays - will continue this schedule while hospitalized * follow electrolytes, volume status, and clearance (2) Small bowel obstruction: Code(s): K56.609 - Unspecified intestinal obstruction, unspecified as to partial versus complete obstruction Status: Acute Assessment and Plan: * admission CT scan of A/P with evidence of early/partial small bowel obstruction * also with history of nausea +vomiting and constipation for the last few days * NG tube in place for decompression * serial abdominal exams and imaging * General Surgery recommendations noted (3) Pneumonia: Qualifiers: Laterality: bilateral Lung location: unspecified part of lung P neumonia type: due to unspecified organism Qualified Code(s): J18.9 - Pneumonia, unspecified organism Code(s): J18.9 - Pneumonia, unspecified organism Status: Acute Assessment and Plan: * as suggested by admission CXR * however, normal WBC, afebrile, and no respiratory symptoms * follow culture data * on antibiotcs (4) UTI (urinary tract infection): Code(s): N39.0 - Urinary tract infection, site not specified Status: Suspected Assessment and Plan: * admission UA suggestive * follow-up on urine culture * on antibiotics (5) Essential hypertension: Code(s): I10 - Essential (primary) hypertension Status: Chronic Assessment and Plan: * noted fluctuations since admission * suspect pain issues playing a role along with inability to take po BP medications * PRN IV medications (i.e. hydralazine or labetalol) for now until she can resume home oral BP medications * follow trend of hemodynamics (6) Anemia: Code(s): D64.9 - Anemia, unspecified Status: Chronic Assessment and Plan: * due to ESRD * JESSY with dialysis * follow trend of H/H Will continue to follow. L Subjective Date/time seen: 05/31/25 10:35 Interval history: Follow-up for end stage renal disease on hemodialysis. Abdominal pain seems to have improved and passing flatus; issues with hypoglycemia noted earlier this morning; erratic blood pressure readings noted in the last 24 hours; no other acute complaints other than issues with insomnia and profound fatigue. Exam 2 Narrative: General: elderly and thin/frail appearing female in NAD Heart: normal S1 and S2; no rub Lungs: clear to auscultation Abdomen: soft, nontender, nondistended, hypoactive bowel sounds Extremities: no cyanosis or clubbing; no edema Skin: warm and dry Objective Data Vital Signs Vital Signs: Vital Signs Temp Pulse Resp BP Pulse Ox O2 Del Method 05/31/25 10:00 58 L 05/31/25 08:00 62 05/31/25 08:00 99 Room Air 05/31/25 07:57 97.6 F 57 L 18 227/64 H 99 05/31/25 06:00 54 L 05/31/25 04:00 Room Air 05/31/25 04:00 57 L 05/31/25 04:00 97.6 F 56 L 14 219/53 H 98 05/31/25 02:00 54 L 05/31/25 00:00 55 L 05/31/25 00:00 Room Air 05/30/25 23:57 97.4 F L 60 14 166/53 H 98 05/30/25 22:00 53 L 05/30/25 20:00 62 05/30/25 20:00 Room Air 05/30/25 20:00 97.7 F 59 L 15 189/57 H 98 05/30/25 18:00 60 Intake/Output Intake/Output: Intake & Output 05/28/25 05/29/25 05/30/25 05/31/25 23:59 23:59 23:59 22:59 Intake Total 800 300 0 Output Total 350 100 Balance 800 -50 -100 Meds/Results Medications: Active Medications Generic Name Dose Route Start Last Admin Trade Name Freq PRN Reason Stop Dose Admin Albuterol 2.5 mg 05/30/25 06:49 Albuterol Sulfate Neb 2.5 Mg/3 Ml Inh INHALATION Q4HRT PRN Shortness Of Breath Clonazepam 0.5 mg 05/31/25 13:27 Clonazepam (*Crx) 0.5 Mg Tablet PO BID PRN Anxiety Clonidine HCl 1 patch 05/31/25 09:00 05/31/25 08:23 Clonidine 0.2 Mg/24 Hr Patch TRANSDERM 1 patch WEEKLY ANDRÉS Administration Dextrose 12.5 gm 05/29/25 20:44 05/31/25 05:24 Dextrose 50% 25 Gm/50 Ml Syringe IV PUSH 12.5 gm PRN PRN Administration Hypoglycemia Protocol Gabapentin 300 mg 05/31/25 21:00 Gabapentin 300 Mg Capsule PO HS ANDRÉS Glucagon 1 mg 05/29/25 20:44 05/30/25 07:09 Glucagon For Inj 1 Mg Vial IM 1 mg PRN PRN Administration Hypoglycemia Protocol Glucose 15 gm 05/29/25 20:44 Glucose Oral Gel 15 Gm Of Glucse In 37.5 Gm Tube PO PRN PRN Hypoglycemia Protocol Hydralazine HCl 10 mg 05/30/25 06:48 05/31/25 08:24 Hydralazine Hcl 20 Mg/Ml Vial IV PUSH 10 mg Q8H PRN Administration Blood Pressure - High Hydromorphone HCl 0.5 mg 05/30/25 06:43 Hydromorphone Hcl Inj (*Crx) 1 Mg/Ml Syr IV PUSH Q3H PRN Pain Rated 7-10 Ceftriaxone Sodium 1 gm/ 50 mls @ 100 mls/hr 05/30/25 21:00 05/30/25 21:14 Sodium Chloride IVPB Infused Q24H ANDRÉS Infusion Azithromycin 500 mg/ Sodium 250 mls @ 250 mls/hr 05/30/25 22:00 05/30/25 23:15 Chloride IVPB 06/02/25 22:59 Infused Q24H ANDRÉS Infusion Dextrose 1,000 mls @ 100 mls/hr 05/29/25 20:44 Dextrose 5% 1,000 Ml IVPB PRN PRN Hypoglycemia Protocol Dextrose 1,000 mls @ 75 mls/hr 05/31/25 09:15 05/31/25 11:09 Dextrose 5% 1,000 Ml IV CONT 75 mls/hr .[id number] ANDRÉS Administration Ondansetron HCl 4 mg 05/29/25 20:44 05/30/25 10:08 Ondansetron Inj 4 Mg/2 Ml Vial IV PUSH 4 mg Q4H PRN Administration Nausea Phenol 1 spray 05/30/25 06:22 05/30/25 18:57 Phenol/Sod Pheno [facility]) MUCOUS MEM 1 spray PRN PRN Administration Sore Throat Trazodone HCl 50 mg 05/31/25 13:29 Trazodone Hcl 50 Mg Tablet PO HS PRN Insomnia Radiology Results: ITS Impressions Chest X-Ray 05/29/25 17:26 Impression: Bilateral pneumonia Abdomen/Pelvis CT 05/29/25 19:10 IMPRESSION: Right double-J ureteral stent is noted. There is mild right hydronephrosis. The left kidneys atrophy. There is fluid filled distended small bowel loops with multiple air-fluid levels may represent partial to early small bowel obstruction. All CT scans at this facility are performed using low dose modulation techniques as appropriate to perform exam including the following: automated exposure control; use of iterative reconstruction technique; adjustment of the mA and/or kV according to patient size (this includes techniques or standardized protocols for targeted exams where dose is matched to indication/reason for exam). Abdomen X-Ray 05/31/25 09:20 IMPRESSION: 1. No significant change or acute abnormality given supine technique. Labs Labs: Laboratory Tests 05/31/25 04:14 05/31/25 04:14 Calcium 10.1 Total Bilirubin 0.5 AST 27 ALT 9 Alkaline Phosphatase 59 Total Protein 5.8 L Albumin 3.3 L
[2025-05-31] MEDS: DEXTROSE 5% 1,000 ML 1,000 ML 75 ML IV CONT (11:09)
--- NOTE | 2025-05-31 11:12 | P.PNIM_ITS ---
Progress Note: A&P Assessment and Plan (1) Small bowel obstruction: Code(s): K56.609 - Unspecified intestinal obstruction, unspecified as to partial versus complete obstruction Status: Acute Assessment and Plan: -the patient has had multiple surgeries. She has also has small bowel obstruction in the past. 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 -surgery has been consulted. -NG tube has been placed in Chloraseptic for throat discomfort. -no IV fluids were continued at this time as she is a dialysis patient and did not have dialysis yesterday. NG tube in place and draining. -she is NPO on the hypoglycemic protocol has been initiated. 05/31/2025 Repeat KUB, no significant change (2) End-stage renal disease on hemodialysis: Code(s): N18.6 - End stage renal disease; Z99.2 - Dependence on renal dialysis Status: Chronic Assessment and Plan: -the patient has dialysis on Sunday and Sunday however she did not go Sunday. She denies going today. -nephrology had been consulted from ER and notified the mandate retail service merchandiser that she does not want dialysis today. -the patient is not always compliant with dialysis. She has a tunneled catheter to the right upper chest. -her BUN is 40 creatinine 3.67 with a GFR of 12. She is at her baseline. -monitor her electrolytes closely. (3) UTI (urinary tract infection): Code(s): N39.0 - Urinary tract infection, site not specified Status: Suspected Assessment and Plan: -the patient is already on treatment for pneumonia which includes Rocephin. -blood in urine cultures are pending. -the patient is afebrile and no leukocytosis is noted. (4) Pneumonia: Qualifiers: Laterality: bilateral Lung location: unspecified part of lung Pneumonia type: due to unspecified organism Qualified Code(s): J18.9 - Pneumonia, unspecified organism Code(s): J18.9 - Pneumonia, unspecified organism Status: Acute Assessment and Plan: -the patient has been started on azithromycin and Rocephin. -the patient has no leukocytosis and is afebrile. -sputum and blood cultures are pending. (5) Essential hypertension: Code(s): I10 - Essential (primary) hypertension Status: Chronic Assessment and Plan: -the patient is NPO at this time. -her nifedipine and losartan are on hold at this time. -hydralazine IV p.r.n. with parameters. Subjective Date/time seen: 05/31/25 11:12 Interval history: Patient was seen during the morning rounds today. NG tube in place. No new overnight complaints No shortness of breath or chest pain. Review of Systems Constitutional: Constitutional: Reports as per HPI and Reports no additional constitutional complaints Eyes: Eyes: Reports as per HPI and Reports no additional eye complaints ENT: Reports system reviewed and no additional complaints, except as documented and Reports Normal hearing present Cardiovascular: Cardiovascular: Reports no additional cardiovascular compl aints Respiratory: Respiratory: Reports as per HPI and Reports no additional respiratory complaints Gastrointestinal: Gastrointestinal: Reports as per HPI and Reports no additional gastrointestinal complaints Genitourinary: Genitourinary: Reports no additional female genitourinary complaints Musculoskeletal: Musculoskeletal: Reports no additional musculoskeletal complaints Integumentary/Breasts: Skin/Breast: Reports system reviewed and no additional complaints, except as docu Neurologic: Reports system reviewed and no additional complaints, except as documented and Reports Normal hearing present Psychiatric: Psychiatric: Reports no additional psychiatric complaints and Reports as per HPI Hematologic/Lymphatic: Hematologic/Lymphatic: Reports no additional hematologic/lymphatic complaints Allergic/Immunologic: Allergic/Immunologic: Reports no additional allergic/immunologic complaints Exam Const: General: cooperative, healthy appearing, no acute distress, well developed, awake, Physically active and average body habitus Nutritional Appearance: average body habitus Orientation/consciousness: oriented to person, oriented to place, oriented to time and patient oriented x3 Limitations: no limitations HENMT: Head: normal to inspection and No palpable skull fracture present Ears: hearing grossly normal bilaterally Other: NG tube intact her right nares Eyes: General: appearance normal, both eyes and all related structures Alignment and Position: alignment normal Periorbital: periorbital findings normal Eyelids: eyelids normal Conjunctivae: conjunctivae normal Sclera: sclerae normal Cornea: corneas normal Pupils: Equal, round and reactive pupils present and Pupil accommodation reflex normal EOM: EOMs intact bilaterally Neck: Neck: normal visual inspection, full ROM, no lymphadenopathy, trachea midline and supple Thyroid: thyroid normal Chest: Chest palpation & inspection: normal inspection of the chest Other: Dialysis catheter intact to right upper chest Resp: Effort & Inspection: normal respiratory effort Auscultation: clear to auscultation bilaterally Cardio: Palpation: normal PMI Rate: bradycardic Rhythm: regular rhythm Heart sounds: S1 normal heart sound present and S2 normal heart sound present Peripheral pulses: Peripheral pulses 2+ throughout GI: Inspection: normal to inspection Auscultation: High-pitched bowel sounds present Rectal Exam: deferred : General: Yes no CVA tenderness Back/Spine/Pelvis: Back: no CVA tenderness Cervical Spine: cervical ROM normal Thoracic/Lumbar Spine: thoracic and lumbar spine normal to inspection Pelvis: no pain with anterior-posterior compression Skin: General skin exam: normal color Lesions: no lesions Rashes: no rashes Trauma: no lacerations or abrasions Wounds: no wounds Hair: normal Nails: normal Neuro: General: oriented to person, oriented to place, oriented to time and patient oriented x3 Cranial nerves: Yes Equal, round and reactive pupils present and Yes Normal hearing present Cognition (Neuro): normal cognition Speech: normal speech Gait exam (Neuro): Normal gait present Motor exam (neuro): 5/5 motor strength present throughout Sensory Exam: normal sensation Extrem: General: normal to inspection Right upper extremity: normal to inspection and shoulder/upper arm Left upper extremity: normal to inspection and shoulder/upper arm Right lower extremity: normal to inspection Left lower extremity: normal to inspection Psych: Appearance: grossly normal Mental Status: mental status grossly normal Speech and movement: Normal speech and movement present Affect: normal affect Attitude: cooperative Thought process: Normal thought process present Insight: Good insight present (Psych) Judgement: Good judgement present (Psych) Objective Data Vital Signs Vital Signs: Vital Signs - 24 hr 05/30/25 14:00 05/30/25 15:54 05/30/25 16:00 Temperature Pulse Rate 70 61 Respiratory Rate Blood Pressure Pulse Oximetry 99 Oxygen Delivery Room Air 05/30/25 16:00 05/30/25 18:00 05/30/25 20:00 Temperature 36.6 C 36.5 C Pulse Rate 61 60 59 L Respiratory Rate 16 15 Blood Pressure 180/56 H 189/57 H Pulse Oximetry 99 98 Oxygen Delivery 05/30/25 20:00 05/30/25 20:00 05/30/25 22:00 Temperature Pulse Rate 62 53 L Respiratory Rate Blood Pressure Pulse Oximetry Oxygen Delivery Room Air 05/30/25 23:57 05/31/25 00:00 05/31/25 00:00 Temperature 36.3 C L Pulse Rate 60 55 L Respiratory Rate 14 Blood Pressure 166/53 H Pulse Oximetry 98 Oxygen Delivery Room Air 05/31/25 02:00 05/31/25 04:00 05/31/25 04:00 Temperature 36.4 C Pulse Rate 54 L 56 L 57 L Respiratory Rate 14 Blood Pressure 219/53 H Pulse Oximetry 98 Oxygen Delivery 05/31/25 04:00 05/31/25 06:00 05/31/25 07:57 Temperature 36.4 C Pulse Rate 54 L 57 L Respiratory Rate 18 Blood Pressure 227/64 H Pulse Oximetry 99 Oxygen Delivery Room Air 05/31/25 08:00 05/31/25 08:00 05/31/25 10:00 Temperature Pulse Rate 62 58 L Respiratory Rate Blood Pressure Pulse Oximetry 99 Oxygen Delivery Room Air Intake/Output Intake/Output: Intake & Output 05/28/25 05/29/25 05/30/25 05/31/25 23:59 23:59 23:59 22:59 Intake Total 800 300 0 Output Total 300 0 Balance 800 0 0 Meds/Results Medications: Active Medications Generic Name Dose Route Start Last Admin Trade Name Freq PRN Reason Stop Dose Admin Albuterol 2.5 mg 05/30/25 06:49 Albuterol Sulfate Neb 2.5 Mg/3 Ml Inh INHALATION Q4HRT PRN Shortness Of Breath Clonidine HCl 1 patch 05/31/25 09:00 05/31/25 08:23 Clonidine 0.2 Mg/24 Hr Patch TRANSDERM 1 patch WEEKLY ANDRÉS Administration Dextrose 12.5 gm 05/29/25 20:44 05/31/25 05:24 Dextrose 50% 25 Gm/50 Ml Syringe IV PUSH 12.5 gm PRN PRN Administration Hypoglycemia Protocol Glucagon 1 mg 05/29/25 20:44 05/30/25 07:09 Glucagon For Inj 1 Mg Vial IM 1 mg PRN PRN Administration Hypoglycemia Protocol Glucose 15 gm 05/29/25 20:44 Glucose Oral Gel 15 Gm Of Glucse In 37.5 Gm Tube PO PRN PRN Hypoglycemia Protocol Hydralazine HCl 10 mg 05/30/25 06:48 05/31/25 08:24 Hydralazine Hcl 20 Mg/Ml Vial IV PUSH 10 mg Q8H PRN Administration Blood Pressure - High Hydromorphone HCl 0.5 mg 05/30/25 06:43 Hydromorphone Hcl Inj (*Crx) 1 Mg/Ml Syr IV PUSH Q3H PRN Pain Rated 7-10 Ceftriaxone Sodium 1 gm/ 50 mls @ 100 mls/hr 05/30/25 21:00 05/30/25 21:14 Sodium Chloride IVPB Infused Q24H ANDRÉS Infusion Azithromycin 500 mg/ Sodium 250 mls @ 250 mls/hr 05/30/25 22:00 05/30/25 23:15 Chloride IVPB 06/02/25 22:59 Infused Q24H ANDRÉS Infusion Dextrose 1,000 mls @ 100 mls/hr 05/29/25 20:44 Dextrose 5% 1,000 Ml IVPB PRN PRN Hypoglycemia Protocol Dextrose 1,000 mls @ 75 mls/hr 05/31/25 09:15 05/31/25 11:09 Dextrose 5% 1,000 Ml IV CONT 75 mls/hr .[id number] ANDRÉS Administration Ondansetron HCl 4 mg 05/29/25 20:44 05/30/25 10:08 Ondansetron Inj 4 Mg/2 Ml Vial IV PUSH 4 mg Q4H PRN Administration Nausea Phenol 1 spray 05/30/25 06:22 05/30/25 18:57 Phenol/Sod Pheno [place]man (*Bkc) MUCOUS MEM 1 spray PRN PRN Administration Sore Throat Radiology Results: ITS Impressions Chest X-Ray 05/29/25 17:26 Impression: Bilateral pneumonia Abdomen/Pelvis CT 05/29/25 19:10 IMPRESSION: Right double-J ureteral stent is noted. There is mild right hydronephrosis. The left kidneys atrophy. There is fluid filled distended small bowel loops with multiple air-fluid levels may represent partial to early small bowel obstruction. All CT scans at this facility are performed using low dose modulation techniques as appropriate to perform exam including the following: automated exposure control; use of iterative reconstruction technique; adjustment of the mA and/or kV according to patient size (this includes techniques or standardized protocols for targeted exams where dose is matched to indication/reason for exam). Abdomen X-Ray 05/31/25 09:20 IMPRESSION: 1. No significant change or acute abnormality given supine technique. Labs Labs: Laboratory Results - last 24 hr 05/31/25 05/31/25 05/31/25 04:14 05:01 05:47 WBC 6.4 RBC 4.27 Hgb 11.6 L Hct 38.1 MCV 89.2 MCH 27.2 MCHC 30.4 L RDW 16.4 H Plt Count 187 MPV 10.1 Sodium 136 L Potassium 3.6 Chloride 98 Carbon Dioxide 25 Anion Gap 13 H BUN 41 H Creatinine 3.84 H Estim Creat Clear Calc 8 Estimated GFR 12 L Glucose 49 L* POC Capillary Glucose 50 L* 112 H Calcium 10.1 Total Bilirubin 0.5 AST 27 ALT 9 Alkaline Phosphatase 59 Total Protein 5.8 L Albumin 3.3 L 05/31/25 06:51 WBC RBC Hgb Hct MCV MCH MCHC RDW Plt Count MPV Sodium Potassium Chloride Carbon Dioxide Anion Gap BUN Creatinine Estim Creat Clear Calc Estimated GFR Glucose POC Capillary Glucose 76 Calcium Total Bilirubin AST ALT Alkaline Phosphatase Total Protein Albumin
--- NOTE | 2025-05-31 13:32 | PM.PNGS ---
Progress Note: A&P Assessment and Plan (1) Small bowel obstruction: Code(s): K56.609 - Unspecified intestinal obstruction, unspecified as to partial versus complete obstruction Status: Acute Assessment and Plan: Abdominal pain gone and passing flatus. Nasogastric tube in good position but plain films do not look improved. Continue bowel rest and NG suction with IV fluids. Will go ahead and restart her Klonopin and gabapentin. Will start trazodone p.r.n. for sleep. She can have ice chips as well as meds with sips. Repeat films, labs, clinical evaluation again in a.m.. Hopefully will resolve soon. (2) Protein-calorie malnutrition, moderate: Code(s): E44.0 - Moderate protein-calorie malnutrition Status: Acute Assessment and Plan: May need TPN if bowel function does not turn around soon. Continue to monitor. (3) Carotid stenosis, left: Code(s): I65.22 - Occlusion and stenosis of left carotid artery Status: Chronic Assessment and Plan: Repeat carotid duplex tomorrow. (4) End-stage renal disease on hemodialysis: Code(s): N18.6 - End stage renal disease; Z99.2 - Dependence on renal dialysis Status: Chronic (5) Pneumonia: Qualifiers: Laterality: bilateral Lung location: unspecified part of lung Pneumonia type: due to unspecified organism Qualified Code(s): J18.9 - Pneumonia, unspecified organism Code(s): J18.9 - Pneumonia, unspecified organism Status: Acute Assessment and Plan: On antibiotics. This was more of a chest x-ray finding than 1 with clinical symptoms. Subjective Subjective Date/Time Seen: 05/31/25 13:32 Patient reports: voiding w/o difficulty, flatus, no bowel movement, afebrile and other (Feels very tired, can sleep at night, no pain or nausea but multiple emotional complaints) Interval history: Wants to have her Klonopin and gabapentin if possible. Wants some ice chips. Would like a sleeping pill. Review of Systems Review of Systems: All systems reviewed & are unremarkable except as noted in HPI and below (HPI) Exam Const: General: cooperative, comfortable, awake and tired appearing Nutritional Appearance: thin GI: Inspection: non-distended, scaphoid, scar and no visible herniation GI Palp: Yes Firmness to palpation present (GI), No Tenderness to palpation present (GI), No Hernia present and Yes Palpable mass present Objective Data Vital Signs Vital Signs: Vital Signs - 24 hr 05/30/25 15:54 05/30/25 16:00 05/30/25 16:00 Temperature 36.6 C Pulse Rate 61 61 Respiratory Rate 16 Blood Pressure 180/56 H Pulse Oximetry 99 99 Oxygen Delivery Room Air 05/30/25 18:00 05/30/25 20:00 05/30/25 20:00 Temperature 36.5 C Pulse Rate 60 59 L Respiratory Rate 15 Blood Pressure 189/57 H Pulse Oximetry 98 Oxygen Delivery Room Air 05/30/25 20:00 05/30/25 22:00 05/30/25 23:57 Temperature 36.3 C L Pulse Rate 62 53 L 60 Respiratory Rate 14 Blood Pressure 166/53 H Pulse Oximetry 98 Oxygen Delivery 05/31/25 00:00 05/31/25 00:00 05/31/25 02:00 Temperature Pulse Rate 55 L 54 L Respiratory Rate Blood Pressure Pulse Oximetry Oxygen Delivery Room Air 05/31/25 04:00 05/31/25 04:00 05/31/25 04:00 Temperature 36.4 C Pulse Rate 56 L 57 L Respiratory Rate 14 Blood Pressure 219/53 H Pulse Oximetry 98 Oxygen Delivery Room Air 05/31/25 06:00 05/31/25 07:57 05/31/25 08:00 Temperature 36.4 C Pulse Rate 54 L 57 L Respiratory Rate 18 Blood Pressure 227/64 H Pulse Oximetry 99 99 Oxygen Delivery Room Air 05/31/25 08:00 05/31/25 10:00 Temperature Pulse Rate 62 58 L Respiratory Rate Blood Pressure Pulse Oximetry Oxygen Delivery Intake/Output Intake/Output: Intake & Output 05/28/25 05/29/25 05/30/25 05/31/25 23:59 23:59 23:59 22:59 Intake Total 800 300 0 Output Total 300 0 Balance 800 0 0 Meds/Results Medications: Active Medications Generic Name Dose Route Start Last Admin Trade Name Freq PRN Reason Stop Dose Admin Albuterol 2.5 mg 05/30/25 06:49 Albuterol Sulfate Neb 2.5 Mg/3 Ml Inh INHALATION Q4HRT PRN Shortness Of Breath Clonazepam 0.5 mg 05/31/25 13:27 Clonazepam (*Crx) 0.5 Mg Tablet PO BID PRN Anxiety Clonazepam 0.5 mg 05/31/25 13:31 Clonazepam (*Crx) 0.5 Mg Tablet PO 05/31/25 13:32 ONCE ONE Clonidine HCl 1 patch 05/31/25 09:00 05/31/25 08:23 Clonidine 0.2 Mg/24 Hr Patch TRANSDERM 1 patch WEEKLY ANDRÉS Administration Dextrose 12.5 gm 05/29/25 20:44 05/31/25 05:24 Dextrose 50% 25 Gm/50 Ml Syringe IV PUSH 12.5 gm PRN PRN Administration Hypoglycemia Protocol Gabapentin 300 mg 05/31/25 21:00 Gabapentin 300 Mg Capsule PO HS ANDRÉS Glucagon 1 mg 05/29/25 20:44 05/30/25 07:09 Glucagon For Inj 1 Mg Vial IM 1 mg PRN PRN Administration Hypoglycemia Protocol Glucose 15 gm 05/29/25 20:44 Glucose Oral Gel 15 Gm Of Glucse In 37.5 Gm Tube PO PRN PRN Hypoglycemia Protocol Hydralazine HCl 10 mg 05/30/25 06:48 05/31/25 08:24 Hydralazine Hcl 20 Mg/Ml Vial IV PUSH 10 mg Q8H PRN Administration Blood Pressure - High Hydromorphone HCl 0.5 mg 05/30/25 06:43 Hydromorphone Hcl Inj (*Crx) 1 Mg/Ml Syr IV PUSH Q3H PRN Pain Rated 7-10 Ceftriaxone Sodium 1 gm/ 50 mls @ 100 mls/hr 05/30/25 21:00 05/30/25 21:14 Sodium Chloride IVPB Infused Q24H ANDRÉS Infusion Azithromycin 500 mg/ Sodium 250 mls @ 250 mls/hr 05/30/25 22:00 05/30/25 23:15 Chloride IVPB 06/02/25 22:59 Infused Q24H ANDRÉS Infusion Dextrose 1,000 mls @ 100 mls/hr 05/29/25 20:44 Dextrose 5% 1,000 Ml IVPB PRN PRN Hypoglycemia Protocol Dextrose 1,000 mls @ 75 mls/hr 05/31/25 09:15 05/31/25 11:09 Dextrose 5% 1,000 Ml IV CONT 75 mls/hr .[id number] ANDRÉS Administration Ondansetron HCl 4 mg 05/29/25 20:44 05/30/25 10:08 Ondansetron Inj 4 Mg/2 Ml Vial IV PUSH 4 mg Q4H PRN Administration Nausea Phenol 1 spray 05/30/25 06:22 05/30/25 18:57 Phenol/Sod Pheno [place] Black[place] (*Bkc) MUCOUS MEM 1 spray PRN PRN Administration Sore Throat Trazodone HCl 50 mg 05/31/25 13:29 Trazodone Hcl 50 Mg Tablet PO HS PRN Insomnia Radiology Results: ITS Impressions Chest X-Ray 05/29/25 17:26 Impression: Bilateral pneumonia Abdomen/Pelvis CT 05/29/25 19:10 IMPRESSION: Right double-J ureteral stent is noted. There is mild right hydronephrosis. The left kidneys atrophy. There is fluid filled distended small bowel loops with multiple air-fluid levels may represent partial to early small bowel obstruction. All CT scans at this facility are performed using low dose modulation techniques as appropriate to perform exam including the following: automated exposure control; use of iterative reconstruction technique; adjustment of the mA and/or kV according to patient size (this includes techniques or standardized protocols for targeted exams where dose is matched to indication/reason for exam). Abdomen X-Ray 05/31/25 09:20 IMPRESSION: 1. No significant change or acute abnormality given supine technique. Labs Labs: Laboratory Results - last 24 hr 05/31/25 05/31/25 05/31/25 04:14 05:01 05:47 WBC 6.4 RBC 4.27 Hgb 11.6 L Hct 38.1 MCV 89.2 MCH 27.2 MCHC 30.4 L RDW 16.4 H Plt Count 187 MPV 10.1 Sodium 136 L Potassium 3.6 Chloride 98 Carbon Dioxide 25 Anion Gap 13 H BUN 41 H Creatinine 3.84 H Estim Creat Clear Calc 8 Estimated GFR 12 L Glucose 49 L* POC Capillary Glucose 50 L* 112 H Calcium 10.1 Total Bilirubin 0.5 AST 27 ALT 9 Alkaline Phosphatase 59 Total Protein 5.8 L Albumin 3.3 L 05/31/25 06:51 WBC RBC Hgb Hct MCV MCH MCHC RDW Plt Count MPV Sodium Potassium Chloride Carbon Dioxide Anion Gap BUN Creatinine Estim Creat Clear Calc Estimated GFR Glucose POC Capillary Glucose 76 Calcium Total Bilirubin AST ALT Alkaline Phosphatase Total Protein Albumin Imaging Attestation: I personally reviewed and interpreted this imaging study as follows: (Plain film of the abdomen from this morning and yesterday) My impression: Dilated small bowel, nasogastric tube in good position, no significant change today from yesterday Radiologist's impression: FINDINGS: NG tube within gastric fundus. Air-fluid levels cannot be assessed on supine projection. Scattered small and large bowel gas. Right double-J ureteral stent. No acute bony abnormality.
[2025-05-31] MEDS: clonazePAM (*CRX) 0.5 MG TABLET PO ×2 (15:00→21:34)
[2025-05-31] MEDS: cefTRIAXone 1 GM in SODIUM CHLORIDE 0.9% IV 50 ML 100 ML IVPB (21:04)
[2025-05-31] MEDS: GABAPENTIN 300 MG CAPSULE PO (21:34)
[2025-05-31] MEDS: AZITHROMYCIN IV 500 MG in SODIUM CHLORIDE 0.9% IV 250 ML IVPB (22:53)
[2025-06-01] VITALS (17 sets, daily range): BP systolic 95–209; BP diastolic 47–80; PULSE 48–100; RESP 15–20; TEMP 35.9–37.8; O2SAT 96–100; BMI 18.3
[2025-06-01] MEDS: DEXTROSE 5% 1,000 ML 1,000 ML 75 ML IV CONT ×2 (00:28→13:21)
[2025-06-01 04:27] LABS: Hematocrit 34.3 % (37.0-47.0); Hemoglobin 10.7 g/dL (12.0-15.0); Mean Corpuscular HGB Conc 31.2 g/dl (32-36); Mean Corpuscular Hemoglobin 27.3 pg (26-34); Mean Corpuscular Volume 87.5 fl (80-100); Platelet Count Result 144 k/mm3 (150-375); Red Blood Count 3.92 M/mm3 (4.2-5.4); White Blood Count 5.2 K/mm3 (4.5-10.0)
[2025-06-01 04:38] LABS: INR 1.0; Prothrombin Time 12.8 Seconds (11.1-14.7)
[2025-06-01 04:39] LABS: Partial Thromboplastin Time 29.5 Seconds (22.3-36.8)
[2025-06-01 04:43] LABS: Alanine Aminotransferase 7 U/L (6-35); Albumin Level 2.7 g/dL (3.5-5.1); Alkaline Phosphatase 50 U/L (38-126); Anion Gap 3 mmol/L (4-12); Aspartate Amino Transferase 23 U/L (14-36); Bilirubin,Total 0.3 mg/dL (0.2-1.3); Blood Urea Nitrogen 37 mg/dL (7-17); Calcium 9.8 mg/dL (8.4-10.2); Carbon Dioxide 32 mmol/L (22-30); Chloride 95 mmol/L (98-107); Estimated CRCL calculation 10 ml/min; Estimated Glomerular Filt Rate 13; Glucose 106 mg/dL (65-110); Potassium 3.0 mmol/L (3.4-5.0); Sodium 130 mmol/L (137-145); Total Protein 5.2 g/dL (6.3-8.2)
--- NOTE | 2025-06-01 11:58 | P.PNIM_ITS ---
Progress Note: A&P Assessment and Plan (1) Small bowel obstruction: Code(s): K56.609 - Unspecified intestinal obstruction, unspecified as to partial versus complete obstruction Status: Acute (2) End-stage renal disease on hemodialysis: Code(s): N18.6 - End stage renal disease; Z99.2 - Dependence on renal dialysis Status: Chronic (3) UTI (urinary tract infection): Code(s): N39.0 - Urinary tract infection, site not specified Status: Suspected (4) Pneumonia: Qualifiers: Laterality: bilateral Lung location: unspecified part of lung Pneumonia type: due to unspecified organism Qualified Code(s): J18.9 - Pneumonia, unspecified organism Code(s): J18.9 - Pneumonia, unspecified organism Status: Acute (5) Essential hypertension: Code(s): I10 - Essential (primary) hypertension Status: Chronic Plan 70-year-old female with past medical history of hypertension, end-stage renal disease on dialysis presented with not feeling well, generalized weakness. Patient has history of multiple abdominal surgeries, small bowel obstruction. CT abdomen pelvis showed fluid filled distended small bowel loops with multiple air-fluid levels may represent partial to early small bowel obstruction. Chest x-ray was suggestive of bilateral pneumonia. 1. Small-bowel obstruction: NG tube was placed Surgery following Repeat x-ray abdomen done today is negative for obstruction Tolerating p.o. meds with sips Await further recommendations from surgery Supplement potassium Continue with ceftriaxone 2. Bilateral pneumonia: Continue with ceftriaxone, azithromycin 3. UTI ruled out, urine culture has been negative 4. End-stage renal disease on dialysis: Nephrology following Dialysis as per Renal Supplement potassium today 5. Hypertension: Resume home dose hydralazine, losartan, nifedipine Continue with clonidine patch 6. Recent hypoglycemia: Due to NPO status Continue with D5 until NPO Blood glucose check q.6 hours for now 7. Code status: Full 8. DVT prophylaxis: Heparin subQ 9. Disposition: Pending improvement, can be transferred out of IMU Time Spent With Patient Time: 39 mins Subjective Date/time seen: 06/01/25 11:58 Interval history: Denies any abdominal pain, nausea Blood pressure elevated Review of Systems Review of Systems: All systems reviewed & are unremarkable except as noted in HPI and below Exam Const: General: cooperative and no acute distress Orientation/consciousness: oriented to person, oriented to place, oriented to time and patient oriented x3 HENMT: Head: normal to inspection Other: NG tube intact her right nares Eyes: Conjunctivae: conjunctivae normal Sclera: sclerae normal Neck: Neck: normal visual inspection and supple Chest: Chest palpation & inspection: normal inspection of the chest Other: Dialysis catheter intact to right upper chest Resp: Effort & Inspection: normal respiratory effort Auscultation: clear to auscultation bilaterally Cardio: Rate: bradycardic Rhythm: regular rhythm GI: Inspection: normal to inspection Auscultation: High-pitched bowel sounds present Back/Spine/Pelvis: Back: no CVA tenderness Skin: General skin exam: normal color Lesions: no lesions Extrem: General: normal to inspection Psych: Appearance: grossly normal Mental Status: mental status grossly normal Objective Data Vital Signs Vital Signs: Vital Signs - 24 hr 05/31/25 12:00 05/31/25 12:00 05/31/25 14:00 Temperature Pulse Rate 63 55 L Respiratory Rate Blood Pressure Pulse Oximetry 97 Oxygen Delivery Room Air 05/31/25 15:52 05/31/25 16:00 05/31/25 16:00 Temperature 97.2 F L Pulse Rate 59 L 57 L Respiratory Rate 16 Blood Pressure 234/65 H Pulse Oximetry 97 97 Oxygen Delivery Room Air 05/31/25 18:00 05/31/25 19:30 05/31/25 20:00 Temperature 97.5 F L Pulse Rate 59 L 56 L Respiratory Rate 15 Blood Pressure 221/47 H Pulse Oximetry 99 Oxygen Delivery Room Air 05/31/25 20:00 05/31/25 22:00 06/01/25 00:00 Temperature 97.5 F L Pulse Rate 55 L 55 L 53 L Respiratory Rate 16 Blood Pressure 207/53 H Pulse Oximetry 98 Oxygen Delivery 06/01/25 00:00 06/01/25 00:00 06/01/25 02:00 Temperature Pulse Rate 56 L 51 L Respiratory Rate Blood Pressure Pulse Oximetry Oxygen Delivery Room Air 06/01/25 04:00 06/01/25 04:00 06/01/25 04:00 Temperature 97.4 F L Pulse Rate 53 L 57 L Respiratory Rate 15 Blood Pressure 203/47 H Pulse Oximetry 98 Oxygen Delivery Room Air 06/01/25 06:00 06/01/25 07:52 06/01/25 08:00 Temperature 97.4 F L Pulse Rate 48 L 52 L Respiratory Rate 18 Blood Pressure 195/50 H Pulse Oximetry 98 98 Oxygen Delivery Room Air 06/01/25 09:05 Temperature Pulse Rate Respiratory Rate Blood Pressure Pulse Oximetry Oxygen Delivery Room Air Intake/Output Intake/Output: Intake & Output 05/29/25 05/30/25 05/31/25 06/01/25 23:59 23:59 22:59 23:59 Intake Total 800 648 746 3885.8 Output Total 513 815 5851 Balance 800 -50 -250 -5691.2 Meds/Results Medications: Active Medications Generic Name Dose Route Start Last Admin Trade Name Freq PRN Reason Stop Dose Admin Albuterol 2.5 mg 05/30/25 06:49 Albuterol Sulfate Neb 2.5 Mg/3 Ml Inh INHALATION Q4HRT PRN Shortness Of Breath Clonazepam 0.5 mg 05/31/25 13:27 05/31/25 21:34 Clonazepam (*Crx) 0.5 Mg Tablet PO 0.5 mg BID PRN Administration Anxiety Clonidine HCl 1 patch 05/31/25 09:00 05/31/25 08:23 Clonidine 0.2 Mg/24 Hr Patch TRANSDERM 1 patch WEEKLY ANDRÉS Administration Dextrose 12.5 gm 05/29/25 20:44 05/31/25 05:24 Dextrose 50% 25 Gm/50 Ml Syringe IV PUSH 12.5 gm PRN PRN Administration Hypoglycemia Protocol Epoetin Erasmo-epbx 4,000 units 06/01/25 17:57 Epoetin Erasmo-Epbx 4,000 Units/Ml Vial IV PUSH 06/01/25 17:58 ONCE ONE Gabapentin 300 mg 05/31/25 21:00 05/31/25 21:34 Gabapentin 300 Mg Capsule PO 300 mg HS ANDRÉS Administration Glucagon 1 mg 05/29/25 20:44 05/30/25 07:09 Glucagon For Inj 1 Mg Vial IM 1 mg PRN PRN Administration Hypoglycemia Protocol Glucose 15 gm 05/29/25 20:44 Glucose Oral Gel 15 Gm Of Glucse In 37.5 Gm Tube PO PRN PRN Hypoglycemia Protocol Hydralazine HCl 75 mg 06/01/25 09:00 06/01/25 09:42 Hydralazine Hcl 25 Mg Tablet PO 75 mg TID ANDRÉS Administration Hydromorphone HCl 0.5 mg 05/30/25 06:43 Hydromorphone Hcl Inj (*Crx) 1 Mg/Ml Syr IV PUSH Q3H PRN Pain Rated 7-10 Ceftriaxone Sodium 1 gm/ 50 mls @ 100 mls/hr 05/30/25 21:00 05/31/25 21:35 Sodium Chloride IVPB Infused Q24H ANDRÉS Infusion Azithromycin 500 mg/ Sodium 250 mls @ 250 mls/hr 05/30/25 22:00 05/31/25 23:55 Chloride IVPB 06/02/25 22:59 Infused Q24H ANDRÉS Infusion Dextrose 1,000 mls @ 100 mls/hr 05/29/25 20:44 Dextrose 5% 1,000 Ml IVPB PRN PRN Hypoglycemia Protocol Dextrose 1,000 mls @ 75 mls/hr 05/31/25 09:15 06/01/25 00:28 Dextrose 5% 1,000 Ml IV CONT 75 mls/hr .[id number] ANDRÉS Administration Albumin Human 50 mls @ 999 mls/hr 05/31/25 15:12 Albutein IVPB 06/30/25 15:11 Q10M PRN HYPOTENSION Potassium Chloride 40 meq/ 520 mls @ 130 mls/hr 06/01/25 10:15 Sodium Chloride IVPB 06/01/25 14:14 ONCE ONE Losartan Potassium 50 mg 06/01/25 09:00 Losartan Potassium 25 Mg Tablet PO DAILY [facility] Miscellaneous Information 1 each 06/01/25 00:01 Losartan Ordered Daily. Notes On Home Meds Looks Like Does Not Take On Sunday And Sunday? XX 07/01/25 00:00 CLARIFY ANDRÉS Nifedipine 60 mg 06/01/25 21:00 Nifedipine 30 Mg Tab.Er.24 PO HS ANDRÉS Ondansetron HCl 4 mg 05/29/25 20:44 05/30/25 10:08 Ondansetron Inj 4 Mg/2 Ml Vial IV PUSH 4 mg Q4H PRN Administration Nausea Phenol 1 spray 05/30/25 06:22 05/30/25 18:57 Phenol/Sod Pheno [place] (*Bkc) MUCOUS MEM 1 spray PRN PRN Administration Sore Throat Trazodone HCl 50 mg 05/31/25 13:29 Trazodone Hcl 50 Mg Tablet PO HS PRN Insomnia Radiology Results: ITS Impressions Chest X-Ray 05/29/25 17:26 Impression: Bilateral pneumonia Abdomen/Pelvis CT 05/29/25 19:10 IMPRESSION: Right double-J ureteral stent is noted. There is mild right hydronephrosis. The left kidneys atrophy. There is fluid filled distended small bowel loops with multiple air-fluid levels may represent partial to early small bowel obstruction. All CT scans at this facility are performed using low dose modulation techniques as appropriate to perform exam including the following: automated exposure control; use of iterative reconstruction technique; adjustment of the mA and/or kV according to patient size (this includes techniques or standardized protocols for targeted exams where dose is matched to indication/reason for exam). Abdomen X-Ray 06/01/25 09:35 IMPRESSION: No positive evidence for obstruction. Similar to the prior study. Labs Labs: Laboratory Results - last 24 hr 05/31/25 05/31/25 06/01/25 18:10 19:34 00:21 WBC RBC Hgb Hct MCV MCH MCHC RDW Plt Count MPV PT INR APTT Sodium Potassium Chloride Carbon Dioxide Anion Gap BUN Creatinine Estim Creat Clear Calc Estimated GFR Glucose POC Capillary Glucose 94 104 106 H Calcium Total Bilirubin AST ALT Alkaline Phosphatase Total Protein Albumin Legionella Source Legionella Culture Legionella Cult Status 06/01/25 06/01/25 06/01/25 03:45 04:41 05:53 WBC 5.2 RBC 3.92 L Hgb 10.7 L Hct 34.3 L MCV 87.5 MCH 27.3 MCHC 31.2 L RDW 15.9 H Plt Count 144 L MPV 10.5 H PT 12.8 INR 1.0 APTT 29.5 Sodium 130 L Potassium 3.0 L Chloride 95 L Carbon Dioxide 32 H Anion Gap 3 L BUN 37 H Creatinine 3.39 H Estim Creat Clear Calc 10 Estimated GFR 13 L Glucose 106 POC Capillary Glucose 112 H Calcium 9.8 Total Bilirubin 0.3 AST 23 ALT 7 Alkaline Phosphatase 50 Total Protein 5.2 L Albumin 2.7 L Legionella Source Cancelled Legionella Culture Cancelled Legionella Cult Status Cancelled Quality VTE Prophylaxis VTE prophylaxis: pharmacologic ordered
--- NOTE | 2025-06-01 12:55 | PCOTNOTE ---
Attempted to see pt twice today. Pt at a procedure both times and then has dialysis scheduled so will follow up with pt tomorrow as able.
[2025-06-01] MEDS: ONDANSETRON INJ 4 MG/2 ML VIAL IV PUSH ×3 (13:37→22:18)
--- NOTE | 2025-06-01 14:00 | PC.NURSE ---
To dialysis via stretcher.
--- NOTE | 2025-06-01 14:43 | P.PNNP_ITS ---
Progress Note: A&P Assessment and Plan (1) End stage renal disease: Code(s): N18.6 - End stage renal disease Status: Chronic Assessment and Plan: * unable to have dialysis treatment today (see #3) * normally does HD on Mondays and Fridays * will re-attempt but will likely need a new dialysis catheter * follow electrolytes, volume status, and clearance (2) Small bowel obstruction: Code(s): K56.609 - Unspecified intestinal obstruction, unspecified as to partial versus complete obstruction Status: Acute Assessment and Plan: * admission CT scan of A/P with evidence of early/partial small bowel obstruction * also with history of nausea +vomiting and constipation for the last few days prior to admission * NG tube in place for decompression * serial abdominal exams and imaging * follow-up on small bowel series * General Surgery following (3) Mechanical complication of central venous catheter (CVC): Code(s): T82.594A - Other mechanical complication of infusion catheter, initial encounter Status: Acute Assessment and Plan: * current tunneled HD catheter dysfunction noted with attempted dialysis treatment today * she has had numerous HD catheter placements/exchanges since starting dialysis * apparently, her significant vascular disease complicates this ssie * will attempt HD again tomorrow but suspect will need a new dialysis catheter (4) Pneumonia: Qualifiers: Laterality: bilateral Lung location: unspecified part of lung P neumonia type: due to unspecified organism Qualified Code(s): J18.9 - Pneumonia, unspecified organism Code(s): J18.9 - Pneumonia, unspecified organism Status: Acute Assessment and Plan: * as suggested by admission CXR * however, normal WBC, afebrile, and no respiratory symptoms * follow culture data * on antibiotcs (5) UTI (urinary tract infection): Code(s): N39.0 - Urinary tract infection, site not specified Status: Suspected Assessment and Plan: * admission UA suggestive * follow-up on urine culture -- negative (6) Essential hypertension: Code(s): I10 - Essential (primary) hypertension Status: Chronic Assessment and Plan: * noted fluctuations since admission * suspect pain issues playing a role along with inability to take po BP medications * PRN IV medications (i.e. hydralazine or labetalol) * resume home oral BP medications when able * follow trend of hemodynamics (7) Anemia: Code(s): D64.9 - Anemia, unspecified Status: Chronic Assessment and Plan: * due to ESRD * JESSY with dialysis * follow trend of H/H (8) Anxiety: Code(s): F41.9 - Anxiety disorder, unspecified Status: Chronic Assessment and Plan: * resumed on klonopin and gabapentin * continue supportive therapy Will continue to follow. L Subjective Date/time seen: 06/01/25 14:43 Interval history: Follow-up for end stage renal disease on hemodialysis. Unable to receive dialysis today as her HD catheter was non-functional -- does not appear to be an issue with clotting but rather a positioning issue; the patient states her outpatient dialysis unit has been having issues with her catheter as well; no abdominal tenderness or nausea noted at his time. Exam 2 Narrative: General: elderly and thin/frail appearing female in NAD Heart: normal S1 and S2; no rub Lungs: clear to auscultation Abdomen: soft, nontender, nondistended, hypoactive bowel sounds Extremities: no cyanosis or clubbing; no edema Skin: warm and intact Objective Data Vital Signs Vital Signs: Vital Signs Temp Pulse Resp BP Pulse Ox O2 Del Method 06/01/25 14:35 97.5 F L 77 16 187/78 H 99 06/01/25 14:01 71 196/74 H 06/01/25 13:50 97.5 F L 73 16 209/80 H 100 06/01/25 13:20 97.5 F L 73 20 195/68 H 99 06/01/25 12:00 60 06/01/25 10:00 55 L 06/01/25 09:05 Room Air 06/01/25 08:00 53 L 06/01/25 08:00 98 Room Air 06/01/25 07:52 97.4 F L 52 L 18 195/50 H 98 06/01/25 06:00 48 L 06/01/25 04:00 57 L 06/01/25 04:00 Room Air 06/01/25 04:00 97.4 F L 53 L 15 203/47 H 98 06/01/25 02:00 51 L 06/01/25 00:00 56 L 06/01/25 00:00 Room Air 06/01/25 00:00 97.5 F L 53 L 16 207/53 H 98 05/31/25 22:00 55 L 05/31/25 20:00 55 L 05/31/25 20:00 Room Air 05/31/25 19:30 97.5 F L 56 L 15 221/47 H 99 Intake/Output Intake/Output: Intake & Output 05/29/25 05/30/25 05/31/25 06/01/25 23:59 23:59 22:59 23:59 Intake Total 800 231 768 9583.0 Output Total 410 319 1110 Balance 800 -50 -250 -4531.0 Meds/Results Medications: Active Medications Generic Name Dose Route Start Last Admin Trade Name Freq PRN Reason Stop Dose Admin Albuterol 2.5 mg 05/30/25 06:49 Albuterol Sulfate Neb 2.5 Mg/3 Ml Inh INHALATION Q4HRT PRN Shortness Of Breath Clonazepam 0.5 mg 05/31/25 13:27 05/31/25 21:34 Clonazepam (*Crx) 0.5 Mg Tablet PO 0.5 mg BID PRN Administration Anxiety Clonidine HCl 1 patch 05/31/25 09:00 05/31/25 08:23 Clonidine 0.2 Mg/24 Hr Patch TRANSDERM 1 patch WEEKLY ANDRÉS Administration Dextrose 12.5 gm 05/29/25 20:44 05/31/25 05:24 Dextrose 50% 25 Gm/50 Ml Syringe IV PUSH 12.5 gm PRN PRN Administration Hypoglycemia Protocol Epoetin Erasmo-epbx 4,000 units 06/01/25 17:57 06/01/25 17:11 Epoetin Erasmo-Epbx 4,000 Units/Ml Vial IV PUSH 06/01/25 17:58 Not Given ONCE ONE Gabapentin 300 mg 05/31/25 21:00 05/31/25 21:34 Gabapentin 300 Mg Capsule PO 300 mg HS ANDRÉS Administration Glucagon 1 mg 05/29/25 20:44 05/30/25 07:09 Glucagon For Inj 1 Mg Vial IM 1 mg PRN PRN Administration Hypoglycemia Protocol Glucose 15 gm 05/29/25 20:44 Glucose Oral Gel 15 Gm Of Glucse In 37.5 Gm Tube PO PRN PRN Hypoglycemia Protocol Heparin Sodium (Porcine) 5,000 units 06/01/25 14:00 06/01/25 15:29 Heparin Sodium 5,000 Units/Ml Vial SUB-Q 5,000 units Q8HR ANDRÉS Administration Hydralazine HCl 75 mg 06/01/25 09:00 06/01/25 16:46 Hydralazine Hcl 25 Mg Tablet PO 75 mg TID ANDRÉS Administration Hydromorphone HCl 0.5 mg 05/30/25 06:43 Hydromorphone Hcl Inj (*Crx) 1 Mg/Ml Syr IV PUSH Q3H PRN Pain Rated 7-10 Ceftriaxone Sodium 1 gm/ 50 mls @ 100 mls/hr 05/30/25 21:00 05/31/25 21:35 Sodium Chloride IVPB Infused Q24H ANDRÉS Infusion Azithromycin 500 mg/ Sodium 250 mls @ 250 mls/hr 05/30/25 22:00 05/31/25 23:55 Chloride IVPB 06/02/25 22:59 Infused Q24H ANDRÉS Infusion Dextrose 1,000 mls @ 100 mls/hr 05/29/25 20:44 Dextrose 5% 1,000 Ml IVPB PRN PRN Hypoglycemia Protocol Dextrose 1,000 mls @ 75 mls/hr 05/31/25 09:15 06/01/25 13:21 Dextrose 5% 1,000 Ml IV CONT 75 mls/hr .[id number] ANDRÉS Administration Albumin Human 50 mls @ 999 mls/hr 05/31/25 15:12 Albutein IVPB 06/30/25 15:11 Q10M PRN HYPOTENSION Potassium Chloride 40 meq/ 520 mls @ 130 mls/hr 06/01/25 15:15 06/01/25 15:28 Sodium Chloride IVPB 06/01/25 19:14 130 mls/hr ONCE ONE Administration Losartan Potassium 50 mg 06/02/25 09:00 Losartan Potassium 25 Mg Tablet PO [email or web address] [facility] Nifedipine 60 mg 06/01/25 21:00 Nifedipine 30 Mg Tab.Er.24 PO HS [facility] Ondansetron HCl 4 mg 05/29/25 20:44 06/01/25 13:37 Ondansetron Inj 4 Mg/2 Ml Vial IV PUSH 4 mg Q4H PRN Administration Nausea Phenol 1 spray 05/30/25 06:22 05/30/25 18:57 Phenol/Sod Pheno [place] [facility] (*Bkc) MUCOUS MEM 1 spray PRN PRN Administration Sore Throat Trazodone HCl 50 mg 05/31/25 13:29 Trazodone Hcl 50 Mg Tablet PO HS PRN Insomnia Radiology Results: ITS Impressions Abdomen/Pelvis CT 05/29/25 19:10 IMPRESSION: Right double-J ureteral stent is noted. There is mild right hydronephrosis. The left kidneys atrophy. There is fluid filled distended small bowel loops with multiple air-fluid levels may represent partial to early small bowel obstruction. All CT scans at this facility are performed using low dose modulation techniques as appropriate to perform exam including the following: automated exposure control; use of iterative reconstruction technique; adjustment of the mA and/or kV according to patient size (this includes techniques or standardized protocols for targeted exams where dose is matched to indication/reason for exam). Abdomen X-Ray 06/01/25 09:35 IMPRESSION: No positive evidence for obstruction. Similar to the prior study. Labs Labs: Laboratory Tests 06/01/25 03:45 06/01/25 03:45 Calcium 9.8 Total Bilirubin 0.3 AST 23 ALT 7 Alkaline Phosphatase 50 Total Protein 5.2 L Albumin 2.7 L Microbiology 05/29/25 18:33 Blood Blood Culture - Preliminary 05/29/25 19:51 Blood Blood Culture - Preliminary 05/29/25 19:51 Unspecified Urine - Final
--- NOTE | 2025-06-01 15:26 | P.PNGS_ITS ---
Progress Note: A&P Assessment and Plan (1) Small bowel obstruction: Code(s): K56.609 - Unspecified intestinal obstruction, unspecified as to partial versus complete obstruction Status: Acute Assessment and Plan: * SBFT obtained today, but report not yet read by radiologist. Contrast appears to be in colon. Passing flatus, but no BM yet. Patient experiencing some nausea, but states that her medications can often cause her to feel nauseous. NG pulled. Will start on clear liquids. * Will repeat labs and exam in a.m. (2) End-stage renal disease on hemodialysis: Code(s): N18.6 - End stage renal disease; Z99.2 - Dependence on renal dialysis Status: Chronic Assessment and Plan: Patient was unable to receive dialysis today due to complications with the catheter clotting off. Awaiting embedded linux developer evaluation. (3) Protein-calorie malnutrition, moderate: Code(s): E44.0 - Moderate protein-calorie malnutrition Status: Acute Assessment and Plan: May need TPN if bowel function does not turn around soon. Continue to monitor. (4) Carotid stenosis, left: Code(s): I65.22 - Occlusion and stenosis of left carotid artery Status: Chronic Assessment and Plan: Repeat carotid duplex tomorrow. (5) Pneumonia: Qualifiers: Laterality: bilateral Lung location: unspecified part of lung Pneumonia type: due to unspecified organism Qualified Code(s): J18.9 - Pneumonia, unspecified organism Code(s): J18.9 - Pneumonia, unspecified organism Status: Acute Assessment and Plan: On antibiotics. This was more of a chest x-ray finding than 1 with clinical symptoms. Plan Discussed patient's case and plan of care with Dr. Gonzalez. Subjective Subjective Date/Time Seen: 06/01/25 15:26 Patient reports: flatus, no bowel movement, nausea and afebrile Interval history: Patient evaluated after SBFT. Feeling very nauseous, but states that she can often feel nauseated from her medications. No BM yet, but she is passing gas. Unable to receive dialysis today due to complications with the catheter. Exam GI: Inspection: non-distended GI Palp: Yes Firmness to palpation present (GI), No Tenderness to palpation present (GI), Yes Rigid due to palpation and No Hernia present Auscultation: normal bowel sounds Objective Data Vital Signs Vital Signs: Vital Signs - 24 hr 05/31/25 15:52 05/31/25 16:00 05/31/25 16:00 Temperature 97.2 F L Pulse Rate 59 L 57 L Respiratory Rate 16 Blood Pressure 234/65 H Pulse Oximetry 97 97 Oxygen Delivery Room Air 05/31/25 18:00 05/31/25 19:30 05/31/25 20:00 Temperature 97.5 F L Pulse Rate 59 L 56 L Respiratory Rate 15 Blood Pressure 221/47 H Pulse Oximetry 99 Oxygen Delivery Room Air 05/31/25 20:00 05/31/25 22:00 06/01/25 00:00 Temperature 97.5 F L Pulse Rate 55 L 55 L 53 L Respiratory Rate 16 Blood Pressure 207/53 H Pulse Oximetry 98 Oxygen Delivery 06/01/25 00:00 06/01/25 00:00 06/01/25 02:00 Temperature Pulse Rate 56 L 51 L Respiratory Rate Blood Pressure Pulse Oximetry Oxygen Delivery Room Air 06/01/25 04:00 06/01/25 04:00 06/01/25 04:00 Temperature 97.4 F L Pulse Rate 53 L 57 L Respiratory Rate 15 Blood Pressure 203/47 H Pulse Oximetry 98 Oxygen Delivery Room Air 06/01/25 06:00 06/01/25 07:52 06/01/25 08:00 Temperature 97.4 F L Pulse Rate 48 L 52 L Respiratory Rate 18 Blood Pressure 195/50 H Pulse Oximetry 98 98 Oxygen Delivery Room Air 06/01/25 08:00 06/01/25 09:05 06/01/25 10:00 Temperature Pulse Rate 53 L 55 L Respiratory Rate Blood Pressure Pulse Oximetry Oxygen Delivery Room Air 06/01/25 12:00 06/01/25 13:20 06/01/25 13:50 Temperature 97.5 F L 97.5 F L Pulse Rate 60 73 73 Respiratory Rate 20 16 Blood Pressure 195/68 H 209/80 H Pulse Oximetry 99 100 Oxygen Delivery 06/01/25 14:01 06/01/25 14:35 Temperature 97.5 F L Pulse Rate 71 77 Respiratory Rate 16 Blood Pressure 196/74 H 187/78 H Pulse Oximetry 99 Oxygen Delivery Intake/Output Intake/Output: Intake & Output 05/29/25 05/30/25 05/31/25 06/01/25 23:59 23:59 22:59 23:59 Intake Total 800 546 771 4822.0 Output Total 672 949 5239 Balance 800 -50 -250 -4725.0 Meds/Results Medications: Active Medications Generic Name Dose Route Start Last Admin Trade Name Sherrie PRN Reason Stop Dose Admin Albuterol 2.5 mg 05/30/25 06:49 Albuterol Sulfate Neb 2.5 Mg/3 Ml Inh INHALATION Q4HRT PRN Shortness Of Breath Clonazepam 0.5 mg 05/31/25 13:27 05/31/25 21:34 Clonazepam (*Crx) 0.5 Mg Tablet PO 0.5 mg BID PRN Administration Anxiety Clonidine HCl 1 patch 05/31/25 09:00 05/31/25 08:23 Clonidine 0.2 Mg/24 Hr Patch TRANSDERM 1 patch WEEKLY ANDRÉS Administration Dextrose 12.5 gm 05/29/25 20:44 05/31/25 05:24 Dextrose 50% 25 Gm/50 Ml Syringe IV PUSH 12.5 gm PRN PRN Administration Hypoglycemia Protocol Epoetin Erasmo-epbx 4,000 units 06/01/25 17:57 Epoetin Erasmo-Epbx 4,000 Units/Ml Vial IV PUSH 06/01/25 17:58 ONCE ONE Gabapentin 300 mg 05/31/25 21:00 05/31/25 21:34 Gabapentin 300 Mg Capsule PO 300 mg HS ANDRÉS Administration Glucagon 1 mg 05/29/25 20:44 05/30/25 07:09 Glucagon For Inj 1 Mg Vial IM 1 mg PRN PRN Administration Hypoglycemia Protocol Glucose 15 gm 05/29/25 20:44 Glucose Oral Gel 15 Gm Of Glucse In 37.5 Gm Tube PO PRN PRN Hypoglycemia Protocol Heparin Sodium (Porcine) 5,000 units 06/01/25 14:00 Heparin Sodium 5,000 Units/Ml Vial SUB-Q Q8HR ANDRÉS Hydralazine HCl 75 mg 06/01/25 09:00 06/01/25 13:34 Hydralazine Hcl 25 Mg Tablet PO 75 mg TID ANDRÉS Administration Hydromorphone HCl 0.5 mg 05/30/25 06:43 Hydromorphone Hcl Inj (*Crx) 1 Mg/Ml Syr IV PUSH Q3H PRN Pain Rated 7-10 Ceftriaxone Sodium 1 gm/ 50 mls @ 100 mls/hr 05/30/25 21:00 05/31/25 21:35 Sodium Chloride IVPB Infused Q24H ANDRÉS Infusion Azithromycin 500 mg/ Sodium 250 mls @ 250 mls/hr 05/30/25 22:00 05/31/25 23:55 Chloride IVPB 06/02/25 22:59 Infused Q24H ANDRÉS Infusion Dextrose 1,000 mls @ 100 mls/hr 05/29/25 20:44 Dextrose 5% 1,000 Ml IVPB PRN PRN Hypoglycemia Protocol Dextrose 1,000 mls @ 75 mls/hr 05/31/25 09:15 06/01/25 13:21 Dextrose 5% 1,000 Ml IV CONT 75 mls/hr .[id number] ANDRÉS Administration Albumin Human 50 mls @ 999 mls/hr 05/31/25 15:12 Albutein IVPB 06/30/25 15:11 Q10M PRN HYPOTENSION Potassium Chloride 40 meq/ 520 mls @ 130 mls/hr 06/01/25 15:15 Sodium Chloride IVPB 06/01/25 19:14 ONCE ONE Losartan Potassium 50 mg 06/02/25 09:00 Losartan Potassium 25 Mg Tablet PO [id number] ANDRÉS Nifedipine 60 mg 06/01/25 21:00 Nifedipine 30 Mg Tab.Er.24 PO HS ANDRÉS Ondansetron HCl 4 mg 05/29/25 20:44 06/01/25 13:37 Ondansetron Inj 4 Mg/2 Ml Vial IV PUSH 4 mg Q4H PRN Administration Nausea Phenol 1 spray 05/30/25 06:22 05/30/25 18:57 Phenol/Sod Pheno [place] Blackman (*Bkc) MUCOUS MEM 1 spray PRN PRN Administration Sore Throat Trazodone HCl 50 mg 05/31/25 13:29 Trazodone Hcl 50 Mg Tablet PO HS PRN Insomnia Radiology Results: ITS Impressions Chest X-Ray 05/29/25 17:26 Impression: Bilateral pneumonia Abdomen/Pelvis CT 05/29/25 19:10 IMPRESSION: Right double-J ureteral stent is noted. There is mild right hydronephrosis. The left kidneys atrophy. There is fluid filled distended small bowel loops with multiple air-fluid levels may represent partial to early small bowel obstruction. All CT scans at this facility are performed using low dose modulation techniques as appropriate to perform exam including the following: automated exposure control; use of iterative reconstruction technique; adjustment of the mA and/or kV according to patient size (this includes techniques or standardized protocols for targeted exams where dose is matched to indication/reason for exam). Abdomen X-Ray 06/01/25 09:35 IMPRESSION: No positive evidence for obstruction. Similar to the prior study. Labs Labs: Laboratory Results - last 24 hr 05/31/25 05/31/25 06/01/25 18:10 19:34 00:21 WBC RBC Hgb Hct MCV MCH MCHC RDW Plt Count MPV PT INR APTT Sodium Potassium Chloride Carbon Dioxide Anion Gap BUN Creatinine Estim Creat Clear Calc Estimated GFR Glucose POC Capillary Glucose 94 104 106 H Calcium Total Bilirubin AST ALT Alkaline Phosphatase Total Protein Albumin Legionella Source Legionella Culture Legionella Cult Status 06/01/25 06/01/25 06/01/25 03:45 04:41 05:53 WBC 5.2 RBC 3.92 L Hgb 10.7 L Hct 34.3 L MCV 87.5 MCH 27.3 MCHC 31.2 L RDW 15.9 H Plt Count 144 L MPV 10.5 H PT 12.8 INR 1.0 APTT 29.5 Sodium 130 L Potassium 3.0 L Chloride 95 L Carbon Dioxide 32 H Anion Gap 3 L BUN 37 H Creatinine 3.39 H Estim Creat Clear Calc 10 Estimated GFR 13 L Glucose 106 POC Capillary Glucose 112 H Calcium 9.8 Total Bilirubin 0.3 AST 23 ALT 7 Alkaline Phosphatase 50 Total Protein 5.2 L Albumin 2.7 L Legionella Source Cancelled Legionella Culture Cancelled Legionella Cult Status Cancelled 06/01/25 13:16 WBC RBC Hgb Hct MCV MCH MCHC RDW Plt Count MPV PT INR APTT Sodium Potassium Chloride Carbon Dioxide Anion Gap BUN Creatinine Estim Creat Clear Calc Estimated GFR Glucose POC Capillary Glucose 130 H Calcium Total Bilirubin AST ALT Alkaline Phosphatase Total Protein Albumin Legionella Source Legionella Culture Legionella Cult Status
[2025-06-01] MEDS: POTASSIUM CHLORIDE INJ 40 MEQ in SODIUM CHLORIDE 0.9% IV 500 ML 130 MEQ IVPB (15:28)
--- NOTE | 2025-06-01 16:15 | PC.NURSE ---
received from [facility] / via bed.
--- NOTE | 2025-06-01 16:18 | PC.NURSE ---
This patient, Mary Ramirez, was transferred to [facility] on 06/01/25 at 1610. Personal belongings sent with patient. Report given to RUY Davila. Appropriate documentation sent with patient.
[2025-06-01] MEDS: cefTRIAXone 1 GM in SODIUM CHLORIDE 0.9% IV 50 ML 100 ML IVPB (22:06)
[2025-06-01] MEDS: GABAPENTIN 300 MG CAPSULE PO (22:07)
[2025-06-01] MEDS: AZITHROMYCIN IV 500 MG in SODIUM CHLORIDE 0.9% IV 250 ML IVPB (22:07)
[2025-06-01] MEDS: clonazePAM (*CRX) 0.5 MG TABLET PO (22:16)
[2025-06-02] VITALS (32 sets, daily range): BP systolic 86–177; BP diastolic 56–92; PULSE 64–92; RESP 12–20; TEMP 35.7–37; O2SAT 92–100
[2025-06-02 06:04] LABS: Hematocrit 43.5 % (37.0-47.0); Hemoglobin 13.7 g/dL (12.0-15.0); Immature Granulocyte Percent A 0.3 % (0-0.5); Lymphocytes Absolute Auto 0.64 K/mm3 (0.9-3.2); Mean Corpuscular HGB Conc 31.5 g/dl (32-36); Mean Corpuscular Hemoglobin 27.5 pg (26-34); Mean Corpuscular Volume 87.2 fl (80-100); Nucleated Red Blood Cells Absolute Auto 0.000 K/mm3 (0.0-0.012); Nucleated Red Blood Cells Perc 0.0 % (0.0-0.2); Platelet Count Result 154 k/mm3 (150-375); Red Blood Count 4.99 M/mm3 (4.2-5.4); White Blood Count 7.2 K/mm3 (4.5-10.0)
[2025-06-02] MEDS: DEXTROSE 5% 1,000 ML 1,000 ML 75 ML IV CONT (06:19)
[2025-06-02 06:55] LABS: Anion Gap 4 mmol/L (4-12); Blood Urea Nitrogen 30 mg/dL (7-17); Calcium 10.7 mg/dL (8.4-10.2); Carbon Dioxide 38 mmol/L (22-30); Chloride 87 mmol/L (98-107); Estimated CRCL calculation 10 ml/min; Estimated Glomerular Filt Rate 15; Glucose 144 mg/dL (65-110); Potassium 3.6 mmol/L (3.4-5.0); Sodium 129 mmol/L (137-145)
--- NOTE | 2025-06-02 08:22 | PCOTNOTE ---
Pt declines getting up for OT evaluation at this time stating she had diarrhea all night and then has a procedure this afternoon and would like to rest. Educated pt on importance of therapy but pt still declines.
[2025-06-02] MEDS: LOSARTAN POTASSIUM 25 MG TABLET 50 MG PO (08:34)
[2025-06-02 10:35] LABS: MRSA (PCR) NOT DETECTED (NOT DETECTE)
[2025-06-02] MEDS: ONDANSETRON INJ 4 MG/2 ML VIAL IV PUSH ×2 (10:35→15:55)
--- NOTE | 2025-06-02 12:13 | PC.NURSE ---
Pt left floor to go to surgery at 12:13.
--- NOTE | 2025-06-02 12:14 | PM.PNGS ---
Progress Note: A&P Assessment and Plan (1) Mechanical complication of central venous catheter (CVC): Code(s): T82.594A - Other mechanical complication of infusion catheter, initial encounter Status: Acute Assessment and Plan: Right subclavian CVC nonfunctional despite efforts yesterday by dialysis nursing to salvage. It is in the same, good, position on chest x-ray as it was early in her hospital stay. She has not dialyzed for 8 days now. Plan to proceed with placement of new tunneled central venous catheter for dialysis with removal of the dysfunctional current CVC. Patient understands and agrees to go ahead. (2) End-stage renal disease on hemodialysis: Code(s): N18.6 - End stage renal disease; Z99.2 - Dependence on renal dialysis Status: Chronic Assessment and Plan: See above (3) Partial small bowel obstruction: Code(s): K56.600 - Partial intestinal obstruction, unspecified as to cause Status: Acute Assessment and Plan: Persistent by imaging. Patient continues to have discomfort nausea and sometimes diarrhea. This is most likely due to adhesions from her several previous surgeries. Operation would generally be indicated for this but she is at high risk. Particularly pertinent at this time is that she has bilateral carotid stenosis with evidence that the left internal carotid has severe stenosis. We do not have vascular surgery available here to evaluate this. Should the patient need abdominal surgery, this would need to be at least evaluated if not fixed prior to any surgery. I talked to the hospitalist, Dr. Nur, about this. I recommend transfer to [facility] either tomorrow or the day after if possible. Hopefully we can get another dialysis catheter placed today and patient can proceed with dialysis. She has several physicians at [facility] and has already seen a surgeon there. She has been prescribed octreotide for a neuroendocrine tumor by her oncologist at [facility]. Continued care should be provided there particularly since we do not have vascular surgery here. 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 (5) Lung nodule: Code(s): R91.1 - Solitary pulmonary nodule Status: Chronic Assessment and Plan: Daughter confirms this was actually lung cancer and she follows with an oncologist at [facility] for this. Subjective Subjective Date/Time Seen: 06/02/25 12:14 Patient reports: still having pain (Still having generalized pain including the abdomen but not specifically abdominal pain), bowel movement (Six BMs after small-bowel series with water-soluble contrast yesterday. For last night and to again this morning.) and afebrile Interval history: Patient's daughter, Ruchi, was present in the patient's room this morning. The 3 of us talked for a while. Done it tells me that the patient has been troubled with abdominal pain and diarrhea for a long time and no physician has been able to help her with it. Patient has an oncologist at [facility] that manages her mesenteric tumor felt to be a neuroendocrine tumor. He prescribed octreotide. Ruchi tells me that sometimes when she gives this it does help. She usually gives it after her mom has had some diarrhea. Prior to coming to the hospital, it had not seem to be helping as much. Patient also has another oncologist at [facility] that treated her lung cancer. She received radiation therapy for this. She continues to follow up with both of these physicians. Patient has also seen a surgeon at [facility] but they could not recall the surgeon's name. It sounds as though the surgeon felt she was very high risk for surgery and it should be avoided if possible. Today patient is uncomfortable and, in her words, miserable, similar to previous days. She has lost weight from not being able to eat. She is upset that her dialysis catheter is not working. She usually dialyzes twice a week. She only dialyzed last Sunday, 8 days ago. Attempts were made to dialyze her yesterday but her tunnel catheter appears to be occluded. They could not get it to function despite injecting streptokinase as well as other attempts. Although there was concern that had pulled back, chest x-ray from yesterday show that it is in the exact same position it was on admission. I have her scheduled to proceed with placement of a new tunneled dialysis catheter this afternoon. We discussed this as well. She has had multiple different tunneled dialysis catheters, some on the left side, some on the right. Review of Systems Review of Systems: All systems reviewed & are unremarkable except as noted in HPI and below (HPI) Exam Const: General: cooperative, alert, awake, ill appearing, tired appearing and underweight Orientation/consciousness: No confusion GI: Inspection: non-distended, scaphoid and scar GI Palp: Yes Firmness to palpation present (GI), Yes Tenderness to palpation present (GI) (Diffusely tender, more in the RLQ where mesh hernia repair palpable.), No Guarding due to palpation present (GI), No Hernia present, No Ascites present and No Rebound tenderness present Auscultation: Hypoactive bowel sounds present Objective Data Vital Signs Vital Signs: Vital Signs - 24 hr 06/01/25 13:20 06/01/25 13:50 06/01/25 14:01 Temperature 36.4 C L 36.4 C L Pulse Rate 73 73 71 Respiratory Rate 20 16 Blood Pressure 195/68 H 209/80 H 196/74 H Pulse Oximetry 99 100 Oxygen Delivery 06/01/25 14:35 06/01/25 16:00 06/01/25 16:20 Temperature 36.4 C L 35.9 C L Pulse Rate 77 69 Respiratory Rate 16 18 16 Blood Pressure 187/78 H 164/77 H Pulse Oximetry 99 98 99 Oxygen Delivery Room Air 06/01/25 17:07 06/01/25 20:00 06/01/25 20:00 Temperature Pulse Rate 76 79 Respiratory Rate Blood Pressure Pulse Oximetry Oxygen Delivery Room Air 06/01/25 20:39 06/02/25 00:00 06/02/25 04:00 Temperature 37.8 C H Pulse Rate 100 75 69 Respiratory Rate 18 Blood Pressure 95/55 L Pulse Oximetry 96 Oxygen Delivery 06/02/25 06:00 06/02/25 08:00 06/02/25 08:00 Temperature 36.4 C Pulse Rate 74 71 Respiratory Rate 18 Blood Pressure 176/92 H Pulse Oximetry 100 Oxygen Delivery Room Air 06/02/25 09:31 Temperature Pulse Rate Respiratory Rate Blood Pressure Pulse Oximetry 92 Oxygen Delivery Room Air Intake/Output Intake/Output: Intake & Output 05/30/25 05/31/25 06/01/25 06/02/25 23:59 22:59 23:59 23:59 Intake Total 056 052 0285.0 1000 Output Total 690 973 3385 Balance -50 250 3811.0 1000 Meds/Results Medications: Active Medications Generic Name Dose Route Start Last Admin Trade Name Freq PRN Reason Stop Dose Admin Albuterol 2.5 mg 05/30/25 06:49 Albuterol Sulfate Neb 2.5 Mg/3 Ml Inh INHALATION Q4HRT PRN Shortness Of Breath Clonazepam 0.5 mg 05/31/25 13:27 06/01/25 22:16 Clonazepam (*Crx) 0.5 Mg Tablet PO 0.5 mg BID PRN Administration Anxiety Clonidine HCl 1 patch 05/31/25 09:00 05/31/25 08:23 Clonidine 0.2 Mg/24 Hr Patch TRANSDERM 1 patch WEEKLY ANDRÉS Administration Dextrose 12.5 gm 05/29/25 20:44 05/31/25 05:24 Dextrose 50% 25 Gm/50 Ml Syringe IV PUSH 12.5 gm PRN PRN Administration Hypoglycemia Protocol Gabapentin 300 mg 05/31/25 21:00 06/01/25 22:07 Gabapentin 300 Mg Capsule PO 300 mg HS ANDRÉS Administration Glucagon 1 mg 05/29/25 20:44 05/30/25 07:09 Glucagon For Inj 1 Mg Vial IM 1 mg PRN PRN Administration Hypoglycemia Protocol Glucose 15 gm 05/29/25 20:44 Glucose Oral Gel 15 Gm Of Glucse In 37.5 Gm Tube PO PRN PRN Hypoglycemia Protocol Heparin Sodium (Porcine) 5,000 units 06/01/25 14:00 06/02/25 06:15 Heparin Sodium 5,000 Units/Ml Vial SUB-Q 5,000 units Q8HR ANDRÉS Administration Hydralazine HCl 75 mg 06/01/25 09:00 06/02/25 08:29 Hydralazine Hcl 25 Mg Tablet PO 75 mg TID ANDRÉS Administration Hydromorphone HCl 0.5 mg 05/30/25 06:43 Hydromorphone Hcl Inj (*Crx) 1 Mg/Ml Syr IV PUSH Q3H PRN Pain Rated 7-10 Ceftriaxone Sodium 1 gm/ 50 mls @ 100 mls/hr 05/30/25 21:00 06/01/25 22:36 Sodium Chloride IVPB 06/02/25 21:29 Infused Q24H ANDRÉS Infusion Dextrose 1,000 mls @ 100 mls/hr 05/29/25 20:44 Dextrose 5% 1,000 Ml IVPB PRN PRN Hypoglycemia Protocol Dextrose 1,000 mls @ 75 mls/hr 05/31/25 09:15 06/02/25 06:19 Dextrose 5% 1,000 Ml IV CONT 75 mls/hr .[id number] ANDRÉS Administration Albumin Human 50 mls @ 999 mls/hr 05/31/25 15:12 Albutein IVPB 06/30/25 15:11 Q10M PRN HYPOTENSION Losartan Potassium 50 mg 06/02/25 09:00 06/02/25 08:34 Losartan Potassium 25 Mg Tablet PO 50 mg [id number] ANDRÉS Administration Nifedipine 60 mg 06/01/25 21:00 06/01/25 22:06 Nifedipine 30 Mg Tab.Er.24 PO 60 mg HS ANDRÉS Administration Ondansetron HCl 4 mg 05/29/25 20:44 06/02/25 10:35 Ondansetron Inj 4 Mg/2 Ml Vial IV PUSH 4 mg Q4H PRN Administration Nausea Phenol 1 spray 05/30/25 06:22 05/30/25 18:57 Phenol/Sod Pheno [place] Blackman (*Bkc) MUCOUS MEM 1 spray PRN PRN Administration Sore Throat Trazodone HCl 50 mg 05/31/25 13:29 06/01/25 22:16 Trazodone Hcl 50 Mg Tablet PO 50 mg HS PRN Administration Insomnia Radiology Results: ITS Impressions Abdomen/Pelvis CT 05/29/25 19:10 IMPRESSION: Right double-J ureteral stent is noted. There is mild right hydronephrosis. The left kidneys atrophy. There is fluid filled distended small bowel loops with multiple air-fluid levels may represent partial to early small bowel obstruction. All CT scans at this facility are performed using low dose modulation techniques as appropriate to perform exam including the following: automated exposure control; use of iterative reconstruction technique; adjustment of the mA and/or kV according to patient size (this includes techniques or standardized protocols for targeted exams where dose is matched to indication/reason for exam). Small Bowel X-Ray 06/01/25 15:30 IMPRESSION: 1. Likely intermittent or partial small bowel obstruction in the distal ileum with transit time to the colon of between 3-4 hours. 2. Multiple postoperative changes in the abdomen and pelvis as detailed above. Chest X-Ray 06/01/25 16:38 Impression: Please see above Carotid Doppler Study 06/01/25 21:01 IMPRESSION: 1. 50-69% stenosis in the right internal carotid artery by sonographic criteria. 2. Greater than or equal to 70% stenosis in the left internal carotid artery by sonographic criteria. Abdomen X-Ray 06/02/25 08:45 IMPRESSION: 1. Air-filled loops of small bowel noted which are distended. 2. Contrast is noted within the large bowel and possibly within the stomach. If continued concern, consider a CT of the abdomen and pelvis are further assessment. Labs Labs: Laboratory Results - last 24 hr 06/01/25 06/02/25 06/02/25 13:16 00:53 05:51 WBC 7.2 RBC 4.99 Hgb 13.7 D Hct 43.5 MCV 87.2 MCH 27.5 MCHC 31.5 L RDW 15.9 H Plt Count 154 MPV 9.9 Immature Gran % (Auto) 0.3 Neut % (Auto) 82.4 H Lymph % (Auto) 8.9 L Tate % (Auto) 7.4 Eos % (Auto) 0.3 Baso % (Auto) 0.7 Lymph # (Auto) 0.64 L Tate # (Auto) 0.5 Eos # (Auto) 0.0 Baso # (Auto) 0.1 Abs Immat Gran (auto) 0.02 Absolute Neuts (auto) 5.9 Absolute Nucleated RBC 0.000 Nucleated RBC % 0.0 Sodium 129 L Potassium 3.6 Chloride 87 L Carbon Dioxide 38 H Anion Gap 4 BUN 30 H Creatinine 3.13 H Estim Creat Clear Calc 10 Estimated GFR 15 L Glucose 144 H POC Capillary Glucose 130 H 134 H Calcium 10.7 H Nasal MRSA (PCR) 06/02/25 09:18 WBC RBC Hgb Hct MCV MCH MCHC RDW Plt Count MPV Immature Gran % (Auto) Neut % (Auto) Lymph % (Auto) Tate % (Auto) Eos % (Auto) Baso % (Auto) Lymph # (Auto) Tate # (Auto) Eos # (Auto) Baso # (Auto) Abs Immat Gran (auto) Absolute Neuts (auto) Absolute Nucleated RBC Nucleated RBC % Sodium Potassium Chloride Carbon Dioxide Anion Gap BUN Creatinine Estim Creat Clear Calc Estimated GFR Glucose POC Capillary Glucose Calcium Nasal MRSA (PCR) Not detected Imaging Attestation: I personally reviewed and interpreted this imaging study as follows: (Chest x-ray from yesterday, abdominal plain film from today) My impression: Tunneled central venous catheter in same position as on previous chest x-rays. Contrast has reached the rectum, no contrast in residual small intestine. Radiologist's impression: FINDINGS: Ill-defined spiculated appearing density noted in the left lung apex possibly an area of nodular scarring but incompletely evaluated, this appears more prominent compared to the prior study and may represent a small focus of pneumonia, follow-up recommended to assess resolution No pneumothorax. Heart is normal size. Mediastinal and hilar contours are within normal limits. Poststernotomy. Miscellaneous: Right central line terminates in the SVC. Impression: Please see above
--- NOTE | 2025-06-02 12:35 | WPDHPUPDATE1 ---
History and Physical Update Update Date/Time: 06/02/25 12:35 History and Physical has been reviewed, including an updated exam of the patient. There are NO changes in the patient's condition. Risks, benefits, and alternatives have been discussed and questions answered. Patient agrees to proceed with procedure.
--- NOTE | 2025-06-02 13:27 | WPDANESEPPF ---
Anes - Initial Pre Proc Eval Procedure: Operation Date: 06/02/25 13:00 Proposed Procedures p Removal Tunneled Dialysis Catheter, Placement New Tunneled Dialysis Central Venous Catheter Under Fluoroscopy - Yonas Gonzalez MD Date/Time: 06/02/25 13:27 Surgeon: Mahesh Castro MD Pre Op Diagnosis: SBO, UTI, PNA, ESRD on HD Patient Data Age: 70 Gender: F Height: 1.57 m Weight: 42.2 kg Last Vital Signs Temp 36.6 C 06/02/25 12:38 Pulse 81 06/02/25 12:38 Resp 18 06/02/25 06:00 BP 177/63 H 06/02/25 12:38 Pulse Ox 100 06/02/25 12:38 O2 Del Method Room Air 06/02/25 12:38 Allergies Allergy/AdvReac Type Severity Reaction Status Date / Time iohexol (From contrast - CT, Allergy Mild Rash Verified 05/29/25 18:31 X-RAY) ciprofloxacin (From Cipro) AdvReac Unknown Other Verified 05/29/25 23:44 fentanyl AdvReac Other Verified 05/29/25 18:31 Home Medications ?Medication ?Instructions ?Recorded ?Confirmed ?Type aspirin 325 mg tablet 325 mg PO HS 11/26/22 05/29/25 History clonazepam 1 mg tablet 0.5 mg PO BID PRN Anxiety 11/26/22 05/29/25 History furosemide 40 mg tablet 40 mg PO BID 11/26/22 05/29/25 History gabapentin 300 mg capsule 300 mg PO HS 11/26/22 05/29/25 History Colace 100 mg PO DAILY PRN Constipation 04/10/24 05/29/25 History Miralax 17 g PO DAILY PRN Constipation 04/10/24 05/29/25 History Vitamin D3 1,000 units PO DAILY 04/10/24 05/29/25 History losartan 25 mg tablet 50 mg (2 x 25 mg) PO DAILY #30 tabs 04/14/24 05/29/25 Rx hydralazine 25 mg tablet 75 mg PO TID 05/29/25 05/29/25 History nifedipine 30 mg tablet,extended 60 mg PO HS 05/29/25 05/29/25 History release 24 hr (Procardia XL) octreotide acetate 100 mcg/mL (1 100 mcg subcut Q24H PRN diarrhea 05/29/25 05/29/25 History mL) injection syringe ondansetron 8 mg disintegrating 8 mg translingual Q8H PRN nausea 05/29/25 05/29/25 History tablet and vomiting pantoprazole 40 mg tablet,delayed 40 mg PO DAILY 05/29/25 05/29/25 History release Laboratory Tests 06/01/25 06/02/25 06/02/25 13:16 00:53 05:51 WBC 7.2 K/mm3 (4.5-10.0) RBC 4.99 M/mm3 (4.2-5.4) Hgb 13.7 D g/dL (12.0-15.0) Hct 43.5 % (37.0-47.0) MCV 87.2 fl (80-100) MCH 27.5 pg (26-34) MCHC 31.5 L g/dl (32-36) RDW 15.9 H % (11.5-14.5) Plt Count 154 k/mm3 (150-375) MPV 9.9 fl (7.4-10.4) Immature Gran % (Auto) 0.3 % (0-0.5) Neut % (Auto) 82.4 H % (45.5-73.1) Lymph % (Auto) 8.9 L % (18.3-44.2) [place] % (Auto) 7.4 % (2.6-8.5) Eos % (Auto) 0.3 % (0-4.4) Baso % (Auto) 0.7 % (0.2-1.2) Lymph # (Auto) 0.64 L K/mm3 (0.9-3.2) [place] # (Auto) 0.5 K/mm3 (0.1-0.6) Eos # (Auto) 0.0 K/mm3 (0-0.3) Baso # (Auto) 0.1 K/mm3 (0.0-0.1) Abs Immat Gran (auto) 0.02 K/mm3 (0.00-0.031) Absolute Neuts (auto) 5.9 K/mm3 (1.3-6.7) Absolute Nucleated RBC 0.000 K/mm3 (0.0-0.012) Nucleated RBC % 0.0 % (0.0-0.2) Sodium 129 L mmol/L (137-145) Potassium 3.6 mmol/L (3.4-5.0) Chloride 87 L mmol/L (98-107) Carbon Dioxide 38 H mmol/L (22-30) Anion Gap 4 mmol/L (4-12) BUN 30 H mg/dL (7-17) Creatinine 3.13 H mg/dL (0.7-1.0) Estim Creat Clear Calc 10 ml/min Estimated GFR 15 L (59 - ) Glucose 144 H mg/dL (65-110) POC Capillary Glucose 130 H mg/dl 134 H mg/dl (65-105) (65-105) Calcium 10.7 H mg/dL (8.4-10.2) Nasal MRSA (PCR) 06/02/25 06/02/25 09:18 12:52 WBC RBC Hgb Hct MCV MCH MCHC RDW Plt Count MPV Immature Gran % (Auto) Neut % (Auto) Lymph % (Auto) [place] % (Auto) Eos % (Auto) Baso % (Auto) Lymph # (Auto) [place] # (Auto) Eos # (Auto) Baso # (Auto) Abs Immat Gran (auto) Absolute Neuts (auto) Absolute Nucleated RBC Nucleated RBC % Sodium Potassium Chloride Carbon Dioxide Anion Gap BUN Creatinine Estim Creat Clear Calc Estimated GFR Glucose POC Capillary Glucose 148 H mg/dl (65-105) Calcium Nasal MRSA (PCR) Not detected (NOT DETECTE) Patient hx anesthesia problems: none Family hx anesthesia problems: none Results Review: All pre-operative results and documents have been reviewed as part of the pre-operative evaluation. COUNT INCLUDES THE [facility] Past Medical History Medical History Lung nodule The patient stated that she took radiation for lung cancer and it is now resolved. Anxiety History of small bowel obstruction Carotid stenosis Most recent carotid Doppler July 2022: Less than 50% stenosis right internal carotid artery and greater than 70% stenosis of the left internal carotid artery. Hypothyroidism History of GI bleed Multiple and requiring transfusion. No longer on chronic anticoagulation due to bleeds Atrial fibrillation Kidney stones Peripheral artery disease Moderate to severe bilateral lower extremity peripheral vascular disease noted on ABIs July 2022 End-stage renal disease on hemodialysis Essential hypertension Coronary artery disease Surgical History Surgical History History of bowel resection History of laparoscopic cholecystectomy (2000) History of vascular surgery History of cardiac radiofrequency ablation Retained ureteral stent Chronic S/P dialysis catheter insertion Right upper chest was placed and removed, currently in left upper chest History of ventral hernia repair With mesh Stenosis of right femoral artery Status post stent approximately 1994 History of abdominal aortic aneurysm repair (1997) Open repair History of four vessel coronary artery bypass graft (1997) Family History Family History Sibling Acute myocardial infarction Hx of CABG Sibling , As a child Third degree burn injury Sibling Opiate abuse, continuous Mother Age older than 80 years Father , Age greater than 80 Acute myocardial infarction, Onset Age: 45 Sibling Acute myocardial infarction Heart disease Social History Social History Social History: She is . Surrogate medical decision maker: Beverley Truonggle, daughter Code status: Full code Smoking packs per day: 2 Smoking cigarettes per day: 40.0 Years smoked: 28 Smoking pack-years: 56.00 Smoking status: Former smoker Tobacco type: cigarettes Smoking end date: 07/30/97 Alcohol intake: never Substance use: never Substance use type: does not use Do You Feel Safe in your Home?: Yes Lack of Transportation: No Lack of Food: Never True Current Housing: I Have Housing Concerned About Future Housing: No Difficulty Paying Gas/Electric Bills: No Difficulty Paying for Meds: No Currently Unemployed: No Education: High School Diploma/GED Difficulty w/ Childcare or Family Care: No Additional living arrangements comments: She is and lives alone. She has 1 of her 3 daughters living nearby. 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 Spiritual care concerns: No Anes - Eval Final PreProcedure Day of Procedure 06/02/25 13:27 Patient weight: cachectic Heart: regular rate and rhythm Lungs: decreased breath sounds Airway: Mallampati scale class III Neurological: lethargic Last oral intake: >/= 8 hours ASA classification: IV Emergent: no Anesthetic plan: proceed Anesthesia type and monitoring: general GIVS and standard monitoring Results Review: All pre-operative results and documents have been reviewed as part of the pre-operative evaluation. Informed Consent: The patient's anesthetic plan and its attendant risks and benefits were discussed with the patient/family/POA. Questions were solicited and answers provided to the satisfaction of the patient/family/POA.
[2025-06-02] MEDS: SODIUM CHLORIDE 0.9% IV 500 ML 30 ML IV CONT (13:30)
--- NOTE | 2025-06-02 13:37 | PCPTNOTE ---
Attempted to see patient for PT, however patient was out of the room for procedure and unable to been seen this date.
[2025-06-02] MEDS: ceFAZolin 2 GM in SODIUM CHLORIDE 0.9% IV 50 ML 100 ML IVPB (14:30)
[2025-06-02] MEDS: LIDO 1%/EPINEPHRINE 1:100,000 50 ML VIAL (14:41)
[2025-06-02] MEDS: HEPARIN SODIUM, PORCINE 10,000 UNITS/10 ML VIAL 10000 UNITS XX (14:44)
--- NOTE | 2025-06-02 15:34 | W.PM.PROC2 ---
Procedure Note - Detailed Date of Procedure 06/02/25 Pre-op Diagnosis Mechanical complication vascular access device, end-stage renal disease Post-op Diagnosis Same Procedure Performed Removal right subclavian tunneled central venous catheter, placement right internal jugular dura flow catheter using ultrasound and under fluoroscopy Surgeon Yonas Gonzalez MD Senior Marketing Data Analyst [employer] JUDD Anesthesia General (G IV S) Indications Patient is a 70-year-old woman with end-stage renal disease on hemodialysis. She had a right subclavian tunneled central venous catheter placed in 2022 that she had been using for dialysis. During this admission, the catheter was unable to be used, it appeared to be clotted. Patient is taken back to surgery now for placement of a new tunneled central venous catheter as well as removal of the nonfunctioning right subclavian tunneled catheter. Findings Right IJ tunneled dura flow catheter able to be placed in the distal SVC right atrial junction. Right subclavian tunneled catheter able to be removed without difficulty. Description of Procedure The patient was taken to surgery and placed in a supine position. The bandages and suture were removed from the existing right subclavian tunneled central venous catheter. Prep and drape was carried out leaving the existing catheter in the field at the caudal edge of the field. Using ultrasound, I was able to identify the right internal jugular vein. It was exceptionally small. We then placed the patient in deep Trendelenburg. This helped significantly as now on the right internal jugular vein was at least the same size as the carotid artery. I was able to cannulate the right internal jugular vein and pass a guidewire into the superior vena cava and eventually to the inferior vena cava. With this in position, we then placed the patient back supine with just a little reverse Trendelenburg. The sleeve on the existing CVC was right at the exit point of the catheter. I infiltrated local anesthetic into the skin and subcutaneous in this area. I enlarged the incision there and then dissected the sleeve from the skin and subcutaneous. I then dissected and freed the surrounding capsule around the catheter just distal to the sleeve. When this was accomplished, the catheter easily was removed. Pressure was held initially over the tunneling site but there was really no significant back bleeding from the subclavian vein. The catheter was intact. It was placed under the drapes an out of the way. The surgical team then changed outer gloves and used different instruments to proceed with placing the new catheter. I closed the exit site of the previous catheter was subcuticular 4-0 Vicryl interrupted suture. I then used fluoroscopy and mapped the proposed course of the 28 cm long dura flow catheter. Counter incisions were marked on the chest and neck. Local was infiltrated in the area where the counter incisions were marked. Incisions were then made there as well as at the exit site of the guidewire. I then tunneled the dura flow catheter retrograde until the into the catheter came out the exit site of the guidewire. The catheter was checked to show no kinks in the tunneling. I then used fluoroscopy and passed serial dilators over the guidewire. Finally the introducer and sheath were passed over the guidewire also under fluoroscopy. I then removed the guidewire and the sheath leaving the sleeve in place. The in of the dura flow catheter was then paced in the sleeve and passed down into the distal SVC. The sleeve was then removed. I did some adjustment of the course of the dura flow catheter so there were no kinks as it turned to pass into the internal jugular vein. We then checked the catheter under fluoroscopy. The curve looked very good and there were no abrupt angulation or areas of narrowing in the catheter's path. I did pull the catheter back just a bit as it was too far into the right atrium. Now it appeared to be at the SVC/right atrial junction. I irrigated and flushed the port with heparin. Both ports aspirated blood readily and irrigated easily. I then flushed each lumen with the final flush of heparin and capped the ends. Each of the counter incisions as well as the exit site of the tunneled catheter was closed with a subcuticular interrupted 4-0 Vicryl suture. The incisions not associated with the exit site of the catheter were dressed with Exofin adhesive. The exit site of the previous tunnel catheter was also dressed with Exofin adhesive. StatSeal ring, 2 x 2 gauze, and Tegaderm were placed to cover the exit site of the tunneled catheter. The ends or caps of the catheter were covered with 4 x 4 gauze. Patient was then awakened and taken to recovery in good condition. Sponge and needle counts were correct x2. Portable chest x-ray is pending. Implants 28 cm dual-lumen dura flow tunneled central venous catheter Estimated Blood Loss -5 Urine Output 100 Drains No Packing No Pathology None sent Complications None Condition Stable Disposition PACU [facility] Billing Surgery - Charge Forward: Surgery Billing (Removal right subclavian tunneled central venous catheter, placement right internal jugular dura flow catheter using ultrasound and under fluoroscopy)
--- NOTE | 2025-06-02 16:04 | PM.IMPN ---
Progress Note: A&P Assessment and Plan (1) Small bowel obstruction: Code(s): K56.609 - Unspecified intestinal obstruction, unspecified as to partial versus complete obstruction Status: Acute (2) End-stage renal disease on hemodialysis: Code(s): N18.6 - End stage renal disease; Z99.2 - Dependence on renal dialysis Status: Chronic (3) UTI (urinary tract infection): Code(s): N39.0 - Urinary tract infection, site not specified Status: Suspected (4) Pneumonia: Qualifiers: Laterality: bilateral Lung location: unspecified part of lung Pneumonia type: due to unspecified organism Qualified Code(s): J18.9 - Pneumonia, unspecified organism Code(s): J18.9 - Pneumonia, unspecified organism Status: Acute (5) Essential hypertension: Code(s): I10 - Essential (primary) hypertension Status: Chronic Plan 70-year-old female with past medical history of hypertension, end-stage renal disease on dialysis presented with not feeling well, generalized weakness. Patient has history of multiple abdominal surgeries, small bowel obstruction. CT abdomen pelvis showed fluid filled distended small bowel loops with multiple air-fluid levels may represent partial to early small bowel obstruction. Chest x-ray was suggestive of bilateral pneumonia. 1. Small-bowel obstruction: Status post NG tube removal Small-bowel follow-through shows partial obstruction Surgery following, appreciate rec Tolerating p.o. meds with sips Supplement potassium Had bowel movement x2 After surgery, okay to try a clear liquid diet if surgery is okay with the plan. 2. Multifocal pneumonia: Patient in room air Completed azithromycin Last dose for ceftriaxone is today 3. UTI ruled out, urine culture has been negative 4. End-stage renal disease on dialysis: Nephrology following Dialysis as per Renal Supplement potassium today 5. Hypertension: Resume home dose hydralazine, losartan, nifedipine Continue with clonidine patch 6. Recent hypoglycemia: Due to NPO status Continue with D5 until NPO Blood glucose check q.6 hours for now 7. Code status: Full 8. DVT prophylaxis: Heparin subQ 9. Disposition: Pending improvement, can be transferred out of IMU Time Spent With Patient Time: 40 minutes Subjective Date/time seen: 06/02/25 16:04 Interval history: She had a bowel movement x2. Passing gas. She has nausea and vomiting. She still complains abdominal pain. Discussed goal of care with her daughter and the patient she is reconsidering hospice but she wants to go through these 1st. Showed like to be DNR DNI tomorrow. Review of Systems Review of Systems: All systems reviewed & are unremarkable except as noted in HPI and below Exam Narrative: APPEARANCE: mild distress from abdominal pain. poor dentition. EYES: EOMI HEENT: Normocephalic, atraumatic, OMM RESPIRATORY:Right chest port-A-Cath no infection. No respiratory distress Clear to auscultation bilaterally with no rhonchi wheezing or rales. CARDIOVASCULAR: RRR, S1 and S2 without murmurs rubs or gallops. ABDOMINAL: Soft, nontender, nondistended, no rebound or guarding MSK: Full range of motion. NEURO: Awake and alert. Following commands, speech normal, no focal deficits SKIN:: Warm, dry. No rashes lesions or abrasions PSYCHIATRIC: Normal affect/mood Objective Data Vital Signs Vital Signs: Vital Signs - 24 hr 06/01/25 16:20 06/01/25 17:07 06/01/25 20:00 Temperature Pulse Rate 76 Respiratory Rate 16 Blood Pressure Pulse Oximetry 99 Oxygen Delivery Room Air Room Air 06/01/25 20:00 06/01/25 20:39 06/02/25 00:00 Temperature 37.8 C H Pulse Rate 79 100 75 Respiratory Rate 18 Blood Pressure 95/55 L Pulse Oximetry 96 Oxygen Delivery 06/02/25 04:00 06/02/25 06:00 06/02/25 08:00 Temperature 36.4 C Pulse Rate 69 74 Respiratory Rate 18 Blood Pressure 176/92 H Pulse Oximetry 100 Oxygen Delivery Room Air 06/02/25 08:00 06/02/25 09:31 06/02/25 12:00 Temperature Pulse Rate 71 69 Respiratory Rate Blood Pressure Pulse Oximetry 92 Oxygen Delivery Room Air 06/02/25 12:38 Temperature 36.6 C Pulse Rate 81 Respiratory Rate Blood Pressure 177/63 H Pulse Oximetry 100 Oxygen Delivery Room Air Intake/Output Intake/Output: Intake & Output 05/30/25 05/31/25 06/01/25 06/02/25 23:59 22:59 23:59 23:59 Intake Total 247 483 5317.0 1100 Output Total 682 712 5171 100 Balance -50 -250 -3811.0 1000 Meds/Results Medications: Active Medications Generic Name Dose Route Start Last Admin Trade Name Freq PRN Reason Stop Dose Admin Albuterol 2.5 mg 05/30/25 06:49 Albuterol Sulfate Neb 2.5 Mg/3 Ml Inh INHALATION Q4HRT PRN Shortness Of Breath Clonazepam 0.5 mg 05/31/25 13:27 06/01/25 22:16 Clonazepam (*Crx) 0.5 Mg Tablet PO 0.5 mg BID PRN Administration Anxiety Clonidine HCl 1 patch 05/31/25 09:00 05/31/25 08:23 Clonidine 0.2 Mg/24 Hr Patch TRANSDERM 1 patch WEEKLY ANDRÉS Administration Dextrose 12.5 gm 05/29/25 20:44 05/31/25 05:24 Dextrose 50% 25 Gm/50 Ml Syringe IV PUSH 12.5 gm PRN PRN Administration Hypoglycemia Protocol Gabapentin 300 mg 05/31/25 21:00 06/01/25 22:07 Gabapentin 300 Mg Capsule PO 300 mg HS ANDRÉS Administration Glucagon 1 mg 05/29/25 20:44 05/30/25 07:09 Glucagon For Inj 1 Mg Vial IM 1 mg PRN PRN Administration Hypoglycemia Protocol Glucose 15 gm 05/29/25 20:44 Glucose Oral Gel 15 Gm Of Glucse In 37.5 Gm Tube PO PRN PRN Hypoglycemia Protocol Heparin Sodium (Porcine) 5,000 units 06/01/25 14:00 06/02/25 06:15 Heparin Sodium 5,000 Units/Ml Vial SUB-Q 5,000 units Q8HR ANDRÉS Administration Hydralazine HCl 75 mg 06/01/25 09:00 06/02/25 08:29 Hydralazine Hcl 25 Mg Tablet PO 75 mg TID ANDRÉS Administration Hydromorphone HCl 0.5 mg 05/30/25 06:43 Hydromorphone Hcl Inj (*Crx) 1 Mg/Ml Syr IV PUSH Q3H PRN Pain Rated 7-10 Hydromorphone HCl 0.25 mg 06/02/25 13:28 Hydromorphone Hcl Inj (*Crx) 1 Mg/Ml Syr IV PUSH Q5M PRN Pain Ceftriaxone Sodium 1 gm/ 50 mls @ 100 mls/hr 05/30/25 21:00 06/01/25 22:36 Sodium Chloride IVPB 06/02/25 21:29 Infused Q24H ANDRÉS Infusion Dextrose 1,000 mls @ 100 mls/hr 05/29/25 20:44 Dextrose 5% 1,000 Ml IVPB PRN PRN Hypoglycemia Protocol Dextrose 1,000 mls @ 75 mls/hr 05/31/25 09:15 06/02/25 06:19 Dextrose 5% 1,000 Ml IV CONT 75 mls/hr .[id number] ANDRÉS Administration Albumin Human 50 mls @ 999 mls/hr 05/31/25 15:12 Albutein IVPB 06/30/25 15:11 Q10M PRN HYPOTENSION Sodium Chloride 500 mls @ 30 mls/hr 06/02/25 13:30 06/02/25 15:44 Normal Saline Iv IV CONT Infused .[id number] ANDRÉS Infusion Sodium Chloride 500 mls @ 30 mls/hr 06/02/25 13:30 Normal Saline Iv IV CONT .[id number] ANDRÉS Losartan Potassium 50 mg 06/02/25 09:00 06/02/25 08:34 Losartan Potassium 25 Mg Tablet PO 50 mg [id number] ANDRÉS Administration Nifedipine 60 mg 06/01/25 21:00 06/01/25 22:06 Nifedipine 30 Mg Tab.Er.24 PO 60 mg HS ANDRÉS Administration Ondansetron HCl 4 mg 05/29/25 20:44 06/02/25 10:35 Ondansetron Inj 4 Mg/2 Ml Vial IV PUSH 4 mg Q4H PRN Administration Nausea Ondansetron HCl 4 mg 06/02/25 13:28 06/02/25 15:55 Ondansetron Inj 4 Mg/2 Ml Vial IV PUSH 4 mg ONCE PRN Administration Nausea Phenol 1 spray 05/30/25 06:22 05/30/25 18:57 Phenol/Sod Pheno [place] (*Bkc) MUCOUS MEM 1 spray PRN PRN Administration Sore Throat Trazodone HCl 50 mg 05/31/25 13:29 06/01/25 22:16 Trazodone Hcl 50 Mg Tablet PO 50 mg HS PRN Administration Insomnia Radiology Results: ITS Impressions Abdomen/Pelvis CT 05/29/25 19:10 IMPRESSION: Right double-J ureteral stent is noted. There is mild right hydronephrosis. The left kidneys atrophy. There is fluid filled distended small bowel loops with multiple air-fluid levels may represent partial to early small bowel obstruction. All CT scans at this facility are performed using low dose modulation techniques as appropriate to perform exam including the following: automated exposure control; use of iterative reconstruction technique; adjustment of the mA and/or kV according to patient size (this includes techniques or standardized protocols for targeted exams where dose is matched to indication/reason for exam). Small Bowel X-Ray 06/01/25 15:30 IMPRESSION: 1. Likely intermittent or partial small bowel obstruction in the distal ileum with transit time to the colon of between 3-4 hours. 2. Multiple postoperative changes in the abdomen and pelvis as detailed above. Carotid Doppler Study 06/01/25 21:01 IMPRESSION: 1. 50-69% stenosis in the right internal carotid artery by sonographic criteria. 2. Greater than or equal to 70% stenosis in the left internal carotid artery by sonographic criteria. Abdomen X-Ray 06/02/25 08:45 IMPRESSION: 1. Air-filled loops of small bowel noted which are distended. 2. Contrast is noted within the large bowel and possibly within the stomach. If continued concern, consider a CT of the abdomen and pelvis are further assessment. Central Venous Line 06/02/25 15:30 IMPRESSION: Fluoroscopy used during central line placement. Labs Labs: Laboratory Results - last 24 hr 06/02/25 06/02/25 06/02/25 00:53 05:51 09:18 WBC 7.2 RBC 4.99 Hgb 13.7 D Hct 43.5 MCV 87.2 MCH 27.5 MCHC 31.5 L RDW 15.9 H Plt Count 154 MPV 9.9 Immature Gran % (Auto) 0.3 Neut % (Auto) 82.4 H Lymph % (Auto) 8.9 L [place] % (Auto) 7.4 Eos % (Auto) 0.3 Baso % (Auto) 0.7 Lymph # (Auto) 0.64 L [place] # (Auto) 0.5 Eos # (Auto) 0.0 Baso # (Auto) 0.1 Abs Immat Gran (auto) 0.02 Absolute Neuts (auto) 5.9 Absolute Nucleated RBC 0.000 Nucleated RBC % 0.0 Sodium 129 L Potassium 3.6 Chloride 87 L Carbon Dioxide 38 H Anion Gap 4 BUN 30 H Creatinine 3.13 H Estim Creat Clear Calc 10 Estimated GFR 15 L Glucose 144 H POC Capillary Glucose 134 H Calcium 10.7 H Nasal MRSA (PCR) Not detected 06/02/25 12:52 WBC RBC Hgb Hct MCV MCH MCHC RDW Plt Count MPV Immature Gran % (Auto) Neut % (Auto) Lymph % (Auto) [place] % (Auto) Eos % (Auto) Baso % (Auto) Lymph # (Auto) [place] # (Auto) Eos # (Auto) Baso # (Auto) Abs Immat Gran (auto) Absolute Neuts (auto) Absolute Nucleated RBC Nucleated RBC % Sodium Potassium Chloride Carbon Dioxide Anion Gap BUN Creatinine Estim Creat Clear Calc Estimated GFR Glucose POC Capillary Glucose 148 H Calcium Nasal MRSA (PCR) Quality VTE Prophylaxis VTE prophylaxis: pharmacologic ordered
[2025-06-02] MEDS: HYDROmorphone HCL INJ (*CRX) 1 MG/ML SYR 0.25 MG IV PUSH (16:41)
--- NOTE | 2025-06-02 16:48 | SUR.PHASEI ---
1644 - 350cc of NS left in bag from OR. Unable to fix documentation.
--- NOTE | 2025-06-02 17:45 | P.PNNP_ITS ---
Progress Note: A&P Assessment and Plan (1) End stage renal disease: Code(s): N18.6 - End stage renal disease Status: Chronic Assessment and Plan: * unable to have dialysis treatment yesterday (see #3) * normally does HD on Mondays and Fridays - will transition back to this next week * HD today with new HD catheter * tentative plan next HD session on Sunday (if remains hospitalized) * follow electrolytes, volume status, and clearance (2) Small bowel obstruction: Code(s): K56.609 - Unspecified intestinal obstruction, unspecified as to partial versus complete obstruction Status: Acute Assessment and Plan: * slow improvement * admission CT scan of A/P with evidence of early/partial small bowel obstruction * also with history of nausea +vomiting and constipation for the last few days prior to admission * NG tube in place for decompression * s/p removal * serial abdominal exams and imaging * advance diet as tolerated * General Surgery following (3) Mechanical complication of central venous catheter (CVC): Code(s): T82.594A - Other mechanical complication of infusion catheter, initial encounter Status: Acute Assessment and Plan: * right subclavian tunneled HD catheter dysfunction noted with attempted dialysis treatment on 06/01 * she has had numerous HD catheter placements/exchanges since starting dialysis * apparently, her significant vascular disease complicates this issue * s/p removal of right subclavian HD catheter and placement of new RIJ HD catheter (on 06/02) * Surgery following (4) Pneumonia: Qualifiers: Laterality: bilateral Lung location: unspecified part of lung P neumonia type: due to unspecified organism Qualified Code(s): J18.9 - Pneumonia, unspecified organism Code(s): J18.9 - Pneumonia, unspecified organism Status: Acute Assessment and Plan: * as suggested by admission CXR * however, normal WBC, afebrile, and no respiratory symptoms * follow culture data * on antibiotcs (5) UTI (urinary tract infection): Code(s): N39.0 - Urinary tract infection, site not specified Status: Suspected Assessment and Plan: * admission UA suggestive * follow-up on urine culture -- negative (6) Essential hypertension: Code(s): I10 - Essential (primary) hypertension Status: Chronic Assessment and Plan: * noted fluctuations since admission * suspect pain issues playing a role along with inability to take po BP medications * PRN IV medications (i.e. hydralazine or labetalol) * resume home oral BP medications as tolerated * follow trend of hemodynamics (7) Anemia: Code(s): D64.9 - Anemia, unspecified Status: Chronic Assessment and Plan: * due to ESRD * JESSY with dialysis * follow trend of H/H (8) Anxiety: Code(s): F41.9 - Anxiety disorder, unspecified Status: Chronic Assessment and Plan: * resumed on klonopin and gabapentin * continue supportive therapy Will continue to follow. L Subjective Date/time seen: 06/02/25 17:45 Interval history: Follow-up for end stage renal disease on hemodialysis. S/P new RIJ tunneled HD catheter placement and removal of right subclavian HD catheter in OR earlier this afternoon and tolerated these procedure reasonably well; tolerating dialysis treatment at the time of my visit (seen on HD at 5:35pm); resting comfortably when seen. Exam 2 Narrative: General: elderly and thin/frail appearing female in NAD Heart: normal S1 and S2; no rub Lungs: clear to auscultation Abdomen: soft, nontender, nondistended, hypoactive bowel sounds Extremities: no cyanosis or clubbing; no edema Skin: no rash Objective Data Vital Signs Vital Signs: Vital Signs Temp Pulse Resp BP Pulse Ox O2 Del Method O2 Flow Rate 06/02/25 16:40 83 12 117/69 100 Nasal Cannula 2 06/02/25 16:25 92 14 135/87 99 Nasal Cannula 2 06/02/25 16:10 75 16 136/67 99 Nasal Cannula 2 06/02/25 15:55 81 20 146/60 H 95 Nasal Cannula 2 06/02/25 15:44 97.3 F L 71 20 110/62 92 Room Air 06/02/25 12:38 97.8 F 81 177/63 H 100 Room Air 06/02/25 12:00 69 06/02/25 09:31 92 Room Air 06/02/25 08:00 71 06/02/25 08:00 Room Air 06/02/25 06:00 97.6 F 74 18 176/92 H 100 06/02/25 04:00 69 06/02/25 00:00 75 06/01/25 20:39 100.0 F H 100 18 95/55 L 96 06/01/25 20:00 79 06/01/25 20:00 Room Air Intake/Output Intake/Output: Intake & Output 05/30/25 05/31/25 06/01/25 06/02/25 23:59 22:59 23:59 23:59 Intake Total 437 568 3752.0 1500 Output Total 086 778 8856 100 Balance -50 -250 -3811.0 1400 Meds/Results Medications: Active Medications Generic Name Dose Route Start Last Admin Trade Name Freq PRN Reason Stop Dose Admin Acetaminophen 500 mg 06/02/25 16:50 Acetaminophen 500 Mg Tablet PO Q6H PRN Pain Rated 1-3 Albuterol 2.5 mg 05/30/25 06:49 Albuterol Sulfate Neb 2.5 Mg/3 Ml Inh INHALATION Q4HRT PRN Shortness Of Breath Clonazepam 0.5 mg 05/31/25 13:27 06/01/25 22:16 Clonazepam (*Crx) 0.5 Mg Tablet PO 0.5 mg BID PRN Administration Anxiety Clonidine HCl 1 patch 05/31/25 09:00 05/31/25 08:23 Clonidine 0.2 Mg/24 Hr Patch TRANSDERM 1 patch WEEKLY ANDRÉS Administration Dextrose 12.5 gm 05/29/25 20:44 05/31/25 05:24 Dextrose 50% 25 Gm/50 Ml Syringe IV PUSH 12.5 gm PRN PRN Administration Hypoglycemia Protocol Gabapentin 300 mg 05/31/25 21:00 06/01/25 22:07 Gabapentin 300 Mg Capsule PO 300 mg HS ANDRÉS Administration Glucagon 1 mg 05/29/25 20:44 05/30/25 07:09 Glucagon For Inj 1 Mg Vial IM 1 mg PRN PRN Administration Hypoglycemia Protocol Glucose 15 gm 05/29/25 20:44 Glucose Oral Gel 15 Gm Of Glucse In 37.5 Gm Tube PO PRN PRN Hypoglycemia Protocol Heparin Sodium (Porcine) 5,000 units 06/01/25 14:00 06/02/25 06:15 Heparin Sodium 5,000 Units/Ml Vial SUB-Q 5,000 units Q8HR ANDRÉS Administration Hydralazine HCl 75 mg 06/01/25 09:00 06/02/25 08:29 Hydralazine Hcl 25 Mg Tablet PO 75 mg TID ANDRÉS Administration Hydromorphone HCl 1 mg 06/02/25 16:50 Hydromorphone Hcl Inj (*Crx) 1 Mg/Ml Syr IV PUSH Q2H PRN Breakthrough Pain Rated 7-10 or NPO Hydromorphone HCl 0.5 mg 06/02/25 16:50 Hydromorphone Hcl Inj (*Crx) 1 Mg/Ml Syr IV PUSH Q2H PRN Breakthrough Pain Rated 4-6 or NPO Ceftriaxone Sodium 1 gm/ 50 mls @ 100 mls/hr 05/30/25 21:00 06/01/25 22:36 Sodium Chloride IVPB 06/02/25 21:29 Infused Q24H ANDRÉS Infusion Dextrose 1,000 mls @ 100 mls/hr 05/29/25 20:44 Dextrose 5% 1,000 Ml IVPB PRN PRN Hypoglycemia Protocol Dextrose 1,000 mls @ 75 mls/hr 05/31/25 09:15 06/02/25 06:19 Dextrose 5% 1,000 Ml IV CONT 75 mls/hr .[id number] ANDRÉS Administration Albumin Human 50 mls @ 999 mls/hr 05/31/25 15:12 Albutein IVPB 06/30/25 15:11 Q10M PRN HYPOTENSION Losartan Potassium 50 mg 06/02/25 09:00 06/02/25 08:34 Losartan Potassium 25 Mg Tablet PO 50 mg [id number] ANDRÉS Administration Naloxone HCl 0.1 mg 06/02/25 16:50 Naloxone Hcl 0.4 Mg/Ml Vial IV PUSH Q2M PRN Opiate Reversal Nifedipine 60 mg 06/01/25 21:00 06/01/25 22:06 Nifedipine 30 Mg Tab.Er.24 PO 60 mg HS ANDRÉS Administration Ondansetron HCl 4 mg 05/29/25 20:44 06/02/25 10:35 Ondansetron Inj 4 Mg/2 Ml Vial IV PUSH 4 mg Q4H PRN Administration Nausea Phenol 1 spray 05/30/25 06:22 05/30/25 18:57 Phenol/Sod Pheno [place] (*Bkc) MUCOUS MEM 1 spray PRN PRN Administration Sore Throat Trazodone HCl 50 mg 05/31/25 13:29 06/01/25 22:16 Trazodone Hcl 50 Mg Tablet PO 50 mg HS PRN Administration Insomnia Radiology Results: ITS Impressions Abdomen/Pelvis CT 05/29/25 19:10 IMPRESSION: Right double-J ureteral stent is noted. There is mild right hydronephrosis. The left kidneys atrophy. There is fluid filled distended small bowel loops with multiple air-fluid levels may represent partial to early small bowel obstruction. All CT scans at this facility are performed using low dose modulation techniques as appropriate to perform exam including the following: automated exposure control; use of iterative reconstruction technique; adjustment of the mA and/or kV according to patient size (this includes techniques or standardized protocols for targeted exams where dose is matched to indication/reason for exam). Small Bowel X-Ray 06/01/25 15:30 IMPRESSION: 1. Likely intermittent or partial small bowel obstruction in the distal ileum with transit time to the colon of between 3-4 hours. 2. Multiple postoperative changes in the abdomen and pelvis as detailed above. Carotid Doppler Study 06/01/25 21:01 IMPRESSION: 1. 50-69% stenosis in the right internal carotid artery by sonographic criteria. 2. Greater than or equal to 70% stenosis in the left internal carotid artery by sonographic criteria. Abdomen X-Ray 06/02/25 08:45 IMPRESSION: 1. Air-filled loops of small bowel noted which are distended. 2. Contrast is noted within the large bowel and possibly within the stomach. If continued concern, consider a CT of the abdomen and pelvis are further assessment. Central Venous Line 06/02/25 15:30 IMPRESSION: Fluoroscopy used during central line placement. Chest X-Ray 06/02/25 16:27 Impression: Line placement as above. Probable early right lower lobe pneumonia Labs Labs: Laboratory Tests 06/02/25 05:51 06/02/25 05:51 Calcium 10.7 H Microbiology 05/29/25 18:33 Blood Blood Culture - Preliminary 05/29/25 19:51 Blood Blood Culture - Preliminary
[2025-06-02] MEDS: cefTRIAXone 1 GM in SODIUM CHLORIDE 0.9% IV 50 ML 100 ML IVPB (21:33)
[2025-06-02] MEDS: GABAPENTIN 300 MG CAPSULE PO (21:33)
[2025-06-03] VITALS (12 sets, daily range): BP systolic 149–185; BP diastolic 62–77; PULSE 60–84; RESP 16–18; TEMP 36.6–36.9; O2SAT 99–100
[2025-06-03] MEDS: DEXTROSE 5% 1,000 ML 1,000 ML 75 ML IV CONT ×2 (07:02→21:55)
[2025-06-03] MEDS: LOSARTAN POTASSIUM 25 MG TABLET 50 MG PO (08:55)
--- NOTE | 2025-06-03 12:38 | P.PNNP_ITS ---
Progress Note: A&P Assessment and Plan (1) End stage renal disease: Code(s): N18.6 - End stage renal disease Status: Chronic Assessment and Plan: * HD yesterday * normally does HD on Mondays and Fridays - will transition back to this next week * HD on 06/02 with new HD catheter * tentative plan next HD session on Sunday (if remains hospitalized) * follow electrolytes, volume status, and clearance (2) Small bowel obstruction: Code(s): K56.609 - Unspecified intestinal obstruction, unspecified as to partial versus complete obstruction Status: Acute Assessment and Plan: * persistent * admission CT scan of A/P with evidence of early/partial small bowel obst ruction * also with history of nausea +vomiting and constipation for the last few days prior to admission * NG tube in place for decompression * s/p removal * General Surgery following with recommendations noted: * likely needs operative intervention * however, high risk given her multiple medical comorbidities * recommending transfer to [facility] where she has had her previous operative interventions... (3) Mechanical complication of central venous catheter (CVC): Code(s): T82.594A - Other mechanical complication of infusion catheter, initial encounter Status: Resolved Assessment and Plan: * resolved * right subclavian tunneled HD catheter dysfunction noted with attempted dialysis treatment on 06/01 * she has had numerous HD catheter placements/exchanges since starting dialysis * apparently, her significant vascular disease complicates this issue * s/p removal of right subclavian HD catheter and placement of new RIJ HD catheter (on 06/02) * Surgery following (4) Pneumonia: Qualifiers: Laterality: bilateral Lung location: unspecified part of lung Pneumonia type: due to unspecified organism Qualified Code(s): J18.9 - Pneumonia, unspecified organism Code(s): J18.9 - Pneumonia, unspecified organism Status: Acute Assessment and Plan: * as suggested by admission CXR * however, normal WBC, afebrile, and no respiratory symptoms * follow culture data * on antibiotcs (5) UTI (urinary tract infection): Code(s): N39.0 - Urinary tract infection, site not specified Status: Suspected Assessment and Plan: * admission UA suggestive * follow-up on urine culture -- negative (6) Essential hypertension: Code(s): I10 - Essential (primary) hypertension Status: Chronic Assessment and Plan: * noted fluctuations since admission * suspect pain issues playing a role along with inability to take po BP medications * PRN IV medications (i.e. hydralazine or labetalol) * resume home oral BP medications as tolerated * follow trend of hemodynamics (7) Anemia: Code(s): D64.9 - Anemia, unspecified Status: Chronic Assessment and Plan: * due to ESRD * JESSY with dialysis * follow trend of H/H (8) Anxiety: Code(s): F41.9 - Anxiety disorder, unspecified Status: Chronic Assessment and Plan: * resumed on klonopin and gabapentin * continue supportive therapy Will continue to follow. Subjective Date/time seen: 06/03/25 12:38 Interval history: Follow-up for end stage renal disease on hemodialysis. Tolerated dialysis treatment yesterday afternoon/evening without any issues or problems; s/p new RIJ tunneled HD catheter placement prior to dialysis treatment; reportedly confusion earlier this AM but seems better on my visit; issues with diarrhea (multiple bowel movements) and continue to have ongoing nausea; persistent bowel obstruction noted with Surgery recommendations noted yesterday. Exam Narrative: General: elderly and thin/frail appearing female in NAD Heart: normal S1 and S2; no rub Lungs: clear to auscultation Abdomen: soft, nontender, nondistended, hypoactive bowel sounds Extremities: no cyanosis or clubbing; no edema Skin: no rash Objective Data Vital Signs Vital Signs: Vital Signs Temp Pulse Resp BP Pulse Ox O2 Del Method O2 Flow Rate 06/03/25 12:00 98.1 F 69 16 156/62 H 100 06/03/25 09:58 Room Air 06/03/25 08:12 97.8 F 68 16 166/66 H 100 06/03/25 08:00 68 06/03/25 08:00 68 99 Room Air 06/03/25 06:00 97.9 F 73 18 166/76 H 99 06/03/25 04:00 64 06/03/25 00:36 98.4 F 75 16 149/71 H 99 06/03/25 00:00 60 06/02/25 22:19 98.2 F 72 16 152/67 H 100 06/02/25 21:33 100 Nasal Cannula 2 06/02/25 20:17 96.3 F L 81 16 143/67 H 100 06/02/25 20:09 82 90/60 L 06/02/25 20:00 80 06/02/25 20:00 79 90/63 L 06/02/25 19:45 81 130/62 06/02/25 19:30 71 110/63 06/02/25 19:15 90 97/66 L 06/02/25 19:00 88 117/65 06/02/25 18:45 86 116/64 06/02/25 18:30 83 103/63 Intake/Output Intake/Output: Intake & Output 05/31/25 06/01/25 06/02/25 06/03/25 22:59 23:59 23:59 23:59 Intake Total 300 3039.0 2740 720 Output Total 550 6850 100 Balance -250 -3811.0 2640 720 Meds/Results Medications: Active Medications Generic Name Dose Route Start Last Admin Trade Name Freq PRN Reason Stop Dose Admin Acetaminophen 500 mg 06/02/25 16:50 Acetaminophen 500 Mg Tablet PO Q6H PRN Pain Rated 1-3 Albuterol 2.5 mg 05/30/25 06:49 Albuterol Sulfate Neb 2.5 Mg/3 Ml Inh INHALATION Q4HRT PRN Shortness Of Breath Clonazepam 0.5 mg 05/31/25 13:27 06/01/25 22:16 Clonazepam (*Crx) 0.5 Mg Tablet PO 0.5 mg BID PRN Administration Anxiety Clonidine HCl 1 patch 05/31/25 09:00 05/31/25 08:23 Clonidine 0.2 Mg/24 Hr Patch TRANSDERM 1 patch WEEKLY ANDRÉS Administration Dextrose 12.5 gm 05/29/25 20:44 05/31/25 05:24 Dextrose 50% 25 Gm/50 Ml Syringe IV PUSH 12.5 gm PRN PRN Administration Hypoglycemia Protocol Gabapentin 300 mg 05/31/25 21:00 06/02/25 21:33 Gabapentin 300 Mg Capsule PO 300 mg HS ANDRÉS Administration Glucagon 1 mg 05/29/25 20:44 05/30/25 07:09 Glucagon For Inj 1 Mg Vial IM 1 mg PRN PRN Administration Hypoglycemia Protocol Glucose 15 gm 05/29/25 20:44 Glucose Oral Gel 15 Gm Of Glucse In 37.5 Gm Tube PO PRN PRN Hypoglycemia Protocol Heparin Sodium (Porcine) 5,000 units 06/01/25 14:00 06/03/25 13:15 Heparin Sodium 5,000 Units/Ml Vial SUB-Q 5,000 units Q8HR ANDRÉS Administration Hydralazine HCl 75 mg 06/01/25 09:00 06/03/25 16:34 Hydralazine Hcl 25 Mg Tablet PO 75 mg TID ANDRÉS Administration Hydromorphone HCl 1 mg 06/02/25 16:50 Hydromorphone Hcl Inj (*Crx) 1 Mg/Ml Syr IV PUSH Q2H PRN Breakthrough Pain Rated 7-10 or NPO Hydromorphone HCl 0.5 mg 06/02/25 16:50 Hydromorphone Hcl Inj (*Crx) 1 Mg/Ml Syr IV PUSH Q2H PRN Breakthrough Pain Rated 4-6 or NPO Dextrose 1,000 mls @ 100 mls/hr 05/29/25 20:44 Dextrose 5% 1,000 Ml IVPB PRN PRN Hypoglycemia Protocol Dextrose 1,000 mls @ 75 mls/hr 05/31/25 09:15 06/03/25 07:02 Dextrose 5% 1,000 Ml IV CONT 75 mls/hr .[id number] ANDRÉS Administration Albumin Human 50 mls @ 999 mls/hr 05/31/25 15:12 Albutein IVPB 06/30/25 15:11 Q10M PRN HYPOTENSION Losartan Potassium 50 mg 06/02/25 09:00 06/03/25 08:55 Losartan Potassium 25 Mg Tablet PO 50 mg [id number] ANDRÉS Administration Naloxone HCl 0.1 mg 06/02/25 16:50 Naloxone Hcl 0.4 Mg/Ml Vial IV PUSH Q2M PRN Opiate Reversal Nifedipine 60 mg 06/01/25 21:00 06/02/25 21:32 Nifedipine 30 Mg Tab.Er.24 PO 60 mg HS ANDRÉS Administration Ondansetron HCl 4 mg 05/29/25 20:44 06/03/25 16:52 Ondansetron Inj 4 Mg/2 Ml Vial IV PUSH 4 mg Q4H PRN Administration Nausea Phenol 1 spray 05/30/25 06:22 05/30/25 18:57 Phenol/Sod Pheno [place] [facility] (*Bkc) MUCOUS MEM 1 spray PRN PRN Administration Sore Throat Trazodone HCl 50 mg 05/31/25 13:29 06/01/25 22:16 Trazodone Hcl 50 Mg Tablet PO 50 mg HS PRN Administration Insomnia Radiology Results: ITS Impressions Abdomen/Pelvis CT 05/29/25 19:10 IMPRESSION: Right double-J ureteral stent is noted. There is mild right hydronephrosis. The left kidneys atrophy. There is fluid filled distended small bowel loops with multiple air-fluid levels may represent partial to early small bowel obstruction. All CT scans at this facility are performed using low dose modulation techniques as appropriate to perform exam including the following: automated exposure control; use of iterative reconstruction technique; adjustment of the mA and/or kV according to patient size (this includes techniques or standardized protocols for targeted exams where dose is matched to indication/reason for exam). Small Bowel X-Ray 06/01/25 15:30 IMPRESSION: 1. Likely intermittent or partial small bowel obstruction in the distal ileum with transit time to the colon of between 3-4 hours. 2. Multiple postoperative changes in the abdomen and pelvis as detailed above. Carotid Doppler Study 06/01/25 21:01 IMPRESSION: 1. 50-69% stenosis in the right internal carotid artery by sonographic criteria. 2. Greater than or equal to 70% stenosis in the left internal carotid artery by sonographic criteria. Central Venous Line 06/02/25 15:30 IMPRESSION: Fluoroscopy used during central line placement. Chest X-Ray 06/02/25 16:27 Impression: Line placement as above. Probable early right lower lobe pneumonia Abdomen X-Ray 06/03/25 08:23 IMPRESSION: 1. Advancement of oral contrast now predominantly within the colon but with residual dilute contrast within the persistently dilated loop of small bowel in the right lower quadrant consistent with persistent intermittent versus partial obstruction. Labs Labs: Laboratory Results - last 24 hr 06/03/25 06/03/25 06/03/25 00:48 06:58 11:30 POC Capillary Glucose 135 H 94 118 H 06/03/25 16:13 POC Capillary Glucose 128 H
[2025-06-03] MEDS: ONDANSETRON INJ 4 MG/2 ML VIAL IV PUSH ×3 (13:22→21:54)
--- NOTE | 2025-06-03 13:47 | PM.PNGS ---
Subjective Subjective Date/Time Seen: 06/03/25 13:47 Patient reports: no new complaints, flatus and bowel movement Interval history: Patient received 3 hours of hemodialysis yesterday after replacement of her tunneled hemodialysis catheter. She denies having any abdominal pain today. She has had multiple loose bowel movements overnight. She reports having chronic nausea and chronic tenderness in her periumbilical area, which are both unchanged from baseline. She has not had any vomiting, and is tolerating her clear liquid diet well. Exam Const: General: comfortable and no acute distress Neck: Other: Right neck incision dry and glue intact, no drainage or erythema, mild ecchymosis, no hematoma. Right chest dialysis catheter with dressing dry and intact. GI: Inspection: other (mildly distended) GI Palp: Yes Soft to palpation (soft other than a firm area in the periumbilical region c/w palpable mesh), Yes Tenderness to palpation present (GI) (mild tenderness in the periumbilical region, reportedly chronic per patient), No Guarding due to palpation present (GI) and No Rebound tenderness present Auscultation: normal bowel sounds Objective Data Vital Signs Vital Signs: Vital Signs - 24 hr 06/02/25 15:44 06/02/25 15:55 06/02/25 16:10 Temperature 97.3 F L Pulse Rate 71 81 75 Respiratory Rate 20 20 16 Blood Pressure 110/62 146/60 H 136/67 Pulse Oximetry 92 95 99 Oxygen Delivery Room Air Nasal Cannula Nasal Cannula Oxygen Flow Rate 2 2 06/02/25 16:25 06/02/25 16:40 06/02/25 17:01 Temperature 97.7 F Pulse Rate 92 83 84 Respiratory Rate 14 12 12 Blood Pressure 135/87 117/69 110/62 Pulse Oximetry 99 100 100 Oxygen Delivery Nasal Cannula Nasal Cannula Oxygen Flow Rate 2 2 06/02/25 17:09 06/02/25 17:09 06/02/25 17:15 Temperature Pulse Rate 77 69 Respiratory Rate Blood Pressure 114/64 174/67 H Pulse Oximetry Oxygen Delivery Oxygen Flow Rate 2 06/02/25 17:30 06/02/25 17:39 06/02/25 17:45 Temperature Pulse Rate 64 80 77 Respiratory Rate Blood Pressure 86/56 L 98/60 L 101/57 L Pulse Oximetry Oxygen Delivery Oxygen Flow Rate 06/02/25 18:00 06/02/25 18:15 06/02/25 18:30 Temperature Pulse Rate 79 80 83 Respiratory Rate Blood Pressure 102/60 94/59 L 103/63 Pulse Oximetry Oxygen Delivery Oxygen Flow Rate 06/02/25 18:45 06/02/25 19:00 06/02/25 19:15 Temperature Pulse Rate 86 88 90 Respiratory Rate Blood Pressure 116/64 117/65 97/66 L Pulse Oximetry Oxygen Delivery Oxygen Flow Rate 06/02/25 19:30 06/02/25 19:45 06/02/25 20:00 Temperature Pulse Rate 71 81 79 Respiratory Rate Blood Pressure 110/63 130/62 90/63 L Pulse Oximetry Oxygen Delivery Oxygen Flow Rate 06/02/25 20:00 06/02/25 20:09 06/02/25 20:17 Temperature 96.3 F L Pulse Rate 80 82 81 Respiratory Rate 16 Blood Pressure 90/60 L 143/67 H Pulse Oximetry 100 Oxygen Delivery Oxygen Flow Rate 06/02/25 21:33 06/02/25 22:19 06/03/25 00:00 Temperature 98.2 F Pulse Rate 72 60 Respiratory Rate 16 Blood Pressure 152/67 H Pulse Oximetry 100 100 Oxygen Delivery Nasal Cannula Oxygen Flow Rate 2 06/03/25 00:36 06/03/25 04:00 06/03/25 06:00 Temperature 98.4 F 97.9 F Pulse Rate 75 64 73 Respiratory Rate 16 18 Blood Pressure 149/71 H 166/76 H Pulse Oximetry 99 99 Oxygen Delivery Oxygen Flow Rate 06/03/25 08:00 06/03/25 08:00 06/03/25 08:12 Temperature 97.8 F Pulse Rate 68 68 68 Respiratory Rate 16 Blood Pressure 166/66 H Pulse Oximetry 99 100 Oxygen Delivery Room Air Oxygen Flow Rate 06/03/25 09:58 Temperature Pulse Rate Respiratory Rate Blood Pressure Pulse Oximetry Oxygen Delivery Room Air Oxygen Flow Rate Intake/Output Intake/Output: Intake & Output 05/31/25 06/01/25 06/02/25 06/03/25 22:59 23:59 23:59 23:59 Intake Total 300 3039.0 2740 0 Output Total 550 6850 100 Balance -250 -3811.0 2640 0 Meds/Results Medications: Active Medications Generic Name Dose Route Start Last Admin Trade Name Freq PRN Reason Stop Dose Admin Acetaminophen 500 mg 06/02/25 16:50 Acetaminophen 500 Mg Tablet PO Q6H PRN Pain Rated 1-3 Albuterol 2.5 mg 05/30/25 06:49 Albuterol Sulfate Neb 2.5 Mg/3 Ml Inh INHALATION Q4HRT PRN Shortness Of Breath Clonazepam 0.5 mg 05/31/25 13:27 06/01/25 22:16 Clonazepam (*Crx) 0.5 Mg Tablet PO 0.5 mg BID PRN Administration Anxiety Clonidine HCl 1 patch 05/31/25 09:00 05/31/25 08:23 Clonidine 0.2 Mg/24 Hr Patch TRANSDERM 1 patch WEEKLY ANDRÉS Administration Dextrose 12.5 gm 05/29/25 20:44 05/31/25 05:24 Dextrose 50% 25 Gm/50 Ml Syringe IV PUSH 12.5 gm PRN PRN Administration Hypoglycemia Protocol Gabapentin 300 mg 05/31/25 21:00 06/02/25 21:33 Gabapentin 300 Mg Capsule PO 300 mg HS ANDRÉS Administration Glucagon 1 mg 05/29/25 20:44 05/30/25 07:09 Glucagon For Inj 1 Mg Vial IM 1 mg PRN PRN Administration Hypoglycemia Protocol Glucose 15 gm 05/29/25 20:44 Glucose Oral Gel 15 Gm Of Glucse In 37.5 Gm Tube PO PRN PRN Hypoglycemia Protocol Heparin Sodium (Porcine) 5,000 units 06/01/25 14:00 06/03/25 13:15 Heparin Sodium 5,000 Units/Ml Vial SUB-Q 5,000 units Q8HR ANDRÉS Administration Hydralazine HCl 75 mg 06/01/25 09:00 06/03/25 13:15 Hydralazine Hcl 25 Mg Tablet PO 75 mg TID ANDRÉS Administration Hydromorphone HCl 1 mg 06/02/25 16:50 Hydromorphone Hcl Inj (*Crx) 1 Mg/Ml Syr IV PUSH Q2H PRN Breakthrough Pain Rated 7-10 or NPO Hydromorphone HCl 0.5 mg 06/02/25 16:50 Hydromorphone Hcl Inj (*Crx) 1 Mg/Ml Syr IV PUSH Q2H PRN Breakthrough Pain Rated 4-6 or NPO Dextrose 1,000 mls @ 100 mls/hr 05/29/25 20:44 Dextrose 5% 1,000 Ml IVPB PRN PRN Hypoglycemia Protocol Dextrose 1,000 mls @ 75 mls/hr 05/31/25 09:15 06/03/25 07:02 Dextrose 5% 1,000 Ml IV CONT 75 mls/hr .[id number] ANDRÉS Administration Albumin Human 50 mls @ 999 mls/hr 05/31/25 15:12 Albutein IVPB 06/30/25 15:11 Q10M PRN HYPOTENSION Losartan Potassium 50 mg 06/02/25 09:00 06/03/25 08:55 Losartan Potassium 25 Mg Tablet PO 50 mg [id number] ANDRÉS Administration Naloxone HCl 0.1 mg 06/02/25 16:50 Naloxone Hcl 0.4 Mg/Ml Vial IV PUSH Q2M PRN Opiate Reversal Nifedipine 60 mg 06/01/25 21:00 06/02/25 21:32 Nifedipine 30 Mg Tab.Er.24 PO 60 mg HS ANDRÉS Administration Ondansetron HCl 4 mg 05/29/25 20:44 06/03/25 13:22 Ondansetron Inj 4 Mg/2 Ml Vial IV PUSH 4 mg Q4H PRN Administration Nausea Phenol 1 spray 05/30/25 06:22 05/30/25 18:57 Phenol/Sod Pheno [place] [facility] (*Bkc) MUCOUS MEM 1 spray PRN PRN Administration Sore Throat Trazodone HCl 50 mg 05/31/25 13:29 06/01/25 22:16 Trazodone Hcl 50 Mg Tablet PO 50 mg HS PRN Administration Insomnia Radiology Results: ITS Impressions Abdomen/Pelvis CT 05/29/25 19:10 IMPRESSION: Right double-J ureteral stent is noted. There is mild right hydronephrosis. The left kidneys atrophy. There is fluid filled distended small bowel loops with multiple air-fluid levels may represent partial to early small bowel obstruction. All CT scans at this facility are performed using low dose modulation techniques as appropriate to perform exam including the following: automated exposure control; use of iterative reconstruction technique; adjustment of the mA and/or kV according to patient size (this includes techniques or standardized protocols for targeted exams where dose is matched to indication/reason for exam). Small Bowel X-Ray 06/01/25 15:30 IMPRESSION: 1. Likely intermittent or partial small bowel obstruction in the distal ileum with transit time to the colon of between 3-4 hours. 2. Multiple postoperative changes in the abdomen and pelvis as detailed above. Carotid Doppler Study 06/01/25 21:01 IMPRESSION: 1. 50-69% stenosis in the right internal carotid artery by sonographic criteria. 2. Greater than or equal to 70% stenosis in the left internal carotid artery by sonographic criteria. Central Venous Line 06/02/25 15:30 IMPRESSION: Fluoroscopy used during central line placement. Chest X-Ray 06/02/25 16:27 Impression: Line placement as above. Probable early right lower lobe pneumonia Abdomen X-Ray 06/03/25 08:23 IMPRESSION: 1. Advancement of oral contrast now predominantly within the colon but with residual dilute contrast within the persistently dilated loop of small bowel in the right lower quadrant consistent with persistent intermittent versus partial obstruction. Labs Labs: Laboratory Results - last 24 hr 06/03/25 06/03/25 06/03/25 00:48 06:58 11:30 POC Capillary Glucose 135 H 94 118 H
--- NOTE | 2025-06-03 14:51 | P.PNGS_ITS ---
Progress Note: A&P Assessment and Plan (1) Mechanical complication of central venous catheter (CVC): Code(s): T82.594A - Other mechanical complication of infusion catheter, initial encounter Status: Resolved Assessment and Plan: New tunneled central venous catheter for dialysis placed yesterday afternoon, right internal jugular vein. Working well. (2) End-stage renal disease on hemodialysis: Code(s): N18.6 - End stage renal disease; Z99.2 - Dependence on renal dialysis Status: Chronic Assessment and Plan: Dialyzed yesterday evening (3) Partial small bowel obstruction: Code(s): K56.600 - Partial intestinal obstruction, unspecified as to cause Status: Acute Assessment and Plan: Recurrent and persistent. I would recommend patient have laparotomy except that she has severe carotid stenosis especially on the L ICA. She has multiple comorbid conditions particularly emphysema, end-stage renal disease, and malnutrition. As noted yesterday, patient needs to transfer to [facility] where she has seen several doctors in the past including oncologist who are managing her neuroendocrine tumor and her lung cancer. I really do not have anything I can do for her at this time. If she does start vomiting I would recommend placing a nasogastric tube. The octreotide she takes p.r.n. may be helpful for the diarrhea. I will follow her peripherally but recommend transfer as soon as feasible. 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 Has p.r.n. octreotide ordered as this tumor may be causing her diarrhea. (5) Lung nodule: Code(s): R91.1 - Solitary pulmonary nodule Status: Chronic Assessment and Plan: Daughter confirms this was actually lung cancer and she follows with an oncologist at [facility] for this. Subjective Subjective Date/Time Seen: 06/03/25 14:51 Patient reports: still having pain, diarrhea, nausea and afebrile Interval history: Dialysis catheter worked well yesterday evening. Patient dialyzed although she has no recollection of doing so. She was confused this morning in her room. She continues to have numerous loose bowel movements but can not eat due to nausea. Review of Systems Review of Systems: All systems reviewed & are unremarkable except as noted in HPI and below (HPI) Exam Const: General: cooperative, comfortable (A little more perky as her daughter is visiting her now), alert, awake and underweight Orientation/consciousness: No confusion GI: Inspection: non-distended, scaphoid and scar GI Palp: Yes Firmness to palpation present (GI), Yes Tenderness to palpation present (GI) (Diffusely tender, more in the RLQ where mesh hernia repair palpable.), No Guarding due to palpation present (GI), No Hernia present, No Ascites present and No Rebound tenderness present Objective Data Vital Signs Vital Signs: Vital Signs - 24 hr 06/02/25 15:44 06/02/25 15:55 06/02/25 16:10 Temperature 36.3 C L Pulse Rate 71 81 75 Respiratory Rate 20 20 16 Blood Pressure 110/62 146/60 H 136/67 Pulse Oximetry 92 95 99 Oxygen Delivery Room Air Nasal Cannula Nasal Cannula Oxygen Flow Rate 2 2 06/02/25 16:25 06/02/25 16:40 06/02/25 17:01 Temperature 36.5 C Pulse Rate 92 83 84 Respiratory Rate 14 12 12 Blood Pressure 135/87 117/69 110/62 Pulse Oximetry 99 100 100 Oxygen Delivery Nasal Cannula Nasal Cannula Oxygen Flow Rate 2 2 06/02/25 17:09 06/02/25 17:09 06/02/25 17:15 Temperature Pulse Rate 77 69 Respiratory Rate Blood Pressure 114/64 174/67 H Pulse Oximetry Oxygen Delivery Oxygen Flow Rate 2 06/02/25 17:30 06/02/25 17:39 06/02/25 17:45 Temperature Pulse Rate 64 80 77 Respiratory Rate Blood Pressure 86/56 L 98/60 L 101/57 L Pulse Oximetry Oxygen Delivery Oxygen Flow Rate 06/02/25 18:00 06/02/25 18:15 06/02/25 18:30 Temperature Pulse Rate 79 80 83 Respiratory Rate Blood Pressure 102/60 94/59 L 103/63 Pulse Oximetry Oxygen Delivery Oxygen Flow Rate 06/02/25 18:45 06/02/25 19:00 06/02/25 19:15 Temperature Pulse Rate 86 88 90 Respiratory Rate Blood Pressure 116/64 117/65 97/66 L Pulse Oximetry Oxygen Delivery Oxygen Flow Rate 06/02/25 19:30 06/02/25 19:45 06/02/25 20:00 Temperature Pulse Rate 71 81 79 Respiratory Rate Blood Pressure 110/63 130/62 90/63 L Pulse Oximetry Oxygen Delivery Oxygen Flow Rate 06/02/25 20:00 06/02/25 20:09 06/02/25 20:17 Temperature 35.7 C L Pulse Rate 80 82 81 Respiratory Rate 16 Blood Pressure 90/60 L 143/67 H Pulse Oximetry 100 Oxygen Delivery Oxygen Flow Rate 06/02/25 21:33 06/02/25 22:19 06/03/25 00:00 Temperature 36.8 C Pulse Rate 72 60 Respiratory Rate 16 Blood Pressure 152/67 H Pulse Oximetry 100 100 Oxygen Delivery Nasal Cannula Oxygen Flow Rate 2 06/03/25 00:36 06/03/25 04:00 06/03/25 06:00 Temperature 36.9 C 36.6 C Pulse Rate 75 64 73 Respiratory Rate 16 18 Blood Pressure 149/71 H 166/76 H Pulse Oximetry 99 99 Oxygen Delivery Oxygen Flow Rate 06/03/25 08:00 06/03/25 08:00 06/03/25 08:12 Temperature 36.6 C Pulse Rate 68 68 68 Respiratory Rate 16 Blood Pressure 166/66 H Pulse Oximetry 99 100 Oxygen Delivery Room Air Oxygen Flow Rate 06/03/25 09:58 06/03/25 14:00 Temperature 36.7 C Pulse Rate 69 Respiratory Rate 16 Blood Pressure 156/62 H Pulse Oximetry 100 Oxygen Delivery Room Air Oxygen Flow Rate Intake/Output Intake/Output: Intake & Output 05/31/25 06/01/25 06/02/25 06/03/25 22:59 23:59 23:59 23:59 Intake Total 300 3039.0 2740 0 Output Total 550 6850 100 Balance -250 -3811.0 2640 0 Meds/Results Medications: Active Medications Generic Name Dose Route Start Last Admin Trade Name Freq PRN Reason Stop Dose Admin Acetaminophen 500 mg 06/02/25 16:50 Acetaminophen 500 Mg Tablet PO Q6H PRN Pain Rated 1-3 Albuterol 2.5 mg 05/30/25 06:49 Albuterol Sulfate Neb 2.5 Mg/3 Ml Inh INHALATION Q4HRT PRN Shortness Of Breath Clonazepam 0.5 mg 05/31/25 13:27 06/01/25 22:16 Clonazepam (*Crx) 0.5 Mg Tablet PO 0.5 mg BID PRN Administration Anxiety Clonidine HCl 1 patch 05/31/25 09:00 05/31/25 08:23 Clonidine 0.2 Mg/24 Hr Patch TRANSDERM 1 patch WEEKLY ANDRÉS Administration Dextrose 12.5 gm 05/29/25 20:44 05/31/25 05:24 Dextrose 50% 25 Gm/50 Ml Syringe IV PUSH 12.5 gm PRN PRN Administration Hypoglycemia Protocol Gabapentin 300 mg 05/31/25 21:00 06/02/25 21:33 Gabapentin 300 Mg Capsule PO 300 mg HS ANDRÉS Administration Glucagon 1 mg 05/29/25 20:44 05/30/25 07:09 Glucagon For Inj 1 Mg Vial IM 1 mg PRN PRN Administration Hypoglycemia Protocol Glucose 15 gm 05/29/25 20:44 Glucose Oral Gel 15 Gm Of Glucse In 37.5 Gm Tube PO PRN PRN Hypoglycemia Protocol Heparin Sodium (Porcine) 5,000 units 06/01/25 14:00 06/03/25 13:15 Heparin Sodium 5,000 Units/Ml Vial SUB-Q 5,000 units Q8HR ANDRÉS Administration Hydralazine HCl 75 mg 06/01/25 09:00 06/03/25 13:15 Hydralazine Hcl 25 Mg Tablet PO 75 mg TID ANDRÉS Administration Hydromorphone HCl 1 mg 06/02/25 16:50 Hydromorphone Hcl Inj (*Crx) 1 Mg/Ml Syr IV PUSH Q2H PRN Breakthrough Pain Rated 7-10 or NPO Hydromorphone HCl 0.5 mg 06/02/25 16:50 Hydromorphone Hcl Inj (*Crx) 1 Mg/Ml Syr IV PUSH Q2H PRN Breakthrough Pain Rated 4-6 or NPO Dextrose 1,000 mls @ 100 mls/hr 05/29/25 20:44 Dextrose 5% 1,000 Ml IVPB PRN PRN Hypoglycemia Protocol Dextrose 1,000 mls @ 75 mls/hr 05/31/25 09:15 06/03/25 07:02 Dextrose 5% 1,000 Ml IV CONT 75 mls/hr .[id number] ANDRÉS Administration Albumin Human 50 mls @ 999 mls/hr 05/31/25 15:12 Albutein IVPB 06/30/25 15:11 Q10M PRN HYPOTENSION Losartan Potassium 50 mg 06/02/25 09:00 06/03/25 08:55 Losartan Potassium 25 Mg Tablet PO 50 mg [id number] ANDRÉS Administration Naloxone HCl 0.1 mg 06/02/25 16:50 Naloxone Hcl 0.4 Mg/Ml Vial IV PUSH Q2M PRN Opiate Reversal Nifedipine 60 mg 06/01/25 21:00 06/02/25 21:32 Nifedipine 30 Mg Tab.Er.24 PO 60 mg HS ANDRÉS Administration Ondansetron HCl 4 mg 05/29/25 20:44 06/03/25 13:22 Ondansetron Inj 4 Mg/2 Ml Vial IV PUSH 4 mg Q4H PRN Administration Nausea Phenol 1 spray 05/30/25 06:22 05/30/25 18:57 Phenol/Sod Pheno [place] [facility] (*Bkc) MUCOUS MEM 1 spray PRN PRN Administration Sore Throat Trazodone HCl 50 mg 05/31/25 13:29 06/01/25 22:16 Trazodone Hcl 50 Mg Tablet PO 50 mg HS PRN Administration Insomnia Radiology Results: ITS Impressions Abdomen/Pelvis CT 05/29/25 19:10 IMPRESSION: Right double-J ureteral stent is noted. There is mild right hydronephrosis. The left kidneys atrophy. There is fluid filled distended small bowel loops with multiple air-fluid levels may represent partial to early small bowel obstruction. All CT scans at this facility are performed using low dose modulation techniques as appropriate to perform exam including the following: automated exposure control; use of iterative reconstruction technique; adjustment of the mA and/or kV according to patient size (this includes techniques or standardized protocols for targeted exams where dose is matched to indication/reason for exam). Small Bowel X-Ray 06/01/25 15:30 IMPRESSION: 1. Likely intermittent or partial small bowel obstruction in the distal ileum with transit time to the colon of between 3-4 hours. 2. Multiple postoperative changes in the abdomen and pelvis as detailed above. Carotid Doppler Study 06/01/25 21:01 IMPRESSION: 1. 50-69% stenosis in the right internal carotid artery by sonographic criteria. 2. Greater than or equal to 70% stenosis in the left internal carotid artery by sonographic criteria. Central Venous Line 06/02/25 15:30 IMPRESSION: Fluoroscopy used during central line placement. Chest X-Ray 06/02/25 16:27 Impression: Line placement as above. Probable early right lower lobe pneumonia Abdomen X-Ray 06/03/25 08:23 IMPRESSION: 1. Advancement of oral contrast now predominantly within the colon but with residual dilute contrast within the persistently dilated loop of small bowel in the right lower quadrant consistent with persistent intermittent versus partial obstruction. Labs Labs: Laboratory Results - last 24 hr 06/03/25 06/03/25 06/03/25 00:48 06:58 11:30 POC Capillary Glucose 135 H 94 118 H Imaging Attestation: I personally reviewed and interpreted this imaging study as follows: (Abdominal plain film from this morning) My impression: Dilated loops of bowel in the right lower quadrant Radiologist's impression: Abdomen X-Ray 06/03/25 08:23
--- NOTE | 2025-06-03 16:14 | P.PNIM_ITS ---
Progress Note: A&P Assessment and Plan (1) Small bowel obstruction: Code(s): K56.609 - Unspecified intestinal obstruction, unspecified as to partial versus complete obstruction Status: Acute (2) End-stage renal disease on hemodialysis: Code(s): N18.6 - End stage renal disease; Z99.2 - Dependence on renal dialysis Status: Chronic (3) UTI (urinary tract infection): Code(s): N39.0 - Urinary tract infection, site not specified Status: Suspected (4) Pneumonia: Qualifiers: Laterality: bilateral Lung location: unspecified part of lung Pneumonia type: due to unspecified organism Qualified Code(s): J18.9 - Pneumonia, unspecified organism Code(s): J18.9 - Pneumonia, unspecified organism Status: Acute (5) Essential hypertension: Code(s): I10 - Essential (primary) hypertension Status: Chronic Plan 70-year-old female with past medical history of hypertension, end-stage renal disease on dialysis presented with not feeling well, generalized weakness. Patient has history of multiple abdominal surgeries, small bowel obstruction. CT abdomen pelvis showed fluid filled distended small bowel loops with multiple air-fluid levels may represent partial to early small bowel obstruction. Chest x-ray was suggestive of bilateral pneumonia. 1. Small-bowel obstruction: Status post NG tube removal Small-bowel follow-through shows partial obstruction Surgery following, appreciate rec Tolerating p.o. meds with sips Supplement potassium Had bowel movement x2 Surgery would like to operate as soon as possible however history of carotid stenosis, end-stage renal disease and general comorbidities are very high risk for patient. As such, surgery service prefer the patient be transferred to [facility] for operative management given she has surgeons there she is being seen there and can be seen by vascular they are to treat carotid stenosis. When this was discussed with the patient she declined to transferring says she wants to go home before going to another hospital. Given the acute nature of her symptoms this is not feasible at this time. Will discuss with patient and family in regards to best next steps: Transferred to [facility], transferred to hospice, discharged home against medical advice. 2. Multifocal pneumonia: Patient in room air Completed azithromycin Completed ceftriaxone 3. UTI ruled out, urine culture has been negative 4. End-stage renal disease on dialysis: Nephrology following Dialysis as per Renal Supplement potassium today 5. Hypertension: Resume home dose hydralazine, losartan, nifedipine Continue with clonidine patch 6. Recent hypoglycemia: Due to NPO status Continue with D5 until NPO Blood glucose check q.6 hours for now 7. Code status: Full 8. DVT prophylaxis: Heparin subQ 9. Disposition: Transferred to other hospital unless patient declines and wants to go to hospice or home Time Spent With Patient Time: 40 minutes Subjective Date/time seen: 06/03/25 16:14 Interval history: This is a 70-year-old female patient to has a history of endocrine he answer in her intestine. The patient presented via EMS with complaints of weakness. She has been feeling ill over the last 3 days. She does have end-stage renal disease and has dialysis on Mondays and Fridays. The patient did not go to dialysis on Sunday. She at has been having some nausea vomiting was having di fficulty keeping any oral substance in her system. The patient had been constipated for 3-4 days. The patie her magnesium was high at 2.4. Nt has a history of having multiple abdominal surgery he has and has had a small bowel obstruction in the past. She denies any cough for fever chills. She denies any urinary symptoms. Abnormal labs sodium 123, BUN 42, creatinine 3.8, and GF are 12. Abdominal CT was read as a followingRight double-J ureteral stent is noted. There is mild right hydronephrosis. The left kidneys atrophy. There is fluid filled distended small bowel loops with multiple air-fluid levels may represent partial to early small bowel obstruction.chest x ray read as bilateral pneumonia. Urine results 3+ leukocyte esterase, urine RBC 3-5, urine wbc's 51-100. The patient has been started on a Zithromax and Rocephin. The NG tube was placed in the emergency room. Nephrology as well as surgery have been consulted from the emergency room. The patient is being admitted at as observation status on the date of service of 05/30/2025. Review of Systems Review of Systems: All systems reviewed & are unremarkable except as noted in HPI and below (HPI) Exam Const: General: cooperative, comfortable, alert, awake and underweight Orientation/consciousness: No confusion GI: Inspection: non-distended, scaphoid and scar GI Palp: Yes Firmness to palpation present (GI), Yes Tenderness to palpation present (GI) (Diffusely tender, more in the RLQ where mesh hernia repair palpable.), No Guarding due to palpation present (GI), No Hernia present, No Ascites present and No Rebound tenderness present Objective Data Vital Signs Vital Signs: Vital Signs - 24 hr 06/02/25 16:25 06/02/25 16:40 06/02/25 17:01 Temperature 97.7 F Pulse Rate 92 83 84 Respiratory Rate 14 12 12 Blood Pressure 135/87 117/69 110/62 Pulse Oximetry 99 100 100 Oxygen Delivery Nasal Cannula Nasal Cannula Oxygen Flow Rate 2 2 06/02/25 17:09 06/02/25 17:09 06/02/25 17:15 Temperature Pulse Rate 77 69 Respiratory Rate Blood Pressure 114/64 174/67 H Pulse Oximetry Oxygen Delivery Oxygen Flow Rate 2 06/02/25 17:30 06/02/25 17:39 06/02/25 17:45 Temperature Pulse Rate 64 80 77 Respiratory Rate Blood Pressure 86/56 L 98/60 L 101/57 L Pulse Oximetry Oxygen Delivery Oxygen Flow Rate 06/02/25 18:00 06/02/25 18:15 06/02/25 18:30 Temperature Pulse Rate 79 80 83 Respiratory Rate Blood Pressure 102/60 94/59 L 103/63 Pulse Oximetry Oxygen Delivery Oxygen Flow Rate 06/02/25 18:45 06/02/25 19:00 06/02/25 19:15 Temperature Pulse Rate 86 88 90 Respiratory Rate Blood Pressure 116/64 117/65 97/66 L Pulse Oximetry Oxygen Delivery Oxygen Flow Rate 06/02/25 19:30 06/02/25 19:45 06/02/25 20:00 Temperature Pulse Rate 71 81 79 Respiratory Rate Blood Pressure 110/63 130/62 90/63 L Pulse Oximetry Oxygen Delivery Oxygen Flow Rate 06/02/25 20:00 06/02/25 20:09 06/02/25 20:17 Temperature 96.3 F L Pulse Rate 80 82 81 Respiratory Rate 16 Blood Pressure 90/60 L 143/67 H Pulse Oximetry 100 Oxygen Delivery Oxygen Flow Rate 06/02/25 21:33 06/02/25 22:19 06/03/25 00:00 Temperature 98.2 F Pulse Rate 72 60 Respiratory Rate 16 Blood Pressure 152/67 H Pulse Oximetry 100 100 Oxygen Delivery Nasal Cannula Oxygen Flow Rate 2 06/03/25 00:36 06/03/25 04:00 06/03/25 06:00 Temperature 98.4 F 97.9 F Pulse Rate 75 64 73 Respiratory Rate 16 18 Blood Pressure 149/71 H 166/76 H Pulse Oximetry 99 99 Oxygen Delivery Oxygen Flow Rate 06/03/25 08:00 06/03/25 08:00 06/03/25 08:12 Temperature 97.8 F Pulse Rate 68 68 68 Respiratory Rate 16 Blood Pressure 166/66 H Pulse Oximetry 99 100 Oxygen Delivery Room Air Oxygen Flow Rate 06/03/25 09:58 06/03/25 12:00 06/03/25 14:00 Temperature 98.1 F Pulse Rate 68 69 Respiratory Rate 16 Blood Pressure 156/62 H Pulse Oximetry 100 Oxygen Delivery Room Air Oxygen Flow Rate Intake/Output Intake/Output: Intake & Output 05/31/25 06/01/25 06/02/25 06/03/25 22:59 23:59 23:59 23:59 Intake Total 300 3039.0 2740 120 Output Total 550 6850 100 Balance -250 -3811.0 2640 120 Meds/Results Medications: Active Medications Generic Name Dose Route Start Last Admin Trade Name Freq PRN Reason Stop Dose Admin Acetaminophen 500 mg 06/02/25 16:50 Acetaminophen 500 Mg Tablet PO Q6H PRN Pain Rated 1-3 Albuterol 2.5 mg 05/30/25 06:49 Albuterol Sulfate Neb 2.5 Mg/3 Ml Inh INHALATION Q4HRT PRN Shortness Of Breath Clonazepam 0.5 mg 05/31/25 13:27 06/01/25 22:16 Clonazepam (*Crx) 0.5 Mg Tablet PO 0.5 mg BID PRN Administration Anxiety Clonidine HCl 1 patch 05/31/25 09:00 05/31/25 08:23 Clonidine 0.2 Mg/24 Hr Patch TRANSDERM 1 patch WEEKLY ANDRÉS Administration Dextrose 12.5 gm 05/29/25 20:44 05/31/25 05:24 Dextrose 50% 25 Gm/50 Ml Syringe IV PUSH 12.5 gm PRN PRN Administration Hypoglycemia Protocol Gabapentin 300 mg 05/31/25 21:00 06/02/25 21:33 Gabapentin 300 Mg Capsule PO 300 mg HS ANDRÉS Administration Glucagon 1 mg 05/29/25 20:44 05/30/25 07:09 Glucagon For Inj 1 Mg Vial IM 1 mg PRN PRN Administration Hypoglycemia Protocol Glucose 15 gm 05/29/25 20:44 Glucose Oral Gel 15 Gm Of Glucse In 37.5 Gm Tube PO PRN PRN Hypoglycemia Protocol Heparin Sodium (Porcine) 5,000 units 06/01/25 14:00 06/03/25 13:15 Heparin Sodium 5,000 Units/Ml Vial SUB-Q 5,000 units Q8HR ANDRÉS Administration Hydralazine HCl 75 mg 06/01/25 09:00 06/03/25 13:15 Hydralazine Hcl 25 Mg Tablet PO 75 mg TID ANDRÉS Administration Hydromorphone HCl 1 mg 06/02/25 16:50 Hydromorphone Hcl Inj (*Crx) 1 Mg/Ml Syr IV PUSH Q2H PRN Breakthrough Pain Rated 7-10 or NPO Hydromorphone HCl 0.5 mg 06/02/25 16:50 Hydromorphone Hcl Inj (*Crx) 1 Mg/Ml Syr IV PUSH Q2H PRN Breakthrough Pain Rated 4-6 or NPO Dextrose 1,000 mls @ 100 mls/hr 05/29/25 20:44 Dextrose 5% 1,000 Ml IVPB PRN PRN Hypoglycemia Protocol Dextrose 1,000 mls @ 75 mls/hr 05/31/25 09:15 06/03/25 07:02 Dextrose 5% 1,000 Ml IV CONT 75 mls/hr .[id number] ANDRÉS Administration Albumin Human 50 mls @ 999 mls/hr 05/31/25 15:12 Albutein IVPB 06/30/25 15:11 Q10M PRN HYPOTENSION Losartan Potassium 50 mg 06/02/25 09:00 06/03/25 08:55 Losartan Potassium 25 Mg Tablet PO 50 mg [id number] ANDRÉS Administration Naloxone HCl 0.1 mg 06/02/25 16:50 Naloxone Hcl 0.4 Mg/Ml Vial IV PUSH Q2M PRN Opiate Reversal Nifedipine 60 mg 06/01/25 21:00 06/02/25 21:32 Nifedipine 30 Mg Tab.Er.24 PO 60 mg HS ANDRÉS Administration Ondansetron HCl 4 mg 05/29/25 20:44 06/03/25 13:22 Ondansetron Inj 4 Mg/2 Ml Vial IV PUSH 4 mg Q4H PRN Administration Nausea Phenol 1 spray 05/30/25 06:22 05/30/25 18:57 Phenol/Sod Pheno [place] (*Bkc) MUCOUS MEM 1 spray PRN PRN Administration Sore Throat Trazodone HCl 50 mg 05/31/25 13:29 06/01/25 22:16 Trazodone Hcl 50 Mg Tablet PO 50 mg HS PRN Administration Insomnia Radiology Results: ITS Impressions Abdomen/Pelvis CT 05/29/25 19:10 IMPRESSION: Right double-J ureteral stent is noted. There is mild right hydronephrosis. The left kidneys atrophy. There is fluid filled distended small bowel loops with multiple air-fluid levels may represent partial to early small bowel obstruction. All CT scans at this facility are performed using low dose modulation techniques as appropriate to perform exam including the following: automated exposure control; use of iterative reconstruction technique; adjustment of the mA and/or kV according to patient size (this includes techniques or standardized protocols for targeted exams where dose is matched to indication/reason for exam). Small Bowel X-Ray 06/01/25 15:30 IMPRESSION: 1. Likely intermittent or partial small bowel obstruction in the distal ileum with transit time to the colon of between 3-4 hours. 2. Multiple postoperative changes in the abdomen and pelvis as detailed above. Carotid Doppler Study 06/01/25 21:01 IMPRESSION: 1. 50-69% stenosis in the right internal carotid artery by sonographic criteria. 2. Greater than or equal to 70% stenosis in the left internal carotid artery by sonographic criteria. Central Venous Line 06/02/25 15:30 IMPRESSION: Fluoroscopy used during central line placement. Chest X-Ray 06/02/25 16:27 Impression: Line placement as above. Probable early right lower lobe pneumonia Abdomen X-Ray 06/03/25 08:23 IMPRESSION: 1. Advancement of oral contrast now predominantly within the colon but with residual dilute contrast within the persistently dilated loop of small bowel in the right lower quadrant consistent with persistent intermittent versus partial obstruction. Labs Labs: Laboratory Results - last 24 hr 06/03/25 06/03/25 06/03/25 00:48 06:58 11:30 POC Capillary Glucose 135 H 94 118 H Hospitalist MIPS Advance Care Plan I have confirmed that the patient's Advanced Care Plan is present, code status is documented, or surrogate decision maker is listed in patient medical record.: Yes Medication Reconciliation I have utilized all available resources to obtain, update and review the patients current medications (includes all prescriptions, OTC, herbals, cannabis, and nutritional supplements).: Yes
[2025-06-03] MEDS: GABAPENTIN 300 MG CAPSULE PO (21:51)
--- NOTE | 2025-06-03 22:01 | PC.NURSE ---
[facility] called, gave updated VS, they still don't have a bed on the oncology floor.
[2025-06-04] VITALS (22 sets, daily range): BP systolic 154–212; BP diastolic 59–84; PULSE 67–81; RESP 14–18; TEMP 36.3–37; O2SAT 99–100
[2025-06-04] MEDS: HYDROmorphone HCL INJ (*CRX) 1 MG/ML SYR 0.5 MG IV PUSH (00:34)
[2025-06-04 06:25] LABS: Alanine Aminotransferase 8 U/L (6-35); Albumin Level 3.0 g/dL (3.5-5.1); Alkaline Phosphatase 53 U/L (38-126); Anion Gap 2 mmol/L (4-12); Aspartate Amino Transferase 30 U/L (14-36); Bilirubin,Total 0.3 mg/dL (0.2-1.3); Blood Urea Nitrogen 20 mg/dL (7-17); Calcium 9.7 mg/dL (8.4-10.2); Carbon Dioxide 29 mmol/L (22-30); Chloride 90 mmol/L (98-107); Estimated CRCL calculation 11 ml/min; Estimated Glomerular Filt Rate 16; Glucose 113 mg/dL (65-110); Potassium 3.4 mmol/L (3.4-5.0); Sodium 121 mmol/L (137-145); Total Protein 5.6 g/dL (6.3-8.2)
[2025-06-04 08:10] LABS: Hematocrit 34.0 % (37.0-47.0); Hemoglobin 10.7 g/dL (12.0-15.0); Immature Granulocyte Percent A 0.3 % (0-0.5); Immature Platelet Fraction Pct 8.9 % (0.9-11.2); Lymphocytes Absolute Auto 0.77 K/mm3 (0.9-3.2); Mean Corpuscular HGB Conc 31.5 g/dl (32-36); Mean Corpuscular Hemoglobin 27.6 pg (26-34); Mean Corpuscular Volume 87.6 fl (80-100); Nucleated Red Blood Cells Absolute Auto 0.000 K/mm3 (0.0-0.012); Nucleated Red Blood Cells Perc 0.0 % (0.0-0.2); Platelet Count Result 90 k/mm3 (150-375); Red Blood Count 3.88 M/mm3 (4.2-5.4); White Blood Count 7.0 K/mm3 (4.5-10.0)
[2025-06-04] MEDS: DEXTROSE 5%/0.9% SOD CHL 1,000 ML 75 ML IV CONT (09:50)
--- NOTE | 2025-06-04 10:58 | PCNFU ---
Nutrition Follow-Up Complete: Inadequate energy intake related to current diet order as evidenced by NPO status Diet order - Slow progress with goal. Continue with goal Goal: Pt current nutrition is Clear liquid, renal diet. Nutrition recommendation: No new recommendations. Continue to advance diet per MD Last recorded weight is 43.3 kg. Bowel Motility: +4 BMs 06/03, +1 BM 06/04 Labs Reviewed: Hgb 10.7, Hct 34, Alb 3.0, Na 121, BUN 20, Cre 2.83 Meds Noted: D5, Zofran Skin: New pressure injury: Deep tissue injury to sacrum. Not able to address with Dimitris because of current diet orders. Additional Notes: Clear liquids diet, 0-25%. Refused breakfast. Plan to transfer patient to [facility]. Continue to follow. Monitor for diet orders, intake, tolerance, wt, labs. Follow up in 3 days.
--- NOTE | 2025-06-04 13:30 | PCPTNOTE ---
Attempted to see patient for PT, however patient declined due to not feeling well this date.
[2025-06-04 15:19] LABS: Sodium 119 mmol/L (137-145)
--- NOTE | 2025-06-04 15:54 | PM.IMPN ---
Progress Note: A&P Assessment and Plan (1) Small bowel obstruction: Code(s): K56.609 - Unspecified intestinal obstruction, unspecified as to partial versus complete obstruction Status: Acute (2) End-stage renal disease on hemodialysis: Code(s): N18.6 - End stage renal disease; Z99.2 - Dependence on renal dialysis Status: Chronic (3) UTI (urinary tract infection): Code(s): N39.0 - Urinary tract infection, site not specified Status: Suspected (4) Pneumonia: Qualifiers: Laterality: bilateral Lung location: unspecified part of lung Pneumonia type: due to unspecified organism Qualified Code(s): J18.9 - Pneumonia, unspecified organism Code(s): J18.9 - Pneumonia, unspecified organism Status: Acute (5) Essential hypertension: Code(s): I10 - Essential (primary) hypertension Status: Chronic Plan 70-year-old female with past medical history of hypertension, end-stage renal disease on dialysis presented with not feeling well, generalized weakness. Patient has history of multiple abdominal surgeries, small bowel obstruction. CT abdomen pelvis showed fluid filled distended small bowel loops with multiple air-fluid levels may represent partial to early small bowel obstruction. Chest x-ray was suggestive of bilateral pneumonia. 1. Small-bowel obstruction: Status post NG tube removal Small-bowel follow-through shows partial obstruction Surgery following, appreciate rec Tolerating p.o. meds with sips Supplement potassium Had bowel movement x2 Surgery would like to operate as soon as possible however history of carotid stenosis, end-stage renal disease and general comorbidities are very high risk for patient. As such, surgery service prefer the patient be transferred to [facility] for operative management given she has surgeons there she is being seen there and can be seen by vascular they are to treat carotid stenosis. When this was discussed with the patient she declined to transferring says she wants to go home before going to another hospital. Given the acute nature of her symptoms this is not feasible at this time. Will discuss with patient and family in regards to best next steps: Transferred to [facility], transferred to hospice, discharged home against medical advice. Patient ultimately agreed for transfer and [facility] agreed to accept patient. Was informed by [facility] bed is available however due to acute need for dialysis will be held for patient as she undergoes dialysis today. 2. Multifocal pneumonia: Patient in room air Completed azithromycin Completed ceftriaxone 3. UTI ruled out, urine culture has been negative 4. End-stage renal disease on dialysis: Nephrology following Dialysis as per Renal Supplement potassium today 5. Hypertension: Resume home dose hydralazine, losartan, nifedipine Continue with clonidine patch Significant elevations in blood pressure today, patient will receive dialysis today to assist with this 6. Recent hypoglycemia: Due to NPO status Continue with D5 until NPO Blood glucose check q.6 hours for now 7. Hyponatremia Sodium reduced from 129-121, then 119 D5 water was used to D5 NS Discussed with renal, patient will go for dialysis today to assist with sodium levels Mental status has been slightly reduced compared to yesterday, likely due to a decrease in sodium Patient will be transferred to [facility] after dialysis 7. Code status: Full 8. DVT prophylaxis: Heparin subQ 9. Disposition: Transferred to other hospital unless patient declines and wants to go to hospice or home Time Spent With Patient Time: 40 minutes Subjective Date/time seen: 06/04/25 15:54 Interval history: This is a 70-year-old female patient to has a history of endocrine he answer in her intestine. The patient presented via EMS with complaints of weakness. She has been feeling ill over the last 3 days. She does have end-stage renal disease and has dialysis on Mondays and Fridays. The patient did not go to dialysis on Sunday. She at has been having some nausea vomiting was having difficulty keeping any oral substance in her system. The patient had been constipated for 3-4 days. The patie her magnesium was high at 2.4. Nt has a history of having multiple abdominal surgery he has and has had a small bowel obstruction in the past. She denies any cough for fever chills. She denies any urinary symptoms. Abnormal labs sodium 123, BUN 42, creatinine 3.8, and GF are 12. Abdominal CT was read as a followingRight double-J ureteral stent is noted. There is mild right hydronephrosis. The left kidneys atrophy. There is fluid filled distended small bowel loops with multiple air-fluid levels may represent partial to early small bowel obstruction.chest x ray read as bilateral pneumonia. Urine results 3+ leukocyte esterase, urine RBC 3-5, urine wbc's 51-100. The patient has been started on a Zithromax and Rocephin. The NG tube was placed in the emergency room. Nephrology as well as surgery have been consulted from the emergency room. The patient is being admitted at as observation status on the date of service of 05/30/2025. Review of Systems Review of Systems: All systems reviewed & are unremarkable except as noted in HPI and below (HPI) Exam Const: General: cooperative, comfortable and underweight Orientation/consciousness: No confusion Other: Slightly decreased mental status however AAO x3 GI: Inspection: non-distended, scaphoid and scar GI Palp: Yes Firmness to palpation present (GI), Yes Tenderness to palpation present (GI) (Diffusely tender, more in the RLQ where mesh hernia repair palpable.), No Guarding due to palpation present (GI), No Hernia present, No Ascites present and No Rebound tenderness present Objective Data Vital Signs Vital Signs: Vital Signs - 24 hr 06/03/25 16:00 06/03/25 20:00 06/03/25 21:51 Temperature 97.9 F Pulse Rate 73 84 79 Respiratory Rate 18 Blood Pressure 185/77 H Pulse Oximetry 99 Oxygen Delivery 06/03/25 22:01 06/03/25 23:04 06/04/25 00:00 Temperature Pulse Rate 79 Respiratory Rate Blood Pressure Pulse Oximetry 99 Oxygen Delivery Room Air Room Air 06/04/25 04:00 06/04/25 06:00 06/04/25 09:15 Temperature 97.7 F Pulse Rate 72 72 67 Respiratory Rate 14 Blood Pressure 155/75 H Pulse Oximetry 99 Oxygen Delivery 06/04/25 14:00 Temperature 98.1 F Pulse Rate 71 Respiratory Rate 18 Blood Pressure 187/59 H Pulse Oximetry 100 Oxygen Delivery Intake/Output Intake/Output: Intake & Output 06/01/25 06/02/25 06/03/25 06/04/25 23:59 23:59 23:59 23:59 Intake Total 3039.0 2740 1720 100 Output Total 6850 100 Balance -3811.0 2640 1720 100 Meds/Results Medications: Active Medications Generic Name Dose Route Start Last Admin Trade Name Freq PRN Reason Stop Dose Admin Acetaminophen 500 mg 06/02/25 16:50 Acetaminophen 500 Mg Tablet PO Q6H PRN Pain Rated 1-3 Albuterol 2.5 mg 05/30/25 06:49 Albuterol Sulfate Neb 2.5 Mg/3 Ml Inh INHALATION Q4HRT PRN Shortness Of Breath Clonazepam 0.5 mg 05/31/25 13:27 06/01/25 22:16 Clonazepam (*Crx) 0.5 Mg Tablet PO 0.5 mg BID PRN Administration Anxiety Clonidine HCl 1 patch 05/31/25 09:00 05/31/25 08:23 Clonidine 0.2 Mg/24 Hr Patch TRANSDERM 1 patch WEEKLY ANDRÉS Administration Dextrose 12.5 gm 05/29/25 20:44 05/31/25 05:24 Dextrose 50% 25 Gm/50 Ml Syringe IV PUSH 12.5 gm PRN PRN Administration Hypoglycemia Protocol Gabapentin 300 mg 05/31/25 21:00 06/03/25 21:51 Gabapentin 300 Mg Capsule PO 300 mg HS ANDRÉS Administration Glucagon 1 mg 05/29/25 20:44 05/30/25 07:09 Glucagon For Inj 1 Mg Vial IM 1 mg PRN PRN Administration Hypoglycemia Protocol Glucose 15 gm 05/29/25 20:44 Glucose Oral Gel 15 Gm Of Glucse In 37.5 Gm Tube PO PRN PRN Hypoglycemia Protocol Heparin Sodium (Porcine) 5,000 units 06/01/25 14:00 06/04/25 06:25 Heparin Sodium 5,000 Units/Ml Vial SUB-Q 5,000 units Q8HR ANDRÉS Administration Hydralazine HCl 75 mg 06/01/25 09:00 06/04/25 09:50 Hydralazine Hcl 25 Mg Tablet PO 75 mg On Hold: 06/04/25 13:00 TID ANDRÉS Administration Comment: use IVP while pt AMS Hydralazine HCl 10 mg 06/04/25 15:46 Hydralazine Hcl 20 Mg/Ml Vial IV PUSH Q8H PRN Blood Pressure - High Hydromorphone HCl 1 mg 06/02/25 16:50 Hydromorphone Hcl Inj (*Crx) 1 Mg/Ml Syr IV PUSH Q2H PRN Breakthrough Pain Rated 7-10 or NPO Hydromorphone HCl 0.5 mg 06/02/25 16:50 06/04/25 00:34 Hydromorphone Hcl Inj (*Crx) 1 Mg/Ml Syr IV PUSH 0.5 mg Q2H PRN Administration Breakthrough Pain Rated 4-6 or NPO Dextrose 1,000 mls @ 100 mls/hr 05/29/25 20:44 Dextrose 5% 1,000 Ml IVPB PRN PRN Hypoglycemia Protocol Albumin Human 50 mls @ 999 mls/hr 05/31/25 15:12 Albutein IVPB 06/30/25 15:11 Q10M PRN HYPOTENSION Dextrose/Sodium Chloride 1,000 mls @ 30 mls/hr 06/04/25 09:10 06/04/25 09:50 Dextrose 5% Sodium Chloride 0.9% IV CONT 75 mls/hr .Q24H ANDRÉS Administration Sodium Chloride 1,000 mls @ 999 mls/hr 06/04/25 15:42 Normal Saline Iv IV CONT 06/04/25 16:42 .Q1H1M ONE Sodium Chloride 1,000 mls @ 0 mls/hr 06/04/25 15:42 Normal Saline Iv IV CONT 06/04/25 15:43 .Q0M ONE Per Protocol Losartan Potassium 50 mg 06/02/25 09:00 06/03/25 08:55 Losartan Potassium 25 Mg Tablet PO 50 mg [id number] ANDRÉS Administration Naloxone HCl 0.1 mg 06/02/25 16:50 Naloxone Hcl 0.4 Mg/Ml Vial IV PUSH Q2M PRN Opiate Reversal Nifedipine 60 mg 06/01/25 21:00 06/03/25 21:51 Nifedipine 30 Mg Tab.Er.24 PO 60 mg HS ANDRÉS Administration Ondansetron HCl 4 mg 05/29/25 20:44 06/03/25 21:54 Ondansetron Inj 4 Mg/2 Ml Vial IV PUSH 4 mg Q4H PRN Administration Nausea Phenol 1 spray 05/30/25 06:22 05/30/25 18:57 Phenol/Sod Pheno [place] Blackman (*Bkc) MUCOUS MEM 1 spray PRN PRN Administration Sore Throat Trazodone HCl 50 mg 05/31/25 13:29 06/03/25 21:54 Trazodone Hcl 50 Mg Tablet PO 50 mg HS PRN Administration Insomnia Radiology Results: ITS Impressions Abdomen/Pelvis CT 05/29/25 19:10 IMPRESSION: Right double-J ureteral stent is noted. There is mild right hydronephrosis. The left kidneys atrophy. There is fluid filled distended small bowel loops with multiple air-fluid levels may represent partial to early small bowel obstruction. All CT scans at this facility are performed using low dose modulation techniques as appropriate to perform exam including the following: automated exposure control; use of iterative reconstruction technique; adjustment of the mA and/or kV according to patient size (this includes techniques or standardized protocols for targeted exams where dose is matched to indication/reason for exam). Small Bowel X-Ray 06/01/25 15:30 IMPRESSION: 1. Likely intermittent or partial small bowel obstruction in the distal ileum with transit time to the colon of between 3-4 hours. 2. Multiple postoperative changes in the abdomen and pelvis as detailed above. Carotid Doppler Study 06/01/25 21:01 IMPRESSION: 1. 50-69% stenosis in the right internal carotid artery by sonographic criteria. 2. Greater than or equal to 70% stenosis in the left internal carotid artery by sonographic criteria. Central Venous Line 06/02/25 15:30 IMPRESSION: Fluoroscopy used during central line placement. Chest X-Ray 06/02/25 16:27 Impression: Line placement as above. Probable early right lower lobe pneumonia Abdomen X-Ray 06/03/25 08:23 IMPRESSION: 1. Advancement of oral contrast now predominantly within the colon but with residual dilute contrast within the persistently dilated loop of small bowel in the right lower quadrant consistent with persistent intermittent versus partial obstruction. Labs Labs: Laboratory Results - last 24 hr 06/03/25 06/03/25 06/04/25 16:13 20:16 05:47 WBC RBC Hgb Hct MCV MCH MCHC RDW Plt Count MPV Immature Gran % (Auto) Neut % (Auto) Lymph % (Auto) Murray % (Auto) Eos % (Auto) Baso % (Auto) Lymph # (Auto) Murray # (Auto) Eos # (Auto) Baso # (Auto) Abs Immat Gran (auto) Absolute Neuts (auto) Absolute Nucleated RBC Nucleated RBC % % Immature Plt Fraction Sodium 121 L Potassium 3.4 Chloride 90 L Carbon Dioxide 29 Anion Gap 2 L BUN 20 H D Creatinine 2.83 H Estim Creat Clear Calc 11 Estimated GFR 16 L Glucose 113 H POC Capillary Glucose 128 H 137 H Calcium 9.7 Total Bilirubin 0.3 AST 30 ALT 8 Alkaline Phosphatase 53 Total Protein 5.6 L Albumin 3.0 L 06/04/25 06/04/25 06/04/25 07:43 07:55 11:40 WBC 7.0 RBC 3.88 L Hgb 10.7 L D Hct 34.0 L MCV 87.6 MCH 27.6 MCHC 31.5 L RDW 15.7 H Plt Count 90 L MPV 11.9 H Immature Gran % (Auto) 0.3 Neut % (Auto) 76.2 H Lymph % (Auto) 11.0 L Murray % (Auto) 11.7 H Eos % (Auto) 0.4 Baso % (Auto) 0.4 Lymph # (Auto) 0.77 L Murray # (Auto) 0.8 H Eos # (Auto) 0.0 Baso # (Auto) 0.0 Abs Immat Gran (auto) 0.02 Absolute Neuts (auto) 5.4 Absolute Nucleated RBC 0.000 Nucleated RBC % 0.0 % Immature Plt Fraction 8.9 Sodium Potassium Chloride Carbon Dioxide Anion Gap BUN Creatinine Estim Creat Clear Calc Estimated GFR Glucose POC Capillary Glucose 127 H 138 H Calcium Total Bilirubin AST ALT Alkaline Phosphatase Total Protein Albumin 06/04/25 15:03 WBC RBC Hgb Hct MCV MCH MCHC RDW Plt Count MPV Immature Gran % (Auto) Neut % (Auto) Lymph % (Auto) Murray % (Auto) Eos % (Auto) Baso % (Auto) Lymph # (Auto) Murray # (Auto) Eos # (Auto) Baso # (Auto) Abs Immat Gran (auto) Absolute Neuts (auto) Absolute Nucleated RBC Nucleated RBC % % Immature Plt Fraction Sodium 119 L* Potassium Chloride Carbon Dioxide Anion Gap BUN Creatinine Estim Creat Clear Calc Estimated GFR Glucose POC Capillary Glucose Calcium Total Bilirubin AST ALT Alkaline Phosphatase Total Protein Albumin Hospitalist MIPS Advance Care Plan I have confirmed that the patient's Advanced Care Plan is present, code status is documented, or surrogate decision maker is listed in patient medical record.: Yes Medication Reconciliation I have utilized all available resources to obtain, update and review the patients current medications (includes all prescriptions, OTC, herbals, cannabis, and nutritional supplements).: Yes
--- NOTE | 2025-06-04 18:11 | P.PNNP_ITS ---
Progress Note: A&P Assessment and Plan (1) End stage renal disease: Code(s): N18.6 - End stage renal disease Status: Chronic Assessment and Plan: * normally does HD on Mondays and Fridays - will transition back to this next week * HD on 06/02 with new HD catheter * tentative plan next HD session on Sunday (if remains hospitalized) * follow electrolytes, volume status, and clearance (2) Small bowel obstruction: Code(s): K56.609 - Unspecified intestinal obstruction, unspecified as to partial versus complete obstruction Status: Acute Assessment and Plan: * persistent * admission CT scan of A/P with evidence of early/partial small bowel obstruction * also with history of nausea +vomiting and constipation for the last few days prior to admission * NG tube in place for decompression * s/p removal * General Surgery following with recommendations noted: * likely needs operative intervention * however, high risk given her multiple medical comorbidities * recommending transfer to [facility] where she has had her previous operative interventions...possible transfer later this evening (3) Hyponatremia: Code(s): E87.1 - Hypo-osmolality and hyponatremia Status: Acute Assessment and Plan: * chronic at baseline * likely due to ESRD and underlying malignancy * acute drop noted today * due to use of D5W IVFs... * short session of dialysis today to partially correct (4) Mechanical complication of central venous catheter (CVC): Code(s): T82.594A - Other mechanical complication of infusion catheter, initial encounter Status: Resolved Assessment and Plan: * resolved * right subclavian tunneled HD catheter dysfunction noted with attempted dialysis treatment on 06/01 * she has had numerous HD catheter placements/exchanges since starting dialysis * apparently, her significant vascular disease complicates this issue * s/p removal of right subclavian HD catheter and placement of new RIJ HD catheter (on 06/02) * Surgery following (5) Pneumonia: Qualifiers: Laterality: bilateral Lung location: unspecified part of lung P neumonia type: due to unspecified organism Qualified Code(s): J18.9 - Pneumonia, unspecified organism Code(s): J18.9 - Pneumonia, unspecified organism Status: Acute Assessment and Plan: * as suggested by admission CXR * however, normal WBC, afebrile, and no respiratory symptoms * follow culture data - negative to date * off antibiotics (6) UTI (urinary tract infection): Code(s): N39.0 - Urinary tract infection, site not specified Status: Suspected Assessment and Plan: * admission UA suggestive * follow-up on urine culture - results noted * likely treated by previous antibiotics (7) Essential hypertension: Code(s): I10 - Essential (primary) hypertension Status: Chronic Assessment and Plan: * noted fluctuations since admission * suspect pain issues playing a role along with inability to take po BP medications * PRN IV medications (i.e. hydralazine or labetalol) * resume home oral BP medications as tolerated * follow trend of hemodynamics (8) Anemia: Code(s): D64.9 - Anemia, unspecified Status: Chronic Assessment and Plan: * due to ESRD * JESSY with dialysis * follow trend of H/H Will continue to follow. L Subjective Date/time seen: 06/04/25 18:12 Interval history: Follow-up for end stage renal disease on hemodialysis. Noted drop in sodium level and reported changes in mental status earlier today -- short dialysis treatment today in an effort to correct/improve sodium level; tolerating dialysis treatment reasonably well at the time of my visit (seen on HD at 6:00pm); mentation seems a bit better when seen. Exam 2 Narrative: General: elderly and thin/frail appearing female in NAD Heart: normal S1 and S2; no rub Lungs: clear to auscultation Abdomen: soft, nontender, nondistended, hypoactive bowel sounds Extremities: no cyanosis or clubbing; no edema Skin: no nodules Objective Data Vital Signs Vital Signs: Vital Signs Temp Pulse Resp BP Pulse Ox O2 Del Method 06/04/25 18:00 75 205/76 H 06/04/25 17:41 72 201/79 H 06/04/25 17:34 98.6 F 72 18 189/71 H 99 06/04/25 14:00 98.1 F 71 18 187/59 H 100 06/04/25 09:15 67 06/04/25 06:00 97.7 F 72 14 155/75 H 99 06/04/25 04:00 72 06/04/25 00:00 79 06/03/25 23:04 99 Room Air 06/03/25 22:01 Room Air 06/03/25 21:51 97.9 F 79 18 185/77 H 99 06/03/25 20:00 84 Intake/Output Intake/Output: Intake & Output 06/01/25 06/02/25 06/03/25 06/04/25 23:59 23:59 23:59 23:59 Intake Total 3039.0 2740 1720 100 Output Total 6850 100 0 Balance -3811.0 2640 1720 100 Meds/Results Medications: Active Medications Generic Name Dose Route Start Last Admin Trade Name Freq PRN Reason Stop Dose Admin Acetaminophen 500 mg 06/02/25 16:50 Acetaminophen 500 Mg Tablet PO Q6H PRN Pain Rated 1-3 Albuterol 2.5 mg 05/30/25 06:49 Albuterol Sulfate Neb 2.5 Mg/3 Ml Inh INHALATION Q4HRT PRN Shortness Of Breath Clonazepam 0.5 mg 05/31/25 13:27 06/01/25 22:16 Clonazepam (*Crx) 0.5 Mg Tablet PO 0.5 mg BID PRN Administration Anxiety Clonidine HCl 1 patch 05/31/25 09:00 05/31/25 08:23 Clonidine 0.2 Mg/24 Hr Patch TRANSDERM 1 patch WEEKLY ANDRÉS Administration Dextrose 12.5 gm 05/29/25 20:44 05/31/25 05:24 Dextrose 50% 25 Gm/50 Ml Syringe IV PUSH 12.5 gm PRN PRN Administration Hypoglycemia Protocol Gabapentin 300 mg 05/31/25 21:00 06/03/25 21:51 Gabapentin 300 Mg Capsule PO 300 mg HS ANDRÉS Administration Glucagon 1 mg 05/29/25 20:44 05/30/25 07:09 Glucagon For Inj 1 Mg Vial IM 1 mg PRN PRN Administration Hypoglycemia Protocol Glucose 15 gm 05/29/25 20:44 Glucose Oral Gel 15 Gm Of Glucse In 37.5 Gm Tube PO PRN PRN Hypoglycemia Protocol Heparin Sodium (Porcine) 5,000 units 06/01/25 14:00 06/04/25 16:35 Heparin Sodium 5,000 Units/Ml Vial SUB-Q Not Given Q8HR ANDRÉS Hydralazine HCl 75 mg 06/01/25 09:00 06/04/25 09:50 Hydralazine Hcl 25 Mg Tablet PO 75 mg On Hold: 06/04/25 13:00 TID ANDRÉS Administration Comment: use IVP while pt AMS Hydralazine HCl 10 mg 06/04/25 15:46 Hydralazine Hcl 20 Mg/Ml Vial IV PUSH Q8H PRN Blood Pressure - High Hydromorphone HCl 1 mg 06/02/25 16:50 Hydromorphone Hcl Inj (*Crx) 1 Mg/Ml Syr IV PUSH Q2H PRN Breakthrough Pain Rated 7-10 or NPO Hydromorphone HCl 0.5 mg 06/02/25 16:50 06/04/25 00:34 Hydromorphone Hcl Inj (*Crx) 1 Mg/Ml Syr IV PUSH 0.5 mg Q2H PRN Administration Breakthrough Pain Rated 4-6 or NPO Dextrose 1,000 mls @ 100 mls/hr 05/29/25 20:44 Dextrose 5% 1,000 Ml IVPB PRN PRN Hypoglycemia Protocol Albumin Human 50 mls @ 999 mls/hr 05/31/25 15:12 Albutein IVPB 06/30/25 15:11 Q10M PRN HYPOTENSION Dextrose/Sodium Chloride 1,000 mls @ 30 mls/hr 06/04/25 09:10 06/04/25 09:50 Dextrose 5% Sodium Chloride 0.9% IV CONT 75 mls/hr .Q24H ANDRÉS Administration Losartan Potassium 50 mg 06/02/25 09:00 06/04/25 16:35 Losartan Potassium 25 Mg Tablet PO Not Given [id number] ANDRÉS Naloxone HCl 0.1 mg 06/02/25 16:50 Naloxone Hcl 0.4 Mg/Ml Vial IV PUSH Q2M PRN Opiate Reversal Nifedipine 60 mg 06/01/25 21:00 06/03/25 21:51 Nifedipine 30 Mg Tab.Er.24 PO 60 mg HS ANDRÉS Administration Ondansetron HCl 4 mg 05/29/25 20:44 06/03/25 21:54 Ondansetron Inj 4 Mg/2 Ml Vial IV PUSH 4 mg Q4H PRN Administration Nausea Phenol 1 spray 05/30/25 06:22 05/30/25 18:57 Phenol/Sod Pheno [place] Blackman (*Bkc) MUCOUS MEM 1 spray PRN PRN Administration Sore Throat Trazodone HCl 50 mg 05/31/25 13:29 06/03/25 21:54 Trazodone Hcl 50 Mg Tablet PO 50 mg HS PRN Administration Insomnia Radiology Results: ITS Impressions Abdomen/Pelvis CT 05/29/25 19:10 IMPRESSION: Right double-J ureteral stent is noted. There is mild right hydronephrosis. The left kidneys atrophy. There is fluid filled distended small bowel loops with multiple air-fluid levels may represent partial to early small bowel obstruction. All CT scans at this facility are performed using low dose modulation techniques as appropriate to perform exam including the following: automated exposure control; use of iterative reconstruction technique; adjustment of the mA and/or kV according to patient size (this includes techniques or standardized protocols for targeted exams where dose is matched to indication/reason for exam). Small Bowel X-Ray 06/01/25 15:30 IMPRESSION: 1. Likely intermittent or partial small bowel obstruction in the distal ileum with transit time to the colon of between 3-4 hours. 2. Multiple postoperative changes in the abdomen and pelvis as detailed above. Carotid Doppler Study 06/01/25 21:01 IMPRESSION: 1. 50-69% stenosis in the right internal carotid artery by sonographic criteria. 2. Greater than or equal to 70% stenosis in the left internal carotid artery by sonographic criteria. Central Venous Line 06/02/25 15:30 IMPRESSION: Fluoroscopy used during central line placement. Chest X-Ray 06/02/25 16:27 Impression: Line placement as above. Probable early right lower lobe pneumonia Abdomen X-Ray 06/03/25 08:23 IMPRESSION: 1. Advancement of oral contrast now predominantly within the colon but with residual dilute contrast within the persistently dilated loop of small bowel in the right lower quadrant consistent with persistent intermittent versus partial obstruction. Labs Labs: Laboratory Tests 06/04/25 07:55 06/04/25 15:03 06/04/25 05:47 Sodium 121 L Potassium 3.4 Chloride 90 L Carbon Dioxide 29 Anion Gap 2 L BUN 20 H D Creatinine 2.83 H Estim Creat Clear Calc 11 Estimated GFR 16 L Glucose 113 H Calcium 9.7 Total Bilirubin 0.3 AST 30 ALT 8 Alkaline Phosphatase 53 Total Protein 5.6 L Albumin 3.0 L Microbiology 06/01/25 04:41 Urine - Urine Clean Catch Legionella pneumophila Serogrp 1 Ag - Final
[2025-06-04] MEDS: ONDANSETRON INJ 4 MG/2 ML VIAL IV PUSH (20:46)
[2025-06-04 22:09] LABS: Sodium 125 mmol/L (137-145)
[2025-06-05] VITALS: PULSE 66
--- NOTE | 2025-06-05 15:31 | P.TS_ITS ---
Transfer Discharge Sum: Prov Provider Date of admission: 05/30/25 13:33 Primary care physician: [employer] PHYSICIAN Admitting clinician: Mahesh Castro MD Consults: 05/29/25 Consult to Physician Routine Comment: Consulting Provider: Marzena Limon Reason for consultation: ESRD on HD M/F Has provider been notified: Yes Consult to Physician Routine Comment: Consulting Provider: Yonas Gonzalez Reason for consultation: early/partial SBO Has provider been notified: Yes Receiving physician/facility: [facility] DS: Admitting Diagnosis Discharge Date 06/04/25 Admitting Diagnosis SBO DS: Discharge Diagnosis Discharge Diagnosis (1) End-stage renal disease on hemodialysis: Code(s): N18.6 - End stage renal disease; Z99.2 - Dependence on renal dialysis Status: Chronic (2) UTI (urinary tract infection): Code(s): N39.0 - Urinary tract infection, site not specified Status: Suspected (3) Pneumonia: Qualifiers: Laterality: bilateral Lung location: unspecified part of lung Pneumonia type: due to unspecified organism Qualified Code(s): J18.9 - Pneumonia, unspecified organism Code(s): J18.9 - Pneumonia, unspecified organism Status: Acute (4) Essential hypertension: Code(s): I10 - Essential (primary) hypertension Status: Chronic (5) Small bowel obstruction: Code(s): K56.609 - Unspecified intestinal obstruction, unspecified as to partial versus complete obstruction Status: Acute Plan 70-year-old female with past medical history of hypertension, end-stage renal disease on dialysis presented with not feeling well, generalized weakness. Patient has history of multiple abdominal surgeries, small bowel obstruction. CT abdomen pelvis showed fluid filled distended small bowel loops with multiple air-fluid levels may represent partial to early small bowel obstruction. Chest x-ray was suggestive of bilateral pneumonia. 1. Small-bowel obstruction: Status post NG tube removal 05/29 - 06/02 Small-bowel follow-through shows partial obstruction Surgery following, appreciate rec Tolerating p.o. meds with sips Supplement potassium Had bowel movement x2 Surgery would like to operate as soon as possible however history of carotid stenosis, end-stage renal disease and general comorbidities are very high risk for patient. As such, surgery service prefer the patient be transferred to [facility] for operative management given she has surgeons there she is being seen there and can be seen by vascular they are to treat carotid stenosis. When this was discussed with the patient she declined to transferring says she wants to go home before going to another hospital. Given the acute nature of her symptoms this is not feasible at this time. Will discuss with patient and family in regards to best next steps: Transferred to [facility], transferred to hospice, discharged home against medical advice. Patient ultimately agreed for transfer and [facility] agreed to accept patient. Was informed by [facility] bed is available however due to acute need for dialysis will be held for patient as she undergoes dialysis today. 2. Multifocal pneumonia: Patient in room air Completed azithromycin Completed ceftriaxone 3. UTI ruled out, urine culture has been negative 4. End-stage renal disease on dialysis: Nephrology following Dialysis as per Renal Supplement potassium as indicated 5. Hypertension: Resume home dose hydralazine, losartan, nifedipine Continue with clonidine patch Significant elevations in blood pressure today, patient will receive dialysis today to assist with this 6. Recent hypoglycemia: Due to NPO status Continue with D5 until NPO Blood glucose check q.6 hours for now 7. Hyponatremia Sodium reduced from 129-121, then 119 D5 water was used to D5 NS Discussed with renal, patient will go for dialysis today to assist with sodium levels Mental status has been slightly reduced compared to yesterday, likely due to a decrease in sodium Patient will be transferred to [facility] after dialysis 7. Code status: Full 8. DVT prophylaxis: Heparin subQ 9. Disposition: Transferred to [facility] Transfer Discharge Sum: Med Medications Active and Home Medications: Home Medications aspirin 325 mg tablet 325 mg PO HS 11/26/22 [History Confirmed 05/29/25] clonazepam 1 mg tablet 0.5 mg PO BID PRN Anxiety 11/26/22 [History Confirmed 05/29/25] furosemide 40 mg tablet 40 mg PO BID 11/26/22 [History Confirmed 05/29/25] gabapentin 300 mg capsule 300 mg PO HS 11/26/22 [History Confirmed 05/29/25] Colace 100 mg PO DAILY PRN Constipation 04/10/24 [History Confirmed 05/29/25] Miralax 17 g PO DAILY PRN Constipation 04/10/24 [History Confirmed 05/29/25] Vitamin D3 1,000 units PO DAILY 04/10/24 [History Confirmed 05/29/25] losartan 25 mg tablet 50 mg (2 x 25 mg) PO DAILY #30 tabs 04/14/24 [Rx Confirmed 05/29/25] hydralazine 25 mg tablet 75 mg PO TID 05/29/25 [History Confirmed 05/29/25] nifedipine 30 mg tablet,extended release 24 hr (Procardia XL) 60 mg PO HS 05/29/25 [History Confirmed 05/29/25] octreotide acetate 100 mcg/mL (1 mL) injection syringe 100 mcg subcut Q24H PRN diarrhea 05/29/25 [History Confirmed 05/29/25] ondansetron 8 mg disintegrating tablet 8 mg translingual Q8H PRN nausea and vomiting 05/29/25 [History Confirmed 05/29/25] pantoprazole 40 mg tablet,delayed release 40 mg PO DAILY 05/29/25 [History Confirmed 05/29/25] Transfer Discharge Sum: Hosp Hospital Course Hospital course: This is a 70-year-old female patient to has a history of endocrine he answer in her intestine. The patient presented via EMS with complaints of weakness. She has been feeling ill over the last 3 days. She does have end-stage renal disease and has dialysis on Mondays and Fridays. The patient did not go to dialysis on Sunday. She at has been having some nausea vomiting was having difficulty keeping any oral substance in her system. The patient had been constipated for 3-4 days. The patie her magnesium was high at 2.4. Nt has a history of having multiple abdominal surgery he has and has had a small bowel obstruction in the past. She denies any cough for fever chills. She denies any urinary symptoms. Abnormal labs sodium 123, BUN 42, creatinine 3.8, and GF are 12. Abdominal CT was read as the following-Right double-J ureteral stent is noted. There is mild right hydronephrosis. The left kidneys atrophy. There is fluid filled distended small bowel loops with multiple air-fluid levels may represent partial to early small bowel obstruction.chest x ray read as bilateral pneumonia. Urine results 3+ leukocyte esterase, urine RBC 3-5, urine wbc's 51-100. The patient has been started on a Zithromax and Rocephin. The NG tube was placed in the emergency room. Nephrology as well as surgery have been consulted from the emergency room. The patient is being admitted at as observation status on the date of service of 05/30/2025. Patient was seen by Nephrology resumed on dialysis, Mondays and Fridays. NG tube was placed in the ED, surgery is following and diagnosed small-bowel obstruction which is recurrent. Suction was started on NG tube. Surgery aware of significant surgical risks including left carotid stenosis, malnutrition with BMI of 16 peripheral vascular disease, neuroendocrine cancer, lung cancer history, and of course ESRD on hemodialysis. Patient began to improve symptomatic atrial course and diet was advanced to clear liquids initially. Patient meanwhile was being treated for UTI and pneumonia, UTI was ruled out his urine culture ended up negative. Are continued follow-up by surgery service showed persistent partial small bowel obstruction. Patient's dialysis catheter also needed to be replaced as her current catheter had failed. Given no con tinued improvement of obstruction, surgical management was recommended however given above risk factors especially including carotid stenosis, surgery recommended transfer to outside hospital as there is no vascular service here in-house to fully assess patient prior to any kind of operative management. Patient completed antibiotics for pneumonia during hospitalization. Transfer was arranged and discussed, oncology team at [facility] accepted patient. While waiting for bed at [facility], patient's sodium dropped from 129-121 then to 119. Discussion with Nephrology revealed primary options to be hypertonic saline which is not recommended given patient's high blood pressure, or short course of dialysis. After discussion with accepting hospital, dialysis was performed and patient was then deemed ready for transfer. Patient Condition: Gaurded Prognosis Time Spent with Patient Time attestation: Total time spent providing and/or coordinating transfer services: Exam Const: General: cooperative, comfortable and underweight Orientation/consciousness: No confusion Other: Slightly decreased mental status however AAO x3 GI: Inspection: non-distended, scaphoid and scar GI Palp: Yes Firmness to palpation present (GI), Yes Tenderness to palpation present (GI) (Diffusely tender, more in the RLQ where mesh hernia repair palpable.), No Guarding due to palpation present (GI), No Hernia present, No Ascites present and No Rebound tenderness present DS: Data Data Completed and Pending Labs on day of discharge: Labs from last 24 hours 06/04/25 06/04/25 21:56 21:17 Sodium 125 L POC Capillary Glucose 105
== END 2025-06-04 17:19 | disposition short-term general hospital (02) | DRG 388 ==
LOC: ANHED 20:55 → ANHIMU 22:25 → ANH3MEDSUR 06-01 16:14
PROVIDERS: Emergency Medicine; Internal Medicine; Internal Medicine Nephrology; Nurse Practitioner; Student in an Organized Health Care Education/Training Program; Surgery; Admitting Provider Internal Medicine; Emergency Provider Physician Assistant; Visit Provider Student in an Organized Health Care Education/Training Program
PROC: 0JPT0XZ Removal of Tunneled Vascular Access Device from Trunk Subcutaneous Tissue and Fascia, Open Approach (ICD-10-PCS; CPT 36908; principal; 2025-06-02 13:00)
DX: K56.609 Unspecified intestinal obstruction, unspecified as to partial versus complete obstruction (principal); J18.9 Pneumonia, unspecified organism; N18.6 End stage renal disease; I12.0 Hypertensive chronic kidney disease with stage 5 chronic kidney disease or end stage renal disease; N13.30 Unspecified hydronephrosis; E44.0 Moderate protein-calorie malnutrition; Z68.1 Body mass index [BMI] 19.9 or less, adult; C7A.8 Other malignant neuroendocrine tumors; T82.594A Other mechanical complication of infusion catheter, initial encounter; E87.1 Hypo-osmolality and hyponatremia; Z99.2 Dependence on renal dialysis; D63.1 Anemia in chronic kidney disease; E16.2 Hypoglycemia, unspecified; E03.9 Hypothyroidism, unspecified; F41.9 Anxiety disorder, unspecified; I48.91 Unspecified atrial fibrillation; I73.9 Peripheral vascular disease, unspecified; I25.10 Atherosclerotic heart disease of native coronary artery without angina pectoris; I65.22 Occlusion and stenosis of left carotid artery; K59.00 Constipation, unspecified; Z90.49 Acquired absence of other specified parts of digestive tract; Z95.1 Presence of aortocoronary bypass graft; Z87.891 Personal history of nicotine dependence; Z79.82 Long term (current) use of aspirin; Z20.822 Contact with and (suspected) exposure to COVID-19; Z91.199 Patient's noncompliance with other medical treatment and regimen due to unspecified reason; Z85.118 Personal history of other malignant neoplasm of bronchus and lung
CPT/HCPCS: 36415; 71045; 71046; 74018; 74176; 74250; 77001; 80048; 80053; 80069; 81001; 82948; 83605; 83735; 84295; 85025; 85027; 85055; 85610; 85730; 86706; 87040; 87081; 87086; 87340; 87449; 87637; 87641; 93005; 93880; 96361; 96365; 96367; 96372; 96375; 97110; 97161; 97166; 97530; 97535; 99285; J0690; A9270; C1750; G0257; G0378; J0360; J0456; J0696; J1171; J1610; J1644; J2003; J2004; J2250; J2405; J2704; J3010; J3480; J7030; J7040; J7042; J7050; J7070